=== PATIENT | male | born 1965 | race Hispanic/Latino ===

== ENCOUNTER 2017-09-30 11:13 | Emergency (ER) | payer OTHER ==
--- OUTSIDE RECORDS SUMMARY | 2017-09-30 11:15 | XMS REPORT | Clinical Summary ---
:1965 Author Organization [facility] Address [address] [place] [address] Phone Care Team Providers Name Role Phone Unavailable Primary Care Provider Unavailable Allergies No Known Allergies Current Medications Prescription Sig. Disp. Refills Start End Date Status Date gabapentin Take 300 mg by Active (NEURONTIN) 300 MG mouth 3 (three) capsule times daily. calcium acetate Take 667 mg by Active (PHOSLO) 667 mg mouth 3 (three) capsule times daily with meals. sevelamer Take 800 mg by Active (RENVELA) 800 mg mouth 3 (three) tablet times daily with meals. insulin aspart Inject 34 Units Active protamine-insulin subcutaneously 2 aspart (NOVOLOG (two) times daily MIX 70/30) 100 with breakfast and unit/mL (70-30) dinner . Soln injection omeprazole Take 20 mg by mouth Active (PRILOSEC) 20 MG daily. capsule melatonin 3 mg Tab Take 1 mg by mouth Active tablet nightly. midodrine Take 10 mg by mouth Active (PROAMATINE) 10 MG 3 (three) times tablet daily 5-10 mg 30 minutes before dialysis . amitriptyline Take 10 mg by mouth Active (ELAVIL) 10 MG nightly. tablet loratadine Take 10 mg by mouth Active (CLARITIN) 10 mg daily. tablet aspirin 81 MG EC Take 1 tablet (81 90 tablet 0 //201 12/03/ Active tablet mg total) by mouth 7 18 daily. carvedilol (COREG) Take 1 tablet 180 tablet 0 07/12/201 07/12/20 Active 3.125 MG tablet (3.125 mg total) by 7 18 mouth 2 (two) times daily. ticagrelor Take 1 tablet (90 180 tablet 0 Active (BRILINTA) 90 mg mg total) by mouth 7 Tab tablet 2 (two) times daily. atorvastatin Take 1 tablet (40 90 tablet 0 12/04/19 Active (LIPITOR) 40 MG mg total) by mouth 7 18 tablet daily. meclizine Take 25 mg by mouth 12/03/19 Discontinued (ANTIVERT) 25 mg 3 (three) times 17 tablet daily as needed (Nausea). thiamine (VITAMIN Take 100 mg by 12/03/19 Discontinued B-1) 100 MG tablet mouth daily. 17 ascorbic acid, Take 1,000 mg by 12/03/19 Discontinued vitamin C, mouth daily. 17 (VITAMIN C) 1000 MG tablet vitamin E 1000 Take 1,000 Units by 12/03/19 Discontinued UNIT capsule mouth daily. 17 Active Problems Problem Noted Date Coronary artery disease involving kaw coronary artery of kaw heart 12/03 without angina pectoris Last Assessment & Plan: Controlled at this time. Continue medications as prescribed. Pre-transplant evaluation for ESRD (end stage renal disease) 12/02/2016 Last Assessment & Plan: He will need a vascular evaluation prior to kidney transplant. Pre-transplant evaluation for chronic kidney disease 10/15/2016 ESRD (end stage renal disease) on dialysis ([facility]) 10/15/2016 Type 2 diabetes mellitus with renal complication ([facility]) 10/15/2016 Last Assessment & Plan: Continue follow up with primary care physician regarding blood glucose management. Diabetic retinopathy associated with type 2 diabetes mellitus (HCC) 10/15/2016 Diabetic neuropathy associated with type 2 diabetes mellitus ([facility]) 10/15/2016 Syncope 10/15/2016 Poor dentition 10/15/2016 Secondary hyperparathyroidism of renal origin ([facility]) 10/15/2016 Anemia in chronic kidney disease(285.21) 10/15/2016 GERD (gastroesophageal reflux disease) 10/15/2016 Obesity (BMI 35.0-39.9 without comorbidity) 10/15/2016 Last Assessment & Plan: He was encouraged to monitor his intake and exercise as tolerated. Encounters Date Type Specialty Care Team Description 06/19/2017 Telephone Transplant Alin, Follow-up Christy L 05/06/2017 Telephone Transplant Simbaparoshni, Follow-up Christy L 05/05/2017 Telephone Transplant Alin, Follow-up Christy L 01/15/2017 Office Visit Cardiology Dipak PVD (peripheral vascular Umu disease) ([facility]) (Primary MD Liss Dx) 01/15/2017 Orders Only Lab Tacho Dixon Anemia in chronic kidney A disease (CODE) ;ESRD (end stage renal disease) on dialysis ([facility]) 01/15/2017 Orders Only Transplant Anayelio, ESRD (end stage renal LUCIA Wise disease) on dialysis ([facility]) (Primary Dx);Anemia in chronic kidney disease (CODE) 12/30/2016 Evaluation Transplant Kenyatta Abdul ESRD (end stage renal MD Anjel disease) ([facility]) (Primary Lands, Vicki Dx);Coronary artery KERRY Wise disease involving kaw coronary artery of kaw heart without angina pectoris;Pre-transplant evaluation for ESRD (end stage renal disease);Obesity (BMI 35.0-39.9 without comorbidity) ([facility]) 12/16/2016 Telephone Transplant Alin, Follow-up Christy L 12/02/2016 Hospital Encounter Cardiac Pantera Nash, Anemia in chronic kidney - Intensive Care MD disease;Pre-transplant 12/03/2016 Marianne Abbasi, evaluation for ESRD (end MD stage renal disease);Diabetic polyneuropathy associated with type 2 diabetes mellitus ([facility]);ESRD (end stage renal disease) on dialysis ([facility]);Obesity (BMI 35.0-39.9 without comorbidity) ([facility]);Pre-transplant evaluation for chronic kidney disease;Secondary hyperparathyroidism of renal origin ([facility]) 12/02/2016 Orders Only General Internal Medicine 12/02/2016 Procedure Pass 12/02/2016 Surgery Pantera Nash L CATH & CORONARY ANGIOS 11/17/2016 Abstract Transplant Alecia Squires RN 11/12/2016 Committee Review Transplant Christy Ogden 10/30/2016 Documentation Transplant Alecia Squires RN 10/26/2016 Orders Only Transplant Melissa Adams, ESRD (end stage renal RN disease) ([facility]) (Primary Dx) 10/17/2016 Lab Requisition Lab Kenyatta Abdul MD 10/15/2016 Evaluation Transplant Kenyatta Abdul ESRD (end stage renal MD Anjel disease) ([facility]) (Primary Dx);Pre-transplant evaluation for chronic kidney disease;ESRD (end stage renal disease) on dialysis ([facility]);Type 2 diabetes mellitus with chronic kidney disease on chronic dialysis, with long-term current use of insulin ([facility]);Diabetic retinopathy associated with type 2 diabetes mellitus, macular edema presence unspecified, unspecified laterality, unspecified retinopathy severity ([facility]) 10/15/2016 Evaluation Transplant Madina Abdulh ESRD (end stage renal MD Anjel disease) ([facility]) 10/15/2016 Orders Only Lab Kenyatta Abdul ESRD (end stage renal MD Anjel disease) ([facility]) 10/15/2016 Hospital Encounter Cardiology Kenyatta Abdul ESRD (end stage renal MD Anjel disease) ([facility]) 10/15/2016 Hospital Encounter Radiology Madina Abdulh ESRD (end stage renal MD Anjel disease) ([facility]) 10/15/2016 Telephone Transplant Melissa Adams, Follow-up RN 10/15/2016 Social Work Transplant Sharmaine Smith LCSW 10/14/2016 Telephone Transplant Alin, Follow-up Christy Raphael after 09/29/2016 Family History Medical History Relation Name Comments Diabetes Father Heart disease Father Hypertension Father Relation Name Status Comments Father Social History Tobacco Use Types Packs/Day Years Used Date Never Smoker Smokeless Tobacco: Never Used Alcohol Use Drinks/Week oz/Week Comments No Sex Assigned at Date Recorded Not on file Last Filed Vital Signs Vital Sign Reading Time Taken Blood Pressure 127/63 01/15/2017 8:43 AM CDT Pulse 87 01/15/2017 8:43 AM CDT Temperature 36.8 C (98.2 F) 01/15/2017 8:43 AM CDT Respiratory Rate 14 01/15/2017 8:43 AM CDT Oxygen Saturation 99% 01/15/2017 8:43 AM CDT Inhaled Oxygen Concentration - - Weight 101.6 kg (224 lb) 01/15/2017 8:43 AM CDT Height 165.1 cm (5' 5") 01/15/2017 8:43 AM CDT Body Mass Index 37.28 01/15/2017 8:43 AM CDT Plan of Treatment Health Maintenance Due Date Last Done Comments INFLUENZA VACCINE 02/22/2018 Implants Implanted Type Area Chief Of Party Device Expiration Model / Identifier Date Serial / Lot Promus Premier Stents-C Coronary [place] 12/30/2017 [id number] / Implanted: Qty: 1 on 12/02/2016 by Pantera Nash MD [employer] / [id number] Procedures Procedure Name Priority Date/Time Associated Diagnosis Comments ABD AO & LOWER EXT 12/02/2016 1:42 PM CDT Z01.818 PRE TRP EVAL ANGIOS/ POSS PPI Case Notes POP6 POSS PCI L CATH & CORONARY ANGIOS 12/02/2016 1:42 PM CDT Z01.818 PRE TRP EVAL Case Notes POP6 POSS PCI after 09/29/2016 Results Occult blood, stool (01/15/2017 9:43 AM)Only the most recent of2 resultswithin the time period is included. Component Value Ref Range Occult blood Positive (A) Negative Specimen Performing Laboratory Stool [address] [address] T Spot TB (12/30/2016 8:49 AM)Only the most recent of2 resultswithin the time period is included. Component Value Ref Range T-Spot TB Negative Neg Ctrl Spot Count 1 Panel A Spot 2 Panel B Spot [address] >20 Scan Result Specimen Performing Laboratory Blood [facility] [address] [facility], [address] [place] [address] VASCULAR DIAGRAM -SCAN (12/26/2016 3:00 PM)Only the most recent of4 resultswithin the time period is included.CARDIAC CATH REPORT - SCAN (2016 11:07 AM)RHYTHM STRIP - SCAN (12/04/2016 11:07 AM)POC-Glucose meter (2016 11:29 AM)Only the most recent of6 resultswithin the time period is included. Component Value Ref Range POC-Glucose Meter 161 (H)Comment: TESTED AT [address] 70 - 110 mg/[place] [address] Specimen Performing Laboratory Blood [address] [address] Hemodialysis (12/03/2016 10:38 AM) Junior Sellers V RN 12/03/2016 10:38 AM Hd completed. Lab Results Component Value Date WBC 8.8 12/03/2016 HGB 12.3 (L) 12/03/2016 HCT 37.6 (L) 12/03/2016 MCV 101.0 (H) 12/03/2016 PLT 279 12/03/2016 Lab Results Component Value Date GLUCOSE 85 12/03/2016 CALCIUM 8.9 12/03/2016 NA 138 12/03/2016 K 5.7 (H) 12/03/2016 CO2 19 (L) 12/03/2016 CL 103 12/03/2016 BUN 59 (H) 12/03/2016 CREATININE 10.73 (H) 12/03/2016 Lab Results Component Value Date HEPBSAG Nonreactive 12/03/2016 ] Completed 3.5 hours dialysis and tolerated 2 liters off. V/s stable. Hepatitis B surface antigen (12/03/2016 7:16 AM)Only the most recent of2 resultswithin the time period is included. Component Value Ref Range hepatitis B Surface Ag Nonreactive Nonreactive Specimen Performing Laboratory Blood [address] [address] Narrative For chronic HD patients, draw HBsAg with each admission then every 30 days. CBC (Hemogram only) (12/03/2016 4:33 AM) Component Value Ref Range WBC 8.8 4.0 - 10.0 K/L RBC 3.70 (L) 4.20 - 5.80 M/L Hemoglobin 12.3 (L) 13.0 - 16.8 GM/DL Hematocrit 37.6 (L) 40.0 - 50.0 % MCV 101.0 (H) 82.0 - 98.0 fL MCH 33.2 (H) 27.0 - 33.0 pg MCHC 32.7 32.0 - 36.0 GM/DL RDW 13.3 10.3 - 14.2 % Platelets 279 150 - 430 K/CU MM MPV 6.5 6.5 - 10.5 fL nRBC 0 0 - 0 /100 WBC Specimen Performing Laboratory Blood [address] [address] Narrative 0.00 Magnesium (12/03/2016 4:33 AM) Component Value Ref Range Magnesium 2.6Comment: Specimen moderately hemolyzed 1.6 - 2.6 mg/dL Specimen Performing Laboratory Blood [address] [address] Basic metabolic panel (12/03/2016 4:33 AM)Only the most recent of2 resultswithin the time period is included. Component Value Ref Range Sodium 138 136 - 145 meq/L Potassium 5.7 (H)Comment: Specimen moderately hemolyzed 3.5 - 5.1 meq/L Chloride 103 98 - 107 meq/L CO2 19 (L) 22 - 29 meq/L BUN 59 (H) 7 - 21 mg/dL Creatinine 10.73 (H)Comment: Specimen moderately hemolyzed 0.57 - 1.25 mg/dL Glucose 85 70 - 105 mg/dL Calcium 8.9 8.4 - 10.2 mg/dL EGFR 5Comment: ESTIMATED GFR IS NOT ACCURATE CREATININE mL/min/1.73 sq m CLEARANCE IN PREDICTING GLOMERULAR FILTRATION RATE. ESTIMATED GFR IS NOT APPLICABLE FOR DIALYSIS PATIENTS. Specimen Performing Laboratory Blood [address] [address] POC ACTIVATED CLOTTING TIME (12/02/2016 8:01 PM)Only the most recent of5 resultswithin the time period is included. Component Value Ref Range Activated Clotting Time 131Comment: TESTED AT [address] sec [address] Specimen Performing Laboratory [address] [address] Potassium (12/02/2016 6:27 PM) Component Value Ref Range Potassium 5.0 3.5 - 5.1 meq/L Specimen Performing Laboratory Blood [address] [address] ECG 12 lead (12/02/2016 11:22 AM) Specimen Performing Laboratory GE MUSE Narrative Ventricular Rate 81 BPM Atrial Rate 81 BPM P-R Interval 178 ms QRS Duration 100 ms Q-T Interval 396 ms QTC Calculation(Bazett) 460 ms P [place] 54 degrees R [place] 97 degrees T [place] 55 degrees Normal sinus rhythm Rightward axis Borderline ECG When compared with ECG of 29-JUL-2016 14:48, Nonspecific T wave abnormality now evident in Anterior leads Confirmed by Rohith Alvarez Alireaz ([id number]) on 12/05/2016 7:51:44 PM Procedure Note Interface, External Ris In - 12/05/2016 7:51 PM CDT Ventricular Rate 81 BPM Atrial Rate 81 BPM P-R Interval 178 ms QRS Duration 100 ms Q-T Interval 396 ms QTC Calculation(Bazett) 460 ms P [place] 54 degrees R [place] 97 degrees T [place] 55 degrees Normal sinus rhythm Rightward axis Borderline ECG When compared with ECG of 29-JUL-2016 14:48, Nonspecific T wave abnormality now evident in Anterior leads Confirmed by Rohith Alvarez Alireaz ([id number]) on 12/05/2016 7:51:44 PM PT/aPTT (12/02/2016 10:22 AM)Only the most recent of2 resultswithin the time period is included. Component Value Ref Range Protime 13.0 11.7 - 14.7 seconds INR 1.0 <=5.9 PTT 29.2 22.5 - 36.0 seconds Specimen Performing Laboratory Blood [facility] [address] RECOMMENDED COUMADIN/WARFARIN INR THERAPY RANGES STANDARD DOSE: 2.0 - 3.0 Includes: PROPHYLAXIS for venous thrombosis, systemic embolization; TREATMENT for venous thrombosis and/or pulmonary embolus. HIGH RISK: Target INR is 2.5-3.5 for patients with mechanical heart valves. CBC with platelet count + automated diff (12/02/2016 10:22 AM)Only the most recent of2 resultswithin the time period is included. Component Value Ref Range WBC 6.1 4.0 - 10.0 K/L RBC 3.71 (L) 4.20 - 5.80 M/L Hemoglobin 12.4 (L) 13.0 - 16.8 GM/DL Hematocrit 36.8 (L) 40.0 - 50.0 % MCV 99.2 (H) 82.0 - 98.0 fL MCH 33.4 (H) 27.0 - 33.0 pg MCHC 33.6 32.0 - 36.0 GM/DL RDW 14.0 10.3 - 14.2 % Platelets 297 150 - 430 K/CU MM MPV 6.3 (L) 6.5 - 10.5 fL nRBC 0 0 - 0 /100 WBC % Neutros 62 % % Lymphs 26 % % Monos 9 % % Eos 2 % % Baso 1 % # Neutros 3.83 1.80 - 8.00 K/L # Lymphs 1.59 1.48 - 4.50 K/L # Monos 0.55 0.00 - 1.30 K/L # Eos 0.13 0.00 - 0.50 K/L # Baso 0.05 0.00 - 0.20 K/L Specimen Performing Laboratory Blood [address] [address] Narrative 0.00 CBC with platelet count + automated diff (12/02/2016 10:22 AM)Only the most recent of2 resultswithin the time period is included. Specimen Performing Laboratory Blood Narrative The following orders were created for panel order CBC with platelet count + automated diff. Procedure Abnormality Status --------- ------ CBC with platelet count ...[[id number]]AbnormalFinal result Please view results for these tests on the individual orders. HLA Testing (External Results) (10/15/2016 12:32 PM) Component Value Ref Range HLA TESTING (EXTERNAL) See Separate Report Specimen Performing Laboratory Blood [facility] IMMUNE EVALUATION LAB [facility] [place], [place]:[address] [address] HIV-1 Antigen with HIV-1/2 Antibody (10/15/2016 12:32 PM) Component Value Ref Range HIV-1 Antigen with HIV 1&2 Antibody Nonreactive Nonreactive Specimen Performing Laboratory Blood [address] [address] Hepatitis C Antibody (10/15/2016 12:32 PM) Component Value Ref Range Hepatitis C Ab Nonreactive Nonreactive Specimen Performing Laboratory [address] [address] Cytomegalovirus antibody, IgM (10/15/2016 12:32 PM) Component Value Ref Range CMV IgM Negative Specimen Performing Laboratory Blood [address] [address] Hepatitis B core antibody, IgM (10/15/2016 12:32 PM) Component Value Ref Range Hep B C IgM Nonreactive Nonreactive Specimen Performing Laboratory Blood [address] [address] EBV-VCA antibody, IgM (10/15/2016 12:32 PM) Component Value Ref Range EBV VCA IgM Negative Specimen Performing Laboratory [address] [address] EBV-VCA antibody, IgG (10/15/2016 12:32 PM) Component Value Ref Range EBV VCA IgG Positive Specimen Performing Laboratory Blood [address] [address] Blood typing, automated (10/15/2016 12:32 PM) Component Value Ref Range ABO/RH AUTOMATED (BEAKER) O POSITIVE Specimen Performing Laboratory [address] [address] RPR (10/15/2016 12:32 PM) Component Value Ref Range RPR Nonreactive Nonreactive Specimen Performing Laboratory Blood [address] [address] Hepatitis B surface antibody (10/15/2016 12:32 PM) Component Value Ref Range Hep B S Ab 9.6 (H) <8.0 mIU/mL Specimen Performing Laboratory Blood [address] [address] Cytomegalovirus antibody, IgG (10/15/2016 12:32 PM) Component Value Ref Range CMV IgG Positive Specimen Performing Laboratory Blood [address] [address] Direct AHG (SHIRIN)/Direct Efraín (10/15/2016 12:32 PM) Component Value Ref Range Direct AHG-IGG NEGATIVE Direct AHG-C3B, C3D NEGATVIE Specimen Performing Laboratory [address] [address] Varicella Zoster Antibody, IgG (10/15/2016 12:32 PM) Component Value Ref Range Varicella IgG 1.6 Al Specimen Performing Laboratory [address] [address] Narrative VARICELLA ZOSTER RESULT INTERPRETATIONS: <=0.8 AlNonreactive:Presumed non-immune to VZV 0.9-1.0 AlEquivocal >=1.1 AlReactive:Presumed immune to VZV Uric Acid (10/15/2016 12:32 PM) Component Value Ref Range Uric Acid 3.9 2.6 - 7.2 mg/dL Specimen Performing Laboratory [address] [address] PSA (10/15/2016 12:32 PM) Component Value Ref Range PSA 0.7 0.0 - 4.0 ng/mL Specimen Performing Laboratory Blood [address] [address] Phosphorus (10/15/2016 12:32 PM) Component Value Ref Range Phosphorus 3.3 2.3 - 4.7 mg/dL Specimen Performing Laboratory [address] [address] PTH, Intact (10/15/2016 12:32 PM) Component Value Ref Range PTH 289.5 (H) 8.5 - 72.5 pg/mL Specimen Performing Laboratory [address] [address] Narrative Effective 04/11/2014: Reference Range Change New: 8.5-72.5 Previous: 15.0-90.0 Lactate Dehydrogenase (LDH) (10/15/2016 12:32 PM) Component Value Ref Range LDH 161 125 - 220 U/L Specimen Performing Laboratory [address] [address] Hemoglobin A1c (10/15/2016 12:32 PM) Component Value Ref Range Hemoglobin A1C 5.9 4.3 - 6.1 % Specimen Performing Laboratory [address] [address] Gamma Glutamyl Transferase (GGT) (10/15/2016 12:32 PM) Component Value Ref Range GGT 12 9 - 64 U/L Specimen Performing Laboratory [address] [address] Lipid panel (10/15/2016 12:32 PM) Component Value Ref Range Triglycerides 230 mg/dL Cholesterol 141 mg/dL HDL 29 mg/dL LDL Calculated 66 mg/dL Specimen Performing Laboratory [address] [address] Narrative Triglyceride Reference Range: Low Risk <150 [id number] High Risk 200-499 Very High Risk>=500 Cholesterol Reference Range: Low Risk <200 [id number] High Risk>240 HDL Cholesterol Reference Range: Low Risk >=60 High Risk <40 LDL Cholesterol Reference Range: Optimal<100 Near Qjefrye165-579 [id number] Lerw522-680 Very High >=190 Comprehensive metabolic panel (10/15/2016 12:32 PM) Component Value Ref Range Protein, Total 7.3 6.0 - 8.3 gm/dL Albumin 3.9 3.5 - 5.0 g/dL Alkaline Phosphatase 130 40 - 150 U/L Total Bilirubin 0.3 0.2 - 1.2 mg/dL Sodium 135 (L) 136 - 145 meq/L Potassium 4.9 3.5 - 5.1 meq/L Chloride 99 98 - 107 meq/L CO2 26 22 - 29 meq/L BUN 29 (H) 7 - 21 mg/dL Creatinine 7.30 (H) 0.57 - 1.25 mg/dL Glucose 176 (H) 70 - 105 mg/dL Calcium 9.3 8.4 - 10.2 mg/dL AST 18 5 - 34 U/L ALT 16 6 - 55 U/L EGFR 8Comment: ESTIMATED GFR IS NOT ACCURATE mL/min/1.73 sq m CREATININE CLEARANCE IN PREDICTING GLOMERULAR FILTRATION RATE. ESTIMATED GFR IS NOT APPLICABLE FOR DIALYSIS PATIENTS. Specimen Performing Laboratory Blood [address] [address] Flow PRA Class I and II (10/15/2016 12:00 PM) Component Value Ref Range Date of Serum [id number] Serum# [id number] Flow PRA Class I and II See Scanned Report Specimen Performing Laboratory Blood [facility] IMMUNE EVALUATION LAB [facility] [place], MS:[address] [address] HLA Typing (10/15/2016 12:00 PM) Component Value Ref Range HLA Result See Scanned Report HLA-A AG1 HLA-A AG2 HLA-B AG1 HLA-B AG2 HLA-C AG1 HLA-C AG2 HLA-DR AG1 HLA-DR 2nd Antigen HLA-DQ AG1 HLA-DQ AG2 HLA-DRW Specimen Performing Laboratory Blood [facility] IMMUNE EVALUATION LAB [facility] [place], [place]:[facility] [address] [place] [address] Stress Echo With Tracing (10/15/2016 10:37 AM) Component Value Ref Range Ejection Fraction LV EF 71.7 % (63-77) Index 35 %/m2 Specimen Performing Laboratory DIGISONICS Narrative Echocardiography Laboratory [address] [place] [address] Voice:[phone] Stress Echocardiogram Pat.Name:MATTHEW GAMBINO Pat.ID:[id number] St.Date: 10/15/2016 Refer.MD:Franko Hobbs Exam Time: 10:37:00 AM Study Type:Echo Complete Height:25.59in Weight:479.6lb BSA: 2.05 m2 DOBAge:1965,51Y Sex: MALEBP:149/69 HR:77 bpm Sonogrphr: Abdias Munoz, RDCS,RVT Pat. Stat.:OutpatientRoom:op Reason for Study:Pre-surgical evaluation of organ transplant History / Clinical:ESRD, Hyperlipidemia, Hypertension Procedures:STRESS ECHO, Definity contrast done SUMMARY: Overall Stress Interp: Normal Stress echo. No evidence of ischemia. Resting echocardographic study is normal with normal chamber sizes and wall motion throughout. Dobutamine infusion was carried out to a peak dose of 30 mcg/kg/min. Target HR 145 bpm achieved Max BP 138/74 No chest pain or ischemic EKG changes were found. Echocardiography was performed throughout the study.Wall motion was enhanced in all regions with no segmental abnormalities noted. In conclusion, the study strongly rules against clinically threatening coronary artery disease. These findings are consistent with low risk stress findings. FINDINGS: RESTING FINDINGS LV: Left ventricular chamber size (by vol index) is normal (male -LVED vol - 34-74 ml/m2). Overall wall motion is normal. LVfunction is normal. Estimated EF is >60%. All norman are normal RV: RV function is normal. RV wall motion is normal. STRESS FINDINGS RV: RV function is normal. RV wall motion is normal. LV: LV function is hyperdynamic. Overall stress wall motion is normal.Estimated EF is >70%. All norman are normal STRESS: Baseline Vital Signs: HR:77 BP:149/69 Stress Test Results: Max HR:146 Target HR: 145 % Target:100 % Max BP:138/74 Max RPP: [id number] Symptoms and Complications: Overall Stress Interp: Normal Stress echo. No evidence of ischemia. MEASUREMENTS: 2D LV EF SinglePlane LV Ad 30.2 cm2(9.5-22.3)* LV CO 4.93 l/min LV As 14.1 cm2(4-11.6)* LV CI 2.4 l/min/m2 LVEDV 89.2 ml (65-193) Index43.5 ml/m2 LV SV 64 ml LVESV 25.3 mlHR77 bpm Left Ventricle LV A% 53.3 %(36-64) WALL MOTION: RESTING WALL MOTION: All norman are normal Wall Index=1 STRESS WALL MOTION: All norman are normal Stress Wall Index=1 Signed 10/15/2016 04:15 PM Rosendo Hutchinson M.D. Procedure Note Interface, External Ris In - 10/15/2016 4:16 PM CDT Echocardiography Laboratory [address] [place] [address] Voice: [phone] Stress Echocardiogram Pat.Name: MATTHEW GAMBINO Pat.ID: [id number] St.Date: 10/15/2016 Refer.MD: Franko Hobbs Exam Time: 10:37:00 AM Study Type:Echo Complete Height: 25.59in Weight: 479.6lb BSA: 2.05 m2 Age: 12 1965,51Y Sex: MALE BP: 149/69 HR: 77 bpm Sonogrphr: Abdias Munoz, RDCS,RVT Pat. Stat.:Outpatient Room: op Reason for Study:Pre-surgical evaluation of organ transplant History / Clinical:ESRD, Hyperlipidemia, Hypertension Procedures:STRESS ECHO, Definity contrast done SUMMARY: Overall Stress Interp: Normal Stress echo. No evidence of ischemia. Resting echocardographic study is normal with normal chamber sizes and wall motion throughout. Dobutamine infusion was carried out to a peak dose of 30 mcg/kg/min. Target HR 145 bpm achieved Max BP 138/74 No chest pain or ischemic EKG changes were found. Echocardiography was performed throughout the study. Wall motion was enhanced in all regions with no segmental abnormalities noted. In conclusion, the study strongly rules against clinically threatening coronary artery disease. These findings are consistent with low risk stress findings. FINDINGS: RESTING FINDINGS LV: Left ventricular chamber size (by vol index) is normal (male - LVED vol - 34-74 ml/m2). Overall wall motion is normal. LV function is normal. Estimated EF is >60%. All norman are normal RV: RV function is normal. RV wall motion is normal. STRESS FINDINGS RV: RV function is normal. RV wall motion is normal. LV: LV function is hyperdynamic. Overall stress wall motion is normal. Estimated EF is >70%. All norman are normal STRESS: Baseline Vital Signs: HR: 77 BP: 149/69 Stress Test Results: Max HR: 146 Target HR: 145 % Target: 100 % Max BP: 138/74 Max RPP: 82067 Symptoms and Complications: Overall Stress Interp: Normal Stress echo. No evidence of ischemia. MEASUREMENTS: 2D LV EF SinglePlane LV Ad 30.2 cm2 (9.5-22.3)* LV CO 4.93 l/min LV As 14.1 cm2 (4-11.6)* LV CI 2.4 l/min/m2 LVEDV 89.2 ml (65-193) Index 43.5 ml/m2 LV SV 64 ml LVESV 25.3 ml HR 77 bpm Left Ventricle LV A% 53.3 % (36-64) WALL MOTION: RESTING WALL MOTION: All norman are normal Wall Index=1 STRESS WALL MOTION: All norman are normal Stress Wall Index=1 Signed 10/15/2016 04:15 PM Rosendo Hutchinson M.D. 2D Echo W/Doppler(CW/PW/Color) (10/15/2016 10:10 AM) Specimen Performing Laboratory [facility] Narrative Echocardiography Laboratory [address] [place] [address] Voice:[phone] Transthoracic Echocardiogram Pat.Name:MATTHEW GAMBINO Pat.ID:[id number] .Date: 10/15/2016 Refer.MD:Franko Hobbs Exam Time: 10:10:00 AM Study Type:Echo Complete Height:25.59in Weight:479.6lb BSA: 2.05 m2 DOBAge:1965,51Y Sex: MALEBP:149/69 HR:77 bpm Sonogrphr: Abdias Munoz RDCS,RVT Pat. Stat.:OutpatientRoom:OP Reason for Study:Pre-surgical evaluation of organ transplant History / Clinical:ESRD, Hyperlipidemia, Hypertension Procedures:2D ECHO W/ DOPPLER (CW/PW/COLOR) SUMMARY: Regular sinus rhythm during the exam. Left ventricular chamber size (by vol index) is normal (male - LVED vol - 34-74 ml/m2). Moderate concentric LV hypertrophy. All of the LV segments contract normally. LVEF by quantitative assessment is increased (>70%). Grade 1 diastolic dysfunction (impaired relaxation and low-normal LA pressure). LA size is normal (16-34 ml/m2). The right ventricular chamber size and systolic function are within normal limits. A trace of tricuspid regurgitation. Estimated Peak systolic PA pressure is 30-35 mm Hg. Aortic root size (Sinus of Valsalva diameter) is normal. The estimated RA pressure by IVC dynamics 5-10 mmHg. FINDINGS: Rhythm/BP: Regular sinus rhythm during the exam. LV: All of the LV segments contract normally. Left ventricular chambersize (by vol index) is normal (male - LVED vol - 34-74ml/m2). Moderate concentric LV hypertrophy. LVEF by quantitativeassessment is increased (>70%). Grade 1 diastolicdysfunction (impaired relaxation and low- normal LApressure). LA: LA size is normal (16-34 ml/m2). RV: The right ventricular chamber size and systolic function are withinnormal limits. RA: RA cavity size is normal. AV: Normal AoV structure and function. MV: Normal MV structure and function. TV: Normal TV structure and function. A trace of tricuspid regurgitation.Estimated Peak systolic PA pressure is 30 -35 mmHg. PV: Normal PV structure and function. AO: Aortic root size (Sinus of Valsalva diameter) is normal. Proximalascending aorta size is normal. Pericard: No pericardial effusion is visualized. Systemic Veins: The estimated RA pressure by IVC dynamics 5-10 mmHg. Quality:Technically excellent exam. MEASUREMENTS: 2D LV EF SinglePlane LV Ad 26.8 cm2(9.5-22.3)* LVESV 9.15 ml LV As 8.46 cm2(4-11.6) LV EF 88 %(63-77)* Index42.9 %/m2 LVEDV 76.1 ml (65-193) Index37.1 ml/m2 LV SV 67 ml Left Ventricle LV A% 68.5 % LV CI 2.52 l/min/m2 LV CO 5.16 l/min LA Sng Plane LA Vol57.1 mlIndex 27.9 ml/m2 LA Area 21 cm2(8.8-23.4) Aorta Ao Sin2.85 cm (2.5-3.3) Parasternal Long [place] Ao An 2.07 cm (1.4-2.6) LV%fs 54.6 %(25-46)* Ao Rtd2.98 cmLVPWd 1.51 cm IVSd1.24 cm LA Ds 3.61 cm (2.3-3.9) LVIDd4.6 cm (4.3-5.1) LV Wmn 1.38 cm LVIDs 2.09 cm (2-4) DOPPLER AV LVOT For Flow [id number] cm/s (70-110)* LVOT CO 6.77 l/min LVOT VTI26.1 cmLVOT CI3.3 l/min/m2 LVOTpkPG7.29 mmHgLVOT Area 3.46 cm2 LVOTmnPG3.19 xvXxPL17 bpm LVOT SV 90.5 ml Aortic Valve AV DI0.981 SVi (LVOT)44.2 AV AV For Flow/EDWARD AV pkVel 143 cm/s (100-170) AV AC/ET 0.259 AV mnVel91.3 cm/sAVpkAcRt 8736 cm/s2 AV pkPG 8.21 mmHgAV DeRt 491 cm/s2 AV mnPG4 mmHgArea (VTI) 3.4 cm2(3-5) AV VTI26.7 cmArea (Jewel) 3.26 cm2(3-5) AV ET292 msec AV AC 76 msec (83-118)* Signed 10/16/2016 07:12 AM Shahram Ernandez M.D. Procedure Note Interface, External Ris In - 10/16/2016 7:14 AM CDT Echocardiography Laboratory [address] [place] [address] Voice: [phone] Transthoracic Echocardiogram Pat.Name: MATTHEW GAMBINO Pat.ID: [id number] .Date: 10/15/2016 Refer.MD: Franko Hobbs Exam Time: 10:10:00 AM Study Type:Echo Complete Height: 25.59in Weight: 479.6lb BSA: 2.05 m2 Age: 12 1965,51Y Sex: MALE BP: 149/69 HR: 77 bpm Sonogrphr: Abdias Munoz RDCS,RVT Pat. Stat.:Outpatient Room: OP Reason for Study:Pre-surgical evaluation of organ transplant History / Clinical:ESRD, Hyperlipidemia, Hypertension Procedures:2D ECHO W/ DOPPLER (CW/PW/COLOR) SUMMARY: Regular sinus rhythm during the exam. Left ventricular chamber size (by vol index) is normal (male - LVED vol - 34-74 ml/m2). Moderate concentric LV hypertrophy. All of the LV segments contract normally. LVEF by quantitative assessment is increased (>70%). Grade 1 diastolic dysfunction (impaired relaxation and low-normal LA pressure). LA size is normal (16-34 ml/m2). The right ventricular chamber size and systolic function are within normal limits. A trace of tricuspid regurgitation. Estimated Peak systolic PA pressure is 30-35 mm Hg. Aortic root size (Sinus of Valsalva diameter) is normal. The estimated RA pressure by IVC dynamics 5-10 mmHg. FINDINGS: Rhythm/BP: Regular sinus rhythm during the exam. LV: All of the LV segments contract normally. Left ventricular chamber size (by vol index) is normal (male - LVED vol - 34-74 ml/m2). Moderate concentric LV hypertrophy. LVEF by quantitative assessment is increased (>70%). Grade 1 diastolic dysfunction (impaired relaxation and low-normal LA pressure). LA: LA size is normal (16-34 ml/m2). RV: The right ventricular chamber size and systolic function are within normal limits. RA: RA cavity size is normal. AV: Normal AoV structure and function. MV: Normal MV structure and function. TV: Normal TV structure and function. A trace of tricuspid regurgitation. Estimated Peak systolic PA pressure is 30-35 mm Hg. PV: Normal PV structure and function. AO: Aortic root size (Sinus of Valsalva diameter) is normal. Proximal ascending aorta size is normal. Pericard: No pericardial effusion is visualized. Systemic Veins: The estimated RA pressure by IVC dynamics 5-10 mmHg. Quality: Technically excellent exam. MEASUREMENTS: 2D LV EF SinglePlane LV Ad 26.8 cm2 (9.5-22.3)* LVESV 9.15 ml LV As 8.46 cm2 (4-11.6) LV EF 88 % (63-77)* Index 42.9 %/m2 LVEDV 76.1 ml (65-193) Index 37.1 ml/m2 LV SV 67 ml Left Ventricle LV A% 68.5 % LV CI 2.52 l/min/m2 LV CO 5.16 l/min LA Sng Plane LA Vol 57.1 ml Index 27.9 ml/m2 LA Area 21 cm2 (8.8-23.4) Aorta Ao Sin 2.85 cm (2.5-3.3) Parasternal Long [place] Ao An 2.07 cm (1.4-2.6) LV%fs 54.6 % (25-46)* Ao Rtd 2.98 cm LVPWd 1.51 cm IVSd 1.24 cm LA Ds 3.61 cm (2.3-3.9) LVIDd 4.6 cm (4.3-5.1) LV Wmn 1.38 cm LVIDs 2.09 cm (2-4) DOPPLER AV LVOT For Flow LVOTpkVel 135 cm/s (70-110)* LVOT CO 6.77 l/min LVOT VTI 26.1 cm LVOT CI 3.3 l/min/m2 LVOTpkPG 7.29 mmHg LVOT Area 3.46 cm2 LVOTmnPG 3.19 mmHg HR 75 bpm LVOT SV 90.5 ml Aortic Valve AV DI 0.981 SVi (LVOT) 44.2 AV AV For Flow/EDWARD AV pkVel 143 cm/s (100-170) AV AC/ET 0.259 AV mnVel 91.3 cm/s AVpkAcRt 8736 cm/s2 AV pkPG 8.21 mmHg AV DeRt 491 cm/s2 AV mnPG 4 mmHg Area (VTI) 3.4 cm2 (3-5) AV VTI 26.7 cm Area (Jewel) 3.26 cm2 (3-5) AV ET 292 msec AV AC 76 msec (83-118)* Signed 10/16/2016 07:12 AM Shahram Ernandez M.D. CTA abdomen & pelvis (10/15/2016 9:09 AM) Specimen Performing Laboratory [facility] Narrative Addendum Begins REPORT STATUS:A Addendum I have reviewed the nonvascular findings and concur with Dr. Mancilla's report. Signed: Ignacia Roach MD Report Verified Date/Time:10/15/2016 14:01:10 Reading Location: [place] [address] Angio Body Reading Room Addendum Ends FINAL REPORT CT angiography of the abdominal aorta and pelvic arteries, 15 Oct 2016 COMPARISON: None available INDICATION: This is a 51 year old male with end-stage renal disease presents for pretransplant assessment. This study is performed in an attempt to avoid an invasive procedure. TECHNIQUE: Spiral acquisition during intravenous contrast administration using a Jessica multidetector CT scanner. Images were obtained before and during the dynamic passage of intravenous contrast material.Multi-planar 3-D volume-rendering reconstruction was performed using an independent workstation interactively by the interpreting physician as well as the 3-D specialist for optimal visualisation of the abdominal aorta, pelvic arteries, and its proximal branches. Please refer to the contrast sheet scanned in the RIS system for the amount and route of contrast given. This exam was performed according to our departmental dose-optimisation programme, which includes automated exposure control, adjustment of the mA and/or kV according to patient size and/or use of iterative reconstruction technique. FINDINGS: VASCULAR:- The abdominal aorta is normal in course, calibre and contour. No obvious atherosclerosis is identified. There is no evidence of acute aortic pathology, specifically, there is no dissection, intramural hematoma, or contained rupture. Quantitative dimensions of the abdominal aorta are as follows: 2.0 cm at the mesenteric segment; 1.7 cm at the renal segment,; and 1.4 cm at the aortic bifurcation. The common iliac, external iliac, common femoral, and the visualized superficial femoral arteries, bilaterally, are widely patent, except for eccentric calcification. Secondary Education Professor dimensions of the left and the right external iliac arteries are 7 - 8 and 8 - 9 mm, respectively. Similarly, the associated pelvic veins are patent with no venous thrombosis identified.Secondary Education Professor dimensions of the left and the right external iliac veins are 11 and 11 mm, respectively. There are single left and right renal arteries that are widely patent. The celiac axis, SMA, and LIZBETH are widely patent.There are single left and right renal veins that drain normally into inferior vena cava. NON-VASCULAR:- The lung bases are unremarkable. No pleural effusion is identified. Minimal atelectatic changes are seen. In the abdomen, the liver and spleen appears unremarkable. The liver edge is smooth. No abnormal enhancing structure is identified. Calcified granuloma is identified in the spleen. Patient is post cholecystectomy. The adrenal glands are not enlarged. The spleen appears grossly unremarkable. Patient has end-stage renal disease status. Some renal vascular calcification is seen. The kidneys are atrophic. No hydronephrosis or perirenal fluid collection is present. Bowel is not well assessed by CT angiography as enteric contrast is not given. No obvious bowel dilation is identified. Bilateral fat-containing inguinal hernia is identified. The appendix appears unremarkable. Incidental note, probable duodenal diverticulum is identified. No free air free fluid seen in the abdomen and pelvis. The prostate gland appears unremarkable. The bladder is not distended. No free air free fluid seen in the abdomen and pelvis. No significant retroperitoneal adenopathy is identified. Small lymph nodes are seen in both groins, considered nonspecific in nature. No acute bony pathology is identified. Sclerotic focus is identified in the left pelvic level image 250, also in the right at image 250, likely represent bone islands. Another bone island is identified in the right femoral head image 222. CONCLUSIONS: 1.The abdominal aorta is normal in course, calibre and contour. There is no evidence of acute aortic pathology, specifically, there is no dissection, intramural hematoma, or contained rupture. Quantitative dimension of the abdominal aorta are as noted. The pelvic arteries and veins are widely patent with no arterial stenosis or venous thrombosis identified. Secondary Education Professor dimensions of the left and the right external iliac arteries and veins are as described above. 2.Patent mesenteric and renal arteries. 3.Other findings as described above 4.An addendum will be dictated regarding the non-vascular findings by the [employer] Maker Radiologist. Signed: Ozzie Mancilla MD Report Verified Date/Time:10/15/2016 09:28:11 Reading Location: [place] [address] Cardiology MRI Procedure Note Interface, External Ris In - 10/15/2016 2:03 PM CDT Addendum Begins REPORT STATUS:A Addendum I have reviewed the nonvascular findings and concur with Dr. Mancilla's report. Signed: Ignacia Roach MD Report Verified Date/Time: 10/15/2016 14:01:10 Reading Location: [place] [id number] Angio Body Reading Room Addendum Ends FINAL REPORT CT angiography of the abdominal aorta and pelvic arteries, 15 Oct 2016 COMPARISON: None available INDICATION: This is a 51 year old male with end-stage renal disease presents for pretransplant assessment. This study is performed in an attempt to avoid an invasive procedure. TECHNIQUE: Spiral acquisition during intravenous contrast administration using a Jessica multidetector CT scanner. Images were obtained before and during the dynamic passage of intravenous contrast material. Multi-planar 3-D volume-rendering reconstruction was performed using an independent workstation interactively by the interpreting physician as well as the 3-D specialist for optimal visualisation of the abdominal aorta, pelvic arteries, and its proximal branches. Please refer to the contrast sheet scanned in the RIS system for the amount and route of contrast given. This exam was performed according to our departmental dose-optimisation programme, which includes automated exposure control, adjustment of the mA and/or kV according to patient size and/or use of iterative reconstruction technique. FINDINGS: VASCULAR:- The abdominal aorta is normal in course, calibre and contour. No obvious atherosclerosis is identified. There is no evidence of acute aortic pathology, specifically, there is no dissection, intramural hematoma, or contained rupture. Quantitative dimensions of the abdominal aorta are as follows: 2.0 cm at the mesenteric segment; 1.7 cm at the renal segment,; and 1.4 cm at the aortic bifurcation. The common iliac, external iliac, common femoral, and the visualized superficial femoral arteries, bilaterally, are widely patent, except for eccentric calcification. Secondary Education Professor dimensions of the left and the right external iliac arteries are 7 - 8 and 8 - 9 mm, respectively. Similarly, the associated pelvic veins are patent with no venous thrombosis identified. Secondary Education Professor dimensions of the left and the right external iliac veins are 11 and 11 mm, respectively. There are single left and right renal arteries that are widely patent. The celiac axis, SMA, and LIZBETH are widely patent. There are single left and right renal veins that drain normally into inferior vena cava. NON-VASCULAR:- The lung bases are unremarkable. No pleural effusion is identified. Minimal atelectatic changes are seen. In the abdomen, the liver and spleen appears unremarkable. The liver edge is smooth. No abnormal enhancing structure is identified. Calcified granuloma is identified in the spleen. Patient is post cholecystectomy. The adrenal glands are not enlarged. The spleen appears grossly unremarkable. Patient has end-stage renal disease status. Some renal vascular calcification is seen. The kidneys are atrophic. No hydronephrosis or perirenal fluid collection is present. Bowel is not well assessed by CT angiography as enteric contrast is not given. No obvious bowel dilation is identified. Bilateral fat-containing inguinal hernia is identified. The appendix appears unremarkable. Incidental note, probable duodenal diverticulum is identified. No free air free fluid seen in the abdomen and pelvis. The prostate gland appears unremarkable. The bladder is not distended. No free air free fluid seen in the abdomen and pelvis. No significant retroperitoneal adenopathy is identified. Small lymph nodes are seen in both groins, considered nonspecific in nature. No acute bony pathology is identified. Sclerotic focus is identified in the left pelvic level image 250, also in the right at image 250, likely represent bone islands. Another bone island is identified in the right femoral head image 222. CONCLUSIONS: 1. The abdominal aorta is normal in course, calibre and contour. There is no evidence of acute aortic pathology, specifically, there is no dissection, intramural hematoma, or contained rupture. Quantitative dimension of the abdominal aorta are as noted. The pelvic arteries and veins are widely patent with no arterial stenosis or venous thrombosis identified. Secondary Education Professor dimensions of the left and the right external iliac arteries and veins are as described above. 2. Patent mesenteric and renal arteries. 3. Other findings as described above 4. An addendum will be dictated regarding the non-vascular findings by the Top Col[employer] Maker Radiologist. Signed: Ozzie Mancilla MD Report Verified Date/Time: 10/15/2016 09:28:11 Reading Location: [place] [address] Cardiology MRI after 09/29/2016
--- OUTSIDE RECORDS SUMMARY | 2017-09-30 11:16 | XMS REPORT ---
:1965 Author Organization [facility] Address [address] [place] [address] Care Team Providers Name Role Phone MYNOR GARCIA Unavailable Unavailable VERITO HARDING Unavailable Unavailable Problems This patient has no known problems. Allergies, Adverse Reactions, Alerts This patient has no known allergies or adverse reactions. Medications This patient has no known medications. Results Test Description Test Time Test Comments Text Results Atomic Results Result Comments OCCULT BLOOD, STOOL 2017-01-15 17:11:00 Test Item Value Reference Range Comments FECAL OCCULT BLOOD (BEAKER) (test zlko=716) Positive Negative OCCULT BLOOD, [id number] 17:02:00 Test Item Value Reference Range Comments FECAL OCCULT BLOOD (BEAKER) (test ewmb=898) Negative Negative POCT-GLUCOSE [id number] 11:41:00 Test Item Value Reference Range Comments POC-GLUCOSE METER (BEAKER) 161 mg/dL 70-110 TESTED AT [address] (test dptw=6460) [place] [address] HEPATITIS B SURFACE [id number] 08:02:00 Test Item Value Reference Range Comments HEPATITIS B SURFACE ANTIGEN (2) (BEAKER) (test Nonreactive Nonreactive xbig=8836) For chronic HD patients, draw HBsAg with each admission then every 30 days.POCT- GLUCOSE [id number] 07:52:00 Test Item Value Reference Range Comments POC-GLUCOSE METER (BEAKER) 98 mg/dL 70-110 TESTED AT [place] [id number] [facility] (test urfx=1224) [place] [id number] BASIC METABOLIC [id number] 05:13:00 Test Item Value Reference Range Comments SODIUM (BEAKER) (test 138 meq/L 136-145 kkid=698) POTASSIUM (BEAKER) (test 5.7 meq/L 3.5-5.1 Specimen moderately eimu=978) hemolyzed CHLORIDE (BEAKER) (test 103 meq/L 98-107 fdtx=937) CO2 (BEAKER) (test 19 meq/L 22-29 jnml=037) BLOOD UREA NITROGEN 59 mg/dL 7-21 (BEAKER) (test abep=673) CREATININE (BEAKER) (test 10.73 mg/dL 0.57-1.25 Specimen moderately zuqz=420) hemolyzed GLUCOSE RANDOM (BEAKER) 85 mg/dL 70-105 (test lvul=174) CALCIUM (BEAKER) (test 8.9 mg/dL 8.4-10.2 bemm=961) EGFR (BEAKER) (test 5 mL/min/1.73 sq m ESTIMATED GFR IS NOT qsqp=0344) ACCURATE CREATININE CLEARANCE IN PREDICTING GLOMERULAR FILTRATION RATE. ESTIMATED GFR IS NOT APPLICABLE FOR DIALYSIS PATIENTS. CBC (HEMOGRAM ONLY)2016-12-03 05:09:00 Test Item Value Reference Range Comments WHITE BLOOD CELL COUNT (BEAKER) (test hrpr=194) 8.8 K/ L 4.0-10.0 RED BLOOD CELL COUNT (BEAKER) (test zrsi=553) 3.70 M/ L 4.20-5.80 HEMOGLOBIN (BEAKER) (test benp=838) 12.3 GM/DL 13.0-16.8 HEMATOCRIT (BEAKER) (test myfm=809) 37.6 % 40.0-50.0 MEAN CORPUSCULAR VOLUME (BEAKER) (test ywpe=418) 101.0 fL 82.0-98.0 MEAN CORPUSCULAR HEMOGLOBIN (BEAKER) (test 33.2 pg 27.0-33.0 ickg=075) MEAN CORPUSCULAR HEMOGLOBIN CONC (BEAKER) (test 32.7 GM/DL 32.0-36.0 jlka=997) RED CELL DISTRIBUTION WIDTH (BEAKER) (test 13.3 % 10.3-14.2 qveq=685) PLATELET COUNT (BEAKER) (test husg=481) 279 K/CU MM 150-430 MEAN PLATELET VOLUME (BEAKER) (test ibxt=171) 6.5 fL 6.5-10.5 NUCLEATED RED BLOOD CELLS (BEAKER) (test 0 /100 WBC 0-0 lnyw=890) [id number] 05:03:00 Test Item Value Reference Range Comments MAGNESIUM (BEAKER) (test 2.6 mg/dL 1.6-2.6 Specimen moderately hemolyzed yqji=747) POCT-GLUCOSE [id number] 23:31:00 Test Item Value Reference Range Comments POC-GLUCOSE METER (BEAKER) 109 mg/dL 70-110 TESTED AT [address] (test vgge=5013) [place] [address] [id number] 20:10:00 Test Item Value Reference Range Comments ACTIVATED CLOTTING TIME 131 sec TESTED AT [place] [address] [address] (BEAKER) (test fxnu=814) [place] [address] [id number] 18:55:00 Test Item Value Reference Range Comments POTASSIUM (BEAKER) (test wpre=065) 5.0 meq/L 3.5-5.1 [id number] 18:36:00 Test Item Value Reference Range Comments ACTIVATED CLOTTING TIME 147 sec [address] (BEAKER[address] (test ifhs=716) [place] [address] POCT-GLUCOSE [id number] 16:22:00 Test Item Value Reference Range Comments POC-GLUCOSE METER (BEAKER) 82 mg/dL 70-110 TESTED AT [address] (test zaql=3121) [place] [address] [id number] 15:40:00 Test Item Value Reference Range Comments ACTIVATED CLOTTING TIME 208 sec TESTED AT [place] [address] [address] (BEAKER) (test pgic=307) [place] [address] [id number] 14:31:00 Test Item Value Reference Range Comments ACTIVATED CLOTTING TIME 224 sec TESTED AT [place] [address] [address] (BEAKER) (test vryn=633) [place] [address] [id number] 14:31:00 Test Item Value Reference Range Comments ACTIVATED CLOTTING TIME 411 sec TESTED AT [place] [address] [address] (BEAKER) (test nedw=686) [place] [address] POCT-GLUCOSE [id number] 13:29:00 Test Item Value Reference Range Comments POC-GLUCOSE METER (BEAKER) 130 mg/dL 70-110 TESTED AT [address] (test omiw=8123) [place] [address] POCT-GLUCOSE [id number] 13:01:00 Test Item Value Reference Range Comments POC-GLUCOSE METER (BEAKER) 32 mg/dL 70-110 Notified LUCIA CARRILLO/TESTED AT [facility] (test caim=2283) [address] [facility] [address] CBC W/PLT COUNT & AUTO [id number] 11:07:00 Test Item Value Reference Range Comments WHITE BLOOD CELL COUNT (BEAKER) (test xdde=115) 6.1 K/ L 4.0-10.0 RED BLOOD CELL COUNT (BEAKER) (test hgzv=896) 3.71 M/ L 4.20-5.80 HEMOGLOBIN (BEAKER) (test jwjr=489) 12.4 GM/DL 13.0-16.8 HEMATOCRIT (BEAKER) (test ketf=233) 36.8 % 40.0-50.0 MEAN CORPUSCULAR VOLUME (BEAKER) (test bsup=350) 99.2 fL 82.0-98.0 MEAN CORPUSCULAR HEMOGLOBIN (BEAKER) (test 33.4 pg 27.0-33.0 ybqt=635) MEAN CORPUSCULAR HEMOGLOBIN CONC (BEAKER) (test 33.6 GM/DL 32.0-36.0 inqp=995) RED CELL DISTRIBUTION WIDTH (BEAKER) (test 14.0 % 10.3-14.2 yxgt=227) PLATELET COUNT (BEAKER) (test vtko=446) 297 K/CU MM 150-430 MEAN PLATELET VOLUME (BEAKER) (test iphl=713) 6.3 fL 6.5-10.5 NUCLEATED RED BLOOD CELLS (BEAKER) (test 0 /100 WBC 0-0 oydd=635) NEUTROPHILS RELATIVE PERCENT (BEAKER) (test 62 % rjfj=068) LYMPHOCYTES RELATIVE PERCENT (BEAKER) (test 26 % ttku=683) MONOCYTES RELATIVE PERCENT (BEAKER) (test 9 % askn=261) EOSINOPHILS RELATIVE PERCENT (BEAKER) (test 2 % dvov=340) BASOPHILS RELATIVE PERCENT (BEAKER) (test 1 % lauh=509) NEUTROPHILS ABSOLUTE COUNT (BEAKER) (test 3.83 K/ L 1.80-8.00 wtcx=653) LYMPHOCYTES ABSOLUTE COUNT (BEAKER) (test 1.59 K/ L 1.48-4.50 tedy=179) MONOCYTES ABSOLUTE COUNT (BEAKER) (test 0.55 K/ L 0.00-1.30 djzt=272) EOSINOPHILS ABSOLUTE COUNT (BEAKER) (test 0.13 K/ L 0.00-0.50 krrf=674) BASOPHILS ABSOLUTE COUNT (BEAKER) (test 0.05 K/ L 0.00-0.20 tnvj=359) 0.00BASIC METABOLIC [id number] 10:53:00 Test Item Value Reference Range Comments SODIUM (BEAKER) (test 143 meq/L 136-145 iqgu=083) POTASSIUM (BEAKER) (test 4.5 meq/L 3.5-5.1 gtow=547) CHLORIDE (BEAKER) (test 104 meq/L 98-107 igzc=574) CO2 (BEAKER) (test 24 meq/L 22-29 qdwc=891) BLOOD UREA NITROGEN 49 mg/dL 7-21 (BEAKER) (test eljh=373) CREATININE (BEAKER) (test 9.39 mg/dL 0.57-1.25 sdvm=799) GLUCOSE RANDOM (BEAKER) 78 mg/dL 70-105 (test qiqr=987) CALCIUM (BEAKER) (test 9.1 mg/dL 8.4-10.2 wotc=419) EGFR (BEAKER) (test 6 mL/min/1.73 sq m ESTIMATED GFR IS NOT gume=1538) ACCURATE CREATININE CLEARANCE IN PREDICTING GLOMERULAR FILTRATION RATE. ESTIMATED GFR IS NOT APPLICABLE FOR DIALYSIS PATIENTS. [id number] 10:44:00 Test Item Value Reference Range Comments PROTIME (BEAKER) (test rdtd=645) 13.0 seconds 11.7-14.7 INR (BEAKER) (test avuu=865) 1.0 <=5.9 PARTIAL THROMBOPLASTIN TIME (BEAKER) (test 29.2 seconds 22.5-36.0 unnh=732) RECOMMENDED COUMADIN/WARFARIN INR THERAPY RANGESSTANDARD DOSE: 2.0 - 3.0 Includes: PROPHYLAXIS forvenous thrombosis, systemic embolization; TREATMENT for venous thrombosis and/or pulmonary embolus.HIGH RISK: Target INR is 2.5-3.5 for patients with mechanical heart valves.FLOW PRA CLASS I AND [id number] 11: 51:00 Test Item Value Reference Range Comments DATE OF SERUM (BEAKER) (test fkyg=8020) [id number] SERUM # ([place]) (test fmro=4290) [id number] FLOW PRA CLASS I AND II (test ryes=6490) See Scanned Report HLA [id number] 11:51:00 Test Item Value Reference Range Comments HLA RESULT (BEAKER) (test hsmy=0347) See Scanned Report HLA-A AG1 (BEAKER) (test yprg=8025) HLA-A AG2 (BEAKER) (test evhp=7767) HLA-B AG1 (BEAKER) (test ohku=3747) HLA-B AG2 (BEAKER) (test nlxf=8100) HLA-C AG1 (BEAKER) (test pdce=4231) HLA-C AG2 (BEAKER) (test szyd=6239) HLA-DR AG1 (BEAKER) (test nqpb=6400) HLA-DR AG2 (BEAKER) (test aefu=8628) HLA-DQ AG1 (BEAKER) (test kkey=3892) HLA-DQ AG2 (BEAKER) (test selu=1225) HLA-DRW (BEAKER) (test mfts=7441) EBV-VCA ANTIBODY, [id number] 14:35:00 Test Item Value Reference Range Comments ROLDAN-THOMAS VCA IGM (BEAKER) (test apei=373) Negative VARICELLA ZOSTER ANTIBODY, [id number] 12:16:00 Test Item Value Reference Range Comments VARICELLA ZOSTER IGG (AL) (BEAKER) (test cczx=7245) 1.6 Al VARICELLA ZOSTER RESULT INTERPRETATIONS: <=0.8 Al Nonreactive: Presumed non-immune to VZV 0.9-1.0 Al Equivocal >=1.1 Al Reactive: Presumed immune to VZVCYTOMEGALOVIRUS ANTIBODY, [id number] 12:11:00 Test Item Value Reference Range Comments CYTOMEGALOVIRUS IGG ANTIBODY (BEAKER) (test Positive bfrd=116) CYTOMEGALOVIRUS ANTIBODY, [id number] 12:11:00 Test Item Value Reference Range Comments CYTOMEGALOVIRUS IGM ANTIBODY (BEAKER) (test Negative ouhy=467) EBV-VCA ANTIBODY, [id number] 12:11:00 Test Item Value Reference Range Comments ROLDAN-THOMAS VCA IGG (BEAKER) (test tfjh=158) Positive [id number] 11:41:00 Test Item Value Reference Range Comments RPR SCREEN (BEAKER) (test iuzt=010) Nonreactive Nonreactive HEPATITIS B SURFACE [id number] 14:42:00 Test Item Value Reference Range Comments HEPATITIS B SURFACE ANTIBODY (BEAKER) (test 9.6 mIU/mL <8.0 islk=170) HEPATITIS B SURFACE [id number] 14:12:00 Test Item Value Reference Range Comments HEPATITIS B SURFACE ANTIGEN (2) (BEAKER) (test Nonreactive Nonreactive yane=6221) HEPATITIS B CORE ANTIBODY, [id number] 14:12:00 Test Item Value Reference Range Comments HEPATITIS B CORE IGM ANTIBODY (BEAKER) (test Nonreactive Nonreactive cudk=092) HEPATITIS C [id number] 14:12:00 Test Item Value Reference Range Comments HEPATITIS C ANTIBODY (BEAKER) (test tnir=837) Nonreactive Nonreactive HIV-1 ANTIGEN WITH HIV-1/2 [id number] 14:12:00 Test Item Value Reference Range Comments HIV-1 ANTIGEN WITH HIV 1\T\2 ANTIBODY (2) Nonreactive Nonreactive (BEAKER) (test flzy=2164) [id number] 14:12:00 Test Item Value Reference Range Comments PROSTATE SPECIFIC ANTIGEN (BEAKER) (test yhmr=116) 0.7 ng/mL 0.0-4.0 COMPREHENSIVE METABOLIC [id number] 13:58:00 Test Item Value Reference Range Comments TOTAL PROTEIN (BEAKER) 7.3 gm/dL 6.0-8.3 (test xpgq=189) ALBUMIN (BEAKER) (test 3.9 g/dL 3.5-5.0 luls=5038) ALKALINE PHOSPHATASE 130 U/L 40-150 (BEAKER) (test nscw=512) BILIRUBIN TOTAL (BEAKER) 0.3 mg/dL 0.2-1.2 (test zebx=356) SODIUM (BEAKER) (test 135 meq/L 136-145 rmsn=913) POTASSIUM (BEAKER) (test 4.9 meq/L 3.5-5.1 stqx=924) CHLORIDE (BEAKER) (test 99 meq/L 98-107 meqy=778) CO2 (BEAKER) (test 26 meq/L 22-29 wbrq=297) BLOOD UREA NITROGEN 29 mg/dL 7-21 (BEAKER) (test jlpf=515) CREATININE (BEAKER) (test 7.30 mg/dL 0.57-1.25 pwnv=655) GLUCOSE RANDOM (BEAKER) 176 mg/dL 70-105 (test ghds=723) CALCIUM (BEAKER) (test 9.3 mg/dL 8.4-10.2 otuj=471) AST (SGOT) (BEAKER) (test 18 U/L 5-34 sbnv=637) ALT (SGPT) (BEAKER) (test 16 U/L 6-55 aucw=767) EGFR (BEAKER) (test 8 mL/min/1.73 sq m ESTIMATED GFR IS NOT zzzj=0484) ACCURATE CREATININE CLEARANCE IN PREDICTING GLOMERULAR FILTRATION RATE. ESTIMATED GFR IS NOT APPLICABLE FOR DIALYSIS PATIENTS. PTH, [id number] 13:52:00 Test Item Value Reference Range Comments PARATHYROID HORMONE INTACT (BEAKER) (test 289.5 pg/mL 8.5-72.5 hwbe=575) Effective 04/11/2014: Reference Range ChangeNew: 8.5-72.5 Previous: 15.0- 90.0URIC [id number] 13:52:00 Test Item Value Reference Range Comments URIC ACID (BEAKER) (test rvkx=244) 3.9 mg/dL 2.6-7.2 [id number] 13:52:00 Test Item Value Reference Range Comments PHOSPHORUS (BEAKER) (test evol=011) 3.3 mg/dL 2.3-4.7 LIPID [id number] 13:52:00 Test Item Value Reference Range Comments TRIGLYCERIDES (BEAKER) (test tymx=402) 230 mg/dL CHOLESTEROL (BEAKER) (test wjcc=631) 141 mg/dL HDL CHOLESTEROL (BEAKER) (test qzbe=272) 29 mg/dL LDL CHOLESTEROL CALCULATED (BEAKER) (test 66 mg/dL gmtb=944) Triglyceride Reference Range: Low Risk <150 Borderline 150- 199 High Risk 200-499 Very High Risk >=500Cholesterol Reference Range: Low Risk <200 Borderline 200-239 High Risk > 240HDL Cholesterol Reference Range: Low Risk >=60 High Risk <40LDL Cholesterol Reference Range: Optimal <100 Near Optimal 100-129 Borderline 130-159 High 160-189 Very High >=190GAMMA GLUTAMYL TRANSFERASE (GGT)2016-10-15 13:52:00 Test Item Value Reference Range Comments GAMMA GLUTAMYL TRANSFERASE (BEAKER) (test mnlr=716) 12 U/L 9-64 LACTATE DEHYDROGENASE (LDH)2016-10-15 13:52:00 Test Item Value Reference Range Comments LACTATE DEHYDROGENASE (BEAKER) (test qibm=048) 161 U/L 125-220 HEMOGLOBIN [id number] 13:32:00 Test Item Value Reference Range Comments HEMOGLOBIN A1C (BEAKER) (test eese=107) 5.9 % 4.3-6.1 CBC W/PLT COUNT & AUTO [id number] 13:32:00 Test Item Value Reference Range Comments WHITE BLOOD CELL COUNT (BEAKER) (test yiqq=303) 5.1 K/ L 4.0-10.0 RED BLOOD CELL COUNT (BEAKER) (test khad=883) 3.63 M/ L 4.20-5.80 HEMOGLOBIN (BEAKER) (test akcx=083) 12.3 GM/DL 13.0-16.8 HEMATOCRIT (BEAKER) (test ckqy=609) 37.0 % 40.0-50.0 MEAN CORPUSCULAR VOLUME (BEAKER) (test wmyn=580) 102.0 fL 82.0-98.0 MEAN CORPUSCULAR HEMOGLOBIN (BEAKER) (test 33.8 pg 27.0-33.0 dvcn=113) MEAN CORPUSCULAR HEMOGLOBIN CONC (BEAKER) (test 33.1 GM/DL 32.0-36.0 mosj=849) RED CELL DISTRIBUTION WIDTH (BEAKER) (test 12.7 % 10.3-14.2 kjtm=502) PLATELET COUNT (BEAKER) (test node=184) 303 K/CU MM 150-430 MEAN PLATELET VOLUME (BEAKER) (test cjis=833) 6.1 fL 6.5-10.5 NUCLEATED RED BLOOD CELLS (BEAKER) (test 0 /100 WBC 0-0 icsg=718) NEUTROPHILS RELATIVE PERCENT (BEAKER) (test 61 % dojs=029) LYMPHOCYTES RELATIVE PERCENT (BEAKER) (test 30 % bwli=458) MONOCYTES RELATIVE PERCENT (BEAKER) (test 6 % xdvl=466) EOSINOPHILS RELATIVE PERCENT (BEAKER) (test 3 % fxdz=073) BASOPHILS RELATIVE PERCENT (BEAKER) (test 1 % floj=521) NEUTROPHILS ABSOLUTE COUNT (BEAKER) (test 3.13 K/ L 1.80-8.00 liqf=643) LYMPHOCYTES ABSOLUTE COUNT (BEAKER) (test 1.51 K/ L 1.48-4.50 vjpw=972) MONOCYTES ABSOLUTE COUNT (BEAKER) (test 0.31 K/ L 0.00-1.30 txie=245) EOSINOPHILS ABSOLUTE COUNT (BEAKER) (test 0.13 K/ L 0.00-0.50 vdat=515) BASOPHILS ABSOLUTE COUNT (BEAKER) (test 0.03 K/ L 0.00-0.20 uozu=964) [id number] 13:18:00 Test Item Value Reference Range Comments PROTIME (BEAKER) (test ilih=505) 13.5 seconds 11.7-14.7 INR (BEAKER) (test nbzu=746) 1.0 <=5.9 PARTIAL THROMBOPLASTIN TIME (BEAKER) (test 30.5 seconds 22.5-36.0 jzws=019) RECOMMENDED COUMADIN/WARFARIN INR THERAPY RANGESSTANDARD DOSE: 2.0 - 3.0 Includes: PROPHYLAXIS forvenous thrombosis, systemic embolization; TREATMENT for venous thrombosis and/or pulmonary embolus.HIGH RISK: Target INR is 2.5-3.5 for patients with mechanical heart valves.
--- NOTE | 2017-09-30 14:06 | ER ---
Nurse's Notes [facility] Name: Shekhar Gambino Age: 52 yrs Sex: Male : 1965 Arrival Date: 09/30/2017 Time: 11:16 Bed 12 Private MD: Diagnosis: Fracture of unspecified phalanx of right index finger Presentation: 09/30 11:38 Presenting complaint: Patient states: injury to R fourth finger 2 months ago, today at dialysis it wiggled sideways and I can hear something popping in it. Transition of care: patient was not received from another setting of care. Onset of symptoms was July 2017. Initial Sepsis Screen: Does the patient meet any 2 criteria? No. Patient's initial sepsis screen is negative. Does the patient have a suspected source of infection? No. Patient's initial sepsis screen is negative. Care prior to arrival: None. 11:38 Method Of Arrival: Ambulatory 11:38 Acuity: AZAEL 4 Triage Assessment: 11:52 General: Appears in no apparent distress. uncomfortable, Behavior is calm, cooperative, appropriate for age. Pain: Denies pain. Musculoskeletal: Capillary refill < 3 seconds, in bilateral fingers. toes. 13:18 Injury Description: Deformity sustained to dorsal aspect of middle phalanx of right ed1 ring finger is displaced, was sustained "a few weeks". Historical: - Allergies: 11:41 No Known Allergies; - Home Meds: 11:41 gabapentin Oral once daily [Active]; Novolin 70/30 [place] Sub-Q daily [Active]; Omeprazole Oral once daily [Active]; renvilla binder [Active]; Claritin 10 mg Oral tab 1 tab once daily [Active]; brelinta [Active]; atorvastatin oral oral [Active]; carvedilol oral oral [Active]; aspirin 81 mg Oral chew 1 tab once daily [Active]; Amitriptyline Oral [Active]; - Immunization history:: Adult Immunizations up to date, Flu vaccine is not up to date. - Social history:: Smoking status: Patient/guardian denies using tobacco. Screenin:18 Abuse screen: Denies threats or abuse. Denies injuries from another. Nutritional ed1 screening: No deficits noted. Tuberculosis screening: No symptoms or risk factors identified. Fall Risk None identified. Assessment: 13:18 General: Appears in no apparent distress. Behavior is calm, cooperative. Pain: Denies ed1 pain. Neuro: Level of Consciousness is awake, alert, obeys commands, Oriented to person, place, time, situation. Cardiovascular: Denies chest pain, Heart tones S1 S2 present. Respiratory: Airway is patent Respiratory effort is even, unlabored, Respiratory pattern is regular, symmetrical, Breath sounds are clear bilaterally. GI: No signs and/or symptoms were reported involving the gastrointestinal system. : No signs and/or symptoms were reported regarding the genitourinary system. EENT: No signs and/or symptoms were reported regarding the EENT system. Derm: Skin is pink, warm \\T\\ dry. Musculoskeletal: Circulation, motion, and sensation intact. Capillary refill < 3 seconds, in bilateral fingers. Range of motion: intact in all extremities, Swelling absent Reports popping in right 4th finger. 13:18 Reassessment: I agree with assessment completed by BETSY Ghosh . aa5 13:30 Reassessment: In room x-rays completed. ed1 14:02 Reassessment: Patient appears in no apparent distress at this time. No changes from ed1 previously documented assessment. Patient and/or family updated on plan of care and expected duration. Pain level reassessed. Patient is alert, oriented x 3, equal unlabored respirations, skin warm/dry/pink. Vital Signs: 11:52 BP 102 / 65; Pulse 80; Resp 16; Temp 97.5; Pulse Ox 97% on R/A; Weight 101.15 kg; ch Height 5 ft. 5 in. (165.10 cm); Pain 5/10; 13:18 BP 107 / 68; Pulse 72; Resp 18; Pulse Ox 98% on R/A; Pain 0/10; ed1 11:52 Body Mass Index 37.11 (101.15 kg, 165.10 cm) ED Course: 11:16 Patient arrived in ED. sb2 11:39 Triage completed. 11:52 Arm band placed on left wrist. Patient placed in waiting room. 12:19 Jose Daniel Yadav NP is PHCP. pm1 12:19 Bereket Palma MD is Attending Physician. pm1 12:20 Nati Ty, LUCIA is Primary Nurse. aa5 13:18 Primary Nurse role handed off by Nati Ty, LUCIA ed1 13:18 Davina Schofield LVN is Primary Nurse. ed1 13:18 Patient has correct armband on for positive identification. Bed in low position. Call ed1 light in reach. 13:30 Awaiting radiology results. ed1 13:45 X-ray completed. Portable x-ray completed in exam room. Patient tolerated procedure la2 well. 13:48 Hand Right 3 View XRAY In Process Unspecified. EDMS 14:02 No provider procedures requiring assistance completed. Patient did not have IV access ed1 during this emergency room visit. Aluminum finger splint applied to ring finger. 14:03 Awaiting disposition. ed1 14:05 Salomón Bustamante MD is Referral Physician. pm1 Administered Medications: No medications were administered Outcome: 14:05 Discharge ordered by MD. pm1 14:11 Discharged to home ambulatory. ed1 14:11 Condition: good 14:11 Discharge instructions given to patient, Instructed on discharge instructions, follow up and referral plans. medication usage, splint care Demonstrated understanding of instructions, follow-up care, medications, splint care, Prescriptions given X 1. 14:12 Patient left the ED. ed1 Signatures: Dispatcher [employer] EDMS Kassi Vargas RN RN Nati Ty, LUCIA RN aa5 Davina Schofield LVN LVN ed1 Jose Daniel Yadav NP [employer] LATHE TENDER pm1 Nina Quintero la2 Nancy Shin sb2
--- NOTE | 2017-09-30 14:06 | EDPHYS ---
Physician Documentation [facility] Name: Shekhar Gambino Age: 52 yrs Sex: Male : 1965 Arrival Date: 09/30/2017 Time: 11:16 Bed 12 Private MD: ED Physician Bereket Palma HPI: 09/30 13:55 This 52 yrs old Male presents to ER via Ambulatory with complaints of Finger pm1 Injury. 13:57 The patient or guardian reports pain, swelling. The complaints affect the dorsal aspect pm1 of middle phalanx of right ring finger. Context: The problem was sustained at home, resulted from a crush injury. Onset: The symptoms/episode began/occurred 2 month(s) ago. Modifying factors: The symptoms are alleviated by nothing, the symptoms are aggravated by movement. Associated signs and symptoms: Pertinent negatives: cyanosis distally, decreased sensation distally, numbness distally, tingling distally. Severity of symptoms: in the emergency department the symptoms are actually worse. Improved from two months ago then worse today when he decided to test his finger to see if he could apply weight to it. The finger bent to the side. Historical: - Allergies: 11:41 No Known Allergies; ch - Home Meds: 11:41 gabapentin Oral once daily [Active]; Novolin 70/30 [place] Sub-Q daily [Active]; ch Omeprazole Oral once daily [Active]; renvilla binder [Active]; Claritin 10 mg Oral tab 1 tab once daily [Active]; brelinta [Active]; atorvastatin oral oral [Active]; carvedilol oral oral [Active]; aspirin 81 mg Oral chew 1 tab once daily [Active]; Amitriptyline Oral [Active]; - Immunization history:: Adult Immunizations up to date, Flu vaccine is not up to date. - Social history:: Smoking status: Patient/guardian denies using tobacco. ROS: 13:57 Constitutional: Negative for fever, chills, and weight loss, Cardiovascular: Negative pm1 for chest pain, palpitations, and edema, Respiratory: Negative for shortness of breath, cough, wheezing, and pleuritic chest pain, Abdomen/GI: Negative for abdominal pain, nausea, vomiting, diarrhea, and constipation, Back: Negative for injury and pain. 13:57 Skin: Negative for injury, rash, and discoloration, Neuro: Negative for headache, weakness, numbness, tingling, and seizure. 13:57 MS/extremity: Positive for pain, of the dorsal aspect of middle phalanx of right ring finger. Exam: 13:57 Constitutional: This is a well developed, well nourished patient who is awake, alert, pm1 and in no acute distress. Head/Face: Normocephalic, atraumatic. Chest/axilla: Normal chest wall appearance and motion. Nontender with no deformity. No lesions are appreciated. Cardiovascular: Regular rate and rhythm with a normal S1 and S2. No gallops, murmurs, or rubs. No pulse deficits. Respiratory: Lungs have equal breath sounds bilaterally, clear to auscultation and percussion. No rales, rhonchi or wheezes noted. No increased work of breathing, no retractions or nasal flaring. Abdomen/GI: Soft, non-tender, with normal bowel sounds. No distension or tympany. No guarding or rebound. No evidence of tenderness throughout. Back: No spinal tenderness. No costovertebral tenderness. Full range of motion. Skin: Warm, dry with normal turgor. Normal color with no rashes, no lesions, and no evidence of cellulitis. 13:57 Musculoskeletal/extremity: Extremities: grossly normal except: noted in the dorsal aspect of middle phalanx of right ring finger: pain, swelling. Vital Signs: 11:52 BP 102 / 65; Pulse 80; Resp 16; Temp 97.5; Pulse Ox 97% on R/A; Weight 101.15 kg; ch Height 5 ft. 5 in. (165.10 cm); Pain 5/10; 13:18 BP 107 / 68; Pulse 72; Resp 18; Pulse Ox 98% on R/A; Pain 0/10; ed1 11:52 Body Mass Index 37.11 (101.15 kg, 165.10 cm) MDM: 12:19 Patient medically screened. pm1 14:03 Data reviewed: vital signs. Data interpreted: Pulse oximetry: on room air is 98 %. pm1 Interpretation: normal. Counseling: I had a detailed discussion with the patient and/or guardian regarding: the historical points, exam findings, and any diagnostic results supporting the discharge/admit diagnosis, radiology results, the need for outpatient follow up, for definitive care, a hand specialist, to return to the emergency department if symptoms worsen or persist or if there are any questions or concerns that arise at home. 09/30 11:45 Order name: Hand Right 3 View XRAY kb 09/30 13:12 Order name: Splint - Finger: Post xray; Complete Time: 14:11 pm1 Administered Medications: No medications were administered Disposition: 22:22 Co-signature as Attending Physician, Bereket Palma MD I agree with the assessment and kdr plan of care. Disposition: 09/30/17 14:05 Discharged to Home. Impression: Fracture of unspecified phalanx of right index finger. - Condition is Stable. - Discharge Instructions: Finger Fracture. - Prescriptions for Tylenol- Codeine #3 300-30 mg Oral Tablet - take 2 tablets by ORAL route every 6 hours As needed; 20 tablet. - Medication Reconciliation Form, Thank You Letter, Prescription Opioid Use form. - Follow up: Emergency Department; When: As needed; Reason: Worsening of condition. Follow up: Salomón Bustamante MD; When: 2 - 3 days; Reason: Recheck today's complaints, Continuance of care, Re-evaluation by your physician. - Problem is new. - Symptoms have improved. Signatures: Dispatcher [employer] EDMS Kassi Vargas RN RN Bereket Gracia MD MD [facility] Davina Schofield LVN HEALTH PROGRAM DIRECTOR ed1 Jose Daniel Yadav, KERRY [employer] IN PLAC[employer] OPERATOR pm1 Corrections: (The following items were deleted from the chart) 14:05 14:05 09/30/2017 14:05 Discharged to Home. Impression: Fracture of unspecified phalanx pm1 of right index finger. Condition is Stable. Forms are Medication Reconciliation Form, Thank You Letter, Antibiotic Education, Prescription Opioid Use. pm1 14:12 14:05 09/30/2017 14:05 Discharged to Home. Impression: Fracture of unspecified phalanx ed1 of right index finger. Condition is Stable. Forms are Medication Reconciliation Form, Thank You Letter, Antibiotic Education, Prescription Opioid Use. Follow up: Emergency Department; When: As needed; Reason: Worsening of condition. Follow up: Salomón Bustamante; When: 2 - 3 days; Reason: Recheck today's complaints, Continuance of care, Re-evaluation by your physician. Problem is new. Symptoms have improved. pm1
[2017-09-30 14:16] VITALS: TEMP 97.5
[2017-09-30 14:17] VITALS: BP 107/68; O2SAT 98
--- NOTE | 2017-09-30 14:19 | RAD REPORT ---
EXAM DESCRIPTION: RAD - Hand Right 3 View - 09/30/2017 1:48 pm CLINICAL HISTORY: History of right hand injury 2 months earlier COMPARISON: None. FINDINGS: Comminuted fracture is seen at the head of the middle phalanx fourth digit. No fracture of the base of the distal phalanx. Callus formation is present but the fracture is incompletely healed. Fracture involves the articular surface of the middle phalanx. Pathologic process is not suspected. The poor healing may be secondary to the underlying diabetes. Elsewhere in the hand there is no acute or destructive process seen. Arterial calcifications are pres ent. No foreign body. IMPRESSION: Incompletely healed comminuted fracture fourth middle phalanx.
== END 2017-09-30 14:12 | disposition home or self-care (01) ==
LOC: ER 11:13
DX: S62.600A Fracture of unspecified phalanx of right index finger, initial encounter for closed fracture (principal); X58.XXXA Exposure to other specified factors, initial encounter; Y93.9 Activity, unspecified; Y92.9 Unspecified place or not applicable; Z79.82 Long term (current) use of aspirin; Z79.4 Long term (current) use of insulin
CPT/HCPCS: 99283

== ENCOUNTER 2020-04-02 12:12 | Emergency (ER) | payer OTHER ==
--- OUTSIDE RECORDS SUMMARY | 2020-04-02 12:35 | XMS REPORT | Clinical Summary ---
:1965 Author Organization [facility] Address [address] [place] [address] Care Team Providers Name Role Phone Sarita Lemos MD Primary Care Provider Allergies No Known Allergies Medications Medication Sig Dispensed Refills Start Date End Date Status calcium acetate Take 667 mg by mouth 0 Active (PHOSLO) 667 mg 3 (three) times capsule daily with meals. omeprazole Take 20 mg by mouth 0 Active (PRILOSEC) 20 MG daily. capsule melatonin 3 mg Tab Take 1 mg by mouth 0 Active tablet nightly. midodrine Take 10 mg by mouth 0 Active (PROAMATINE) 10 MG every Thursday, tablet Thursday, Thursday 30 minutes before dialysis IN ADDITION TO REGULAR 5 MG DOSE. amitriptyline Take 50 mg by mouth 0 Active (ELAVIL) 10 MG nightly . tablet ticagrelor Take 1 tablet (90 mg 180 tablet 0 12/03/2016 Active (BRILINTA) 90 mg total) by mouth 2 Tab tablet (two) times daily. atorvastatin Take 40 mg by mouth 0 Active (LIPITOR) 40 MG daily. tablet carvedilol (COREG) Take 3.125 mg by 0 Active 3.125 MG tablet mouth 2 (two) times daily with breakfast and dinner. midodrine Take 5 mg by mouth 3 0 Active (PROAMATINE) 5 MG (three) times daily. tablet aspirin 81 MG EC Take 81 mg by mouth 0 Active tablet daily. gabapentin Take 1 capsule (100 0 11/14/2018 Active (NEURONTIN) 100 MG mg total) by mouth capsule daily. insulin aspart Inject 0.14 mLs (14 0 11/13/2018 Active protamine-insulin Units total) aspart (NOVOLOG MIX subcutaneously 2 70/30) 100 unit/mL (two) times daily (70-30) Soln with breakfast and injection dinner. Additional Information Patient taking differently: 52 Units Subcutaneous 2 times daily with breakfast and dinner, Reason: Other, Reported on 12/16/2018 11:22 AM epoetin mey-epbx (RETACRIT) Inject 1 mL (10,000 Units total) 0 11/15/2018 Active 10,000 unit/mL Soln injection subcutaneously 3 (three) times a week at bedtime. acetaminophen-codeine Take 1 tablet by mouth every 4 0 Active (TYLENOL #4) 300-60 mg per (four) hours as needed for Pain. tablet Active Problems Problem Noted Date Coronary artery disease 11/08/2018 S/P CABG x [address] Quesada on 11/08/18 11/08/2018 Respiratory insufficiency 11/08/2018 Hyperglycemia 11/08/2018 Acute blood loss anemia 11/08/2018 SE (obstructive sleep apnea) 11/04/2018 CVD (cerebrovascular disease) 11/04/2018 CAD (coronary artery disease) 11/03/2018 Anemia in ESRD (end-stage renal disease) 11/03/2018 Abnormal stress test 11/02/2018 Adenomatous polyp of colon 06/02/2018 Coronary artery disease involving [place] coronary tian ry of [place] heart 12/03/2016 without angina pectoris Last Assessment & Plan: Controlled at this time. Continue medica tions as prescribed. Pre-transplant evaluation for ESRD (end stage renal di sease) 12/02/2016 Last Assessment & Plan: He will need a vascular evaluation prior to kidney transplant. Pre-transplant evaluation for chronic kidney disease 0 10/15/2016 ESRD (end stage renal disease) 10/15/2016 Type 2 diabetes mellitus with renal complication 10/15 Last Assessment & Plan: Continue follow up with primary care bharat singh regarding blood glucose management. Diabetic retinopathy associated with type 2 diabetes m ellitus 10/15/2016 Diabetic neuropathy associated with type 2 diabetes me llitus 10/15/2016 Poor dentition 10/15/2016 Secondary hyperparathyroidism of renal origin 10/16/19 17 Anemia in chronic kidney disease(285.21) 10/15/2016 GERD (gastroesophageal reflux disease) 10/15/2016 Obesity (BMI 35.0-39.9 without comorbidity) 10/15/2016 Last Assessment & Plan: He was encouraged to monitor his intake and exercise as tolerated. Encounters Date Type Specialty Care Team Description 11/15/2019 Telephone Transplant Christy Ogden Follow-up 10/07/2019 Telephone Transplant Melissa Adams RN Follow-up 10/06/2019 Telephone Transplant Jayne Ruvalcaba Y 09/12/2019 Telephone Transplant Melissa Adams RN Follow-up 08/31/2019 Documentation Transplant Tasha Borjas after 04/02/2019 Family History Medical History Relation Name Comments Diabetes Father Heart disease Father Hypertension Father Relation Name Status Comments Father Social History Tobacco Use Types Packs/Day Years Used Date Never Smoker Smokeless Tobacco: Never Used Alcohol Use Drinks/Week oz/Week Comments No Sex Assigned at Date Recorded Not on file Last Filed Vital Signs Not on file Plan of Treatment Health Maintenance Due Date Last Done Comments PNEUMOCOCCAL VACCINE 0-64 YRS (1 of 1 1973 - PPSV23) DIABETIC EYE EXAM 1977 DIABETIC FOOT EXAM 1977 URINE MICROALBUMIN 1977 MEDICARE ANNUAL WELLNESS (YEAR 2 or 09/23/2010 FIRST YEAR if no IPPE) HEMOGLOBIN A1C 05/05/2019 11/03/2018, 10/15/2016 COLON CANCER SCREENING ANNUAL FOBT 06/02/2019 06/02/2018, 0 01/15/2017, 01/15/2017 LIPID PANEL 10/16/2019 10/15/2016 INFLUENZA VACCINE (#1) 2020 Implants Implanted Type Area Doper Operator Device Shelf Model / Identifier Expiration Serial / Date Lot Imp Sternal Zipfix W/Ndl Strl .001.05s - [id number] IMPLAN TS N/A: SYNTHES:SYNTHES 02/21/2022001.05S / Implanted: Qty: 1 on 11/08/2018 by Umu Cronin MD at [facility] Chest [facility] / [id number] Description:IMP STERNAL ZIPFIX W/NDL STR L 501.001.05S Promus Premier Stents-Coronary Coronary [place] 8 [id number] / Implanted: Qty: 1 on 12/02/2016 by Pantera Leyva MD at [facility] / [id number] Results Not on fileafter 04/02/2019 Advance Directives For more information, please contact: [phone] Code Status Date Activated Date Inactivated Comments Full Code 11/08/2018 2:38 PM 11/13/2018 7:42 PM This code status was determined by: Patient Full Code 11/07/2018 6:03 PM 11/08/2018 2:37 PM This code status was determined by: Patient Full Code 11/02/2018 8:46 AM 11/07/2018 6:02 PM This code status was determined by: Patient Full Code 12/02/2016 8:56 AM 12/03/2016 4:31 PM This code status was determined by: Patient
--- OUTSIDE RECORDS SUMMARY | 2020-04-02 12:40 | XMS REPORT | Continuity of Care Document ---
:1965 Author Organization [facility] t Address [address] [place] [address] Care Team Providers Name Role Phone Sarita Lemos MD Primary Care Physician Donavon Ogden Attending Clinician Unavailable Angie MYERS Attending Clinician Unavailable Ronald Ruvalcaba Attending Clinician Unavailable Indio Attending Clinician Unavailable Ruel GUARDADO Attending Clinician RADHA Attending Clinician Unavailable ERIC HARDING Attending Clinician Unavailable RADHA Admitting Clinician Unavailable Payers Payer Name Policy Type Policy Effective Date Expiration Date Sour ce Number MEDICAREMEDICARE A [id number] 2009 DINAH Og [id number] 2010-P 00:00:00 - [facility] Problems Condition Condition Condition Status Onset Resolution Last Treating Co mments Source Name Details Category Date Date Treatment Clinician Date Coronary Coronary Disease Active DINAH landa artery artery 11-08 [facility] - disease disease 00:00: Medical 00 Center S/P CABG x S/P CABG x Disease Active [facility] 4 by 4 by 11-08 [facility] - Dipak on Dipak on 00:00: Medi yann 11/08/18 11/08/18 00 Center Respirator Respirator Disease Active [facility] y y 6-17 [facility] - insufficie insufficie 00:00: Me dical ncy ncy 00 Center Hyperglyce Hyperglyce Disease Active [facility] lise lise 6-17 [facility] - 00:[facility]: Medical 00 Center Acute Acute Disease Active [facility] blood loss blood loss 6-17 [facility] - anemia anemia 00:00: Medical 00 Center SE SE Disease Active [facility] (obstructi (obstructi 6-13 [facility] - ve sleep ve sleep 00:00: Medica l apnea) apnea) 00 Center CVD CVD Disease Active [facility] (cerebrova (cerebrova 6-13 [facility] - scular scular 00:00: Medical disease) disease) 00 Center CAD CAD Disease Active [facility] (coronary (coronary 6-12 [facility] - artery artery 00:00: Medical disease) disease) 00 Center 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 artery of artery of Continue [place] medicatio heart heart ns as without without prescribe angina angina d. pectoris pectoris Pre-transp Pre-transp Disease Active Last [facility] lant lant 7-11 [facility] - evaluation evaluation 00:00: t & Plan: Medical for ESRD for ESRD 00 He will Cente r (end stage (end stage need a renal renal vascular disease) disease) evaluatio n prior to kidney transplan t. Pre-transp Pre-transp Disease Active [facility] lant lant 5-24 [facility] - evaluation evaluation 00:00: Me dical for for 00 Center chronic chronic kidney kidney disease disease ESRD (end ESRD (end Disease Active [facility] stage stage 5-24 [facility] - renal renal 00:00: Medical disease) disease) 00 Center Type 2 Type 2 Disease Active [facility] diabetes diabetes 5-24 Assessmen [facility] - mellitus mellitus 00:00: t & Plan: Med ical with renal with renal 00 Continue Center complicati complicati follow up on on with primary care physician regarding blood glucose managemen t. Diabetic Diabetic Disease [facility] retinopath retinopath 5-24 [facility] - y y 00:00: Medical associated associated 00 Ce nter with type with type 2 diabetes 2 diabetes mellitus mellitus Diabetic Diabetic Disease [facility] neuropathy neuropathy 5-24 [facility] - associated associated 00:00: Me dical with type with type 00 Cent er 2 diabetes 2 diabetes mellitus mellitus Poor Poor Disease Active 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 chronic chronic -24 [facility] - kidney kidney 00:00: Medical disease(28 disease(28 00 Ce nter 5.21) 5.21) GERD GERD Disease Active [facility] (gastroeso (gastroeso -24 [facility] kes - phageal phageal 00:00: Medical reflux reflux 00 Center disease) disease) Obesity Obesity Disease Active [facility] (BMI (BMI -24 [facility] 35.0-39.9 35.0-39.9 00:00: t & Plan: M edical without without 00 He was Center comorbidit comorbidit encourage y) y) d to monitor his intake and exercise as tolerated . Allergies, Adverse Reactions, Alerts This patient has no known allergies or adverse reactions. Family History Family Member Diagnosis Comments Start Date Stop Date Source Natural father Diabetes [facility] Natural father Heart disease [facility] Natural father Hypertension [facility] Social History Social Habit Start Date Stop Date Quantity Comments Source Sex Assigned At [facility] Tobacco use and 2019-03-31 2019-03-31 Never used [facility] - exposure 00:00:00 00:00:00 Medical Center Alcohol intake 2019-03-31 2019-03-[address] [facility] [facility] - 00:00:00 00:00:00 non-drinker of Medical Ce nter alcohol (finding) Smoking Status Start Date Stop Date Source Never smoker [facility] Medications Ordered Filled Start Stop Current Ordering Indication Dosage Frequency Signature Comments Components Source Medication Medication Date Date Medication? Clinician (SIG) Name Name acetaminoph Yes 1{tbl} Take [address] en-codeine 7-25 tablet by [facility] - (TYLENOL 11:25: mouth Medical #4) 300-60 39 every 4 Center mg per (four) tablet hours as needed for Pain. calcium Yes 667mg Take 667 [facility] acetate 7-25 mg by [facility] - (PHOSLO) 11:22: mouth 3 Medica l 667 mg 05 (three) Center capsule times daily with meals. omeprazole Yes 20mg QD Take [address] (PRILOSEC) 7-25 by mouth [facility] - 20 MG 11:22: daily. Medical capsule 05 [place] melatonin 3 Yes 1mg QD Take [address] mg Tab 7-25 by mouth [facility] - tablet 11:22: nightly. [address] midodrine Yes 10mg Take [address] (PROAMATINE 7-25 by mouth [facility] - ) 10 MG 11:22: every Medical tablet 05 Thursday, Center Thursday, Thursday 30 minutes before dialysis IN ADDITION TO REGULAR 5 MG DOSE. amitriptyli Yes 50mg QD Take [address] ne (ELAVIL) 7-25 by mouth [facility] - 10 MG 11:22: nightly . Medical tablet [address] [place] [address] atorvastati Yes 40mg QD Take [address] n (LIPITOR) 7-25 by mouth [facility] - 40 MG 11:22: daily. Medical tablet [address] [place] [address] carvedilol Yes 3.125mg Take 3.[address] (COREG) 7-25 mg by [facility] - 3.125 MG 11:22: mouth 2 Medica l tablet 05 (two) Center times daily with breakfast and dinner. midodrine Yes 5mg Q.[id number] Take [address] [address] (PROAMATINE 7-25 [id number] by mouth 3 [facility] - ) 5 MG 11:22: 3D (three) Medical tablet 05 times Center daily. aspirin 81 Yes 81mg QD Take [address] MG EC 7-25 by mouth [facility] - tablet 11:22: daily. [address] epoetin 2018- Yes [id number] Inject [address] mey-epbx 6-24 mL (10,000 [facility] - (RETACRIT) 00:00: Units Medica l 10,000 00 total) Center unit/mL subcutaneo Soln usly 3 injection (three) times a week at bedtime. gabapentin Yes 100mg QD Take [address] (NEURONTIN) 6-23 capsule [facility] - 100 MG 00:00: (100 mg Medical capsule 00 total) by Center mouth daily. insulin Yes 14U Inject [facility] aspart 6-22 0.14 mLs [facility] - protamine-i 00:00: (14 Units M edical nsulin 00 total) [place] aspart subcutaneo (NOVOLOG usly 2 MIX 70/30) (two) 100 unit/mL times (70-30) daily with Soln breakfast injection and dinner. ticagrelor Yes 90mg Q.5D Take 1 [facility] (BRILINTA) 7-12 tablet (90 [facility] - 90 mg Tab 00:00: mg total) Med ical tablet 00 by mouth 2 Center (two) times daily. Procedures This patient has no known procedures. Plan of Care Planned Activity Planned Date Details Comments Source Future Scheduled 2020-01-24 INFLUENZA VACCINE (#1) [facility] - Test 00:00:00 [code = INFLUENZA Medical Ce nter VACCINE (#1)] Future Scheduled 2019-10-[address] [facility] - Test 00:00:00 (procedure) [code = [facility] 71152719] Future Scheduled 2019-06-[address] [facility] - Test 00:00:00 malignant neoplasm of Medica l Center colon (procedure) [code = 341068230] Future Scheduled 2019-05-[address] Kailee kes - Test 00:00:00 [facility] (procedure) [code = 28826595] Future Scheduled 2010-09-[address] [facility] - Test 00:00:00 WELLNESS (YEAR 2 or Medical Center FIRST YEAR if no IPPE) [code = MEDICARE ANNUAL WELLNESS (YEAR 2 or FIRST YEAR if no IPPE)] Future Scheduled [address] DI[address]IC EYE EXAM [facility] - Test 00:00:00 [code = DIABETIC EYE Medical Center EXAM] Future Scheduled [address] [facility] - Test 00:00:00 examination Medical Center (regime/therapy) [code = 384910597] Future Scheduled 1977 Urine [facility] - Test 00:00:00 protein (procedure) Medical Center [code = 652825668] Future Scheduled [address] [facility] [facility] - Test 00:00:00 0-64 YRS (1 of 1 - Medical C enter PPSV23) [code = PNEUMOCOCCAL VACCINE 0-64 YRS (1 of 1 - PPSV23)] Encounters Start End Encounter Admission Attending Care Care Encounter Source Date/Time Date/Time Type Type Clinicians Facility Department ID 2019-07-28 2019-07-28 Office HEBER Lipscomb [id number] 11:24:51 16:32:38 Visit [facility] [id number] Y [id number] 2018-12-14 2018-12-14 HEBER Robert [id number] 11:15:58 13:39:25 Visit [facility] [id number] Y [id number] Results Test Description Test Time Test Comments Results Result Sour e Comments [facility], 2019-03-31 FINAL REPORT PATIENT ID: MONICA HERRON, 16:38:00 [id number] PROCEDURE: SPECT MYOCARDIAL PERFUSION SPECT IMAGING (Rest/Stress)CPT CODE: 91906 INDICATION: Evaluation in advance of renal transplant CARDIOVASCULAR PROFILE:CAD History: Known coronary artery disease, coronary stent 2017, aortocoronary bypass, November 08, 2018Symptoms: NoneRisk Factors: Diabetes, hypertension, obesity, hyperlipidemia, stroke, family history of early onset coronary artery diseaseBMI: 40.2Medications: Aspirin, midodrine, Elavil, Coreg, Brilinta, atorvastatin STRESS PROTOCOL:Pharmacologic stress was achieved with a 10-second intravenous infusion of regadenoson 0.4 mg. The radiopharmaceutical was administered 30 seconds after the start of the regadenoson infusion. IMAGING PROTOCOL:10.9 mCi of Tc-99m sestamibi was injected intravenously at rest, and gated SPECT images were obtained. Then, 29.9 mCi of Tc-99m sestamibi was injected intravenously at peak stress, and gated SPECT images were obtained. Image quality is good. REST FINDINGS:HR: 85/minBP: 131/73 mmHgPrelim. EKG: Normal sinus rhythm, first-degree AV block.Perfusion: Decreased radiotracer uptake in the anterior apical and apical segments is present.LV Volume: Normal.RV Volume: Normal. STRESS FINDINGS:HR: 88/min (52% of MPHR)BP: 83/46 mmHgPrelim. EKG: No ischemic changes.Symptoms: None (treatment not required).Perfusion: Decreased radiotracer uptake in the anterior apical and apical segments is present.Wall Motion: Normal (LVEF 59%).LV Volume: Not significantly changed from rest. IMPRESSION:1. Abnormal study.2. Abnormal myocardial perfusion. There is a small sized size, moderate severity, fixed perfusion abnormality in the anterior apical and apical LV. This is most consistent with imaging artifact due to breast attenuation3. Normal LVEF with stress.4. Normal extracardiac tracer distribution.5. The prior study dated 30 Sep 2018 reported moderate severity perfusion defect of the mid to apical anterior segments. Compared to the prior study the perfusion defect now appears fixed and involves the apex. Signed: Jose Daniel Grajeda MDReport Verified Date/Time: 03/31/2019 16:38:15 Reading Location: [address] Reading Room -GLUCOSE METER 2018-11-13 11:51:00 Test Item Value Reference Range Interpretation Comme nts POC-GLUCOSE METER (BEAKER) (test 136 mg/dL 70-110 H [facility] [address] [facility] 7703 0 POCT-GLUCOSE [id number] 08:41:00 Test Item Value Reference Range Interpretation Comments POC-GLUCOSE METER 157 mg/dL 70-110 H TESTED AT [facility] 67[address] (BEAKER) (test code = BRENDA Pri[place] [facility] [place] 1538) [address] POCT-GLUCOSE [id number] 06:47:00 Test Item Value Reference Range Interpretation Comments POC-GLUCOSE METER 130 mg/dL 70-110 H TESTED AT [facility] 67[address] (BEAKER) (test code = BRENDA Pri[place] 1538) [address] BASIC METABOLIC [id number] 05:20:00 Test Item Value Reference Range Interpretation Comments SODIUM (BEAKER) 138 meq/L 136-145 (test code = 381) POTASSIUM (BEAKER) 3.7 meq/L 3.5-5.1 (test code = 379) CHLORIDE (BEAKER) 99 meq/L 98-107 (test code = 382) CO2 (BEAKER) (test 29 meq/L 22-29 code = 355) BLOOD UREA NITROGEN 25 mg/dL 7-21 H (BEAKER) (test code = 354) CREATININE (BEAKER) 4.57 mg/dL 0.57-1.25 H (test code = 358) GLUCOSE RANDOM 57 mg/dL 70-105 L (BEAKER) (test code = 652) CALCIUM (BEAKER) 8.8 mg/dL 8.4-10.2 (test code = 697) EGFR (BEAKER) (test 14 mL/min/1.73 ESTIMA PERCY GFR IS code = 1092) sq m NOT ACCURATE CREATININE CLEARANCE IN PREDICTING GLOMERULAR FILTRATION RATE . ESTIMATED GFR I S NOT APPLICABLE FOR DIALYSIS PATIEN TS. CBC W/PLT COUNT & AUTO [id number] 04:42:00 Test Item Value Reference Range Interpretation Comments WHITE BLOOD CELL COUNT (BEAKER) 8.2 K/ L 3.5-10.5 (test code = 775) RED BLOOD CELL COUNT (BEAKER) 2.94 M/ L 4.63-6.08 L (test code = 761) HEMOGLOBIN (BEAKER) (test code = 8.8 GM/DL 13.7-17.5 L 410) HEMATOCRIT (BEAKER) (test code = 28.9 % 40.1-51.0 L 411) MEAN CORPUSCULAR VOLUME (BEAKER) 98.3 fL 79.0-92.2 H (test code = 753) MEAN CORPUSCULAR HEMOGLOBIN 29.9 pg 25.7-32.2 (BEAKER) (test code = 751) MEAN CORPUSCULAR HEMOGLOBIN CONC 30.4 GM/DL 32.3-36.5 L (BEAKER) (test code = 752) RED CELL DISTRIBUTION WIDTH 14.6 % 11.6-14.4 H (BEAKER) (test code = 412) PLATELET COUNT (BEAKER) (test 206 K/CU MM 150-450 code = 756) MEAN PLATELET VOLUME (BEAKER) 9.9 fL 9.4-12.4 (test code = 754) NUCLEATED RED BLOOD CELLS 0 /100 WBC 0-0 (BEAKER) (test code = 413) NEUTROPHILS RELATIVE PERCENT 77 % (BEAKER) (test code = 429) LYMPHOCYTES RELATIVE PERCENT 8 % (BEAKER) (test code = 430) MONOCYTES RELATIVE PERCENT 12 % (BEAKER) (test code = 431) EOSINOPHILS RELATIVE PERCENT 2 % (BEAKER) (test code = 432) BASOPHILS RELATIVE PERCENT 0 % (BEAKER) (test code = 437) NEUTROPHILS ABSOLUTE COUNT 6.23 K/ L 1.78-5.38 H (BEAKER) (test code = 670) LYMPHOCYTES ABSOLUTE COUNT 0.68 K/ L 1.32-3.57 L (BEAKER) (test code = 414) MONOCYTES ABSOLUTE COUNT (BEAKER) 0.99 K/ L 0.30-0.82 H (test code = 415) EOSINOPHILS ABSOLUTE COUNT 0.18 K/ L 0.04-0.54 (BEAKER) (test code = 416) BASOPHILS ABSOLUTE COUNT (BEAKER) 0.03 K/ L 0.01-0.08 (test code = 417) IMMATURE GRANULOCYTES-RELATIVE 1 % 0-1 PERCENT (BEAKER) (test code = 2801) POCT-GLUCOSE [id number] 19:39:00 Test Item Value Reference Range Interpretation Comments POC-GLUCOSE METER 88 mg/dL 70-110 TESTED AT [facility] [address] (BEAKER) (test code = [place] [address] 1538) BASIC METABOLIC [id number] 15:34:00 Test Item Value Reference Range Interpretation Comments SODIUM (BEAKER) 133 meq/L 136-145 L (test code = 381) POTASSIUM (BEAKER) 4.0 meq/L 3.5-5.1 (test code = 379) CHLORIDE (BEAKER) 96 meq/L 98-107 L (test code = 382) CO2 (BEAKER) (test 27 meq/L 22-29 code = 355) BLOOD UREA NITROGEN 41 mg/dL 7-21 H (BEAKER) (test code = 354) CREATININE (BEAKER) 6.25 mg/dL 0.57-1.25 H (test code = 358) GLUCOSE RANDOM 144 mg/dL 70-105 H (BEAKER) (test code = 652) CALCIUM (BEAKER) 8.8 mg/dL 8.4-10.2 (test code = 697) EGFR (BEAKER) (test 10 mL/min/1.73 ESTIMA PERCY GFR IS code = 1092) sq m NOT ACCURATE CREATININE CLEARANCE IN PREDICTING GLOMERULAR FILTRATION RATE . ESTIMATED GFR I S NOT APPLICABLE FOR DIALYSIS PATIEN TS. CBC W/PLT COUNT & AUTO [id number] 15:20:00 Test Item Value Reference Range Interpretation Comments WHITE BLOOD CELL COUNT (BEAKER) 6.4 K/ L 3.5-10.5 (test code = 775) RED BLOOD CELL COUNT (BEAKER) 2.80 M/ L 4.63-6.08 L (test code = 761) HEMOGLOBIN (BEAKER) (test code = 8.4 GM/DL 13.7-17.5 L 410) HEMATOCRIT (BEAKER) (test code = 27.0 % 40.1-51.0 L 411) MEAN CORPUSCULAR VOLUME (BEAKER) 96.4 fL 79.0-92.2 H (test code = 753) MEAN CORPUSCULAR HEMOGLOBIN 30.0 pg 25.7-32.2 (BEAKER) (test code = 751) MEAN CORPUSCULAR HEMOGLOBIN CONC 31.1 GM/DL 32.3-36.5 L (BEAKER) (test code = 752) RED CELL DISTRIBUTION WIDTH 14.8 % 11.6-14.4 H (BEAKER) (test code = 412) PLATELET COUNT (BEAKER) (test 158 K/CU MM 150-450 code = 756) MEAN PLATELET VOLUME (BEAKER) 10.2 fL 9.4-12.4 (test code = 754) NUCLEATED RED BLOOD CELLS 0 /100 WBC 0-0 (BEAKER) (test code = 413) NEUTROPHILS RELATIVE PERCENT 77 % (BEAKER) (test code = 429) LYMPHOCYTES RELATIVE PERCENT 14 % (BEAKER) (test code = 430) MONOCYTES RELATIVE PERCENT 6 % (BEAKER) (test code = 431) EOSINOPHILS RELATIVE PERCENT 3 % (BEAKER) (test code = 432) BASOPHILS RELATIVE PERCENT 1 % (BEAKER) (test code = 437) NEUTROPHILS ABSOLUTE COUNT 4.94 K/ L 1.78-5.38 (BEAKER) (test code = 670) LYMPHOCYTES ABSOLUTE COUNT 0.88 K/ L 1.32-3.57 L (BEAKER) (test code = 414) MONOCYTES ABSOLUTE COUNT (BEAKER) 0.36 K/ L 0.30-0.82 (test code = 415) EOSINOPHILS ABSOLUTE COUNT 0.18 K/ L 0.04-0.54 (BEAKER) (test code = 416) BASOPHILS ABSOLUTE COUNT (BEAKER) 0.03 K/ L 0.01-0.08 (test code = 417) IMMATURE GRANULOCYTES-RELATIVE 1 % 0-1 PERCENT (BEAKER) (test code = 2801) POCT-GLUCOSE [id number] 12:47:00 Test Item Value Reference Range Interpretation Comments POC-GLUCOSE METER 140 mg/dL 70-110 H TESTED AT [place] [address] ([facility]) ([facility] = [facility] 1538) [address] POCT-GLUCOSE [id number] 08:21:00 Test Item Value Reference Range Interpretation Comments POC-GLUCOSE METER 107 mg/dL 70-110 TESTED AT [place] [address] ([facility]) (test code = BRENDA Prieto [facility] 1538) [address] POCT-GLUCOSE [id number] 22:25:00 Test Item Value Reference Range Interpretation Comments POC-GLUCOSE METER 97 mg/dL 70-110 TESTED AT [place] [address] ([facility]) (test code = [facility] [place] [facility] [address]38) POCT-GLUCOSE [id number] 18:02:00 Test Item Value Reference Range Interpretation Comments POC-GLUCOSE METER 264 mg/dL 70-110 H TESTED AT [place] [address] ([facility]) (test code = BRENDA Prieto [facility] 1538) [address] EEG AWAKE AND [id number] 12:26:00Reason for exam:->EncephalopathyDATE OF TEST: 11-11-2018 DATE OF REPORT: 11-11-2018 EEG: BT [id number] Start time: 9:31AM Stop time: 9:54AM ICD-10: R41.82 CPT Code: 54689 HISTORY: 53 year old male with CAD and renal disease, who presents with encephalopathy and intermittent myoclonus. MEDICATIONS: no AEDs or sedatives TECHNICAL SUMMARY:This is a digital video EEG recorded with 32 input channels reviewed with bipolar and referential montages using the modified combinatorial system nomenclature. DESCRIPTION OF RECORD: The background issymmetric and reactive. During the maximally awake state, there is no clearly sustained posterior dominant rhythm. The background consists of low amplitude polymorphic theta and occasional admixed delta activity. Drowsiness is characterized by increased frontocentral slow wave activity. Stage 2 sleep structures are not seen. Events: none HV: Hyperventilation was not performed. PHOTIC STIMULATION: Flash stimulation was performed. There was no photic driving. No abnormal responses elicited. IMPRESSION: Abnormal Awake and Drowsy EEG 1. Mild to moderate diffuse slowing CLINICAL CORRELATION: Thepresence of diffuse background slowing indicates a mild to moderate degree of diffuse cerebral dysfunction. There were no epileptiform abnormalities or electrographic seizures recorded. [facility] M.D. Neurophysiology Attending POCT-GLUCOSE [id number] 10:29:00 Test Item Value Reference Range Interpretation Comments POC-GLUCOSE METER 164 mg/dL 70-110 H TESTED AT [facility] 6720 (BEAKER) (test code = BR[place] 1538) [address] BASIC METABOLIC [id number] 05:28:00 Test Item Value Reference Range Interpretation Comments SODIUM (BEAKER) 137 meq/L 136-145 (test code = 381) POTASSIUM (BEAKER) 4.1 meq/L 3.5-5.1 (test code = 379) CHLORIDE (BEAKER) 98 meq/L 98-107 (test code = 382) CO2 (BEAKER) (test 27 meq/L 22-29 code = 355) BLOOD UREA NITROGEN 22 mg/dL 7-21 H (BEAKER) (test code = 354) CREATININE (BEAKER) 4.52 mg/dL 0.57-1.25 H (test code = 358) GLUCOSE RANDOM 166 mg/dL 70-105 H (BEAKER) (test code = 652) CALCIUM (BEAKER) 8.9 mg/dL 8.4-10.2 (test code = 697) EGFR (BEAKER) (test 14 mL/min/1.73 ESTIMA PERCY GFR IS code = 1092) sq m NOT ACCURATE CREATININE CLEARANCE IN PREDICTING GLOMERULAR FILTRATION RATE . ESTIMATED GFR I S NOT APPLICABLE FOR DIALYSIS PATIEN TS. CBC W/PLT COUNT & AUTO [id number] 04:59:00 Test Item Value Reference Range Interpretation Comments WHITE BLOOD CELL COUNT (BEAKER) 9.9 K/ L 3.5-10.5 (test code = 775) RED BLOOD CELL COUNT (BEAKER) 3.21 M/ L 4.63-6.08 L (test code = 761) HEMOGLOBIN (BEAKER) (test code = 9.5 GM/DL 13.7-17.5 L 410) HEMATOCRIT (BEAKER) (test code = 31.5 % 40.1-51.0 L 411) MEAN CORPUSCULAR VOLUME (BEAKER) 98.1 fL 79.0-92.2 H (test code = 753) MEAN CORPUSCULAR HEMOGLOBIN 29.6 pg 25.7-32.2 (BEAKER) (test code = 751) MEAN CORPUSCULAR HEMOGLOBIN CONC 30.2 GM/DL 32.3-36.5 L (BEAKER) (test code = 752) RED CELL DISTRIBUTION WIDTH 15.7 % 11.6-14.4 H (BEAKER) (test code = 412) PLATELET COUNT (BEAKER) (test 121 K/CU MM 150-450 L code = 756) MEAN PLATELET VOLUME (BEAKER) 10.1 fL 9.4-12.4 (test code = 754) NUCLEATED RED BLOOD CELLS 0 /100 WBC 0-0 (BEAKER) (test code = 413) NEUTROPHILS RELATIVE PERCENT 81 % (BEAKER) (test code = 429) LYMPHOCYTES RELATIVE PERCENT 8 % (BEAKER) (test code = 430) MONOCYTES RELATIVE PERCENT 9 % (BEAKER) (test code = 431) EOSINOPHILS RELATIVE PERCENT 1 % (BEAKER) (test code = 432) BASOPHILS RELATIVE PERCENT 1 % (BEAKER) (test code = 437) NEUTROPHILS ABSOLUTE COUNT 8.00 K/ L 1.78-5.38 H (BEAKER) (test code = 670) LYMPHOCYTES ABSOLUTE COUNT 0.78 K/ L 1.32-3.57 L (BEAKER) (test code = 414) MONOCYTES ABSOLUTE COUNT (BEAKER) 0.86 K/ L 0.30-0.82 H (test code = 415) EOSINOPHILS ABSOLUTE COUNT 0.12 K/ L 0.04-0.54 (BEAKER) (test code = 416) BASOPHILS ABSOLUTE COUNT (BEAKER) 0.05 K/ L 0.01-0.08 (test code = 417) IMMATURE GRANULOCYTES-RELATIVE 1 % 0-1 PERCENT (BEAKER) (test code = 2801) POCT-GLUCOSE [id number] 21:43:00 Test Item Value Reference Range Interpretation Comments POC-GLUCOSE METER 158 mg/dL 70-110 H TESTED AT [facility] ([facility]) (test code = [facility] Conner [facility] 1538) [address] POCT-GLUCOSE [id number] 20:10:00 Test Item Value Reference Range Interpretation Comments POC-GLUCOSE METER 132 mg/dL 70-110 H TESTED AT [facility] 67[facility] ([facility]) (test code = [facility] 1538) [address] BASIC METABOLIC [id number] 17:58:00 Test Item Value Reference Range Interpretation Comments SODIUM (BEAKER) 135 meq/L 136-145 L (test code = 381) POTASSIUM (BEAKER) 4.6 meq/L 3.5-5.1 (test code = 379) CHLORIDE (BEAKER) 98 meq/L 98-107 (test code = 382) CO2 (BEAKER) (test 22 meq/L 22-29 code = 355) BLOOD UREA NITROGEN 32 mg/dL 7-21 H (BEAKER) (test code = 354) CREATININE (BEAKER) 5.68 mg/dL 0.57-1.25 H (test code = 358) GLUCOSE RANDOM 164 mg/dL 70-105 H (BEAKER) (test code = 652) CALCIUM (BEAKER) 9.0 mg/dL 8.4-10.2 (test code = 697) EGFR (BEAKER) (test 11 mL/min/1.73 ESTIMA PERCY GFR IS code = 1092) sq m NOT ACCURATE CREATININE CLEARANCE IN PREDICTING GLOMERULAR FILTRATION RATE . ESTIMATED GFR I S NOT APPLICABLE FOR DIALYSIS PATIEN TS. CBC W/PLT COUNT & AUTO [id number] 17:00:00 Test Item Value Reference Range Interpretation Comments WHITE BLOOD CELL COUNT (BEAKER) 11.3 K/ L 3.5-10.5 H (test code = 775) RED BLOOD CELL COUNT (BEAKER) 3.02 M/ L 4.63-6.08 L (test code = 761) HEMOGLOBIN (BEAKER) (test code = 8.9 GM/DL 13.7-17.5 L 410) HEMATOCRIT (BEAKER) (test code = 29.2 % 40.1-51.0 L 411) MEAN CORPUSCULAR VOLUME (BEAKER) 96.7 fL 79.0-92.2 H (test code = 753) MEAN CORPUSCULAR HEMOGLOBIN 29.5 pg 25.7-32.2 (BEAKER) (test code = 751) MEAN CORPUSCULAR HEMOGLOBIN CONC 30.5 GM/DL 32.3-36.5 L (BEAKER) (test code = 752) RED CELL DISTRIBUTION WIDTH 15.9 % 11.6-14.4 H (BEAKER) (test code = 412) PLATELET COUNT (BEAKER) (test 105 K/CU MM 150-450 L code = 756) MEAN PLATELET VOLUME (BEAKER) 9.9 fL 9.4-12.4 (test code = 754) NUCLEATED RED BLOOD CELLS 0 /100 WBC 0-0 (BEAKER) (test code = 413) NEUTROPHILS RELATIVE PERCENT 82 % (BEAKER) (test code = 429) LYMPHOCYTES RELATIVE PERCENT 8 % (BEAKER) (test code = 430) MONOCYTES RELATIVE PERCENT 8 % (BEAKER) (test code = 431) EOSINOPHILS RELATIVE PERCENT 1 % (BEAKER) (test code = 432) BASOPHILS RELATIVE PERCENT 0 % (BEAKER) (test code = 437) NEUTROPHILS ABSOLUTE COUNT 9.31 K/ L 1.78-5.38 H (BEAKER) (test code = 670) LYMPHOCYTES ABSOLUTE COUNT 0.89 K/ L 1.32-3.57 L (BEAKER) (test code = 414) MONOCYTES ABSOLUTE COUNT (BEAKER) 0.88 K/ L 0.30-0.82 H (test code = 415) EOSINOPHILS ABSOLUTE COUNT 0.15 K/ L 0.04-0.54 (BEAKER) (test code = 416) BASOPHILS ABSOLUTE COUNT (BEAKER) 0.03 K/ L 0.01-0.08 (test code = 417) IMMATURE GRANULOCYTES-RELATIVE 0 % 0-1 PERCENT (BEAKER) (test code = 2801) CT, BRAIN, WITHOUT [id number] 14:50:00Reason for exam:->decreased alertnessWhat is the patient's sedation requirement?->No SedationFINAL REPORT CT Head without contrast CLINICAL HISTORY: Decreased alertness TECHNIQUE: Contiguous axial CT images through the head without contrast. This exam was performed according to the departmental dose optimization program which includes automated exposure control, adjustment of the mA and/or kV according to the patient size, and/or use of an iterative reconstruction technique. COMPARISON: None FINDINGS: There are age-indeterminate lacunar infarcts of the bilateral thalamus. There is no intracranial hemorrhage. There is mild periventricular and subcortical white matter hypodensity which is nonspecific but compatible with chronic microvascular ischemic change. There are atherosclerotic calcifications of the intracranial circulation. There is mild generalized parenchymal volume loss without hydrocephalus, midline shift, or apparent mass effect. There are no extra-axialfluid collections. The skull is intact. The visualized paranasal sinuses are well-aerated. IMPRESSION: Age indeterminate lacunar infarcts of the bilateral thalamus. No hemorrhage. If clinically warranted, an MRI of the brain could be performed for further evaluation if there are no contraindications. Signed: Doug Solitario MDReport Verified Date/Time: 11/10/2018 14:50:39 Reading Location: [address] Neuro Reading Room BLOOD GAS, [id number] 13:34:00 Test Item Value Reference Range Interpretation Comments PH VENOUS (BEAKER) (test code = 7.42 7.32-7.42 701) PCO2 VENOUS (BEAKER) (test code = 41 mmHg 41-51 755) PO2 VENOUS (BEAKER) (test code = 157 mmHg 25-40 H 702) O2 SATURATION VENOUS (BEAKER) 99.1 % 40.0-70.0 H (test code = 703) HCO3 VENOUS (BEAKER) (test code = 26 mmol/L 21-29 705) BASE EXCESS VENOUS (BEAKER) (test 1.9 mmol/L -2.0-3.0 code = 704) PATIENT TEMPERATURE (BEAKER) (test 37.0 C code = 1818) POCT-GLUCOSE [id number] 09:04:00 Test Item Value Reference Range Interpretation Comments POC-GLUCOSE METER 108 mg/dL 70-110 TESTED AT [place] [address] ([facility]) (test code = [facility] 1538) [address] POCT-GLUCOSE [id number] 03:53:00 Test Item Value Reference Range Interpretation Comments POC-GLUCOSE METER 114 mg/dL 70-110 H TESTED AT [place] [address] ([facility]) (test code = [facility] 1538) [address] POCT-GLUCOSE [id number] 20:13:00 Test Item Value Reference Range Interpretation Comments POC-GLUCOSE METER 246 mg/dL 70-110 H TESTED AT [place] [address] ([facility]) (test code = [facility] 1538) [address] POCT-GLUCOSE [id number] 20:06:00 Test Item Value Reference Range Interpretation Comments POC-GLUCOSE METER 198 mg/dL 70-110 H TESTED AT [place] [address] ([facility]) (test code = [facility] 1538) [address] [id number] 16:20:00 Test Item Value Reference Range Interpretation Comments POTASSIUM (BEAKER) (test code = 4.1 meq/L 3.5-5.1 379) Call Nephrology for > 5.2BLOOD GAS, [id number] 16:07:00 Test Item Value Reference Range Interpretation Comments PH ARTERIAL (BEAKER) (test code = 7.44 7.35-7.45 383) PCO2 ARTERIAL (BEAKER) (test code 43 mmHg 35-45 = 384) PO2 ARTERIAL (BEAKER) (test code = 85 mmHg 80-90 385) O2 SATURATION ARTERIAL (BEAKER) 96.9 % 96.0-97.0 (test code = 386) HCO3 ARTERIAL (BEAKER) (test code 29 mmol/L 21-29 = 388) BASE EXCESS ARTERIAL (BEAKER) 4.2 mmol/L -2.0-3.0 H (test code = 387) PATIENT TEMPERATURE (BEAKER) (test 36.3 C code = 1818) FIO2 (BEAKER) (test code = 1819) 32.0 % POCT-GLUCOSE [id number] 15:58:00 Test Item Value Reference Range Interpretation Comments POC-GLUCOSE METER 182 mg/dL 70-110 H TESTED AT [place] [address] (BEAKER) (test code = BRENDA Prieto [facility] 1538) [address] POCT-GLUCOSE [id number] 15:58:00 Test Item Value Reference Range Interpretation Comments POC-GLUCOSE METER 124 mg/dL 70-110 H TESTED AT [place] [address] ([facility]) (test code = [facility] Conner [facility] 1538) [address] [id number] 12:51:00 Test Item Value Reference Range Interpretation Comments POTASSIUM (BEAKER) (test code = 3.4 meq/L 3.5-5.1 L 379) Call Nephrology for > 5.2BLOOD GAS, [id number] 12:39:00 Test Item Value Reference Range Interpretation Comments PH ARTERIAL (BEAKER) (test code = 7.43 7.35-7.45 383) PCO2 ARTERIAL (BEAKER) (test code 46 mmHg 35-45 H = 384) PO2 ARTERIAL (BEAKER) (test code = 99 mmHg 80-90 H 385) O2 SATURATION ARTERIAL (BEAKER) 97.7 % 96.0-97.0 H (test code = 386) HCO3 ARTERIAL (BEAKER) (test code 30 mmol/L 21-29 H = 388) BASE EXCESS ARTERIAL (BEAKER) 4.6 mmol/L -2.0-3.0 H (test code = 387) PATIENT TEMPERATURE (BEAKER) (test 36.7 C code = 1818) FIO2 (BEAKER) (test code = 1819) 36.0 % [id number] 10:39:00 Test Item Value Reference Range Interpretation Comments FERRITIN (BEAKER) (test code = 1987 ng/mL 5-275 H 361) POCT-GLUCOSE [id number] 10:38:00 Test Item Value Reference Range Interpretation Comments POC-GLUCOSE METER 116 mg/dL 70-110 H TESTED AT [place] [address] (BEAKER) (test code = [facility] 1538) [address] IRON, TIBC, % SAT. (WITHOUT FERRITIN)[id number] 10:10:00 Test Item Value Reference Range Interpretation Comments IRON (BEAKER) (test code = 547) 33.0 ug/dL 40.0-160.0 L TOTAL IRON BINDING CAPACITY 174 ug/dL 250-450 L (BEAKER) (test code = 769) IRON % SATURATION (2) (BEAKER) 19 % 20-55 L (test code = 2590) [id number] 09:58:00 Test Item Value Reference Range Interpretation Comments POTASSIUM (BEAKER) (test code = 4.9 meq/L 3.5-5.1 379) Call Nephrology for > [id number] 08:15:00 Test Item Value Reference Range Interpretation Comments POTASSIUM (BEAKER) (test code = 5.4 meq/L 3.5-5.1 H 379) Call Nephrology for > 5.2BLOOD GAS, [id number] 07:57:00 Test Item Value Reference Range Interpretation Comments PH ARTERIAL (BEAKER) (test code = 7.37 7.35-7.45 383) PCO2 ARTERIAL (BEAKER) (test code 46 mmHg 35-45 H = 384) PO2 ARTERIAL (BEAKER) (test code = 99 mmHg 80-90 H 385) O2 SATURATION ARTERIAL (BEAKER) 97.5 % 96.0-97.0 H (test code = 386) HCO3 ARTERIAL (BEAKER) (test code 26 mmol/L 21-29 = 388) BASE EXCESS ARTERIAL (BEAKER) 0.4 mmol/L -2.0-3.0 (test code = 387) PATIENT TEMPERATURE (BEAKER) (test 36.2 C code = 1818) FIO2 (BEAKER) (test code = 1819) 40.0 % RAD, CHEST, 1 VIEW, NON [id number] 07:53:00while patient is intubated or has chest tubes.Reason for exam:->Status post CV SurgeryShould thisbe performed at the bedside?->YesFINAL REPORT AP view of the chest dated 11/09/2018 COMPARISON: 11/08/2018 CLINICAL INFORMATION: Status post CV Surgery Comment: Heart is normal in size. Pulmonary vasculature is u nremarkable. Subsegmental atelectasis is seen in both lower lobes. The rest of the lungs are clear. No pulmonary infiltrate or pleural effusion is present. Endotracheal tube has been removed. Left IJ central venous catheter, mediastinal tube, and left chest tube remain place. Signed: Prince Betts MDReport Verified Date/Time: 11/09/2018 07:53:31 Reading Location: [facility] Radiology Reading Room POCT-GLUCOSE [id number] 07:10:00 Test Item Value Reference Range Interpretation Comments POC-GLUCOSE METER 118 mg/dL 70-110 H TESTED AT [place] [address] ([facility]) (test code = BRENDA Prieto [place] 1538) [address] POCT-GLUCOSE [id number] 06:27:00 Test Item Value Reference Range Interpretation Comments POC-GLUCOSE METER 115 mg/dL 70-110 H TESTED AT [place] [address] ([facility]) (test code = BRENDA [place] 1538) [address] [id number] 06:20:00 Test Item Value Reference Range Interpretation Comments ACTIVATED CLOTTING TIME 109 sec TEST ED AT [place] [address] ([facility]) (test code = BRENDA Prieto [place] 441) [address] [id number] 06:20:00 Test Item Value Reference Range Interpretation Comments ACTIVATED CLOTTING TIME 417 sec TEST ED AT [place] [address] ([facility]) (test code = BRENDA Prieto [place] 441) [address] [id number] 06:20:00 Test Item Value Reference Range Interpretation Comments ACTIVATED CLOTTING TIME 461 sec TEST ED AT [place] [address] ([facility]) (test code = BRENDA R [place] 441) [address] [id number] 06:20:00 Test Item Value Reference Range Interpretation Comments ACTIVATED CLOTTING TIME 516 sec TEST ED AT [place] [address] ([facility]) (test code = JAKENE R [place] 441) [address] [id number] 06:19:00 Test Item Value Reference Range Interpretation Comments ACTIVATED CLOTTING TIME 494 sec TEST ED AT [place] [address] ([facility]) (test code = JAKENE R [place] 441) [address] [id number] 06:19:00 Test Item Value Reference Range Interpretation Comments ACTIVATED CLOTTING TIME 378 sec TEST ED AT [place] [address] ([facility]) (test code = BERTNE R [place] 441) [address] LACTIC ACID, [id number] 06:14:00 Test Item Value Reference Range Interpretation Comments LACTATE BLOOD 0.9 mmol/L 0.5-2.2 Specimen sligh tly ARTERIAL (2) (BEAKER) hemoly zed (test code = 2874) [id number] 06:12:00 Test Item Value Reference Range Interpretation Comments POTASSIUM (BEAKER) (test code = 5.5 meq/L 3.5-5.1 H 379) Call Nephrology for > 5.2OXYGEN SATURATION, [id number] 05:54:00 Test Item Value Reference Range Interpretation Comments O2 SATURATION (MEASURED) (BEAKER) 91.7 % (test code = 1455) BLOOD GAS, [id number] 05:54:00 Test Item Value Reference Range Interpretation Comments PH ARTERIAL (BEAKER) (test code = 7.35 7.35-7.45 383) PCO2 ARTERIAL (BEAKER) (test code 47 mmHg 35-45 H = 384) PO2 ARTERIAL (BEAKER) (test code 117 mmHg 80-90 H = 385) O2 SATURATION ARTERIAL (BEAKER) 98.1 % 96.0-97.0 H (test code = 386) HCO3 ARTERIAL (BEAKER) (test code 26 mmol/L 21-29 = 388) BASE EXCESS ARTERIAL (BEAKER) -0.2 mmol/L -2.0-3.0 (test code = 387) PATIENT TEMPERATURE (BEAKER) 36.4 C (test code = 1818) FIO2 (BEAKER) (test code = 1819) 50.0 % POCT-GLUCOSE [id number] 05:18:00 Test Item Value Reference Range Interpretation Comments POC-GLUCOSE METER 127 mg/dL 70-110 H TESTED AT [facility] 6720 (BEAKER) (test code = BRENDA Prieto [facility] 1538) [address] POCT-GLUCOSE [id number] 04:30:00 Test Item Value Reference Range Interpretation Comments POC-GLUCOSE METER 191 mg/dL 70-110 H TESTED AT [facility] 6720 (BEAKER) (test code = [facility] Conner [facility] 1538) [address] POCT-GLUCOSE [id number] 04:30:00 Test Item Value Reference Range Interpretation Comments POC-GLUCOSE METER 320 mg/dL 70-110 H Verify wit h Lab ([facility]) (test code = draw/T ESTED AT [facility] 1538) [address] [place] [address] POCT-GLUCOSE [id number] 04:30:00 Test Item Value Reference Range Interpretation Comments POC-GLUCOSE METER 187 mg/dL 70-110 H TESTED AT [facility] 6720 ([facility]) (test code = [facility] 1538) [address] POCT-GLUCOSE [id number] 04:30:00 Test Item Value Reference Range Interpretation Comments POC-GLUCOSE METER 132 mg/dL 70-110 H TESTED AT [facility] 6720 ([facility]) (test code = [facility] 1538) [address] BASIC METABOLIC [id number] 04:27:00 Test Item Value Reference Range Interpretation Comments SODIUM (BEAKER) 141 meq/L 136-145 (test code = 381) POTASSIUM (BEAKER) 5.2 meq/L 3.5-5.1 H (test code = 379) CHLORIDE (BEAKER) 109 meq/L 98-107 H (test code = 382) CO2 (BEAKER) (test 20 meq/L 22-29 L code = 355) BLOOD UREA NITROGEN 41 mg/dL 7-21 H (BEAKER) (test code = 354) CREATININE (BEAKER) 6.58 mg/dL 0.57-1.25 H (test code = 358) GLUCOSE RANDOM 192 mg/dL 70-105 H (BEAKER) (test code = 652) CALCIUM (BEAKER) 9.2 mg/dL 8.4-10.2 (test code = 697) EGFR (BEAKER) (test 9 mL/min/1.73 ESTIMAT ED GFR IS code = 1092) sq m NOT ACCURATE CREATININE CLEARANCE IN PREDICTING GLOMERULAR FILTRATION RATE . ESTIMATED GFR I S NOT APPLICABLE FOR DIALYSIS PATIEN TS. Call Nephrology for > [id number] 04:08:00 Test Item Value Reference Range Interpretation Comments POTASSIUM (BEAKER) (test code = 5.2 meq/L 3.5-5.1 H 379) Call Nephrology for > [id number] 04:08:00 Test Item Value Reference Range Interpretation Comments MAGNESIUM (BEAKER) (test code = 2.1 mg/dL 1.6-2.6 627) Call Nephrology for > [id number] 04:08:00 Test Item Value Reference Range Interpretation Comments PHOSPHORUS (BEAKER) (test code = 4.0 mg/dL 2.3-4.7 604) Call Nephrology for > 5.2CBC W/PLT COUNT & AUTO [id number] 03:51:00 Test Item Value Reference Range Interpretation Comments WHITE BLOOD CELL COUNT (BEAKER) 10.0 K/ L 3.5-10.5 (test code = 775) RED BLOOD CELL COUNT (BEAKER) 3.24 M/ L 4.63-6.08 L (test code = 761) HEMOGLOBIN (BEAKER) (test code = 9.6 GM/DL 13.7-17.5 L 410) HEMATOCRIT (BEAKER) (test code = 31.1 % 40.1-51.0 L 411) MEAN CORPUSCULAR VOLUME (BEAKER) 96.0 fL 79.0-92.2 H (test code = 753) MEAN CORPUSCULAR HEMOGLOBIN 29.6 pg 25.7-32.2 (BEAKER) (test code = 751) MEAN CORPUSCULAR HEMOGLOBIN CONC 30.9 GM/DL 32.3-36.5 L (BEAKER) (test code = 752) RED CELL DISTRIBUTION WIDTH 16.9 % 11.6-14.4 H (BEAKER) (test code = 412) PLATELET COUNT (BEAKER) (test 112 K/CU MM 150-450 L code = 756) MEAN PLATELET VOLUME (BEAKER) 9.2 fL 9.4-12.4 L (test code = 754) NUCLEATED RED BLOOD CELLS 0 /100 WBC 0-0 (BEAKER) (test code = 413) NEUTROPHILS RELATIVE PERCENT 88 % (BEAKER) (test code = 429) LYMPHOCYTES RELATIVE PERCENT 4 % (BEAKER) (test code = 430) MONOCYTES RELATIVE PERCENT 7 % (BEAKER) (test code = 431) EOSINOPHILS RELATIVE PERCENT 0 % (BEAKER) (test code = 432) BASOPHILS RELATIVE PERCENT 0 % (BEAKER) (test code = 437) NEUTROPHILS ABSOLUTE COUNT 8.78 K/ L 1.78-5.38 H (BEAKER) (test code = 670) LYMPHOCYTES ABSOLUTE COUNT 0.36 K/ L 1.32-3.57 L (BEAKER) (test code = 414) MONOCYTES ABSOLUTE COUNT (BEAKER) 0.73 K/ L 0.30-0.82 (test code = 415) EOSINOPHILS ABSOLUTE COUNT 0.01 K/ L 0.04-0.54 L (BEAKER) (test code = 416) BASOPHILS ABSOLUTE COUNT (BEAKER) 0.04 K/ L 0.01-0.08 (test code = 417) IMMATURE GRANULOCYTES-RELATIVE 1 % 0-1 PERCENT (BEAKER) (test code = 2801) BLOOD GAS, [id number] 03:48:00 Test Item Value Reference Range Interpretation Comments PH ARTERIAL (BEAKER) (test code = 7.33 7.35-7.45 L 383) PCO2 ARTERIAL (BEAKER) (test code 46 mmHg 35-45 H = 384) PO2 ARTERIAL (BEAKER) (test code 95 mmHg 80-90 H = 385) O2 SATURATION ARTERIAL (BEAKER) 96.9 % 96.0-97.0 (test code = 386) HCO3 ARTERIAL (BEAKER) (test code 24 mmol/L 21-29 = 388) BASE EXCESS ARTERIAL (BEAKER) -2.1 mmol/L -2.0-3.0 L (test code = 387) PATIENT TEMPERATURE (BEAKER) 36.5 C (test code = 1818) FIO2 (BEAKER) (test code = 1819) 50.0 % CALCIUM, [id number] 03:48:00 Test Item Value Reference Range Interpretation Comments CALCIUM IONIZED (BEAKER) (test 1.23 mmol/L 1.12-1.27 code = 698) PH, BLOOD (BEAKER) (test code = 7.32 1810) [id number] 02:28:00 Test Item Value Reference Range Interpretation Comments POTASSIUM (BEAKER) (test code = 5.9 meq/L 3.5-5.1 H 379) Call Nephrology for > 5.2BLOOD GAS, [id number] 02:07:00 Test Item Value Reference Range Interpretation Comments PH ARTERIAL (BEAKER) (test code = 7.27 7.35-7.45 L 383) PCO2 ARTERIAL (BEAKER) (test code 50 mmHg 35-45 H = 384) PO2 ARTERIAL (BEAKER) (test code 78 mmHg 80-90 L = 385) O2 SATURATION ARTERIAL (BEAKER) 93.8 % 96.0-97.0 L (test code = 386) HCO3 ARTERIAL (BEAKER) (test code 22 mmol/L 21-29 = 388) BASE EXCESS ARTERIAL (BEAKER) -5.0 mmol/L -2.0-3.0 L (test code = 387) PATIENT TEMPERATURE (BEAKER) 36.8 C (test code = 1818) FIO2 (BEAKER) (test code = 1819) 44.0 % POTASSIUM-STAT [id number] 00:09:00 Test Item Value Reference Range Interpretation Comments POTASSIUM (BEAKER) (test code = 5.8 meq/L 3.6-5.5 H 379) BLOOD GAS, [id number] 00:04:00 Test Item Value Reference Range Interpretation Comments PH ARTERIAL (BEAKER) (test code = 7.24 7.35-7.45 L 383) PCO2 ARTERIAL (BEAKER) (test code 51 mmHg 35-45 H = 384) PO2 ARTERIAL (BEAKER) (test code 96 mmHg 80-90 H = 385) O2 SATURATION ARTERIAL (BEAKER) 96.3 % 96.0-97.0 (test code = 386) HCO3 ARTERIAL (BEAKER) (test code 21 mmol/L 21-29 = 388) BASE EXCESS ARTERIAL (BEAKER) -6.3 mmol/L -2.0-3.0 L (test code = 387) PATIENT TEMPERATURE (BEAKER) 36.3 C (test code = 1818) FIO2 (BEAKER) (test code = 1819) 50.0 % GLUCOSE-STAT [id number] 00:04:00 Test Item Value Reference Range Interpretation Comments GLUCOSE RANDOM (BEAKER) (test code 133 mg/dL 70-110 H = 652) HGB/HCT (H&H) - STAT [id number] 00:04:00 Test Item Value Reference Range Interpretation Comments HEMOGLOBIN (BEAKER) (test code = 11.1 g/dL 13.0-16.8 L 410) HEMATOCRIT (BEAKER) (test code = 33.0 % 40.0-50.0 L 411) SODIUM NA-STAT [id number] 00:02:00 Test Item Value Reference Range Interpretation Comments SODIUM (BEAKER) (test code = 381) 136 meq/L 135-148 POCT-GLUCOSE [id number] 00:01:00 Test Item Value Reference Range Interpretation Comments POC-GLUCOSE METER 131 mg/dL 70-110 H TESTED AT [facility] 6720 (BEAKER) (test code = [facility] 1538) [address] POCT-GLUCOSE [id number] 00:01:00 Test Item Value Reference Range Interpretation Comments POC-GLUCOSE METER 117 mg/dL 70-110 H TESTED AT [place] [address] (BEAKER) (test code = [facility] 1538) [address] POCT-GLUCOSE [id number] 00:01:00 Test Item Value Reference Range Interpretation Comments POC-GLUCOSE METER 119 mg/dL 70-110 H TESTED AT [place] [address] (BEAKER) (test code = [facility] 1538) [address] BASIC METABOLIC [id number] 23:15:00 Test Item Value Reference Range Interpretation Comments SODIUM (BEAKER) 138 meq/L 136-145 (test code = 381) POTASSIUM (BEAKER) 5.4 meq/L 3.5-5.1 H (test code = 379) CHLORIDE (BEAKER) 109 meq/L 98-107 H (test code = 382) CO2 (BEAKER) (test 20 meq/L 22-29 L code = 355) BLOOD UREA NITROGEN 40 mg/dL 7-21 H (BEAKER) (test code = 354) CREATININE (BEAKER) 6.29 mg/dL 0.57-1.25 H (test code = 358) GLUCOSE RANDOM 125 mg/dL 70-105 H (BEAKER) (test code = 652) CALCIUM (BEAKER) 8.3 mg/dL 8.4-10.2 L (test code = 697) EGFR (BEAKER) (test 9 mL/min/1.73 ESTIMAT ED GFR IS code = 1092) sq m NOT ACCURATE CREATININE CLEARANCE IN PREDICTING GLOMERULAR FILTRATION RATE . ESTIMATED GFR I S NOT APPLICABLE FOR DIALYSIS PATIEN TS. [id number] 23:14:00 Test Item Value Reference Range Interpretation Comments MAGNESIUM (BEAKER) (test code = 2.1 mg/dL 1.6-2.6 627) LACTIC ACID, [id number] 23:11:00 Test Item Value Reference Range Interpretation Comments LACTATE BLOOD ARTERIAL (2) 1.0 mmol/L 0.5-2.2 (BEAKER) (test code = 2874) BLOOD GAS, [id number] 22:57:00 Test Item Value Reference Range Interpretation Comments PH ARTERIAL (BEAKER) (test code = 7.24 7.35-7.45 L 383) PCO2 ARTERIAL (BEAKER) (test code 53 mmHg 35-45 H = 384) PO2 ARTERIAL (BEAKER) (test code 120 mmHg 80-90 H = 385) O2 SATURATION ARTERIAL (BEAKER) 97.8 % 96.0-97.0 H (test code = 386) HCO3 ARTERIAL (BEAKER) (test code 22 mmol/L 21-29 = 388) BASE EXCESS ARTERIAL (BEAKER) -5.4 mmol/L -2.0-3.0 L (test code = 387) PATIENT TEMPERATURE (BEAKER) 36.6 C (test code = 1818) FIO2 (BEAKER) (test code = 1819) 50.0 % GLUCOSE-STAT [id number] 22:57:00 Test Item Value Reference Range Interpretation Comments GLUCOSE RANDOM (BEAKER) (test code 126 mg/dL 70-110 H = 652) HGB/HCT (H&H) - STAT [id number] 22:57:00 Test Item Value Reference Range Interpretation Comments HEMOGLOBIN (BEAKER) (test code = 11.2 g/dL 13.0-16.8 L 410) HEMATOCRIT (BEAKER) (test code = 33.0 % 40.0-50.0 L 411) SODIUM NA-STAT [id number] 22:54:00 Test Item Value Reference Range Interpretation Comments SODIUM (BEAKER) (test code = 381) 138 meq/L 135-148 POTASSIUM-STAT [id number] 22:54:00 Test Item Value Reference Range Interpretation Comments POTASSIUM (BEAKER) (test code = 5.4 meq/L 3.6-5.5 379) SODIUM NA-STAT [id number] 21:58:00 Test Item Value Reference Range Interpretation Comments SODIUM (BEAKER) (test code = 381) 138 meq/L 135-148 POTASSIUM-STAT [id number] 21:58:00 Test Item Value Reference Range Interpretation Comments POTASSIUM (BEAKER) (test code = 4.6 meq/L 3.6-5.5 379) BLOOD GAS, [id number] 21:58:00 Test Item Value Reference Range Interpretation Comments PH ARTERIAL (BEAKER) (test code = 7.21 7.35-7.45 L 383) PCO2 ARTERIAL (BEAKER) (test code 58 mmHg 35-45 H = 384) PO2 ARTERIAL (BEAKER) (test code 72 mmHg 80-90 L = 385) O2 SATURATION ARTERIAL (BEAKER) 91.2 % 96.0-97.0 L (test code = 386) HCO3 ARTERIAL (BEAKER) (test code 23 mmol/L 21-29 = 388) BASE EXCESS ARTERIAL (BEAKER) -5.7 mmol/L -2.0-3.0 L (test code = 387) PATIENT TEMPERATURE (BEAKER) 36.6 C (test code = 1818) FIO2 (BEAKER) (test code = 1819) 30.0 % GLUCOSE-STAT [id number] 21:58:00 Test Item Value Reference Range Interpretation Comments GLUCOSE RANDOM (BEAKER) (test code 121 mg/dL 70-110 H = 652) HGB/HCT (H&H) - STAT [id number] 21:58:00 Test Item Value Reference Range Interpretation Comments HEMOGLOBIN (BEAKER) (test code = 11.3 g/dL 13.0-16.8 L 410) HEMATOCRIT (BEAKER) (test code = 33.0 % 40.0-50.0 L 411) POCT-GLUCOSE [id number] 21:02:00 Test Item Value Reference Range Interpretation Comments POC-GLUCOSE METER 133 mg/dL 70-110 H TESTED AT [facility] 6720 (BEAKER) (test code = BRENDA Prieto [place]IRE[place] 1538) [address] SODIUM NA-STAT [id number] 20:38:00 Test Item Value Reference Range Interpretation Comments SODIUM (BEAKER) (test code = 381) 136 meq/L 135-148 POTASSIUM-STAT [id number] 20:38:00 Test Item Value Reference Range Interpretation Comments POTASSIUM (BEAKER) (test code = 4.4 meq/L 3.6-5.5 379) BLOOD GAS, [id number] 20:38:00 Test Item Value Reference Range Interpretation Comments PH ARTERIAL (BEAKER) (test code = 7.31 7.35-7.45 L 383) PCO2 ARTERIAL (BEAKER) (test code 44 mmHg 35-45 = 384) PO2 ARTERIAL (BEAKER) (test code 89 mmHg 80-90 = 385) O2 SATURATION ARTERIAL (BEAKER) 96.2 % 96.0-97.0 (test code = 386) HCO3 ARTERIAL (BEAKER) (test code 22 mmol/L 21-29 = 388) BASE EXCESS ARTERIAL (BEAKER) -4.3 mmol/L -2.0-3.0 L (test code = 387) PATIENT TEMPERATURE (BEAKER) 36.6 C (test code = 1818) FIO2 (BEAKER) (test code = 1819) 40.0 % GLUCOSE-STAT [id number] 20:38:00 Test Item Value Reference Range Interpretation Comments GLUCOSE RANDOM (BEAKER) (test code 124 mg/dL 70-110 H = 652) HGB/HCT (H&H) - STAT [id number] 20:38:00 Test Item Value Reference Range Interpretation Comments HEMOGLOBIN (BEAKER) (test code = 10.9 g/dL 13.0-16.8 L 410) HEMATOCRIT (BEAKER) (test code = 32.0 % 40.0-50.0 L 411) POCT-GLUCOSE [id number] 20:17:00 Test Item Value Reference Range Interpretation Comments POC-GLUCOSE METER 139 mg/dL 70-110 H TESTED AT [place] [address] (BEAKER) (test code = [place] 1538) [id number] POCT-GLUCOSE [id number] 20:17:00 Test Item Value Reference Range Interpretation Comments POC-GLUCOSE METER 154 mg/dL 70-110 H TESTED AT [place] [address] (BEAKER) (test code = [place] 1538) [id number] POCT-GLUCOSE [id number] 20:17:00 Test Item Value Reference Range Interpretation Comments POC-GLUCOSE METER 169 mg/dL 70-110 H TESTED AT [place] [address] (BEAKER) (test code = BRENDA Prieto [place] 1538) [id number] 19:51:00 Test Item Value Reference Range Interpretation Comments POTASSIUM (BEAKER) (test code = 4.4 meq/L 3.5-5.1 379) Check Serum Magnesium level 2 hours after IV magnesium replacement.MAGNESIUM 2018-11-08 19:51:00 Test Item Value Reference Range Interpretation Comments MAGNESIUM (BEAKER) (test code = 2.2 mg/dL 1.6-2.6 627) Check Serum Magnesium level 2 hours after IV magnesium replacement.GLUCOSE 2018-11-08 19:51:00 Test Item Value Reference Range Interpretation Comments GLUCOSE RANDOM (BEAKER) (test code 146 mg/dL 70-105 H = 652) Check Serum Magnesium level 2 hours after IV magnesium replacement.BLOOD GAS, [id number] 19:29:00 Test Item Value Reference Range Interpretation Comments PH ARTERIAL (BEAKER) (test code = 7.34 7.35-7.45 L 383) PCO2 ARTERIAL (BEAKER) (test code 41 mmHg 35-45 = 384) PO2 ARTERIAL (BEAKER) (test code 115 mmHg 80-90 H = 385) O2 SATURATION ARTERIAL (BEAKER) 98.1 % 96.0-97.0 H (test code = 386) HCO3 ARTERIAL (BEAKER) (test code 22 mmol/L 21-29 = 388) BASE EXCESS ARTERIAL (BEAKER) -3.9 mmol/L -2.0-3.0 L (test code = 387) PATIENT TEMPERATURE (BEAKER) 36.6 C (test code = 1818) FIO2 (BEAKER) (test code = 1819) 60.0 % GLUCOSE-STAT [id number] 19:29:00 Test Item Value Reference Range Interpretation Comments GLUCOSE RANDOM (BEAKER) (test code 142 mg/dL 70-110 H = 652) HGB/HCT (H&H) - STAT [id number] 19:29:00 Test Item Value Reference Range Interpretation Comments HEMOGLOBIN (BEAKER) (test code = 11.3 g/dL 13.0-16.8 L 410) HEMATOCRIT (BEAKER) (test code = 33.0 % 40.0-50.0 L 411) SODIUM NA-STAT [id number] 19:28:00 Test Item Value Reference Range Interpretation Comments SODIUM (BEAKER) (test code = 381) 138 meq/L 135-148 POTASSIUM-STAT [id number] 19:28:00 Test Item Value Reference Range Interpretation Comments POTASSIUM (BEAKER) (test code = 4.2 meq/L 3.6-5.5 379) BASIC METABOLIC [id number] 16:25:00 Test Item Value Reference Range Interpretation Comments SODIUM (BEAKER) 138 meq/L 136-145 (test code = 381) POTASSIUM (BEAKER) 4.8 meq/L 3.5-5.1 Specimen slightly (test code = 379) hemolyzed CHLORIDE (BEAKER) 109 meq/L 98-107 H (test code = 382) CO2 (BEAKER) (test 18 meq/L 22-29 L code = 355) BLOOD UREA NITROGEN 34 mg/dL 7-21 H (BEAKER) (test code = 354) CREATININE (BEAKER) 5.72 mg/dL 0.57-1.25 H Specimen slightly (test code = 358) hemolyzed GLUCOSE RANDOM 181 mg/dL 70-105 H (BEAKER) (test code = 652) CALCIUM (BEAKER) 8.2 mg/dL 8.4-10.2 L (test code = 697) EGFR (BEAKER) (test 11 mL/min/1.73 ESTIMA PERCY GFR IS code = 1092) sq m NOT ACCURATE CREATININE CLEARANCE IN PREDICTING GLOMERULAR FILTRATION RATE . ESTIMATED GFR I S NOT APPLICABLE FOR DIALYSIS PATIEN TS. [id number] 16:22:00 Test Item Value Reference Range Interpretation Comments MAGNESIUM (BEAKER) 2.3 mg/dL 1.6-2.6 Specimen slightly (test code = 627) hemolyzed [id number] 16:22:00 Test Item Value Reference Range Interpretation Comments PHOSPHORUS (BEAKER) 3.3 mg/dL 2.3-4.7 Specimen slightly (test code = 604) hemolyzed LACTIC ACID, [id number] 15:52:00 Test Item Value Reference Range Interpretation Comments LACTATE BLOOD 1.0 mmol/L 0.5-2.2 Specimen sligh tly ARTERIAL (2) (BEAKER) hemoly zed (test code = 2874) [id number] 15:48:00 Test Item Value Reference Range Interpretation Comments PROTIME (BEAKER) (test code = 15.0 seconds 11.9-14.2 H 759) INR (BEAKER) (test code = 370) 1.2 <=5.9 PARTIAL THROMBOPLASTIN TIME 40.5 seconds 22.5-36.0 H (BEAKER) (test code = 760) Effective 10/20/2018: PT Reference Range ChangeNew: 11.9-14.2 Previous: 11.7- 14.7RECOMMENDED COUMADIN/WARFARIN INR THERAPY RANGESSTANDARD DOSE: 2.0-3.0 Includes: PROPHYLAXIS for venous thrombosis, systemic embolization; TREATMENT for venous thrombosis and/or pulmonary embolus.HIGH RISK: Target INR is2.5-3.5 for patients wiht mechanical heart valves.CBC W/PLT COUNT & AUTO [id number] 15:31:00 Test Item Value Reference Range Interpretation Comments WHITE BLOOD CELL COUNT (BEAKER) 15.4 K/ L 3.5-10.5 H (test code = 775) RED BLOOD CELL COUNT (BEAKER) 3.87 M/ L 4.63-6.08 L (test code = 761) HEMOGLOBIN (BEAKER) (test code = 11.6 GM/DL 13.7-17.5 L 410) HEMATOCRIT (BEAKER) (test code = 36.2 % 40.1-51.0 L 411) MEAN CORPUSCULAR VOLUME (BEAKER) 93.5 fL 79.0-92.2 H (test code = 753) MEAN CORPUSCULAR HEMOGLOBIN 30.0 pg 25.7-32.2 (BEAKER) (test code = 751) MEAN CORPUSCULAR HEMOGLOBIN CONC 32.0 GM/DL 32.3-36.5 L (BEAKER) (test code = 752) RED CELL DISTRIBUTION WIDTH 16.0 % 11.6-14.4 H (BEAKER) (test code = 412) PLATELET COUNT (BEAKER) (test 128 K/CU MM 150-450 L code = 756) MEAN PLATELET VOLUME (BEAKER) 9.0 fL 9.4-12.4 L (test code = 754) NUCLEATED RED BLOOD CELLS 0 /100 WBC 0-0 (BEAKER) (test code = 413) NEUTROPHILS RELATIVE PERCENT 86 % (BEAKER) (test code = 429) LYMPHOCYTES RELATIVE PERCENT 8 % (BEAKER) (test code = 430) MONOCYTES RELATIVE PERCENT 5 % (BEAKER) (test code = 431) EOSINOPHILS RELATIVE PERCENT 1 % (BEAKER) (test code = 432) BASOPHILS RELATIVE PERCENT 0 % (BEAKER) (test code = 437) NEUTROPHILS ABSOLUTE COUNT 13.17 K/ L 1.78-5.38 H (BEAKER) (test code = 670) LYMPHOCYTES ABSOLUTE COUNT 1.28 K/ L 1.32-3.57 L (BEAKER) (test code = 414) MONOCYTES ABSOLUTE COUNT (BEAKER) 0.69 K/ L 0.30-0.82 (test code = 415) EOSINOPHILS ABSOLUTE COUNT 0.07 K/ L 0.04-0.54 (BEAKER) (test code = 416) BASOPHILS ABSOLUTE COUNT (BEAKER) 0.03 K/ L 0.01-0.08 (test code = 417) IMMATURE GRANULOCYTES-RELATIVE 1 % 0-1 PERCENT (BEAKER) (test code = 2801) OXYGEN SATURATION, [id number] 15:30:00 Test Item Value Reference Range Interpretation Comments O2 SATURATION (MEASURED) (BEAKER) 90.0 % (test code = 1455) BLOOD GAS, [id number] 15:30:00 Test Item Value Reference Range Interpretation Comments PH ARTERIAL (BEAKER) (test code = 7.38 7.35-7.45 383) PCO2 ARTERIAL (BEAKER) (test code 38 mmHg 35-45 = 384) PO2 ARTERIAL (BEAKER) (test code 106 mmHg 80-90 H = 385) O2 SATURATION ARTERIAL (BEAKER) 97.8 % 96.0-97.0 H (test code = 386) HCO3 ARTERIAL (BEAKER) (test code 22 mmol/L 21-29 = 388) BASE EXCESS ARTERIAL (BEAKER) -2.7 mmol/L -2.0-3.0 L (test code = 387) PATIENT TEMPERATURE (BEAKER) 37.0 C (test code = 1818) FIO2 (BEAKER) (test code = 1819) 100.0 % RAD, CHEST, 1 VIEW, NON [id number] 15:29:00Reason for exam:->Status post CV Surgery post op day 0Should this be performed at the bedside?->YesFINAL REPORT EXAM: Frontal chest radiograph HISTORY PROVIDED: Status post cardiovascular surgery postop day 0 COMPARISON: 11/07/2018 IMPRESSION:The tip of a left IJ central venouscatheter likely projects over the expected location of the left brachiocephalic vein, just inferior to the aortic arch, however an arterial placement is not excluded and could be confirmed with a bloodgas. The tip of an endotracheal tube terminates approximately 1 cm above the rissa. The tip of an enteric tube projects over the expected location of the stomach. A left thoracostomy tube and mediastinal drain are in place. Lung volumes are low. There are perihilar and bibasilar opacities, left greater than right, likely representing a combination of pulmonary edema and atelectasis. Small bilateral pleural effusions are noted. No discernible pneumothorax. The cardiomediastinal silhouette is enlarged likely secondary to recent surgery and also technique, however a pericardial effusion is not excluded. Sternotomy wires are noted. No acute osseous abnormality. Signed: Werner Cantu [facility] Verified Date/Time: 11/08/2018 15:29:07 Reading Location: [facility] Reading Room MBOELASTOGRAPH (TEG)2018-11-08 14:44:00 Test Item Value Reference Range Interpretation Comments TEG ACTIVATED CLOTTING TIME 5.0 minutes 4.0-7.0 (BEAKER) (test code = 1407) TEG FIBRINOGEN ACTIVITY (BEAKER) 67.4 degrees 61.0-73.0 (test code = 1408) TEG PLT. AGGREGATION (BEAKER) 57.3 MM 55.0-65.0 (test code = 1409) TGH ACTIVATED CLOTTING TIME 5.0 minutes 4.0-7.0 (BEAKER) (test code = 1411) TGH FIBRINOGEN ACTIVITY (BEAKER) 67.0 degrees 61.0-73.0 (test code = 1412) TGH PLT. AGGREGATION (BEAKER) 54.5 MM 55.0-65.0 L (test code = 1413) PROTHROMBIN [id number] 13:56:00 Test Item Value Reference Range Interpretation Comments PROTIME (BEAKER) (test code = 18.2 seconds 11.9-14.2 H 759) INR (BEAKER) (test code = 370) 1.6 <=5.9 Effective 10/20/2018: PT Reference Range ChangeNew: 11.9-14.2 Previous: 11.7- 14.7RECOMMENDED COUMADIN/WARFARIN INR THERAPY RANGESSTANDARD DOSE: 2.0-3.0 Includes: PROPHYLAXIS for venous thrombosis, systemic embolization; TREATMENT for venous thrombosis and/or pulmonary embolus.HIGH RISK: Target INR is2.5-3.5 for patients wiht mechanical heart valves.[id number] 13:56:00 Test Item Value Reference Range Interpretation Comments FIBRINOGEN LEVEL (BEAKER) (test 449 mg/dl 225-434 H code = 658) [id number] 13:56:00 Test Item Value Reference Range Interpretation Comments PARTIAL THROMBOPLASTIN TIME 30.5 seconds 22.5-36.0 (BEAKER) (test code = 760) PLATELET [id number] 13:49:00 Test Item Value Reference Range Interpretation Comments PLATELET COUNT (BEAKER) (test 106 K/CU MM 150-450 L code = 756) BLOOD GAS, [id number] 13:44:00 Test Item Value Reference Range Interpretation Comments PH ARTERIAL (BEAKER) (test code = 7.38 7.35-7.45 383) PCO2 ARTERIAL (BEAKER) (test code 40 mmHg 35-45 = 384) PO2 ARTERIAL (BEAKER) (test code 109 mmHg 80-90 H = 385) O2 SATURATION ARTERIAL (BEAKER) 98.1 % 96.0-97.0 H (test code = 386) HCO3 ARTERIAL (BEAKER) (test code 24 mmol/L 21-29 = 388) BASE EXCESS ARTERIAL (BEAKER) -1.9 mmol/L -2.0-3.0 (test code = 387) PATIENT TEMPERATURE (BEAKER) 35.9 C (test code = 1818) FIO2 (BEAKER) (test code = 1819) 100.0 % GLUCOSE-STAT [id number] 13:44:00 Test Item Value Reference Range Interpretation Comments GLUCOSE RANDOM (BEAKER) (test code 176 mg/dL 70-110 H = 652) HGB/HCT (H&H) - STAT [id number] 13:44:00 Test Item Value Reference Range Interpretation Comments HEMOGLOBIN (BEAKER) (test code = 9.3 g/dL 13.0-16.8 L 410) HEMATOCRIT (BEAKER) (test code = 27.0 % 40.0-50.0 L 411) CALCIUM, [id number] 13:44:00 Test Item Value Reference Range Interpretation Comments CALCIUM IONIZED (BEAKER) (test 1.28 mmol/L 1.12-1.27 H code = 698) PH, BLOOD (BEAKER) (test code = 7.36 1810) SODIUM NA-STAT [id number] 13:43:00 Test Item Value Reference Range Interpretation Comments SODIUM (BEAKER) (test code = 381) 137 meq/L 135-148 POTASSIUM-STAT [id number] 13:43:00 Test Item Value Reference Range Interpretation Comments POTASSIUM (BEAKER) (test code = 5.0 meq/L 3.6-5.5 379) BLOOD GAS, [id number] 13:28:00 Test Item Value Reference Range Interpretation Comments PH ARTERIAL (BEAKER) (test code = 7.42 7.35-7.45 383) PCO2 ARTERIAL (BEAKER) (test code 42 mmHg 35-45 = 384) PO2 ARTERIAL (BEAKER) (test code = 279 mmHg 80-90 H 385) O2 SATURATION ARTERIAL (BEAKER) 99.7 % 96.0-97.0 H (test code = 386) HCO3 ARTERIAL (BEAKER) (test code 27 mmol/L 21-29 = 388) BASE EXCESS ARTERIAL (BEAKER) 1.3 mmol/L -2.0-3.0 (test code = 387) PATIENT TEMPERATURE (BEAKER) (test 35.1 C code = 1818) FIO2 (BEAKER) (test code = 1819) 80.0 % SODIUM NA-STAT [id number] 13:28:00 Test Item Value Reference Range Interpretation Comments SODIUM (BEAKER) (test code = 381) 139 meq/L 135-148 GLUCOSE-STAT [id number] 13:28:00 Test Item Value Reference Range Interpretation Comments GLUCOSE RANDOM (BEAKER) (test code 194 mg/dL 70-110 H = 652) HGB/HCT (H&H) - STAT [id number] 13:28:00 Test Item Value Reference Range Interpretation Comments HEMOGLOBIN (BEAKER) (test code = 10.1 g/dL 13.0-16.8 L 410) HEMATOCRIT (BEAKER) (test code = 30.0 % 40.0-50.0 L 411) POTASSIUM-STAT [id number] 13:23:00 Test Item Value Reference Range Interpretation Comments POTASSIUM (BEAKER) (test code = 5.5 meq/L 3.6-5.5 379) BLOOD GAS, [id number] 12:53:00 Test Item Value Reference Range Interpretation Comments PH ARTERIAL (BEAKER) (test code = 7.31 7.35-7.45 L 383) PCO2 ARTERIAL (BEAKER) (test code 45 mmHg 35-45 = 384) PO2 ARTERIAL (BEAKER) (test code 283 mmHg 80-90 H = 385) O2 SATURATION ARTERIAL (BEAKER) 99.6 % 96.0-97.0 H (test code = 386) HCO3 ARTERIAL (BEAKER) (test code 22 mmol/L 21-29 = 388) BASE EXCESS ARTERIAL (BEAKER) -4.0 mmol/L -2.0-3.0 L (test code = 387) PATIENT TEMPERATURE (BEAKER) 37.0 C (test code = 1818) FIO2 (BEAKER) (test code = 1819) 100.0 % SODIUM NA-STAT [id number] 12:53:00 Test Item Value Reference Range Interpretation Comments SODIUM (BEAKER) (test code = 381) 130 meq/L 135-148 L GLUCOSE-STAT [id number] 12:53:00 Test Item Value Reference Range Interpretation Comments GLUCOSE RANDOM (BEAKER) (test code 231 mg/dL 70-110 H = 652) HGB/HCT (H&H) - STAT [id number] 12:53:00 Test Item Value Reference Range Interpretation Comments HEMOGLOBIN (BEAKER) (test code = 8.4 g/dL 13.0-16.8 L 410) HEMATOCRIT (BEAKER) (test code = 25.0 % 40.0-50.0 L 411) POTASSIUM-STAT [id number] 12:53:00 Test Item Value Reference Range Interpretation Comments POTASSIUM (BEAKER) (test code = 6.0 meq/L 3.6-5.5 HH 379) BLOOD GAS, [id number] 12:28:00 Test Item Value Reference Range Interpretation Comments PH ARTERIAL (BEAKER) (test code = 7.34 7.35-7.45 L 383) PCO2 ARTERIAL (BEAKER) (test code 45 mmHg 35-45 = 384) PO2 ARTERIAL (BEAKER) (test code 282 mmHg 80-90 H = 385) O2 SATURATION ARTERIAL (BEAKER) 99.6 % 96.0-97.0 H (test code = 386) HCO3 ARTERIAL (BEAKER) (test code 26 mmol/L 21-29 = 388) BASE EXCESS ARTERIAL (BEAKER) -1.6 mmol/L -2.0-3.0 (test code = 387) PATIENT TEMPERATURE (BEAKER) 29.0 C (test code = 1818) FIO2 (BEAKER) (test code = 1819) 65.0 % SODIUM NA-STAT [id number] 12:28:00 Test Item Value Reference Range Interpretation Comments SODIUM (BEAKER) (test code = 381) 131 meq/L 135-148 L POTASSIUM-STAT [id number] 12:28:00 Test Item Value Reference Range Interpretation Comments POTASSIUM (BEAKER) (test code = 6.0 meq/L 3.6-5.5 HH 379) GLUCOSE-STAT [id number] 12:28:00 Test Item Value Reference Range Interpretation Comments GLUCOSE RANDOM (BEAKER) (test code 220 mg/dL 70-110 H = 652) HGB/HCT (H&H) - STAT [id number] 12:28:00 Test Item Value Reference Range Interpretation Comments HEMOGLOBIN (BEAKER) (test code = 8.6 g/dL 13.0-16.8 L 410) HEMATOCRIT (BEAKER) (test code = 25.0 % 40.0-50.0 L 411) BLOOD GAS, [id number] 11:39:00 Test Item Value Reference Range Interpretation Comments PH ARTERIAL (BEAKER) (test code = 7.45 7.35-7.45 383) PCO2 ARTERIAL (BEAKER) (test code 36 mmHg 35-45 = 384) PO2 ARTERIAL (BEAKER) (test code = 323 mmHg 80-90 H 385) O2 SATURATION ARTERIAL (BEAKER) 99.8 % 96.0-97.0 H (test code = 386) HCO3 ARTERIAL (BEAKER) (test code 27 mmol/L 21-29 = 388) BASE EXCESS ARTERIAL (BEAKER) 0.6 mmol/L -2.0-3.0 (test code = 387) PATIENT TEMPERATURE (BEAKER) (test 29.0 C code = 1818) FIO2 (BEAKER) (test code = 1819) 65.0 % SODIUM NA-STAT [id number] 11:39:00 Test Item Value Reference Range Interpretation Comments SODIUM (BEAKER) (test code = 381) 132 meq/L 135-148 L POTASSIUM-STAT [id number] 11:39:00 Test Item Value Reference Range Interpretation Comments POTASSIUM (BEAKER) (test code = 5.7 meq/L 3.6-5.5 H 379) GLUCOSE-STAT [id number] 11:39:00 Test Item Value Reference Range Interpretation Comments GLUCOSE RANDOM (BEAKER) (test code 217 mg/dL 70-110 H = 652) HGB/HCT (H&H) - STAT [id number] 11:39:00 Test Item Value Reference Range Interpretation Comments HEMOGLOBIN (BEAKER) (test code = 7.6 g/dL 13.0-16.8 L 410) HEMATOCRIT (BEAKER) (test code = 22.0 % 40.0-50.0 L 411) PLATELET AGGREGATION: FUNCTION [id number] 11:26:00 Test Item Value Reference Range Interpretation Comments WEAK ADP 46 % 60-91 L RESULT(BEAKER) (test code = 2135) PLATELET FUNCTION 40-49% indicates SCREEN INTERP moderate platelet (BEAKER) (test code = dysfunction 2173) [id number] Brody Gaytan MD ([facility]) (test code = (electronic signature) 2622) PLATELET COUNT AGG 236 K/CU MM 150-450 (BEAKER) (test code = 2656) Platelet Function Screen results may be falsely low with platelet counts<100,000/cu mm.for patients on clopidogrel in past two weeksfor patients on clopidogrel in past two weeksfor patients on clopidogrel in past two weeksPLATELET AGGREGATION: FUNCTION [id number] 11:25:00 Test Item Value Reference Range Interpretation Comments WEAK ADP 97 % 60-91 H RESULT(BEAKER) (test code = 2135) PLATELET FUNCTION 60-100% indicates SCREEN INTERP (BEAKER) normal platelet (test code = 2173) function [id number] Brody Gaytan MD (BEAKER) (test code = (electronic signature) 2622) PLATELET COUNT AGG 206 K/CU MM 150-450 (BEAKER) (test code = 2656) Platelet Function Screen results may be falsely low with platelet counts<100,000/cu mm.SODIUM NA-STAT [id number] 09:03:00 Test Item Value Reference Range Interpretation Comments SODIUM (BEAKER) (test code = 381) 135 meq/L 135-148 POTASSIUM-STAT [id number] 09:03:00 Test Item Value Reference Range Interpretation Comments POTASSIUM (BEAKER) (test code = 4.1 meq/L 3.6-5.5 379) BLOOD GAS, [id number] 09:03:00 Test Item Value Reference Range Interpretation Comments PH ARTERIAL (BEAKER) (test code = 7.44 7.35-7.45 383) PCO2 ARTERIAL (BEAKER) (test code 43 mmHg 35-45 = 384) PO2 ARTERIAL (BEAKER) (test code = 252 mmHg 80-90 H 385) O2 SATURATION ARTERIAL (BEAKER) 99.6 % 96.0-97.0 H (test code = 386) HCO3 ARTERIAL (BEAKER) (test code 29 mmol/L 21-29 = 388) BASE EXCESS ARTERIAL (BEAKER) 3.7 mmol/L -2.0-3.0 H (test code = 387) PATIENT TEMPERATURE (BEAKER) (test 36.0 C code = 1818) FIO2 (BEAKER) (test code = 1819) 100.0 % GLUCOSE-STAT [id number] 09:03:00 Test Item Value Reference Range Interpretation Comments GLUCOSE RANDOM (BEAKER) (test code 146 mg/dL 70-110 H = 652) HGB/HCT (H&H) - STAT [id number] 09:03:00 Test Item Value Reference Range Interpretation Comments HEMOGLOBIN (BEAKER) (test code = 10.2 g/dL 13.0-16.8 L 410) HEMATOCRIT (BEAKER) (test code = 30.0 % 40.0-50.0 L 411) POCT-GLUCOSE [id number] 07:40:00 Test Item Value Reference Range Interpretation Comments POC-GLUCOSE METER 205 mg/dL 70-110 H TESTED AT [facility] 6720 (BEAKER) (test code = BRENDA ELLER 1538) [address] BASIC METABOLIC [id number] 07:21:00 Test Item Value Reference Range Interpretation Comments SODIUM (BEAKER) 137 meq/L 136-145 (test code = 381) POTASSIUM (BEAKER) 4.2 meq/L 3.5-5.1 (test code = 379) CHLORIDE (BEAKER) 99 meq/L 98-107 (test code = 382) CO2 (BEAKER) (test 28 meq/L 22-29 code = 355) BLOOD UREA NITROGEN 36 mg/dL 7-21 H (BEAKER) (test code = 354) CREATININE (BEAKER) 6.89 mg/dL 0.57-1.25 H (test code = 358) GLUCOSE RANDOM 200 mg/dL 70-105 H (BEAKER) (test code = 652) CALCIUM (BEAKER) 9.0 mg/dL 8.4-10.2 (test code = 697) EGFR (BEAKER) (test 8 mL/min/1.73 ESTIMAT ED GFR IS code = 1092) sq m NOT ACCURATE CREATININE CLEARANCE IN PREDICTING GLOMERULAR FILTRATION RATE . ESTIMATED GFR I S NOT APPLICABLE FOR DIALYSIS THAI TS. [id number] 07:11:00 Test Item Value Reference Range Interpretation Comments PHOSPHORUS (BEAKER) (test code = 4.6 mg/dL 2.3-4.7 604) [id number] 07:11:00 Test Item Value Reference Range Interpretation Comments MAGNESIUM (BEAKER) (test code = 1.8 mg/dL 1.6-2.6 627) [id number] 07:01:00 Test Item Value Reference Range Interpretation Comments PROTIME (BEAKER) (test code = 13.6 seconds 11.9-14.2 759) INR (BEAKER) (test code = 370) 1.1 <=5.9 PARTIAL THROMBOPLASTIN TIME 80.7 seconds 22.5-36.0 H (BEAKER) (test code = 760) Effective 10/20/2018: PT Reference Range ChangeNew: 11.9-14.2 Previous: 11.7- 14.7RECOMMENDED COUMADIN/WARFARIN INR THERAPY RANGESSTANDARD DOSE: 2.0-3.0 Includes: PROPHYLAXIS for venous thrombosis, systemic embolization; TREATMENT for venous thrombosis and/or pulmonary embolus.HIGH RISK: Target INR is2.5-3.5 for patients wiht mechanical heart valves.CBC W/PLT COUNT & AUTO [id number] 06:55:00 Test Item Value Reference Range Interpretation Comments WHITE BLOOD CELL COUNT (BEAKER) 6.6 K/ L 3.5-10.5 (test code = 775) RED BLOOD CELL COUNT (BEAKER) 3.26 M/ L 4.63-6.08 L (test code = 761) HEMOGLOBIN (BEAKER) (test code = 9.7 GM/DL 13.7-17.5 L 410) HEMATOCRIT (BEAKER) (test code = 32.6 % 40.1-51.0 L 411) MEAN CORPUSCULAR VOLUME (BEAKER) 100.0 fL 79.0-92.2 H (test code = 753) MEAN CORPUSCULAR HEMOGLOBIN 29.8 pg 25.7-32.2 (BEAKER) (test code = 751) MEAN CORPUSCULAR HEMOGLOBIN CONC 29.8 GM/DL 32.3-36.5 L (BEAKER) (test code = 752) RED CELL DISTRIBUTION WIDTH 13.5 % 11.6-14.4 (BEAKER) (test code = 412) PLATELET COUNT (BEAKER) (test 208 K/CU MM 150-450 code = 756) MEAN PLATELET VOLUME (BEAKER) 9.0 fL 9.4-12.4 L (test code = 754) NUCLEATED RED BLOOD CELLS 0 /100 WBC 0-0 (BEAKER) (test code = 413) NEUTROPHILS RELATIVE PERCENT 68 % (BEAKER) (test code = 429) LYMPHOCYTES RELATIVE PERCENT 20 % (BEAKER) (test code = 430) MONOCYTES RELATIVE PERCENT 9 % (BEAKER) (test code = 431) EOSINOPHILS RELATIVE PERCENT 3 % (BEAKER) (test code = 432) BASOPHILS RELATIVE PERCENT 1 % (BEAKER) (test code = 437) NEUTROPHILS ABSOLUTE COUNT 4.42 K/ L 1.78-5.38 (BEAKER) (test code = 670) LYMPHOCYTES ABSOLUTE COUNT 1.30 K/ L 1.32-3.57 L (BEAKER) (test code = 414) MONOCYTES ABSOLUTE COUNT (BEAKER) 0.60 K/ L 0.30-0.82 (test code = 415) EOSINOPHILS ABSOLUTE COUNT 0.18 K/ L 0.04-0.54 (BEAKER) (test code = 416) BASOPHILS ABSOLUTE COUNT (BEAKER) 0.04 K/ L 0.01-0.08 (test code = 417) IMMATURE GRANULOCYTES-RELATIVE 0 % 0-1 PERCENT (BEAKER) (test code = 2801) RAD, CHEST, 1 VIEW, NON [id number] 01:36:00Reason for exam:->pre opShould this be performed at the bedside?->YesFINAL REPORT EXAMINATION: AP PORTABLE CHEST RADIOGRAPH CLINICAL INDICATION: Shortness of breath IMPRESSION: Compared with 2 view chest 07/29/2016. No definite evidence of new focallung consolidation, pulmonary edema, large pleural effusion or pneumothorax. Heart size is normal for this projection. Mediastinal contours are smooth, sharp and similar to previous allowing for differences in technique and positioning. No evidence of an acute osseous abnormality. Signed: Wanda Pereira Verified Date/Time: 11/08/2018 01:36:48 Reading Location: [address] Reading Room [id number] 22:17:00 Test Item Value Reference Range Interpretation Comments PARTIAL THROMBOPLASTIN TIME 96.5 seconds 22.5-36.0 H ([facility]) (test code = 760) PROTHROMBIN TIME/[id number] 22:15:00 Test Item Value Reference Range Interpretation Comments PROTIME (ALEYDA) (test code = 15.0 seconds 11.9-14.2 H 759) INR ([facility]) (test code = 370) 1.2 <=5.9 Effective 10/20/2018: PT Reference Range ChangeNew: 11.9-14.2 Previous: 11.7- 14.7RECOMMENDED COUMADIN/WARFARIN INR THERAPY RANGESSTANDARD DOSE: 2.0-3.0 Includes: PROPHYLAXIS for venous thrombosis, systemic embolization; TREATMENT for venous thrombosis and/or pulmonary embolus.HIGH RISK: Target INR is2.5-3.5 for patients wiht mechanical heart valves.POCT-GLUCOSE [id number] 21:47:00 Test Item Value Reference Range Interpretation Comments POC-GLUCOSE METER 202 mg/dL 70-110 H TESTED AT [facility] ([place] [facility] (test code = BRENDA RAMIREZ [place] 1538) [address] POCT-GLUCOSE [id number] 17:15:00 Test Item Value Reference Range Interpretation Comments POC-GLUCOSE METER 230 mg/dL 70-110 H TESTED AT [facility] ([facility]) (test code = [facility] Conner [facility] 1538) [id number] 15:36:00 Test Item Value Reference Range Interpretation Comments POTASSIUM (BEAKER) 3.6 meq/L 3.5-5.1 Specimen slightly (test code = 379) hemolyzed POCT-GLUCOSE [id number] 12:00:00 Test Item Value Reference Range Interpretation Comments POC-GLUCOSE METER 145 mg/dL 70-110 H TESTED AT [place] [address] ([facility]) (test code = [facility] 1538) [address] POCT-GLUCOSE [id number] 07:45:00 Test Item Value Reference Range Interpretation Comments POC-GLUCOSE METER 204 mg/dL 70-110 H TESTED AT [place] [address] ([facility]) (test code = [facility] 1538) [address] BASIC METABOLIC [id number] 06:52:00 Test Item Value Reference Range Interpretation Comments SODIUM (BEAKER) 135 meq/L 136-145 L (test code = 381) POTASSIUM (BEAKER) 5.3 meq/L 3.5-5.1 H Specimen slightly (test code = 379) hemolyzed CHLORIDE (BEAKER) 97 meq/L 98-107 L (test code = 382) CO2 (BEAKER) (test 25 meq/L 22-29 code = 355) BLOOD UREA NITROGEN 60 mg/dL 7-21 H (BEAKER) (test code = 354) CREATININE (BEAKER) 9.57 mg/dL 0.57-1.25 H Specimen slightly (test code = 358) hemolyzed GLUCOSE RANDOM 193 mg/dL 70-105 H (BEAKER) (test code = 652) CALCIUM (BEAKER) 8.8 mg/dL 8.4-10.2 (test code = 697) EGFR (BEAKER) (test 6 mL/min/1.73 ESTIMAT ED GFR IS code = 1092) sq m NOT ACCURATE CREATININE CLEARANCE IN PREDICTING GLOMERULAR FILTRATION RATE . ESTIMATED GFR I S NOT APPLICABLE FOR DIALYSIS PATIEN TS. [id number] 06:44:00 Test Item Value Reference Range Interpretation Comments MAGNESIUM (BEAKER) 2.2 mg/dL 1.6-2.6 Specimen slightly (test code = 627) hemolyzed [id number] 06:44:00 Test Item Value Reference Range Interpretation Comments PHOSPHORUS (BEAKER) 6.6 mg/dL 2.3-4.7 H Specimen slightly (test code = 604) hemolyzed [id number] 06:34:00 Test Item Value Reference Range Interpretation Comments PROTIME (BEAKER) (test code = 12.8 seconds 11.9-14.2 759) INR (BEAKER) (test code = 370) 1.0 <=5.9 PARTIAL THROMBOPLASTIN TIME 86.8 seconds 22.5-36.0 H (BEAKER) (test code = 760) Effective 10/20/2018: PT Reference Range ChangeNew: 11.9-14.2 Previous: 11.7- 14.7RECOMMENDED COUMADIN/WARFARIN INR THERAPY RANGESSTANDARD DOSE: 2.0-3.0 Includes: PROPHYLAXIS for venous thrombosis, systemic embolization; TREATMENT for venous thrombosis and/or pulmonary embolus.HIGH RISK: Target INR is2.5-3.5 for patients wiht mechanical heart valves.CBC W/PLT COUNT & AUTO [id number] 06:14:00 Test Item Value Reference Range Interpretation Comments WHITE BLOOD CELL COUNT (BEAKER) 7.4 K/ L 3.5-10.5 (test code = 775) RED BLOOD CELL COUNT (BEAKER) 3.25 M/ L 4.63-6.08 L (test code = 761) HEMOGLOBIN (BEAKER) (test code = 9.7 GM/DL 13.7-17.5 L 410) HEMATOCRIT (BEAKER) (test code = 31.3 % 40.1-51.0 L 411) MEAN CORPUSCULAR VOLUME (BEAKER) 96.3 fL 79.0-92.2 H (test code = 753) MEAN CORPUSCULAR HEMOGLOBIN 29.8 pg 25.7-32.2 (BEAKER) (test code = 751) MEAN CORPUSCULAR HEMOGLOBIN CONC 31.0 GM/DL 32.3-36.5 L (BEAKER) (test code = 752) RED CELL DISTRIBUTION WIDTH 13.3 % 11.6-14.4 (BEAKER) (test code = 412) PLATELET COUNT (BEAKER) (test 214 K/CU MM 150-450 code = 756) MEAN PLATELET VOLUME (BEAKER) 8.9 fL 9.4-12.4 L (test code = 754) NUCLEATED RED BLOOD CELLS 0 /100 WBC 0-0 (BEAKER) (test code = 413) NEUTROPHILS RELATIVE PERCENT 71 % (BEAKER) (test code = 429) LYMPHOCYTES RELATIVE PERCENT 18 % (BEAKER) (test code = 430) MONOCYTES RELATIVE PERCENT 8 % (BEAKER) (test code = 431) EOSINOPHILS RELATIVE PERCENT 3 % (BEAKER) (test code = 432) BASOPHILS RELATIVE PERCENT 1 % (BEAKER) (test code = 437) NEUTROPHILS ABSOLUTE COUNT 5.22 K/ L 1.78-5.38 (BEAKER) (test code = 670) LYMPHOCYTES ABSOLUTE COUNT 1.30 K/ L 1.32-3.57 L (BEAKER) (test code = 414) MONOCYTES ABSOLUTE COUNT (BEAKER) 0.56 K/ L 0.30-0.82 (test code = 415) EOSINOPHILS ABSOLUTE COUNT 0.21 K/ L 0.04-0.54 (BEAKER) (test code = 416) BASOPHILS ABSOLUTE COUNT (BEAKER) 0.04 K/ L 0.01-0.08 (test code = 417) IMMATURE GRANULOCYTES-RELATIVE 1 % 0-1 PERCENT (BEAKER) (test code = 2801) POCT-GLUCOSE [id number] 22:00:00 Test Item Value Reference Range Interpretation Comments POC-GLUCOSE METER 214 mg/dL 70-110 H TESTED AT [place] [address] ([facility]) (test code = BRENDA ELLER 1538) [address] [id number] 18:44:00 Test Item Value Reference Range Interpretation Comments PARTIAL THROMBOPLASTIN TIME 79.0 seconds 22.5-36.0 H ([facility]) (test code = 760) POCT-GLUCOSE [id number] 16:38:00 Test Item Value Reference Range Interpretation Comments POC-GLUCOSE METER 194 mg/dL 70-110 H TESTED AT [place] [address] ([facility]) (test code = BRENDA RAMIREZ [place] 1538) [address] [id number] 12:50:00 Test Item Value Reference Range Interpretation Comments PARTIAL THROMBOPLASTIN TIME 83.0 seconds 22.5-36.0 H (BEAKER) (test code = 760) POCT-GLUCOSE [id number] 12:31:00 Test Item Value Reference Range Interpretation Comments POC-GLUCOSE METER 270 mg/dL 70-110 H TESTED AT [facility] (BEAKER) (test code = BRENDA Prieto [facility] [place] 1538) [address] POCT-GLUCOSE [id number] 07:58:00 Test Item Value Reference Range Interpretation Comments POC-GLUCOSE METER 212 mg/dL 70-110 H TESTED AT [facility] (BEAKER) (test code = BRENDA Prieto [facility] [place] 1538) [address] CBC W/PLT COUNT & AUTO [id number] 05:56:00 Test Item Value Reference Range Interpretation Comments WHITE BLOOD CELL COUNT (BEAKER) 5.9 K/ L 3.5-10.5 (test code = 775) RED BLOOD CELL COUNT (BEAKER) 3.71 M/ L 4.63-6.08 L (test code = 761) HEMOGLOBIN (BEAKER) (test code = 11.1 GM/DL 13.7-17.5 L 410) HEMATOCRIT (BEAKER) (test code = 36.6 % 40.1-51.0 L 411) MEAN CORPUSCULAR VOLUME (BEAKER) 98.7 fL 79.0-92.2 H (test code = 753) MEAN CORPUSCULAR HEMOGLOBIN 29.9 pg 25.7-32.2 (BEAKER) (test code = 751) MEAN CORPUSCULAR HEMOGLOBIN CONC 30.3 GM/DL 32.3-36.5 L (BEAKER) (test code = 752) RED CELL DISTRIBUTION WIDTH 13.9 % 11.6-14.4 (BEAKER) (test code = 412) PLATELET COUNT (BEAKER) (test 258 K/CU MM 150-450 code = 756) MEAN PLATELET VOLUME (BEAKER) 8.9 fL 9.4-12.4 L (test code = 754) NUCLEATED RED BLOOD CELLS 0 /100 WBC 0-0 (BEAKER) (test code = 413) NEUTROPHILS RELATIVE PERCENT 71 % (BEAKER) (test code = 429) LYMPHOCYTES RELATIVE PERCENT 17 % (BEAKER) (test code = 430) MONOCYTES RELATIVE PERCENT 8 % (BEAKER) (test code = 431) EOSINOPHILS RELATIVE PERCENT 2 % (BEAKER) (test code = 432) BASOPHILS RELATIVE PERCENT 1 % (BEAKER) (test code = 437) NEUTROPHILS ABSOLUTE COUNT 4.21 K/ L 1.78-5.38 (BEAKER) (test code = 670) LYMPHOCYTES ABSOLUTE COUNT 1.03 K/ L 1.32-3.57 L (BEAKER) (test code = 414) MONOCYTES ABSOLUTE COUNT (BEAKER) 0.49 K/ L 0.30-0.82 (test code = 415) EOSINOPHILS ABSOLUTE COUNT 0.14 K/ L 0.04-0.54 (BEAKER) (test code = 416) BASOPHILS ABSOLUTE COUNT (BEAKER) 0.03 K/ L 0.01-0.08 (test code = 417) IMMATURE GRANULOCYTES-RELATIVE 1 % 0-1 PERCENT (BEAKER) (test code = 2801) [id number] 05:43:00 Test Item Value Reference Range Interpretation Comments PARTIAL THROMBOPLASTIN TIME 43.1 seconds 22.5-36.0 H (BEAKER) (test code = 760) BASIC METABOLIC [id number] 04:36:00 Test Item Value Reference Range Interpretation Comments SODIUM (BEAKER) 137 meq/L 136-145 (test code = 381) POTASSIUM (BEAKER) 4.7 meq/L 3.5-5.1 (test code = 379) CHLORIDE (BEAKER) 99 meq/L 98-107 (test code = 382) CO2 (BEAKER) (test 25 meq/L 22-29 code = 355) BLOOD UREA NITROGEN 41 mg/dL 7-21 H (BEAKER) (test code = 354) CREATININE (BEAKER) 7.44 mg/dL 0.57-1.25 H (test code = 358) GLUCOSE RANDOM 204 mg/dL 70-105 H (BEAKER) (test code = 652) CALCIUM (BEAKER) 9.1 mg/dL 8.4-10.2 (test code = 697) EGFR (BEAKER) (test 8 mL/min/1.73 ESTIMAT ED GFR IS code = 1092) sq m NOT ACCURATE CREATININE CLEARANCE IN PREDICTING GLOMERULAR FILTRATION RATE . ESTIMATED GFR I S NOT APPLICABLE FOR DIALYSIS PATIEN TS. [id number] 04:22:00 Test Item Value Reference Range Interpretation Comments PHOSPHORUS (BEAKER) (test code = 5.6 mg/dL 2.3-4.7 H 604) [id number] 04:22:00 Test Item Value Reference Range Interpretation Comments MAGNESIUM (BEAKER) (test code = 2.0 mg/dL 1.6-2.6 627) POCT-GLUCOSE [id number] 21:27:00 Test Item Value Reference Range Interpretation Comments POC-GLUCOSE METER 170 mg/dL 70-110 H TESTED AT [place] [address] (BEAKER) (test code = BRENDA Prieto [facility] 1538) [address] POCT-GLUCOSE [id number] 18:29:00 Test Item Value Reference Range Interpretation Comments POC-GLUCOSE METER 315 mg/dL 70-110 H Notified Conner Leiva MD/TESTED (BEAKER) (test code = AT [address] 1538) [facility] [address] POCT-GLUCOSE [id number] 12:33:00 Test Item Value Reference Range Interpretation Comments POC-GLUCOSE METER 78 mg/dL 70-110 TESTED AT [place] [address] ([facility]) (test code = JAKEDE Conner [facility] [address] 1538) POCT-GLUCOSE [id number] 07:53:00 Test Item Value Reference Range Interpretation Comments POC-GLUCOSE METER 177 mg/dL 70-110 H TESTED AT [place] [address] ([facility]) (test code = JAKEDE Conner [facility] 1538) [address] [id number] 05:58:00 Test Item Value Reference Range Interpretation Comments FERRITIN (BEAKER) (test code = 1219 ng/mL 5-275 H 361) IRON, TIBC, % SAT. (WITHOUT FERRITIN)[id number] 05:37:00 Test Item Value Reference Range Interpretation Comments IRON (BEAKER) (test code = 547) 116.0 ug/dL 40.0-160.0 TOTAL IRON BINDING CAPACITY 215 ug/dL 250-450 L (BEAKER) (test code = 769) IRON % SATURATION (2) (BEAKER) 54 % 20-55 (test code = 2590) BASIC METABOLIC [id number] 05:28:00 Test Item Value Reference Range Interpretation Comments SODIUM (BEAKER) 132 meq/L 136-145 L (test code = 381) POTASSIUM (BEAKER) 5.0 meq/L 3.5-5.1 (test code = 379) CHLORIDE (BEAKER) 94 meq/L 98-107 L (test code = 382) CO2 (BEAKER) (test 23 meq/L 22-29 code = 355) BLOOD UREA NITROGEN 76 mg/dL 7-21 H (BEAKER) (test code = 354) CREATININE (BEAKER) 10.98 mg/dL 0.57-1.25 H (test code = 358) GLUCOSE RANDOM 176 mg/dL 70-105 H (BEAKER) (test code = 652) CALCIUM (BEAKER) 8.7 mg/dL 8.4-10.2 (test code = 697) EGFR (BEAKER) (test 5 mL/min/1.73 ESTIMAT ED GFR IS code = 1092) sq m NOT ACCURATE CREATININE CLEARANCE IN PREDICTING GLOMERULAR FILTRATION RATE . ESTIMATED GFR I S NOT APPLICABLE FOR DIALYSIS PATIEN TS. [id number] 05:24:00 Test Item Value Reference Range Interpretation Comments PHOSPHORUS (BEAKER) (test code = 7.5 mg/dL 2.3-4.7 H 604) [id number] 05:24:00 Test Item Value Reference Range Interpretation Comments MAGNESIUM (BEAKER) (test code = 2.0 mg/dL 1.6-2.6 627) [id number] 05:12:00 Test Item Value Reference Range Interpretation Comments PARTIAL THROMBOPLASTIN TIME 66.3 seconds 22.5-36.0 H (BEAKER) (test code = 760) CBC W/PLT COUNT & AUTO [id number] 05:00:00 Test Item Value Reference Range Interpretation Comments WHITE BLOOD CELL COUNT (BEAKER) 7.0 K/ L 3.5-10.5 (test code = 775) RED BLOOD CELL COUNT (BEAKER) 3.47 M/ L 4.63-6.08 L (test code = 761) HEMOGLOBIN (BEAKER) (test code = 10.3 GM/DL 13.7-17.5 L 410) HEMATOCRIT (BEAKER) (test code = 33.2 % 40.1-51.0 L 411) MEAN CORPUSCULAR VOLUME (BEAKER) 95.7 fL 79.0-92.2 H (test code = 753) MEAN CORPUSCULAR HEMOGLOBIN 29.7 pg 25.7-32.2 (BEAKER) (test code = 751) MEAN CORPUSCULAR HEMOGLOBIN CONC 31.0 GM/DL 32.3-36.5 L (BEAKER) (test code = 752) RED CELL DISTRIBUTION WIDTH 14.0 % 11.6-14.4 (BEAKER) (test code = 412) PLATELET COUNT (BEAKER) (test 242 K/CU MM 150-450 code = 756) MEAN PLATELET VOLUME (BEAKER) 8.6 fL 9.4-12.4 L (test code = 754) NUCLEATED RED BLOOD CELLS 0 /100 WBC 0-0 (BEAKER) (test code = 413) NEUTROPHILS RELATIVE PERCENT 66 % (BEAKER) (test code = 429) LYMPHOCYTES RELATIVE PERCENT 21 % (BEAKER) (test code = 430) MONOCYTES RELATIVE PERCENT 10 % (BEAKER) (test code = 431) EOSINOPHILS RELATIVE PERCENT 3 % (BEAKER) (test code = 432) BASOPHILS RELATIVE PERCENT 0 % (BEAKER) (test code = 437) NEUTROPHILS ABSOLUTE COUNT 4.62 K/ L 1.78-5.38 (BEAKER) (test code = 670) LYMPHOCYTES ABSOLUTE COUNT 1.45 K/ L 1.32-3.57 (BEAKER) (test code = 414) MONOCYTES ABSOLUTE COUNT (BEAKER) 0.70 K/ L 0.30-0.82 (test code = 415) EOSINOPHILS ABSOLUTE COUNT 0.18 K/ L 0.04-0.54 (BEAKER) (test code = 416) BASOPHILS ABSOLUTE COUNT (BEAKER) 0.03 K/ L 0.01-0.08 (test code = 417) IMMATURE GRANULOCYTES-RELATIVE 0 % 0-1 PERCENT (BEAKER) (test code = 2802) [id number] 23:22:00 Test Item Value Reference Range Interpretation Comments PARTIAL THROMBOPLASTIN TIME 64.9 seconds 22.5-36.0 H (BEAKER) (test code = 760) POCT-GLUCOSE [id number] 21:01:00 Test Item Value Reference Range Interpretation Comments POC-GLUCOSE METER 113 mg/dL 70-110 H TESTED AT [facility] 6720 (BEAKER) (test code = BRENDA ELLER 1538) [address] POCT-GLUCOSE [id number] 17:00:00 Test Item Value Reference Range Interpretation Comments POC-GLUCOSE METER 79 mg/dL 70-110 TESTED AT [facility] ([facility] [address] 1538) [id number] 15:58:00 Test Item Value Reference Range Interpretation Comments PARTIAL THROMBOPLASTIN TIME 45.3 seconds 22.5-36.0 H (BEAKER) (test code = 760) [id number] 13:49:00 Test Item Value Reference Range Interpretation Comments PARTIAL THROMBOPLASTIN TIME 198.1 seconds 22.5-36.0 HH (BEAKER) (test code = 760) POCT-GLUCOSE [id number] 11:52:00 Test Item Value Reference Range Interpretation Comments POC-GLUCOSE METER 201 mg/dL 70-110 H TESTED AT [place] [address] ([facility]) (test code = [facility] 1538) [address] POCT-GLUCOSE [id number] 07:48:00 Test Item Value Reference Range Interpretation Comments POC-GLUCOSE METER 194 mg/dL 70-110 H TESTED AT [place] [address] ([facility]) (test code = [facility] 1538) [address] BASIC METABOLIC [id number] 07:26:00 Test Item Value Reference Range Interpretation Comments SODIUM (BEAKER) 132 meq/L 136-145 L (test code = 381) POTASSIUM (BEAKER) 4.7 meq/L 3.5-5.1 Specimen slightly (test code = 379) hemolyzed CHLORIDE (BEAKER) 96 meq/L 98-107 L (test code = 382) CO2 (BEAKER) (test 24 meq/L 22-29 code = 355) BLOOD UREA NITROGEN 58 mg/dL 7-21 H (BEAKER) (test code = 354) CREATININE (BEAKER) 8.86 mg/dL 0.57-1.25 H Specimen slightly (test code = 358) hemolyzed GLUCOSE RANDOM 182 mg/dL 70-105 H (BEAKER) (test code = 652) CALCIUM (BEAKER) 8.9 mg/dL 8.4-10.2 (test code = 697) EGFR (BEAKER) (test 6 mL/min/1.73 ESTIMAT ED GFR IS code = 1092) sq m NOT ACCURATE CREATININE CLEARANCE IN PREDICTING GLOMERULAR FILTRATION RATE . ESTIMATED GFR I S NOT APPLICABLE FOR DIALYSIS PATIEN TS. [id number] 07:21:00 Test Item Value Reference Range Interpretation Comments PHOSPHORUS (BEAKER) 6.0 mg/dL 2.3-4.7 H Specimen slightly (test code = 604) hemolyzed HEPATIC FUNCTION [id number] 07:21:00 Test Item Value Reference Range Interpretation Comments TOTAL PROTEIN (BEAKER) 7.3 gm/dL 6.0-8.3 Speci men slightly (test code = 770) hemolyzed ALBUMIN (BEAKER) (test 3.6 g/dL 3.5-5.0 Speci men slightly code = 1145) hemolyzed BILIRUBIN TOTAL 0.4 mg/dL 0.2-1.2 Specimen sli ghtly (BEAKER) (test code = hemoly zed 377) BILIRUBIN DIRECT 0.2 mg/dL 0.1-0.5 Specimen sl ightly (BEAKER) (test code = hemoly zed 706) ALKALINE PHOSPHATASE 162 U/L 40-150 H (BEAKER) (test code = 346) AST (SGOT) (BEAKER) 19 U/L 5-34 Specimen slightly (test code = 353) hemolyzed ALT (SGPT) (BEAKER) 23 U/L 6-55 Specimen slightly (test code = 347) hemolyzed [id number] 07:20:00 Test Item Value Reference Range Interpretation Comments MAGNESIUM (BEAKER) 2.2 mg/dL 1.6-2.6 Specimen slightly (test code = 627) hemolyzed CBC W/PLT COUNT & AUTO [id number] 07:03:00 Test Item Value Reference Range Interpretation Comments WHITE BLOOD CELL COUNT (BEAKER) 6.6 K/ L 3.5-10.5 (test code = 775) RED BLOOD CELL COUNT (BEAKER) 3.67 M/ L 4.63-6.08 L (test code = 761) HEMOGLOBIN (BEAKER) (test code = 10.9 GM/DL 13.7-17.5 L 410) HEMATOCRIT (BEAKER) (test code = 35.3 % 40.1-51.0 L 411) MEAN CORPUSCULAR VOLUME (BEAKER) 96.2 fL 79.0-92.2 H (test code = 753) MEAN CORPUSCULAR HEMOGLOBIN 29.7 pg 25.7-32.2 (BEAKER) (test code = 751) MEAN CORPUSCULAR HEMOGLOBIN CONC 30.9 GM/DL 32.3-36.5 L (BEAKER) (test code = 752) RED CELL DISTRIBUTION WIDTH 14.1 % 11.6-14.4 (BEAKER) (test code = 412) PLATELET COUNT (BEAKER) (test 242 K/CU MM 150-450 code = 756) MEAN PLATELET VOLUME (BEAKER) 9.1 fL 9.4-12.4 L (test code = 754) NUCLEATED RED BLOOD CELLS 0 /100 WBC 0-0 (BEAKER) (test code = 413) NEUTROPHILS RELATIVE PERCENT 70 % (BEAKER) (test code = 429) LYMPHOCYTES RELATIVE PERCENT 17 % (BEAKER) (test code = 430) MONOCYTES RELATIVE PERCENT 10 % (BEAKER) (test code = 431) EOSINOPHILS RELATIVE PERCENT 2 % (BEAKER) (test code = 432) BASOPHILS RELATIVE PERCENT 0 % (BEAKER) (test code = 437) NEUTROPHILS ABSOLUTE COUNT 4.64 K/ L 1.78-5.38 (BEAKER) (test code = 670) LYMPHOCYTES ABSOLUTE COUNT 1.11 K/ L 1.32-3.57 L (BEAKER) (test code = 414) MONOCYTES ABSOLUTE COUNT (BEAKER) 0.64 K/ L 0.30-0.82 (test code = 415) EOSINOPHILS ABSOLUTE COUNT 0.15 K/ L 0.04-0.54 (BEAKER) (test code = 416) BASOPHILS ABSOLUTE COUNT (BEAKER) 0.02 K/ L 0.01-0.08 (test code = 417) IMMATURE GRANULOCYTES-RELATIVE 1 % 0-1 PERCENT (BEAKER) (test code = 2801) [id number] 05:37:00 Test Item Value Reference Range Interpretation Comments PROTIME (BEAKER) (test code = 13.7 seconds 11.9-14.2 759) INR (BEAKER) (test code = 370) 1.1 <=5.9 PARTIAL THROMBOPLASTIN TIME 60.9 seconds 22.5-36.0 H (BEAKER) (test code = 760) Effective 10/20/2018: PT Reference Range ChangeNew: 11.9-14.2 Previous: 11.7- 14.7RECOMMENDED COUMADIN/WARFARIN INR THERAPY RANGESSTANDARD DOSE: 2.0-3.0 Includes: PROPHYLAXIS for venous thrombosis, systemic embolization; TREATMENT for venous thrombosis and/or pulmonary embolus.HIGH RISK: Target INR is2.5-3.5 for patients wiht mechanical heart valves.POCT-GLUCOSE [id number] 21:36:00 Test Item Value Reference Range Interpretation Comments POC-GLUCOSE METER 130 mg/dL 70-110 H TESTED AT [facility] 6720 (BEAKER) (test code = BRENDA RAMIREZ [place] 1538) [address] [id number] 21:31:00 Test Item Value Reference Range Interpretation Comments PROTIME (BEAKER) (test code = 13.0 seconds 11.9-14.2 759) INR (BEAKER) (test code = 370) 1.0 <=5.9 PARTIAL THROMBOPLASTIN TIME 51.3 seconds 22.5-36.0 H (BEAKER) (test code = 760) Effective 10/20/2018: PT Reference Range ChangeNew: 11.9-14.2 Previous: 11.7- 14.7RECOMMENDED COUMADIN/WARFARIN INR THERAPY RANGESSTANDARD DOSE: 2.0-3.0 Includes: PROPHYLAXIS for venous thrombosis, systemic embolization; TREATMENT for venous thrombosis and/or pulmonary embolus.HIGH RISK: Target INR is2.5-3.5 for patients wiht mechanical heart valves.HEPATITIS B SURFACE [id number] 19:20:00 Test Item Value Reference Range Interpretation Comments HEPATITIS B SURFACE ANTIGEN (2) Nonreactive Nonreactive ([place]) (test code = 2585) [id number] 17:47:00 Test Item Value Reference Range Interpretation Comments PROTIME (BEAKER) (test code = 13.2 seconds 11.9-14.2 759) INR (BEAKER) (test code = 370) 1.0 <=5.9 PARTIAL THROMBOPLASTIN TIME 71.3 seconds 22.5-36.0 H (BEAKER) (test code = 760) Effective 10/20/2018: PT Reference Range ChangeNew: 11.9-14.2 Previous: 11.7- 14.7RECOMMENDED COUMADIN/WARFARIN INR THERAPY RANGESSTANDARD DOSE: 2.0-3.0 Includes: PROPHYLAXIS for venous thrombosis, systemic embolization; TREATMENT for venous thrombosis and/or pulmonary embolus.HIGH RISK: Target INR is2.5-3.5 for patients wiht mechanical heart valves.POCT-GLUCOSE [id number] 16:51:00 Test Item Value Reference Range Interpretation Comments POC-GLUCOSE METER 72 mg/dL 70-110 TESTED AT [place] [address] ([facility]) (test code = BRENDA Prieto [facility] [id number] 1538) PLATELET AGGREGATION: FUNCTION [id number] 16:05:00 Test Item Value Reference Range Interpretation Comments WEAK ADP 62 % 60-91 RESULT([facility]) (test code = 2135) PLATELET FUNCTION 60-100% indicates SCREEN INTERP ([facility]) normal platelet (test code = 2173) function [id number] Billie Pollock MD ([facility]) (test code = (electronic signature) 2622) PLATELET COUNT AGG 263 K/CU MM 150-450 ([facility]) (test code = 2656) Platelet Function Screen results may be falsely low with platelet counts<100,000/cu mm.POCT-GLUCOSE [id number] 12:37:00 Test Item Value Reference Range Interpretation Comments POC-GLUCOSE METER 206 mg/dL 70-110 H TESTED AT [place] [address] ([facility]) (test code = [facility] 1538) [id number] HEMOGLOBIN [id number] 11:12:00 Test Item Value Reference Range Interpretation Comments HEMOGLOBIN A1C ([facility]) (test code = 7.4 % 4.3-6.1 H 368) POCT-GLUCOSE [id number] 07:21:00 Test Item Value Reference Range Interpretation Comments POC-GLUCOSE METER 109 mg/dL 70-110 TESTED AT [place] [address] ([facility]) (test code = [facility] 1538) [id number] BASIC METABOLIC [id number] 06:55:00 Test Item Value Reference Range Interpretation Comments SODIUM (BEAKER) 137 meq/L 136-145 (test code = 381) POTASSIUM (BEAKER) 5.1 meq/L 3.5-5.1 Specimen slightly (test code = 379) hemolyzed CHLORIDE (BEAKER) 98 meq/L 98-107 (test code = 382) CO2 (BEAKER) (test 21 meq/L 22-29 L code = 355) BLOOD UREA NITROGEN 87 mg/dL 7-21 H (BEAKER) (test code = 354) CREATININE (BEAKER) 10.84 mg/dL 0.57-1.25 H Specimen slightly (test code = 358) hemolyzed GLUCOSE RANDOM 123 mg/dL 70-105 H (BEAKER) (test code = 652) CALCIUM (BEAKER) 8.7 mg/dL 8.4-10.2 (test code = 697) EGFR (BEAKER) (test 5 mL/min/1.73 ESTIMAT ED GFR IS code = 1092) sq m NOT ACCURATE CREATININE CLEARANCE IN PREDICTING GLOMERULAR FILTRATION RATE . ESTIMATED GFR I S NOT APPLICABLE FOR DIALYSIS PATIEN TS. [id number] 06:53:00 Test Item Value Reference Range Interpretation Comments MAGNESIUM (BEAKER) 2.5 mg/dL 1.6-2.6 Specimen slightly (test code = 627) hemolyzed [id number] 06:38:00 Test Item Value Reference Range Interpretation Comments PROTIME (BEAKER) (test code = 13.9 seconds 11.9-14.2 759) INR (BEAKER) (test code = 370) 1.1 <=5.9 PARTIAL THROMBOPLASTIN TIME 48.5 seconds 22.5-36.0 H (BEAKER) (test code = 760) Effective 10/20/2018: PT Reference Range ChangeNew: 11.9-14.2 Previous: 11.7- 14.7RECOMMENDED COUMADIN/WARFARIN INR THERAPY RANGESSTANDARD DOSE: 2.0-3.0 Includes: PROPHYLAXIS for venous thrombosis, systemic embolization; TREATMENT for venous thrombosis and/or pulmonary embolus.HIGH RISK: Target INR is2.5-3.5 for patients wiht mechanical heart valves.CBC (HEMOGRAM ONLY)2018-11-03 06:34:00 Test Item Value Reference Range Interpretation Comments WHITE BLOOD CELL COUNT (BEAKER) 8.7 K/ L 3.5-10.5 (test code = 775) RED BLOOD CELL COUNT (BEAKER) 3.82 M/ L 4.63-6.08 L (test code = 761) HEMOGLOBIN (BEAKER) (test code = 11.5 GM/DL 13.7-17.5 L 410) HEMATOCRIT (BEAKER) (test code = 36.9 % 40.1-51.0 L 411) MEAN CORPUSCULAR VOLUME (BEAKER) 96.6 fL 79.0-92.2 H (test code = 753) MEAN CORPUSCULAR HEMOGLOBIN 30.1 pg 25.7-32.2 (BEAKER) (test code = 751) MEAN CORPUSCULAR HEMOGLOBIN CONC 31.2 GM/DL 32.3-36.5 L (BEAKER) (test code = 752) RED CELL DISTRIBUTION WIDTH 14.1 % 11.6-14.4 (BEAKER) (test code = 412) PLATELET COUNT (BEAKER) (test 269 K/CU MM 150-450 code = 756) MEAN PLATELET VOLUME (BEAKER) 9.2 fL 9.4-12.4 L (test code = 754) NUCLEATED RED BLOOD CELLS 0 /100 WBC 0-0 (BEAKER) (test code = 413) POCT-GLUCOSE [id number] 00:17:00 Test Item Value Reference Range Interpretation Comments POC-GLUCOSE METER 301 mg/dL 70-110 H Notified R N MD/TESTED (BEAKER) (test code = AT [facility] [address]) [place] [address] [id number] 20:44:00 Test Item Value Reference Range Interpretation Comments PARTIAL THROMBOPLASTIN TIME 34.1 seconds 22.5-36.0 (BEAKER) (test code = 760) Prior to initiating heparinPLATELET [id number] 20:37:00 Test Item Value Reference Range Interpretation Comments PLATELET COUNT (BEAKER) (test 257 K/CU MM 150-450 code = 756) POTASSIUM-STAT [id number] 10:59:00 Test Item Value Reference Range Interpretation Comments POTASSIUM (BEAKER) (test code = 5.3 meq/L 3.6-5.5 379) BASIC METABOLIC [id number] 10:19:00 Test Item Value Reference Range Interpretation Comments SODIUM (BEAKER) 135 meq/L 136-145 L (test code = 381) POTASSIUM (BEAKER) 5.2 meq/L 3.5-5.1 H Specimen slightly (test code = 379) hemolyzed CHLORIDE (BEAKER) 98 meq/L 98-107 (test code = 382) CO2 (BEAKER) (test 21 meq/L 22-29 L code = 355) BLOOD UREA NITROGEN 73 mg/dL 7-21 H (BEAKER) (test code = 354) CREATININE (BEAKER) 9.16 mg/dL 0.57-1.25 H Specimen slightly (test code = 358) hemolyzed GLUCOSE RANDOM 218 mg/dL 70-105 H (BEAKER) (test code = 652) CALCIUM (BEAKER) 8.7 mg/dL 8.4-10.2 (test code = 697) EGFR (BEAKER) (test 6 mL/min/1.73 ESTIMAT ED GFR IS code = 1092) sq m NOT ACCURATE CREATININE CLEARANCE IN PREDICTING GLOMERULAR FILTRATION RATE . ESTIMATED GFR I S NOT APPLICABLE FOR DIALYSIS PATIEN TS. [id number] 10:15:00 Test Item Value Reference Range Interpretation Comments PROTIME (BEAKER) (test code = 13.2 seconds 11.9-14.2 759) INR (BEAKER) (test code = 370) 1.0 <=5.9 PARTIAL THROMBOPLASTIN TIME 36.7 seconds 22.5-36.0 H (BEAKER) (test code = 760) Effective 10/20/2018: PT Reference Range ChangeNew: 11.9-14.2 Previous: 11.7- 14.7RECOMMENDED COUMADIN/WARFARIN INR THERAPY RANGESSTANDARD DOSE: 2.0-3.0 Includes: PROPHYLAXIS for venous thrombosis, systemic embolization; TREATMENT for venous thrombosis and/or pulmonary embolus.HIGH RISK: Target INR is2.5-3.5 for patients wiht mechanical heart valves.CBC W/PLT COUNT & AUTO [id number] 10:02:00 Test Item Value Reference Range Interpretation Comments WHITE BLOOD CELL COUNT (BEAKER) 7.4 K/ L 3.5-10.5 (test code = 775) RED BLOOD CELL COUNT (BEAKER) 3.80 M/ L 4.63-6.08 L (test code = 761) HEMOGLOBIN (BEAKER) (test code = 11.6 GM/DL 13.7-17.5 L 410) HEMATOCRIT (BEAKER) (test code = 37.7 % 40.1-51.0 L 411) MEAN CORPUSCULAR VOLUME (BEAKER) 99.2 fL 79.0-92.2 H (test code = 753) MEAN CORPUSCULAR HEMOGLOBIN 30.5 pg 25.7-32.2 (BEAKER) (test code = 751) MEAN CORPUSCULAR HEMOGLOBIN CONC 30.8 GM/DL 32.3-36.5 L (BEAKER) (test code = 752) RED CELL DISTRIBUTION WIDTH 13.9 % 11.6-14.4 (BEAKER) (test code = 412) PLATELET COUNT (BEAKER) (test 245 K/CU MM 150-450 code = 756) MEAN PLATELET VOLUME (BEAKER) 9.0 fL 9.4-12.4 L (test code = 754) NUCLEATED RED BLOOD CELLS 0 /100 WBC 0-0 (BEAKER) (test code = 413) NEUTROPHILS RELATIVE PERCENT 67 % (BEAKER) (test code = 429) LYMPHOCYTES RELATIVE PERCENT 17 % (BEAKER) (test code = 430) MONOCYTES RELATIVE PERCENT 12 % (BEAKER) (test code = 431) EOSINOPHILS RELATIVE PERCENT 2 % (BEAKER) (test code = 432) BASOPHILS RELATIVE PERCENT 1 % (BEAKER) (test code = 437) NEUTROPHILS ABSOLUTE COUNT 4.97 K/ L 1.78-5.38 (BEAKER) (test code = 670) LYMPHOCYTES ABSOLUTE COUNT 1.25 K/ L 1.32-3.57 L (BEAKER) (test code = 414) MONOCYTES ABSOLUTE COUNT (BEAKER) 0.92 K/ L 0.30-0.82 H (test code = 415) EOSINOPHILS ABSOLUTE COUNT 0.18 K/ L 0.04-0.54 (BEAKER) (test code = 416) BASOPHILS ABSOLUTE COUNT (BEAKER) 0.05 K/ L 0.01-0.08 (test code = 417) IMMATURE GRANULOCYTES-RELATIVE 0 % 0-1 PERCENT (BEAKER) (test code = 2801) MYOCARD IMAGING, MULTI, PHARM, [id number] 16:25:00FINAL REPORT PROCEDURE: MYOCARDIAL PERFUSION SPECT IMAGING (Rest/Stress)CPT CODE: 57823 INDICATION: Renal transplant evaluation CARDIOVASCULAR PROFILE:CAD History: NoneSymptoms: NoneRisk Factors: Diabetes, hypertension, obesity, abnormal lipids, strokeBMI: 36.9 STRESS PROTOCOL:Pharmacologic stress was achieved with a 10-second intravenous infusion of regadenoson 0.4 mg. The radi opharmaceutical was administered 30 seconds after the start of the regadenoson infusion. IMAGING PROTOCOL:10.1 mCi of Tc-99m sestamibi was injected intravenously at rest, and gated SPECT images were obtained. Then, 31.9 mCi of Tc-99m sestamibi was injected intravenously at peak stress, and gated SPECT images were obtained. Image quality is good. REST FINDINGS:HR: 80/minBP: 152/76 mmHgPrelim. EKG: Normal sinus rhythm.Perfusion: There is a moderate severity perfusion defect of the mid to apical anterior segment(s).LV Volume: Normal.RV Volume: Normal. STRESS FINDINGS:HR: 83/min (49% of MPHR)BP: 109/59mmHgPrelim. EKG: No ischemic changes.Symptoms: None (treatment not required).Perfusion: There is a moderate severity perfusion defect of the mid to apical anterior segment(s).Wall Motion: Normal (LVEF 50%) with anterior hypokinesisLV Volume: Not significantly changed from rest. IMPRESSION:1. Abnormal study.2. Abnormal myocardial perfusion. There is a moderate size, moderate severity, partially reversible perfusion abnormality in the mid to apical anterior LV.3. Normal LVEF with anterior hypokinesis4. Normal extracardiac tracer distribution.5. There is no prior study for comparison. Signed: Jose Daniel Grajeda Verified Date/Time: 09/30/2018 16:25:13 Reading Location: [place] [id number] ading Room OCCULT BLOOD, [id number] 17:11:00 Test Item Value Reference Range Interpretation Comments FECAL OCCULT BLOOD (BEAKER) (test Positive Negative A code = 618) OCCULT BLOOD, [id number] 17:02:00 Test Item Value Reference Range Interpretation Comments FECAL OCCULT BLOOD (BEAKER) (test Negative Negative code = 618) POCT-GLUCOSE [id number] 11:41:00 Test Item Value Reference Range Interpretation Comments POC-GLUCOSE METER 161 mg/dL 70-110 H TESTED AT [facility] [address] (BEAKER) (test code = [place] 1538) [address] HEPATITIS B SURFACE [id number] 08:02:00 Test Item Value Reference Range Interpretation Comments HEPATITIS B SURFACE ANTIGEN (2) Nonreactive Nonreactive (BEAKER) (test code = 2585) For chronic HD patients, draw HBsAg with each admission then every 30 days.POCT- GLUCOSE [id number] 07:52:00 Test Item Value Reference Range Interpretation Comments POC-GLUCOSE METER 98 mg/dL 70-110 TESTED AT [facility] [address] (BEAKER) (test code = [place] [address] 1538) BASIC METABOLIC [id number] 05:13:00 Test Item Value Reference Range Interpretation Comments SODIUM (BEAKER) 138 meq/L 136-145 (test code = 381) POTASSIUM (BEAKER) 5.7 meq/L 3.5-5.1 H Specimen moderately (test code = 379) hemolyzed CHLORIDE (BEAKER) 103 meq/L 98-107 (test code = 382) CO2 (BEAKER) (test 19 meq/L 22-29 L code = 355) BLOOD UREA NITROGEN 59 mg/dL 7-21 H (BEAKER) (test code = 354) CREATININE (BEAKER) 10.73 mg/dL 0.57-1.25 H Specimen moderately (test code = 358) hemolyzed GLUCOSE RANDOM 85 mg/dL 70-105 (BEAKER) (test code = 652) CALCIUM (BEAKER) 8.9 mg/dL 8.4-10.2 (test code = 697) EGFR (BEAKER) (test 5 mL/min/1.73 ESTIMAT ED GFR IS code = 1092) sq m NOT ACCURATE CREATININE CLEARANCE IN PREDICTING GLOMERULAR FILTRATION RATE . ESTIMATED GFR I S NOT APPLICABLE FOR DIALYSIS PATIEN TS. CBC (HEMOGRAM ONLY)2016-12-03 05:09:00 Test Item Value Reference Range Interpretation Comments WHITE BLOOD CELL COUNT (BEAKER) 8.8 K/ L 4.0-10.0 (test code = 775) RED BLOOD CELL COUNT (BEAKER) 3.70 M/ L 4.20-5.80 L (test code = 761) HEMOGLOBIN (BEAKER) (test code = 12.3 GM/DL 13.0-16.8 L 410) HEMATOCRIT (BEAKER) (test code = 37.6 % 40.0-50.0 L 411) MEAN CORPUSCULAR VOLUME (BEAKER) 101.0 fL 82.0-98.0 H (test code = 753) MEAN CORPUSCULAR HEMOGLOBIN 33.2 pg 27.0-33.0 H (BEAKER) (test code = 751) MEAN CORPUSCULAR HEMOGLOBIN CONC 32.7 GM/DL 32.0-36.0 (BEAKER) (test code = 752) RED CELL DISTRIBUTION WIDTH 13.3 % 10.3-14.2 (BEAKER) (test code = 412) PLATELET COUNT ([facility]) (test 279 K/CU MM 150-430 code = 756) MEAN PLATELET VOLUME (BEAKER) 6.5 fL 6.5-10.5 (test code = 754) NUCLEATED RED BLOOD CELLS 0 /100 WBC 0-0 (BEAKER) (test code = 413) [id number] 05:03:00 Test Item Value Reference Range Interpretation Comments MAGNESIUM (BEAKER) 2.6 mg/dL 1.6-2.6 Specimen moderately (test code = 627) hemolyzed POCT-GLUCOSE [id number] 23:31:00 Test Item Value Reference Range Interpretation Comments POC-GLUCOSE METER 109 mg/dL 70-110 TESTED AT [place] [address] ([facility]) (test code = JAKELESIA [place] [facility] 1538) [address] [id number] 20:10:00 Test Item Value Reference Range Interpretation Comments ACTIVATED CLOTTING TIME 131 sec TEST ED AT [place] [address] ([facility]) (test code = [place] [facility] [place] [address]) [address] [id number] 18:55:00 Test Item Value Reference Range Interpretation Comments POTASSIUM (BEAKER) (test code = 5.0 meq/L 3.5-5.1 379) [id number] 18:36:00 Test Item Value Reference Range Interpretation Comments ACTIVATED CLOTTING TIME 147 sec TEST ED AT [place] [address] ([facility]) (test code = JAKELESIA [place] [facility] [place] [address]) [address] POCT-GLUCOSE [id number] 16:22:00 Test Item Value Reference Range Interpretation Comments POC-GLUCOSE METER 82 mg/dL 70-110 TESTED AT [place] [address] ([facility]) (test code = [place] [place] [address]38) [id number] 15:40:00 Test Item Value Reference Range Interpretation Comments ACTIVATED CLOTTING TIME 208 sec TEST ED AT [place] [address] ([facility]) (test code = BRENDA Prieto [facility] 441) [address] [id number] 14:31:00 Test Item Value Reference Range Interpretation Comments ACTIVATED CLOTTING TIME 224 sec TEST ED AT [place] [address] ([facility]) (test code = BRENDA Pri[place] [facility] [address]) [address] [id number] 14:31:00 Test Item Value Reference Range Interpretation Comments ACTIVATED CLOTTING TIME 411 sec TEST ED AT [place] [address] ([facility]) (test code = BRENDA Prieto [facility] 441) [address] POCT-GLUCOSE [id number] 13:29:00 Test Item Value Reference Range Interpretation Comments POC-GLUCOSE METER 130 mg/dL 70-110 H TESTED AT [place] [address] ([facility]) (test code = BRENDA Prieot [facility] 1538) [address] POCT-GLUCOSE [id number] 13:01:00 Test Item Value Reference Range Interpretation Comments POC-GLUCOSE METER 32 mg/dL 70-110 LL Notified R Cali CARRILLO/TESTED AT ([facility]) (test code = [address] [address]) [facility] [address] CBC W/PLT COUNT & AUTO [id number] 11:07:00 Test Item Value Reference Range Interpretation Comments WHITE BLOOD CELL COUNT ([facility]) 6.1 K/ L 4.0-10.0 (test code = 775) RED BLOOD CELL COUNT ([facility]) 3.71 M/ L 4.20-5.80 L (test code = 761) HEMOGLOBIN (BEAKER) (test code = 12.4 GM/DL 13.0-16.8 L 410) HEMATOCRIT (AKER) (test code = 36.8 % 40.0-50.0 L 411) MEAN CORPUSCULAR VOLUME (AKER) 99.2 fL 82.0-98.0 H (test code = 753) MEAN CORPUSCULAR HEMOGLOBIN 33.4 pg 27.0-33.0 H (AKER) (test code = 751) MEAN CORPUSCULAR HEMOGLOBIN CONC 33.6 GM/DL 32.0-36.0 (AKER) (test code = 752) RED CELL DISTRIBUTION WIDTH 14.0 % 10.3-14.2 (BEAKER) (test code = 412) PLATELET COUNT (BEAKER) (test 297 K/CU MM 150-430 code = 756) MEAN PLATELET VOLUME (BEAKER) 6.3 fL 6.5-10.5 L (test code = 754) NUCLEATED RED BLOOD CELLS 0 /100 WBC 0-0 (BEAKER) (test code = 413) NEUTROPHILS RELATIVE PERCENT 62 % (BEAKER) (test code = 429) LYMPHOCYTES RELATIVE PERCENT 26 % (BEAKER) (test code = 430) MONOCYTES RELATIVE PERCENT 9 % (BEAKER) (test code = 431) EOSINOPHILS RELATIVE PERCENT 2 % (BEAKER) (test code = 432) BASOPHILS RELATIVE PERCENT 1 % (BEAKER) (test code = 437) NEUTROPHILS ABSOLUTE COUNT 3.83 K/ L 1.80-8.00 (BEAKER) (test code = 670) LYMPHOCYTES ABSOLUTE COUNT 1.59 K/ L 1.48-4.50 (BEAKER) (test code = 414) MONOCYTES ABSOLUTE COUNT (BEAKER) 0.55 K/ L 0.00-1.30 (test code = 415) EOSINOPHILS ABSOLUTE COUNT 0.13 K/ L 0.00-0.50 (BEAKER) (test code = 416) BASOPHILS ABSOLUTE COUNT (BEAKER) 0.05 K/ L 0.00-0.20 (test code = 417) 0.00BASIC METABOLIC [id number] 10:53:00 Test Item Value Reference Range Interpretation Comments SODIUM (BEAKER) 143 meq/L 136-145 (test code = 381) POTASSIUM (BEAKER) 4.5 meq/L 3.5-5.1 (test code = 379) CHLORIDE (BEAKER) 104 meq/L 98-107 (test code = 382) CO2 (BEAKER) (test 24 meq/L 22-29 code = 355) BLOOD UREA NITROGEN 49 mg/dL 7-21 H (BEAKER) (test code = 354) CREATININE (BEAKER) 9.39 mg/dL 0.57-1.25 H (test code = 358) GLUCOSE RANDOM 78 mg/dL 70-105 (BEAKER) (test code = 652) CALCIUM (BEAKER) 9.1 mg/dL 8.4-10.2 (test code = 697) EGFR (BEAKER) (test 6 mL/min/1.73 ESTIMAT ED GFR IS code = 1092) sq m NOT ACCURATE CREATININE CLEARANCE IN PREDICTING GLOMERULAR FILTRATION RATE . ESTIMATED GFR I S NOT APPLICABLE FOR DIALYSIS PATIEN TS. [id number] 10:44:00 Test Item Value Reference Range Interpretation Comments PROTIME (BEAKER) (test code = 13.0 seconds 11.7-14.7 759) INR (BEAKER) (test code = 370) 1.0 <=5.9 PARTIAL THROMBOPLASTIN TIME 29.2 seconds 22.5-36.0 (BEAKER) (test code = 760) RECOMMENDED COUMADIN/WARFARIN INR THERAPY RANGESSTANDARD DOSE: 2.0 - 3.0 Includes: PROPHYLAXIS forvenous thrombosis, systemic embolization; TREATMENT for venous thrombosis and/or pulmonary embolus.HIGH RISK: Target INR is 2.5-3.5 for patients with mechanical heart valves.FLOW PRA CLASS I AND [id number] 11:51:00 Test Item Value Reference Range Interpretation Comments DATE OF SERUM (BEAKER) [id number] (test code = 2289) SERUM # (BEAKER) (test 857084 code = 2290) FLOW PRA CLASS I AND II See Scanned Report (test code = 2421) HLA [id number] 11:51:00 Test Item Value Reference Range Interpretation Comments HLA RESULT (BEAKER) (test See Scanned Report code = 2311) HLA-A AG1 (BEAKER) (test code = 2521) HLA-A AG2 (BEAKER) (test code = 2522) HLA-B AG1 (BEAKER) (test code = 2523) HLA-B AG2 (BEAKER) (test code = 2524) HLA-C AG1 (BEAKER) (test code = 2525) HLA-C AG2 (BEAKER) (test code = 2526) HLA-DR AG1 (BEAKER) (test code = 2518) HLA-DR AG2 (BEAKER) (test code = 2519) HLA-DQ AG1 (BEAKER) (test code = 2514) HLA-DQ AG2 (BEAKER) (test code = 2515) HLA-DRW (BEAKER) (test code = 2583) EBV-VCA ANTIBODY, [id number] 14:35:00 Test Item Value Reference Range Interpretation Comments ROLDAN-THOMAS VCA IGM (BEAKER) (test Negative code = 984) VARICELLA ZOSTER ANTIBODY, [id number] 12:16:00 Test Item Value Reference Range Interpretation Comments VARICELLA ZOSTER IGG (AL) (BEAKER) 1.6 Al (test code = 3197) VARICELLA ZOSTER RESULT INTERPRETATIONS: <=0.8 Al Nonreactive: Presumed non-immune to VZV 0.9-1.0 Al Equivocal >=1.1 Al Reactive: Presumed immune to VZVCYTOMEGALOVIRUS ANTIBODY, [id number] 12:11:00 Test Item Value Reference Range Interpretation Comments CYTOMEGALOVIRUS IGG ANTIBODY Positive (BEAKER) (test code = 790) CYTOMEGALOVIRUS ANTIBODY, [id number] 12:11:00 Test Item Value Reference Range Interpretation Comments CYTOMEGALOVIRUS IGM ANTIBODY Negative (BEAKER) (test code = 816) EBV-VCA ANTIBODY, [id number] 12:11:00 Test Item Value Reference Range Interpretation Comments ROLDAN-THOMAS VCA IGG (BEAKER) (test Positive code = 983) [id number] 11:41:00 Test Item Value Reference Range Interpretation Comments RPR SCREEN (BEAKER) (test code = Nonreactive Nonreactive 420) HEPATITIS B SURFACE [id number] 14:42:00 Test Item Value Reference Range Interpretation Comments HEPATITIS B SURFACE ANTIBODY 9.6 mIU/mL <8.0 H (BEAKER) (test code = 647) HEPATITIS B SURFACE [id number] 14:12:00 Test Item Value Reference Range Interpretation Comments HEPATITIS B SURFACE ANTIGEN (2) Nonreactive Nonreactive (BEAKER) (test code = 2585) HEPATITIS B CORE ANTIBODY, [id number] 14:12:00 Test Item Value Reference Range Interpretation Comments HEPATITIS B CORE IGM ANTIBODY Nonreactive Nonreactive (BEAKER) (test code = 645) HEPATITIS C [id number] 14:12:00 Test Item Value Reference Range Interpretation Comments HEPATITIS C ANTIBODY (BEAKER) Nonreactive Nonreactive (test code = 367) HIV-1 ANTIGEN WITH HIV-1/2 [id number] 14:12:00 Test Item Value Reference Range Interpretation Comments HIV-1 ANTIGEN WITH HIV 1\T\2 Nonreactive Nonreactive ANTIBODY (2) (BEAKER) (test code = 2586) [id number] 14:12:00 Test Item Value Reference Range Interpretation Comments PROSTATE SPECIFIC ANTIGEN (BEAKER) 0.7 ng/mL 0.0-4.0 (test code = 844) COMPREHENSIVE METABOLIC [id number] 13:58:00 Test Item Value Reference Range Interpretation Comments TOTAL PROTEIN 7.3 gm/dL 6.0-8.3 (BEAKER) (test code = 770) ALBUMIN (BEAKER) 3.9 g/dL 3.5-5.0 (test code = 1145) ALKALINE PHOSPHATASE 130 U/L 40-150 (BEAKER) (test code = 346) BILIRUBIN TOTAL 0.3 mg/dL 0.2-1.2 (BEAKER) (test code = 377) SODIUM (BEAKER) (test 135 meq/L 136-145 L code = 381) POTASSIUM (BEAKER) 4.9 meq/L 3.5-5.1 (test code = 379) CHLORIDE (BEAKER) 99 meq/L 98-107 (test code = 382) CO2 (BEAKER) (test 26 meq/L 22-29 code = 355) BLOOD UREA NITROGEN 29 mg/dL 7-21 H (BEAKER) (test code = 354) CREATININE (BEAKER) 7.30 mg/dL 0.57-1.25 H (test code = 358) GLUCOSE RANDOM 176 mg/dL 70-105 H (BEAKER) (test code = 652) CALCIUM (BEAKER) 9.3 mg/dL 8.4-10.2 (test code = 697) AST (SGOT) (BEAKER) 18 U/L 5-34 (test code = 353) ALT (SGPT) (BEAKER) 16 U/L 6-55 (test code = 347) EGFR (BEAKER) (test 8 mL/min/1.73 ESTIMAT ED GFR IS code = 1092) sq m NOT ACCURATE CREATININE CLEARANCE IN PREDICTING GLOMERULAR FILTRATION RATE . ESTIMATED GFR I S NOT APPLICABLE FOR DIALYSIS PATIEN TS. PTH, [id number] 13:52:00 Test Item Value Reference Range Interpretation Comments PARATHYROID HORMONE INTACT 289.5 pg/mL 8.5-72.5 H (BEAKER) (test code = 577) Effective 04/11/2014: Reference Range ChangeNew: 8.5-72.5 Previous: 15.0-90.0 URIC [id number] 13:52:00 Test Item Value Reference Range Interpretation Comments URIC ACID (BEAKER) (test code = 3.9 mg/dL 2.6-7.2 773) [id number] 13:52:00 Test Item Value Reference Range Interpretation Comments PHOSPHORUS (BEAKER) (test code = 3.3 mg/dL 2.3-4.7 604) LIPID [id number] 13:52:00 Test Item Value Reference Range Interpretation Comments TRIGLYCERIDES (BEAKER) (test code = 230 mg/dL 540) CHOLESTEROL (BEAKER) (test code = 141 mg/dL 631) HDL CHOLESTEROL (BEAKER) (test code 29 mg/dL = 976) LDL CHOLESTEROL CALCULATED (BEAKER) 66 mg/dL (test code = 633) Triglyceride Reference Range: Low Risk <150 Borderline 150-199 High Risk 200-499 Very High Risk >=500Cholesterol Reference Range: Low Risk <200 Borderline 200-239 High Risk >240HDL Cholesterol Reference Range: Low Risk >=60 High Risk <40LDL Cholesterol Reference Range: Optimal <100 Near Optimal 100-129 Borderline 130-159 High 160-189 Very High >=190GAMMA GLUTAMYL TRANSFERASE (GGT)[id number] 13:52:00 Test Item Value Reference Range Interpretation Comments GAMMA GLUTAMYL TRANSFERASE (BEAKER) 12 U/L 9-64 (test code = 364) LACTATE DEHYDROGENASE (LDH)2016-10-15 13:52:00 Test Item Value Reference Range Interpretation Comments LACTATE DEHYDROGENASE (BEAKER) (test 161 U/L 125-220 code = 635) HEMOGLOBIN [id number] 13:32:00 Test Item Value Reference Range Interpretation Comments HEMOGLOBIN A1C (BEAKER) (test code = 5.9 % 4.3-6.1 368) CBC W/PLT COUNT & AUTO [id number] 13:32:00 Test Item Value Reference Range Interpretation Comments WHITE BLOOD CELL COUNT (BEAKER) 5.1 K/ L 4.0-10.0 (test code = 775) RED BLOOD CELL COUNT (BEAKER) 3.63 M/ L 4.20-5.80 L (test code = 761) HEMOGLOBIN (BEAKER) (test code = 12.3 GM/DL 13.0-16.8 L 410) HEMATOCRIT (BEAKER) (test code = 37.0 % 40.0-50.0 L 411) MEAN CORPUSCULAR VOLUME (BEAKER) 102.0 fL 82.0-98.0 H (test code = 753) MEAN CORPUSCULAR HEMOGLOBIN 33.8 pg 27.0-33.0 H (BEAKER) (test code = 751) MEAN CORPUSCULAR HEMOGLOBIN CONC 33.1 GM/DL 32.0-36.0 (BEAKER) (test code = 752) RED CELL DISTRIBUTION WIDTH 12.7 % 10.3-14.2 (BEAKER) (test code = 412) PLATELET COUNT (BEAKER) (test 303 K/CU MM 150-430 code = 756) MEAN PLATELET VOLUME (BEAKER) 6.1 fL 6.5-10.5 L (test code = 754) NUCLEATED RED BLOOD CELLS 0 /100 WBC 0-0 (BEAKER) (test code = 413) NEUTROPHILS RELATIVE PERCENT 61 % (BEAKER) (test code = 429) LYMPHOCYTES RELATIVE PERCENT 30 % (BEAKER) (test code = 430) MONOCYTES RELATIVE PERCENT 6 % (BEAKER) (test code = 431) EOSINOPHILS RELATIVE PERCENT 3 % (BEAKER) (test code = 432) BASOPHILS RELATIVE PERCENT 1 % (BEAKER) (test code = 437) NEUTROPHILS ABSOLUTE COUNT 3.13 K/ L 1.80-8.00 (BEAKER) (test code = 670) LYMPHOCYTES ABSOLUTE COUNT 1.51 K/ L 1.48-4.50 (BEAKER) (test code = 414) MONOCYTES ABSOLUTE COUNT (BEAKER) 0.31 K/ L 0.00-1.30 (test code = 415) EOSINOPHILS ABSOLUTE COUNT 0.13 K/ L 0.00-0.50 (BEAKER) (test code = 416) BASOPHILS ABSOLUTE COUNT (BEAKER) 0.03 K/ L 0.00-0.20 (test code = 417) [id number] 13:18:00 Test Item Value Reference Range Interpretation Comments PROTIME (BEAKER) (test code = 13.5 seconds 11.7-14.7 759) INR (BEAKER) (test code = 370) 1.0 <=5.9 PARTIAL THROMBOPLASTIN TIME 30.5 seconds 22.5-36.0 (BEAKER) (test code = 760) RECOMMENDED COUMADIN/WARFARIN INR THERAPY RANGESSTANDARD DOSE: 2.0 - 3.0 Includes: PROPHYLAXIS forvenous thrombosis, systemic embolization; TREATMENT for venous thrombosis and/or pulmonary embolus.HIGH RISK: Target INR is 2.5-3.5 for patients with mechanical heart valves.
[2020-04-02] MEDS ORDERED: GABAPENTIN 300 MG CAP ONE (13:45)
[2020-04-02] MEDS ORDERED: DIAZEPAM 5 MG TABLET ONE (13:45)
[2020-04-02] MEDS ORDERED: MORPHINE 4 MG/ML SYR ONE ×2 (13:46→15:06)
[2020-04-02] MEDS ORDERED: NITROGLYCERIN 1 GM PKT TD ONE (14:30)
[2020-04-02 15:16] LABS: Absolute Lymphocytes (CBC) 0.9 K/uL (0.7-4.9); Basophils % 1.2 % (0-1.3); Hematocrit 37.1 % (39.6-49.0); Lymphocytes % 10.5 % (15.3-44.8); MPV 7.3 fL (7.6-11.3); RBC Red Blood Cell Count 4.19 M/uL (4.33-5.43)
[2020-04-02 15:25] LABS: Protime INR 0.97
[2020-04-02 15:42] LABS: Potassium 4.2 mmol/L (3.5-5.1)
--- NOTE | 2020-04-02 16:01 | EDPHYS ---
Physician Documentation [facility] Name: Shekhar Gambino Age: 55 yrs Sex: Male : 1965 Arrival Date: 04/02/2020 Time: 12:15 Bed 19 Private MD: ED Physician Bereket Palma HPI: 04/02 13:38 This 55 yrs old Male presents to ER via Wheelchair with complaints of Foot snw Pain, Ankle Pain. 13:38 The patient presents with pain, spasm. The complaints affect the right ankle, anterior snw aspect of right ankle and dorsum of right foot. Context: The problem was sustained during dialysis, did not reach dry wt. Onset: The symptoms/episode began/occurred suddenly. Associated signs and symptoms: The patient has no apparent associated signs or symptoms. Treatment prior to arrival includes: no previous treatment. Severity of symptoms: At their worst the symptoms were incapacitating. The patient has not experienced similar symptoms in the past. Historical: - Allergies: 12:30 No Known Allergies; ca1 - PMHx: 16:20 Dialysis; Diabetes - IDDM; Hypertension; High Cholesterol; ll2 - PSHx: 16:20 CABG; ll2 - Immunization history:: Adult Immunizations up to date, Flu vaccine is up to date. - Social history:: Smoking status: Patient denies any tobacco usage or history of. ROS: 13:37 Constitutional: Negative for fever, chills, and weight loss, Eyes: Negative for injury, snw pain, redness, and discharge, ENT: Negative for injury, pain, and discharge, Neck: Negative for injury, pain, and swelling, Cardiovascular: Negative for chest pain, palpitations, and edema, Respiratory: Negative for shortness of breath, cough, wheezing, and pleuritic chest pain, Abdomen/GI: Negative for abdominal pain, nausea, vomiting, diarrhea, and constipation, Back: Negative for injury and pain, : Negative for injury, bleeding, discharge, and swelling, MS/Extremity: Negative for injury and deformity, + severe pain to right ankle Exam: 13:34 Constitutional: This is a well developed, well nourished patient who is awake, alert, snw and in no acute distress. Head/Face: Normocephalic, atraumatic. Eyes: Pupils equal round and reactive to light, extra-ocular motions intact. Lids and lashes normal. Conjunctiva and sclera are non-icteric and not injected. Cornea within normal limits. Periorbital areas with no swelling, redness, or edema. ENT: Nares patent. No nasal discharge, no septal abnormalities noted. Tympanic membranes are normal and external auditory canals are clear. Oropharynx with no redness, swelling, or masses, exudates, or evidence of obstruction, uvula midline. Mucous membranes moist. Neck: Trachea midline, no thyromegaly or masses palpated, and no cervical lymphadenopathy. Supple, full range of motion without nuchal rigidity, or vertebral point tenderness. No Meningismus. Chest/axilla: Normal chest wall appearance and motion. Nontender with no deformity. No lesions are appreciated. Respiratory: Lungs have equal breath sounds bilaterally, clear to auscultation and percussion. No rales, rhonchi or wheezes noted. No increased work of breathing, no retractions or nasal flaring. Abdomen/GI: Soft, non-tender, with normal bowel sounds. No distension or tympany. No guarding or rebound. No evidence of tenderness throughout. Back: No spinal tenderness. No costovertebral tenderness. Full range of motion. Skin: Warm, dry with normal turgor. Normal color with no rashes, no lesions, and no evidence of cellulitis. Neuro: Awake and alert, GCS 15, oriented to person, place, time, and situation. Cranial nerves II-XII grossly intact. Motor strength 5/5 in all extremities. Sensory grossly intact. Cerebellar exam normal. Normal gait. Psych: Awake, alert, with orientation to person, place and time. Behavior, mood, and affect are within normal limits. 13:34 Musculoskeletal/extremity: Extremities: grossly normal except: noted in the right lower extremity: lightening strike like pains to right lower leg/ankle, ROM: no acute changes, Circulation is intact in all extremities. Sensation intact. Compartment Syndrome exam of affected extremity: is normal. Vital Signs: 12:26 BP 154 / 84; Pulse 85; Resp 16 S; Temp 97.2(TE); Pulse Ox 99% on R/A; Weight 99.7 kg ca1 (R); Height 5 ft. 6 in. (167.64 cm) (R); Pain 10/10; 13:00 BP 136 / 67; Pulse 86; Resp 18; Temp 98; Pulse Ox 100% on R/A; ll2 14:14 BP 180 / 80; Pulse 82; Resp 18; Pulse Ox 100% on R/A; ll2 14:30 BP 147 / 77; Pulse 79; Resp 17; Pulse Ox 99% ; ll2 15:00 BP 170 / 83; Pulse 76; Resp 19; Pulse Ox 98% ; ll2 15:30 BP 174 / 85; Pulse 76; Resp 18; Pulse Ox 99% ; ll2 16:00 BP 159 / 86; Pulse 78; Resp 15; Pulse Ox 99% ; ll2 12:26 Body Mass Index 35.48 (99.70 kg, 167.64 cm) ca1 MDM: 13:23 Patient medically screened. snw 16:04 Data reviewed: vital signs, nurses notes. Data interpreted: Pulse oximetry: on room air snw is 100 %. Interpretation: normal. Counseling: I had a detailed discussion with the patient and/or guardian regarding: the historical points, exam findings, and any diagnostic results supporting the discharge/admit diagnosis, lab results, radiology results, the need for outpatient follow up, to return to the emergency department if symptoms worsen or persist or if there are any questions or concerns that arise at home. Special discussion: I have referred the patient to see his PCP for further evaluation of high blood pressure. Based on the history and exam findings, there is no indication for further emergent testing or inpatient evaluation. I discussed with the patient/guardian the need to see the primary care provider for further evaluation of the symptoms. 04/02 14:51 Order name: CBC with Diff; Complete Time: 15:38 snw 04/02 14:51 Order name: Chem 7; Complete Time: 15:49 snw 04/02 14:05 Order name: US LE Artery Uni Ltd snw 04/02 14:51 Order name: Ptt, Activated; Complete Time: 15:38 snw 04/02 14:51 Order name: PT-INR; Complete Time: 15:38 snw 04/02 14:51 Order name: Sed Rate; Complete Time: 15:38 snw Administered Medications: 13:30 Drug: morphine 4 mg Route: IM; Site: right deltoid; jl7 14:00 Follow up: Response: No adverse reaction; Pain is unchanged, physician notified ll2 14:25 Follow up: Response: No adverse reaction ll2 14:25 Follow up: Response: RASS: Alert and Calm (0) ll2 13:30 Drug: Gabapentin 300 mg Route: PO; ll2 14:25 Follow up: Response: No adverse reaction ll2 13:30 Drug: Valium 5 mg Route: PO; ll2 14:25 Follow up: Response: No adverse reaction ll2 14:25 Drug: Nitro-Bid Ointment 2 % 1 inches Route: Transdermal; Site: affected area; ll2 15:00 Follow up: Response: No adverse reaction; No change in condition ll2 15:00 Drug: morphine 4 mg Route: IVP; Site: right hand; ll2 15:17 Follow up: Response: No adverse reaction; Pain is decreased; RASS: Alert and Calm (0) ll2 16:19 Drug: Decadron - Dexamethasone 10 mg Route: IVP; Site: right hand; ll2 16:19 Follow up: Response: No adverse reaction ll2 16:30 Follow up: Response: No adverse reaction ll2 Disposition: 04/03 06:52 Co-signature as Attending Physician, Bereket Palma MD I agree with the assessment and kdr plan of care. Disposition: 04/02/20 16:01 Discharged to Home. Impression: Pain in right lower leg. - Condition is Stable. - Discharge Instructions: Musculoskeletal Pain, Heat Therapy. - Prescriptions for Tylenol- Codeine #3 300-30 mg Oral Tablet - take 2 tablets by ORAL route every 6 hours As needed; 14 tablet. - Medication Reconciliation Form, Thank You Letter, Antibiotic Education, Prescription Opioid Use form. - Follow up: Emergency Department; When: As needed; Reason: Worsening of condition. Follow up: Izabela Lemos MD; When: Tomorrow; Reason: Continuance of care. Signatures: Dispatcher [employer] EDBereket Ramirez MD MD kdr Waters, Shelly, KOBY-C SCREEN PRINTING PRESS OPERATOR-Zoe Muñoz RN RN jl7 Barb Barba RN RN ca1 Nneka King RN RN ll2 Corrections: (The following items were deleted from the chart) 04/02 16:22 12:30 PMHx: Dialysis; ca1 ll2 16:22 12:30 PMHx: Diabetes - IDDM; ca1 ll2 16:22 12:30 PMHx: Hypertension; ca1 ll2 16:22 12:30 PMHx: High Cholesterol; ca1 ll2 16:22 12:30 PSHx: Cholecystectomy; ca1 ll2 16:22 12:30 PSHx: CABG; ca1 ll2 16:23 16:20 Home Meds: gabapentin Oral once daily [Inactive]; ll2 ll2 16:23 16:20 Home Meds: Omeprazole Oral once daily [Inactive]; ll2 ll2 16:23 16:20 Home Meds: midodrine 5 mg Oral tab 2 tabs 3 times per day [Inactive]; ll2 ll2 16:23 16:20 Home Meds: Novolin 70/30 [place] Sub-Q daily [Inactive]; ll2 ll2 16:23 16:20 Home Meds: renvilla binder [Inactive]; ll2 ll2 16:23 16:20 Home Meds: Claritin 10 mg Oral tab 1 tab once daily [Inactive]; ll2 ll2 16:23 16:20 Home Meds: brelinta [Inactive]; ll2 ll2 16:23 16:20 Home Meds: carvedilol oral Oral [Inactive]; ll2 ll2 16:23 16:20 Home Meds: aspirin 81 mg Oral chew 1 tab once daily [Inactive]; ll2 ll2 16:23 16:20 Home Meds: Amitriptyline Oral [Inactive]; ll2 ll2 16:36 16:01 04/02/2020 16:01 Discharged to Home. Impression: Pain in right lower leg. ll2 Condition is Stable. Forms are Medication Reconciliation Form, Thank You Letter, Antibiotic Education, Prescription Opioid Use. Follow up: Emergency Department; When: As needed; Reason: Worsening of condition. Follow up: A Lemos; When: Tomorrow; Reason: Continuance of care. snw
--- NOTE | 2020-04-02 16:01 | ER ---
Nurse's Notes [facility] Name: Shekhar Gambino Age: 55 yrs Sex: Male : 1965 Arrival Date: 04/02/2020 Time: 12:15 Bed 19 Private MD: Diagnosis: Pain in right lower leg Presentation: 04/02 12:26 Chief complaint: Patient states: Pt was dialysis today around 0900 when pt started ca1 having shooting pain on R ankle. Intermittent pain, non-radiating. Denies injury. Coronavirus screen: Client denies travel out of the [place] in the last 14 days. At this time, the client does not indicate any symptoms associated with coronavirus-19. Ebola Screen: Patient negative for fever greater than or equal to 101.5 degrees Fahrenheit, and additional compatible Ebola Virus Disease symptoms Patient denies exposure to infectious person. Patient denies travel to an Ebola-affected area in the 21 days before illness onset. No symptoms or risks identified at this time. Initial Sepsis Screen: Does the patient meet any 2 criteria? No. Patient's initial sepsis screen is negative. Does the patient have a suspected source of infection? No. Patient's initial sepsis screen is negative. Risk Assessment: Do you want to hurt yourself or someone else? Patient reports no desire to harm self or others. Onset of symptoms was April 02, 2020. 12:26 Method Of Arrival: Wheelchair ca1 12:26 Acuity: AZAEL 4 ca1 15:00 Acuity: AZAEL 3 iw Historical: - Allergies: 12:30 No Known Allergies; ca1 - PMHx: 16:20 Dialysis; Diabetes - IDDM; Hypertension; High Cholesterol; ll2 - PSHx: 16:20 CABG; ll2 - Immunization history:: Adult Immunizations up to date, Flu vaccine is up to date. - Social history:: Smoking status: Patient denies any tobacco usage or history of. Screenin:08 Abuse screen: Denies threats or abuse. Nutritional screening: No deficits noted. ll2 Tuberculosis screening: No symptoms or risk factors identified. Fall Risk None identified. Assessment: 13:06 General: Appears in no apparent distress. Behavior is calm, cooperative, appropriate ll2 for age. Pain: Complains of pain in right ankle Pain currently is 10 out of 10 on a pain scale. Neuro: Level of Consciousness is awake, alert, obeys commands, Oriented to person, place, time, situation. Cardiovascular: Capillary refill < 3 seconds Patient's skin is warm and dry. Respiratory: Airway is patent Respiratory effort is even, unlabored, Respiratory pattern is regular, symmetrical. GI: No signs and/or symptoms were reported involving the gastrointestinal system. : No signs and/or symptoms were reported regarding the genitourinary system. EENT: No signs and/or symptoms were reported regarding the EENT system. Derm: Skin is intact, Skin is dry, Skin is normal, Skin temperature is warm. Musculoskeletal: Circulation, motion, and sensation intact. Range of motion: limited in right ankle. 14:15 Reassessment: Patient and/or family updated on plan of care and expected duration. Pain ll2 level reassessed. Patient is alert, oriented x 3, equal unlabored respirations, skin warm/dry/pink. ERP notified of pain unchanged at this time, sister states PCP Dr. Lemos would like to be notified. 15:10 Reassessment: US at bedside. ll2 16:00 Reassessment: Patient and/or family updated on plan of care and expected duration. Pain ll2 level reassessed. Patient is alert, oriented x 3, equal unlabored respirations, skin warm/dry/pink. Vital Signs: 12:26 BP 154 / 84; Pulse 85; Resp 16 S; Temp 97.2(TE); Pulse Ox 99% on R/A; Weight 99.7 kg ca1 (R); Height 5 ft. 6 in. (167.64 cm) (R); Pain 10/10; 13:00 BP 136 / 67; Pulse 86; Resp 18; Temp 98; Pulse Ox 100% on R/A; ll2 14:14 BP 180 / 80; Pulse 82; Resp 18; Pulse Ox 100% on R/A; ll2 14:30 BP 147 / 77; Pulse 79; Resp 17; Pulse Ox 99% ; ll2 15:00 BP 170 / 83; Pulse 76; Resp 19; Pulse Ox 98% ; ll2 15:30 BP 174 / 85; Pulse 76; Resp 18; Pulse Ox 99% ; ll2 16:00 BP 159 / 86; Pulse 78; Resp 15; Pulse Ox 99% ; ll2 12:26 Body Mass Index 35.48 (99.70 kg, 167.64 cm) ca1 ED Course: 12:15 Patient arrived in ED. ag5 12:20 Estefania Seals FNP-C is [facility]. snw 12:20 Bereket Palma MD is Attending Physician. snw 12:29 Triage completed. ca1 12:30 Arm band placed on right wrist. ca1 13:06 Nneka King, RN is Primary Nurse. ll2 13:08 Patient has correct armband on for positive identification. Bed in low position. Call ll2 light in reach. Side rails up X 1. Pulse ox on. NIBP on. 15:01 Initial lab(s) drawn, by me, sent to lab. Inserted saline lock: 20 gauge in right hand, ll2 using aseptic technique. Blood collected. 15:17 [email or web address] In Process Unspecified. EDMS 16:00 Izabela Lemos MD is Referral Physician. snw 16:23 No provider procedures requiring assistance completed. IV discontinued, intact, ll2 bleeding controlled, No redness/swelling at site. Pressure dressing applied. Administered Medications: 13:30 Drug: morphine 4 mg Route: IM; Site: right deltoid; jl7 14:00 Follow up: Response: No adverse reaction; Pain is unchanged, physician notified ll2 14:25 Follow up: Response: No adverse reaction ll2 14:25 Follow up: Response: RASS: Alert and Calm (0) ll2 13:30 Drug: Gabapentin 300 mg Route: PO; ll2 14:25 Follow up: Response: No adverse reaction ll2 13:30 Drug: Valium 5 mg Route: PO; ll2 14:25 Follow up: Response: No adverse reaction ll2 14:25 Drug: Nitro-Bid Ointment 2 % 1 inches Route: Transdermal; Site: affected area; ll2 15:00 Follow up: Response: No adverse reaction; No change in condition ll2 15:00 Drug: morphine 4 mg Route: IVP; Site: right hand; ll2 15:17 Follow up: Response: No adverse reaction; Pain is decreased; RASS: Alert and Calm (0) ll2 16:19 Drug: Decadron - Dexamethasone 10 mg Route: IVP; Site: right hand; ll2 16:19 Follow up: Response: No adverse reaction ll2 16:30 Follow up: Response: No adverse reaction ll2 Outcome: 16:01 Discharge ordered by MD. casillas 16:23 Discharged to home via wheelchair, with family. ll2 16:23 Condition: stable 16:23 Discharge instructions given to patient, family, Instructed on discharge instructions, follow up and referral plans. medication usage, Demonstrated understanding of instructions, follow-up care, medications, Prescriptions given X 1. 16:36 Patient left the ED. ll2 Signatures: Dispatcher [employer] EDMS Estefania Seals, INSTANT PRINTER OPERATOR-C INSTANT PRINTER OPERATOR-Csnw Marilynn Bird RN RN iw Zoe Moreno RN RN jl7 Barb Barba RN RN ca1 Shazia, [place] ag5 Nneka King RN RN ll2 Corrections: (The following items were deleted from the chart) 14:00 13:54 Valium 5 mg PO jl7 ll2 14:01 13:54 Gabapentin 300 mg PO jl7 ll2 16:22 12:30 PMHx: Dialysis; ca1 ll2 16:22 12:30 PMHx: Diabetes - IDDM; ca1 ll2 16:22 12:30 PMHx: Hypertension; ca1 ll2 16:22 12:30 PMHx: High Cholesterol; ca1 ll2 16:22 12:30 PSHx: Cholecystectomy; ca1 ll2 16:22 12:30 PSHx: CABG; ca1 ll2 16:23 16:20 Home Meds: gabapentin Oral once daily [Inactive]; ll2 ll2 16:23 16:20 Home Meds: Omeprazole Oral once daily [Inactive]; ll2 ll2 16:23 16:20 Home Meds: midodrine 5 mg Oral tab 2 tabs 3 times per day [Inactive]; ll2 ll2 16:23 16:20 Home Meds: Novolin 70/30 [place] Sub-Q daily [Inactive]; ll2 ll2 16:23 16:20 Home Meds: renvilla binder [Inactive]; ll2 ll2 16:23 16:20 Home Meds: Claritin 10 mg Oral tab 1 tab once daily [Inactive]; ll2 ll2 16:23 16:20 Home Meds: brelinta [Inactive]; ll2 ll2 16:23 16:20 Home Meds: carvedilol oral Oral [Inactive]; ll2 ll2 16:23 16:20 Home Meds: aspirin 81 mg Oral chew 1 tab once daily [Inactive]; ll2 ll2 16:23 16:20 Home Meds: Amitriptyline Oral [Inactive]; ll2 ll2 19: 16:19 Response: No adverse reaction ll2 ll2 : 19:28 Response: No adverse reaction ll2 ll2 19:30 14:25 Response: No adverse reaction ll2 ll2 19:33 19:32 Reassessment: Patient and/or family updated on plan of care and expected ll2 duration. Pain level reassessed. Patient is alert, oriented x 3, equal unlabored respirations, skin warm/dry/pink. ll2
[2020-04-02] MEDS ORDERED: dexAMETHasone 4 MG/ML VIAL ONE (16:22)
--- NOTE | 2020-04-02 16:40 | RAD REPORT ---
EXAM DESCRIPTION: US - Lower Extremity Artery Uni Ltd - 04/02/2020 3:17 pm CLINICAL HISTORY: PAIN COMPARISON: No comparisons TECHNIQUE: Doppler evaluation of the right lower extremity arterial tree performed. Waveforms and ve locity values were obtained along with visual inspection. FINDINGS: Triphasic or biphasic waveform pattern is seen in the common femoral, superficial femoral and popliteal arteries. No occlusion or focal flow restricting lesion identifiable. No suspicious david ocity or waveform pattern. The posterior tibial and dorsalis pedis arteries show a monophasic wavefor m pattern. No occlusion or focal flow restricting lesion in these vessels. Atherosclerotic changes ar e evident in the norman of the arterial tree.No mass or abnormal fluid collection in the soft tissues. IMPRESSION: Right lower extremity peripheral arterial disease is evident. However, there is no occlu joaquin or focal flow restricting lesion identifiable.
[2020-04-02 20:16] VITALS: TEMP 98
[2020-04-02 20:37] VITALS: O2SAT 99
[2020-04-02 20:38] VITALS: BP 159/86
== END 2020-04-02 16:36 | disposition home or self-care (01) ==
LOC: ER 12:12
DX: M25.571 Pain in right ankle and joints of right foot (principal); M79.661 Pain in right lower leg; I10 Essential (primary) hypertension; Z99.2 Dependence on renal dialysis; Z95.1 Presence of aortocoronary bypass graft
CPT/HCPCS: 85025; 80048; 36415; 85610; 85730; 85652; 93926; 96375; 96372; 96374; 99284; J1100

== ENCOUNTER 2020-08-06 06:12 | Emergency (ER) | payer OTHER ==
--- OUTSIDE RECORDS SUMMARY | 2020-08-06 06:17 | XMS REPORT | Continuity of Care Document ---
:1965 Author Organization [facility] t Address [address] [place] [address] Care Team Providers Name Role Phone Sarita Lemos MD Primary Care Physician Donavon Ogden Attending Clinician Unavailable Angie MYERS Attending Clinician Unavailable Ronald Ruvalcaba Attending Clinician Unavailable Indio Attending Clinician Unavailable Ruel MEDINAP Attending Clinician RADHA Attending Clinician Unavailable ERIC HARDING Attending Clinician Unavailable RADHA Admitting Clinician Unavailable Payers Payer Name Policy Type Policy Effective Date Expiration Date Sour ce Number MEDICAREMEDICARE A [id number] 2009 DINAH Og [id number] 2010 00:00:00 - Medical resentMedicare Center Problems Condition Condition Condition Status Onset Resolution Last Treating Co mments Source Name Details Category Date Date Treatment Clinician Date Coronary Coronary Disease Active DINAH landa artery artery 11-08 Earle - disease disease 00:00: Medical 00 Center S/P CABG x S/P CABG x Disease Active [facility] 4 by 4 by 11-08 Earle Quesada on Dipak on 00:00: Medi yann 11/08/18 [...] in Disease Active [facility] - (end-stage (end-stage 00:00: Me dical renal renal 00 Center disease) disease) Abnormal Abnormal Disease [facility] stress stress 6[facility]11 [facility] - test test 00:00: Medical 00 Center Adenomatou Adenomatou Disease Active [facility] s polyp of s polyp of 1-09 Kailee kes - colon colon 00:00: Medical 00 Center Coronary Coronary Disease Active [facility] artery artery 7-12 [facility] - disease disease 00:00: t & Plan: Medic al involving involving 00 [place]le [facility] [place] at this coronary coronary time. 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 St chronic chronic 5-24 [facility] - kidney kidney 00:00: Medical disease(28 disease(28 00 Ce nter 5.21) 5.21) GERD GERD Disease Active [facility] (gastroeso (gastroeso 5-24 Kailee kes - phageal phageal 00:00: Medical reflux reflux 00 Center disease) disease) Obesity Obesity Disease Active [facility] (BMI (BMI 5-24 Assessmen [facility] - 35.0-39.9 35.0-39.9 00:00: t & Plan: M edical without without 00 He was Center comorbidit comorbidit encourage y) y) d to monitor his intake and exercise as tolerated . Allergies, Adverse Reactions, Alerts Allergy Allergy Status Severity Reaction(s) Onset Inactive Treating Comm ents Source Name Type Date Date Clinician No Known DA Active [facility] Allergie 07-31 [facility] s 00:[facility]: d 00 Medical Center apixaban DA Active [facility] 3-09 [facility] 00:[facility]: d 00 [facility] Center Family History Family Member Diagnosis Comments Start Date Stop Date Source Natural father Hypertension [facility] Natural father Diabetes [facility] Natural father Heart disease [facility] Social History Social Habit Start Date Stop Date Quantity Comments Source Sex Assigned At [facility] Tobacco use and 2019-03-31 2019-03-31 Never used [facility] - exposure 00:00:00 00:00:00 [facility] Alcohol intake 2019-03-31 2019-03-31 Current [facility] - 00:00:00 00:00:00 non-drinker of Medical Ce nter alcohol (finding) Smoking Status Start Date Stop Date Source Never smoker [facility] Medications Ordered Filled Start Stop Current Ordering [...] 20 MG 11:22: daily. Medical capsule 05 [place] melatonin 3 Yes 1mg QD Take [address] mg Tab 7-25 by mouth [facility] - tablet 11:22: nightly. Medical [address] [place] [address] midodrine Yes 10mg Take [address] (PROAMATINE 7-25 by mouth Luke s - ) 10 MG 11:22: every Medical tablet 05 Thursday, Center Thursday, Thursday 30 minutes before dialysis IN ADDITION TO REGULAR 5 MG DOSE. amitriptyli Yes 50mg QD Take [address] ne (ELAVIL) 7-25 by mouth Luke s - 10 MG 11:22: nightly . Medical tablet [address] [place] [address] atorvastati Yes 40mg QD Take [address] n (LIPITOR) 7-25 by mouth Luke s - 40 MG 11:22: daily. Medical tablet 05 Center carvedilol 2019- Yes 3.125mg Take 3.[address] (COREG) 7-25 mg by [facility]ukes - 3.125 MG 11:22: mouth 2 Medica l tablet 05 (two) Center times daily with breakfast and dinner. midodrine 2019 Yes 5mg Q.[id number] Take [address] (PROAMATINE 7-25 [id number] by mouth 3 [facility] - ) 5 MG 11:22: 3D (three) Medical tablet 05 times Center daily. aspirin 81 2019 Yes 81mg QD Take [address] MG EC 7-25 by mouth [facility] - tablet 11:22: daily. [address] epoetin Yes [id number] Inject [address] mey-epbx 6-24 mL (10,000 Luke s - (RETACRIT) 00:00: Units Medica l 10,000 00 total) [place] unit/mL subcutaneo Soln usly 3 injection (three) times a week at bedtime. gabapentin Yes 100mg QD Take [address] (NEURONTIN) 6-23 capsule [facility] - 100 MG 00:00: (100 mg Medical capsule 00 total) by Center mouth daily. insulin Yes 14U Inject [facility] aspart 6-22 0.14 mLs [facility]ukes - protamine-i 00:00: (14 Units M edical nsulin 00 total) [place] aspart subcutaneo (NOVOLOG usly 2 MIX 70/30) [...] s - Test 00:00:00 (procedure) [code = [facility] 95831318] Future Scheduled 2019-06-[address] Divine es - Test 00:00:00 malignant neoplasm of [facility]ica [facility] colon (procedure) [code = 582495644] Future Scheduled 2019-05-[address] Kailee kes - Test 00:00:00 measurement Medical Center (procedure) [code = 93185291] Future Scheduled 2010-09-[address] [...] 00:00:00 examination Medical Center (regime/therapy) [code = 534194888] Future Scheduled 1977 Urine screening for [facility] - Test 00:00:00 protein (procedure) Medical Center [code = 254080459] Future Scheduled [address] [facility] - Test 00:00:00 0-64 YRS (1 of 1 - Medical C enter PPSV23) [code = PNEUMOCOCCAL VACCINE 0-64 YRS (1 of 1 - PPSV23)] Encounters Start End Encounter Admission Attending Care Care Encounter Source Date/Time Date/Time Type Type Clinicians Facility Department ID 2019-07-28 2019-07-28 Office HEBER Lipscomb [id number] 11:24:51 16:32:38 Visit [facility] 350.1.13.21 Y 0.2.7.2.686 [id number] 2018-12-14 2018-12-14 Office HEBER Lipscomb [id number] 11:15:58 13:39:25 Visit [facility] AMBULATOR 350.1.13.21 Y 0.2.7.2.686 [id number] Results Test Description Test Time Test Comments Results Result Comments Source SURG 2020-08-02 14:55:00 Test Item Value Reference Range Interpretation Comme nts SURG RUN (test DATE: 08/02/20 [facility] - LAB PAGE 1 RUN code = TIME: 145 Specimen Inquiry RUN USER: INTERFACE SURG) DION ENT: MATTHEW BLACKMAN LOC: [place] U #: [id number] AGE/SX: 55/M ROOM: RE08/01/20REG DR: Vitaly Cheek MD : 69 BED : DIS: STATUS: [facility] TLOC: SPEC #: [id number] R CARPENTER MINE: 08/01/20 STATUS: KRYSTLE REQ #: [id number] DONALDO: ANABEL DR: Vitaly Cheek MD ENTERED: 08/01/20 SP TYPE: JOHN MARTIR PENG DR: Jorge Lemos MD ORDERED: SURG PATH LVL 4 COPIES TO: Jorge Lemos MD [address] [facility] [address] [address] Vitayl Cheek MD [address] [place] [address] HISTOLOGY: TISSUE ID BLK PCS TING LEV PROCEDU RE DISPOSITION ____ ___ ___ ___ ASCENDING COLON A 1 2 PROCEDURES: SURG PATH LVL 4 (08/01/20-1102) TISSUES: A. ASCENDING COLON - ASCENDING COLON POLYP CLINICAL HISTORY SCREENING FOR MALIGNANT NEOPLASM - Z12.11; Z01.818 CPT CODES CPT CODE(S ): 73442 , , , , , , FINAL DIAGN OSIS Colon, ascending, polypectomy: TUBULAR ADENOMAS GROSS DESCRIPTION Ascendi ng colon polyp. Received in formalin is a villalba polypoid tissue fragment, 0.6 x 0.4 x 0.3 cm. Additionally received are multiple small villalba- brown biopsy fragments, 0.1 - 0.4 cm. Th e polypoid fragment is bisected and entirely submitted as A1, multiple small fragments in A2 and A3. ba/nr Grossing performed at [facility] Pathology, [facility], [address], CONTINUED ON NEXT PAGE RUN DATE: 08/02/20 [facility] PAGE 2 RUN TIME: 1455 Specimen Inquiry RUN USER: INTERFACE SPEC #: [facility]:[id number] PATIENT: MATTHEW BLACKMAN #[id number] (Continued) ------- [facility] (Continued) [place], [place] [address]. Stereotyper: Miguel Brown MICROSCOPIC DESCRIPTION Ascending colon polyp. Sections demonstrate colonic mucosa w ith glands demonstrating crowded, hyperchromatic, pseudostratified nuclei. No evidence of high-grade dysplasia or patricia gnancy is seen. - Signed SIGNATURE ON FILE Juan Vargas Tam 08/02/20 1455 END OF REPORT GLUCOSE BEDSIDE [id number] 09:26:00 Test Item Value Reference Range Interpretation Comments GLUCOSE BEDSIDE TESTING (test code 198 mg/dL 70-110 H = GLUBED) [id number] 07:58:00 Test Item Value Reference Range Interpretation Comments POTASSIUM (test code = K) 4.9 mmol/L 3.4-5.0 N BASIC METABOLIC [id number] 11:52:00 Test Item Value Reference Range Interpretation Comments SODIUM (test code = NA) 131 mmol/L 134-147 L POTASSIUM (test code = K) 5.2 mmol/L 3.4-5.0 H CHLORIDE (test code = CL) 96 mmol/L 100-108 L CARBON DIOXIDE (test code = 24 mmol/L 21-32 N CO2) ANION GAP (test code = GAP) 11.0 GAP calc 4.0-15.0 N GLUCOSE (test code = GLU) 272 MG/DL 70-110 H BLOOD UREA NITROGEN (test code 38 MG/DL 7-18 H = BUN) GLOMERULAR FILTRATION RATE 9 estGFR >60 L (test code = GFR) CREATININE (test code = CREAT) 6.7 MG/DL 0.8-1.3 H CALCIUM (test code = CA) 9.3 MG/DL 8.5-10.1 N COVID 19 INHOUSE [id number] 11:43:00 Test Item Value Reference Range Interpretation Comments COVID 19 INHOUSE AG NEGATIVE Negative Per manu facturer, (test code = negative result s should [id number]) be treated aspr esumptive and, if inconsi stent with clinical signs andsymptoms or necessary for patient man agement, should betested with an alternative mol ecular assay. Negative resultsdo not preclude SA RS-CoV-2 infection and s hould not be usedas the s ole basis for patient man agement decisions. Neg ative results should be considered in t he context of apatient's r ecent exposures, hist ory, presence of cli nicalsigns and symptoms co nsistent with COVID-19. Spec Comments: PRE OPComments to Phleb: PATPROTHROMBIN [id number] 11:29:00 Test Item Value Reference Range Interpretation Comments PT PATIENT (test code = PTP) 10.9 SECONDS 9.3-12.9 N INTERNATIONAL NORMAL RATIO 0.97 INR Unit 0.8-1.2 N (test code = INR) THROMBOPLASTIN TIME [id number] 11:29:00 Test Item Value Reference Range Interpretation Comments THROMBOPLASTIN TIME PARTIAL 32.7 SECONDS 26-35 N (test code = PTT) CBC W/AUTO [id number] 11:17:00 Test Item Value Reference Range Interpretation Comments WHITE BLOOD CELL (test code = 6.3 K/mm3 3.5-11.0 N WBC) RED BLOOD CELL (test code = 4.18 M/mm3 4.70-6.10 L RBC) HEMOGLOBIN (test code = HGB) 11.4 G/DL 12.3-15.9 L HEMATOCRIT (test code = HCT) 39.1 % 35.8-46.7 N MEAN CELL VOLUME (test code = 93.5 Fl 86.3-98.9 N MCV) MEAN CELL HGB (test code = MCH) 27.3 pg 28.9-34.4 L MEAN CELL HGB CONCETRATION 29.2 G/DL 32.1-34.5 L (test code = MCHC) RED CELL DISTRIBUTION WIDTH 16.3 SD 11.5-14.5 H (test code = RDW) PLATELET COUNT (test code = 297 K/mm3 150-450 N PLT) MEAN PLATELET VOLUME (test code 8.50 fL 7.0-9.6 N = MPV) NEUTROPHIL % (test code = NT%) 71.5 % 40-76 N IMMATURE GRANULOCYTE % (test 0.6 % 0.0-5.0 N code = IG%) LYMPHOCYTE % (test code = LY%) 17.2 % 20.5-51.1 L MONOCYTE % (test code = MO%) 7.8 % 1.7-9.3 N EOSINOPHIL % (test code = EO%) 1.9 % 0.0-6.0 N BASOPHIL % (test code = BA%) 1.0 % 0.0-2.0 N NUCLEATED RBC % (test code = 0.0 /100WBC% 0.0-1.0 N NRBC%) NEUTROPHIL # (test code = NT#) 4.5 K/mm3 1.8-7.6 N IMMATURE GRANULOCYTE # (test 0.04 x10 3/uL 0.00-0.03 H code = IG#) LYMPHOCYTE # (test code = LY#) 1.1 K/mm3 0.6-3.0 N MONOCYTE # (test code = MO#) 0.5 K/mm3 0.2-1.5 N EOSINOPHIL # (test code = EO#) 0.1 K/mm3 0.0-0.4 N BASOPHIL # (test code = BA#) 0.1 K/mm3 0.0-0.2 N NUCLEATED RBC # (test code = 0.0 K/mm3 0.00-0.01 N NRBC#) MANUAL DIFF REQUIRED (test code NO DIFF/SCN CRITERIA = MDIFF) MYOCARD IMAGING, MULTI, PHARM, [id number] 16:38:00FINAL REPORT PROCEDURE: MYOCARDIAL PERFUSION SPECT IMAGING (Rest/Stress)CPT CODE: 92988 INDICATION: Evaluation in advance of renal transplant CARDIOVASCULAR PROFILE:CAD History: Known coronary artery disease, coronary stent 2017, aortocoronary bypass, November 08, 2018Symptoms: NoneRisk Factors: Diabetes, hypertension, obesity, hyperlipidemia, stroke, family history of early onset c oronary artery diseaseBMI: 40.2Medications: Aspirin, midodrine, Elavil, Coreg, [...] rhythm, first-degree AV block.Perfusion: Decreased radiotracer uptake inthe anterior apical and apical segments is present.LV Volume: Normal.RV Volume: Normal. STRESS FINDINGS:HR: 88/min (52% of MPHR)BP: 83/46 mmHgPrelim. EKG: No ischemic changes.Symptoms: None (treatment not required).Perfusion: Decreased radiotracer uptake in the anterior apical and apical segments is pr esent.Wall Motion: Normal (LVEF 59%).LV Volume: Not significantly changed from rest. IMPRESSION:1. Abnormal study.2. Abnormal myocardial perfusion. There is a small sized size, moderate severity, fixedperfusion abnormality in the anterior apical and apical [...] and involves the apex. Signed: Jose Daniel Grajedaort Verified Date/Time: 03/31/2019 16:38:15 Reading Location: [place] [id number] [facility] Reading Room POCT-GLUCOSE [id number] 11:51:00 Test Item Value Reference Range Interpretation Comments POC-GLUCOSE METER 136 mg/dL 70-110 H TESTED AT [place] [address] (BEAKER) (test code = [facility] 1538) [address] POCT-GLUCOSE [id number] 08:41:00 Test Item Value Reference Range Interpretation Comments POC-GLUCOSE METER 157 mg/dL 70-110 H TESTED AT [place] [address] (BEAKER) (test code = [facility] 1538) [address] POCT-GLUCOSE [id number] 06:47:00 Test Item Value Reference Range Interpretation Comments POC-GLUCOSE METER 130 mg/dL 70-110 H TESTED AT [place] [address] (BEAKER) (test code = [facility] 1538) [address] BASIC METABOLIC [id number] 05:20:00 Test Item Value Reference Range Interpretation [...] PATIEN TS. CBC W/PLT COUNT & AUTO [id number] 04:42:00 Test Item Value Reference Range Interpretation [...] % 0-1 PERCENT (BEAKER) (test code = 0161) POCT-GLUCOSE [id number] 19:39:00 Test Item Value Reference Range Interpretation Comments POC-GLUCOSE METER 88 mg/dL 70-[address] [facility] 6720 (BEAKER) (test code = [place] [address] 1538) BASIC METABOLIC [id number] 15:34:00 Test Item Value Reference Range Interpretation [...] PATIEN TS. CBC W/PLT COUNT & AUTO [id number] 15:20:00 Test Item Value Reference Range Interpretation [...] PERCENT (BEAKER) (test code = 2801) POCT-GLUCOSE [id number] 12:47:00 Test Item Value Reference Range Interpretation Comments POC-GLUCOSE METER 140 mg/dL 70-110 H TESTED AT [place] [address] ([facility]) (test code = [place] 1538) [address] POCT-GLUCOSE [id number] 08:21:00 Test Item Value Reference Range Interpretation Comments POC-GLUCOSE METER 107 mg/dL 70-110 TESTED AT [place] [address] ([facility]) (test code = [place] 1538) [address] POCT-GLUCOSE [id number] 22:25:00 Test Item Value Reference Range Interpretation Comments POC-GLUCOSE METER 97 mg/dL 70-110 TESTED AT [place] [address] ([facility]) (test code = BRENDA Prieto [facility] [address] 1538) POCT-GLUCOSE [id number] 18:02:00 Test Item Value Reference Range Interpretation Comments POC-GLUCOSE METER 264 mg/dL 70-[address] [facility] 6720 ([facility]) (test code = BRENDA Prieto [facility] 1538) [address] EEG AWAKE AND [id number] 12:26:00Reason for exam:->EncephalopathyDATE OF TEST: 11-11-2018 DATE OF REPORT: 11-11-2018 EEG: BT 19-1114 Start time: 9:31AM Stop time: 9:54AM ICD-10: R41.82 CPT Code: 32665 HISTORY: 53 year old male with CAD [...] epileptiform abnormalities or electrographic seizures recorded. [facility] M.D. Neurophysiology Attending POCT-GLUCOSE [id number] 10:29:00 Test Item Value Reference Range Interpretation Comments POC-GLUCOSE METER 164 mg/dL 70-[address] [facility] 6720 ([facility]) (test code = BRENDA Prieto [facility] 1538) [address] BASIC METABOLIC [id number] 05:28:00 Test Item Value Reference Range Interpretation Comments SODIUM ([facility]) 137 meq/L 136-145 (test code = 381) [...] PATIEN TS. CBC W/PLT COUNT & AUTO [id number] 04:59:00 Test Item Value Reference Range Interpretation [...] PERCENT (BEAKER) (test code = 2801) POCT-GLUCOSE [id number] 21:43:00 Test Item Value Reference Range Interpretation Comments POC-GLUCOSE METER 158 mg/dL 70-110 H TESTED AT [place] [address] ([facility]) (test code = [facility] 1538) [address] POCT-GLUCOSE [id number] 20:10:00 Test Item Value Reference Range Interpretation Comments POC-GLUCOSE METER 132 mg/dL 70-110 H TESTED AT [place] [address] ([facility]) (test code = [facility] 1538) [address] BASIC METABOLIC [id number] 17:58:00 Test Item Value Reference Range Interpretation [...] PATIEN TS. CBC W/PLT COUNT & AUTO [id number] 17:00:00 Test Item Value Reference Range Interpretation [...] (test code = 2801) CT, BRAIN, WITHOUT [id number] 14:50:00Reason for exam:->decreased alertnessWhat is the patient's [...] MDReport Verified Date/Time: 11/10/2018 14:50:39 Reading Location: [facility] C013V Neuro Reading Room BLOOD GAS, [id number] 13:34:00 Test Item Value Reference Range Interpretation [...] mmol/L -2.0-3.0 code = 704) PATIENT TEMPERATURE ([facility]) (test 37.0 C code = 1818) POCT-GLUCOSE [id number] 09:04:00 Test Item Value Reference Range Interpretation Comments POC-GLUCOSE METER 108 mg/dL 70-110 TESTED AT [place] [address] ([facility]) (test code = BRENDA Prieto [facility] 1538) [address] POCT-GLUCOSE [id number] 03:53:00 Test Item Value Reference Range Interpretation Comments POC-GLUCOSE METER 114 mg/dL 70-110 H TESTED AT [place] [address] ([facility]) (test code = BRENDA Prieto [facility] 1538) [address] POCT-GLUCOSE [id number] 20:13:00 Test Item Value Reference Range Interpretation Comments POC-GLUCOSE METER 246 mg/dL 70-110 H TESTED AT [place] [address] ([facility]) (test code = BRENDA Prieto [facility] 1538) [address] POCT-GLUCOSE [id number] 20:06:00 Test Item Value Reference Range Interpretation Comments POC-GLUCOSE METER 198 mg/dL 70-110 H TESTED AT [place] [address] ([facility]) (test code = [facility] Conner [facility] 1538) [address] [id number] 16:20:00 Test Item Value Reference Range Interpretation Comments POTASSIUM ([facility]) (test code = 4.1 meq/L 3.5-5.1 379) Call Nephrology for > 5.2BLOOD GAS, [id number] 16:07:00 Test Item Value Reference Range Interpretation [...] (test code = 1819) 32.0 % POCT-GLUCOSE [id number] 15:58:00 Test Item Value Reference Range Interpretation Comments POC-GLUCOSE METER 182 mg/dL 70-110 H TESTED AT [place] [address] ([facility]) (test code = BRENDA Prieto [facility] 1538) [address] POCT-GLUCOSE [id number] 15:58:00 Test Item Value Reference Range Interpretation Comments POC-GLUCOSE METER 124 mg/dL 70-110 H TESTED AT [place] [address] ([facility]) (test code = BRENDA Prieto [facility] 1538) [address] [id number] 12:51:00 Test Item Value Reference Range Interpretation Comments POTASSIUM (BEAKER) (test code = 3.4 meq/L 3.5-5.1 L 379) Call Nephrology for > 5.2BLOOD GAS, [id number] 12:39:00 Test Item Value Reference Range Interpretation [...] (BEAKER) (test code = 1819) 36.0 % [id number] 10:39:00 Test Item Value Reference Range Interpretation Comments FERRITIN (BEAKER) (test code = 1987 ng/mL 5-275 H 361) POCT-GLUCOSE [id number] 10:38:00 Test Item Value Reference Range Interpretation Comments POC-GLUCOSE METER 116 mg/dL 70-[address] [facility] 6720 (BEAKER) (test code = [place] 1538) [address] IRON, TIBC, % SAT. (WITHOUT FERRITIN)2018-11-09 10:10:00 Test Item Value Reference Range Interpretation Comments IRON (BEAKER) (test code = 547) 33.0 ug/dL 40.0-160.0 L TOTAL IRON BINDING CAPACITY 174 ug/dL 250-450 L (BEAKER) (test code = 769) IRON % SATURATION (2) (BEAKER) 19 % 20-55 L (test code = 2590) [id number] 09:58:00 Test Item Value Reference Range Interpretation Comments POTASSIUM (BEAKER) (test code = 4.9 meq/L 3.5-5.1 379) Call Nephrology for > [id number] 08:15:00 Test Item Value Reference Range Interpretation Comments POTASSIUM (BEAKER) (test code = 5.4 meq/L 3.5-5.1 H 379) Call Nephrology for > 5.2BLOOD GAS, [id number] 07:57:00 Test Item Value Reference Range Interpretation [...] 40.0 % RAD, CHEST, 1 VIEW, NON [id number] 07:53:00while patient is intubated or has chest [...] MDReport Verified Date/Time: 11/09/2018 07:53:31 Reading Location: [facility] Radiology Reading Room POCT-GLUCOSE [id number] 07:10:00 Test Item Value Reference Range Interpretation Comments POC-GLUCOSE METER 118 mg/dL 70-110 H TESTED AT [address] (test code = BRENDA Prieto [facility] 1538) [address] POCT-GLUCOSE [id number] 06:27:00 Test Item Value Reference Range Interpretation Comments POC-GLUCOSE METER 115 mg/dL 70-110 H TESTED AT [address]) (test code = BRENDA Prieto [facility] 1538) [address] [id number] 06:20:00 Test Item Value Reference Range Interpretation Comments ACTIVATED CLOTTING TIME 109 sec TEST ED AT [address]) (test code = BRENDA Prieto [facility] 441) [address] [id number] 06:20:00 Test Item Value Reference Range Interpretation Comments ACTIVATED CLOTTING TIME 417 sec TEST ED AT [place] [address] ([facility]) (test code = BRENDA Prieto [facility] 441) [address] [id number] 06:20:00 Test Item Value Reference Range Interpretation Comments ACTIVATED CLOTTING TIME 461 sec TEST ED AT [place] [address] ([facility]) (test code = BRENDA Prieto [facility] 441) [address] [id number] 06:20:00 Test Item Value Reference Range Interpretation Comments ACTIVATED CLOTTING TIME 516 sec TEST ED AT [place] [address] ([facility]) (test code = [place] 441) [address] [id number] 06:19:00 Test Item Value Reference Range Interpretation Comments ACTIVATED CLOTTING TIME 494 sec TEST ED AT [place] [address] ([facility]) (test code = BRENDA Prieto [place] 441) [address] [id number] 06:19:00 Test Item Value Reference Range Interpretation Comments ACTIVATED CLOTTING TIME 378 sec TEST ED AT [place] [address] ([facility]) (test code = BRENDA Prieto [place] 441) [address] LACTIC ACID, [id number] 06:14:00 Test Item Value Reference Range Interpretation Comments LACTATE BLOOD 0.9 mmol/L 0.5-2.2 Specimen sligh tly ARTERIAL (2) (BEAKER) hemoly zed (test code = 2874) [id number] 06:12:00 Test Item Value Reference Range Interpretation Comments POTASSIUM (BEAKER) (test code = 5.5 meq/L 3.5-5.1 H 379) Call Nephrology for > 5.2OXYGEN SATURATION, [id number] 05:54:00 Test Item Value Reference Range Interpretation Comments O2 SATURATION (MEASURED) (BEAKER) 91.7 % (test code = 1455) BLOOD GAS, [id number] 05:54:00 Test Item Value Reference Range Interpretation [...] (test code = 1819) 50.0 % POCT-GLUCOSE [id number] 05:18:00 Test Item Value Reference Range Interpretation Comments POC-GLUCOSE METER 127 mg/dL 70-[address] [facility] 6720 ([facility]) (test code = BRENDA [place] 1538) [address] POCT-GLUCOSE [id number] 04:30:00 Test Item Value Reference Range Interpretation Comments POC-GLUCOSE METER 191 mg/dL 70-[address] [facility] 6720 ([facility]) (test code = BRENDA Prieto [place] 1538) [address] POCT-GLUCOSE [id number] 04:30:00 Test Item Value Reference Range Interpretation Comments POC-GLUCOSE METER 320 mg/dL 70-110 H Verify [facility] ([facility]) (test code = draw/T ESTED AT [place] 155668) [address] [facility] [address] POCT-GLUCOSE [id number] 04:30:00 Test Item Value Reference Range Interpretation Comments POC-GLUCOSE METER 187 mg/dL 70-110 H TESTED AT [place] [address] ([facility]) (test code = BRENDA Prieto [facility] 1538) [address] POCT-GLUCOSE [id number] 04:30:00 Test Item Value Reference Range Interpretation Comments POC-GLUCOSE METER 132 mg/dL 70-110 H TESTED AT [place] [address] ([facility]) (test code = [facility] Conner [facility] 1538) [address] BASIC METABOLIC [id number] 04:27:00 Test Item Value Reference Range Interpretation [...] DIALYSIS PATIEN TS. Call Nephrology for > [id number] 04:08:00 Test Item Value Reference Range Interpretation Comments POTASSIUM (BEAKER) (test code = 5.2 meq/L 3.5-5.1 H 379) Call Nephrology for > [id number] 04:08:00 Test Item Value Reference Range Interpretation Comments MAGNESIUM (BEAKER) (test code = 2.1 mg/dL 1.6-2.6 627) Call Nephrology for > [id number] 04:08:00 Test Item Value Reference Range Interpretation Comments PHOSPHORUS (BEAKER) (test code = 4.0 mg/dL 2.3-4.7 604) Call Nephrology for > 5.2CBC W/PLT COUNT & AUTO [id number] 03:51:00 Test Item Value Reference Range Interpretation [...] (BEAKER) (test code = 2801) BLOOD GAS, [id number] 03:48:00 Test Item Value Reference Range Interpretation [...] (test code = 1819) 50.0 % CALCIUM, [id number] 03:48:00 Test Item Value Reference Range Interpretation Comments CALCIUM IONIZED (BEAKER) (test 1.23 mmol/L 1.12-1.27 code = 698) PH, BLOOD (BEAKER) (test code = 7.32 1810) [id number] 02:28:00 Test Item Value Reference Range Interpretation Comments POTASSIUM (BEAKER) (test code = 5.9 meq/L 3.5-5.1 H 379) Call Nephrology for > 5.2BLOOD GAS, [id number] 02:07:00 Test Item Value Reference Range Interpretation [...] (test code = 1819) 44.0 % POTASSIUM-STAT [id number] 00:09:00 Test Item Value Reference Range Interpretation Comments POTASSIUM (BEAKER) (test code = 5.8 meq/L 3.6-5.5 H 379) BLOOD GAS, [id number] 00:04:00 Test Item Value Reference Range Interpretation [...] (test code = 1819) 50.0 % GLUCOSE-STAT [id number] 00:04:00 Test Item Value Reference Range Interpretation Comments GLUCOSE RANDOM (BEAKER) (test code 133 mg/dL 70-110 H = 652) HGB/HCT (H&H) - STAT [id number] 00:04:00 Test Item Value Reference Range Interpretation Comments HEMOGLOBIN (BEAKER) (test code = 11.1 g/dL 13.0-16.8 L 410) HEMATOCRIT (BEAKER) (test code = 33.0 % 40.0-50.0 L 411) SODIUM NA-STAT [id number] 00:02:00 Test Item Value Reference Range Interpretation Comments SODIUM (BEAKER) (test code = 381) 136 meq/L 135-148 POCT-GLUCOSE [id number] 00:01:00 Test Item Value Reference Range Interpretation Comments POC-GLUCOSE METER 131 mg/dL 70-110 H TESTED AT [place] [address] (BEAKER) (test code = BRENDA Prieto [facility] 1538) [address] POCT-GLUCOSE [id number] 00:01:00 Test Item Value Reference Range Interpretation Comments POC-GLUCOSE METER 117 mg/dL 70-110 H TESTED AT [place] [address] (BEAKER) (test code = BRENDA Conner [facility] 1538) [address] POCT-GLUCOSE [id number] 00:01:00 Test Item Value Reference Range Interpretation Comments POC-GLUCOSE METER 119 mg/dL 70-110 H TESTED AT [place] [address] ([facility] (test code = BRENDA Prieto [facility] 1538) [address] BASIC METABOLIC [id number] 23:15:00 Test Item Value Reference Range Interpretation [...] S NOT APPLICABLE FOR DIALYSIS PATIEN TS. [id number] 23:14:00 Test Item Value Reference Range Interpretation Comments MAGNESIUM (BEAKER) (test code = 2.1 mg/dL 1.6-2.6 627) LACTIC ACID, [id number] 23:11:00 Test Item Value Reference Range Interpretation Comments LACTATE BLOOD ARTERIAL (2) 1.0 mmol/L 0.5-2.2 (BEAKER) (test code = 2874) BLOOD GAS, [id number] 22:57:00 Test Item Value Reference Range Interpretation [...] (test code = 1819) 50.0 % GLUCOSE-STAT [id number] 22:57:00 Test Item Value Reference Range Interpretation Comments GLUCOSE RANDOM (BEAKER) (test code 126 mg/dL 70-110 H = 652) HGB/HCT (H&H) - STAT [id number] 22:57:00 Test Item Value Reference Range Interpretation Comments HEMOGLOBIN (BEAKER) (test code = 11.2 g/dL 13.0-16.8 L 410) HEMATOCRIT (BEAKER) (test code = 33.0 % 40.0-50.0 L 411) SODIUM NA-STAT [id number] 22:54:00 Test Item Value Reference Range Interpretation Comments SODIUM (BEAKER) (test code = 381) 138 meq/L 135-148 POTASSIUM-STAT [id number] 22:54:00 Test Item Value Reference Range Interpretation Comments POTASSIUM (BEAKER) (test code = 5.4 meq/L 3.6-5.5 379) SODIUM NA-STAT [id number] 21:58:00 Test Item Value Reference Range Interpretation Comments SODIUM (BEAKER) (test code = 381) 138 meq/L 135-148 POTASSIUM-STAT [id number] 21:58:00 Test Item Value Reference Range Interpretation Comments POTASSIUM (BEAKER) (test code = 4.6 meq/L 3.6-5.5 379) BLOOD GAS, [id number] 21:58:00 Test Item Value Reference Range Interpretation [...] (test code = 1819) 30.0 % GLUCOSE-STAT [id number] 21:58:00 Test Item Value Reference Range Interpretation Comments GLUCOSE RANDOM (BEAKER) (test code 121 mg/dL 70-110 H = 652) HGB/HCT (H&H) - STAT [id number] 21:58:00 Test Item Value Reference Range Interpretation Comments HEMOGLOBIN (BEAKER) (test code = 11.3 g/dL 13.0-16.8 L 410) HEMATOCRIT (BEAKER) (test code = 33.0 % 40.0-50.0 L 411) POCT-GLUCOSE [id number] 21:02:00 Test Item Value Reference Range Interpretation Comments POC-GLUCOSE METER 133 mg/dL 70-110 H TESTED AT [place] [address] (BEAKER) (test code = BRENDA Pri[place] 1538) [address] SODIUM NA-STAT [id number] 20:38:00 Test Item Value Reference Range Interpretation Comments SODIUM (BEAKER) (test code = 381) 136 meq/L 135-148 POTASSIUM-STAT [id number] 20:38:00 Test Item Value Reference Range Interpretation Comments POTASSIUM (BEAKER) (test code = 4.4 meq/L 3.6-5.5 379) BLOOD GAS, [id number] 20:38:00 Test Item Value Reference Range Interpretation [...] (test code = 1819) 40.0 % GLUCOSE-STAT [id number] 20:38:00 Test Item Value Reference Range Interpretation Comments GLUCOSE RANDOM (BEAKER) (test code 124 mg/dL 70-110 H = 652) HGB/HCT (H&H) - STAT [id number] 20:38:00 Test Item Value Reference Range Interpretation Comments HEMOGLOBIN (BEAKER) (test code = 10.9 g/dL 13.0-16.8 L 410) HEMATOCRIT (BEAKER) (test code = 32.0 % 40.0-50.0 L 411) POCT-GLUCOSE [id number] 20:17:00 Test Item Value Reference Range Interpretation Comments POC-GLUCOSE METER 139 mg/dL 70-110 H TESTED AT [place] [address] (BEAKER) (test code = BRENDA Pri[place] 1538) [address] POCT-GLUCOSE [id number] 20:17:00 Test Item Value Reference Range Interpretation Comments POC-GLUCOSE METER 154 mg/dL 70-[address] [facility] 6720 (BEAKER) (test code = BR[place] 1538) [address] POCT-GLUCOSE [id number] 20:17:00 Test Item Value Reference Range Interpretation Comments POC-GLUCOSE METER 169 mg/dL 70-[address] [facility] 6720 (BEAKER) (test code = [place] 1538) [address] [id number] 19:51:00 Test Item Value Reference Range Interpretation [...] 2 hours after IV magnesium replacement.BLOOD GAS, [id number] 19:29:00 Test Item Value Reference Range Interpretation [...] (test code = 1819) 60.0 % GLUCOSE-STAT [id number] 19:29:00 Test Item Value Reference Range Interpretation Comments GLUCOSE RANDOM (BEAKER) (test code 142 mg/dL 70-110 H = 652) HGB/HCT (H&H) - STAT [id number] 19:29:00 Test Item Value Reference Range Interpretation Comments HEMOGLOBIN (BEAKER) (test code = 11.3 g/dL 13.0-16.8 L 410) HEMATOCRIT (BEAKER) (test code = 33.0 % 40.0-50.0 L 411) SODIUM NA-STAT [id number] 19:28:00 Test Item Value Reference Range Interpretation Comments SODIUM (BEAKER) (test code = 381) 138 meq/L 135-148 POTASSIUM-STAT [id number] 19:28:00 Test Item Value Reference Range Interpretation Comments POTASSIUM (BEAKER) (test code = 4.2 meq/L 3.6-5.5 379) BASIC METABOLIC [id number] 16:25:00 Test Item Value Reference Range Interpretation [...] S NOT APPLICABLE FOR DIALYSIS PATIEN TS. [id number] 16:22:00 Test Item Value Reference Range Interpretation Comments MAGNESIUM (BEAKER) 2.3 mg/dL 1.6-2.6 Specimen slightly (test code = 627) hemolyzed [id number] 16:22:00 Test Item Value Reference Range Interpretation Comments PHOSPHORUS (BEAKER) 3.3 mg/dL 2.3-4.7 Specimen slightly (test code = 604) hemolyzed LACTIC ACID, [id number] 15:52:00 Test Item Value Reference Range Interpretation Comments LACTATE BLOOD 1.0 mmol/L 0.5-2.2 Specimen sligh tly ARTERIAL (2) (BEAKER) hemoly zed (test code = 2874) [id number] 15:48:00 Test Item Value Reference Range Interpretation [...] mechanical heart valves.CBC W/PLT COUNT & AUTO [id number] 15:31:00 Test Item Value Reference Range Interpretation [...] (BEAKER) (test code = 2801) OXYGEN SATURATION, [id number] 15:30:00 Test Item Value Reference Range Interpretation Comments O2 SATURATION (MEASURED) (BEAKER) 90.0 % (test code = 1455) BLOOD GAS, [id number] 15:30:00 Test Item Value Reference Range Interpretation [...] 100.0 % RAD, CHEST, 1 VIEW, NON [id number] 15:29:00Reason for exam:->Status post CV Surgery post [...] No acute osseous abnormality. Signed: Werner Cantu MDReport Verified Date/Time: 11/08/2018 15:29:07 Reading Location: [facility] Reading Room MBOELASTOGRAPH (TEG)2018-11-08 14:44:00 Test Item [...] 55.0-65.0 L (test code = 1413) PROTHROMBIN [id number] 13:56:00 Test Item Value Reference Range Interpretation [...] INR is2.5-3.5 for patients wiht mechanical heart valves.[id number] 13:56:00 Test Item Value Reference Range Interpretation Comments FIBRINOGEN LEVEL (BEAKER) (test 449 mg/dl 225-434 H code = 658) [id number] 13:56:00 Test Item Value Reference Range Interpretation Comments PARTIAL THROMBOPLASTIN TIME 30.5 seconds 22.5-36.0 (BEAKER) (test code = 760) PLATELET [id number] 13:49:00 Test Item Value Reference Range Interpretation Comments PLATELET COUNT (BEAKER) (test 106 K/CU MM 150-450 L code = 756) BLOOD GAS, [id number] 13:44:00 Test Item Value Reference Range Interpretation [...] (test code = 1819) 100.0 % GLUCOSE-STAT [id number] 13:44:00 Test Item Value Reference Range Interpretation Comments GLUCOSE RANDOM (BEAKER) (test code 176 mg/dL 70-110 H = 652) HGB/HCT (H&H) - STAT [id number] 13:44:00 Test Item Value Reference Range Interpretation Comments HEMOGLOBIN (BEAKER) (test code = 9.3 g/dL 13.0-16.8 L 410) HEMATOCRIT (BEAKER) (test code = 27.0 % 40.0-50.0 L 411) CALCIUM, [id number] 13:44:00 Test Item Value Reference Range Interpretation Comments CALCIUM IONIZED (BEAKER) (test 1.28 mmol/L 1.12-1.27 H code = 698) PH, BLOOD (BEAKER) (test code = 7.36 1810) SODIUM NA-STAT [id number] 13:43:00 Test Item Value Reference Range Interpretation Comments SODIUM (BEAKER) (test code = 381) 137 meq/L 135-148 POTASSIUM-STAT [id number] 13:43:00 Test Item Value Reference Range Interpretation Comments POTASSIUM (BEAKER) (test code = 5.0 meq/L 3.6-5.5 379) BLOOD GAS, [id number] 13:28:00 Test Item Value Reference Range Interpretation [...] code = 1819) 80.0 % SODIUM NA-STAT [id number] 13:28:00 Test Item Value Reference Range Interpretation Comments SODIUM (BEAKER) (test code = 381) 139 meq/L 135-148 GLUCOSE-STAT [id number] 13:28:00 Test Item Value Reference Range Interpretation Comments GLUCOSE RANDOM (BEAKER) (test code 194 mg/dL 70-110 H = 652) HGB/HCT (H&H) - STAT [id number] 13:28:00 Test Item Value Reference Range Interpretation Comments HEMOGLOBIN (BEAKER) (test code = 10.1 g/dL 13.0-16.8 L 410) HEMATOCRIT (BEAKER) (test code = 30.0 % 40.0-50.0 L 411) POTASSIUM-STAT [id number] 13:23:00 Test Item Value Reference Range Interpretation Comments POTASSIUM (BEAKER) (test code = 5.5 meq/L 3.6-5.5 379) BLOOD GAS, [id number] 12:53:00 Test Item Value Reference Range Interpretation [...] code = 1819) 100.0 % SODIUM NA-STAT [id number] 12:53:00 Test Item Value Reference Range Interpretation Comments SODIUM (BEAKER) (test code = 381) 130 meq/L 135-148 L GLUCOSE-STAT [id number] 12:53:00 Test Item Value Reference Range Interpretation Comments GLUCOSE RANDOM (BEAKER) (test code 231 mg/dL 70-110 H = 652) HGB/HCT (H&H) - STAT [id number] 12:53:00 Test Item Value Reference Range Interpretation Comments HEMOGLOBIN (BEAKER) (test code = 8.4 g/dL 13.0-16.8 L 410) HEMATOCRIT (BEAKER) (test code = 25.0 % 40.0-50.0 L 411) POTASSIUM-STAT [id number] 12:53:00 Test Item Value Reference Range Interpretation Comments POTASSIUM (BEAKER) (test code = 6.0 meq/L 3.6-5.5 HH 379) BLOOD GAS, [id number] 12:28:00 Test Item Value Reference Range Interpretation [...] code = 1819) 65.0 % SODIUM NA-STAT [id number] 12:28:00 Test Item Value Reference Range Interpretation Comments SODIUM (BEAKER) (test code = 381) 131 meq/L 135-148 L POTASSIUM-STAT [id number] 12:28:00 Test Item Value Reference Range Interpretation Comments POTASSIUM (BEAKER) (test code = 6.0 meq/L 3.6-5.5 HH 379) GLUCOSE-STAT [id number] 12:28:00 Test Item Value Reference Range Interpretation Comments GLUCOSE RANDOM (BEAKER) (test code 220 mg/dL 70-110 H = 652) HGB/HCT (H&H) - STAT [id number] 12:28:00 Test Item Value Reference Range Interpretation Comments HEMOGLOBIN (BEAKER) (test code = 8.6 g/dL 13.0-16.8 L 410) HEMATOCRIT (BEAKER) (test code = 25.0 % 40.0-50.0 L 411) BLOOD GAS, [id number] 11:39:00 Test Item Value Reference Range Interpretation [...] code = 1819) 65.0 % SODIUM NA-STAT [id number] 11:39:00 Test Item Value Reference Range Interpretation Comments SODIUM (BEAKER) (test code = 381) 132 meq/L 135-148 L POTASSIUM-STAT [id number] 11:39:00 Test Item Value Reference Range Interpretation Comments POTASSIUM (BEAKER) (test code = 5.7 meq/L 3.6-5.5 H 379) GLUCOSE-STAT [id number] 11:39:00 Test Item Value Reference Range Interpretation Comments GLUCOSE RANDOM (BEAKER) (test code 217 mg/dL 70-110 H = 652) HGB/HCT (H&H) - STAT [id number] 11:39:00 Test Item Value Reference Range Interpretation Comments HEMOGLOBIN (BEAKER) (test code = 7.6 g/dL 13.0-16.8 L 410) HEMATOCRIT (BEAKER) (test code = 22.0 % 40.0-50.0 L 411) PLATELET AGGREGATION: FUNCTION [id number] 11:26:00 Test Item Value Reference Range Interpretation Comments WEAK ADP 46 % 60-91 L RESULT(BEAKER) (test code = 2135) PLATELET FUNCTION 40-49% indicates SCREEN INTERP moderate platelet (BEAKER) (test code = dysfunction 2173) [id number] Brody Gaytan MD (BEAKER) (test code = (electronic signature) 2299) PLATELET COUNT AGG 236 K/CU MM 150-450 (BEAKER) (test code = 1943) Platelet Function Screen results may be falsely low with platelet counts<100,000/cu mm.for patients on clopidogrel in past two weeksfor patients on clopidogrel in past two weeksfor patients on clopidogrel in past two weeksPLATELET AGGREGATION: FUNCTION [id number] 11:25:00 Test Item Value Reference Range Interpretation Comments WEAK ADP 97 % 60-91 H RESULT(BEAKER) (test code = 2135) PLATELET FUNCTION 60-100% indicates SCREEN INTERP (BEAKER) normal platelet (test code = 2173) function [id number] Brody Gaytan MD (BEAKER) (test code = (electronic signature) 4912) PLATELET COUNT AGG 206 K/CU MM 150-450 (BEAKER) (test code = 2656) Platelet Function Screen results may be falsely low with platelet counts<100,000/cu mm.SODIUM NA-STAT [id number] 09:03:00 Test Item Value Reference Range Interpretation Comments SODIUM (BEAKER) (test code = 381) 135 meq/L 135-148 POTASSIUM-STAT [id number] 09:03:00 Test Item Value Reference Range Interpretation Comments POTASSIUM (BEAKER) (test code = 4.1 meq/L 3.6-5.5 379) BLOOD GAS, [id number] 09:03:00 Test Item Value Reference Range Interpretation [...] (test code = 1819) 100.0 % GLUCOSE-STAT [id number] 09:03:00 Test Item Value Reference Range Interpretation Comments GLUCOSE RANDOM (BEAKER) (test code 146 mg/dL 70-110 H = 652) HGB/HCT (H&H) - STAT [id number] 09:03:00 Test Item Value Reference Range Interpretation Comments HEMOGLOBIN (BEAKER) (test code = 10.2 g/dL 13.0-16.8 L 410) HEMATOCRIT (BEAKER) (test code = 30.0 % 40.0-50.0 L 411) POCT-GLUCOSE [id number] 07:40:00 Test Item Value Reference Range Interpretation Comments POC-GLUCOSE METER 205 mg/dL 70-[address] [facility] 6720 (BEAKER) (test code = [place] 1538) [address] BASIC METABOLIC [id number] 07:21:00 Test Item Value Reference Range Interpretation [...] S NOT APPLICABLE FOR DIALYSIS PATIEN TS. [id number] 07:11:00 Test Item Value Reference Range Interpretation Comments PHOSPHORUS (BEAKER) (test code = 4.6 mg/dL 2.3-4.7 604) [id number] 07:11:00 Test Item Value Reference Range Interpretation Comments MAGNESIUM (BEAKER) (test code = 1.8 mg/dL 1.6-2.6 627) [id number] 07:01:00 Test Item Value Reference Range Interpretation [...] mechanical heart valves.CBC W/PLT COUNT & AUTO [id number] 06:55:00 Test Item Value Reference Range Interpretation [...] = 2801) RAD, CHEST, 1 VIEW, NON [id number] 01:36:00Reason for exam:->pre opShould this be performed [...] an acute osseous abnormality. Signed: Wanda Pereira MDReport Verified Date/Time: 11/08/2018 01:36:48 Reading Location: [address] Reading Room [id number] 22:17:00 Test Item Value Reference Range Interpretation Comments PARTIAL THROMBOPLASTIN TIME 96.5 seconds 22.5-36.0 H (BEAKER) (test code = 760) PROTHROMBIN [id number] 22:15:00 Test Item Value Reference Range Interpretation Comments PROTIME (BEAKER) (test code = 15.0 seconds 11.9-14.2 H 759) INR (BEAKER) (test code = 370) 1.2 <=5.9 Effective 10/20/2018: PT Reference Range ChangeNew: 11.9-14.2 Previous: 11.7- 14.7RECOMMENDED COUMADIN/WARFARIN INR THERAPY RANGESSTANDARD DOSE: 2.0-3.0 Includes: PROPHYLAXIS for venous thrombosis, systemic embolization; TREATMENT for venous thrombosis and/or pulmonary embolus.HIGH RISK: Target INR is2.5-3.5 for patients wiht mechanical heart valves.POCT-GLUCOSE [id number] 21:47:00 Test Item Value Reference Range Interpretation Comments POC-GLUCOSE METER 202 mg/dL 70-110 H TESTED AT [place] [address] ([facility]) (test code = [facility] 1538) [address] POCT-GLUCOSE [id number] 17:15:00 Test Item Value Reference Range Interpretation Comments POC-GLUCOSE METER 230 mg/dL 70-110 H TESTED AT [place] [address] ([facility]) (test code = [facility] 1538) [address] [id number] 15:36:00 Test Item Value Reference Range Interpretation Comments POTASSIUM (BEAKER) 3.6 meq/L 3.5-5.1 Specimen slightly (test code = 379) hemolyzed POCT-GLUCOSE [id number] 12:00:00 Test Item Value Reference Range Interpretation Comments POC-GLUCOSE METER 145 mg/dL 70-110 H TESTED AT [place] [address] ([facility]) (test code = [facility] 1538) [address] POCT-GLUCOSE [id number] 07:45:00 Test Item Value Reference Range Interpretation Comments POC-GLUCOSE METER 204 mg/dL 70-110 H TESTED AT [place] [address] ([facility]) (test code = [facility] 1538) [address] BASIC METABOLIC [id number] 06:52:00 Test Item Value Reference Range Interpretation [...] S NOT APPLICABLE FOR DIALYSIS PATIEN TS. [id number] 06:44:00 Test Item Value Reference Range Interpretation Comments MAGNESIUM (BEAKER) 2.2 mg/dL 1.6-2.6 Specimen slightly (test code = 627) hemolyzed [id number] 06:44:00 Test Item Value Reference Range Interpretation Comments PHOSPHORUS (BEAKER) 6.6 mg/dL 2.3-4.7 H Specimen slightly (test code = 604) hemolyzed [id number] 06:34:00 Test Item Value Reference Range Interpretation [...] mechanical heart valves.CBC W/PLT COUNT & AUTO [id number] 06:14:00 Test Item Value Reference Range Interpretation [...] PERCENT (BEAKER) (test code = 2801) POCT-GLUCOSE [id number] 22:00:00 Test Item Value Reference Range Interpretation Comments POC-GLUCOSE METER 214 mg/dL 70-[address] [facility] 6720 (BEAKER) (test code = BRENDA [place] 1538) [address] [id number] 18:44:00 Test Item Value Reference Range Interpretation Comments PARTIAL THROMBOPLASTIN TIME 79.0 seconds 22.5-36.0 H (BEAKER) (test code = 760) POCT-GLUCOSE [id number] 16:38:00 Test Item Value Reference Range Interpretation Comments POC-GLUCOSE METER 194 mg/dL 70-110 H TESTED AT [place] [address] ([facility]) [facility] 1538) [address] [id number] 12:50:00 Test Item Value Reference Range Interpretation Comments PARTIAL THROMBOPLASTIN TIME 83.0 seconds 22.5-36.0 H (BEAKER) (test code = 760) POCT-GLUCOSE [id number] 12:31:00 Test Item Value Reference Range Interpretation Comments POC-GLUCOSE METER 270 mg/dL 70-110 H TESTED AT [place] [address] ([facility]) (test code = [facility] 1538) [address] POCT-GLUCOSE [id number] 07:58:00 Test Item Value Reference Range Interpretation Comments POC-GLUCOSE METER 212 mg/dL 70-110 H TESTED AT [place] [address] ([facility]) (test code = [facility] 1538) [id number] CBC W/PLT COUNT & AUTO [id number] 05:56:00 Test Item Value Reference Range Interpretation [...] 0-1 PERCENT (BEAKER) (test code = 2801) [id number] 05:43:00 Test Item Value Reference Range Interpretation Comments PARTIAL THROMBOPLASTIN TIME 43.1 seconds 22.5-36.0 H (BEAKER) (test code = 760) BASIC METABOLIC [id number] 04:36:00 Test Item Value Reference Range Interpretation [...] 358) GLUCOSE RANDOM 204 mg/dL 70-105 H ([facility]) (test code = 652) CALCIUM (BEAKER) 9.1 mg/dL 8.4-10.2 (test code = 697) EGFR ([facility]) (test 8 mL/min/1.73 ESTIMAT ED GFR IS code = 1092) sq m NOT ACCURATE CREATININE CLEARANCE IN PREDICTING GLOMERULAR FILTRATION RATE . ESTIMATED GFR I S NOT APPLICABLE FOR DIALYSIS PATIEN TS. [id number] 04:22:00 Test Item Value Reference Range Interpretation Comments PHOSPHORUS ([facility]) (test code = 5.6 mg/dL 2.3-4.7 H 604) [id number] 04:22:00 Test Item Value Reference Range Interpretation Comments MAGNESIUM ([facility]) (test code = 2.0 mg/dL 1.6-2.6 627) POCT-GLUCOSE [id number] 21:27:00 Test Item Value Reference Range Interpretation Comments POC-GLUCOSE METER 170 mg/dL 70-110 H TESTED AT [place] [address] ([facility]) (test code = BRENDA Prieto [place] [address]238) [id number] POCT-GLUCOSE [id number] 18:29:00 Test Item Value Reference Range Interpretation Comments POC-GLUCOSE METER 315 mg/dL 70-110 H Notified Conner Leiva MD/TESTED ([facility]) (test code = AT [facility] [address] [place], [place] [address] 1538) [facility] 7703 0 POCT-GLUCOSE [id number] 12:33:00 Test Item Value Reference Range Interpretation Comments POC-GLUCOSE METER 78 mg/dL 70-110 TESTED AT [place] [address] ([facility]) (test code = BRENDA Prieto [facility] [address] 1538) POCT-GLUCOSE [id number] 07:53:00 Test Item Value Reference Range Interpretation Comments POC-GLUCOSE METER 177 mg/dL 70-110 H TESTED AT [place] [address] ([facility]) (test code = BRENDA Prieto [facility] 1538) [address] [id number] 05:58:00 Test Item Value Reference Range Interpretation Comments FERRITIN (ALEYDA) (test code = 1219 ng/mL 5-275 H 361) IRON, TIBC, % SAT. (WITHOUT FERRITIN)2018-11-05 05:37:00 Test Item Value Reference Range Interpretation Comments IRON (BEAKER) (test code = 547) 116.0 ug/dL 40.0-160.0 TOTAL IRON BINDING CAPACITY 215 ug/dL 250-450 L (BEAKER) (test code = 769) IRON % SATURATION (2) (BEAKER) 54 % 20-55 (test code = 2590) BASIC METABOLIC [id number] 05:28:00 Test Item Value Reference Range Interpretation [...] S NOT APPLICABLE FOR DIALYSIS PATIEN TS. [id number] 05:24:00 Test Item Value Reference Range Interpretation Comments PHOSPHORUS (BEAKER) (test code = 7.5 mg/dL 2.3-4.7 H 604) [id number] 05:24:00 Test Item Value Reference Range Interpretation Comments MAGNESIUM (BEAKER) (test code = 2.0 mg/dL 1.6-2.6 627) [id number] 05:12:00 Test Item Value Reference Range Interpretation Comments PARTIAL THROMBOPLASTIN TIME 66.3 seconds 22.5-36.0 H (BEAKER) (test code = 760) CBC W/PLT COUNT & AUTO [id number] 05:00:00 Test Item Value Reference Range Interpretation [...] 0-1 PERCENT (BEAKER) (test code = 2801) [id number] 23:22:00 Test Item Value Reference Range Interpretation Comments PARTIAL THROMBOPLASTIN TIME 64.9 seconds 22.5-36.0 H (BEAKER) (test code = 760) POCT-GLUCOSE [id number] 21:01:00 Test Item Value Reference Range Interpretation Comments POC-GLUCOSE METER 113 mg/dL 70-110 H TESTED AT [place] [address] ([facility]) (test code = [facility] 1538) [address] POCT-GLUCOSE [id number] 17:00:00 Test Item Value Reference Range Interpretation Comments POC-GLUCOSE METER 79 mg/dL 70-110 TESTED AT [place] [address] ([facility]) (test code = [facility] [address] 1538) [id number] 15:58:00 Test Item Value Reference Range Interpretation Comments PARTIAL THROMBOPLASTIN TIME 45.3 seconds 22.5-36.0 H (BEAKER) (test code = 760) [id number] 13:49:00 Test Item Value Reference Range Interpretation Comments PARTIAL THROMBOPLASTIN TIME 198.1 seconds 22.5-36.0 HH (BEAKER) (test code = 760) POCT-GLUCOSE [id number] 11:52:00 Test Item Value Reference Range Interpretation Comments POC-GLUCOSE METER 201 mg/dL 70-110 H TESTED AT [place] [address] ([facility]) (test code = [facility] 1538) [address] POCT-GLUCOSE [id number] 07:48:00 Test Item Value Reference Range Interpretation Comments POC-GLUCOSE METER 194 mg/dL 70-110 H TESTED AT [place] [address] ([facility]) (test code = [facility] 1538) [address] BASIC METABOLIC [id number] 07:26:00 Test Item Value Reference Range Interpretation [...] S NOT APPLICABLE FOR DIALYSIS PATIEN TS. [id number] 07:21:00 Test Item Value Reference Range Interpretation Comments PHOSPHORUS (BEAKER) 6.0 mg/dL 2.3-4.7 H Specimen slightly (test code = 604) hemolyzed HEPATIC FUNCTION [id number] 07:21:00 Test Item Value Reference Range Interpretation [...] Specimen slightly (test code = 347) hemolyzed [id number] 07:20:00 Test Item Value Reference Range Interpretation Comments MAGNESIUM (BEAKER) 2.2 mg/dL 1.6-2.6 Specimen slightly (test code = 627) hemolyzed CBC W/PLT COUNT & AUTO [id number] 07:03:00 Test Item Value Reference Range Interpretation [...] 0-1 PERCENT (BEAKER) (test code = 2801) [id number] 05:37:00 Test Item Value Reference Range Interpretation Comments PROTIME (ALEYDA) (test code = 13.7 seconds 11.9-14.2 759) INR (ALEYDA) (test code = 370) 1.1 <=5.9 PARTIAL THROMBOPLASTIN TIME 60.9 seconds 22.5-36.0 H (ALEYDA) (test code = 760) Effective 10/20/2018: PT Reference Range ChangeNew: 11.9-14.2 Previous: 11.7- 14.7RECOMMENDED COUMADIN/WARFARIN INR THERAPY RANGESSTANDARD DOSE: 2.0-3.0 Includes: PROPHYLAXIS for venous thrombosis, systemic embolization; TREATMENT for venous thrombosis and/or pulmonary embolus.HIGH RISK: Target INR is2.5-3.5 for patients wiht mechanical heart valves.POCT-GLUCOSE [id number] 21:36:00 Test Item Value Reference Range Interpretation Comments POC-GLUCOSE METER 130 mg/dL 70-[address] [facility] 6720 (ALEYDA) (test code = BRENDA [place] 1538) [address] [id number] 21:31:00 Test Item Value Reference Range Interpretation Comments PROTIME (ALEYDA) (test code = 13.0 seconds 11.9-14.2 759) INR (ALEYDA) (test code = 370) 1.0 <=5.9 PARTIAL THROMBOPLASTIN TIME 51.3 seconds 22.5-36.0 H (ALEYDA) (test code = 760) Effective 10/20/2018: PT Reference Range ChangeNew: 11.9-14.2 Previous: 11.7- 14.7RECOMMENDED COUMADIN/WARFARIN INR THERAPY RANGESSTANDARD DOSE: 2.0-3.0 Includes: PROPHYLAXIS for venous thrombosis, systemic embolization; TREATMENT for venous thrombosis and/or pulmonary embolus.HIGH RISK: Target INR is2.5-3.5 for patients wiht mechanical heart valves.HEPATITIS B SURFACE [id number] 19:20:00 Test Item Value Reference Range Interpretation Comments HEPATITIS B SURFACE ANTIGEN (2) Nonreactive Nonreactive (ALEYDA) (test code = 2585) [id number] 17:47:00 Test Item Value Reference Range Interpretation Comments PROTIME ([facility]) (test code = 13.2 seconds 11.9-14.2 759) INR ([facility]) (test code = 370) 1.0 <=5.9 PARTIAL THROMBOPLASTIN TIME 71.3 seconds 22.5-36.0 H (AKER) (test code = 760) Effective 10/20/2018: PT Reference Range ChangeNew: 11.9-14.2 Previous: 11.7- 14.7RECOMMENDED COUMADIN/WARFARIN INR THERAPY RANGESSTANDARD DOSE: 2.0-3.0 Includes: PROPHYLAXIS for venous thrombosis, systemic embolization; TREATMENT for venous thrombosis and/or pulmonary embolus.HIGH RISK: Target INR is2.5-3.5 for patients wiht mechanical heart valves.POCT-GLUCOSE [id number] 16:51:00 Test Item Value Reference Range Interpretation Comments POC-GLUCOSE METER 72 mg/dL 70-110 TESTED AT [place] [address] ([facility]) (test code = [place] [address] 1538) PLATELET AGGREGATION: FUNCTION [id number] 16:05:00 Test Item Value Reference Range Interpretation Comments WEAK ADP 62 % 60-91 RESULT([facility]) (test code = 2135) PLATELET FUNCTION 60-100% indicates SCREEN INTERP ([facility]) normal platelet (test code = 2173) function [id number] Billie Pollock MD ([facility]) (test code = (electronic signature) 2622) PLATELET COUNT AGG 263 K/CU MM 150-450 ([facility]) (test code = 2656) Platelet Function Screen results may be falsely low with platelet counts<100,000/cu mm.POCT-GLUCOSE [id number] 12:37:00 Test Item Value Reference Range Interpretation Comments POC-GLUCOSE METER 206 mg/dL 70-[address] [facility] 67 ([facility]) (test code = BRENDA Prieto [facility] 1538) [address] HEMOGLOBIN [id number] 11:12:00 Test Item Value Reference Range Interpretation Comments HEMOGLOBIN A1C ([facility]) (test code = 7.4 % 4.3-6.1 H 368) POCT-GLUCOSE [id number] 07:21:00 Test Item Value Reference Range Interpretation Comments POC-GLUCOSE METER 109 mg/dL 70-[address] [facility] 6720 (BEAKER) (test code = BREN[place] 1538) [address] BASIC METABOLIC [id number] 06:55:00 Test Item Value Reference Range Interpretation [...] S NOT APPLICABLE FOR DIALYSIS PATIEN TS. [id number] 06:53:00 Test Item Value Reference Range Interpretation Comments MAGNESIUM (BEAKER) 2.5 mg/dL 1.6-2.6 Specimen slightly (test code = 627) hemolyzed [id number] 06:38:00 Test Item Value Reference Range Interpretation [...] 0-0 (BEAKER) (test code = 413) POCT-GLUCOSE [id number] 00:17:00 Test Item Value Reference Range Interpretation Comments POC-GLUCOSE METER 301 mg/dL 70-110 H Notified R Cali CARRILLO/TESTED (BEAKER) (test code = AT [facility] 67[address] [place] 2452) [place] 7[address] 0 [id number] 20:44:00 Test Item Value Reference Range Interpretation Comments PARTIAL THROMBOPLASTIN TIME 34.1 seconds 22.5-36.0 (BEAKER) (test code = 760) Prior to initiating heparinPLATELET [id number] 20:37:00 Test Item Value Reference Range Interpretation Comments PLATELET COUNT (BEAKER) (test 257 K/CU MM 150-450 code = 756) POTASSIUM-STAT [id number] 10:59:00 Test Item Value Reference Range Interpretation Comments POTASSIUM (BEAKER) (test code = 5.3 meq/L 3.6-5.5 379) BASIC METABOLIC [id number] 10:19:00 Test Item Value Reference Range Interpretation [...] S NOT APPLICABLE FOR DIALYSIS PATIEN TS. [id number] 10:15:00 Test Item Value Reference Range Interpretation [...] mechanical heart valves.CBC W/PLT COUNT & AUTO [id number] 10:02:00 Test Item Value Reference Range Interpretation [...] code = 2801) MYOCARD IMAGING, MULTI, PHARM, [id number] 16:25:00FINAL REPORT PROCEDURE: MYOCARDIAL PERFUSION SPECT IMAGING (Rest/Stress)CPT CODE: 83346 INDICATION: Renal transplant evaluation CARDIOVASCULAR PROFILE:CAD History: [...] Grajeda Verified Date/Time: 09/30/2018 16:25:13 Reading Location: [address] ading Room OCCULT BLOOD, [id number] 17:11:00 Test Item Value Reference Range Interpretation Comments FECAL OCCULT BLOOD (BEAKER) (test Positive Negative A code = 618) OCCULT BLOOD, [id number] 17:02:00 Test Item Value Reference Range Interpretation Comments FECAL OCCULT BLOOD (BEAKER) (test Negative Negative code = 618) POCT-GLUCOSE [id number] 11:41:00 Test Item Value Reference Range Interpretation Comments POC-GLUCOSE METER 161 mg/dL 70-[address] [facility] 6720 ([facility]) (test code = BRENDA Prieto [facility] 1538) [address] HEPATITIS B SURFACE [id number] 08:02:00 Test Item Value Reference Range Interpretation Comments HEPATITIS B SURFACE ANTIGEN (2) Nonreactive Nonreactive (BEAKER) (test code = 2585) For chronic HD patients, draw HBsAg with each admission then every 30 days.POCT- GLUCOSE [id number] 07:52:00 Test Item Value Reference Range Interpretation Comments POC-GLUCOSE METER 98 mg/dL 70-[address] [facility] 6720 ([facility]) (test code = BRENDA Prieto [facility] [address] 1538) BASIC METABOLIC [id number] 05:13:00 Test Item Value Reference Range Interpretation [...] code = 412) PLATELET COUNT (BEAKER) (test 279 K/CU MM 150-430 code = 756) MEAN PLATELET VOLUME (BEAKER) 6.5 fL 6.5-10.5 (test code = 754) NUCLEATED RED BLOOD CELLS 0 /100 WBC 0-0 (BEAKER) (test code = 413) [id number] 05:03:00 Test Item Value Reference Range Interpretation Comments MAGNESIUM (BEAKER) 2.6 mg/dL 1.6-2.6 Specimen moderately (test code = 627) hemolyzed POCT-GLUCOSE [id number] 23:31:00 Test Item Value Reference Range Interpretation Comments POC-GLUCOSE METER 109 mg/dL 70-110 TESTED AT [place] [address] ([facility]) (test code = BRENDA [place]eto [place] 1538) [address] [id number] 20:10:00 Test Item Value Reference Range Interpretation Comments ACTIVATED CLOTTING TIME 131 sec TEST ED AT [place] [address] ([facility] (test code = BRENDA Prieto [place] 441) [address] [id number] 18:55:00 Test Item Value Reference Range Interpretation Comments POTASSIUM (BEAKER) (test code = 5.0 meq/L 3.5-5.1 379) [id number] 18:36:00 Test Item Value Reference Range Interpretation Comments ACTIVATED CLOTTING TIME 147 sec TEST ED AT [place] [address] ([facility]) (test code = BRENDA Prieto [facility] 441) [address] POCT-GLUCOSE [id number] 16:22:00 Test Item Value Reference Range Interpretation Comments POC-GLUCOSE METER 82 mg/dL 70-110 TESTED AT [place] [address] ([facility]) (test code = BRENDA Prieto [facility] [address] 1538) [id number] 15:40:00 Test Item Value Reference Range Interpretation Comments ACTIVATED CLOTTING TIME 208 sec TEST ED AT [place] [address] ([facility]) (test code = BRENDA Prieto [facility] 441) [address] [id number] 14:31:00 Test Item Value Reference Range Interpretation Comments ACTIVATED CLOTTING TIME 224 sec TEST ED AT [place] [address] ([facility]) (test code = BRENDA Prieto [facility] 441) [address] [id number] 14:31:00 Test Item Value Reference Range Interpretation Comments ACTIVATED CLOTTING TIME 411 sec TEST ED AT [place] [address] ([facility]) (test code = BRENDA Prieto [facility] 441) [address] POCT-GLUCOSE [id number] 13:29:00 Test Item Value Reference Range Interpretation Comments POC-GLUCOSE METER 130 mg/dL 70-110 H TESTED AT [place] [address] ([facility]) (test code = BRENDA Prieto [facility] 1538) [address] POCT-GLUCOSE [id number] 13:01:00 Test Item Value Reference Range Interpretation Comments POC-GLUCOSE METER 32 mg/dL 70-110 LL Notified R Cali CARRILLO/TESTED AT ([facility]) (test code = [address] 1538) [facility] 7703 0 CBC W/PLT COUNT & AUTO [id number] 11:07:00 Test Item Value Reference Range Interpretation Comments WHITE BLOOD CELL COUNT ([facility]) 6.1 K/ L 4.0-10.0 (test code = 775) RED BLOOD CELL COUNT ([facility]) 3.71 M/ L 4.20-5.80 L (test code = 761) HEMOGLOBIN ([facility]) (test code = 12.4 GM/DL 13.0-16.8 L 410) HEMATOCRIT (BEAKER) (test code = 36.8 % 40.0-50.0 L 411) MEAN CORPUSCULAR VOLUME (BEAKER) 99.2 fL 82.0-98.0 H (test code = 753) MEAN CORPUSCULAR HEMOGLOBIN 33.4 pg 27.0-33.0 H (BEAKER) (test code = 751) MEAN CORPUSCULAR HEMOGLOBIN CONC 33.6 GM/DL 32.0-36.0 (BEAKER) (test code = 752) [...] K/ L 0.00-0.20 (test code = 417) 0.00BASI METABOLIC [id number] 10:53:00 Test Item Value Reference Range Interpretation [...] S NOT APPLICABLE FOR DIALYSIS PATIEN TS. [id number] 10:44:00 Test Item Value Reference Range Interpretation [...] mechanical heart valves.FLOW PRA CLASS I AND [id number] 11:51:00 Test Item Value Reference Range Interpretation Comments DATE OF SERUM (BEAKER) 5230531 (test code = 2289) SERUM # (BEAKER) (test 609811 code = 2290) FLOW PRA CLASS I AND II See Scanned Report (test code = 2421) HLA [id number] 11:51:00 Test Item Value Reference Range Interpretation [...] (BEAKER) (test code = 2583) EBV-VCA ANTIBODY, [id number] 14:35:00 Test Item Value Reference Range Interpretation Comments ROLDAN-THOMAS VCA IGM (BEAKER) (test Negative code = 984) VARICELLA ZOSTER ANTIBODY, [id number] 12:16:00 Test Item Value Reference Range Interpretation Comments VARICELLA ZOSTER IGG (AL) (BEAKER) 1.6 Al (test code = 3197) VARICELLA ZOSTER RESULT INTERPRETATIONS: <=0.8 Al Nonreactive: Presumed non-immune to VZV 0.9-1.0 Al Equivocal >=1.1 Al Reactive: Presumed immune to VZVCYTOMEGALOVIRUS ANTIBODY, [id number] 12:11:00 Test Item Value Reference Range Interpretation Comments CYTOMEGALOVIRUS IGG ANTIBODY Positive (BEAKER) (test code = 790) CYTOMEGALOVIRUS ANTIBODY, [id number] 12:11:00 Test Item Value Reference Range Interpretation Comments CYTOMEGALOVIRUS IGM ANTIBODY Negative (BEAKER) (test code = 816) EBV-VCA ANTIBODY, [id number] 12:11:00 Test Item Value Reference Range Interpretation Comments ROLDAN-THOMAS VCA IGG (BEAKER) (test Positive code = 983) [id number] 11:41:00 Test Item Value Reference Range Interpretation Comments RPR SCREEN (BEAKER) (test code = Nonreactive Nonreactive 420) HEPATITIS B SURFACE [id number] 14:42:00 Test Item Value Reference Range Interpretation Comments HEPATITIS B SURFACE ANTIBODY 9.6 mIU/mL <8.0 H (BEAKER) (test code = 647) HEPATITIS B SURFACE [id number] 14:12:00 Test Item Value Reference Range Interpretation Comments HEPATITIS B SURFACE ANTIGEN (2) Nonreactive Nonreactive (BEAKER) (test code = 2585) HEPATITIS B CORE ANTIBODY, [id number] 14:12:00 Test Item Value Reference Range Interpretation Comments HEPATITIS B CORE IGM ANTIBODY Nonreactive Nonreactive (BEAKER) (test code = 645) HEPATITIS C [id number] 14:12:00 Test Item Value Reference Range Interpretation Comments HEPATITIS C ANTIBODY (BEAKER) Nonreactive Nonreactive (test code = 367) HIV-1 ANTIGEN WITH HIV-1/2 [id number] 14:12:00 Test Item Value Reference Range Interpretation Comments HIV-1 ANTIGEN WITH HIV 1\T\2 Nonreactive Nonreactive ANTIBODY (2) (BEAKER) (test code = 2586) [id number] 14:12:00 Test Item Value Reference Range Interpretation Comments PROSTATE SPECIFIC ANTIGEN (BEAKER) 0.7 ng/mL 0.0-4.0 (test code = 844) COMPREHENSIVE METABOLIC [id number] 13:58:00 Test Item Value Reference Range Interpretation [...] NOT APPLICABLE FOR DIALYSIS PATIEN TS. PTH, [id number] 13:52:00 Test Item Value Reference Range Interpretation Comments PARATHYROID HORMONE INTACT 289.5 pg/mL 8.5-72.5 H (BEAKER) (test code = 577) Effective 04/11/2014: Reference Range ChangeNew: 8.5-72.5 Previous: 15.0-90.0 URIC [id number] 13:52:00 Test Item Value Reference Range Interpretation Comments URIC ACID (BEAKER) (test code = 3.9 mg/dL 2.6-7.2 773) [id number] 13:52:00 Test Item Value Reference Range Interpretation Comments PHOSPHORUS (BEAKER) (test code = 3.3 mg/dL 2.3-4.7 604) LIPID [id number] 13:52:00 Test Item Value Reference Range Interpretation [...] 161 U/L 125-220 code = 635) HEMOGLOBIN [id number] 13:32:00 Test Item Value Reference Range Interpretation Comments HEMOGLOBIN A1C (BEAKER) (test code = 5.9 % 4.3-6.1 368) CBC W/PLT COUNT & AUTO [id number] 13:32:00 Test Item Value Reference Range Interpretation [...] K/ L 0.00-0.20 (test code = 417) [id number] 13:18:00 Test Item Value Reference Range Interpretation [...]
[2020-08-06] MEDS ORDERED: TRAMADOL HCL 50 MG TAB ONE (06:56)
--- NOTE | 2020-08-06 07:53 | RAD REPORT ---
EXAM DESCRIPTION: CT - Thorax Wo Con - 08/06/2020 7:22 am CLINICAL HISTORY: PAIN, fall with left-sided chest pain/rib pain COMPARISON: Chest Single View dated 04/28/2016 TECHNIQUE: Axial 5 mm thick images of the chest were obtained without IV contrast. All CT scans are performed using dose optimization technique as appropriate and may include automated exposure control or mA/KV adjustment according to patient size. FINDINGS: Trace amount of pleural fluid and slight pleural thickening seen in the left base. There i s parenchymal opacification in the left base. No comparison CT chest imaging available. The 2016 sing le-view chest did not show evidence for left base pleural or parenchymal opacification. Patient has u ndergone a sternotomy since the prior examination. There is some patchy ground-glass airspace opacifi cation in the left upper lobe. Additional parenchymal stranding seen in the mid left lung field. No p neumothorax. No abnormal mediastinal or hilar masses or lymphadenopathy seen. No gross aortic or pulmonary artery finding suspected. Sternotomy wires are in place new from the comparison chest film. No pericardial effusion. Nondisplaced fractures of the left fourth and fifth ribs are noted. No scapula fracture. Shoulder adrián nt is not adequately visualized. IMPRESSION: Nondisplaced lateral left fourth and fifth rib fractures. Left upper lung field patchy airspace opacification is probably pulmonary contusion. Lower left lung field parenchymal opacification with trace pleural fluid and pleural thickening favor ed to be chronic. These areas are distant from the rib fractures and not classically pulmonary contus ion in appearance. Left base findings are potentially but unlikely infiltrate and/or atelectasis related. No indication that the patient had any acute respiratory symptoms at the time of the fall.
--- NOTE | 2020-08-06 08:41 | EDPHYS ---
Physician Documentation [facility] Name: Shekhar Gambino Age: 55 yrs Sex: Male : 1965 Arrival Date: 08/06/2020 Time: 06:16 Bed 8 Private MD: ED Physician Johann Gary HPI: 08/06 06:38 This 55 yrs old Male presents to ER via Wheelchair with complaints of Fall tw4 Injury. 06:38 Details of fall: The patient fell from an upright position, while walking. Onset: The tw4 symptoms/episode began/occurred 2 day(s) ago. Associated injuries: The patient sustained anterior aspect of left shoulder, anterior aspect of left upper chest, left lateral anterior chest and left breast, contusion, decreased range of motion. Severity of symptoms: At their worst the symptoms were moderate, in the emergency department the symptoms are unchanged. The patient has not experienced similar symptoms in the past. Historical: - Allergies: 06:30 Eliquis; ea - PMHx: 06:30 Hypertension; High Cholesterol; Dialysis; Diabetes - IDDM; ea - PSHx: 06:30 CABG; ea - Immunization history:: Adult Immunizations up to date. - Social history:: Smoking status: Patient denies any tobacco usage or history of. ROS: 06:38 Constitutional: Negative for fever, chills, and weight loss, Eyes: Negative for injury, tw4 pain, redness, and discharge, Respiratory: Negative for shortness of breath, cough, wheezing, and pleuritic chest pain, Abdomen/GI: Negative for abdominal pain, nausea, vomiting, diarrhea, and constipation, Back: Negative for injury and pain. 06:38 Skin: Negative for injury, rash, and discoloration, Neuro: Negative for headache, weakness, numbness, tingling, and seizure, Psych: Negative for depression, anxiety, suicide ideation, homicidal ideation, and hallucinations. 06:38 Cardiovascular: Positive for chest pain, Negative for edema, orthopnea, palpitations. 06:38 MS/extremity: Positive for injury or acute deformity, decreased range of motion, pain, tenderness. Exam: 06:38 Constitutional: This is a well developed, well nourished patient who is awake, alert, tw4 and in no acute distress. Head/Face: Normocephalic, atraumatic. Cardiovascular: Regular rate and rhythm with a normal S1 and S2. No gallops, murmurs, or rubs. Normal PMI, no JVD. No pulse deficits. Respiratory: Lungs have equal breath sounds bilaterally, clear to auscultation and percussion. No rales, rhonchi or wheezes noted. No increased work of breathing, no retractions or nasal flaring. Abdomen/GI: Soft, non-tender, with normal bowel sounds. No distension or tympany. No guarding or rebound. No evidence of tenderness throughout. 06:38 Chest/axilla: Inspection: normal, Palpation: tenderness, that is moderate, of the anterior aspect of left upper chest, left lateral anterior chest and left breast, that totally reproduces the patient's complaints. 06:38 Musculoskeletal/extremity: Extremities: noted in the anterior aspect of left shoulder: decreased ROM, pain, ROM: Vital Signs: 06:26 BP 138 / 85; Pulse 95; Resp 19; Temp 98; Pulse Ox 98% ; Weight 99.34 kg; Height 5 ft. 5 ea in. (165.10 cm); Pain 8/10; 09:10 BP 142 / 89; Pulse 91; Resp 18; Temp 97.9; Pulse Ox 97% on R/A; ph 06:26 Body Mass Index 36.44 (99.34 kg, 165.10 cm) ea MDM: 06:25 Patient medically screened. tw4 08:37 Differential diagnosis: contusion, fracture, multiple trauma, sprain, . Data reviewed: [facility] vital signs, nurses notes, radiologic studies, CT scan, plain films. 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 Test interpretation: by ED physician or midlevel provider: plain radiologic studies. Counseling: I had a detailed discussion with the patient and/or guardian regarding: the historical points, exam findings, and any diagnostic results supporting the discharge/admit diagnosis, radiology results, the need for outpatient follow up, for definitive care, a general surgeon. 08/06 06:29 Order name: CT Chest Wo Con; Complete Time: 08:29 [facility] 08/06 06:29 Order name: Shoulder Left (2 View) XRAY [facility] 08/06 08:27 Order name: INCENTIVE SPIROMETRY [facility] 08/06 07:52 Order name: Sling; Complete Time: 09:08 [facility] 08/06 07:52 Order name: Ice pack; Complete Time: 09:08 [facility] Administered Medications: 06:41 Drug: traMADol 50 mg Route: PO; jb4 07:30 Follow up: Response: No adverse reaction; Pain is unchanged, physician notified ph 09:00 Drug: Ely 10 mg-325 mg 1 tabs Route: PO; ph 09:08 Follow up: Response: No adverse reaction; Medication administered at discharge. ph 09:06 Not Given (Duplicate Order): Zofran (Ondansetron) 4 mg IVP once; over 2 minutes ph 09:07 Drug: Zofran (Ondansetron) 4 mg Route: PO; ph 09:08 Follow up: Response: No adverse reaction; Medication administered at discharge. ph Disposition: 08/06/20 08:41 Discharged to Home. Impression: Multiple fractures of ribs, left side, Contusion of lung - left upper, Fall (on)(from) sidewalk curb, End stage renal disease - on HD, M,W,F. - Condition is Stable. - Discharge Instructions: Rib Fracture, Incentive Spirometer, Dialysis, Rib Fracture, Avmw-ru-Jala, Dialysis Diet. - Prescriptions for Tylenol- Codeine #3 300-30 mg Oral Tablet - take 2 tablets by ORAL route every 4-6 hours As needed; 24 tablet. - Medication Reconciliation Form, Thank You Letter, Antibiotic Education, Prescription Opioid Use form. - Follow up: Private Physician; When: Upon discharge from the Emergency Department; Reason: Continuance of care, Re-evaluation by your physician. Follow up: Genaro Guerra MD; When: 1 - 2 days; Reason: Recheck today's complaints, Re-evaluation by your physician. Follow up: Jerome Kulkarni MD; When: Upon discharge from the Emergency Department; Reason: Recheck today's complaints, Continuance of care, Re-evaluation by your physician. - Problem is new. - Symptoms have improved. Signatures: Dispatcher [employer] Johann Clarke MD MD cha Hall, Patricia, RN RN Leroy Ratliff RN RN jb4 Jessica Rowley RN RN ea Wadley, Terrence, MD MD tw4 Corrections: (The following items were deleted from the chart) 09:12 08:41 08/06/2020 08:41 Discharged to Home. Impression: Multiple fractures of ribs, left ph side; Contusion of lung - left upper; Fall (on)(from) sidewalk curb; End stage renal disease - on HD, M,W,F. Condition is Stable. Forms are Medication Reconciliation Form, Thank You Letter, Antibiotic Education, Prescription Opioid Use. Follow up: Private Physician; When: Upon discharge from the Emergency Department; Reason: Continuance of care, Re-evaluation by your physician. Follow up: Genaro Guerra; When: 1 - 2 days; Reason: Recheck today's complaints, Re-evaluation by your physician. Follow up: Jerome Kulkarni; When: Upon discharge from the Emergency Department; Reason: Recheck today's complaints, Continuance of care, Re-evaluation by your physician. Problem is new. Symptoms have improved. vivienne
--- NOTE | 2020-08-06 08:41 | ER ---
Nurse's Notes [facility] Name: Shekhar Gambino Age: 55 yrs Sex: Male : 1965 Arrival Date: 08/06/2020 Time: 06:16 Bed 8 Private MD: Diagnosis: Multiple fractures of ribs, left side;Contusion of lung-left upper;Fall (on)(from) sidewalk curb;End stage renal disease-on HD, M,W,F Presentation: 08/06 06:26 Chief complaint: Patient states: Reports he fell at [facility] on Thursday, reports refused ea to be seen that day, states his left side of his ribs, shoulder and hip hurt from the fall. Coronavirus screen: At this time, the client does not indicate any symptoms associated with coronavirus-19. Ebola Screen: No symptoms or risks identified at this time. Initial Sepsis Screen: Does the patient meet any 2 criteria? No. Patient's initial sepsis screen is negative. Does the patient have a suspected source of infection? No. Patient's initial sepsis screen is negative. Risk Assessment: Do you want to hurt yourself or someone else? Patient reports no desire to harm self or others. Onset of symptoms was August 06, 2020. 06:26 Method Of Arrival: Wheelchair ea 06:26 Acuity: AZAEL 3 ea Historical: - Allergies: 06:30 Eliquis; ea - PMHx: 06:30 Hypertension; High Cholesterol; Dialysis; Diabetes - IDDM; ea - PSHx: 06:30 CABG; ea - Immunization history:: Adult Immunizations up to date. - Social history:: Smoking status: Patient denies any tobacco usage or history of. Screenin:29 Abuse screen: Denies threats or abuse. Nutritional screening: No deficits noted. ea Tuberculosis screening: No symptoms or risk factors identified. Fall Risk IV access (20 points). Assessment: 06:32 General: Appears in no apparent distress. uncomfortable, Behavior is calm, cooperative, jb4 appropriate for age. Pain: Complains of pain in Left ribs Pain does not radiate. Pain currently is 10 out of 10 on a pain scale. Neuro: Level of Consciousness is awake, alert, obeys commands, Oriented to person, place, time, situation. Cardiovascular: Patient's skin is warm and dry. Respiratory: Airway is patent Respiratory effort is even, unlabored, Respiratory pattern is regular, symmetrical. GI: No signs and/or symptoms were reported involving the gastrointestinal system. : No signs and/or symptoms were reported regarding the genitourinary system. EENT: No signs and/or symptoms were reported regarding the EENT system. Derm: Skin is intact, Skin is pink, warm \T\ dry. Musculoskeletal: Circulation, motion, and sensation intact. Range of motion: intact in all extremities. 07:45 Reassessment: Patient appears in no apparent distress at this time. Patient and/or ph family updated on plan of care and expected duration. Pain level reassessed. Patient is alert, oriented x 3, equal unlabored respirations, skin warm/dry/pink. Pt resting in bed, appears uncomfortable, reports pain in L ribs, states, previous medication did not help. 09:09 Reassessment: Patient appears in no apparent distress at this time. Patient and/or ph family updated on plan of care and expected duration. Pain level reassessed. Patient is alert, oriented x 3, equal unlabored respirations, skin warm/dry/pink. Pt d/c home, instructed to go for dialysis this afternoon since he missed his session this morning. Vital Signs: 06:26 BP 138 / 85; Pulse 95; Resp 19; Temp 98; Pulse Ox 98% ; Weight 99.34 kg; Height 5 ft. 5 ea in. (165.10 cm); Pain 8/10; 09:10 BP 142 / 89; Pulse 91; Resp 18; Temp 97.9; Pulse Ox 97% on R/A; ph 06:26 Body Mass Index 36.44 (99.34 kg, 165.10 cm) ED Course: 06:16 Patient arrived in ED. am4 06:25 Mark Abbasi MD is Attending Physician. tw4 06:29 Triage completed. ea 06:30 Leroy Morris, RN is Primary Nurse. jb4 06:30 Patient has correct armband on for positive identification. Bed in low position. Call ea light in reach. Side rails up X2. Pulse ox on. NIBP on. 06:30 Patient placed in an exam room, on a stretcher, on pulse oximetry. ea 07:01 Shoulder Left (2 View) XRAY In Process Unspecified. EDMS 07:22 CT Chest Wo Con In Process Unspecified. EDMS 07:51 Attending Physician role handed off by Mark Abbasi MD [facility] 07:51 Johann Gary MD is Attending Physician. vivienne 07:57 Primary Nurse role handed off by Leroy Morris RN bd 08:39 Genaro Guerra MD is Referral Physician. vivienne 08:39 Jerome Kulkarni MD is Referral Physician. vivienne 08:41 Miladis Lopez RN is Primary Nurse. ph 09:09 No provider procedures requiring assistance completed. Patient did not have IV access ph during this emergency room visit. Sling applied to left arm. Administered Medications: 06:41 Drug: traMADol 50 mg Route: PO; jb4 07:30 Follow up: Response: No adverse reaction; Pain is unchanged, physician notified ph 09:00 Drug: Vaughn 10 mg-325 mg 1 tabs Route: PO; ph 09:08 Follow up: Response: No adverse reaction; Medication administered at discharge. ph 09:06 Not Given (Duplicate Order): Zofran (Ondansetron) 4 mg IVP once; over 2 minutes ph 09:07 Drug: Zofran (Ondansetron) 4 mg Route: PO; ph 09:08 Follow up: Response: No adverse reaction; Medication administered at discharge. ph Outcome: 08:41 Discharge ordered by . vivienne 09:11 Discharged to home via wheelchair, with family. ph 09:11 Condition: good 09:11 Discharge instructions given to patient, Instructed on discharge instructions, follow up and referral plans. medication usage, Incentive spirometer 09:12 Patient left the ED. ph Signatures: Dispatcher [employer] EDMS Genesis Larson Corey, MD MD cha Hall, Patricia, RN RN Leroy Ratliff, RN RN jb4 Jessica Rowley RN RN ea Wadley, Terrence, MD MD 4 Cindy Ornelas
[2020-08-06] MEDS ORDERED: ONDANSETRON 4 MG (ODT) TAB ONE (09:01)
[2020-08-06] MEDS ORDERED: HYDROCODONE/APAP 10/325 TAB ONE (09:01)
--- NOTE | 2020-08-06 09:16 | RAD REPORT ---
EXAM DESCRIPTION: RAD - Shoulder Left 2 View - 08/06/2020 7:00 am CLINICAL HISTORY: trauma;Pain COMPARISON: Shoulder Left 2 View dated 07/15/2012 TECHNIQUE: Internal and external rotation views of the left shoulder were obtained. FINDINGS: There is no fracture or dislocation. AC joint is normal in appearance. Nondisplaced fractu re of the left fifth rib is identified but not optimally seen. IMPRESSION: No acute left shoulder finding. Left fifth rib nondisplaced fracture.
[2020-08-06 20:28] VITALS: BP 142/89; TEMP 97.9; O2SAT 97
== END 2020-08-06 09:12 | disposition home or self-care (01) ==
LOC: ER 06:12
DX: S22.42XA Multiple fractures of ribs, left side, initial encounter for closed fracture (principal); S27.321A Contusion of lung, unilateral, initial encounter; W10.1XXA Fall (on)(from) sidewalk curb, initial encounter; I12.0 Hypertensive chronic kidney disease with stage 5 chronic kidney disease or end stage renal disease; N18.6 End stage renal disease; Z99.2 Dependence on renal dialysis; E11.22 Type 2 diabetes mellitus with diabetic chronic kidney disease; Z79.4 Long term (current) use of insulin; E78.00 Pure hypercholesterolemia, unspecified; Z95.1 Presence of aortocoronary bypass graft
CPT/HCPCS: 71250; 99284

== ENCOUNTER 2020-08-07 14:44 | Inpatient (IN) | payer OTHER ==
--- OUTSIDE RECORDS SUMMARY | 2020-08-07 14:49 | XMS REPORT | Continuity of Care Document ---
:1965 Author Organization [facility] t Address [address] [place] [place] [address] Care Team Providers Name Role Phone Sarita Lemos MD Primary Care Physician Donavon Ogden Attending Clinician Unavailable Angie MYERS Attending Clinician Unavailable Ronald Ruvalcaba Attending Clinician Unavailable Indio Attending Clinician Unavailable Ruel MEDINAP Attending Clinician RADHA Attending Clinician Unavailable ERIC HARDING Attending Clinician Unavailable RADHA Admitting Clinician Unavailable Payers Payer Name Policy Type Policy Effective Date Expiration Date Sour ce Number MEDICAREMEDICARE A [id number] 2009 DINAH Og [id number] 2010 00:00:00 - Medical resentMedicare Center Problems [...] al involving involving 00 [place] C [place] at this coronary coronary time. 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 00:00: Medi yann of renal of renal 00 Center origin origin 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 5-24 [facility] - kidney kidney 00:00: Medical disease(28 disease(28 00 Ce nter 5.21) 5.21) GERD GERD Disease Active [facility] (gastroeso (gastroeso 5-24 Kailee kes - phageal phageal 00:00: Medical reflux reflux 00 Center disease) disease) Obesity Obesity Disease Active [facility] (BMI (BMI 5-24 [facility] - 35.0-39.9 [...] [facility] Natural father Diabetes [facility] Natural father Heart disease [facility] Social History Social Habit Start Date Stop Date Quantity Comments Source Sex Assigned At [facility] Tobacco use and 2019-03-31 2019-03-31 Never used [facility] - exposure 00:00:00 00:00:00 [facility] Alcohol intake 2019-03-31 2019-03-31 Current [facility] - 00:00:00 00:00:00 non-drinker of Medical Ce nter alcohol (finding) Smoking Status Start Date Stop Date Source Never smoker [facility] Medications Ordered Filled Start Stop [...] 20 MG 11:22: daily. Medical capsule 05 [place] melatonin 3 Yes 1mg QD Take [address] mg Tab 7-25 by mouth [facility] - tablet 11:22: nightly. Medical [address] [place] [address] midodrine Yes 10mg Take [address] (PROAMATINE 7-25 by mouth Luke s - ) 10 MG 11:22: every Medical tablet 05 Thursday, Center Thursday, Thursday 30 minutes before dialysis IN ADDITION TO REGULAR 5 MG DOSE. amitriptyli Yes 50mg QD Take [address] [facility] (ELAVIL) 7-25 by mouth Luke s - 10 MG 11:22: nightly . Medical tablet [address] [place] [address] atorvastati Yes 40mg QD Take [address] n (LIPITOR) 7-25 by mouth Luke s - 40 MG 11:22: daily. Medical tablet 05 Center carvedilol Yes 3.125mg Take 3.[address] (COREG) 7-25 mg by [facility] - 3.125 MG 11:22: mouth 2 Medica l tablet 05 (two) Center times daily with breakfast and dinner. midodrine Yes 5mg Q.[id number] Take [address] (PROAMATINE 7-25 [id number] by mouth 3 [facility] - ) 5 MG 11:22: 3D (three) Medical tablet 05 times Center daily. aspirin 81 2019 Yes 81mg QD Take [address] MG EC 7-25 by mouth [facility] - tablet 11:22: daily. [address] epoetin Yes [id number] Inject [address] mey-epbx 6-24 mL [...] (14 Units M edical nsulin 00 total) [place] aspart subcutaneo (NOVOLOG usly 2 MIX 70/30) [...] Planned Date Details Comments Source Future Scheduled 2020-05-[address] [facility] - Test 00:00:00 (12+) [code = [facility] DEPRESSION SCREENING (12+)] Future Scheduled 2020-01-24 INFLUENZA VACCINE (#1) [facility] - Test 00:00:00 [code = INFLUENZA Medical nter VACCINE (#1)] Future Scheduled 2019-10-[address] [facility] - Test 00:00:00 (procedure) [code = Medical Center 37779450] Future Scheduled 2019-06-[address] [facility] - Test 00:00:[address] [facility] colon (procedure) [code = 424650022] Future Scheduled 2019-05-[address] Kailee kes - Test 00:00:00 measurement [facility] (procedure) [code = 41347977] Future Scheduled 2017 SHINGLES VACCINES ([address] [facility] - Test 00:00:00 of 2) [code = SHINGLES Medic al Center VACCINES (1 of 2)] Future Scheduled 2010-09-[address] [facility] - Test 00:00:00 WELLNESS (YEAR 2 or Medical Center FIRST YEAR if no IPPE) [code = MEDICARE ANNUAL WELLNESS (YEAR 2 or FIRST YEAR if no IPPE)] Future Scheduled 1986 DTAP/TDAP/TD VACCINES [facility] - Test 00:00:00 (1 - Tdap) [code = Medical C enter DTAP/TDAP/TD VACCINES (1 - Tdap)] Future Scheduled [address] DIABETIC EYE EXAM [facility] - Test 00:00:00 [code = DIABETIC EYE Medical Center EXAM] Future Scheduled [address] [facility] - Test 00:00:00 examination [facility] (regime/therapy) [code = 876851042] Future Scheduled 1977 Urine screening for [facility] - Test 00:00:00 protein (procedure) [facility] [code = 673928878] Future Scheduled [address] [facility] - Test 00:00:00 0-64 YRS (1 of 1 - Medical C enter PPSV23) [code = PNEUMOCOCCAL VACCINE 0-64 YRS (1 of 1 - PPSV23)] Encounters Start End Encounter Admission Attending Care Care Encounter Source Date/Time Date/Time Type Type Clinicians Facility Department ID 2019-07-28 2019-07-28 Office HEBER Lipscomb [id number] 11:24:51 16:32:38 Visit [facility] AMBULATOR 350.1.13.21 Y 0.2.7.2.686 [id number] 2018-12-14 2018-12-14 Office HEBER Lipscomb [id number] 11:15:58 13:39:25 Visit [facility] PLASCENCIA 350.1.13.21 Y 0.2.7.2.686 [id number] Results Test Description Test Time Test Comments Results Result Comments Source SURG 2020-08-02 14:55:00 Test Item Value Reference Range Interpretation Comme nts SURG RUN (test DATE: 08/02/20 [facility] PAGE 1 RUN code = TIME: 1455 Specimen Inquiry RUN USER: INTERFACE SURG) DION ENT: MATTHEW BLACKMAN LOC: [place] #: [id number] AGE/SX: 55/M ROOM: RE08/01/20REG DR: Vitaly Cheek MD : 69 BED : DIS: STATUS: DEP [facility] TLOC: SPEC #: [id number] 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 ASCENDING COLON - ASCENDING COLON POLYP CLINICAL HISTORY SCREENING FOR MALIGNANT NEOPLASM - Z12.11; Z01.818 CPT CODES CPT CODE(S ): 30470 , , , , , , FINAL [...] A2 and A3. ba/nr Grossing performed at D Pathology, [address] [facility], [address], CONTINUED ON NEXT PAGE RUN DATE: 08/02/20 [facility] PAGE 2 RUN TIME: 1455 Specimen Inquiry RUN USER: INTERFACE SPEC #: [facility]:[id number] PATIENT: MATTHEW BLACKMAN #[id number] (Continued) ------- [facility] (Continued) [place], [place] [address]. Stripping Machine Operator: Miguel Brown MICROSCOPIC DESCRIPTION Ascending colon polyp. Sections demonstrate colonic mucosa w ith glands demonstrating crowded, hyperchromatic, pseudostratified nuclei. No evidence of high-grade dysplasia or patricia gnancy is seen. - Signed SIGNATURE ON FILE MereditheverettJuan M 08/02/20 1455 END OF REPORT GLUCOSE BEDSIDE [id number] 09:26:00 Test Item Value Reference Range Interpretation Comments GLUCOSE BEDSIDE TESTING (test code 198 mg/dL 70-110 H = GLUBED) [id number] 07:58:00 Test Item Value Reference Range Interpretation Comments POTASSIUM (test code = K) 4.9 mmol/L 3.4-5.0 N BASIC METABOLIC [id number] 11:52:00 Test Item Value Reference Range Interpretation [...] 9.3 MG/DL 8.5-10.1 N COVID 19 INHOUSE [id number] 11:43:00 Test Item Value Reference Range Interpretation Comments COVID 19 INHOUSE AG NEGATIVE Negative Per morgan facturer, (test code = negative result s should [id number]) be treated aspr esumptive and, if inconsi [...] Spec Comments: PRE OPComments to Phleb: PATPROTHROMBIN [id number] 11:29:00 Test Item Value Reference Range Interpretation Comments PT PATIENT (test code = PTP) 10.9 SECONDS 9.3-12.9 N INTERNATIONAL NORMAL RATIO 0.97 INR Unit 0.8-1.2 N (test code = INR) THROMBOPLASTIN TIME [id number] 11:29:00 Test Item Value Reference Range Interpretation Comments THROMBOPLASTIN TIME PARTIAL 32.7 SECONDS 26-35 N (test code = PTT) CBC W/AUTO [id number] 11:17:00 Test Item Value Reference Range Interpretation [...] CRITERIA = MDIFF) MYOCARD IMAGING, MULTI, PHARM, [id number] 16:38:00FINAL REPORT PROCEDURE: MYOCARDIAL PERFUSION SPECT IMAGING (Rest/Stress)CPT CODE: 62513 INDICATION: Evaluation in advance of renal transplant CARDIOVASCULAR PROFILE:CAD History: Known coronary artery disease, coronary stent 2016, aortocoronary bypass, November 08, 2018Symptoms: NoneRisk Factors: [...] MDReport Verified Date/Time: 03/31/2019 16:38:15 Reading Location: [address] Reading Room POCT-GLUCOSE [id number] 11:51:00 Test Item Value Reference Range Interpretation Comments POC-GLUCOSE METER 136 mg/dL 70-110 H TESTED AT [place] [address] [facility] (test code = [facility] Conner [facility] 1538) [address] POCT-GLUCOSE [id number] 08:41:00 Test Item Value Reference Range Interpretation Comments POC-GLUCOSE METER 157 mg/dL 70-110 H TESTED AT [place] [address] ([facility] (test code = [facility] 1538) [address] POCT-GLUCOSE [id number] 06:47:00 Test Item Value Reference Range Interpretation Comments POC-GLUCOSE METER 130 mg/dL 70-110 H TESTED AT [place] [address] ([facility] (test code = [facility] 1538) [address] BASIC METABOLIC [id number] 05:20:00 Test Item Value Reference Range Interpretation [...] PATIEN TS. CBC W/PLT COUNT & AUTO [id number] 04:42:00 Test Item Value Reference Range Interpretation [...] PERCENT (BEAKER) (test code = 2801) POCT-GLUCOSE [id number] 19:39:00 Test Item Value Reference Range Interpretation Comments POC-GLUCOSE METER 88 mg/dL 70-[address] [facility] 6720 (BEAKER) (test code = [place] [address] 1538) BASIC METABOLIC [id number] 15:34:00 Test Item Value Reference Range Interpretation [...] PATIEN TS. CBC W/PLT COUNT & AUTO [id number] 15:20:00 Test Item Value Reference Range Interpretation [...] PERCENT (BEAKER) (test code = 2801) POCT-GLUCOSE [id number] 12:47:00 Test Item Value Reference Range Interpretation Comments POC-GLUCOSE METER 140 mg/dL 70-[address] [facility] 6720 ([facility]) (test code = BRENDA Pri[place] 1538) [address] POCT-GLUCOSE [id number] 08:21:00 Test Item Value Reference Range Interpretation Comments POC-GLUCOSE METER 107 mg/dL 70-[address] [facility] 6720 ([facility]) (test code = BRENDA Prieto [facility] 1538) [address] POCT-GLUCOSE [id number] 22:25:00 Test Item Value Reference Range Interpretation Comments POC-GLUCOSE METER 97 mg/dL 70-110 TESTED AT [place] [address] ([facility]) (test code = BRENDA Prieto [facility] [address] 1538) POCT-GLUCOSE [id number] 18:02:00 Test Item Value Reference Range Interpretation Comments POC-GLUCOSE METER 264 mg/dL 70-110 H TESTED AT [place] [address] ([facility]) (test code = BRENDA Prieto [facility] 1538) [address] EEG AWAKE AND [id number] 12:26:00Reason for exam:->EncephalopathyDATE OF TEST: 11-11-2018 DATE OF REPORT: 11-11-2018 EEG: BT 19-1114 Start time: 9:31AM Stop time: 9:54AM ICD-10: R41.82 CPT Code: 99025 HISTORY: 53 year old male with CAD [...] recorded. [facility] M.D. Neurophysiology Attending POCT-GLUCOSE [id number] 10:29:00 Test Item Value Reference Range Interpretation Comments POC-GLUCOSE METER 164 mg/dL 70-[address] [facility] 6720 (BEAKER) (test code = [place] 1538) [address] BASIC METABOLIC [id number] 05:28:00 Test Item Value Reference Range Interpretation [...] PATIEN TS. CBC W/PLT COUNT & AUTO [id number] 04:59:00 Test Item Value Reference Range Interpretation [...] PERCENT (BEAKER) (test code = 2801) POCT-GLUCOSE [id number] 21:43:00 Test Item Value Reference Range Interpretation Comments POC-GLUCOSE METER 158 mg/dL 70-[address] [facility] 6720 ([facility]) (test code = BRENDA Prieto [facility] 1538) [address] POCT-GLUCOSE [id number] 20:10:00 Test Item Value Reference Range Interpretation Comments POC-GLUCOSE METER 132 mg/dL 70-[address] [facility] 6720 ([facility] (test code = BRENDA Prieto [facility] 1538) [address] BASIC METABOLIC [id number] 17:58:00 Test Item Value Reference Range Interpretation [...] PATIEN TS. CBC W/PLT COUNT & AUTO [id number] 17:00:00 Test Item Value Reference Range Interpretation [...] (test code = 2801) CT, BRAIN, WITHOUT [id number] 14:50:00Reason for exam:->decreased alertnessWhat is the patient's [...] if there are no contraindications. Signed: Doug Solitarioort Verified Date/Time: 11/10/2018 14:50:39 Reading Location: [address] Neuro Reading Room BLOOD GAS, [id number] 13:34:00 Test Item Value Reference Range Interpretation [...] (test 37.0 C code = 1818) POCT-GLUCOSE [id number] 09:04:00 Test Item Value Reference Range Interpretation Comments POC-GLUCOSE METER 108 mg/dL 70-[address] [facility] 6720 [facility] 1538) [address] POCT-GLUCOSE [id number] 03:53:00 Test Item Value Reference Range Interpretation Comments POC-GLUCOSE METER 114 mg/dL 70-[address] [facility] 6720 ([facility] (test code = [facility] Conner [facility] 1538) [address] POCT-GLUCOSE [id number] 20:13:00 Test Item Value Reference Range Interpretation Comments POC-GLUCOSE METER 246 mg/dL 70-[address] [facility] 6720 ([facility] (test code = [facility] Conner [facility] 1538) [address] POCT-GLUCOSE [id number] 20:06:00 Test Item Value Reference Range Interpretation Comments POC-GLUCOSE METER 198 mg/dL 70-110 H TESTED AT [place] [address] (BEAKER) ([facility] = [facility] 1538) [address] [id number] 16:20:00 Test Item Value Reference Range Interpretation Comments POTASSIUM (BEAKER) (test code = 4.1 meq/L 3.5-5.1 379) Call Nephrology for > 5.2BLOOD GAS, [id number] 16:07:00 Test Item Value Reference Range Interpretation [...] (test code = 1819) 32.0 % POCT-GLUCOSE [id number] 15:58:00 Test Item Value Reference Range Interpretation Comments POC-GLUCOSE METER 182 mg/dL 70-110 H TESTED AT [place] [address] (BEAKER) (test code = [facility] 1538) [address] POCT-GLUCOSE [id number] 15:58:00 Test Item Value Reference Range Interpretation Comments POC-GLUCOSE METER 124 mg/dL 70-110 H TESTED AT [place] [address] (BEAKER) (test code = [facility] 1538) [address] [id number] 12:51:00 Test Item Value Reference Range Interpretation Comments POTASSIUM (BEAKER) (test code = 3.4 meq/L 3.5-5.1 L 379) Call Nephrology for > 5.2BLOOD GAS, [id number] 12:39:00 Test Item Value Reference Range Interpretation [...] (BEAKER) (test code = 1819) 36.0 % [id number] 10:39:00 Test Item Value Reference Range Interpretation Comments FERRITIN (BEAKER) (test code = 1987 ng/mL 5-275 H 361) POCT-GLUCOSE [id number] 10:38:00 Test Item Value Reference Range Interpretation Comments POC-GLUCOSE METER 116 mg/dL 70-[address] [facility] 6720 (BEAKER) (test code = BRENDA Prieto [facility] 1538) [address] IRON, TIBC, % SAT. (WITHOUT FERRITIN)2018-11-09 10:10:00 Test Item Value Reference Range Interpretation Comments IRON (BEAKER) (test code = 547) 33.0 ug/dL 40.0-160.0 L TOTAL IRON BINDING CAPACITY 174 ug/dL 250-450 L (BEAKER) (test code = 769) IRON % SATURATION (2) (BEAKER) 19 % 20-55 L (test code = 2590) [id number] 09:58:00 Test Item Value Reference Range Interpretation Comments POTASSIUM (BEAKER) (test code = 4.9 meq/L 3.5-5.1 379) Call Nephrology for > [id number] 08:15:00 Test Item Value Reference Range Interpretation Comments POTASSIUM (BEAKER) (test code = 5.4 meq/L 3.5-5.1 H 379) Call Nephrology for > 5.2BLOOD GAS, [id number] 07:57:00 Test Item Value Reference Range Interpretation [...] 40.0 % RAD, CHEST, 1 VIEW, NON [id number] 07:53:00while patient is intubated or has chest [...] chest tube remain place. Signed: Prince Betts Verified Date/Time: 11/09/2018 07:53:31 Reading Location: [facility] Radiology Reading Room POCT-GLUCOSE [id number] 07:10:00 Test Item Value Reference Range Interpretation Comments POC-GLUCOSE METER 118 mg/dL 70-110 H TESTED AT [place] [address] ([facility]) (test code = BRENDA Prieto [facility] 1538) [address] POCT-GLUCOSE [id number] 06:27:00 Test Item Value Reference Range Interpretation Comments POC-GLUCOSE METER 115 mg/dL 70-110 H TESTED AT [place] [address] ([facility]) (test code = BRENDA Prieto [facility] 1538) [address] [id number] 06:20:00 Test Item Value Reference Range Interpretation Comments ACTIVATED CLOTTING TIME 109 sec TEST ED AT [place] [address] ([facility]) (test code = [place] 441) [address] [id number] 06:20:00 Test Item Value Reference Range Interpretation Comments ACTIVATED CLOTTING TIME 417 sec TEST ED AT [place] [address] ([facility]) (test code = [place] 441) [address] [id number] 06:20:00 Test Item Value Reference Range Interpretation Comments ACTIVATED CLOTTING TIME 461 sec TEST ED AT [place] [address] ([facility]) (test code = [place] 441) [address] [id number] 06:20:00 Test Item Value Reference Range Interpretation Comments ACTIVATED CLOTTING TIME 516 sec TEST ED AT [place] [address] ([facility]) (test code = [place] 441) [address] [id number] 06:19:00 Test Item Value Reference Range Interpretation Comments ACTIVATED CLOTTING TIME 494 sec TEST ED AT [place] [address] ([facility]) (test code = BR[place] 441) [address] [id number] 06:19:00 Test Item Value Reference Range Interpretation Comments ACTIVATED CLOTTING TIME 378 sec TEST ED AT [place] [address] ([facility]) (test code = BRENDA [place] 441) [address] LACTIC ACID, [id number] 06:14:00 Test Item Value Reference Range Interpretation Comments LACTATE BLOOD 0.9 mmol/L 0.5-2.2 Specimen sligh tly ARTERIAL (2) (BEAKER) hemoly zed (test code = 2874) [id number] 06:12:00 Test Item Value Reference Range Interpretation Comments POTASSIUM (BEAKER) (test code = 5.5 meq/L 3.5-5.1 H 379) Call Nephrology for > 5.2OXYGEN SATURATION, [id number] 05:54:00 Test Item Value Reference Range Interpretation Comments O2 SATURATION (MEASURED) (BEAKER) 91.7 % (test code = 1455) BLOOD GAS, [id number] 05:54:00 Test Item Value Reference Range Interpretation Comments PH ARTERIAL (BEAKER) (test code = 7.35 7.35-7.45 383) PCO2 ARTERIAL (BEAKER) (test code 47 mmHg 35-45 H = 384) PO2 ARTERIAL (BEAKER) (test code 117 mmHg 80-90 H = 385) O2 SATURATION ARTERIAL ([facility]) 98.1 % 96.0-97.0 H (test code = 386) HCO3 ARTERIAL ([facility]) (test code 26 mmol/L 21-29 = 388) BASE EXCESS ARTERIAL ([facility]) -0.2 mmol/L -2.0-3.0 (test code = 387) PATIENT TEMPERATURE ([facility]) 36.4 C (test code = 1818) FIO2 ([facility]) (test code = 1819) 50.0 % POCT-GLUCOSE [id number] 05:18:00 Test Item Value Reference Range Interpretation Comments POC-GLUCOSE METER 127 mg/dL 70-110 H TESTED AT [place] [address] ([facility]) (test code = [facility] 1538) [address] POCT-GLUCOSE [id number] 04:30:00 Test Item Value Reference Range Interpretation Comments POC-GLUCOSE METER 191 mg/dL 70-110 H TESTED AT [place] [address] ([facility]) (test code = [facility] 1538) [address] POCT-GLUCOSE [id number] 04:30:00 Test Item Value Reference Range Interpretation Comments POC-GLUCOSE METER 320 mg/dL 70-110 H Verify [facility] ([facility]) (test code = draw/T ESTED AT [place] [address]) [address] [facility] [address] POCT-GLUCOSE [id number] 04:30:00 Test Item Value Reference Range Interpretation Comments POC-GLUCOSE METER 187 mg/dL 70-110 H TESTED AT [place] [address] ([facility]) (test code = [facility] 1538) [address] POCT-GLUCOSE [id number] 04:30:00 Test Item Value Reference Range Interpretation Comments POC-GLUCOSE METER 132 mg/dL 70-110 H TESTED AT [place] [address] ([facility]) (test code = [facility] 1538) [address] BASIC METABOLIC [id number] 04:27:00 Test Item Value Reference Range Interpretation [...] DIALYSIS PATIEN TS. Call Nephrology for > [id number] 04:08:00 Test Item Value Reference Range Interpretation Comments POTASSIUM (BEAKER) (test code = 5.2 meq/L 3.5-5.1 H 379) Call Nephrology for > [id number] 04:08:00 Test Item Value Reference Range Interpretation Comments MAGNESIUM (BEAKER) (test code = 2.1 mg/dL 1.6-2.6 627) Call Nephrology for > [id number] 04:08:00 Test Item Value Reference Range Interpretation Comments PHOSPHORUS (BEAKER) (test code = 4.0 mg/dL 2.3-4.7 604) Call Nephrology for > 5.2CBC W/PLT COUNT & AUTO [id number] 03:51:00 Test Item Value Reference Range Interpretation [...] (BEAKER) (test code = 2801) BLOOD GAS, [id number] 03:48:00 Test Item Value Reference Range Interpretation [...] (test code = 1819) 50.0 % CALCIUM, [id number] 03:48:00 Test Item Value Reference Range Interpretation Comments CALCIUM IONIZED (BEAKER) (test 1.23 mmol/L 1.12-1.27 code = 698) PH, BLOOD (BEAKER) (test code = 7.32 1810) [id number] 02:28:00 Test Item Value Reference Range Interpretation Comments POTASSIUM (BEAKER) (test code = 5.9 meq/L 3.5-5.1 H 379) Call Nephrology for > 5.2BLOOD GAS, [id number] 02:07:00 Test Item Value Reference Range Interpretation [...] (test code = 1819) 44.0 % POTASSIUM-STAT [id number] 00:09:00 Test Item Value Reference Range Interpretation Comments POTASSIUM (BEAKER) (test code = 5.8 meq/L 3.6-5.5 H 379) BLOOD GAS, [id number] 00:04:00 Test Item Value Reference Range Interpretation [...] (test code = 1819) 50.0 % GLUCOSE-STAT [id number] 00:04:00 Test Item Value Reference Range Interpretation Comments GLUCOSE RANDOM (BEAKER) (test code 133 mg/dL 70-110 H = 652) HGB/HCT (H&H) - STAT [id number] 00:04:00 Test Item Value Reference Range Interpretation Comments HEMOGLOBIN (BEAKER) (test code = 11.1 g/dL 13.0-16.8 L 410) HEMATOCRIT (BEAKER) (test code = 33.0 % 40.0-50.0 L 411) SODIUM NA-STAT [id number] 00:02:00 Test Item Value Reference Range Interpretation Comments SODIUM (BEAKER) (test code = 381) 136 meq/L 135-148 POCT-GLUCOSE [id number] 00:01:00 Test Item Value Reference Range Interpretation Comments POC-GLUCOSE METER 131 mg/dL 70-[address] [facility] 6720 (BEAKER) (test [facility] = [facility] 1538) [address] POCT-GLUCOSE [id number] 00:01:00 Test Item Value Reference Range Interpretation Comments POC-GLUCOSE METER 117 mg/dL 70-[address] [facility] 6720 (BEAKER) (test [facility] = [facility] 1538) [address] POCT-GLUCOSE [id number] 00:01:00 Test Item Value Reference Range Interpretation Comments POC-GLUCOSE METER 119 mg/dL 70-[address] [facility] 6720 (BEAKER) (test [facility] = [facility] 1538) [address] BASIC METABOLIC [id number] 23:15:00 Test Item Value Reference Range Interpretation [...] S NOT APPLICABLE FOR DIALYSIS PATIEN TS. [id number] 23:14:00 Test Item Value Reference Range Interpretation Comments MAGNESIUM (BEAKER) (test code = 2.1 mg/dL 1.6-2.6 627) LACTIC ACID, [id number] 23:11:00 Test Item Value Reference Range Interpretation Comments LACTATE BLOOD ARTERIAL (2) 1.0 mmol/L 0.5-2.2 (BEAKER) (test code = 2874) BLOOD GAS, [id number] 22:57:00 Test Item Value Reference Range Interpretation [...] (test code = 1819) 50.0 % GLUCOSE-STAT [id number] 22:57:00 Test Item Value Reference Range Interpretation Comments GLUCOSE RANDOM (BEAKER) (test code 126 mg/dL 70-110 H = 652) HGB/HCT (H&H) - STAT [id number] 22:57:00 Test Item Value Reference Range Interpretation Comments HEMOGLOBIN (BEAKER) (test code = 11.2 g/dL 13.0-16.8 L 410) HEMATOCRIT (BEAKER) (test code = 33.0 % 40.0-50.0 L 411) SODIUM NA-STAT [id number] 22:54:00 Test Item Value Reference Range Interpretation Comments SODIUM (BEAKER) (test code = 381) 138 meq/L 135-148 POTASSIUM-STAT [id number] 22:54:00 Test Item Value Reference Range Interpretation Comments POTASSIUM (BEAKER) (test code = 5.4 meq/L 3.6-5.5 379) SODIUM NA-STAT [id number] 21:58:00 Test Item Value Reference Range Interpretation Comments SODIUM (BEAKER) (test code = 381) 138 meq/L 135-148 POTASSIUM-STAT [id number] 21:58:00 Test Item Value Reference Range Interpretation Comments POTASSIUM (BEAKER) (test code = 4.6 meq/L 3.6-5.5 379) BLOOD GAS, [id number] 21:58:00 Test Item Value Reference Range Interpretation [...] (test code = 1819) 30.0 % GLUCOSE-STAT [id number] 21:58:00 Test Item Value Reference Range Interpretation Comments GLUCOSE RANDOM (BEAKER) (test code 121 mg/dL 70-110 H = 652) HGB/HCT (H&H) - STAT [id number] 21:58:00 Test Item Value Reference Range Interpretation Comments HEMOGLOBIN (BEAKER) (test code = 11.3 g/dL 13.0-16.8 L 410) HEMATOCRIT (BEAKER) (test code = 33.0 % 40.0-50.0 L 411) POCT-GLUCOSE [id number] 21:02:00 Test Item Value Reference Range Interpretation Comments POC-GLUCOSE METER 133 mg/dL 70-[address] [facility] 6720 (BEAKER) (test code = BR[place] 1538) [address] SODIUM NA-STAT [id number] 20:38:00 Test Item Value Reference Range Interpretation Comments SODIUM (BEAKER) (test code = 381) 136 meq/L 135-148 POTASSIUM-STAT [id number] 20:38:00 Test Item Value Reference Range Interpretation Comments POTASSIUM (BEAKER) (test code = 4.4 meq/L 3.6-5.5 379) BLOOD GAS, [id number] 20:38:00 Test Item Value Reference Range Interpretation [...] (test code = 1819) 40.0 % GLUCOSE-STAT [id number] 20:38:00 Test Item Value Reference Range Interpretation Comments GLUCOSE RANDOM (BEAKER) (test code 124 mg/dL 70-110 H = 652) HGB/HCT (H&H) - STAT [id number] 20:38:00 Test Item Value Reference Range Interpretation Comments HEMOGLOBIN (BEAKER) (test code = 10.9 g/dL 13.0-16.8 L 410) HEMATOCRIT (BEAKER) (test code = 32.0 % 40.0-50.0 L 411) POCT-GLUCOSE [id number] 20:17:00 Test Item Value Reference Range Interpretation Comments POC-GLUCOSE METER 139 mg/dL 70-110 H TESTED AT [place] [address] (BEAKER) (test code = BRENDA Prieto [place] 1538) [address] POCT-GLUCOSE [id number] 20:17:00 Test Item Value Reference Range Interpretation Comments POC-GLUCOSE METER 154 mg/dL 70-110 H [facility] [place] [address] [facility] (test code = BRENDA Prieto [place] 1538) [address] POCT-GLUCOSE [id number] 20:17:00 Test Item Value Reference Range Interpretation Comments POC-GLUCOSE METER 169 mg/dL 70-110 H [facility] [place] [address] [facility] (test code = BRENDA Prieto [place] 1538) [address] [id number] 19:51:00 Test Item Value Reference Range Interpretation [...] 2 hours after IV magnesium replacement.BLOOD GAS, [id number] 19:29:00 Test Item Value Reference Range Interpretation [...] (test code = 1819) 60.0 % GLUCOSE-STAT [id number] 19:29:00 Test Item Value Reference Range Interpretation Comments GLUCOSE RANDOM (BEAKER) (test code 142 mg/dL 70-110 H = 652) HGB/HCT (H&H) - STAT [id number] 19:29:00 Test Item Value Reference Range Interpretation Comments HEMOGLOBIN (BEAKER) (test code = 11.3 g/dL 13.0-16.8 L 410) HEMATOCRIT (BEAKER) (test code = 33.0 % 40.0-50.0 L 411) SODIUM NA-STAT [id number] 19:28:00 Test Item Value Reference Range Interpretation Comments SODIUM (BEAKER) (test code = 381) 138 meq/L 135-148 POTASSIUM-STAT [id number] 19:28:00 Test Item Value Reference Range Interpretation Comments POTASSIUM (BEAKER) (test code = 4.2 meq/L 3.6-5.5 379) BASIC METABOLIC [id number] 16:25:00 Test Item Value Reference Range Interpretation [...] S NOT APPLICABLE FOR DIALYSIS PATIEN TS. [id number] 16:22:00 Test Item Value Reference Range Interpretation Comments MAGNESIUM (BEAKER) 2.3 mg/dL 1.6-2.6 Specimen slightly (test code = 627) hemolyzed [id number] 16:22:00 Test Item Value Reference Range Interpretation Comments PHOSPHORUS (BEAKER) 3.3 mg/dL 2.3-4.7 Specimen slightly (test code = 604) hemolyzed LACTIC ACID, [id number] 15:52:00 Test Item Value Reference Range Interpretation Comments LACTATE BLOOD 1.0 mmol/L 0.5-2.2 Specimen sligh tly ARTERIAL (2) (BEAKER) hemoly zed (test code = 2874) [id number] 15:48:00 Test Item Value Reference Range Interpretation [...] mechanical heart valves.CBC W/PLT COUNT & AUTO [id number] 15:31:00 Test Item Value Reference Range Interpretation [...] (BEAKER) (test code = 2801) OXYGEN SATURATION, [id number] 15:30:00 Test Item Value Reference Range Interpretation Comments O2 SATURATION (MEASURED) (BEAKER) 90.0 % (test code = 1455) BLOOD GAS, [id number] 15:30:00 Test Item Value Reference Range Interpretation [...] 100.0 % RAD, CHEST, 1 VIEW, NON [id number] 15:29:00Reason for exam:->Status post CV Surgery post [...] noted. No acute osseous abnormality. Signed: Werner Cantuort Verified Date/Time: 11/08/2018 15:29:07 Reading Location: [facility] Reading Room MBOELASTOGRAPH (TEG)2018-11-08 14:44:00 Test Item [...] 55.0-65.0 L (test code = 1413) PROTHROMBIN [id number] 13:56:00 Test Item Value Reference Range Interpretation [...] INR is2.5-3.5 for patients wiht mechanical heart valves.[id number] 13:56:00 Test Item Value Reference Range Interpretation Comments FIBRINOGEN LEVEL (BEAKER) (test 449 mg/dl 225-434 H code = 658) [id number] 13:56:00 Test Item Value Reference Range Interpretation Comments PARTIAL THROMBOPLASTIN TIME 30.5 seconds 22.5-36.0 (BEAKER) (test code = 760) PLATELET [id number] 13:49:00 Test Item Value Reference Range Interpretation Comments PLATELET COUNT (BEAKER) (test 106 K/CU MM 150-450 L code = 756) BLOOD GAS, [id number] 13:44:00 Test Item Value Reference Range Interpretation [...] (test code = 1819) 100.0 % GLUCOSE-STAT [id number] 13:44:00 Test Item Value Reference Range Interpretation Comments GLUCOSE RANDOM (BEAKER) (test code 176 mg/dL 70-110 H = 652) HGB/HCT (H&H) - STAT [id number] 13:44:00 Test Item Value Reference Range Interpretation Comments HEMOGLOBIN (BEAKER) (test code = 9.3 g/dL 13.0-16.8 L 410) HEMATOCRIT (BEAKER) (test code = 27.0 % 40.0-50.0 L 411) CALCIUM, [id number] 13:44:00 Test Item Value Reference Range Interpretation Comments CALCIUM IONIZED (BEAKER) (test 1.28 mmol/L 1.12-1.27 H code = 698) PH, BLOOD (BEAKER) (test code = 7.36 1810) SODIUM NA-STAT [id number] 13:43:00 Test Item Value Reference Range Interpretation Comments SODIUM (BEAKER) (test code = 381) 137 meq/L 135-148 POTASSIUM-STAT [id number] 13:43:00 Test Item Value Reference Range Interpretation Comments POTASSIUM (BEAKER) (test code = 5.0 meq/L 3.6-5.5 379) BLOOD GAS, [id number] 13:28:00 Test Item Value Reference Range Interpretation [...] code = 1819) 80.0 % SODIUM NA-STAT [id number] 13:28:00 Test Item Value Reference Range Interpretation Comments SODIUM (BEAKER) (test code = 381) 139 meq/L 135-148 GLUCOSE-STAT [id number] 13:28:00 Test Item Value Reference Range Interpretation Comments GLUCOSE RANDOM (BEAKER) (test code 194 mg/dL 70-110 H = 652) HGB/HCT (H&H) - STAT [id number] 13:28:00 Test Item Value Reference Range Interpretation Comments HEMOGLOBIN (BEAKER) (test code = 10.1 g/dL 13.0-16.8 L 410) HEMATOCRIT (BEAKER) (test code = 30.0 % 40.0-50.0 L 411) POTASSIUM-STAT [id number] 13:23:00 Test Item Value Reference Range Interpretation Comments POTASSIUM (BEAKER) (test code = 5.5 meq/L 3.6-5.5 379) BLOOD GAS, [id number] 12:53:00 Test Item Value Reference Range Interpretation [...] code = 1819) 100.0 % SODIUM NA-STAT [id number] 12:53:00 Test Item Value Reference Range Interpretation Comments SODIUM (BEAKER) (test code = 381) 130 meq/L 135-148 L GLUCOSE-STAT [id number] 12:53:00 Test Item Value Reference Range Interpretation Comments GLUCOSE RANDOM (BEAKER) (test code 231 mg/dL 70-110 H = 652) HGB/HCT (H&H) - STAT [id number] 12:53:00 Test Item Value Reference Range Interpretation Comments HEMOGLOBIN (BEAKER) (test code = 8.4 g/dL 13.0-16.8 L 410) HEMATOCRIT (BEAKER) (test code = 25.0 % 40.0-50.0 L 411) POTASSIUM-STAT [id number] 12:53:00 Test Item Value Reference Range Interpretation Comments POTASSIUM (BEAKER) (test code = 6.0 meq/L 3.6-5.5 HH 379) BLOOD GAS, [id number] 12:28:00 Test Item Value Reference Range Interpretation [...] code = 1819) 65.0 % SODIUM NA-STAT [id number] 12:28:00 Test Item Value Reference Range Interpretation Comments SODIUM (BEAKER) (test code = 381) 131 meq/L 135-148 L POTASSIUM-STAT [id number] 12:28:00 Test Item Value Reference Range Interpretation Comments POTASSIUM (BEAKER) (test code = 6.0 meq/L 3.6-5.5 HH 379) GLUCOSE-STAT [id number] 12:28:00 Test Item Value Reference Range Interpretation Comments GLUCOSE RANDOM (BEAKER) (test code 220 mg/dL 70-110 H = 652) HGB/HCT (H&H) - STAT [id number] 12:28:00 Test Item Value Reference Range Interpretation Comments HEMOGLOBIN (BEAKER) (test code = 8.6 g/dL 13.0-16.8 L 410) HEMATOCRIT (BEAKER) (test code = 25.0 % 40.0-50.0 L 411) BLOOD GAS, [id number] 11:39:00 Test Item Value Reference Range Interpretation [...] code = 1819) 65.0 % SODIUM NA-STAT [id number] 11:39:00 Test Item Value Reference Range Interpretation Comments SODIUM (BEAKER) (test code = 381) 132 meq/L 135-148 L POTASSIUM-STAT [id number] 11:39:00 Test Item Value Reference Range Interpretation Comments POTASSIUM (BEAKER) (test code = 5.7 meq/L 3.6-5.5 H 379) GLUCOSE-STAT [id number] 11:39:00 Test Item Value Reference Range Interpretation Comments GLUCOSE RANDOM (BEAKER) (test code 217 mg/dL 70-110 H = 652) HGB/HCT (H&H) - STAT [id number] 11:39:00 Test Item Value Reference Range Interpretation Comments HEMOGLOBIN (BEAKER) (test code = 7.6 g/dL 13.0-16.8 L 410) HEMATOCRIT (BEAKER) (test code = 22.0 % 40.0-50.0 L 411) PLATELET AGGREGATION: FUNCTION [id number] 11:26:00 Test Item Value Reference Range Interpretation Comments WEAK ADP 46 % 60-91 L RESULT(BEAKER) (test code = 2135) PLATELET FUNCTION 40-49% indicates SCREEN INTERP moderate platelet (BEAKER) (test code = dysfunction 2173) [id number] Brody Gaytan MD (BEAKER) (test code = (electronic signature) 2622) PLATELET COUNT AGG 236 K/CU MM 150-450 (BEAKER) (test code = 2656) Platelet Function Screen results may be falsely low with platelet counts<100,000/cu mm.for patients on clopidogrel in past two weeksfor patients on clopidogrel in past two weeksfor patients on clopidogrel in past two weeksPLATELET AGGREGATION: FUNCTION [id number] 11:25:00 Test Item Value Reference Range Interpretation Comments WEAK ADP 97 % 60-91 H RESULT(BEAKER) (test code = 2135) PLATELET FUNCTION 60-100% indicates SCREEN INTERP (BEAKER) normal platelet (test code = 2173) function [id number] Brody Gaytan MD (BEAKER) (test code = (electronic signature) 2622) PLATELET COUNT AGG 206 K/CU MM 150-450 (BEAKER) (test code = 2656) Platelet Function Screen results may be falsely low with platelet counts<100,000/cu mm.SODIUM NA-STAT [id number] 09:03:00 Test Item Value Reference Range Interpretation Comments SODIUM (BEAKER) (test code = 381) 135 meq/L 135-148 POTASSIUM-STAT [id number] 09:03:00 Test Item Value Reference Range Interpretation Comments POTASSIUM (BEAKER) (test code = 4.1 meq/L 3.6-5.5 379) BLOOD GAS, [id number] 09:03:00 Test Item Value Reference Range Interpretation [...] (test code = 1819) 100.0 % GLUCOSE-STAT [id number] 09:03:00 Test Item Value Reference Range Interpretation Comments GLUCOSE RANDOM (BEAKER) (test code 146 mg/dL 70-110 H = 652) HGB/HCT (H&H) - STAT [id number] 09:03:00 Test Item Value Reference Range Interpretation Comments HEMOGLOBIN (BEAKER) (test code = 10.2 g/dL 13.0-16.8 L 410) HEMATOCRIT (BEAKER) (test code = 30.0 % 40.0-50.0 L 411) POCT-GLUCOSE [id number] 07:40:00 Test Item Value Reference Range Interpretation Comments POC-GLUCOSE METER 205 mg/dL 70-[address] [facility] 6720 (BEAKER) (test code = [place] 1538) [address] BASIC METABOLIC [id number] 07:21:00 Test Item Value Reference Range Interpretation [...] S NOT APPLICABLE FOR DIALYSIS PATIEN TS. [id number] 07:11:00 Test Item Value Reference Range Interpretation Comments PHOSPHORUS (BEAKER) (test code = 4.6 mg/dL 2.3-4.7 604) [id number] 07:11:00 Test Item Value Reference Range Interpretation Comments MAGNESIUM (BEAKER) (test code = 1.8 mg/dL 1.6-2.6 627) [id number] 07:01:00 Test Item Value Reference Range Interpretation [...] mechanical heart valves.CBC W/PLT COUNT & AUTO [id number] 06:55:00 Test Item Value Reference Range Interpretation [...] = 2801) RAD, CHEST, 1 VIEW, NON [id number] 01:36:00Reason for exam:->pre opShould this be performed [...] MDReport Verified Date/Time: 11/08/2018 01:36:48 Reading Location: [address] Reading Room [id number] 22:17:00 Test Item Value Reference Range Interpretation Comments PARTIAL THROMBOPLASTIN TIME 96.5 seconds 22.5-36.0 H ([facility]) (test code = 760) PROTHROMBIN [id number] 22:15:00 Test Item Value Reference Range Interpretation Comments PROTIME ([facility]) (test code = 15.0 seconds 11.9-14.2 H 759) INR ([facility]) (test code = 370) 1.2 <=5.9 Effective 10/20/2018: PT Reference Range ChangeNew: 11.9-14.2 Previous: 11.7- 14.7RECOMMENDED COUMADIN/WARFARIN INR THERAPY RANGESSTANDARD DOSE: 2.0-3.0 Includes: PROPHYLAXIS for venous thrombosis, systemic embolization; TREATMENT for venous thrombosis and/or pulmonary embolus.HIGH RISK: Target INR is2.5-3.5 for patients wiht mechanical heart valves.POCT-GLUCOSE [id number] 21:47:00 Test Item Value Reference Range Interpretation Comments POC-GLUCOSE METER 202 mg/dL 70-110 H TESTED AT [place] [address] ([facility]) (test code = JAKELESIA Prieto [facility] 1538) [address] POCT-GLUCOSE [id number] 17:15:00 Test Item Value Reference Range Interpretation Comments POC-GLUCOSE METER 230 mg/dL 70-110 H TESTED AT [place] [address] ([facility]) (test code = JAKELESIA Prieto [place] 1538) [address] [id number] 15:36:00 Test Item Value Reference Range Interpretation Comments POTASSIUM ([facility]) 3.6 meq/L 3.5-5.1 Specimen slightly (test code = 379) hemolyzed POCT-GLUCOSE [id number] 12:00:00 Test Item Value Reference Range Interpretation Comments POC-GLUCOSE METER 145 mg/dL 70-110 H TESTED AT [place] [address] ([facility]) (test code = BRENDA Prieto [place] 1538) [address] POCT-GLUCOSE [id number] 07:45:00 Test Item Value Reference Range Interpretation Comments POC-GLUCOSE METER 204 mg/dL 70-110 H TESTED AT [place] [address] ([facility]) (test code = BRENDA Prieto [place] 1538) [address] BASIC METABOLIC [id number] 06:52:00 Test Item Value Reference Range Interpretation [...] S NOT APPLICABLE FOR DIALYSIS PATIEN TS. [id number] 06:44:00 Test Item Value Reference Range Interpretation Comments MAGNESIUM (BEAKER) 2.2 mg/dL 1.6-2.6 Specimen slightly (test code = 627) hemolyzed [id number] 06:44:00 Test Item Value Reference Range Interpretation Comments PHOSPHORUS (BEAKER) 6.6 mg/dL 2.3-4.7 H Specimen slightly (test code = 604) hemolyzed [id number] 06:34:00 Test Item Value Reference Range Interpretation [...] mechanical heart valves.CBC W/PLT COUNT & AUTO [id number] 06:14:00 Test Item Value Reference Range Interpretation [...] EOSINOPHILS ABSOLUTE COUNT 0.21 K/ L 0.04-0.54 ([facility]) (test code = 416) BASOPHILS ABSOLUTE COUNT ([facility]) 0.04 K/ L 0.01-0.08 (test code = 417) IMMATURE GRANULOCYTES-RELATIVE 1 % 0-1 PERCENT ([facility]) (test code = 2801) POCT-GLUCOSE [id number] 22:00:00 Test Item Value Reference Range Interpretation Comments POC-GLUCOSE METER 214 mg/dL 70-110 H TESTED AT [place] [address] ([facility]) (test code = BRENDA Prieto [facility] 1538) [address] [id number] 18:44:00 Test Item Value Reference Range Interpretation Comments PARTIAL THROMBOPLASTIN TIME 79.0 seconds 22.5-36.0 H ([facility]) (test code = 760) POCT-GLUCOSE [id number] 16:38:00 Test Item Value Reference Range Interpretation Comments POC-GLUCOSE METER 194 mg/dL 70-110 H TESTED AT [place] [address] ([facility]) (test code = [facility] Conner [facility] 1538) [address] [id number] 12:50:00 Test Item Value Reference Range Interpretation Comments PARTIAL THROMBOPLASTIN TIME 83.0 seconds 22.5-36.0 H ([facility]) (test code = 760) POCT-GLUCOSE [id number] 12:31:00 Test Item Value Reference Range Interpretation Comments POC-GLUCOSE METER 270 mg/dL 70-110 H TESTED AT [place] [address] ([facility]) (test code = [facility] Conner [facility] 1538) [address] POCT-GLUCOSE [id number] 07:58:00 Test Item Value Reference Range Interpretation Comments POC-GLUCOSE METER 212 mg/dL 70-110 H TESTED AT [place] [address] ([facility]) (test code = [facility] Conner [facility] 1538) [address] CBC W/PLT COUNT & AUTO [id number] 05:56:00 Test Item Value Reference Range Interpretation Comments WHITE BLOOD CELL COUNT ([facility]) 5.9 K/ L 3.5-10.5 (test code = 775) RED BLOOD CELL COUNT ([facility]) 3.71 M/ L 4.63-6.08 L (test code [...] 0-1 PERCENT (BEAKER) (test code = 2801) [id number] 05:43:00 Test Item Value Reference Range Interpretation Comments PARTIAL THROMBOPLASTIN TIME 43.1 seconds 22.5-36.0 H (BEAKER) (test code = 760) BASIC METABOLIC [id number] 04:36:00 Test Item Value Reference Range Interpretation [...] S NOT APPLICABLE FOR DIALYSIS PATIEN TS. [id number] 04:22:00 Test Item Value Reference Range Interpretation Comments PHOSPHORUS (BEAKER) (test code = 5.6 mg/dL 2.3-4.7 H 604) [id number] 04:22:00 Test Item Value Reference Range Interpretation Comments MAGNESIUM (BEAKER) (test code = 2.0 mg/dL 1.6-2.6 627) POCT-GLUCOSE [id number] 21:27:00 Test Item Value Reference Range Interpretation Comments POC-GLUCOSE METER 170 mg/dL 70-110 H TESTED AT [place] [id number] (BEAKER) (test code = BRENDA Prieto [place] 1538) [address] POCT-GLUCOSE [id number] 18:29:00 Test Item Value Reference Range Interpretation Comments POC-GLUCOSE METER 315 mg/dL 70-110 H Notified R Cali CARRILLO/TESTED (BEAKER) (test code = AT [facility] [address] [place] 1538) [place] [address] POCT-GLUCOSE [id number] 12:33:00 Test Item Value Reference Range Interpretation Comments POC-GLUCOSE METER 78 mg/dL 70-110 TESTED AT [facility] 6720 (BEAKER) (test code = BRENDA Prieto [facility] [address] 1538) POCT-GLUCOSE [id number] 07:53:00 Test Item Value Reference Range Interpretation Comments POC-GLUCOSE METER 177 mg/dL 70-[address] [facility] 6720 (BEAKER) (test code = BRENDA Prieto [facility] 1538) [address] [id number] 05:58:00 Test Item Value Reference Range Interpretation [...] 20-55 (test code = 2590) BASIC METABOLIC [id number] 05:28:00 Test Item Value Reference Range Interpretation [...] S NOT APPLICABLE FOR DIALYSIS PATIEN TS. [id number] 05:24:00 Test Item Value Reference Range Interpretation Comments PHOSPHORUS (BEAKER) (test code = 7.5 mg/dL 2.3-4.7 H 604) [id number] 05:24:00 Test Item Value Reference Range Interpretation Comments MAGNESIUM (BEAKER) (test code = 2.0 mg/dL 1.6-2.6 627) [id number] 05:12:00 Test Item Value Reference Range Interpretation Comments PARTIAL THROMBOPLASTIN TIME 66.3 seconds 22.5-36.0 H (BEAKER) (test code = 760) CBC W/PLT COUNT & AUTO [id number] 05:00:00 Test Item Value Reference Range Interpretation [...] 0-1 PERCENT (BEAKER) (test code = 2801) [id number] 23:22:00 Test Item Value Reference Range Interpretation Comments PARTIAL THROMBOPLASTIN TIME 64.9 seconds 22.5-36.0 H (BEAKER) (test code = 760) POCT-GLUCOSE [id number] 21:01:00 Test Item Value Reference Range Interpretation Comments POC-GLUCOSE METER 113 mg/dL 70-110 H TESTED AT [place] [address] ([facility]) (test code = [facility] 1538) [address] POCT-GLUCOSE [id number] 17:00:00 Test Item Value Reference Range Interpretation Comments POC-GLUCOSE METER 79 mg/dL 70-110 TESTED AT [place] [address] ([facility]) (test code = [facility] [address] 1538) [id number] 15:58:00 Test Item Value Reference Range Interpretation Comments PARTIAL THROMBOPLASTIN TIME 45.3 seconds 22.5-36.0 H ([facility]) (test code = 760) [id number] 13:49:00 Test Item Value Reference Range Interpretation Comments PARTIAL THROMBOPLASTIN TIME 198.1 seconds 22.5-36.0 HH ([facility]) (test code = 760) POCT-GLUCOSE [id number] 11:52:00 Test Item Value Reference Range Interpretation Comments POC-GLUCOSE METER 201 mg/dL 70-110 H TESTED AT [place] [address] ([facility]) (test code = [facility] 1538) [address] POCT-GLUCOSE [id number] 07:48:00 Test Item Value Reference Range Interpretation Comments POC-GLUCOSE METER 194 mg/dL 70-110 H TESTED AT [facility] 6720 (BEAKER) (test code = [place] 1538) [address] BASIC METABOLIC [id number] 07:26:00 Test Item Value Reference Range Interpretation [...] S NOT APPLICABLE FOR DIALYSIS PATIEN TS. [id number] 07:21:00 Test Item Value Reference Range Interpretation Comments PHOSPHORUS (BEAKER) 6.0 mg/dL 2.3-4.7 H Specimen slightly (test code = 604) hemolyzed HEPATIC FUNCTION [id number] 07:21:00 Test Item Value Reference Range Interpretation [...] Specimen slightly (test code = 347) hemolyzed [id number] 07:20:00 Test Item Value Reference Range Interpretation Comments MAGNESIUM (BEAKER) 2.2 mg/dL 1.6-2.6 Specimen slightly (test code = 627) hemolyzed CBC W/PLT COUNT & AUTO [id number] 07:03:00 Test Item Value Reference Range Interpretation [...] 0-1 PERCENT (BEAKER) (test code = 2801) [id number] 05:37:00 Test Item Value Reference Range Interpretation Comments PROTIME (BEAKER) (test code = 13.7 seconds 11.9-14.2 759) INR (BEAKER) (test code = 370) 1.1 <=5.9 PARTIAL THROMBOPLASTIN TIME 60.9 seconds 22.5-36.0 H ([facility]) (test code = 760) Effective 10/20/2018: PT Reference Range ChangeNew: 11.9-14.2 Previous: 11.7- 14.7RECOMMENDED COUMADIN/WARFARIN INR THERAPY RANGESSTANDARD DOSE: 2.0-3.0 Includes: PROPHYLAXIS for venous thrombosis, systemic embolization; TREATMENT for venous thrombosis and/or pulmonary embolus.HIGH RISK: Target INR is2.5-3.5 for patients wiht mechanical heart valves.POCT-GLUCOSE [id number] 21:36:00 Test Item Value Reference Range Interpretation Comments POC-GLUCOSE METER 130 mg/dL 70-[address] [facility] 6720 ([facility]) (test code = BRENDA [place]ner [place] 1538) [address] [id number] 21:31:00 Test Item Value Reference Range Interpretation Comments PROTIME ([place]) (test code = 13.0 seconds 11.9-14.2 759) INR ([facility]) (test code = 370) 1.0 <=5.9 PARTIAL THROMBOPLASTIN TIME 51.3 seconds 22.5-36.0 H ([facility]) (test code = 760) Effective 10/20/2018: PT Reference Range ChangeNew: 11.9-14.2 Previous: 11.7- 14.7RECOMMENDED COUMADIN/WARFARIN INR THERAPY RANGESSTANDARD DOSE: 2.0-3.0 Includes: PROPHYLAXIS for venous thrombosis, systemic embolization; TREATMENT for venous thrombosis and/or pulmonary embolus.HIGH RISK: Target INR is2.5-3.5 for patients wiht mechanical heart valves.HEPATITIS B SURFACE [id number] 19:20:00 Test Item Value Reference Range Interpretation Comments HEPATITIS B SURFACE ANTIGEN (2) Nonreactive Nonreactive ([facility]) (test code = 2585) [id number] 17:47:00 Test Item Value Reference Range Interpretation Comments PROTIME ([facility]) (test code = 13.2 seconds 11.9-14.2 759) INR ([facility]) (test code = 370) 1.0 <=5.9 PARTIAL THROMBOPLASTIN TIME 71.3 seconds 22.5-36.0 H ([facility]) (test code = 760) Effective 10/20/2018: PT Reference Range ChangeNew: 11.9-14.2 Previous: 11.7- 14.7RECOMMENDED COUMADIN/WARFARIN INR THERAPY RANGESSTANDARD DOSE: 2.0-3.0 Includes: PROPHYLAXIS for venous thrombosis, systemic embolization; TREATMENT for venous thrombosis and/or pulmonary embolus.HIGH RISK: Target INR is2.5-3.5 for patients wiht mechanical heart valves.POCT-GLUCOSE [id number] 16:51:00 Test Item Value Reference Range Interpretation Comments POC-GLUCOSE METER 72 mg/dL 70-[address] [facility] 67 ([facility]) (test code = [facility] [address] 1538) PLATELET AGGREGATION: FUNCTION [id number] 16:05:00 Test Item Value Reference Range Interpretation Comments WEAK ADP 62 % 60-91 RESULT([facility]) (test code = 2135) PLATELET FUNCTION 60-100% indicates SCREEN INTERP ([facility]) normal platelet (test code = 2173) function [id number] Billie Pollock MD ([facility]) (test code = (electronic signature) 4322) PLATELET COUNT AGG 263 K/CU MM 150-450 ([facility]) (test code = 2656) Platelet Function Screen results may be falsely low with platelet counts<100,000/cu mm.POCT-GLUCOSE [id number] 12:37:00 Test Item Value Reference Range Interpretation Comments POC-GLUCOSE METER 206 mg/dL 70-[address] [facility] 6720 (BEAKER) (test code = BR[place] 1538) [address] HEMOGLOBIN [id number] 11:12:00 Test Item Value Reference Range Interpretation Comments HEMOGLOBIN A1C (BEAKER) (test code = 7.4 % 4.3-6.1 H 368) POCT-GLUCOSE [id number] 07:21:00 Test Item Value Reference Range Interpretation Comments POC-GLUCOSE METER 109 mg/dL 70-[address] [facility] 6720 [facility] (test code = BRENDA Pri[place] 1538) [address] BASIC METABOLIC [id number] 06:55:00 Test Item Value Reference Range Interpretation [...] S NOT APPLICABLE FOR DIALYSIS PATIEN TS. [id number] 06:53:00 Test Item Value Reference Range Interpretation Comments MAGNESIUM (BEAKER) 2.5 mg/dL 1.6-2.6 Specimen slightly (test code = 627) hemolyzed [id number] 06:38:00 Test Item Value Reference Range Interpretation [...] 0-0 (BEAKER) (test code = 413) POCT-GLUCOSE [id number] 00:17:00 Test Item Value Reference Range Interpretation Comments POC-GLUCOSE METER 301 mg/dL 70-110 H Notified R Cali CARRILLO/TESTED (BEAKER) (test code = AT [facility] 67[address] [facility] 0463) [place] [address] [id number] 20:44:00 Test Item Value Reference Range Interpretation Comments PARTIAL THROMBOPLASTIN TIME 34.1 seconds 22.5-36.0 (BEAKER) (test code = 760) Prior to initiating heparinPLATELET [id number] 20:37:00 Test Item Value Reference Range Interpretation Comments PLATELET COUNT (BEAKER) (test 257 K/CU MM 150-450 code = 756) POTASSIUM-STAT [id number] 10:59:00 Test Item Value Reference Range Interpretation Comments POTASSIUM (BEAKER) (test code = 5.3 meq/L 3.6-5.5 379) BASIC METABOLIC [id number] 10:19:00 Test Item Value Reference Range Interpretation [...] S NOT APPLICABLE FOR DIALYSIS PATIEN TS. [id number] 10:15:00 Test Item Value Reference Range Interpretation [...] mechanical heart valves.CBC W/PLT COUNT & AUTO [id number] 10:02:00 Test Item Value Reference Range Interpretation [...] code = 2801) MYOCARD IMAGING, MULTI, PHARM, [id number] 16:25:00FINAL REPORT PROCEDURE: MYOCARDIAL PERFUSION SPECT IMAGING (Rest/Stress)CPT CODE: 39164 INDICATION: Renal transplant evaluation CARDIOVASCULAR PROFILE:CAD History: [...] prior study for comparison. Signed: Jose Daniel Grajedaort Verified Date/Time: 09/30/2018 16:25:13 Reading Location: [address] [facility] Room OCCULT BLOOD, [id number] 17:11:00 Test Item Value Reference Range Interpretation Comments FECAL OCCULT BLOOD (BEAKER) (test Positive Negative A code = 618) OCCULT BLOOD, [id number] 17:02:00 Test Item Value Reference Range Interpretation Comments FECAL OCCULT BLOOD (BEAKER) (test Negative Negative code = 618) POCT-GLUCOSE [id number] 11:41:00 Test Item Value Reference Range Interpretation Comments POC-GLUCOSE METER 161 mg/dL 70-110 H TESTED AT [place] [address] ([facility]) (test code = [facility] 1538) [address] HEPATITIS B SURFACE [id number] 08:02:00 Test Item Value Reference Range Interpretation Comments HEPATITIS B SURFACE ANTIGEN (2) Nonreactive Nonreactive [facility] (test code = 2585) For chronic HD patients, draw HBsAg with each admission then every 30 days.POCT- GLUCOSE [id number] 07:52:00 Test Item Value Reference Range Interpretation Comments POC-GLUCOSE METER 98 mg/dL 70-110 TESTED AT [place] [address] [facility] (test code = [facility] [address] 1538) BASIC METABOLIC [id number] 05:13:00 Test Item Value Reference Range Interpretation [...] WBC 0-0 (BEAKER) (test code = 413) [id number] 05:03:00 Test Item Value Reference Range Interpretation Comments MAGNESIUM (BEAKER) 2.6 mg/dL 1.6-2.6 Specimen moderately (test code = 627) hemolyzed POCT-GLUCOSE [id number] 23:31:00 Test Item Value Reference Range Interpretation Comments POC-GLUCOSE METER 109 mg/dL 70-110 TESTED AT [place] [address] ([facility]) (test code = BR[place] 1538) [address] [id number] 20:10:00 Test Item Value Reference Range Interpretation Comments ACTIVATED CLOTTING TIME 131 sec TEST ED AT [place] [address] ([facility]) (test code = BR[place] 441) [address] [id number] 18:55:00 Test Item Value Reference Range Interpretation Comments POTASSIUM ([facility]) (test code = 5.0 meq/L 3.5-5.1 379) [id number] 18:36:00 Test Item Value Reference Range Interpretation Comments ACTIVATED CLOTTING TIME 147 sec TEST ED AT [place] [address] ([facility]) (test code = BR[place] [address]) [address] POCT-GLUCOSE [id number] 16:22:00 Test Item Value Reference Range Interpretation Comments POC-GLUCOSE METER 82 mg/dL 70-110 TESTED AT [place] [address] ([facility]) (test code = [place] [address] 1538) [id number] 15:40:00 Test Item Value Reference Range Interpretation Comments ACTIVATED CLOTTING TIME 208 sec TEST ED AT [place] [address] ([facility]) (test code = BR[place] 441) [address] [id number] 14:31:00 Test Item Value Reference Range Interpretation Comments ACTIVATED CLOTTING TIME 224 sec TEST ED AT [place] [address] ([facility]) (test code = BREN[place] 441) [address] [id number] 14:31:00 Test Item Value Reference Range Interpretation Comments ACTIVATED CLOTTING TIME 411 sec TEST ED AT [place] [address] ([facility]) (test code = BR[place] 441) [address] POCT-GLUCOSE [id number] 13:29:00 Test Item Value Reference Range Interpretation Comments POC-GLUCOSE METER 130 mg/dL 70-110 H TESTED AT [place] [address] ([facility]) (test code = BRENDA [place] 1538) [address] POCT-GLUCOSE [id number] 13:01:00 Test Item Value Reference Range Interpretation Comments POC-GLUCOSE METER 32 mg/dL 70-110 LL Notified R Cali CARRILLO/TESTED AT (BEAKER) (test code = [facility] [address] [place] 1538) [place] [address] CBC W/PLT COUNT & AUTO [id number] 11:07:00 Test Item Value Reference Range Interpretation Comments WHITE BLOOD CELL COUNT (BEAKER) 6.1 K/ L 4.0-10.0 (test code = 775) RED BLOOD CELL COUNT (BEAKER) 3.71 M/ L 4.20-5.80 L (test code [...] 0.00-0.20 (test code = 417) 0.00BASIC METABOLIC [id number] 10:53:00 Test Item Value Reference Range Interpretation [...] S NOT APPLICABLE FOR DIALYSIS PATIEN TS. [id number] 10:44:00 Test Item Value Reference Range Interpretation [...] mechanical heart valves.FLOW PRA CLASS I AND [id number] 11:51:00 Test Item Value Reference Range Interpretation Comments DATE OF SERUM (BEAKER) [id number] (test code = 2289) SERUM # (BEAKER) (test 392315 code = 2290) FLOW PRA CLASS I AND II See Scanned Report (test code = 2421) HLA [id number] 11:51:00 Test Item Value Reference Range Interpretation [...] (BEAKER) (test code = 2583) EBV-VCA ANTIBODY, [id number] 14:35:00 Test Item Value Reference Range Interpretation Comments ROLDAN-THOMAS VCA IGM (BEAKER) (test Negative code = 984) VARICELLA ZOSTER ANTIBODY, [id number] 12:16:00 Test Item Value Reference Range Interpretation Comments VARICELLA ZOSTER IGG (AL) (BEAKER) 1.6 Al (test code = 3197) VARICELLA ZOSTER RESULT INTERPRETATIONS: <=0.8 Al Nonreactive: Presumed non-immune to VZV 0.9-1.0 Al Equivocal >=1.1 Al Reactive: Presumed immune to VZVCYTOMEGALOVIRUS ANTIBODY, [id number] 12:11:00 Test Item Value Reference Range Interpretation Comments CYTOMEGALOVIRUS IGG ANTIBODY Positive (BEAKER) (test code = 790) CYTOMEGALOVIRUS ANTIBODY, [id number] 12:11:00 Test Item Value Reference Range Interpretation Comments CYTOMEGALOVIRUS IGM ANTIBODY Negative (BEAKER) (test code = 816) EBV-VCA ANTIBODY, [id number] 12:11:00 Test Item Value Reference Range Interpretation Comments ROLDAN-THOMAS VCA IGG (BEAKER) (test Positive code = 983) [id number] 11:41:00 Test Item Value Reference Range Interpretation Comments RPR SCREEN (BEAKER) (test code = Nonreactive Nonreactive 420) HEPATITIS B SURFACE [id number] 14:42:00 Test Item Value Reference Range Interpretation Comments HEPATITIS B SURFACE ANTIBODY 9.6 mIU/mL <8.0 H (BEAKER) (test code = 647) HEPATITIS B SURFACE [id number] 14:12:00 Test Item Value Reference Range Interpretation Comments HEPATITIS B SURFACE ANTIGEN (2) Nonreactive Nonreactive (BEAKER) (test code = 2585) HEPATITIS B CORE ANTIBODY, [id number] 14:12:00 Test Item Value Reference Range Interpretation Comments HEPATITIS B CORE IGM ANTIBODY Nonreactive Nonreactive (BEAKER) (test code = 645) HEPATITIS C [id number] 14:12:00 Test Item Value Reference Range Interpretation Comments HEPATITIS C ANTIBODY (BEAKER) Nonreactive Nonreactive (test code = 367) HIV-1 ANTIGEN WITH HIV-1/2 [id number] 14:12:00 Test Item Value Reference Range Interpretation Comments HIV-1 ANTIGEN WITH HIV 1\T\2 Nonreactive Nonreactive ANTIBODY (2) (BEAKER) (test code = 2586) [id number] 14:12:00 Test Item Value Reference Range Interpretation Comments PROSTATE SPECIFIC ANTIGEN (BEAKER) 0.7 ng/mL 0.0-4.0 (test code = 844) COMPREHENSIVE METABOLIC [id number] 13:58:00 Test Item Value Reference Range Interpretation [...] NOT APPLICABLE FOR DIALYSIS PATIEN TS. PTH, [id number] 13:52:00 Test Item Value Reference Range Interpretation Comments PARATHYROID HORMONE INTACT 289.5 pg/mL 8.5-72.5 H (BEAKER) (test code = 577) Effective 04/11/2014: Reference Range ChangeNew: 8.5-72.5 Previous: 15.0-90.0 URIC [id number] 13:52:00 Test Item Value Reference Range Interpretation Comments URIC ACID (BEAKER) (test code = 3.9 mg/dL 2.6-7.2 773) [id number] 13:52:00 Test Item Value Reference Range Interpretation Comments PHOSPHORUS (BEAKER) (test code = 3.3 mg/dL 2.3-4.7 604) LIPID [id number] 13:52:00 Test Item Value Reference Range Interpretation [...] 161 U/L 125-220 code = 635) HEMOGLOBIN [id number] 13:32:00 Test Item Value Reference Range Interpretation Comments HEMOGLOBIN A1C (BEAKER) (test code = 5.9 % 4.3-6.1 368) CBC W/PLT COUNT & AUTO [id number] 13:32:00 Test Item Value Reference Range Interpretation [...] K/ L 0.00-0.20 (test code = 417) [id number] 13:18:00 Test Item Value Reference Range Interpretation [...]
--- NOTE | 2020-08-07 18:11 | RAD REPORT ---
EXAM DESCRIPTION: RAD - Chest Pa And Lat (2 Views) - 08/07/2020 4:49 pm CLINICAL HISTORY: PAIN Chest pain. COMPARISON: Chest Single View dated 04/28/2016; Chest Pa And Lat (2 Views) dated 03/13/2016; CHEST SI NGLE VIEW dated 09/28/2012; ABDOMEN 1 VIEW KUB dated 01/31/2012; Thorax Wo Con dated 08/06/2020 FINDINGS: Moderate pulmonary edema. The heart is moderately enlarged in size. Sternotomy wires are p resent. Mildly displaced left lateral fourth and fifth rib fractures noted, which were present on yes terday's CT study. IMPRESSION: Moderate CHF.
--- NOTE | 2020-08-07 18:13 | RAD REPORT ---
EXAM DESCRIPTION: RAD - Humerus Left - 08/07/2020 4:49 pm CLINICAL HISTORY: PAIN Fall, trauma, pain COMPARISON: No comparisons FINDINGS: No acute fracture or dislocation seen.
[2020-08-07 21:16] LABS: Absolute Lymphocytes (CBC) 0.5 K/uL (0.7-4.9); Hematocrit 32.8 % (39.6-49.0); Lymphocytes % 8.8 % (15.3-44.8); MPV 7.3 fL (7.6-11.3); RBC Red Blood Cell Count 3.72 M/uL (4.33-5.43)
[2020-08-07] MEDS ORDERED: FENTANYL CITR 100 MCG/2 ML ONE (21:31)
[2020-08-07] MEDS ORDERED: ONDANSETRON 4 MG/2 ML VIAL ONE (21:31)
--- NOTE | 2020-08-07 21:33 | ER ---
Nurse's Notes [facility] Name: Shekhar Gambino Age: 55 yrs Sex: Male : 1965 Arrival Date: 08/07/2020 Time: 14:52 Bed 4 Private MD: Izabela Lemos C Diagnosis: Fall due to bumping against object;Altered mental status, unspecified;Multiple fractures of ribs, left side;Type 1 diabetes mellitus;Obesity, unspecified;End stage renal disease-on HD M,W,F;Hyperkalemia Presentation: 08/07 15:05 Chief complaint: Patient states: Fell 10 days ago at the store. Landed on curb. L back, ll1 L shoulder, L arm, L trunk, L chest pain since. States he has been felling unsteady on his feet since last night. States he cannot walk well since yesterday. Coronavirus screen: Client denies travel out of the [place] in the last 14 days. At this time, the client does not indicate any symptoms associated with coronavirus-19. Ebola Screen: Patient denies travel to an Ebola-affected area in the 21 days before illness onset. Initial Sepsis Screen: Does the patient meet any 2 criteria? HR > 90 bpm. No. Patient's initial sepsis screen is negative. Does the patient have a suspected source of infection? Yes: Bone or joint infection. Risk Assessment: Do you want to hurt yourself or someone else? Patient reports no desire to harm self or others. Onset of symptoms was July 28, 2020. 15:05 Method Of Arrival: Wheelchair ll1 15:05 Acuity: AZAEL 3 ll1 21:15 Care prior to arrival: None. Mechanism of Injury: Fall. Trauma event details: Injury ea occurred in the [facility], Injury occurred: at home. Triage Assessment: 15:09 General: Appears uncomfortable, Behavior is calm, cooperative, appropriate for age. ll1 Pain: Complains of pain in Lback/Larm/Ltrunk Pain Quality of pain is described as aching. Neuro: No deficits noted. Cardiovascular: No deficits noted. Musculoskeletal: Circulation, motion, and sensation intact. Capillary refill < 3 seconds, Reports pain in Lback/Ltrunk/Larm. Injury Description: Bruise. Historical: - Allergies: 15:08 Eliquis; ll1 - PMHx: 15:08 Diabetes - IDDM; Dialysis; High Cholesterol; Hypertension; ll1 - PSHx: 15:08 CABG; ll1 - Immunization history:: Client reports receiving the 1st dose of the Covid vaccine, Flu vaccine is not up to date. - Social history:: Smoking status: Patient denies any tobacco usage or history of. - Immunization history: Last tetanus immunization: unknown. Screenin:46 Abuse screen: Denies threats or abuse. Nutritional screening: No deficits noted. ea Tuberculosis screening: No symptoms or risk factors identified. Fall Risk None identified. Primary Survey: 19:46 NO uncontrolled hemorrhage observed. A: The patient is alert. Airway: patent. ea Breathing/Chest: Respiratory pattern: regular, Respiratory effort: spontaneous, unlabored. Circulation: Skin color: pink, Skin temperature: warm. Disability Alert. Exposure/Environment: All clothing and personal items were removed. Forensic evidence collection is not deemed to be indicated at this time. Items placed in patient belonging bag. Obvious injury(ies) are noted at this time: complaining of pain to left chest. 22:15 Reassessment Airway Airway Patent Breathing/Chest Respiratory pattern Regular ea Respiratory effort Spontaneous Unlabored Chest inspection Symmetrical Circulation Color [place] Temperature Warm Disability Alert. Assessment: 15:47 Reassessment: Received VO from Krysten PAYNE for xray. sv 20:00 General: Appears in no apparent distress. Behavior is calm, cooperative. Pain: ea Complains of pain in left lateral anterior chest and left lateral posterior chest. Neuro: Level of Consciousness is awake, confused, Oriented to person, place. Cardiovascular: Patient's skin is warm and dry. Respiratory: Airway is patent Respiratory effort is even, unlabored, Respiratory pattern is regular, symmetrical. Derm: Skin is pink, warm \T\ dry. 22:00 Reassessment: Patient and/or family updated on plan of care and expected duration. Pain ea level reassessed. Pt alert oriented to self and place. Respirations even and unlabored, chest expansions even and symmetrical. 23:00 Reassessment: Patient and/or family updated on plan of care and expected duration. Pain ea level reassessed. Pt alert oriented to self and place. Respirations even and unlabored, chest expansions even and symmetrical. 08/08 00:30 Reassessment: Patient and/or family updated on plan of care and expected duration. Pain ea level reassessed. Pt alert oriented to self and place. Respirations even and unlabored, chest expansions even and symmetrical. 01:40 Reassessment: Patient and/or family updated on plan of care and expected duration. Pain ea level reassessed. Pt resting with eyes closed, respirations even and unlabored. Chest expansions even and symmetrical. No s/s of pain or discomfort noted at this time. Vital Signs: 08/07 15:05 BP 148 / 71; Pulse 93; Resp 18; Temp 98.4; Pulse Ox 98% ; Weight 99.34 kg; Height 5 ft. ll1 6 in. (167.64 cm); Pain 10/10; 22:00 BP 170 / 70; Pulse 79; Resp 18; Pulse Ox 95% ; ea 23:00 BP 150 / 68; Pulse 90; Resp 18; Pulse Ox 97% ; ea 08/08 00:00 BP 148 / 70; Pulse 90; Resp 18; Pulse Ox 98% ; ea 01:00 BP 142 / 72; Pulse 90; Resp 18; Temp 97.8; Pulse Ox 98% ; ea 08/07 15:05 Body Mass Index 35.35 (99.34 kg, 167.64 cm) ll1 [place] Coma Score: 08/07 21:14 Eye Response: spontaneous(4). Verbal Response: oriented(5). Motor Response: obeys ea commands(6). Total: 15. 22:00 Eye Response: spontaneous(4). Verbal Response: oriented(5). Motor Response: obeys ea commands(6). Total: 15. 23:00 Eye Response: spontaneous(4). Verbal Response: oriented(5). Motor Response: obeys ea commands(6). Total: 15. 08/08 00:00 Eye Response: spontaneous(4). Verbal Response: oriented(5). Motor Response: obeys ea commands(6). Total: 15. Trauma Score (Adult): 08/07 21:14 Eye Response: spontaneous(1); Verbal Response: oriented(1); Motor Response: obeys ea commands(2); Systolic BP: > 89 mm Hg(4); Respiratory Rate: 10 to 29 per min(4); [place] Score: 15; Trauma Score: 12 ED Course: 14:52 Patient arrived in ED. mr 14:52 Izabela Lemos MD is Private Physician. mr 15:07 Triage completed. ll1 15:08 Arm band placed on. ll1 16:48 Chest Pa And Lat (2 Views) XRAY In Process Unspecified. EDMS 16:48 Humerus Left XRAY In Process Unspecified. EDMS 19:32 Jessica Rowley, LUCIA is Primary Nurse. ea 19:47 Patient has correct armband on for positive identification. Bed in low position. Call ea light in reach. supervisor wood room on. Pulse ox on. NIBP on. 19:57 Johann Gary MD is Attending Physician. vivienne 21:05 Initial lab(s) drawn, by me, sent to lab. Inserted saline lock: 22 gauge in right hand, em using aseptic technique. Blood collected. 21:15 Patient maintains SpO2 saturation greater than 95% on room air. Thermoregulation: warm ea blanket given to patient. 21:31 Izabela Lemos MD is Hospitalizing Provider. [facility] 08/08 01:34 No provider procedures requiring assistance completed. Patient admitted, IV remains in ea place. Administered Medications: 08/07 21:14 Drug: Zofran (Ondansetron) 4 mg Route: IVP; Site: right hand; ea 22:00 Follow up: Response: No adverse reaction ea 21:16 Drug: fentaNYL (PF) 25 mcg Route: IVP; Site: right hand; ea 22:00 Follow up: Response: No adverse reaction ea 23:00 Drug: Insulin Regular Human 10 units {Co-Signature: em (Jomar Roper RN).} Route: IVP; ea Site: right hand; 08/08 00:17 Follow up: Response: No adverse reaction ea 08/07 23:00 Drug: Kayexalate 45 grams Route: PO; ea 08/09 99:17 Follow up: Response: No adverse reaction ea 08/07 23:00 Drug: Albuterol - atroVENT (ipratropium) (3:1) (2.5 mg - 0.5 mg) 3 ml Route: Nebulizer; ea 08/08 00:17 Follow up: Response: No adverse reaction ea 08/07 23:00 Drug: Lasix 100 mg Route: IVP; Site: right hand; ea 08/08 00:17 Follow up: Response: No adverse reaction ea Intake: 01:35 PO: 0ml; Total: 0ml. ea Outcome: 08/07 21:33 Decision to Hospitalize by Provider. [facility] 08/08 01:34 Admitted to Med/surg accompanied by tech, room 421, with chart, Report called to ea Report given to receiving nurse. Condition: stable Instructed on the need for admit. 01:35 Patient's length of stay was not longer than 2 hours. ea 01:41 Patient left the ED. ea Signatures: Dispatcher [employer] Yessenia Mccoy, Johann Aggarwal RN, MD MD cha Rivera Greta mr Roper, Jomar, RN RN Jessica Gibson RN RN ea Lewis, Lynsay, RN RN 1 Jomar Roper RN
--- NOTE | 2020-08-07 21:33 | EDPHYS ---
Physician Documentation [facility] Name: Shekhar Gambino Age: 55 yrs Sex: Male : 1965 Arrival Date: 08/07/2020 Time: 14:52 Bed 4 Private MD: Izabela Lemos C ED Physician Johann Gary HPI: 08/07 20:29 This 55 yrs old Male presents to ER via Wheelchair with complaints of Fall vivienne Injury. 20:29 Details of fall: The patient fell from an upright position, while standing, while vivienne walking. Onset: The symptoms/episode began/occurred just prior to arrival, this morning. Associated injuries: The patient sustained injury to the chest, left arm, decreased range of motion. Severity of symptoms: At their worst the symptoms were mild. Historical: - Allergies: 15:08 Eliquis; ll1 - PMHx: 15:08 Diabetes - IDDM; Dialysis; High Cholesterol; Hypertension; ll1 - PSHx: 15:08 CABG; ll1 - Immunization history:: Client reports receiving the 1st dose of the Covid vaccine, Flu vaccine is not up to date. - Social history:: Smoking status: Patient denies any tobacco usage or history of. - Immunization history: Last tetanus immunization: unknown. ROS: 20:30 Constitutional: Negative for fever, chills, and weight loss, Eyes: Negative for injury, vivienne pain, redness, and discharge, ENT: Negative for injury, pain, and discharge, Neck: Negative for injury, pain, and swelling, Cardiovascular: Negative for chest pain, palpitations, and edema, Respiratory: Negative for shortness of breath, cough, wheezing, and pleuritic chest pain, Abdomen/GI: Negative for abdominal pain, nausea, vomiting, diarrhea, and constipation, Back: Negative for injury and pain, : Negative for injury, bleeding, discharge, and swelling, Skin: Negative for injury, rash, and discoloration, Psych: Negative for depression, anxiety, suicide ideation, homicidal ideation, and hallucinations, Allergy/Immunology: Negative for hives, rash, and allergies, Endocrine: Negative for neck swelling, polydipsia, polyuria, polyphagia, and marked weight changes. 20:30 MS/extremity: Positive for decreased range of motion, pain, of the left arm. 20:30 Neuro: Positive for altered mental status, weakness. Exam: 20:30 Constitutional: This is a well developed, well nourished patient who is awake, alert, vivienne and in no acute distress. Head/Face: Normocephalic, atraumatic. Eyes: Pupils equal round and reactive to light, extra-ocular motions intact. Lids and lashes normal. Conjunctiva and sclera are non-icteric and not injected. Cornea within normal limits. Periorbital areas with no swelling, redness, or edema. ENT: Nares patent. No nasal discharge, no septal abnormalities noted. Tympanic membranes are normal and external auditory canals are clear. Oropharynx with no redness, swelling, or masses, exudates, or evidence of obstruction, uvula midline. Mucous membranes moist. Neck: Trachea midline, no thyromegaly or masses palpated, and no cervical lymphadenopathy. Supple, full range of motion without nuchal rigidity, or vertebral point tenderness. No Meningismus. Chest/axilla: Normal chest wall appearance and motion. Nontender with no deformity. No lesions are appreciated. Cardiovascular: Regular rate and rhythm with a normal S1 and S2. No gallops, murmurs, or rubs. Normal PMI, no JVD. No pulse deficits. Respiratory: Lungs have equal breath sounds bilaterally, clear to auscultation and percussion. No rales, rhonchi or wheezes noted. No increased work of breathing, no retractions or nasal flaring. Abdomen/GI: Soft, non-tender, with normal bowel sounds. No distension or tympany. No guarding or rebound. No evidence of tenderness throughout. Back: No spinal tenderness. No costovertebral tenderness. Full range of motion. Skin: Warm, dry with normal turgor. Normal color with no rashes, no lesions, and no evidence of cellulitis. Psych: Awake, alert, with orientation to person, place and time. Behavior, mood, and affect are within normal limits. 20:30 Musculoskeletal/extremity: ROM: limited active range of motion, limited passive range of motion, in the left arm. 20:30 Neuro: Orientation: appropriate for stated age, Mentation: slow to respond, Cerebellar function: is grossly normal based on the patient's age, no acute changes, Motor: moves all fours, Gait: not tested. Deep tendon reflexes are 2+ (normal) in the bilateral brachioradialis, bicep, tricep and patellar and Achilles tendons, seizure activity, is not displayed by the patient. 22:27 ECG was reviewed by the Attending Physician. vivienne Vital Signs: 15:05 BP 148 / 71; Pulse 93; Resp 18; Temp 98.4; Pulse Ox 98% ; Weight 99.34 kg; Height 5 ft. ll1 6 in. (167.64 cm); Pain 10/10; 22:00 BP 170 / 70; Pulse 79; Resp 18; Pulse Ox 95% ; ea 23:00 BP 150 / 68; Pulse 90; Resp 18; Pulse Ox 97% ; ea 08/08 00:00 BP 148 / 70; Pulse 90; Resp 18; Pulse Ox 98% ; ea 01:00 BP 142 / 72; Pulse 90; Resp 18; Temp 97.8; Pulse Ox 98% ; ea 08/07 15:05 Body Mass Index 35.35 (99.34 kg, 167.64 cm) ll1 Mildred Coma Score: 08/07 21:14 Eye Response: spontaneous(4). Verbal Response: oriented(5). Motor Response: obeys ea commands(6). Total: 15. 22:00 Eye Response: spontaneous(4). Verbal Response: oriented(5). Motor Response: obeys ea commands(6). Total: 15. 23:00 Eye Response: spontaneous(4). Verbal Response: oriented(5). Motor Response: obeys ea commands(6). Total: 15. 08/08 00:00 Eye Response: spontaneous(4). Verbal Response: oriented(5). Motor Response: obeys ea commands(6). Total: 15. Trauma Score (Adult): 08/07 21:14 Eye Response: spontaneous(1); Verbal Response: oriented(1); Motor Response: obeys ea commands(2); Systolic BP: > 89 mm Hg(4); Respiratory Rate: 10 to 29 per min(4); Mildred Score: 15; Trauma Score: 12 MDM: 19:57 Patient medically screened. vivienne 20:33 Differential diagnosis: abrasion, closed head injury, contusion, sprain, strain, CVA, vivienne electrolyte abnormality, hypoglycemia, intracranial bleed, pneumonia, sepsis, TIA, UTI. Data reviewed: vital signs, nurses notes, old medical records, lab test result(s), EKG, radiologic studies, plain films. Data interpreted: telemetry monitor: rate is 93 beats/min, rhythm is regular, Pulse oximetry: on room air is 98 %. Test interpretation: by ED physician or midlevel provider: ECG, plain radiologic studies. Counseling: I had a detailed discussion with the patient and/or guardian regarding: the historical points, exam findings, and any diagnostic results supporting the discharge/admit diagnosis, lab results, radiology results, the need for further work-up and treatment in the hospital. 08/07 17:52 Order name: Glucose, Ancillary Testing; Complete Time: 19:46 EDOR 08/07 20:29 Order name: Basic Metabolic Panel; Complete Time: 22:10 [facility] 08/07 20:29 Order name: CBC with Diff; Complete Time: 21:28 [facility] 08/07 20:29 Order name: LFT's; Complete Time: 22:10 [facility] 08/07 20:29 Order name: Magnesium; Complete Time: 22:10 [facility] 08/07 20:29 Order name: NT PRO-BNP; Complete Time: 22:10 [facility] 08/07 20:29 Order name: PT-INR; Complete Time: 21:28 [facility] 08/07 20:29 Order name: Troponin (emerg Dept Use Only); Complete Time: 22:10 [facility] 08/07 20:29 Order name: Lipase; Complete Time: 22:10 [facility] 08/07 21:28 Order name: Creatine Phosphokinase; Complete Time: 22:10 [facility] 08/07 21:28 Order name: CKMB Creatine Kinase MB; Complete Time: 22:10 [facility] 08/07 22:11 Order name: COVID-19 : Document "Date of Symptom Onset" if Symptomatic. tt3 08/07 15:47 Order name: Chest Pa And Lat (2 Views) XRAY; Complete Time: 19:46 sv 08/07 15:47 Order name: Humerus Left XRAY; Complete Time: 19:46 sv 08/07 20:29 Order name: EKG; Complete Time: 20:29 [facility] 08/07 20:29 Order name: CT Traumagram (Head C Spine CAP wo con) [facility] 08/07 21:42 Order name: CONS Physician Consult [facility] 08/07 21:50 Order name: INCENTIVE SPIROMETRY [facility] 08/07 22:36 Order name: CORONAVIRUS [facility] 08/07 23:18 Order name: Glucose, Ancillary Testing [facility] 08/07 23:29 Order name: SARS-COV-2 RT PCR [facility] 08/07 20:29 Order name: Cardiac monitoring; Complete Time: 21:19 [facility] 08/07 20:29 Order name: EKG - Nurse/Tech; Complete Time: 01:42 [facility] 08/07 20:29 Order name: IV Saline Lock; Complete Time: 21:19 [facility] 08/07 20:29 Order name: Labs collected and sent; Complete Time: 21: [facility] 08/07 20:29 Order name: O2 Per Protocol; Complete Time: 21: [facility] 08/07 20:29 Order name: O2 Sat Monitoring; Complete Time: 21:19 [facility] 08/07 21:42 Order name: CONS Physician Consult EDOR EC: Rate is 100 beats/min. Rhythm is regular. QRS [place] is Normal. NM interval is normal. vivienne QRS interval is normal. QT interval is normal. No Q waves. T waves are Normal. No ST changes noted. Clinical impression: NSR w/ Non-specific ST/T Changes and No evidence of ischemia. Interpreted by me. Reviewed by me. Administered Medications: 21:14 Drug: Zofran (Ondansetron) 4 mg Route: IVP; Site: right hand; ea 22:00 Follow up: Response: No adverse reaction :16 Drug: fentaNYL (PF) 25 mcg Route: IVP; Site: right hand; ea 22:00 Follow up: Response: No adverse reaction ea 23:00 Drug: Insulin Regular Human 10 units {Co-Signature: em (Jomar Roper RN).} Route: IVP; ea Site: right hand; 08/08 00:17 Follow up: Response: No adverse reaction ea 08/07 23:00 Drug: Kayexalate 45 grams Route: PO; ea 08/08 00:17 Follow up: Response: No adverse reaction ea 08/07 23:00 Drug: Albuterol - atroVENT (ipratropium) (3:1) (2.5 mg - 0.5 mg) 3 ml Route: Nebulizer; ea 08/08 00:17 Follow up: Response: No adverse reaction ea 08/07 23:00 Drug: Lasix 100 mg Route: IVP; Site: right hand; ea 08/08 00:17 Follow up: Response: No adverse reaction ea Disposition: 08/07/20 21:33 Hospitalization ordered by Izabela Lemos for Inpatient Admission. Preliminary diagnosis are Fall due to bumping against object, Altered mental status, unspecified, Multiple fractures of ribs, left side, Type 1 diabetes mellitus, Obesity, unspecified, End stage renal disease - on HD M,W,F, Hyperkalemia. - Bed requested for Telemetry/MedSurg (Inpatient). - Status is Inpatient Admission. ea - Condition is Fair. - Problem is new. - Symptoms have improved. Signatures: Dispatcher [employer] EDOR Krysten Reyes, SPECIALIST ICU-C SPECIALIST ICU-Ckb Kindra Russell RN RN dw Anderson, Corey, MD MD cha Antunez, Elena RN Lucius Holman ea, RN RN ll1 Jomar Roper RN em Corrections: (The following items were deleted from the chart) 08/07 20:34 20:29 Chest Single View+RAD.RAD.BRZ ordered. [facility] EDOR 21:27 20:38 CREATINE PHOSPHOKINASE+C.LAB.BRZ ordered. [facility] EDOR 21:28 20:38 CKMB+C.LAB.BRZ ordered. [facility] EDOR 21:50 21:33 Hospitalization Ordered by A Aminta CARRILLO for Inpatient Admission. Preliminary vivienne diagnosis is Fall due to bumping against object; Altered mental status, unspecified; Multiple fractures of ribs, left side; Type 1 diabetes mellitus; Obesity, unspecified. Bed requested for Telemetry/MedSurg (Inpatient). Status is Inpatient Admission. Condition is Fair. Problem is new. Symptoms have improved. vivienne 22:14 21:50 08/07/2020 21:33 Hospitalization Ordered by A Aminta CARRILLO for Inpatient Admission. vivienne Preliminary diagnosis is Fall due to bumping against object; Altered mental status, unspecified; Multiple fractures of ribs, left side; Type 1 diabetes mellitus; Obesity, unspecified; End stage renal disease - on HD M,W,F. Bed requested for Telemetry/MedSurg (Inpatient). Status is Inpatient Admission. Condition is Fair. Problem is new. Symptoms have improved. vivienne 23:46 22:14 08/07/2020 21:33 Hospitalization Ordered by A Aminta CARRILLO for Inpatient Admission. dw Preliminary diagnosis is Fall due to bumping against object; Altered mental status, unspecified; Multiple fractures of ribs, left side; Type 1 diabetes mellitus; Obesity, unspecified; End stage renal disease - on HD M,W,F; Hyperkalemia. Bed requested for Telemetry/MedSurg (Inpatient). Status is Inpatient Admission. Condition is Fair. Problem is new. Symptoms have improved. vivienne 08/08 01:41 08/07 23:46 08/07/2020 21:33 Hospitalization Ordered by A Aminta CARRILLO for Inpatient ea Admission. Preliminary diagnosis is Fall due to bumping against object; Altered mental status, unspecified; Multiple fractures of ribs, left side; Type 1 diabetes mellitus; Obesity, unspecified; End stage renal disease - on HD M,W,F; Hyperkalemia. Bed requested for Telemetry/MedSurg (Inpatient). Status is Inpatient Admission. Condition is Fair. Problem is new. Symptoms have improved. dw
[2020-08-07 22:06] LABS: ALT/SGPT 13 U/L (12-78); AST/SGOT 10 U/L (15-37); Albumin 2.9 g/dL (3.4-5.0); Alkaline Phosphatase 197 U/L (45-117); BUN Blood Urea Nitrogen 73 mg/dL (7-18); Bicarbonate 21 mmol/L (21-32); Bilirubin Direct 0.1 mg/dL (0-0.2); Bilirubin Total 0.5 mg/dL (0.2-1.0); CKMB Creatine Kinase MB 2.8 ng/mL (0.3-3.6); Creatine Phosphokinase 109 U/L (39-308); Glucose Level 325 mg/dL (74-106); Lipase 90 U/L (73-393); Magnesium 2.9 mg/dL (1.8-2.4); NT PRO-BNP 26703 pg/mL (<125); Protein, Total 7.5 g/dL (6.4-8.2); Sodium Level 126 mmol/L (136-145); Troponin (Emerg Dept Use Only) < 0.02 ng/mL (0.0-0.045)
[2020-08-07] MEDS ORDERED: INSULIN -REGULAR HUMAN 50 UNIT/0.5 ML ML ONE (22:49)
[2020-08-07] MEDS ORDERED: IPRATROPIUM BROM 0.5MG/2.5ML ONE (22:51)
[2020-08-07] MEDS ORDERED: SOD POLYSTYREN SUL 15 GM/60 ML UCUP ONE (22:51)
[2020-08-07] MEDS ORDERED: FUROSEMIDE 100 MG/10 ML VIAL IV ONE (22:51)
[2020-08-07] MEDS ORDERED: ALBUTEROL 2.5 MG/3 ML NEB SOL ONE (22:51)
[2020-08-08] MEDS ORDERED: ALBUTEROL 2.5 MG/3 ML NEB SOL NEB PRN (02:17)
[2020-08-08] MEDS ORDERED: D50W 25 GM/50 ML SYRINGE IV PRN (02:17)
[2020-08-08] MEDS ORDERED: GLUCAGON 1 MG/VIAL IM PRN (02:17)
[2020-08-08] MEDS ORDERED: ACETAMINOPHEN 500 MG TAB PO PRN (02:17)
[2020-08-08] MEDS ORDERED: ONDANSETRON 4 MG/2 ML VIAL IV PRN (02:17)
[2020-08-08] MEDS ORDERED: IPRATROPIUM BROM 0.5MG/2.5ML NEB PRN (02:17)
[2020-08-08] MEDS ORDERED: FENTANYL CITR 100 MCG/2 ML IV PRN (02:17)
[2020-08-08 03:23] VITALS: BMI 35.2
[2020-08-08 03:32] LABS: Absolute Lymphocytes (CBC) 0.5 K/uL (0.7-4.9); Basophils % 0.8 % (0-1.3); Hematocrit 30.3 % (39.6-49.0); Lymphocytes % 8.2 % (15.3-44.8); MPV 7.6 fL (7.6-11.3); RBC Red Blood Cell Count 3.43 M/uL (4.33-5.43)
[2020-08-08 03:58] LABS: Potassium 5.6 mmol/L (3.5-5.1)
--- NOTE | 2020-08-08 07:22 | RAD REPORT ---
EXAM DESCRIPTION: Jarred Single View08/08/2020 6:09 am CLINICAL HISTORY: Chest pain COMPARISON: August 07, 2020 FINDINGS: No significant change in the mild left pulmonary opacities and small left pleural effusio n. The right lung appears clear of acute infiltrate. Heart is enlarged. Postsurgical changes involve the chest
[2020-08-08] MEDS: INSULIN -REGULAR HUMAN 50 UNIT/0.5 ML ML SQ SCH ×4 (08:46→22:38)
[2020-08-08] MEDS: SEVELAMER CARBONATE 800 MG TABLET PO SCH ×3 (08:46→16:46)
[2020-08-08] MEDS: ASPIRIN EC 81 MG TAB PO SCH (08:46)
[2020-08-08] MEDS: GABAPENTIN 300 MG CAP PO SCH ×3 (08:46→22:37)
[2020-08-08] MEDS: CALCIUM ACETATE 667 MG TAB PO SCH ×3 (08:47→16:46)
[2020-08-08] MEDS: HEPARIN 5000 UNIT/ML 1 ML VIAL SQ SCH ×2 (08:47→22:37)
[2020-08-08] MEDS: PANTOPRAZOLE 40MG TABLET PO SCH (08:48)
[2020-08-08] MEDS ORDERED: FUROSEMIDE 100 MG/10 ML VIAL IV SCH (09:00)
[2020-08-08] MEDS: CLOPIDOGREL 75 MG TABLET PO SCH (09:41)
--- NOTE | 2020-08-08 09:41 | RAD REPORT ---
EXAM DESCRIPTION: CT - Head C Spine Cap Ollie Reich - 08/08/2020 7:01 am CLINICAL HISTORY: Pain;Weakness COMPARISON: None. TECHNIQUE: CT HEAD CERVICAL SPINE CHEST ABDOMEN PELVIS WITHOUT IV CONTRAST on 08/07/2020 8:29 PM CDT This exam was performed according to our departmental dose-optimization program, which includes autom ated exposure control, adjustment of the mA and/or kV according to patient size and/or use of iterati ve reconstruction technique. FINDINGS: Brain: There is no acute hemorrhage, mass effect or midline shift. Guajardo-white differentiat ion is preserved. There is no hydrocephalus. There is no significant volume loss for age. The calvarium is intact. Orbits and globes are unremarkable. The paranasal sinuses are clear. Mastoid air cells are clear. Cervical Spine: There is no acute fracture. Alignment is anatomic. Disc spaces are maintained. Vertebral body heights are preserved. Soft tissues are unremarkable. Chest: The heart is enlarged. There is no pericardial effusion. Intrathoracic lymph nodes are not enl arged. There is a trace left pleural effusion. Central airways are patent. There is mostly left basilar airs pace disease. Abdomen: The liver is normal in appearance. There is no biliary dilatation. Cholecystectomy was perfo rmed. The pancreas and spleen are normal in appearance. Adrenal glands are normal. Kidneys are modera tely atrophic. Abdominal aorta is normal in course and caliber without aneurysm. There is no free air. There is no r etroperitoneal adenopathy. Pelvis: There is no bowel obstruction. Urinary bladder is unremarkable. There is no free fluid. There are small fat-containing bilateral inguinal hernias. Appendix is normal. Skeleton: There are nondisplaced fractures of the left lateral fourth and fifth ribs. IMPRESSION: Left rib fractures with left basilar mild airspace disease. This could represent pulmona ry contusion versus aspiration/pneumonia. No definite acute posttraumatic findings within the brain or cervical spine. Electronically signed by: Chavez Lei MD 08/07/2020 10:23 PM CDT Due to temporary technical issues with the PACS/Fluency reporting system, reports are being signed by the in house radiologists without review as a courtesy to insure prompt reporting. The interpreting radiologist is fully responsible for the content of the report.
--- NOTE | 2020-08-08 10:05 | HP ---
Date of Admission: 08/08/2020 Chief Complaint: Recurrent fall and altered mental status. History Of Present Illness: This is a 55-year-old male patient admitted to the hospital after he came into the emergency room yesterday with altered mental status and recurrent fall. The patient came into emergency room on 08/06/2020 with fall and after he was evaluated in the ER, he was released to go home. During that ER visit, he had a shoulder x-ray which was negative for any fracture. CAT scan of the chest showed evidence of fracture of the left side fourth and fifth rib with some underlying pulmonary contusion type of changes. The patient was released to go home from emergency room on 08/06/2020 and yesterday he fell down again at home, so family members called my office and they were advised to bring patient to the emergency room. After he was evaluated, he was admitted to the hospital. When I saw him in the hospital this morning when I entered his room, he was snoring extremely loudly and somewhat difficult to arouse. When he woke up, he was still very sleepy and groggy and he is answering very few questions because he is extremely sleepy and groggy. There was no family member with him at bedside. He could not tell me exactly how he fell on its own. Allergies: NO KNOWN ALLERGIES. Medications: According to last office visit on June 21, 2020 his medication list includes amitriptyline 50 mg at bedtime, aspirin 81 mg daily, atorvastatin 40 mg daily at bedtime, carvedilol 3.125 mg 2 times a day, clopidogrel 75 mg daily, gabapentin 300 mg 3 times a day, omeprazole 20 mg daily, and NovoLog mix 70/30 52 units subcutaneous injection 2 times a day, he takes Renvela and calcium acetate per nature photographer. Review of Systems: VACCINE MANAGER: As mentioned above. Constitutional: As mentioned above. All other systems unable to review because of patient's extreme sleepiness and somewhat confusion. He is also complaining of some left rib cage pain from time to time, but not in pain or distress when I saw him. All other systems unable to review details because of the patient's current condition. Past Medical History: Prior history of stroke, peripheral neuropathy due to diabetes, and patient has history of type 2 diabetes for which he is insulin dependent now. Hypertension, hyperlipidemia, coronary artery disease, gastroesophageal reflux disease, end-stage renal disease, anemia due to chronic kidney disease, anxiety, depression, insomnia, peripheral vascular disease, and osteoarthritis at multiple sites. Past Surgical History: Significant for cataract surgery, coronary artery stent placement, coronary artery bypass surgery, and cholecystectomy. Family History: Father with myocardial infarction, congestive heart failure, diabetes, hypertension. Mother had Alzheimer disease. Sister with colitis. Social History: Negative for smoking. Negative for alcohol use. Physical Examination: Vital Signs: Height 5 feet 6 inches, weight 218 pounds, temperature 98.2, pulse 95, respiratory rate 20, blood pressure 114/47, oxygen saturation 96%. General: Awake, alert, oriented, not in distress. HEENT: Head atraumatic, normocephalic. Conjunctivae nonerythematous. Sclerae white. Mouth, no thrush or edema noted. Ears/Nose, no mass, lesion, discharge noted. Neck: Supple. No JVD, lymph nodes, bruit, thyromegaly noted. Lungs: Bilateral good equal air entry. Clear to auscultation. No rhonchi. No rales. Heart: Normal heart sounds, no murmur or gallop. Abdomen: Soft, bowel sounds normal. No guarding, rigidity, tenderness, mass, hepatosplenomegaly, distention, or bruit noted. Extremities: Left upper extremity has presence of dialysis access in the left arm. Skin: No rash, ulcer, cellulitis. Lymphatics: No lymph node enlargement in neck, supraclavicular, infraclavicular region. Neuro: The patient is difficult to arouse. He does wake up to some extent, answers few questions, but not completely awake, alert, oriented, not in any respiratory distress. Detailed neuro exam not possible because of the patient's current condition. Chest: Unremarkable. External Genitalia: Deferred. Rectal: Deferred. Laboratory Data: Yesterday; white count 6, hemoglobin 10.4, platelets 230. This morning; white count 6.3, hemoglobin 9.8, platelets 216. INR 1. Yesterday; sodium 126, potassium 6, chloride 93, bicarb 21, BUN 73, creatinine 10.2, glucose 325. Liver function tests; AST 10, ALT 13, alkaline phosphatase 197. Troponin less than 0.02. ProBNP 26,703. Lipase 90. This morning; sodium 129, potassium 5.6, chloride 94, bicarb 21, BUN 76, creatinine 10.2, glucose 200. Troponin less than 0.02. ProBNP 32,131. COVID-19 test negative. Chest x-ray; moderate CHF pattern. Humerus x-ray negative for any fracture of the left humerus. Impression: 1. Altered mental status. 2. Left rib fracture, fourth and fifth rib. 3. Pulmonary contusion. 4. Hyponatremia. 5. Hyperkalemia. 6. Anemia due to chronic kidney disease. 7. End-stage renal disease, on hemodialysis. 8. Coronary artery disease. 9. Peripheral vascular disease. 10. Hypertension. 11. Hyperlipidemia. 12. Type 2 diabetes mellitus with chronic kidney disease. 13. Diabetic neuropathy. 14. Gastroesophageal reflux disease. 15. Anxiety. 16. Depression. 17. Insomnia. Plan: We will go ahead and admit patient to hospital for further evaluation and management of this problem. The patient is appropriate for inpatient and is expected to spend 2 midnights in hospital. He had a CAT scan of the head, C- spine, abdomen, pelvis and chest done in emergency room and it has shown left- sided rib fracture with left mild airspace disease could indicate pulmonary contusion versus aspiration pneumonia as per Radiology report. No definite acute posttraumatic finding within brain or cervical spine and no acute intraabdominal findings. We will go ahead and get an ammonia level on him and blood gas. I am concerned about that he may have significant obstructive sleep apnea, which might cause or contribute to this current altered mental status problem and we will consult Dr. Yung from Pulmonary Service to help us evaluate that. We will consult neurologist. Consult Physical therapist and nature photographer for dialysis support. Diabetes will be managed with sliding scale insulin. GEORGINA/MODL Voice ID: [id number] [facility]
[2020-08-08 11:42] LABS: Arterial Blood Carboxyhemoglob 1.7 % (0-1.5); Blood Gas Oxyhemoglobin 90.1 % (94-97)
--- NOTE | 2020-08-08 12:26 | P.CNS ---
Date of Consult: 08/08/20 Reason for Consult: Sleep apnea Chief Complaint: Altered mental status History of Present Illness: Patient is 55 years of age was admitted from the emergency room with altered mental status and a fall he did have some evidence of fracture on the left side possible underlying pulmonary contusion came to the emergency rule this moaning is barely arousable at [place] he has sleep apnea and was does have a CPAP machine at home End-stage renal disease on dialysis patient has bypass surgery cardiomegaly Allergies apixaban [From Eliquis] Allergy (Verified 08/08/20 03:16) Itching/Hives/Rash Home Medications: Calcium Acetate [Phoslo*] 5 cap PO TIDWM 09/29/12 Insulin 70/30 NPH/Reg Human [Novolin 70/30*] 60 unit SQ BID 09/29/12 Melatonin [Melatonin*] 10 mg PO BEDTIME 09/29/12 Omeprazole [Prilosec] 20 mg PO DAILY 09/29/12 Gabapentin [Neurontin] 300 mg PO TID 08/31/14 Sevelamer Carbonate [Renvela] 5 cap PO TIDWM 08/31/14 Amitriptyline [Elavil] 50 mg PO BEDTIME 08/08/20 Aspirin [Aspirin EC 81 MG] 81 mg PO DAILY 08/08/20 Atorvastatin Calcium [Lipitor] 80 mg PO BEDTIME 08/08/20 - Past Medical/Surgical History Diabetic: Yes -: DM IDDM -: ESRD w/ dialysis -: HLD -: HTN -: GERD -: Insomnia -: Diabetic Neuropathy -: CABG - Family History Father Medical History: Diabetes Brother Medical History: Diabetes Sister Medical History: Diabetes - Social History Smoking Status: Never smoker Alcohol use: No CD- Drugs: No Caffeine use: Yes Place of Residence: Home Review of Systems is unable to be obtained Physical Examination Temp Pulse Resp BP Pulse Ox 97.3 F 90 18 120/61 100 08/08/20 08:00 08/08/20 08:00 08/08/20 08:00 08/08/20 08:00 08/08/20 08:00 General: Other (Barely arousable) Neck: Supple Respiratory: Clear to auscultation bilaterally, Diminished Cardiovascular: No edema, Normal S1 S2 Laboratory Data (last 24 hrs) 08/07/20 21:05: PT 11.5, INR 1.00 08/07/20 21:05: WBC 6.00, Hgb 10.4 L, Hct 32.8 L, Plt Count 238 08/07/20 21:05: Sodium 126 L, Potassium 6.0 H*, BUN 73 H, Creatinine 10.20 H*, Glucose 325 H, Magnesium 2.9 H, Total Bilirubin 0.5, AST 10 L, ALT 13, Alkaline Phosphatase 197 H, Lipase 90 - Problems (1) Altered mental status Current Visit: Yes Status: Acute Plan: Patient is 55 years of age admitted with altered mental status on dialysis chronic renal failure creatinine is elevated chest x-ray shows some cardiomegaly up some volume mildly anemic white count is normal vital signs satisfactory room-air saturation is 95% blood gases show mild hypoxemia presume patient's BiPAP CT scan shows presumed chronic pleural thickening on the left side suspect is from the bypass operation empiric treatment with antibiotics as high risk for sepsis due to underlying chronic renal failure serum procalcitonin level Qualifiers: Altered mental status type: unspecified Qualified Code(s): R41.82 - Altered mental status, unspecified
[2020-08-08] MEDS ORDERED: Pharmacy Consult 1 EA XX PRN (12:27)
[2020-08-08] MEDS ORDERED: VANCOMYCIN/NS 1 gm 1 GM/250 ML BAG IV SCH (13:00)
[2020-08-08] MEDS: CEFTRIAXONE/SWI 1gm 1 GM/10 ML SYR IV SCH (13:31)
[2020-08-08] MEDS: CODEINE 30MG/APAP 300MG TAB PO PRN ×2 (13:54→22:38)
--- NOTE | 2020-08-08 16:49 | EKG ---
Test Date: 2020-08-07 Test Time: 21:18:47 Cutter Grinder Operator: JUAN MEASUREMENT RESULTS: Intervals: Rate: 100 NV: 200 QRSD: 98 QT: 334 QTc: 430 [place]: P: 60 NV: 200 QRS: 138 T: 69 INTERPRETIVE STATEMENTS: Normal sinus rhythm Possible Left atrial enlargement Right axis deviation Abnormal ECG Compared to ECG 04/28/2016 17:07:10 No significant changes Electronically Signed On 08-08-20 16:47:42 CDT by Guy Catalan
[2020-08-08] MEDS ORDERED: MELATONIN 3 MG TABLET PO SCH (21:00)
[2020-08-08] MEDS ORDERED: AMITRIPTYLINE 50 MG TAB PO SCH (21:00)
[2020-08-08] MEDS: ATORVASTATIN 80 MG TAB PO SCH (22:38)
--- NOTE | 2020-08-08 23:52 | CON ---
Date of Consultation: 08/08/2020 Reason For Consultation: Hyperkalemia, end-stage renal disease. History Of Present Illness: This is a 55-year-old gentleman, well known to me from dialysis with significant past medical history of end-stage renal disease on hemodialysis, diabetes complicated with neuropathy and nephropathy, hyperlipidemia, coronary artery disease, peripheral vascular disease, osteoarthritis. The patient was in his regular state of health. The patient had a fall a couple of days ago, reported to the emergency room, found to have multiple rib fractures with lung contusion. The patient was taken from the ER to the dialysis unit, was dialyzed for 1 day, tolerated the dialysis very well. Apparently, the patient another fall. For that reason, directed to the hospital, on primary workup found to have altered mental status, sleepy, and elevation in BUN, creatinine, hyperkalemia. For that reason, we have been consulted. We arranged for the patient to have dialysis today. Past Medical History: Includes, 1. Hypertension. 2. Hyperlipidemia. 3. End-stage renal disease. 4. Diabetes complicated with neuropathy and nephropathy. 5. CAD 6. Depression. 7. Insomnia. Home Medications: Include amitriptyline, atorvastatin, gabapentin, omeprazole, insulin. Review of Systems: Not obtainable. Patient is sleepy. Past Surgical History: Includes cataract, CABG, PTCA, and cholecystectomy. Family History: Positive for coronary artery disease, diabetes and hypertension. Social History: Denies smoking. Denies drinking. Denies drugs abuse. Physical Examination: Vital Signs: When I saw the patient, blood pressure of 150/72, pulse of 87, afebrile. Chest: Crackles bilateral. Heart: S1, S2. Systolic murmur. Abdomen: Soft, nontender. Extremities: Trace edema. Neuro: Alert, sleepy, no focality. Laboratory Data: WBC 6.3, H and H 9.8/30.3. Sodium 129, potassium 5.6, bicarb 21, BUN 76, creatinine 10, calcium 8.8. BNP 32,000. Chest x-ray showing cardiomegaly with congestion. Current Medications: The patient on include Plavix, heparin, atorvastatin, amitriptyline, gabapentin, PhosLo, Renvela, Zofran, Zoloft. Assessment And Plan: 1. End-stage renal disease with hyperkalemia, over volume. I am going to arrange for dialysis today. The patient is going to be dialyzed on low potassium bath and we will follow up. The patient is going to be challenged also. 2. Hypertension. We will utilize the blood pressure for ultrafiltration. 3. Hyperkalemia. The patient is going to be dialyzed on low-potassium bath. 4. Hyponatremia, going to be corrected with dialysis. 5. Diabetes, as by primary. 6. Fall. We will follow up with the primary. 7. Lung contusion. Follow up with Pulmonary. 8. Congestive heart failure exacerbation, elevation of BNP. The patient is going to be challenged on the dialysis. Thank you Dr. Lemos for allowing us to participate in the care of your patient. time spent examined the patient face to face s discussed with the patient placed order discussing the case with other seal delivery vehicle team technician including nurses , discussing with other specialist include a hospitalist 75 min KISHORE Voice ID: [id number] Report ID: [id number] FAIZA
[2020-08-09] MEDS: PANTOPRAZOLE 40MG TABLET PO SCH (06:40)
[2020-08-09] MEDS: INSULIN -REGULAR HUMAN 50 UNIT/0.5 ML ML SQ SCH ×4 (07:30→20:45)
[2020-08-09 07:32] LABS: Magnesium 2.6 mg/dL (1.8-2.4)
[2020-08-09 07:38] LABS: Potassium 5.7 mmol/L (3.5-5.1)
[2020-08-09] MEDS: ASPIRIN EC 81 MG TAB PO SCH (08:12)
[2020-08-09] MEDS: CALCIUM ACETATE 667 MG TAB PO SCH ×3 (08:13→16:58)
[2020-08-09] MEDS: GABAPENTIN 300 MG CAP PO SCH (08:13)
[2020-08-09] MEDS: CLOPIDOGREL 75 MG TABLET PO SCH (08:13)
[2020-08-09] MEDS: SEVELAMER CARBONATE 800 MG TABLET PO SCH ×3 (08:13→16:58)
[2020-08-09] MEDS: HEPARIN 5000 UNIT/ML 1 ML VIAL SQ SCH ×2 (08:13→20:46)
[2020-08-09] MEDS: CEFTRIAXONE/SWI 1gm 1 GM/10 ML SYR IV SCH (08:14)
--- NOTE | 2020-08-09 08:55 | P.PN ---
Subjective Date of Service: 08/09/20 Chief Complaint: Altered mental status No change in patient's condition he is responsive alert on BiPAP according to the nurses patient is very and steady Review of Systems General: Weakness Respiratory: Shortness of Breath Physical Examination - Vital Signs Temperature: 97.1 F Blood Pressure: 137/63 Pulse: 88 Respirations: 20 Pulse Ox (%): 100 - Physical Exam General: Alert, Cooperative Respiratory: Clear to auscultation bilaterally, Diminished Cardiovascular: Edema Assessment & Plan - Problems (Diagnosis) (1) Altered mental status Current Visit: Yes Status: Acute Plan: Patient admitted with altered mental status he has caught chronic renal failure the apparently he is very unsteady on his feet eye doctor this is from his obstructive sleep apnea he is not very hypercapnic patient may have and has had a stroke will change him over to nasal cannula oxygen have physical therapy evaluate MRI with contrast also need an MRA to assess the posterior circulation in in addition to carotid Doppler once the cultures are back will Dc antibiotics will discontinue his gabapentin amitriptyline and melatonin for now Ah count 4 is altered mental status Qualifiers: Altered mental status type: unspecified Qualified Code(s): R41.82 - Altered mental status, unspecified
[2020-08-09] MEDS ORDERED: THIAMINE 200 MG/2 ML INJ IVP SCH (09:00)
--- NOTE | 2020-08-09 09:42 | P.PN ---
Subjective Date of Service: 08/09/20 Primary Care Provider: Dr. Lemos(I am covering for him) Chief Complaint: Altered mental status Subjective: Other (improving. Has left hand pain. Alert and cooperative. Still feels sluggish) Physical Examination - Vital Signs Temperature: 97.1 F Blood Pressure: 137/63 Pulse: 88 Respirations: 20 Pulse Ox (%): 100 Assessment & Plan Discharge Plan: Home Plan to discharge in: 24 Hours Physician Review Additional Text: Physical Exam: Patient alert, cooperative. Heart: Regular rate rhythm Lungs: Clear to auscultation. Poor inspiration. Pain to the left ribcage GI: Soft nontender nondistended Extremities: Pain to the left ribcage. Pain to the left index finger. History of deformity to the left middle finger. Reports some balance problems. Impression: Recurrent falls with left 4th Ed 5th rib fracture with pulmonary contusion Left hand pain suspect fracture Increased somnolence suspect underlying obstructive sleep apnea Acute on Chronic diastolic CHF Altered mental status suspect metabolic encephalopathy related to multiple issues Diabetes mellitus type 2 insulin-dependent Hyperlipidemia End-stage renal disease on hemodialysis with hyperkalemia Diabetic neuropathy Plan: Recurrent falls with left 4th Ed 5th rib fracture with pulmonary contusion: Physical therapy and occupational therapy to evaluate. Need to rule out acute stroke. MRI ordered. Await Neurology recommendations along with physical therapy. Patient has pain to the left hand. Will obtain x-ray to evaluate for fracture. Anticipate improvement over the next 24 hr. Likely requires home health and physical therapy at discharge. Left hand pain suspect fracture: Will obtain x-ray. Physical therapy to evaluate and assess. Increased somnolence suspect underlying obstructive sleep apnea: Case discussed with pulmonology. Continue CPAP at night. Patient would benefit with CPAP at night as an outpatient. Altered mental status suspect metabolic encephalopathy related to multiple issues: Continue with dialysis. Patient to be evaluated for stroke. MRI pending. Physical therapy to evaluate and assess. Diabetes mellitus type 2 insulin-dependent: A1c 9.0. Sliding scale in place. Will monitor closely. Acute on chronic diastolic CHF: Continue dialysis. Patient appears to be mildly overloaded. Hyperlipidemia: Continue medication End-stage renal disease on hemodialysis with hyperkalemia: Patient to continue with dialysis. Nephrology consulted. Diabetic neuropathy: Neurontin was held due to possible increased somnolence. Time Spent Managing Pts Care (In Minutes): 55
--- NOTE | 2020-08-09 11:13 | RAD REPORT ---
EXAM DESCRIPTION: - CP - 08/09/2020 10:49 am CLINICAL HISTORY: Possible stroke Headache, drowsiness, CVA symptomology COMPARISON: Head C Spine Mpr Wo Con dated 04/28/2016 TECHNIQUE: Real-time sonographic evaluation of both carotid systems was performed. Doppler interroga tion was performed with waveform tracing bilaterally. FINDINGS: Normal high resistance waveforms are noted in both external carotid arteries. The common c arotid arteries and internal carotid arteries show normal low resistance waveforms. Mild hard plaque is seen right carotid bulb. Mild to moderate hard plaque is seen left carotid bulb. Peak systolic and end diastolic velocity values and the ICA/CCA ratios are in the non-hemodynamically significant range. Antegrade flow seen in both vertebral arteries. IMPRESSION: Bilateral hard plaquing is noted involving both carotid bulbs, greater on the right. No evidence of a hemodynamically significant stenosis.
--- NOTE | 2020-08-09 11:28 | RAD REPORT ---
EXAM DESCRIPTION: RAD - Hand Left 3 View - 08/09/2020 10:54 am CLINICAL HISTORY: recent falls, index finger with pain COMPARISON: Hand Left 3 View dated 03/08/2020; Hand Left 3 View dated 10/28/2019 FINDINGS: There is a significant degree of soft tissue swelling along the dorsum of the hand as well as involving the fingers, particularly the second and third digit. Erosive changes with subluxation and angulation again noted involving the PIP joint of the third finger. Underlying erosive arthropath y is suspected. No acute fracture or dislocation.
[2020-08-09] MEDS: CODEINE 30MG/APAP 300MG TAB PO PRN ×2 (11:34→18:04)
[2020-08-09] MEDS: ATORVASTATIN 80 MG TAB PO SCH (20:45)
--- NOTE | 2020-08-09 23:04 | P.PN ---
Subjective Date of Service: 08/10/20 Primary Care Provider: Dr. Lemos(I am covering for him) Chief Complaint: Altered mental status Subjective: No new changes Physical Examination - Vital Signs Temperature: 98.0 F Blood Pressure: 109/46 Pulse: 95 Respirations: 19 Pulse Ox (%): 93 - Physical Exam General: In no apparent distress HEENT: Atraumatic, Normocephalic Neck: Supple, Without JVD or thyroid abnormality Respiratory: Clear to auscultation bilaterally Cardiovascular: No murmurs Neurological: Other (Non-focal) Assessment And Plan - Plan # ESRD on HD Cont HD TTS Monitor renal panel # Recurrent falls w/ blunt injuries Mngt per other services # Acute decompensated HF UF via HD as tolerated # Anemia Monitor H/H # DM2 Mngt per other services Physician Review Additional Text: Physical Exam: Patient alert, cooperative. Heart: Regular rate rhythm Lungs: Clear to auscultation. Poor inspiration. Pain to the left ribcage GI: Soft nontender nondistended Extremities: Pain to the left ribcage. Pain to the left index finger. History of deformity to the left middle finger. Reports some balance problems. Impression: Recurrent falls with left 4th Ed 5th rib fracture with pulmonary contusion Left hand pain suspect fracture Increased somnolence suspect underlying obstructive sleep apnea Acute on Chronic diastolic CHF Altered mental status suspect metabolic encephalopathy related to multiple issues Diabetes mellitus type 2 insulin-dependent Hyperlipidemia End-stage renal disease on hemodialysis with hyperkalemia Diabetic neuropathy Plan: Recurrent falls with left 4th Ed 5th rib fracture with pulmonary contusion: Physical therapy and occupational therapy to evaluate. Need to rule out acute stroke. MRI ordered. Await Neurology recommendations along with physical therapy. Patient has pain to the left hand. Will obtain x-ray to evaluate for fracture. Anticipate improvement over the next 24 hr. Likely requires home health and physical therapy at discharge. Left hand pain suspect fracture: Will obtain x-ray. Physical therapy to evaluate and assess. Increased somnolence suspect underlying obstructive sleep apnea: Case discussed with pulmonology. Continue CPAP at night. Patient would benefit with CPAP at night as an outpatient. Altered mental status suspect metabolic encephalopathy related to multiple issues: Continue with dialysis. Patient to be evaluated for stroke. MRI pending. Physical therapy to evaluate and assess. Diabetes mellitus type 2 insulin-dependent: A1c 9.0. Sliding scale in place. Will monitor closely. Acute on chronic diastolic CHF: Continue dialysis. Patient appears to be mildly overloaded. Hyperlipidemia: Continue medication End-stage renal disease on hemodialysis with hyperkalemia: Patient to continue with dialysis. Nephrology consulted. Diabetic neuropathy: Neurontin was held due to possible increased somnolence.
[2020-08-10] MEDS: PANTOPRAZOLE 40MG TABLET PO SCH (05:51)
[2020-08-10 06:15] LABS: Absolute Lymphocytes (CBC) 0.6 K/uL (0.7-4.9); Basophils % 0.7 % (0-1.3); Hematocrit 30.1 % (39.6-49.0); Lymphocytes % 12.1 % (15.3-44.8); MPV 7.6 fL (7.6-11.3); RBC Red Blood Cell Count 3.43 M/uL (4.33-5.43)
[2020-08-10 06:33] LABS: Magnesium 2.4 mg/dL (1.8-2.4); Potassium 4.8 mmol/L (3.5-5.1)
[2020-08-10] MEDS: SEVELAMER CARBONATE 800 MG TABLET PO SCH ×2 (08:01→11:25)
[2020-08-10] MEDS: CALCIUM ACETATE 667 MG TAB PO SCH ×2 (08:01→11:24)
[2020-08-10] MEDS: ASPIRIN EC 81 MG TAB PO SCH (08:01)
[2020-08-10] MEDS: CEFTRIAXONE/SWI 1gm 1 GM/10 ML SYR IV SCH (08:02)
[2020-08-10] MEDS: HEPARIN 5000 UNIT/ML 1 ML VIAL SQ SCH ×2 (08:02→08:16)
[2020-08-10] MEDS: CLOPIDOGREL 75 MG TABLET PO SCH (08:02)
[2020-08-10] MEDS: INSULIN -REGULAR HUMAN 50 UNIT/0.5 ML ML SQ SCH ×2 (08:03→11:38)
[2020-08-10] MEDS ORDERED: THIAMINE HCL 100 MG TABLET PO SCH (09:00)
[2020-08-10] MEDS ORDERED: FOLIC ACID 1 MG TABLET PO SCH (09:00)
[2020-08-10 09:07] VITALS: BP 136/63; TEMP 97
--- NOTE | 2020-08-10 10:51 | P.DS ---
Admission Date: 08/07/20 Discharge Date: 08/10/20 Primary Care Provider: Dr. Lemos(I am covering for him) Disposition: ROUTINE DISCHARGE Discharge Condition: GOOD Reason for Admission: Altered mental status Consultations: Pulmonary-Dr. Yung Nephrology-Dr. Kulkarni Procedures: COVID: Negative CT scan: FINDINGS: Brain: There is no acute hemorrhage, mass effect or midline shift. Guajardo-white differentiation is preserved. There is no hydrocephalus. There is no significant volume loss for age. The calvarium is intact. Orbits and globes are unremarkable. The paranasal sinuses are clear. Mastoid air cells are clear. Cervical Spine: There is no acute fracture. Alignment is anatomic. Disc spaces are maintained. Vertebral body heights are preserved. Soft tissues are unremarkable. Chest: The heart is enlarged. There is no pericardial effusion. Intrathoracic lymph nodes are not enlarged. There is a trace left pleural effusion. Central airways are patent. There is mostly left basilar airspace disease. Abdomen: The liver is normal in appearance. There is no biliary dilatation. Cholecystectomy was performed. The pancreas and spleen are normal in appearance. Adrenal glands are normal. Kidneys are moderately atrophic. Abdominal aorta is normal in course and caliber without aneurysm. There is no free air. There is no retroperitoneal adenopathy. Pelvis: There is no bowel obstruction. Urinary bladder is unremarkable. There is no free fluid. There are small fat-containing bilateral inguinal hernias. Appendix is normal. Skeleton: There are nondisplaced fractures of the left lateral fourth and fifth ribs. IMPRESSION: Left rib fractures with left basilar mild airspace disease. This could represent pulmonary contusion versus aspiration/pneumonia. No definite acute posttraumatic findings within the brain or cervical spine. Left Hand Xray: COMPARISON: Hand Left 3 View dated 03/08/2020; Hand Left 3 View dated 10/28/2019 FINDINGS: There is a significant degree of soft tissue swelling along the dorsum of the hand as well as involving the fingers, particularly the second and third digit. Erosive changes with subluxation and angulation again noted involving the PIP joint of the third finger. Underlying erosive arthropathy is suspected. No acute fracture or dislocation. Left Humerus ray: COMPARISON: No comparisons FINDINGS: No acute fracture or dislocation seen. Carotid doppler: FINDINGS: Normal high resistance waveforms are noted in both external carotid arteries. The common carotid arteries and internal carotid arteries show normal low resistance waveforms. Mild hard plaque is seen right carotid bulb. Mild to moderate hard plaque is seen left carotid bulb. Peak systolic and end diastolic velocity values and the ICA/CCA ratios are in the non-hemodynamically significant range. Antegrade flow seen in both vertebral arteries. IMPRESSION: Bilateral hard plaquing is noted involving both carotid bulbs, greater on the right. No evidence of a hemodynamically significant stenosis. MRI brain: Could not be done due to recent stent. Follow up CXR: COMPARISON: August 07, 2020 FINDINGS: No significant change in the mild left pulmonary opacities and small left pleural effusion. The right lung appears clear of acute infiltrate. Heart is enlarged. Postsurgical changes involve the chest Medical Problem List: Recurrent falls with left 4th Ed 5th rib fracture with pulmonary contusion Left hand pain suspect fracture Increased somnolence suspect underlying obstructive sleep apnea Acute on Chronic diastolic CHF Altered mental status suspect metabolic encephalopathy related to multiple issues Diabetes mellitus type 2 insulin-dependent Hyperlipidemia End-stage renal disease on hemodialysis with hyperkalemia Diabetic neuropathy Brief History of Present Illness: 55 year old male was admitted from the emergency room with altered mental status and a falls. He did have some evidence of fracture on the left side possible underlying pulmonary contusion, patient was admitted for further evaluation and treatment. Hospital Course: Patient presented with Recurrent falls with left 4th,5th rib fracture with pulmonary contusion. No further complications noted. Patient was seen by pulmonology. No intervention was required. No evidence of stroke noted. Patient work with physical therapy and occupational therapy. Continue with recommendations by physical therapy. Will set up home health and physical therapy prior to discharge. Left hand showed some erosive changes. No fracture noted. Patient will be provided a limited supply of Tylenol #3 1 pill 3 times a day as needed for pain. Fall precautions in place. Continue home health and physical therapy at discharge. Patient had increased somnolence. This was likely related to obstructive sleep apnea. This was complicated with medications Elavil and Neurontin. Both have been discontinued. Patient will continue with CPAP at night. No further recommendations by pulmonology at this time. Altered mental status likely related to increased somnolence from medication. Continue with above recommendation. Patient with end-stage renal disease on hemodialysis. Continue with dialysis as directed. Nephrology was consulted. Patient received dialysis during his stay. Continue with current medications. Patient with diabetes mellitus type 2 insulin dependent. A1c 9.0. At discharge he will continue with his current medications of NovoLog 70/30 60 units subcu twice daily. Recommend to maintain blood sugar less than 40 fasting and less than 200 after meals. Patient with hyperlipidemia. At discharge patient will continue with medication Lipitor 80 mg daily. Patient with acute on chronic diastolic CHF. At discharge patient will continue with dialysis directed. At discharge she will continue with a 1500 cc per day fluid restriction and low-salt diet. No need for diuretic therapy at this time. Patient with GERD. At discharge patient will continue with Prilosec 20 mg daily. Patient with diabetic neuropathy. Elavil and Neurontin were discontinued due to increased somnolence. PCP to further monitor and address as an outpatient. Vital Signs/Physical Exam: Temp Pulse Resp BP Pulse Ox 97 F 88 16 136/63 96 08/10/20 08:00 08/10/20 08:00 08/10/20 08:00 08/10/20 08:00 08/10/20 08:00 General: Alert, In no apparent distress, Oriented x3, Cooperative HEENT: Atraumatic Neck: Supple Respiratory: Clear to auscultation bilaterally, Normal air movement Cardiovascular: Normal pulses, Regular rate/rhythm Gastrointestinal: Normal bowel sounds, Soft and benign, Non-distended, No tenderness, No masses, No rebound, No guarding Integumentary: Other (Mild swelling to the left index and middle finger. Pain controlled.) Neurological: Normal speech, Normal strength at 5/5 x4 extr, Normal tone, Normal affect Laboratory Data at Discharge: WBC 5.30 K/uL (4.3-10.9) D 08/10/20 05:17 Hgb 9.7 g/dL (13.6-17.9) L 08/10/20 05:17 Hct 30.1 % (39.6-49.0) L 08/10/20 05:17 Plt Count 214 K/uL (152-406) 08/10/20 05:17 PT 11.5 SECONDS (9.5-12.5) 08/07/20 21:05 INR 1.00 08/07/20 21:05 Sodium 135 mmol/L (136-145) L 08/10/20 05:17 Potassium 4.8 mmol/L (3.5-5.1) 08/10/20 05:17 BUN 38 mg/dL (7-18) H 08/10/20 05:17 Creatinine 6.32 mg/dL (0.55-1.3) H* D 08/10/20 05:17 Glucose 188 mg/dL (74-106) H 08/10/20 05:17 Magnesium 2.4 mg/dL (1.8-2.4) 08/10/20 05:17 Total Bilirubin 0.5 mg/dL (0.2-1.0) 08/07/20 21:05 AST 10 U/L (15-37) L 08/07/20 21:05 ALT 13 U/L (12-78) 08/07/20 21:05 Alkaline Phosphatase 197 U/L (45-117) H 08/07/20 21:05 Troponin I < 0.02 ng/mL (0.0-0.045) 08/08/20 06:51 Lipase 90 U/L (73-393) 08/07/20 21:05 Home Medications: Calcium Acetate [Phoslo*] 5 cap PO TIDWM 09/29/12 Insulin 70/30 NPH/Reg Human [Novolin 70/30*] 60 unit SQ BID 09/29/12 Melatonin [Melatonin*] 10 mg PO BEDTIME 09/29/12 Omeprazole [Prilosec] 20 mg PO DAILY 09/29/12 Sevelamer Carbonate [Renvela*] 5 cap PO TIDWM 08/31/14 Aspirin [Aspirin EC 81 MG] 81 mg PO DAILY 08/08/20 Atorvastatin Calcium [Lipitor] 80 mg PO BEDTIME 08/08/20 Codeine/APAP [Tylenol #3*] 1 tab PO Q6H PRN #10 tab 08/10/20 Folic Acid 1 mg PO DAILY #90 tablet 08/10/20 New Medications: Folic Acid 1 mg PO DAILY #90 tablet Codeine/APAP [Tylenol #3*] 1 tab PO Q6H PRN #10 tab PRN Reason: Pain Scale 5-7 (Moderate) Physician Discharge Instructions: Patient presented with Recurrent falls with left 4th,5th rib fracture with pulmonary contusion. No further complications noted. Patient was seen by pulmonology. No intervention was required. No evidence of stroke noted. Patient work with physical therapy and occupational therapy. Continue with recommendations by physical therapy. Will set up home health and physical therapy prior to discharge. Left hand showed some erosive changes. No fracture noted. Patient will be provided a limited supply of Tylenol #3 1 pill 3 times a day as needed for pain. Fall precautions in place. Continue home health and physical therapy at discharge. Patient had increased somnolence. This was likely related to obstructive sleep apnea. This was complicated with medications Elavil and Neurontin. Both have been discontinued. Patient will continue with CPAP at night. No further recommendations by pulmonology at this time. Altered mental status likely related to increased somnolence from medication. Continue with above recommendation. Patient with end-stage renal disease on hemodialysis. Continue with dialysis as directed. Nephrology was consulted. Patient received dialysis during his stay. Continue with current medications. Patient with diabetes mellitus type 2 insulin dependent. A1c 9.0. At discharge he will continue with his current medications of NovoLog 70/30 60 units subcu twice daily. Recommend to maintain blood sugar less than 40 fasting and less than 200 after meals. Patient with hyperlipidemia. At discharge patient will continue with medication Lipitor 80 mg daily. Patient with acute on chronic diastolic CHF. At discharge patient will continue with dialysis directed. At discharge she will continue with a 1500 cc per day fluid restriction and low-salt diet. No need for diuretic therapy at this time. Patient with GERD. At discharge patient will continue with Prilosec 20 mg daily. Patient with diabetic neuropathy. Elavil and Neurontin were discontinued due to increased somnolence. PCP to further monitor and address as an outpatient. Diet: ADA Activity: Fall precautions Followup: Jorge Lemos MD [Primary Care Provider] - Time spent managing pt's care (in minutes): 55
[2020-08-10 11:20] VITALS: O2SAT 93
--- NOTE | 2020-08-10 13:00 | P.PN ---
Subjective Date of Service: 08/11/20 Primary Care Provider: Dr. Lemos(I am covering for him) Chief Complaint: Altered mental status Subjective: No new changes Physical Examination - Vital Signs Temperature: 97 F Blood Pressure: 136/63 Pulse: 88 Respirations: 16 Pulse Ox (%): 96 - Physical Exam General: In no apparent distress HEENT: Atraumatic, Normocephalic Neck: Supple, Without JVD or thyroid abnormality Respiratory: Clear to auscultation bilaterally Cardiovascular: No murmurs Gastrointestinal: Soft and benign, Non-distended Musculoskeletal: No clubbing Neurological: Normal tone Assessment And Plan - Plan # ESRD on HD Cont HD TTS Monitor renal panel # Recurrent falls w/ blunt injuries Mngt per other services # Acute decompensated HF UF via HD as tolerated # Anemia Monitor H/H # DM2 Mngt per other services # Dispo Ok to dc today Physician Review Additional Text: Physical Exam: Patient alert, cooperative. Heart: Regular rate rhythm Lungs: Clear to auscultation. Poor inspiration. Pain to the left ribcage GI: Soft nontender nondistended Extremities: Pain to the left ribcage. Pain to the left index finger. History of deformity to the left middle finger. Reports some balance problems. Impression: Recurrent falls with left 4th Ed 5th rib fracture with pulmonary contusion Left hand pain suspect fracture Increased somnolence suspect underlying obstructive sleep apnea Acute on Chronic diastolic CHF Altered mental status suspect metabolic encephalopathy related to multiple issues Diabetes mellitus type 2 insulin-dependent Hyperlipidemia End-stage renal disease on hemodialysis with hyperkalemia Diabetic neuropathy Plan: Recurrent falls with left 4th Ed 5th rib fracture with pulmonary contusion: Physical therapy and occupational therapy to evaluate. Need to rule out acute stroke. MRI ordered. Await Neurology recommendations along with physical therapy. Patient has pain to the left hand. Will obtain x-ray to evaluate for fracture. Anticipate improvement over the next 24 hr. Likely requires home health and physical therapy at discharge. Left hand pain suspect fracture: Will obtain x-ray. Physical therapy to evaluate and assess. Increased somnolence suspect underlying obstructive sleep apnea: Case discussed with pulmonology. Continue CPAP at night. Patient would benefit with CPAP at night as an outpatient. Altered mental status suspect metabolic encephalopathy related to multiple issues: Continue with dialysis. Patient to be evaluated for stroke. MRI pending. Physical therapy to evaluate and assess. Diabetes mellitus type 2 insulin-dependent: A1c 9.0. Sliding scale in place. Will monitor closely. Acute on chronic diastolic CHF: Continue dialysis. Patient appears to be mildly overloaded. Hyperlipidemia: Continue medication End-stage renal disease on hemodialysis with hyperkalemia: Patient to continue with dialysis. Nephrology consulted. Diabetic neuropathy: Neurontin was held due to possible increased somnolence.
[2020-08-13 03:38] LABS: HBsAG Nonreactive (Nonreactive)
== END 2020-08-10 16:33 | disposition home health service (06) | DRG 205 ==
LOC: ER 14:44 → ERHOLD 21:36 → 4TH 08-08 00:02
PROVIDERS: ADMIT Internal Medicine; ATTEND Family Medicine
PROC: 5A09457 Assistance with Respiratory Ventilation, 24-96 Consecutive Hours, Continuous Positive Airway Pressure (ICD-10-PCS; principal; 2020-08-07)
PROC: 5A1D70Z Performance of Urinary Filtration, Intermittent, Less than 6 Hours Per Day (ICD-10-PCS; 2020-08-09)
DX: S27.329A Contusion of lung, unspecified, initial encounter (principal); N18.6 End stage renal disease; I50.33 Acute on chronic diastolic (congestive) heart failure; G93.41 Metabolic encephalopathy; S22.42XA Multiple fractures of ribs, left side, initial encounter for closed fracture; E87.1 Hypo-osmolality and hyponatremia; I13.2 Hypertensive heart and chronic kidney disease with heart failure and with stage 5 chronic kidney disease, or end stage renal disease; E11.22 Type 2 diabetes mellitus with diabetic chronic kidney disease; E11.51 Type 2 diabetes mellitus with diabetic peripheral angiopathy without gangrene; E11.42 Type 2 diabetes mellitus with diabetic polyneuropathy; K21.9 Gastro-esophageal reflux disease without esophagitis; I25.10 Atherosclerotic heart disease of native coronary artery without angina pectoris; E87.5 Hyperkalemia; M19.90 Unspecified osteoarthritis, unspecified site; E78.5 Hyperlipidemia, unspecified; G47.00 Insomnia, unspecified; F41.9 Anxiety disorder, unspecified; G47.33 Obstructive sleep apnea (adult) (pediatric); F32.9 Major depressive disorder, single episode, unspecified; D63.1 Anemia in chronic kidney disease; S62.92XA Unspecified fracture of left hand, initial encounter for closed fracture; W18.00XA Striking against unspecified object with subsequent fall, initial encounter; R09.02 Hypoxemia; Z99.2 Dependence on renal dialysis; Z88.8 Allergy status to other drugs, medicaments and biological substances; Z91.81 History of falling; Z95.1 Presence of aortocoronary bypass graft; Z79.82 Long term (current) use of aspirin; Z79.02 Long term (current) use of antithrombotics/antiplatelets; Z95.5 Presence of coronary angioplasty implant and graft; Z79.899 Other long term (current) drug therapy; Z79.4 Long term (current) use of insulin; Z86.73 Personal history of transient ischemic attack (TIA), and cerebral infarction without residual deficits; Z90.49 Acquired absence of other specified parts of digestive tract; Z20.822 Contact with and (suspected) exposure to COVID-19
CPT/HCPCS: 36415; 70450; 71045; 71046; 71250; 72125; 80048; 80076; 80202; 82140; 82550; 82553; 82805; 82947; 83036; 83690; 83735; 83880; 84145; 84443; 84484; 85025; 85610; 86317; 86705; 87040; 87205; 87340; 90935; 93005; 93880; 94010; 94660; 94760; 96374; 96375; 97112; 97116; 97161; 97165; 97530; 99284; 99285; G0257; J0696; J1644; J2405; J3010; J3370; J3411; U0003

== ENCOUNTER 2020-11-21 09:14 | Emergency (ER) | payer OTHER ==
--- OUTSIDE RECORDS SUMMARY | 2020-11-21 09:21 | XMS REPORT | Continuity of Care Document ---
:1965 Author Organization [facility] t Address [address] [place] [address] [place] [address] Care Team Providers Name Role Phone Sarita Lemos MD Primary Care Physician GRACIELA Attending Clinician Unavailable Donald Attending Clinician Unavailable Karlo LYON Attending Clinician Unavailable Indio Attending Clinician Unavailable Ruel MEDINAP Attending Clinician RADHA Attending Clinician Unavailable ERIC HARDING Attending Clinician Unavailable RADHA Admitting Clinician Unavailable Payers Payer Name Policy Type Policy Effective Date Expiration Date Sour ce Number HUMANA MEDICARE [id number] 2020 ADVANTAGE 00:00:00 MEDICAREMEDICARE A [id number] 2009 DINAH Og [id number] 00:00:00 - Medical resentMedicare Center HUMANA - MGD [id number] 2020 DINAH Jung [facility] PPO SELECT 00:00:00 - Tam case [id number] 2020- Ce nter resentPPO Problems Condition Condition Condition Status Onset Resolution Last Treating Co mments Source Name Details Category Date Date Treatment Clinician Date Coronary Coronary Disease [facility] - disease disease 00:[facility]: Medical 00 Center S/P CABG x S/P CABG x Disease Active [facility] 4 by 4 by 11-08 [place]es - Dipak on Dipak on 00:00: Medi yann 11/08/18 11/08/18 00 Center Respirator Respirator Disease Active [facility] y y 11-08 [facility] - insufficie insufficie 00:00: Me dical ncy ncy 00 Center Hyperglyce Hyperglyce Disease Active [facility] lise lise 11-08 [facility] - 00:00: Medical 00 Center Acute Acute Disease Active [facility] blood loss blood loss 11-08 Kailee kes - anemia anemia 00:00: Medical 00 Center SE SE Disease Active [facility] (obstructi (obstructi 11-04 Kailee kes - ve sleep ve sleep 00:00: Medica l apnea) apnea) 00 Center CVD CVD Disease Active [facility] (cerebrova (cerebrova - Kailee kes - scular scular 00:00: Medical disease) disease) 00 Center CAD CAD Disease Active [facility] (coronary (coronary 11-03 Luke [facility] - artery artery 00:00: Medical disease) disease) 00 Center 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 Active [facility] St chronic chronic 5-24 [facility] - kidney kidney 00:00: Medical disease(28 disease(28 00 Ce nter 5.21) 5.21) GERD GERD Disease Active [facility] (gastroeso (gastroeso 5-24 Kailee kes - phageal phageal 00:00: Medical reflux reflux 00 Center disease) disease) Obesity Obesity Disease Active [facility] St (BMI (BMI 5-24 Assessmen [facility] - 35.0-39.9 35.0-39.9 00:00: t & Plan: M edical without without 00 He was Center comorbidit comorbidit encourage y) y) d to monitor his intake and exercise as tolerated . 585.6 ESRD Diagnosis Active 2011-09-12 Grupo /16932 4-16 05:50:00 l 585.6 00:00: [place] ESRD /21699 Active 09/08/2011 [facility] NONE. Diagnosis Active 2011-07-09 Mem oria 1-12 20:56:00 l NONE. 00:00: [place] 00 Active 06/05/2011 [facility] ESRD Diagnosis Active 2010-052011-06-03 Mem oria 2- 11:03:00 l ESRD 00:00: [place] 00 Active 05/22/2011 [facility] WK UP Diagnosis Active 2010-052011-04-22 Mem oria 1- 13:10:00 l WK UP 00:00: [place] 00 Active 03/27/2011 [facility] CLINIC Diagnosis Active 2010-052011-03-25 Mem oria 05-25 12:32:00 l CLINIC 00:00: [place] 00 Active 03/25/2011 [facility] SEE LAB Diagnosis Active 2011-02-20 Me moria SHEET IN 02-12 08:04:00 l YELLOW SEE LAB 00:00: [place] FILE SHEET IN 00 FOLDER YELLOW FILE FOLDER Active 02/12/2011 [facility] ESRD . Diagnosis Active 2011-04-22 Mem oria 8- 06:23:00 l ESRD 00:00: [place] 00 . Active 1 [facility] PRE RENAL Diagnosis Active 2011-07-13 Memoria TRANSPLANT 12-11 15:19:00 l PRE 07:00: [place] RENAL 00 TRANSPLANT Active 12/11/2010 [facility] END STAGE Diagnosis Active 2011-09-12 Memoria RENAL 05:50:00 l DISEASE END [place] STAGE RENAL DISEASE Active [facility] Allergies, Adverse Reactions, Alerts Allergy Allergy Status Severity Reaction(s) Onset Inactive Treating Comm ents Source Name Type Date Date Clinician No Known DA Active [facility] Allergie 07-31 [place] s 00:00: d 00 [facility] apixaban DA Active [facility] 07-31 [place] 00:00: d 00 [facility] No Known No Known Active Memori a Medicati Medicati l on on [place] Allergie Allergie s s Family History Family Member Diagnosis Comments Start Date Stop Date Source Natural father Diabetes [facility] Natural father Heart disease [facility] Natural father Hypertension [facility] Social History Social Habit Start Date Stop Date Quantity Comments Source Sex Assigned At [facility] Tobacco use and 2020-08-08 2020-08-08 Never used [facility] - exposure 00:00:00 00:00:00 [facility] Alcohol intake 2020-08-08 2020-08-08 Current [facility] es - 00:00:00 00:00:00 non-drinker of Medical Ce nter alcohol (finding) Smoking Status Start Date Stop Date Source Never smoker [facility] Medications Ordered Filled Start Stop Current Ordering Indication Dosage Frequency Signature Comments Components Source Medication Medication Date Date Medication? Clinician (SIG) Name Name calcium Yes See Memoria acetate 667 7-23 Instructio l MG Oral 22:48: ns, TAKE 4 Herm kp Capsule 00 TABLETS WITH MEAL 3 TIMES A DAY, # 360 unknown unit, 11 Refill(s), Pharmacy: [facility] STORE [id number] acetaminoph Yes 1{tbl} Take 1 CH I [...] 20 MG 11:22: daily. Medical capsule 05 Center melatonin 3 Yes 1mg QD Take [address] mg Tab 7-25 by mouth [facility] - tablet 11:22: nightly. Medical 05 Center midodrine Yes 10mg Take [address] (PROAMATINE 7-25 by mouth Luke s - ) 10 MG 11:22: every Medical tablet 05 Thursday, Center Thursday, Thursday 30 minutes before dialysis IN ADDITION TO REGULAR 5 MG DOSE. amitriptyli Yes 50mg QD Take [address] ne (ELAVIL) 7-25 by mouth Luke s - 10 MG 11:22: nightly . Medical tablet 05 [place] atorvastati Yes 40mg QD Take [address] n (LIPITOR) 7-25 by mouth Luke s - 40 MG 11:22: daily. Medical tablet 05 [place] carvedilol Yes 3.125mg Take 3.[address] (COREG) 7-25 mg by [facility]ukes - 3.125 MG 11:22: mouth 2 Medica l tablet 05 (two) Center times daily with breakfast and dinner. midodrine Yes 5mg Q.[id number] Take [address] (PROAMATINE 7-25 [id number] by mouth 3 [facility] - ) 5 MG 11:22: 3D (three) Medical tablet 05 times Center daily. aspirin 81 Yes 81mg QD Take [address] MG EC 7-25 by mouth [facility] - tablet 11:22: daily. [address] epoetin Yes [id number] Inject [address] mey-epbx 6-24 mL (10,000 Luke s - (RETACRIT) 00:00: Units Medica l 10,000 00 total) [place] unit/mL subcutaneo Soln usly 3 injection (three) times a week at bedtime. gabapentin Yes 100mg QD Take [address] (NEURONTIN) 6-23 capsule [facility] - 100 MG 00:00: (100 mg Medical capsule 00 total) by Center mouth daily. insulin Yes 14U Inject [facility] aspart 6-22 0.14 mLs [facility] - protamine-i 00:00: (14 Units M edical nsulin 00 total) [place] aspart subcutaneo (NOVOLOG usly 2 MIX 70/30) (two) 100 unit/mL times (70-30) daily with Soln breakfast injection and dinner. ticagrelor Yes 90mg Q.5D Take 1 [facility] t (BRILINTA) 7-12 tablet (90 Divine es - 90 mg Tab 00:00: mg total) Med ical tablet 00 by mouth 2 Center (two) times daily. fentanyl No Timmy 25 Memori a 4-17 Maxi microgram, l 21:01: Cuco Route: Nathaniel n 00 IVP, ONCE, Start date: 09/09/11 16:01:00, Stop date: 09/09/11 16:01:00 ondansetron No Timmy 4 mg, Me moria -17 Maxi Route: IV, l 21:00: Cuco PURA, [place] Start date: 09/09/11 16:00:00, Stop date: 09/09/11 16:00:00 Valium 2010-05 No H John 5 mg, Memori a 06-22 Abdirahman Route: PO, l 22:00: PRE OP, [place] Start date: 04/22/11 16:00:00 diphenhydrA 2010-05 No H John 50 mg, Memoria MINE 06-22 Abdirahman Route: PO, l 22:00: PRE OP, [place] Start date: 04/22/11 16:00:00, Duration: 30 day, Stop date: 05/22/11 15:59:00 Lexapro 2010-05 Yes Substituti Arvind jessica 06-22 on Allowed l 20:40: [place] 38 temazepam 2010-05 Yes Substituti Me moria 06-22 on Allowed l 20:40: [place] 27 LORAzepam 2010-05 Yes Substituti Me moria 06-22 on Allowed l 20:40: [place] 14 calcitriol 2010-05 Yes 1 cap, PO, M emoria 0.5 mcg 06-22 Daily, 90 l oral 20:39: [place] arechiga capsule 57 Substituti on Allowed, CAP metoclopram 2010-05 Yes Substituti Memoria mar 06-22 on Allowed l 20:39: [place] 44 amLODipine 2010-05 Yes 1 tab, PO, M emoria 5 mg oral 06-22 Daily, 90 l tablet 20:39: [place] pablo 30 Substituti on Allowed, TAB metoprolol 2010-05 Yes 1 tab, PO, M emoria 50 mg oral 06-22 BID, 180 l tablet 20:39: [place] pablo 01 Substituti on Allowed, TAB ondansetron 2010-05 No Husnu 4 mg, 2 Me moria 06-22 Evren mL, Route: l 15:33: Ever IVP, Drug Nathaniel n 00 form: INJ, Q8H, PRN Nausea & Vomiting, Start date: 04/22/11 9:33:00, Duration: 30 day, Stop date: 05/22/11 9:32:00 morphine 2010- No Husnu 2 mg, 1 Memor ia Sulfate 06-22 Evren mL, Route: l 15:33: [place] IVP, Drug Nathaniel n 00 form: INJ, ONCE, Start date: 04/22/11 9:33:00, Stop date: 04/22/11 9:33:00 acetaminoph 2010- No Husnu 2 tab, Mem oria en-codeine 06-22 Evren Route: PO, l #3 15:33: Ever Drug Form: Sangeetha nn 00 TAB, Q4H, PRN Pain Score 6-10, Start date: 04/22/11 9:33:00, Duration: 30 day, Stop date: 05/22/11 9:32:00 pneumococca 2008-0 No Prince C 0.5 ml, Memoria l 23-valent 4-12 Grotta Route: IM, l vaccine 14:00: Drug Form: Herm kp 00 INJ, ONCE, Start date: 09/03/08 9:00:00, Stop date: 09/03/08 9:00:00 Vital Signs Vital Name Observation Time Observation Value Comments Source Body height 2020-08-08 09:26:00 165.1 cm [facility] Body weight 2020-08-08 09:26:00 99.338 kg [facility] BMI 2020-08-08 09:26:00 36.44 kg/m2 [facility] Diastolic (mm Hg) 2011-09-09 21:15:00 Mem orial [place] Systolic (mm Hg) 2011-09-09 21:15:00 Arvind rial [place] Respitory Rate 2011-09-09 21:15:00 Memori al [place] Diastolic (mm Hg) 2011-09-09 21:00:00 Mem orial [place] Systolic (mm Hg) 2011-09-09 21:00:00 Arvind rial [place] Respitory Rate 2011-09-09 21:00:00 Memori al [place] Diastolic (mm Hg) 2011-09-09 20:45:00 Mem orial [place] Systolic (mm Hg) 2011-09-09 20:45:00 Arvind rial [place] Respitory Rate 2011-09-09 20:45:00 Memori al [place] Temperature Oral (F) 2011-09-09 13:45:00 99.1 F Memorial [place] Height 2011-09-08 20:37:00 167.64 cm Memorial [place] Weight 2011-09-08 20:37:00 Memorial [place] Weight 2011-06-17 13:53:00 Memorial [place] Height 2011-06-17 13:53:00 167.64 cm [facility] [place] Diastolic (mm Hg) 2011-06-03 17:15:00 Mem orial [place] Systolic (mm Hg) 2011-06-03 17:15:00 Arvind rial [place] Respitory Rate 2011-06-03 17:15:00 Memori al [place] Systolic (mm Hg) 2011-06-03 16:45:00 Arvind rial [place] Diastolic (mm Hg) 2011-06-03 16:45:00 Mem orial [place] Respitory Rate 2011-06-03 16:45:00 Memori al [place] Respitory Rate 2011-06-03 16:15:00 Memori al [place] Diastolic (mm Hg) 2011-06-03 16:15:00 Mem orial [place] Systolic (mm Hg) 2011-06-03 16:15:00 Arvind rial [place] Temperature Oral (F) 2011-06-03 15:16:00 99.1 F Memorial [place] Height 2011-06-03 13:01:00 167.64 cm [facility] [place] Weight 2011-06-03 13:01:00 [facility] [place] Temperature Oral (F) 2011-06-03 13:00:00 98.1 F [facility] [place] Weight 2011-04-23 00:52:00 [facility] [place] Height 2011-04-23 00:52:00 170.18 cm [facility] [place] Diastolic (mm Hg) 2011-04-22 19:45:00 Mem orial [place] Systolic (mm Hg) 2011-04-22 19:45:00 Arvind rial [place] Diastolic (mm Hg) 2011-04-22 19:30:00 Mem orial [place] Systolic (mm Hg) 2011-04-22 19:30:00 Arvind rial [place] Diastolic (mm Hg) 2011-04-22 19:15:00 Mem orial [place] Systolic (mm Hg) 2011-04-22 19:15:00 Arvind clifton Argueta Procedures This patient has no known procedures. Plan of Care Planned Activity Planned Date Details Comments Source Future Scheduled 2021-01-[address] [facility] - Test 00:00:00 (Season Ended) [code = Medic al Center INFLUENZA VACCINE (Season Ended)] Future Scheduled 2020-05-[address] [facility] - Test 00:00:00 (12+) [code = Medical Center DEPRESSION SCREENING (12+)] Future Scheduled 2019-10-[address] [facility] - Test 00:00:00 (procedure) [code = Medical Center 08805691] Future Scheduled 2019-06-[address] [facility] - Test 00:00:00 malignant neoplasm [facility] colon (procedure) [code = 502887388] Future Scheduled 2019-05-[address] Kailee kes - Test 00:00:00 measurement [facility] Center (procedure) [code = 94880926] Future Scheduled 2017 SHINGLES VACCINES (1 CHI [...] 00:00:00 examination Medical Center (regime/therapy) [code = 026358873] Future Scheduled 1977 Urine screening for [facility] - Test 00:00:00 protein (procedure) Medical Center [code = 124260633] Future Scheduled [address] [facility] - Test 00:00:00 0-64 YRS (1 of 1 - Medical C enter PPSV23) [code = PNEUMOCOCCAL VACCINE 0-64 YRS (1 of 1 - PPSV23)] Encounters Start End Encounter Admission Attending Care Care Encounter Source Date/Time Date/Time Type Type Clinicians Facility Department ID 2020-11-01 Outpatient [facility] [id number] [place] 10:36:56 Health 2020-10-05 Outpatient GRACIELA, [facility] [id number] [place] 10:50:50 [facility] 2020-11-07 2020-11-07 Refill BERNABE Dietrich [facility] [id number] 00:00:00 00:00:00 Miladis [facility] [id number] IRONMAN [id number] [facility] [id number] 1 2020-11-01 2020-11-01 Office BERNABE Ball [facility] [id number] 09:40:07 12:10:45 Visit [facility] [id number] MEGHA [id number] [facility] [id number] 2019-12-15 2019-12-16 Outpatient [facility] MG [id number] 17:48:04 17:48:04 15 2019-07-28 2019-07-28 Office HEBER Lipscomb [id number] 11:24:51 16:32:38 Visit [facility] [id number] Y 0.2.7.2.686 [id number] 2018-12-14 2018-12-14 Office HEBER Lipscomb [id number] 11:15:58 13:39:25 Visit [facility] [id number] Y 0.2.7.2.686 [id number] Results Test Description Test Time Test Comments Results Result Comments Source SURG 2020-08-02 14:55:00 Test Item Value Reference Range Interpretation Comme nts SURG RUN (test DATE: 08/02/20 [facility] LAB PAGE 1 RUN code = TIME: 1455 Specimen Inquiry RUN USER: INTERFACE SURG) DION ENT: MATTHEW BLACKMAN LOC: [place] U #: [id number] AGE/SX: 55/M ROOM: RE08/01/20[facility] DR: Vitaly Cheek MD : 69 BED : DIS: STATUS: DEP [facility] TLOC: SPEC #: 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 ASCENDING COLON - ASCENDING COLON POLYP CLINICAL HISTORY SCREENING FOR MALIGNANT NEOPLASM - Z12.11; Z01.818 CPT CODES CPT CODE(S ): 87979 , , , , , , FINAL [...] A2 and A3. ba/nr Grossing performed at [facility] Pathology, [facility], [address], CONTINUED ON NEXT PAGE RUN DATE: 08/02/20 [facility] PAGE 2 RUN TIME: 1455 Specimen Inquiry RUN USER: INTERFACE SPEC #: [facility]:[id number] PATIENT: MATTHEW BLACKMAN #[id number] (Continued) ------- [facility] (Continued) [place], [place] [address]. Vocational Counselor: Miguel Brown MICROSCOPIC DESCRIPTION Ascending colon polyp. Sections demonstrate colonic mucosa w ith glands demonstrating crowded, hyperchromatic, pseudostratified nuclei. No evidence of high-grade dysplasia or patricia gnancy is seen. - Signed SIGNATURE ON FILE SamJuan M 08/02/20 1455 END OF REPORT GLUCOSE BEDSIDE [id number] 09:26:00 Test Item Value Reference Range Interpretation Comments GLUCOSE BEDSIDE TESTING (test code 198 mg/dL 70-110 H = GLUBED) [id number] 07:58:00 Test Item Value Reference Range Interpretation Comments POTASSIUM (test code = K) 4.9 mmol/L 3.4-5.0 N BASIC METABOLIC [id number] 11:52:00 Test Item Value Reference Range Interpretation [...] 9.3 MG/DL 8.5-10.1 N COVID 19 INHOUSE [id number] 11:43:00 Test Item Value Reference Range Interpretation Comments COVID 19 INHOUSE AG NEGATIVE Negative Per manu facturer, (test code = negative result s should [id number]) be treated aspr esumptive and, if inconsi [...] Spec Comments: PRE OPComments to Phleb: PATPROTHROMBIN [id number] 11:29:00 Test Item Value Reference Range Interpretation Comments PT PATIENT (test code = PTP) 10.9 SECONDS 9.3-12.9 N INTERNATIONAL NORMAL RATIO 0.97 INR Unit 0.8-1.2 N (test code = INR) THROMBOPLASTIN TIME [id number] 11:29:00 Test Item Value Reference Range Interpretation Comments THROMBOPLASTIN TIME PARTIAL 32.7 SECONDS 26-35 N (test code = PTT) CBC W/AUTO [id number] 11:17:00 Test Item Value Reference Range Interpretation [...] CRITERIA = MDIFF) MYOCARD IMAGING, MULTI, PHARM, [id number] 16:38:00FINAL REPORT PROCEDURE: MYOCARDIAL PERFUSION SPECT IMAGING (Rest/Stress)CPT CODE: 08415 INDICATION: Evaluation in advance of renal transplant [...] appears fixed and involves the apex. Signed: Rakesh Grajeda MDReport Verified Date/Time: 03/31/2019 16:38:15 Reading Location: [address] Reading Room POCT-GLUCOSE [id number] 11:51:00 Test Item Value Reference Range Interpretation Comments POC-GLUCOSE METER 136 mg/dL 70-[address] [facility] 67 ([facility]) (test code = BRENDA Prieto [facility] 1538) [address] POCT-GLUCOSE [id number] 08:41:00 Test Item Value Reference Range Interpretation Comments POC-GLUCOSE METER 157 mg/dL 70-110 H TESTED AT [place] [address] ([facility]) (test code = BRENDA Prieto [facility] 1538) [address] POCT-GLUCOSE [id number] 06:47:00 Test Item Value Reference Range Interpretation Comments POC-GLUCOSE METER 130 mg/dL 70-110 H TESTED AT [place] [address] ([facility]) (test code = [facility] Conner [facility] 1538) [address] BASIC METABOLIC [id number] 05:20:00 Test Item Value Reference Range Interpretation [...] PATIEN TS. CBC W/PLT COUNT & AUTO [id number] 04:42:00 Test Item Value Reference Range Interpretation [...] PERCENT (BEAKER) (test code = 2801) POCT-GLUCOSE [id number] 19:39:00 Test Item Value Reference Range Interpretation Comments POC-GLUCOSE METER 88 mg/dL 70-[address] [facility] 6720 (BEAKER) (test code = [place] [address] 1538) BASIC METABOLIC [id number] 15:34:00 Test Item Value Reference Range Interpretation [...] PATIEN TS. CBC W/PLT COUNT & AUTO [id number] 15:20:00 Test Item Value Reference Range Interpretation [...] PERCENT (BEAKER) (test code = 2801) POCT-GLUCOSE [id number] 12:47:00 Test Item Value Reference Range Interpretation Comments POC-GLUCOSE METER 140 mg/dL 70-110 H TESTED AT [place] [address] ([facility]) (test code = BRENDA Prieto [facility] 1538) [address] POCT-GLUCOSE [id number] 08:21:00 Test Item Value Reference Range Interpretation Comments POC-GLUCOSE METER 107 mg/dL 70-110 TESTED AT [place] [address] ([facility]) (test code = BRENDA Prieto [facility] 1538) [address] POCT-GLUCOSE [id number] 22:25:00 Test Item Value Reference Range Interpretation Comments POC-GLUCOSE METER 97 mg/dL 70-110 TESTED AT [place] [address] ([facility]) (test code = BRENDA Prieto [facility] [address] 1538) POCT-GLUCOSE [id number] 18:02:00 Test Item Value Reference Range Interpretation Comments POC-GLUCOSE METER 264 mg/dL 70-[address] [facility] 6720 ([place]) (test code = BRENDA [address] 1538) [address] EEG AWAKE AND [id number] 12:26:00Reason for exam:->EncephalopathyDATE OF TEST: 11-11-2018 DATE OF REPORT: 11-11-2018 EEG: [id number] 19-1114 Start time: 9:31AM Stop time: 9:54AM ICD-10: R41.82 CPT Code: 01012 HISTORY: 53 year old male with CAD [...] recorded. Umu Logan M.D. Neurophysiology Attending POCT-GLUCOSE [id number] 10:29:00 Test Item Value Reference Range Interpretation Comments POC-GLUCOSE METER 164 mg/dL 70-[address] [facility] 67[address] ([place]) (test code = BRENDA [address] 1538) [address] BASIC METABOLIC [id number] 05:28:00 Test Item Value Reference Range Interpretation [...] PATIEN TS. CBC W/PLT COUNT & AUTO [id number] 04:59:00 Test Item Value Reference Range Interpretation [...] PERCENT (BEAKER) (test code = 2801) POCT-GLUCOSE [id number] 21:43:00 Test Item Value Reference Range Interpretation Comments POC-GLUCOSE METER 158 mg/dL 70-110 H TESTED AT [place] [address] (BEAKER) (test code = [facility] 1538) [address] POCT-GLUCOSE [id number] 20:10:00 Test Item Value Reference Range Interpretation Comments POC-GLUCOSE METER 132 mg/dL 70-110 H TESTED AT [place] [address] (BEAKER) (test code = [facility] 1538) [address] BASIC METABOLIC [id number] 17:58:00 Test Item Value Reference Range Interpretation [...] PATIEN TS. CBC W/PLT COUNT & AUTO [id number] 17:00:00 Test Item Value Reference Range Interpretation [...] (test code = 2801) CT, BRAIN, WITHOUT [id number] 14:50:00Reason for exam:->decreased alertnessWhat is the patient's [...] MDReport Verified Date/Time: 11/10/2018 14:50:39 Reading Location: [address] Neuro Reading Room BLOOD GAS, [id number] 13:34:00 Test Item Value Reference Range Interpretation [...] mmol/L -2.0-3.0 code = 704) PATIENT TEMPERATURE ([facility]) (test 37.0 C code = 1818) POCT-GLUCOSE [id number] 09:04:00 Test Item Value Reference Range Interpretation Comments POC-GLUCOSE METER 108 mg/dL 70-110 TESTED AT [place] [address] ([facility]) (test code = JAKELESIA Prieto [facility] 1538) [address] POCT-GLUCOSE [id number] 03:53:00 Test Item Value Reference Range Interpretation Comments POC-GLUCOSE METER 114 mg/dL 70-110 H TESTED AT [place] [address] ([facility]) (test code = BRENDA Prieto [facility] 1538) [address] POCT-GLUCOSE [id number] 20:13:00 Test Item Value Reference Range Interpretation Comments POC-GLUCOSE METER 246 mg/dL 70-110 H TESTED AT [place] [address] ([facility]) (test code = BANNERLESIA Prieto [facility] 1538) [address] POCT-GLUCOSE [id number] 20:06:00 Test Item Value Reference Range Interpretation Comments POC-GLUCOSE METER 198 mg/dL 70-110 H TESTED AT [place] [address] ([facility]) (test code = [facility] Conner [facility] 1538) [address] [id number] 16:20:00 Test Item Value Reference Range Interpretation Comments POTASSIUM (BEAKER) (test code = 4.1 meq/L 3.5-5.1 379) Call Nephrology for > 5.2BLOOD GAS, [id number] 16:07:00 Test Item Value Reference Range Interpretation [...] (test code = 1819) 32.0 % POCT-GLUCOSE [id number] 15:58:00 Test Item Value Reference Range Interpretation Comments POC-GLUCOSE METER 182 mg/dL 70-[address] [facility] 6720 (BEAKER) (test code = BRENDA Prieto [place] 1538) [address] POCT-GLUCOSE [id number] 15:58:00 Test Item Value Reference Range Interpretation Comments POC-GLUCOSE METER 124 mg/dL 70-[address] [facility] 6720 (BEAKER) (test code = BRENDA Prieto [place] 1538) [address] [id number] 12:51:00 Test Item Value Reference Range Interpretation Comments POTASSIUM (BEAKER) (test code = 3.4 meq/L 3.5-5.1 L 379) Call Nephrology for > 5.2BLOOD GAS, [id number] 12:39:00 Test Item Value Reference Range Interpretation [...] (BEAKER) (test code = 1819) 36.0 % [id number] 10:39:00 Test Item Value Reference Range Interpretation Comments FERRITIN (BEAKER) (test code = 1987 ng/mL 5-275 H 361) POCT-GLUCOSE [id number] 10:38:00 Test Item Value Reference Range Interpretation Comments POC-GLUCOSE METER 116 mg/dL 70-[address] [facility] 6720 (BEAKER) (test code = BRENDA ELLER 1538) [address] IRON, TIBC, % SAT. (WITHOUT FERRITIN)2018-11-09 10:10:00 Test Item Value Reference Range Interpretation Comments IRON (BEAKER) (test code = 547) 33.0 ug/dL 40.0-160.0 L TOTAL IRON BINDING CAPACITY 174 ug/dL 250-450 L (BEAKER) (test code = 769) IRON % SATURATION (2) (BEAKER) 19 % 20-55 L (test code = 2590) [id number] 09:58:00 Test Item Value Reference Range Interpretation Comments POTASSIUM (BEAKER) (test code = 4.9 meq/L 3.5-5.1 379) Call Nephrology for > [id number] 08:15:00 Test Item Value Reference Range Interpretation Comments POTASSIUM (BEAKER) (test code = 5.4 meq/L 3.5-5.1 H 379) Call Nephrology for > 5.2BLOOD GAS, [id number] 07:57:00 Test Item Value Reference Range Interpretation [...] 40.0 % RAD, CHEST, 1 VIEW, NON [id number] 07:53:00while patient is intubated or has chest [...] MDReport Verified Date/Time: 11/09/2018 07:53:31 Reading Location: [facility] Radiology Reading Room POCT-GLUCOSE [id number] 07:10:00 Test Item Value Reference Range Interpretation Comments POC-GLUCOSE METER 118 mg/dL 70-110 H TESTED AT [address] (test code = BRENDA Prieto [facility] 1538) [address] POCT-GLUCOSE [id number] 06:27:00 Test Item Value Reference Range Interpretation Comments POC-GLUCOSE METER 115 mg/dL 70-110 H TESTED AT [address]) (test code = BRENDA Prieto [place] 1538) [address] [id number] 06:20:00 Test Item Value Reference Range Interpretation Comments ACTIVATED CLOTTING TIME 109 sec TEST ED AT [place] [address] ([facility]) (test code = BRENDA Prieto [place] 441) [address] [id number] 06:20:00 Test Item Value Reference Range Interpretation Comments ACTIVATED CLOTTING TIME 417 sec TEST ED AT [place] [address] ([facility]) (test code = BRENDA Prieto [place] 441) [address] [id number] 06:20:00 Test Item Value Reference Range Interpretation Comments ACTIVATED CLOTTING TIME 461 sec TEST ED AT [place] [address] ([facility]) (test code = BRENDA Prieto [place] 441) [address] [id number] 06:20:00 Test Item Value Reference Range Interpretation Comments ACTIVATED CLOTTING TIME 516 sec TEST ED AT [place] [address] ([facility]) (test code = BRENDA Prieto [place] 441) [address] [id number] 06:19:00 Test Item Value Reference Range Interpretation Comments ACTIVATED CLOTTING TIME 494 sec TEST ED AT [place] [address] ([facility]) (test code = BR[place] 441) [address] [id number] 06:19:00 Test Item Value Reference Range Interpretation Comments ACTIVATED CLOTTING TIME 378 sec TEST ED AT [place] [address] ([facility]) (test code = BRENDA Prieto [place] 441) [address] LACTIC ACID, [id number] 06:14:00 Test Item Value Reference Range Interpretation Comments LACTATE BLOOD 0.9 mmol/L 0.5-2.2 Specimen sligh tly ARTERIAL (2) (BEAKER) hemoly zed (test code = 2874) [id number] 06:12:00 Test Item Value Reference Range Interpretation Comments POTASSIUM (BEAKER) (test code = 5.5 meq/L 3.5-5.1 H 379) Call Nephrology for > 5.2OXYGEN SATURATION, [id number] 05:54:00 Test Item Value Reference Range Interpretation Comments O2 SATURATION (MEASURED) (BEAKER) 91.7 % (test code = 1455) BLOOD GAS, [id number] 05:54:00 Test Item Value Reference Range Interpretation [...] (test code = 1819) 50.0 % POCT-GLUCOSE [id number] 05:18:00 Test Item Value Reference Range Interpretation Comments POC-GLUCOSE METER 127 mg/dL 70-110 H TESTED AT [place] [address] (BEAKER) (test code = BRENDA Prieto [place] 1538) [address] POCT-GLUCOSE [id number] 04:30:00 Test Item Value Reference Range Interpretation Comments POC-GLUCOSE METER 191 mg/dL 70-110 H TESTED AT [place] [address] ([facility]) (test code = BRENDA Prieto [facility] 1538) [address] POCT-GLUCOSE [id number] 04:30:00 Test Item Value Reference Range Interpretation Comments POC-GLUCOSE METER 320 mg/dL 70-110 H Verify [facility] ([facility]) (test code = draw/T ESTED AT [place] [address]) 67[address] [facility] [address] POCT-GLUCOSE [id number] 04:30:00 Test Item Value Reference Range Interpretation Comments POC-GLUCOSE METER 187 mg/dL 70-110 H TESTED AT [place] [address] ([facility]) (test code = JAKEIL Conner [place] [address]) [address] POCT-GLUCOSE [id number] 04:30:00 Test Item Value Reference Range Interpretation Comments POC-GLUCOSE METER 132 mg/dL 70-110 H TESTED AT [place] [address] ([facility]) (test code = JAKEIL Conner [facility] 1538) [address] BASIC METABOLIC [id number] 04:27:00 Test Item Value Reference Range Interpretation [...] 358) GLUCOSE RANDOM 192 mg/dL 70-105 H ([facility]) (test code = 652) CALCIUM (BEAKER) 9.2 mg/dL 8.4-10.2 (test code = 697) EGFR (BEAKER) (test 9 mL/min/1.73 ESTIMAT ED GFR IS code = 1092) sq m NOT ACCURATE CREATININE CLEARANCE IN PREDICTING GLOMERULAR FILTRATION RATE . ESTIMATED GFR I S NOT APPLICABLE FOR DIALYSIS PATIEN TS. Call Nephrology for > [id number] 04:08:00 Test Item Value Reference Range Interpretation Comments POTASSIUM (BEAKER) (test code = 5.2 meq/L 3.5-5.1 H 379) Call Nephrology for > [id number] 04:08:00 Test Item Value Reference Range Interpretation Comments MAGNESIUM (BEAKER) (test code = 2.1 mg/dL 1.6-2.6 627) Call Nephrology for > [id number] 04:08:00 Test Item Value Reference Range Interpretation Comments PHOSPHORUS (BEAKER) (test code = 4.0 mg/dL 2.3-4.7 604) Call Nephrology for > 5.2CBC W/PLT COUNT & AUTO [id number] 03:51:00 Test Item Value Reference Range Interpretation [...] (BEAKER) (test code = 2801) BLOOD GAS, [id number] 03:48:00 Test Item Value Reference Range Interpretation [...] (test code = 1819) 50.0 % CALCIUM, [id number] 03:48:00 Test Item Value Reference Range Interpretation Comments CALCIUM IONIZED (BEAKER) (test 1.23 mmol/L 1.12-1.27 code = 698) PH, BLOOD (BEAKER) (test code = 7.32 1810) [id number] 02:28:00 Test Item Value Reference Range Interpretation Comments POTASSIUM (BEAKER) (test code = 5.9 meq/L 3.5-5.1 H 379) Call Nephrology for > 5.2BLOOD GAS, [id number] 02:07:00 Test Item Value Reference Range Interpretation [...] (test code = 1819) 44.0 % POTASSIUM-STAT [id number] 00:09:00 Test Item Value Reference Range Interpretation Comments POTASSIUM (BEAKER) (test code = 5.8 meq/L 3.6-5.5 H 379) BLOOD GAS, [id number] 00:04:00 Test Item Value Reference Range Interpretation [...] (test code = 1819) 50.0 % GLUCOSE-STAT [id number] 00:04:00 Test Item Value Reference Range Interpretation Comments GLUCOSE RANDOM (BEAKER) (test code 133 mg/dL 70-110 H = 652) HGB/HCT (H&H) - STAT [id number] 00:04:00 Test Item Value Reference Range Interpretation Comments HEMOGLOBIN (BEAKER) (test code = 11.1 g/dL 13.0-16.8 L 410) HEMATOCRIT (BEAKER) (test code = 33.0 % 40.0-50.0 L 411) SODIUM NA-STAT [id number] 00:02:00 Test Item Value Reference Range Interpretation Comments SODIUM (BEAKER) (test code = 381) 136 meq/L 135-148 POCT-GLUCOSE [id number] 00:01:00 Test Item Value Reference Range Interpretation Comments POC-GLUCOSE METER 131 mg/dL 70-[address] [facility] 6720 (BEAKER) (test code = BRENDA Prieto [facility] 1538) [address] POCT-GLUCOSE [id number] 00:01:00 Test Item Value Reference Range Interpretation Comments POC-GLUCOSE METER 117 mg/dL 70-[address] [facility] 67 (BEAKER) (test code = BRENDA Prieto [facility] 1538) [address] POCT-GLUCOSE [id number] 00:01:00 Test Item Value Reference Range Interpretation Comments POC-GLUCOSE METER 119 mg/dL 70-[address] [facility] 67 (BEAKER) (test code = [facility] Conner [facility] 1538) [address] BASIC METABOLIC [id number] 23:15:00 Test Item Value Reference Range Interpretation [...] S NOT APPLICABLE FOR DIALYSIS PATIEN TS. [id number] 23:14:00 Test Item Value Reference Range Interpretation Comments MAGNESIUM (BEAKER) (test code = 2.1 mg/dL 1.6-2.6 627) LACTIC ACID, [id number] 23:11:00 Test Item Value Reference Range Interpretation Comments LACTATE BLOOD ARTERIAL (2) 1.0 mmol/L 0.5-2.2 (BEAKER) (test code = 2874) BLOOD GAS, [id number] 22:57:00 Test Item Value Reference Range Interpretation [...] (test code = 1819) 50.0 % GLUCOSE-STAT [id number] 22:57:00 Test Item Value Reference Range Interpretation Comments GLUCOSE RANDOM (BEAKER) (test code 126 mg/dL 70-110 H = 652) HGB/HCT (H&H) - STAT [id number] 22:57:00 Test Item Value Reference Range Interpretation Comments HEMOGLOBIN (BEAKER) (test code = 11.2 g/dL 13.0-16.8 L 410) HEMATOCRIT (BEAKER) (test code = 33.0 % 40.0-50.0 L 411) SODIUM NA-STAT [id number] 22:54:00 Test Item Value Reference Range Interpretation Comments SODIUM (BEAKER) (test code = 381) 138 meq/L 135-148 POTASSIUM-STAT [id number] 22:54:00 Test Item Value Reference Range Interpretation Comments POTASSIUM (BEAKER) (test code = 5.4 meq/L 3.6-5.5 379) SODIUM NA-STAT [id number] 21:58:00 Test Item Value Reference Range Interpretation Comments SODIUM (BEAKER) (test code = 381) 138 meq/L 135-148 POTASSIUM-STAT [id number] 21:58:00 Test Item Value Reference Range Interpretation Comments POTASSIUM (BEAKER) (test code = 4.6 meq/L 3.6-5.5 379) BLOOD GAS, [id number] 21:58:00 Test Item Value Reference Range Interpretation [...] (test code = 1819) 30.0 % GLUCOSE-STAT [id number] 21:58:00 Test Item Value Reference Range Interpretation Comments GLUCOSE RANDOM (BEAKER) (test code 121 mg/dL 70-110 H = 652) HGB/HCT (H&H) - STAT [id number] 21:58:00 Test Item Value Reference Range Interpretation Comments HEMOGLOBIN (BEAKER) (test code = 11.3 g/dL 13.0-16.8 L 410) HEMATOCRIT (BEAKER) (test code = 33.0 % 40.0-50.0 L 411) POCT-GLUCOSE [id number] 21:02:00 Test Item Value Reference Range Interpretation Comments POC-GLUCOSE METER 133 mg/dL 70-[address] [facility] 6720 (BEAKER) (test code = BRENDA ELLER 1538) [address] SODIUM NA-STAT [id number] 20:38:00 Test Item Value Reference Range Interpretation Comments SODIUM (BEAKER) (test code = 381) 136 meq/L 135-148 POTASSIUM-STAT [id number] 20:38:00 Test Item Value Reference Range Interpretation Comments POTASSIUM (BEAKER) (test code = 4.4 meq/L 3.6-5.5 379) BLOOD GAS, [id number] 20:38:00 Test Item Value Reference Range Interpretation [...] (test code = 1819) 40.0 % GLUCOSE-STAT [id number] 20:38:00 Test Item Value Reference Range Interpretation Comments GLUCOSE RANDOM (BEAKER) (test code 124 mg/dL 70-110 H = 652) HGB/HCT (H&H) - STAT [id number] 20:38:00 Test Item Value Reference Range Interpretation Comments HEMOGLOBIN (BEAKER) (test code = 10.9 g/dL 13.0-16.8 L 410) HEMATOCRIT (BEAKER) (test code = 32.0 % 40.0-50.0 L 411) POCT-GLUCOSE [id number] 20:17:00 Test Item Value Reference Range Interpretation Comments POC-GLUCOSE METER 139 mg/dL 70-[address] [facility] 6720 ([facility]) (test code = [place] 1538) [address] POCT-GLUCOSE [id number] 20:17:00 Test Item Value Reference Range Interpretation Comments POC-GLUCOSE METER 154 mg/dL 70-[address] [facility] 6720 ([facility]) (test code = BRENDA [place] 1538) [address] POCT-GLUCOSE [id number] 20:17:00 Test Item Value Reference Range Interpretation Comments POC-GLUCOSE METER 169 mg/dL 70-[address] [facility] 6720 (BEAKER) (test code = BRENDA [place] 1538) [address] [id number] 19:51:00 Test Item Value Reference Range Interpretation [...] 2 hours after IV magnesium replacement.BLOOD GAS, [id number] 19:29:00 Test Item Value Reference Range Interpretation [...] (test code = 1819) 60.0 % GLUCOSE-STAT [id number] 19:29:00 Test Item Value Reference Range Interpretation Comments GLUCOSE RANDOM (BEAKER) (test code 142 mg/dL 70-110 H = 652) HGB/HCT (H&H) - STAT [id number] 19:29:00 Test Item Value Reference Range Interpretation Comments HEMOGLOBIN (BEAKER) (test code = 11.3 g/dL 13.0-16.8 L 410) HEMATOCRIT (BEAKER) (test code = 33.0 % 40.0-50.0 L 411) SODIUM NA-STAT [id number] 19:28:00 Test Item Value Reference Range Interpretation Comments SODIUM (BEAKER) (test code = 381) 138 meq/L 135-148 POTASSIUM-STAT [id number] 19:28:00 Test Item Value Reference Range Interpretation Comments POTASSIUM (BEAKER) (test code = 4.2 meq/L 3.6-5.5 379) BASIC METABOLIC [id number] 16:25:00 Test Item Value Reference Range Interpretation [...] S NOT APPLICABLE FOR DIALYSIS PATIEN TS. [id number] 16:22:00 Test Item Value Reference Range Interpretation Comments MAGNESIUM (BEAKER) 2.3 mg/dL 1.6-2.6 Specimen slightly (test code = 627) hemolyzed [id number] 16:22:00 Test Item Value Reference Range Interpretation Comments PHOSPHORUS (BEAKER) 3.3 mg/dL 2.3-4.7 Specimen slightly (test code = 604) hemolyzed LACTIC ACID, [id number] 15:52:00 Test Item Value Reference Range Interpretation Comments LACTATE BLOOD 1.0 mmol/L 0.5-2.2 Specimen sligh tly ARTERIAL (2) (BEAKER) hemoly zed (test code = 2874) [id number] 15:48:00 Test Item Value Reference Range Interpretation [...] mechanical heart valves.CBC W/PLT COUNT & AUTO [id number] 15:31:00 Test Item Value Reference Range Interpretation [...] (BEAKER) (test code = 2801) OXYGEN SATURATION, [id number] 15:30:00 Test Item Value Reference Range Interpretation Comments O2 SATURATION (MEASURED) (BEAKER) 90.0 % (test code = 1455) BLOOD GAS, [id number] 15:30:00 Test Item Value Reference Range Interpretation [...] 100.0 % RAD, CHEST, 1 VIEW, NON [id number] 15:29:00Reason for exam:->Status post CV Surgery post [...] MDReport Verified Date/Time: 11/08/2018 15:29:07 Reading Location: [facility] Reading Room MBOELASTOGRAPH (TEG)2018-11-08 14:44:00 Test [...] 55.0-65.0 L (test code = 1413) PROTHROMBIN [id number] 13:56:00 Test Item Value Reference Range Interpretation [...] INR is2.5-3.5 for patients wiht mechanical heart valves.[id number] 13:56:00 Test Item Value Reference Range Interpretation Comments FIBRINOGEN LEVEL (BEAKER) (test 449 mg/dl 225-434 H code = 658) [id number] 13:56:00 Test Item Value Reference Range Interpretation Comments PARTIAL THROMBOPLASTIN TIME 30.5 seconds 22.5-36.0 (BEAKER) (test code = 760) PLATELET [id number] 13:49:00 Test Item Value Reference Range Interpretation Comments PLATELET COUNT (BEAKER) (test 106 K/CU MM 150-450 L code = 756) BLOOD GAS, [id number] 13:44:00 Test Item Value Reference Range Interpretation [...] (test code = 1819) 100.0 % GLUCOSE-STAT [id number] 13:44:00 Test Item Value Reference Range Interpretation Comments GLUCOSE RANDOM (BEAKER) (test code 176 mg/dL 70-110 H = 652) HGB/HCT (H&H) - STAT [id number] 13:44:00 Test Item Value Reference Range Interpretation Comments HEMOGLOBIN (BEAKER) (test code = 9.3 g/dL 13.0-16.8 L 410) HEMATOCRIT (BEAKER) (test code = 27.0 % 40.0-50.0 L 411) CALCIUM, [id number] 13:44:00 Test Item Value Reference Range Interpretation Comments CALCIUM IONIZED (BEAKER) (test 1.28 mmol/L 1.12-1.27 H code = 698) PH, BLOOD (BEAKER) (test code = 7.36 1810) SODIUM NA-STAT [id number] 13:43:00 Test Item Value Reference Range Interpretation Comments SODIUM (BEAKER) (test code = 381) 137 meq/L 135-148 POTASSIUM-STAT [id number] 13:43:00 Test Item Value Reference Range Interpretation Comments POTASSIUM (BEAKER) (test code = 5.0 meq/L 3.6-5.5 379) BLOOD GAS, [id number] 13:28:00 Test Item Value Reference Range Interpretation [...] code = 1819) 80.0 % SODIUM NA-STAT [id number] 13:28:00 Test Item Value Reference Range Interpretation Comments SODIUM (BEAKER) (test code = 381) 139 meq/L 135-148 GLUCOSE-STAT [id number] 13:28:00 Test Item Value Reference Range Interpretation Comments GLUCOSE RANDOM (BEAKER) (test code 194 mg/dL 70-110 H = 652) HGB/HCT (H&H) - STAT [id number] 13:28:00 Test Item Value Reference Range Interpretation Comments HEMOGLOBIN (BEAKER) (test code = 10.1 g/dL 13.0-16.8 L 410) HEMATOCRIT (BEAKER) (test code = 30.0 % 40.0-50.0 L 411) POTASSIUM-STAT [id number] 13:23:00 Test Item Value Reference Range Interpretation Comments POTASSIUM (BEAKER) (test code = 5.5 meq/L 3.6-5.5 379) BLOOD GAS, [id number] 12:53:00 Test Item Value Reference Range Interpretation [...] code = 1819) 100.0 % SODIUM NA-STAT [id number] 12:53:00 Test Item Value Reference Range Interpretation Comments SODIUM (BEAKER) (test code = 381) 130 meq/L 135-148 L GLUCOSE-STAT [id number] 12:53:00 Test Item Value Reference Range Interpretation Comments GLUCOSE RANDOM (BEAKER) (test code 231 mg/dL 70-110 H = 652) HGB/HCT (H&H) - STAT [id number] 12:53:00 Test Item Value Reference Range Interpretation Comments HEMOGLOBIN (BEAKER) (test code = 8.4 g/dL 13.0-16.8 L 410) HEMATOCRIT (BEAKER) (test code = 25.0 % 40.0-50.0 L 411) POTASSIUM-STAT [id number] 12:53:00 Test Item Value Reference Range Interpretation Comments POTASSIUM (BEAKER) (test code = 6.0 meq/L 3.6-5.5 HH 379) BLOOD GAS, [id number] 12:28:00 Test Item Value Reference Range Interpretation [...] code = 1819) 65.0 % SODIUM NA-STAT [id number] 12:28:00 Test Item Value Reference Range Interpretation Comments SODIUM (BEAKER) (test code = 381) 131 meq/L 135-148 L POTASSIUM-STAT [id number] 12:28:00 Test Item Value Reference Range Interpretation Comments POTASSIUM (BEAKER) (test code = 6.0 meq/L 3.6-5.5 HH 379) GLUCOSE-STAT [id number] 12:28:00 Test Item Value Reference Range Interpretation Comments GLUCOSE RANDOM (BEAKER) (test code 220 mg/dL 70-110 H = 652) HGB/HCT (H&H) - STAT [id number] 12:28:00 Test Item Value Reference Range Interpretation Comments HEMOGLOBIN (BEAKER) (test code = 8.6 g/dL 13.0-16.8 L 410) HEMATOCRIT (BEAKER) (test code = 25.0 % 40.0-50.0 L 411) BLOOD GAS, [id number] 11:39:00 Test Item Value Reference Range Interpretation [...] code = 1819) 65.0 % SODIUM NA-STAT [id number] 11:39:00 Test Item Value Reference Range Interpretation Comments SODIUM (BEAKER) (test code = 381) 132 meq/L 135-148 L POTASSIUM-STAT [id number] 11:39:00 Test Item Value Reference Range Interpretation Comments POTASSIUM (BEAKER) (test code = 5.7 meq/L 3.6-5.5 H 379) GLUCOSE-STAT [id number] 11:39:00 Test Item Value Reference Range Interpretation Comments GLUCOSE RANDOM (BEAKER) (test code 217 mg/dL 70-110 H = 652) HGB/HCT (H&H) - STAT [id number] 11:39:00 Test Item Value Reference Range Interpretation Comments HEMOGLOBIN (BEAKER) (test code = 7.6 g/dL 13.0-16.8 L 410) HEMATOCRIT (BEAKER) (test code = 22.0 % 40.0-50.0 L 411) PLATELET AGGREGATION: FUNCTION [id number] 11:26:00 Test Item Value Reference Range Interpretation Comments WEAK ADP 46 % 60-91 L RESULT(BEAKER) (test code = 2135) PLATELET FUNCTION 40-49% indicates SCREEN INTERP moderate platelet (BEAKER) (test code = dysfunction 2173) [id number] Brody Gaytan MD (BEAKER) (test code = (electronic signature) 8827) PLATELET COUNT AGG 236 K/CU MM 150-450 (BEAKER) (test code = 5916) Platelet Function Screen results may be falsely low with platelet counts<100,000/cu mm.for patients on clopidogrel in past two weeksfor patients on clopidogrel in past two weeksfor patients on clopidogrel in past two weeksPLATELET AGGREGATION: FUNCTION [id number] 11:25:00 Test Item Value Reference Range Interpretation Comments WEAK ADP 97 % 60-91 H RESULT(BEAKER) (test code = 2135) PLATELET FUNCTION 60-100% indicates SCREEN INTERP (BEAKER) normal platelet (test code = 2173) function [id number] Brody Gaytan MD (BEAKER) (test code = (electronic signature) 2571) PLATELET COUNT AGG 206 K/CU MM 150-450 (BEAKER) (test code = 2656) Platelet Function Screen results may be falsely low with platelet counts<100,000/cu mm.SODIUM NA-STAT [id number] 09:03:00 Test Item Value Reference Range Interpretation Comments SODIUM (BEAKER) (test code = 381) 135 meq/L 135-148 POTASSIUM-STAT [id number] 09:03:00 Test Item Value Reference Range Interpretation Comments POTASSIUM (BEAKER) (test code = 4.1 meq/L 3.6-5.5 379) BLOOD GAS, [id number] 09:03:00 Test Item Value Reference Range Interpretation [...] (test code = 1819) 100.0 % GLUCOSE-STAT [id number] 09:03:00 Test Item Value Reference Range Interpretation Comments GLUCOSE RANDOM (BEAKER) (test code 146 mg/dL 70-110 H = 652) HGB/HCT (H&H) - STAT [id number] 09:03:00 Test Item Value Reference Range Interpretation Comments HEMOGLOBIN (BEAKER) (test code = 10.2 g/dL 13.0-16.8 L 410) HEMATOCRIT (BEAKER) (test code = 30.0 % 40.0-50.0 L 411) POCT-GLUCOSE [id number] 07:40:00 Test Item Value Reference Range Interpretation Comments POC-GLUCOSE METER 205 mg/dL 70-[address] [facility] 6720 (BEAKER) (test code = [place] 1538) [address] BASIC METABOLIC [id number] 07:21:00 Test Item Value Reference Range Interpretation [...] S NOT APPLICABLE FOR DIALYSIS PATIEN TS. [id number] 07:11:00 Test Item Value Reference Range Interpretation Comments PHOSPHORUS (BEAKER) (test code = 4.6 mg/dL 2.3-4.7 604) [id number] 07:11:00 Test Item Value Reference Range Interpretation Comments MAGNESIUM (BEAKER) (test code = 1.8 mg/dL 1.6-2.6 627) [id number] 07:01:00 Test Item Value Reference Range Interpretation [...] mechanical heart valves.CBC W/PLT COUNT & AUTO [id number] 06:55:00 Test Item Value Reference Range Interpretation [...] = 2801) RAD, CHEST, 1 VIEW, NON [id number] 01:36:00Reason for exam:->pre opShould this be performed [...] evidence of an acute osseous abnormality. Signed: Chris Pereira MDReport Verified Date/Time: 11/08/2018 01:36:48 Reading Location: [address] Reading Room [id number] 22:17:00 Test Item Value Reference Range Interpretation Comments PARTIAL THROMBOPLASTIN TIME 96.5 seconds 22.5-36.0 H (BEAKER) (test code = 760) PROTHROMBIN [id number] 22:15:00 Test Item Value Reference Range Interpretation [...] is2.5-3.5 for patients wiht mechanical heart valves.POCT-GLUCOSE [id number] 21:47:00 Test Item Value Reference Range Interpretation Comments POC-GLUCOSE METER 202 mg/dL 70-110 H TESTED AT [place] [address] ([facility]) (test code = BRENDA Prieto [place] 1538) [address] POCT-GLUCOSE [id number] 17:15:00 Test Item Value Reference Range Interpretation Comments POC-GLUCOSE METER 230 mg/dL 70-110 H TESTED AT [place] [address] ([facility]) (test code = BANNERLESIA Prieto [facility] 1538) [address] [id number] 15:36:00 Test Item Value Reference Range Interpretation Comments POTASSIUM (BEAKER) 3.6 meq/L 3.5-5.1 Specimen slightly (test code = 379) hemolyzed POCT-GLUCOSE [id number] 12:00:00 Test Item Value Reference Range Interpretation Comments POC-GLUCOSE METER 145 mg/dL 70-110 H TESTED AT [place] [address] ([facility]) (test code = BRENDA Prieto [facility] 1538) [address] POCT-GLUCOSE [id number] 07:45:00 Test Item Value Reference Range Interpretation Comments POC-GLUCOSE METER 204 mg/dL 70-110 H TESTED AT [place] [address] ([facility]) (test code = BRENDA Prieto [facility] 1538) [address] BASIC METABOLIC [id number] 06:52:00 Test Item Value Reference Range Interpretation [...] S NOT APPLICABLE FOR DIALYSIS PATIEN TS. [id number] 06:44:00 Test Item Value Reference Range Interpretation Comments MAGNESIUM (BEAKER) 2.2 mg/dL 1.6-2.6 Specimen slightly (test code = 627) hemolyzed [id number] 06:44:00 Test Item Value Reference Range Interpretation Comments PHOSPHORUS (BEAKER) 6.6 mg/dL 2.3-4.7 H Specimen slightly (test code = 604) hemolyzed [id number] 06:34:00 Test Item Value Reference Range Interpretation [...] mechanical heart valves.CBC W/PLT COUNT & AUTO [id number] 06:14:00 Test Item Value Reference Range Interpretation [...] PERCENT (BEAKER) (test code = 2801) POCT-GLUCOSE [id number] 22:00:00 Test Item Value Reference Range Interpretation Comments POC-GLUCOSE METER 214 mg/dL 70-[address] [facility] 6720 (BEAKER) (test code = BRENDA Prieto [place] 1538) [address] [id number] 18:44:00 Test Item Value Reference Range Interpretation Comments PARTIAL THROMBOPLASTIN TIME 79.0 seconds 22.5-36.0 H ([facility]) (test code = 760) POCT-GLUCOSE [id number] 16:38:00 Test Item Value Reference Range Interpretation Comments POC-GLUCOSE METER 194 mg/dL 70-110 H TESTED AT [place] [address] ([facility]) (test code = BRENDA Prieto [place] 1538) [address] [id number] 12:50:00 Test Item Value Reference Range Interpretation Comments PARTIAL THROMBOPLASTIN TIME 83.0 seconds 22.5-36.0 H ([facility]) (test code = 760) POCT-GLUCOSE [id number] 12:31:00 Test Item Value Reference Range Interpretation Comments POC-GLUCOSE METER 270 mg/dL 70-110 H TESTED AT [place] [address] ([facility]) (test code = [facility] Conner [facility] 1538) [address] POCT-GLUCOSE [id number] 07:58:00 Test Item Value Reference Range Interpretation Comments POC-GLUCOSE METER 212 mg/dL 70-110 H TESTED AT [place] [address] ([facility]) (test code = [facility] 1538) [address] CBC W/PLT COUNT & AUTO [id number] 05:56:00 Test Item Value Reference Range Interpretation Comments WHITE BLOOD CELL COUNT (AKER) 5.9 K/ L 3.5-10.5 (test code = 775) RED BLOOD CELL COUNT (AKER) 3.71 M/ L 4.63-6.08 L (test code = 761) HEMOGLOBIN (BEAKER) (test code = 11.1 GM/DL 13.7-17.5 L 410) HEMATOCRIT (BEAKER) (test code = 36.6 % 40.1-51.0 L 411) MEAN CORPUSCULAR VOLUME (AKER) 98.7 fL 79.0-92.2 H (test code = 753) MEAN CORPUSCULAR HEMOGLOBIN 29.9 pg 25.7-32.2 (BEAKER) (test code = 751) MEAN CORPUSCULAR HEMOGLOBIN CONC 30.3 GM/DL 32.3-36.5 L (AKER) (test code = 752) RED CELL [...] 0-1 PERCENT (BEAKER) (test code = 2801) [id number] 05:43:00 Test Item Value Reference Range Interpretation Comments PARTIAL THROMBOPLASTIN TIME 43.1 seconds 22.5-36.0 H (BEAKER) (test code = 760) BASIC METABOLIC [id number] 04:36:00 Test Item Value Reference Range Interpretation [...] S NOT APPLICABLE FOR DIALYSIS PATIEN TS. [id number] 04:22:00 Test Item Value Reference Range Interpretation Comments PHOSPHORUS (BEAKER) (test code = 5.6 mg/dL 2.3-4.7 H 604) [id number] 04:22:00 Test Item Value Reference Range Interpretation Comments MAGNESIUM (BEAKER) (test code = 2.0 mg/dL 1.6-2.6 627) POCT-GLUCOSE [id number] 21:27:00 Test Item Value Reference Range Interpretation Comments POC-GLUCOSE METER 170 mg/dL 70-110 H TESTED AT [place] [id number] ([facility]) (test code = BRENDA Prieto [facility] 1538) [address] POCT-GLUCOSE [id number] 18:29:00 Test Item Value Reference Range Interpretation Comments POC-GLUCOSE METER 315 mg/dL 70-110 H Notified R Cali CARRILLO/TESTED (ALEYDA) (test code = AT [facility] 6720 [facility] 1538) [facility] [address] POCT-GLUCOSE [id number] 12:33:00 Test Item Value Reference Range Interpretation Comments POC-GLUCOSE METER 78 mg/dL 70-110 TESTED AT [place] [address] ([facility]) (test code = [facility] Conner [facility] [address]38) POCT-GLUCOSE [id number] 07:53:00 Test Item Value Reference Range Interpretation Comments POC-GLUCOSE METER 177 mg/dL 70-110 H TESTED AT [place] [id number] ([facility]) (test code = JAKEIL Conner [facility] 1538) [address] [id number] 05:58:00 Test Item Value Reference Range Interpretation [...] 20-55 (test code = 2590) BASIC METABOLIC [id number] 05:28:00 Test Item Value Reference Range Interpretation [...] S NOT APPLICABLE FOR DIALYSIS PATIEN TS. [id number] 05:24:00 Test Item Value Reference Range Interpretation Comments PHOSPHORUS (BEAKER) (test code = 7.5 mg/dL 2.3-4.7 H 604) [id number] 05:24:00 Test Item Value Reference Range Interpretation Comments MAGNESIUM (BEAKER) (test code = 2.0 mg/dL 1.6-2.6 627) [id number] 05:12:00 Test Item Value Reference Range Interpretation Comments PARTIAL THROMBOPLASTIN TIME 66.3 seconds 22.5-36.0 H (BEAKER) (test code = 760) CBC W/PLT COUNT & AUTO [id number] 05:00:00 Test Item Value Reference Range Interpretation [...] 0-1 PERCENT (BEAKER) (test code = 2801) [id number] 23:22:00 Test Item Value Reference Range Interpretation Comments PARTIAL THROMBOPLASTIN TIME 64.9 seconds 22.5-36.0 H (BEAKER) (test code = 760) POCT-GLUCOSE [id number] 21:01:00 Test Item Value Reference Range Interpretation Comments POC-GLUCOSE METER 113 mg/dL 70-110 H TESTED AT [place] [address] ([facility]) (test code = BRENDA Prieto [facility] 1538) [address] POCT-GLUCOSE [id number] 17:00:00 Test Item Value Reference Range Interpretation Comments POC-GLUCOSE METER 79 mg/dL 70-110 TESTED AT [place] [address] ([facility]) (test code = BANNERLESIA Prieto [facility] [address]38) [id number] 15:58:00 Test Item Value Reference Range Interpretation Comments PARTIAL THROMBOPLASTIN TIME 45.3 seconds 22.5-36.0 H (BEAKER) (test code = 760) [id number] 13:49:00 Test Item Value Reference Range Interpretation Comments PARTIAL THROMBOPLASTIN TIME 198.1 seconds 22.5-36.0 HH ([facility]) (test code = 760) POCT-GLUCOSE [id number] 11:52:00 Test Item Value Reference Range Interpretation Comments POC-GLUCOSE METER 201 mg/dL 70-110 H TESTED AT [place] [address] ([facility]) (test code = [facility] Conner [facility] 1538) [address] POCT-GLUCOSE [id number] 07:48:00 Test Item Value Reference Range Interpretation Comments POC-GLUCOSE METER 194 mg/dL 70-110 H TESTED AT [place] [address] ([facility]) (test code = [facility] 1538) [address] BASIC METABOLIC [id number] 07:26:00 Test Item Value Reference Range Interpretation [...] S NOT APPLICABLE FOR DIALYSIS PATIEN TS. [id number] 07:21:00 Test Item Value Reference Range Interpretation Comments PHOSPHORUS (BEAKER) 6.0 mg/dL 2.3-4.7 H Specimen slightly (test code = 604) hemolyzed HEPATIC FUNCTION [id number] 07:21:00 Test Item Value Reference Range Interpretation [...] Specimen slightly (test code = 347) hemolyzed [id number] 07:20:00 Test Item Value Reference Range Interpretation Comments MAGNESIUM (BEAKER) 2.2 mg/dL 1.6-2.6 Specimen slightly (test code = 627) hemolyzed CBC W/PLT COUNT & AUTO [id number] 07:03:00 Test Item Value Reference Range Interpretation [...] 0-1 PERCENT (BEAKER) (test code = 2801) [id number] 05:37:00 Test Item Value Reference Range Interpretation [...] is2.5-3.5 for patients wiht mechanical heart valves.POCT-GLUCOSE [id number] 21:36:00 Test Item Value Reference Range Interpretation Comments POC-GLUCOSE METER 130 mg/dL 70-[address] [facility] 6720 (ALEYDA) (test code = [place] 1538) [address] [id number] 21:31:00 Test Item Value Reference Range Interpretation Comments PROTIME (ALEYDA) (test code = 13.0 seconds 11.9-14.2 759) INR ([place]) (test code = 370) 1.0 <=5.9 PARTIAL THROMBOPLASTIN TIME 51.3 seconds 22.5-36.0 H (BEAKER) (test code = 760) Effective 10/20/2018: PT Reference Range ChangeNew: 11.9-14.2 Previous: 11.7- 14.7RECOMMENDED COUMADIN/WARFARIN INR THERAPY RANGESSTANDARD DOSE: 2.0-3.0 Includes: PROPHYLAXIS for venous thrombosis, systemic embolization; TREATMENT for venous thrombosis and/or pulmonary embolus.HIGH RISK: Target INR is2.5-3.5 for patients wiht mechanical heart valves.HEPATITIS B SURFACE [id number] 19:20:00 Test Item Value Reference Range Interpretation Comments HEPATITIS B SURFACE ANTIGEN (2) Nonreactive Nonreactive (BEAKER) (test code = 2585) [id number] 17:47:00 Test Item Value Reference Range Interpretation Comments PROTIME (BEAKER) (test code = 13.2 seconds 11.9-14.2 759) INR (BEAKER) (test code = 370) 1.0 <=5.9 PARTIAL THROMBOPLASTIN TIME 71.3 seconds 22.5-36.0 H ([facility]) (test code = 760) Effective 10/20/2018: PT Reference Range ChangeNew: 11.9-14.2 Previous: 11.7- 14.7RECOMMENDED COUMADIN/WARFARIN INR THERAPY RANGESSTANDARD DOSE: 2.0-3.0 Includes: PROPHYLAXIS for venous thrombosis, systemic embolization; TREATMENT for venous thrombosis and/or pulmonary embolus.HIGH RISK: Target INR is2.5-3.5 for patients wiht mechanical heart valves.POCT-GLUCOSE [id number] 16:51:00 Test Item Value Reference Range Interpretation Comments POC-GLUCOSE METER 72 mg/dL 70-110 TESTED AT [place] [address] ([facility]) (test code = [facility] [address] 1538) PLATELET AGGREGATION: FUNCTION [id number] 16:05:00 Test Item Value Reference Range Interpretation Comments WEAK ADP 62 % 60-91 RESULT([facility]) (test code = 2135) PLATELET FUNCTION 60-100% indicates SCREEN INTERP ([facility]) normal platelet (test code = 2173) function [id number] Billie Pollock MD ([facility]) (test code = (electronic signature) 0912) PLATELET COUNT AGG 263 K/CU MM 150-450 ([facility]) (test code = 2656) Platelet Function Screen results may be falsely low with platelet counts<100,000/cu mm.POCT-GLUCOSE [id number] 12:37:00 Test Item Value Reference Range Interpretation Comments POC-GLUCOSE METER 206 mg/dL 70-110 H TESTED AT [place] [address] ([facility]) (test code = [facility] 1538) [address] HEMOGLOBIN [id number] 11:12:00 Test Item Value Reference Range Interpretation Comments HEMOGLOBIN A1C ([facility]) (test code = 7.4 % 4.3-6.1 H 368) POCT-GLUCOSE [id number] 07:21:00 Test Item Value Reference Range Interpretation Comments POC-GLUCOSE METER 109 mg/dL 70-110 TESTED AT [place] [address] ([facility]) (test code = [facility] 1538) [address] BASIC METABOLIC [id number] 06:55:00 Test Item Value Reference Range Interpretation [...] S NOT APPLICABLE FOR DIALYSIS PATIEN TS. [id number] 06:53:00 Test Item Value Reference Range Interpretation Comments MAGNESIUM (BEAKER) 2.5 mg/dL 1.6-2.6 Specimen slightly (test code = 627) hemolyzed [id number] 06:38:00 Test Item Value Reference Range Interpretation [...] 0-0 (BEAKER) (test code = 413) POCT-GLUCOSE [id number] 00:17:00 Test Item Value Reference Range Interpretation Comments POC-GLUCOSE METER 301 mg/dL 70-110 H Notified R N MD/TESTED (BEAKER) (test code = AT [facility] 6[address] [facility] 0473) [place] [address] [id number] 20:44:00 Test Item Value Reference Range Interpretation Comments PARTIAL THROMBOPLASTIN TIME 34.1 seconds 22.5-36.0 (BEAKER) (test code = 760) Prior to initiating heparinPLATELET [id number] 20:37:00 Test Item Value Reference Range Interpretation Comments PLATELET COUNT (BEAKER) (test 257 K/CU MM 150-450 code = 756) POTASSIUM-STAT [id number] 10:59:00 Test Item Value Reference Range Interpretation Comments POTASSIUM (BEAKER) (test code = 5.3 meq/L 3.6-5.5 379) BASIC METABOLIC [id number] 10:19:00 Test Item Value Reference Range Interpretation [...] S NOT APPLICABLE FOR DIALYSIS PATIEN TS. [id number] 10:15:00 Test Item Value Reference Range Interpretation [...] mechanical heart valves.CBC W/PLT COUNT & AUTO [id number] 10:02:00 Test Item Value Reference Range Interpretation [...] code = 2801) MYOCARD IMAGING, MULTI, PHARM, [id number] 16:25:00FINAL REPORT PROCEDURE: MYOCARDIAL PERFUSION SPECT IMAGING (Rest/Stress)CPT CODE: 89722 INDICATION: Renal transplant evaluation CARDIOVASCULAR PROFILE:CAD History: [...] is no prior study for comparison. Signed: Rakesh Grajeda MDReport Verified Date/Time: 09/30/2018 16:25:13 [address] OCCULT BLOOD, [id number] 17:11:00 Test Item Value Reference Range Interpretation Comments FECAL OCCULT BLOOD (BEAKER) (test Positive Negative A code = 618) OCCULT BLOOD, [id number] 17:02:00 Test Item Value Reference Range Interpretation Comments FECAL OCCULT BLOOD (BEAKER) (test Negative Negative code = 618) POCT-GLUCOSE [id number] 11:41:00 Test Item Value Reference Range Interpretation Comments POC-GLUCOSE METER 161 mg/dL 70-[address] [facility] 6720 ([facility]) (test code = BRENDA Prieto [facility] 1538) [address] HEPATITIS B SURFACE [id number] 08:02:00 Test Item Value Reference Range Interpretation Comments HEPATITIS B SURFACE ANTIGEN (2) Nonreactive Nonreactive (BEAKER) (test code = 2585) For chronic HD patients, draw HBsAg with each admission then every 30 days.POCT- GLUCOSE [id number] 07:52:00 Test Item Value Reference Range Interpretation Comments POC-GLUCOSE METER 98 mg/dL 70-[address] [facility] 6720 ([facility]) (test code = BRENDA Prieto [facility] [address] 1538) BASIC METABOLIC [id number] 05:13:00 Test Item Value Reference Range Interpretation [...] WBC 0-0 (BEAKER) (test code = 413) [id number] 05:03:00 Test Item Value Reference Range Interpretation Comments MAGNESIUM (BEAKER) 2.6 mg/dL 1.6-2.6 Specimen moderately (test code = 627) hemolyzed POCT-GLUCOSE [id number] 23:31:00 Test Item Value Reference Range Interpretation Comments POC-GLUCOSE METER 109 mg/dL 70-110 TESTED AT [place] [address] ([facility]) (test code = BRENDA [place] 1538) [address] [id number] 20:10:00 Test Item Value Reference Range Interpretation Comments ACTIVATED CLOTTING TIME 131 sec TEST ED AT [place] [address] ([facility]) (test code = BR[place] 441) [address] [id number] 18:55:00 Test Item Value Reference Range Interpretation Comments POTASSIUM (BEAKER) (test code = 5.0 meq/L 3.5-5.1 379) [id number] 18:36:00 Test Item Value Reference Range Interpretation Comments ACTIVATED CLOTTING TIME 147 sec TEST ED AT [place] [address] ([facility]) (test code = BRENDA Prieto [place] [address]) [address] POCT-GLUCOSE [id number] 16:22:00 Test Item Value Reference Range Interpretation Comments POC-GLUCOSE METER 82 mg/dL 70-110 TESTED AT [place] [address] ([facility]) (test code = BRENDA Prieto [facility] [address] 1538) [id number] 15:40:00 Test Item Value Reference Range Interpretation Comments ACTIVATED CLOTTING TIME 208 sec TEST ED AT [place] [address] ([facility]) (test code = BRENDA Prieto [place] [address]) [address] [id number] 14:31:00 Test Item Value Reference Range Interpretation Comments ACTIVATED CLOTTING TIME 224 sec TEST ED AT [place] [address] ([facility]) (test code = BRENDA Prieto [place] [address]) [address] [id number] 14:31:00 Test Item Value Reference Range Interpretation Comments ACTIVATED CLOTTING TIME 411 sec TEST ED AT [place] [address] ([facility]) (test code = BRENDA Prieto [place] [address]) [address] POCT-GLUCOSE [id number] 13:29:00 Test Item Value Reference Range Interpretation Comments POC-GLUCOSE METER 130 mg/dL 70-110 H TESTED AT [place] [address] ([facility]) (test code = BRENDA Prieto [facility] 1538) [address] POCT-GLUCOSE [id number] 13:01:00 Test Item Value Reference Range Interpretation Comments POC-GLUCOSE METER 32 mg/dL 70-110 LL Notified R N /TESTED AT ([facility]) (test code = [place] [address] [facility] 7703 0 CBC W/PLT COUNT & AUTO [id number] 11:07:00 Test Item Value Reference Range Interpretation Comments WHITE BLOOD CELL COUNT ([facility]) 6.1 K/ L 4.0-10.0 (test code = 775) RED BLOOD CELL COUNT ([facility]) 3.71 M/ L 4.20-5.80 L (test code = 761) HEMOGLOBIN ([facility]) (test code = 12.4 GM/DL 13.0-16.8 L 410) HEMATOCRIT ([facility]) (test code = 36.8 % 40.0-50.0 L [...] 0.00-0.20 (test code = 417) 0.00BASIC METABOLIC [id number] 10:53:00 Test Item Value Reference Range Interpretation [...] S NOT APPLICABLE FOR DIALYSIS PATIEN TS. [id number] 10:44:00 Test Item Value Reference Range Interpretation [...] mechanical heart valves.FLOW PRA CLASS I AND [id number] 11:51:00 Test Item Value Reference Range Interpretation Comments DATE OF SERUM (BEAKER) [id number] (test code = 2289) SERUM # (BEAKER) (test [id number] code = 2290) FLOW PRA CLASS I AND II See Scanned Report (test code = 2421) HLA [id number] 11:51:00 Test Item Value Reference Range Interpretation [...] (BEAKER) (test code = 2583) EBV-VCA ANTIBODY, [id number] 14:35:00 Test Item Value Reference Range Interpretation Comments ROLDAN-THOMAS VCA IGM (BEAKER) (test Negative code = 984) VARICELLA ZOSTER ANTIBODY, [id number] 12:16:00 Test Item Value Reference Range Interpretation Comments VARICELLA ZOSTER IGG (AL) (BEAKER) 1.6 Al (test code = 3197) VARICELLA ZOSTER RESULT INTERPRETATIONS: <=0.8 Al Nonreactive: Presumed non-immune to VZV 0.9-1.0 Al Equivocal >=1.1 Al Reactive: Presumed immune to VZVCYTOMEGALOVIRUS ANTIBODY, [id number] 12:11:00 Test Item Value Reference Range Interpretation Comments CYTOMEGALOVIRUS IGG ANTIBODY Positive (BEAKER) (test code = 790) CYTOMEGALOVIRUS ANTIBODY, [id number] 12:11:00 Test Item Value Reference Range Interpretation Comments CYTOMEGALOVIRUS IGM ANTIBODY Negative (BEAKER) (test code = 816) EBV-VCA ANTIBODY, [id number] 12:11:00 Test Item Value Reference Range Interpretation Comments ROLDAN-THOMAS VCA IGG (BEAKER) (test Positive code = 983) [id number] 11:41:00 Test Item Value Reference Range Interpretation Comments RPR SCREEN (BEAKER) (test code = Nonreactive Nonreactive 420) HEPATITIS B SURFACE [id number] 14:42:00 Test Item Value Reference Range Interpretation Comments HEPATITIS B SURFACE ANTIBODY 9.6 mIU/mL <8.0 H (BEAKER) (test code = 647) HEPATITIS B SURFACE [id number] 14:12:00 Test Item Value Reference Range Interpretation Comments HEPATITIS B SURFACE ANTIGEN (2) Nonreactive Nonreactive (BEAKER) (test code = 2585) HEPATITIS B CORE ANTIBODY, [id number] 14:12:00 Test Item Value Reference Range Interpretation Comments HEPATITIS B CORE IGM ANTIBODY Nonreactive Nonreactive (BEAKER) (test code = 645) HEPATITIS C [id number] 14:12:00 Test Item Value Reference Range Interpretation Comments HEPATITIS C ANTIBODY (BEAKER) Nonreactive Nonreactive (test code = 367) HIV-1 ANTIGEN WITH HIV-1/2 [id number] 14:12:00 Test Item Value Reference Range Interpretation Comments HIV-1 ANTIGEN WITH HIV 1\T\2 Nonreactive Nonreactive ANTIBODY (2) (BEAKER) (test code = 2586) [id number] 14:12:00 Test Item Value Reference Range Interpretation Comments PROSTATE SPECIFIC ANTIGEN (BEAKER) 0.7 ng/mL 0.0-4.0 (test code = 844) COMPREHENSIVE METABOLIC [id number] 13:58:00 Test Item Value Reference Range Interpretation [...] NOT APPLICABLE FOR DIALYSIS PATIEN TS. PTH, [id number] 13:52:00 Test Item Value Reference Range Interpretation Comments PARATHYROID HORMONE INTACT 289.5 pg/mL 8.5-72.5 H (BEAKER) (test code = 577) Effective 04/11/2014: Reference Range ChangeNew: 8.5-72.5 Previous: 15.0-90.0 URIC [id number] 13:52:00 Test Item Value Reference Range Interpretation Comments URIC ACID (BEAKER) (test code = 3.9 mg/dL 2.6-7.2 773) [id number] 13:52:00 Test Item Value Reference Range Interpretation Comments PHOSPHORUS (BEAKER) (test code = 3.3 mg/dL 2.3-4.7 604) LIPID [id number] 13:52:00 Test Item Value Reference Range Interpretation [...] 161 U/L 125-220 code = 635) HEMOGLOBIN [id number] 13:32:00 Test Item Value Reference Range Interpretation Comments HEMOGLOBIN A1C (BEAKER) (test code = 5.9 % 4.3-6.1 368) CBC W/PLT COUNT & AUTO [id number] 13:32:00 Test Item Value Reference Range Interpretation [...] K/ L 0.00-0.20 (test code = 417) 0.00PT/[id number] 13:18:00 Test Item Value Reference Range Interpretation [...] is 2.5-3.5 for patients with mechanical heart valves.BLOOD BANK [id number] 13:00:00 Negative (06/03/2011 07:00:00)[facility] [id number] 14:15:00Negative (04/22/2011 08:15:00) [facility] XgvdxqtMLABHKMGP2472-94-78 13:33:004.0[facility] AyrnzsfMMESQFCIW9349-30-92 13:33:0095.0[facility] KWDCHIGCO0078-85-78 13:33:93709.0[facility] UuakcnzEVFZCLCUM2048-12-58 13:33:00 29.0[facility] FbbhgeyQRNAGCGQT3507-61-85 13:33:009.3[facility]annCHEMISTRY 2011-04-22 13:33:006.7[facility] DnjzpcfNVMQWBHRH7836-90-99 13:33:0045.0[facility] RuoignxZZYJUSWVJ3283-93-95 13:33:52737.0[facility] IrxviabTTGQRMHEH7981-82-71 13:33:0021.0[facility] XefsfrgRSMJHBRNHY9621-82-42 13:33:009.4[facility] [place] AZNNAUTWZY1953-23-59 13:33:00 Test Item Value Reference Range Interpretation Comments MCH (test code = MCH) 32.1 pg 27.0-31.0 H [facility] RyijwngXUUNLYWQDB3227-25-74 13:33:0034.6[facility] HermannHEMATOLOGY 2011-04-22 13:33:73192.0[facility] UicjucwOLLGMGHUFC4535-47-77 13:33:0014.3 [facility] EgsomdeRMFCDUAVEN5331-95-08 13:33:0092.8[facility] HermannHEMATOLOGY 2011-04-22 13:33:007.0[facility] ImgckboZYEDFJDNJF6664-26-89 13:33:0028.5[facility] AvlracfJLPIGAABIU6390-08-48 13:33:009.9[facility] JhrzwfrYLMDEAQUEA6856-69-64 13:33:003.07[facility] RpnbsclPEPNOJIMRU5147-08-70 13:33:0071.7[facility] YFDUFGTPPR5456-02-19 13:33:000.1[facility] SirkoyzXMLQTFJCZU0320-19-45 13:33:000.7 [facility] WwbqigaDVGNKFGZQU9519-63-92 13:33:000.1[facility] HermannHEMATOLOGY 2011-04-22 13:33:007.3[facility] NozoukaIMWJBAPKXJ0201-98-29 13:33:0019.0[facility] JzyyabvQEFPJMFCKQ7369-71-54 13:33:006.7[facility] JvligbsUCMSZWTVKU5684-14-69 13:33:000.6[facility] WjnbrokVNOJSBWNQJ7245-54-47 13:33:001.4[facility] GRSNRNDBKS5242-45-24 13:33:001.8[facility] RexzuomFTCXREEBAU7886-26-51 13:33:00 Test Item Value Reference Range Interpretation Comments PT (test code = PT) 13.1 s 12.0-14.7 N [facility] EtawnleWXCIESITXB9049-65-67 13:33:00 Test Item Value Reference Range Interpretation Comments PTT (test code = PTT) 30.0 s 22.9-35.8 N [facility]dluuyjHFCUTYAOSS4924-89-08 13:33:00 Test Item Value Reference Range Interpretation Comments INR (test code = INR) 0.99 1 0.85-1.17 N [facility] ZoxrfyzOQJGPMZRHS5147-83-68 13:15:000.48[facility] HermannIMMUNOLOGY 2011-02-20 13:15:000.87[facility] JlyelchHTBDRAALPL1597-05-00 13:15:007.55[facility]
[2020-11-21 10:29] LABS: Absolute Lymphocytes (CBC) 0.7 K/uL (0.7-4.9); Hematocrit 37.9 % (39.6-49.0); Lymphocytes % 7.7 % (15.3-44.8)
[2020-11-21 10:30] LABS: Protime INR 0.95
[2020-11-21 10:54] LABS: ALT/SGPT 10 U/L (12-78); AST/SGOT 14 U/L (15-37); Albumin 3.2 g/dL (3.4-5.0); Alkaline Phosphatase 174 U/L (45-117); BUN Blood Urea Nitrogen 76 mg/dL (7-18); Bicarbonate 19 mmol/L (21-32); Bilirubin Direct 0.2 mg/dL (0-0.2); Bilirubin Total 0.5 mg/dL (0.2-1.0); Glucose Level 62 mg/dL (74-106); Magnesium 2.6 mg/dL (1.8-2.4); NT PRO-BNP 18638 pg/mL (<125); Potassium 4.8 mmol/L (3.5-5.1); Protein, Total 7.9 g/dL (6.4-8.2); Sodium Level 132 mmol/L (136-145); Troponin (Emerg Dept Use Only) < 0.02 ng/mL (0.0-0.045)
--- NOTE | 2020-11-21 12:30 | RAD REPORT ---
EXAM DESCRIPTION: Jarred Single View11/21/2020 12:18 pm CLINICAL HISTORY: Confusion COMPARISON: July 2020 FINDINGS: Mild left lung opacities may represent a mild infiltrate Right lung appears clear. Heart is mildly enlarged. Postsurgical changes involve the chest
--- NOTE | 2020-11-21 12:56 | ER ---
Nurse's Notes [facility] Name: Shekhar Gambino Age: 55 yrs Sex: Male : 1965 Arrival Date: 11/21/2020 Time: 09:17 Bed 15 Private MD: Izabela Coe C Diagnosis: End stage renal disease;Cellulitis of left lower limb-Dorsum of left toes;Altered mental status, unspecified Presentation: 11/21 09:29 Chief complaint: "He missed dialysis Thursday and they found him face down. Today he was ss supposed to go to dialysis but my Dad said it was hard to wake him up and whenever he was able to wake him up he was disoriented. He seems okay now." Pt c/o nausea and tingling feeling to L side face that began "Thursday or Thursday" and is also concerned that he just noticed that both of his ankles/ feet are black. Coronavirus screen: Client denies travel out of the [place] in the last 14 days. Ebola Screen: Patient denies exposure to infectious person. Patient denies travel to an Ebola-affected area in the 21 days before illness onset. Initial Sepsis Screen: Does the patient meet any 2 criteria? No. Patient's initial sepsis screen is negative. Does the patient have a suspected source of infection? No. Patient's initial sepsis screen is negative. Risk Assessment: Do you want to hurt yourself or someone else? Patient reports no desire to harm self or others. Onset of symptoms was November 18, 2020. 09:29 Method Of Arrival: Wheelchair ss 09:29 Acuity: AZAEL 3 ss Triage Assessment: :30 General: Appears in no apparent distress. comfortable, Behavior is cooperative, bp appropriate for age, anxious. Pain: Denies pain. EENT: No deficits noted. Neuro: Level of Consciousness is awake, alert, obeys commands, Oriented to Appropriate for age. Cardiovascular: Rhythm is sinus rhythm. Respiratory: No deficits noted. GI: No signs and/or symptoms were reported involving the gastrointestinal system. : No signs and/or symptoms were reported regarding the genitourinary system. Derm: No deficits noted. Musculoskeletal: No deficits noted. Historical: - Allergies: :34 Eliquis; ss - PMHx: :34 Diabetes - IDDM; Dialysis; High Cholesterol; Hypertension; ss - Immunization history:: Adult Immunizations up to date, Client reports receiving the 2nd dose of the Covid vaccine. - Social history:: Smoking status: Patient denies any tobacco usage or history of. Screenin:30 Abuse screen: Denies threats or abuse. Nutritional screening: No deficits noted. bp Tuberculosis screening: No symptoms or risk factors identified. Fall Risk None identified. Assessment: 09:30 General: SEE TRIAGE NOTE. bp 10:30 Reassessment: No changes from previously documented assessment. Patient and/or family bp updated on plan of care and expected duration. Pain level reassessed. Patient is alert, oriented x 3, equal unlabored respirations, skin warm/dry/pink. 11:30 Reassessment: No changes from previously documented assessment. Patient and/or family bp updated on plan of care and expected duration. Pain level reassessed. Patient is alert, oriented x 3, equal unlabored respirations, skin warm/dry/pink. Neuro: Level of Consciousness is awake, alert, obeys commands, Oriented to Appropriate for age. 13:04 Reassessment: ADMIT INITIATED FOR DIALYSIS. PT BGL 55, PROVIDED MEAL. bp 15:00 Reassessment: Patient appears in no apparent distress at this time. No changes from bp previously documented assessment. Patient and/or family updated on plan of care and expected duration. Pain level reassessed. DISPO CHANGED TO TRANSFER. 17:00 Reassessment: No changes from previously documented assessment. Patient and/or family bp updated on plan of care and expected duration. Pain level reassessed. Patient is alert, oriented x 3, equal unlabored respirations, skin warm/dry/pink. TRANSFER IN PROCESS. 18:29 Reassessment: BERRY [phone]. bp 19:00 Reassessment: DR COE AT B/S FOR EVAL OF PT. DISPO PENDING. bp 20:02 Reassessment: Received care of pt at this time. Pt resting comfortably in stretcher, ad5 resp with ease. VSS. MD at bedside speaking with pt, questions/concerns addressed. NAD noted, will continue to monitor. 20:03 Reassessment: Pt appears agitated, reports "haven't eaten all day". Pt provided ad5 sandwich and diet soda at this time, informed awaiting further plan of care instructions. VS remain stable. Will continue to monitor. 21:00 Reassessment: Attempt to call report x 2, awaiting call back from facility. ad5 21:41 Reassessment: Patient appears in no apparent distress at this time. Patient and/or ad5 family updated on plan of care and expected duration. Pain level reassessed. Patient is alert, oriented x 3, equal unlabored respirations, skin warm/dry/pink. Pt informed awaiting to hear back from RN at accepting facility for report. Pt denies needs at this time. Will continue to monitor. 21:49 Reassessment:. ad5 21:56 Reassessment: Pt report to LUCIA Tovar at [facility], questions/concerns ad5 addressed. EMS at bedside at this time for transport. Vital Signs: 09:34 BP 139 / 76; Pulse 97; Resp 16; Temp 97.6(TE); Pulse Ox 98% on R/A; Weight 99.34 kg; ss Height 5 ft. 5 in. (165.10 cm); Pain 0/10; 10:30 BP 147 / 69; Pulse 95; Resp 11; Pulse Ox 99% ; bp 11:30 BP 155 / 78; Pulse 98; Resp 16; Pulse Ox 100% ; bp 13:04 BP 136 / 74; Pulse 97; Resp 15; Pulse Ox 100% ; bp 14:00 BP 153 / 85; Pulse 95; Resp 16; Pulse Ox 95% ; bp 15:00 BP 151 / 82; Pulse 93; Resp 16; Pulse Ox 100% ; bp 16:00 BP 152 / 82; Pulse 94; Resp 16; Pulse Ox 100% ; bp 17:00 BP 136 / 80; Pulse 92; Resp 17; Pulse Ox 100% ; bp 19:15 BP 103 / 92; Pulse 96; Resp 20 S; Pulse Ox 100% ; ad5 20:30 BP 131 / 77; Pulse 96; Resp 18 S; Pulse Ox 100% on R/A; ad5 21:30 BP 148 / 77; Pulse 96; Resp 18 S; Pulse Ox 99% on R/A; ad5 09:34 Body Mass Index 36.44 (99.34 kg, 165.10 cm) ED Course: 09:17 Patient arrived in ED. as 09:18 Izabela Coe MD is Private Physician. as 09:30 Patient has correct armband on for positive identification. Placed in gown. Bed in low bp position. Call light in reach. Side rails up X2. Adult w/ patient. 09:33 Triage completed. ss 09:34 Arm band placed on right wrist. ss 09:43 Chris Gabriel, RN is Primary Nurse. bp 09:57 Bereket Palma MD is Attending Physician. kdr 10:15 Initial lab(s) drawn, by me, sent to lab. Inserted saline lock: 22 gauge in right hand, vg1 using aseptic technique. Blood collected. 10:17 EKG done, by ED staff, reviewed by Bereket Palma MD. jl7 12:18 XRAY Chest (1 view) In Process Unspecified. EDMS 12:54 Izabela Coe MD is Hospitalizing Provider. kdr 13:22 CT Head Brain wo Cont In Process Unspecified. EDMS 14:28 Foot Left 2 View XRAY In Process Unspecified. EDMS 17:06 initiated transfer to [facility]. bd 17:31 spoke with Marie at [facility], she is still waiting on dr to call her bd back she requested a 30min extention. 17:36 No provider procedures requiring assistance completed. Patient transferred, IV remains bp in place. 18:27 was contacted by Marie Vaughan with [facility] she requested another bd extention, extention was granted. 19:[address] Palma with the Hospitalist from [facility]. mw2 19:37 Primary Nurse role handed off by Chris Gabriel, RN mw2 20:02 Fransico Goncalves is Primary Nurse. ad5 20:23 administrative approval given by Marianela Friend/ patient has been accepted to [address] [place] [address]15/ Dr. Vigil accepted the patient in transfer/ report to be called to [phone]. Administered Medications: 15:35 Drug: Zosyn (piperacillin-tazobactam) 3.375 grams Route: IVPB; Infused Over: 60 mins; bp Site: right hand; 16:30 Follow up: IV Status: Completed infusion; IV Intake: 100ml bp 16:29 Drug: vancoMYCIN 1 grams Route: IVPB; Infused Over: 2 hrs; Site: left antecubital; bp 21:44 Follow up: IV Status: Completed infusion ad5 Intake: 16:30 IV: 100ml; Total: 100ml. bp Outcome: 12:55 Decision to Hospitalize by Provider. kdr 16:23 ER care complete, transfer ordered by . kdr 21:54 Transferred by ground EMS to [facility], [facility] [place] [place], Transfer form completed. ad5 21:54 Condition: stable 21:54 Instructed on the need for transfer. 22:10 Patient left the ED. ad5 Signatures: Dispatcher [employer] EDMS Genesis Larson Kevin, MD MD kdr Tara Ornelas Shelby, RN RN ss Zoe Moreno RN RN jl7 Chris Gabriel RN RN bp Violet Brewer mw2 Dianne Cao, RN RN vg1 Fransico Goncalves ad5
--- NOTE | 2020-11-21 12:56 | EDPHYS ---
Physician Documentation [facility] Name: Shekhar Gambino Age: 55 yrs Sex: Male : 1965 Arrival Date: 11/21/2020 Time: 09:17 Bed 15 Private MD: Izabela Lemos C ED Physician Bereket Palma HPI: 11/21 19:10 This 55 yrs old Male presents to ER via Wheelchair with complaints of kdr disoriented, missed dialysis. 19:10 The patient presents with decreased mental status, decreased responsiveness. Onset: The kdr symptoms/episode began/occurred 3 day(s) ago. Possible causes: unknown. Associated signs and symptoms: The patient has no apparent associated signs or symptoms, Pertinent positives:. Patient's baseline: Neuro: alert and fully oriented, Motor: no deficits, Ambulation: walks without assistance, Speech: normal for age. The patient has not experienced similar symptoms in the past. The patient has not recently seen a physician. The patient was reportedly found face down on Thursday and the was hard to awaken this morning. In the ED he has been A\T\O x 3 and without c/o other than the infection on his right foot. . Historical: - Allergies: 09:34 Eliquis; ss - PMHx: 09:34 Diabetes - IDDM; Dialysis; High Cholesterol; Hypertension; ss - Immunization history:: Adult Immunizations up to date, Client reports receiving the 2nd dose of the Covid vaccine. - Social history:: Smoking status: Patient denies any tobacco usage or history of. ROS: 19:10 Constitutional: Negative for fever, chills, and weight loss, Eyes: Negative for injury, kdr pain, redness, and discharge, Neck: Negative for injury, pain, and swelling, Cardiovascular: Negative for chest pain, palpitations, and edema, Respiratory: Negative for shortness of breath, cough, wheezing, and pleuritic chest pain, Abdomen/GI: Negative for abdominal pain, nausea, vomiting, diarrhea, and constipation, Back: Negative for injury and pain, : Negative for injury, bleeding, discharge, and swelling, MS/Extremity: Negative for injury and deformity, Skin: Negative for injury, rash, and discoloration, Psych: Negative for depression, anxiety, suicide ideation, homicidal ideation, and hallucinations, Allergy/Immunology: Negative for hives, rash, and allergies, Endocrine: Negative for neck swelling, polydipsia, polyuria, polyphagia, and marked weight changes, Hematologic/Lymphatic: Negative for swollen nodes, abnormal bleeding, and unusual bruising. 19:10 Neuro: Positive for altered mental status, weakness. Exam: 19:10 Constitutional: This is a well developed, well nourished patient who is awake, alert, kdr and in no acute distress. Head/Face: Normocephalic, atraumatic. Eyes: Pupils equal round and reactive to light, extra-ocular motions intact. Lids and lashes normal. Conjunctiva and sclera are non-icteric and not injected. Cornea within normal limits. Periorbital areas with no swelling, redness, or edema. Neck: Trachea midline, no thyromegaly or masses palpated, and no cervical lymphadenopathy. Supple, full range of motion without nuchal rigidity, or vertebral point tenderness. No Meningismus. Chest/axilla: Normal chest wall appearance and motion. Nontender with no deformity. No lesions are appreciated. Cardiovascular: Regular rate and rhythm with a normal S1 and S2. No gallops, murmurs, or rubs. Normal PMI, no JVD. No pulse deficits. Respiratory: Lungs have equal breath sounds bilaterally, clear to auscultation and percussion. No rales, rhonchi or wheezes noted. No increased work of breathing, no retractions or nasal flaring. Back: No spinal tenderness. No costovertebral tenderness. Full range of motion. MS/ Extremity: Pulses equal, no cyanosis. Neurovascular intact. Full, normal range of motion. 19:10 Abdomen/GI: Inspection: obese Bowel sounds: active, Palpation: soft, nontender. 19:10 Musculoskeletal/extremity: Pulses: noted to be 1+ in the right posterior tibial artery and left posterior tibial artery, Poor perfusion and sluggish cap refill but no apparent gangrene - cellulitis on dorsum of toes 2,3,4 . Vital Signs: 09:34 BP 139 / 76; Pulse 97; Resp 16; Temp 97.6(TE); Pulse Ox 98% on R/A; Weight 99.34 kg; ss Height 5 ft. 5 in. (165.10 cm); Pain 0/10; 10:30 BP 147 / 69; Pulse 95; Resp 11; Pulse Ox 99% ; bp 11:30 BP 155 / 78; Pulse 98; Resp 16; Pulse Ox 100% ; bp 13:04 BP 136 / 74; Pulse 97; Resp 15; Pulse Ox 100% ; bp 14:00 BP 153 / 85; Pulse 95; Resp 16; Pulse Ox 95% ; bp 15:00 BP 151 / 82; Pulse 93; Resp 16; Pulse Ox 100% ; bp 16:00 BP 152 / 82; Pulse 94; Resp 16; Pulse Ox 100% ; bp 17:00 BP 136 / 80; Pulse 92; Resp 17; Pulse Ox 100% ; bp 19:15 BP 103 / 92; Pulse 96; Resp 20 S; Pulse Ox 100% ; ad5 20:30 BP 131 / 77; Pulse 96; Resp 18 S; Pulse Ox 100% on R/A; ad5 21:30 BP 148 / 77; Pulse 96; Resp 18 S; Pulse Ox 99% on R/A; ad5 09:34 Body Mass Index 36.44 (99.34 kg, 165.10 cm) ss MDM: 12:55 Patient medically screened. kdr 19:10 Data reviewed: vital signs, nurses notes, lab test result(s), radiologic studies. kdr Counseling: I had a detailed discussion with the patient and/or guardian regarding: the historical points, exam findings, and any diagnostic results supporting the discharge/admit diagnosis, lab results, radiology results, the need for outpatient follow up. 11/21 09:58 Order name: Basic Metabolic Panel; Complete Time: 12:49 kdr 11/21 09:58 Order name: CBC with Diff; Complete Time: 12:49 kdr 11/21 09:58 Order name: LFT's; Complete Time: 12:49 kdr 11/21 09:58 Order name: Magnesium; Complete Time: 12:49 kdr 11/21 09:58 Order name: NT PRO-BNP; Complete Time: 12:49 kdr 11/21 09:58 Order name: PT-INR; Complete Time: 12:49 kdr 11/21 09:58 Order name: Troponin (emerg Dept Use Only); Complete Time: 12:49 kdr 11/21 09:58 Order name: XRAY Chest (1 view); Complete Time: 12:49 kdr 11/21 11:06 Order name: Glucose, Ancillary Testing; Complete Time: 12:49 EDMS 11/21 12:53 Order name: CT Head Brain wo Cont; Complete Time: 13:53 kdr 11/21 13:14 Order name: Glucose, Ancillary Testing; Complete Time: 13:53 EDMS 11/21 14:00 Order name: Foot Left 2 View XRAY; Complete Time: 16:24 kdr 11/21 14:00 Order name: Procalcitonin kdr 11/21 14:00 Order name: Lactate; Complete Time: 16:43 kdr 11/21 09:58 Order name: EKG; Complete Time: 09:59 kdr 11/21 09:58 Order name: Cardiac monitoring; Complete Time: 10:15 kdr 11/21 09:58 Order name: EKG - Nurse/Tech; Complete Time: 10:15 kdr 11/21 09:58 Order name: IV Saline Lock; Complete Time: 10:15 kdr 11/21 09:58 Order name: Labs collected and sent; Complete Time: 10:15 kdr 11/21 09:58 Order name: O2 Per Protocol; Complete Time: 10:15 kdr 11/21 09:58 Order name: O2 Sat Monitoring; Complete Time: 10:15 kdr 11/21 10:22 Order name: FSBS; Complete Time: 10:52 kdr Administered Medications: 15:35 Drug: Zosyn (piperacillin-tazobactam) 3.375 grams Route: IVPB; Infused Over: 60 mins; bp Site: right hand; 16:30 Follow up: IV Status: Completed infusion; IV Intake: 100ml bp 16:29 Drug: vancoMYCIN 1 grams Route: IVPB; Infused Over: 2 hrs; Site: left antecubital; bp 21:44 Follow up: IV Status: Completed infusion ad5 Disposition Summary: 11/21/20 16:23 Transfer Ordered Transfer Location: [facility] kdr Reason: Higher level of care kdr Condition: Fair(11/21/20 16:23) kdr Problem: an acute exacerbation(11/21/20 16:23) kdr Symptoms: are unchanged(11/21/20 16:23) kdr Accepting Physician: DINAH(11/21/20 22:10) ad5 Diagnosis - End stage renal disease(11/21/20 16:23) kdr - Cellulitis of left lower limb - Dorsum of left toes kdr - Altered mental status, unspecified(11/21/20 16:24) kdr Forms: - Medication Reconciliation Form kdr - SBAR form kdr Signatures: Dispatcher [employer] EDMS Bereket Palma MD MD kdr Lisa Lantigua RN RN ss Chris Gabriel RN RN Fransico Justin ad5 Corrections: (The following items were deleted from the chart) 15:53 12:55 Telemetry/MedSurg (Inpatient) kdr ss 15:53 12:55 kdr ss 16:22 12:55 Inpatient Admission kdr kdr 16:22 12:55 Lemos, A kdr kdr 16:22 12:55 Fair kdr kdr 16:22 12:55 an acute exacerbation kdr kdr 16:22 12:55 have improved kdr kdr 16:22 12:55 Standard kdr kdr 16:22 12:55 Altered mental status, unspecified kdr kdr 16:22 12:55 End stage renal disease kdr kdr 16:22 15:53 [facility] ER HOLD ss kdr 16:22 15:53 ERHOLD- ss kdr 16:24 16:23 [facility] kdr kdr 22:10 16:24 [facility] kdr ad5
--- NOTE | 2020-11-21 13:43 | RAD REPORT ---
EXAM DESCRIPTION: CT - Head Brain Wo Cont - 11/21/2020 1:24 pm CLINICAL HISTORY: CONFUSED COMPARISON: HEAD BRAIN W O CONTRAST dated 10/18/2010 TECHNIQUE: Axial 5 mm thick images of the head were obtained without IV contrast. All CT scans are performed using dose optimization technique as appropriate and may include automated exposure control or mA/KV adjustment according to patient size. FINDINGS: No intracranial hemorrhage, mass, edema or shift of mid-line structures. No acute infarcti on changes seen. No cortical edema or sulcal effacement. There is evidence for minimal volume loss wi th ventricles in proportion. There is some minimal white matter signal abnormality seen. Mastoid air cells and visualized portions of the paranasal sinuses are clear. Right globe prosthesis noted. No acute orbital finding. No acute bony findings. No significant change from 2010. IMPRESSION: Negative non-contrast CT head examination for acute finding.
[2020-11-21] MEDS ORDERED: PIPERACIL/TAZO 3.375 GM VIAL IV ONE (15:30)
[2020-11-21] MEDS ORDERED: NA CHLORIDE 0.9% 100 ML ONE (15:30)
[2020-11-21] MEDS ORDERED: VANCOMYCIN/NS 1 gm 1 GM/250 ML BAG IVPB ONE (16:00)
--- NOTE | 2020-11-21 16:15 | RAD REPORT ---
EXAM DESCRIPTION: RAD - Foot Left 2 View - 11/21/2020 2:58 pm CLINICAL HISTORY: PAIN COMPARISON: No comparisons FINDINGS: The left foot two-view examination was performed. AP projection is not optimally positione d. No fracture, dislocation or periosteal reaction. No acute or destructive bony process. No periarticu lar abnormality seen. No air or foreign body in the soft tissues. IMPRESSION: Negative left foot examination.
[2020-11-21] MEDS ORDERED: VANCOMYCIN 1 GM/VIAL ONE (16:39)
[2020-11-21] MEDS ORDERED: NA CHLORIDE 0.9% 0 ML ONE (16:40)
[2020-11-21 22:34] VITALS: TEMP 97.6
[2020-11-21 22:49] VITALS: BP 148/77; O2SAT 99
== END 2020-11-21 22:10 | disposition short-term general hospital (02) ==
LOC: ER 09:14
DX: E11.22 Type 2 diabetes mellitus with diabetic chronic kidney disease (principal); I12.0 Hypertensive chronic kidney disease with stage 5 chronic kidney disease or end stage renal disease; N18.6 End stage renal disease; L03.032 Cellulitis of left toe; Z99.2 Dependence on renal dialysis; Z91.048 Other nonmedicinal substance allergy status
CPT/HCPCS: 85025; 80048; 36415; 83735; 85610; 82947 ×2; 80076; 83605; 84484; 84145; 83880; 70450; 71045; 73620; J2543; J3370; 93005; J7050

== ENCOUNTER 2021-02-23 18:14 | Emergency (ER) | payer OTHER ==
[2021-02-23] MEDS ORDERED: FENTANYL CITR 100 MCG/2 ML ONE (19:54)
--- NOTE | 2021-02-23 20:59 | RAD REPORT ---
EXAM DESCRIPTION: US - Extremity Venous Uni Ltd - 02/23/2021 8:38 pm CLINICAL HISTORY: Pain COMPARISON: None. TECHNIQUE: Real-time sonographic evaluation of the left lower extremity deep venous system was perfo rmed. FINDINGS: The posterior tibial vein is noncompressible and without flow. The other vessels within th e left lower extremity are patent. IMPRESSION: Positive for thrombosis of the left posterior tibial vein .
--- NOTE | 2021-02-23 21:02 | RAD REPORT ---
EXAM DESCRIPTION: US - Lower Extremity Artery Uni Ltd - 02/23/2021 8:38 pm CLINICAL HISTORY: PAIN COMPARISON: Lower Extremity Artery Uni Ltd dated 04/02/2020 FINDINGS: Triphasic flow is present within the left common femoral artery. Monophasic flow is presen t in the proximal SFA extending to the posterior tibial arteries and dorsalis pedis arteries. Moderat e plaque is noted in the dorsalis pedis artery. Color flow difficult to see in the distal SFA. There is monophasic flow in the distal SFA. IMPRESSION: Hemodynamically significant stenoses with monophasic flow extending from the proximal SF A to the posterior tibial arteries and dorsalis pedis arteries. No occlusion is seen.
[2021-02-23 21:32] LABS: Absolute Lymphocytes (CBC) 0.5 K/uL (0.7-4.9); Basophils % 0.4 % (0-1.3); Hematocrit 22.8 % (39.6-49.0); MPV 7.3 fL (7.6-11.3); RBC Red Blood Cell Count 2.57 M/uL (4.33-5.43)
[2021-02-23 21:33] LABS: Protime INR 1.46
[2021-02-23] MEDS ORDERED: MORPHINE 2 MG/ML SYR ONE (21:45)
[2021-02-23] MEDS ORDERED: NA CHLORIDE 0.9% 100 ML ONE (21:45)
[2021-02-23] MEDS ORDERED: PIPERACIL/TAZO 3.375 GM VIAL IV ONE (21:45)
[2021-02-23 21:56] LABS: Albumin 2.3 g/dL (3.4-5.0); Bilirubin Direct 0.3 mg/dL (0-0.2); Bilirubin Total 1.3 mg/dL (0.2-1.0); Potassium 3.8 mmol/L (3.5-5.1); Protein, Total 7.4 g/dL (6.4-8.2)
--- NOTE | 2021-02-23 22:08 | RAD REPORT ---
EXAM DESCRIPTION: RAD - Foot Left 3 View - 02/23/2021 9:24 pm CLINICAL HISTORY: PAIN COMPARISON: Foot Left 2 View dated 11/21/2020 FINDINGS: Deformity at the third and fourth toes noted. This may be secondary to underlying fracture , postoperative changes, or osteomyelitis. This involves the phalanges. Peripheral vascular calcifica tions. Vascular stent in the posterior tibial artery. IMPRESSION: Deformity of the third and fourth toes at the phalanges is not well characterized. This may be a combination of postoperative changes and/or osteomyelitis. Consider cross-sectional imaging and/or correlation with patient's surgical history for further evaluation
--- NOTE | 2021-02-23 22:33 | EDPHYS ---
Physician Documentation [facility] Name: Shekhar Gambino Age: 55 yrs Sex: Male : 1965 Arrival Date: 02/23/2021 Time: 18:16 Bed 13 Private MD: Izabela Lemos C ED Physician Maxi Clark HPI: 02/23 19:20 This 55 yrs old Male presents to ER via Ambulatory with complaints of Leg Pain.cp 19:20 The patient presents with pain. The complaints affect the lower leg. Onset: The cp symptoms/episode began/occurred increasing over past several days. Modifying factors: the symptoms are aggravated by weight bearing. Associated signs and symptoms: Pertinent positives: calf tenderness, warmth, Pertinent negatives fever. Treatment prior to arrival includes: no previous treatment. Patient reports history of vascular surgery to left lower leg [address] Donnelly with [facility]. Patient reports he is scheduled to have amputation of multiple toes on left foot. Comes to ED tonight with increasing pain to left lower leg, wounds to left lower leg. Reports he did run out of prescribed Luminary Micro pain med. Historical: - Allergies: 18:52 Eliquis; hb - PMHx: 18:52 Diabetes - IDDM; Dialysis; High Cholesterol; Hypertension; hb - Immunization history:: Client reports receiving the 2nd dose of the Covid vaccine. - Social history:: Smoking status: Patient denies any tobacco usage or history of. ROS: 19:30 Constitutional: Negative for body aches, chills, fever, poor PO intake. cp 19:30 Eyes: Negative for injury, pain, redness, and discharge. cp 19:30 ENT: Negative for ear pain, sore throat, difficulty swallowing, difficulty handling secretions. 19:30 Cardiovascular: Negative for chest pain. 19:30 Respiratory: Negative for cough, shortness of breath, wheezing. 19:30 Abdomen/GI: Negative for abdominal pain, nausea, vomiting, and diarrhea. 19:30 MS/extremity: Positive for pain, swelling, tenderness, of the left lower leg. 19:30 Neuro: Negative for altered mental status, dizziness, headache, weakness. 19:30 All other systems are negative. Exam: 19:33 Constitutional: The patient appears in no acute distress, alert, awake, cp non-diaphoretic, non-toxic, well developed, well nourished, obese, uncomfortable. 19:33 Head/Face: Normocephalic, atraumatic. cp 19:33 Eyes: Periorbital structures: appear normal, Conjunctiva: normal, no exudate, no injection, Sclera: no appreciated abnormality, Lids and lashes: appear normal, bilaterally. 19:33 ENT: External ear(s): are unremarkable, Nose: is normal, Mouth: Lips: moist, Oral mucosa: moist, Posterior pharynx: Airway: no evidence of obstruction, patent. 19:33 Neck: ROM/movement: is normal, is supple, without pain, no range of motions limitations, no nuchal rigidity. 19:33 Chest/axilla: Inspection: normal. 19:33 Cardiovascular: Rate: normal, Rhythm: regular, JVD: is not appreciated. 19:33 Respiratory: the patient does not display signs of respiratory distress, Respirations: normal, no use of accessory muscles, no retractions, labored breathing, is not present, Breath sounds: are clear throughout, no decreased breath sounds. 19:33 Abdomen/GI: Inspection: abdomen appears normal. 19:33 Back: pain, is absent, ROM is normal. 19:33 Musculoskeletal/extremity: Extremities: noted in the left foot: multiple open wounds noted to multiple toes with foul smelling, purulent drainage, toes 3 and 4 appear discolored, Pulses: palpable, weak bilateral dorsalis pedis, Calf tenderness, that is moderate, of the left lower extremeity, the left foot decreased sensation. 19:33 Neuro: Orientation: to person, place \T\ time. Mentation: is normal. 19:45 ECG was reviewed by the Attending Physician. cp Vital Signs: 18:50 BP 101 / 49; Pulse 99; Resp 20; Temp 98.9; Pulse Ox 94% on R/A; Weight 97 kg; Pain 9/10;kc4 19:05 BP 117 / 55; Pulse 88; Resp 16; Temp 98.8; Pulse Ox 100% on R/A; Pain 10/10; kc4 22:23 BP 113 / 75; Pulse 88; Resp 18; Temp 98.9; Pulse Ox 99% on R/A; Pain 5/10; kc4 23:28 BP 116 / 55; Pulse 80; Resp 18; Temp 98.8; Pulse Ox 100% on R/A; Pain 8/10; kc4 02/24 00:47 BP 107 / 58; Pulse 78; Resp 20; Temp 98.9; Pulse Ox 100% on R/A; Pain 3/10; kc4 00:59 BP 113 / 58; Pulse 78; Resp 18; Pulse Ox 100% on R/A; Pain 3/10; kc4 MDM: 02/23 19:12 Patient medically screened. cp 19:30 Differential diagnosis: DVT, osteomyelitis, cellulitis, arterial occlusion. cp 23:10 ED course: VS noted, just spoke with the on-call vascular surgeon Dr. Fox at [facility] the [facility] who will consult on patient and request transfer to the hospitalist services discussed labs today indicating concern for osteomyelitis of the left foot and cellulitis. Patient has now developed an embolism of the posterior tibial vein and so we will start patient on heparin.. 23:15 Data reviewed: vital signs, nurses notes, lab test result(s), EKG, radiologic studies, plain films, ultrasound. 23:45 Physician consultation: was contacted at 23:45, regarding regarding transfer, to [facility]. patient's condition, accepting physician will be DR Vigil. 02/23 19:15 Order name: Basic Metabolic Panel; Complete Time: 22:33 02/23 22:33 Interpretation: Normal except: NA 135; GLUC 269; BUN 34; CRE 5.41; GFR 11. 02/23 19:15 Order name: CBC with Diff; Complete Time: 23:08 02/23 21:38 Interpretation: Normal except: WBC 18.30; RBC 2.57; HGB 7.2; HCT 22.8; MCV 88.8; MCHC cp 31.4; MPV 7.3; COLLETTE% 92.5; LYM% 3.0; NEUT A 16.9; LYMA 0.5. 02/23 19:15 Order name: LFT's; Complete Time: 22:33 cp 02/23 19:15 Order name: Magnesium; Complete Time: 22:33 cp 02/23 19:15 Order name: PT-INR; Complete Time: 21:38 cp 02/23 19:15 Order name: Blood Culture Adult (2) cp 02/23 19:15 Order name: ESR; Complete Time: 23:08 cp 02/23 19:15 Order name: CRP; Complete Time: 22:33 cp 02/23 19:15 Order name: Wound Culture cp 02/23 19:15 Order name: Procalcitonin; Complete Time: 22:33 cp 02/23 19:15 Order name: Extremity Venous Unilateral Ltd; Complete Time: 21:11 cp 02/23 21:14 Interpretation: Report reviewed. cp 02/23 19:22 Order name: Lactate; Complete Time: 22:33 cp 02/23 23:13 Order name: SARS-COV-2 RT PCR; Complete Time: 23:44 EDMS 02/23 19:15 Order name: Cardiac monitoring; Complete Time: 19:45 cp 02/23 19:15 Order name: IV Saline Lock; Complete Time: 19:47 cp 02/23 19:15 Order name: Labs collected and sent; Complete Time: 21:24 cp 02/23 19:15 Order name: O2 Per Protocol; Complete Time: 19:45 cp 02/23 19:15 Order name: O2 Sat Monitoring; Complete Time: 21:24 cp 02/23 19:23 Order name: LE Artery Uni Ltd; Complete Time: 21:11 cp 02/23 21:14 Interpretation: Report reviewed. cp 02/23 20:53 Order name: XRAY Foot LEFT 3 View; Complete Time: 22:33 cp 02/23 23:30 Order name: Wound Care: left foot dressing; Complete Time: 00:12 cp EC:45 Rate is 86 beats/min. Rhythm is regular. IN interval is normal. QRS interval is normal. cp QT interval is normal. Interpreted by me. Reviewed by me. Administered Medications: 19:45 Drug: fentaNYL (PF) 25 mcg Route: IVP; Site: right wrist; bs2 23:29 Follow up: Response: No adverse reaction kc4 23:30 Follow up: Response: No adverse reaction kc4 21:22 Drug: Zosyn (piperacillin-tazobactam) 3.375 grams Route: IVPB; Infused Over: 60 mins; kc4 Site: right forearm; 23:29 Follow up: Response: No adverse reaction; IV Status: Completed infusion kc4 21:22 Drug: morphine 2 mg Route: IVP; Site: right femoral; kc4 23:29 Follow up: Response: No adverse reaction kc4 02/24 00:59 Follow up: BP 113 / 58; Pulse 78 bpm; Resp 18 bpm; Pulse Ox 100% RA; Pain 08/01 Adult; 4 Response: No adverse reaction; Pain is decreased 02/23 23:38 Drug: vancoMYCIN 1 grams Route: IVPB; Infused Over: 2 hrs; Site: right forearm; [facility] 23:52 Drug: Heparin (DVT/PE- Bolus per protocol) - HEParin 80 units/kg {Co-Signature: bs2 kc4 (Destiny Bennett RN).} Route: IVP; Site: right jugular; 02/24 01:04 Follow up: Response: No adverse reaction; pt transported EMS with Heparin drip [facility] 02/23 23:53 Drug: Heparin (DVT/PE Drip) 18 units/kg/hr - (HEParin 57369 units, D5W 500 ml) [facility] {Co-Signature: bs2 (Destiny Bennett RN).} Route: IV; Rate: calculated rate; Site: right jugular; 02/24 01:06 Follow up: IV Status: Infusion continued upon transfer [facility] Disposition: 07:04 Co-signature as Attending Physician, Maxi Clark MD. 7 Disposition Summary: 02/23/21 22:33 Transfer Ordered Transfer Location: [facility] cp Reason: Higher level of care cp Condition: Fair cp Problem: an ongoing problem cp Symptoms: have improved cp Accepting Physician: DR Vigil(02/24/21 01:08) kc4 Diagnosis - Acute embolism and thrombosis of other specified deep vein of left lower extremity cp - Cellulitis of left lower limb cp - End stage renal disease cp Forms: - Medication Reconciliation Form cp - SBAR form cp Signatures: Dispatcher [employer] EDMS Johann Bradshaw PA PA cp Amanda Lara RN RN hb Holmes, Maurice, MD MD [facility] Destiny Bennett RN RN bs2 Nida Roca [facility] Destiny Bennett RN bs2 Corrections: (The following items were deleted from the chart) 02/23 22:14 21:47 CORONAVIRUS+BRZ ordered. EDNH EDMS 23:49 22:33 Doctor cp cp 02/24 01:08 02/23 23:49 DR Vigil [facility] 02/24 21:52 02/23 23:45 Physician consultation: was contacted at 23:45, regarding regarding cp transfer, to [facility]. patient's condition, accepting physician will be, cp
--- NOTE | 2021-02-23 22:33 | ER ---
Nurse's Notes [facility] Name: Shekhar Gambino Age: 55 yrs Sex: Male : 1965 Arrival Date: 02/23/2021 Time: 18:16 Bed 13 Private MD: Izabela Lemos C Diagnosis: Acute embolism and thrombosis of other specified deep vein of left lower extremity;Cellulitis of left lower limb;End stage renal disease Presentation: 02/23 18:50 Chief complaint: Severe left leg pain since vascular surgery on same leg 6 weeks ago. hb Coronavirus screen: At this time, the client does not indicate any symptoms associated with coronavirus-19. Ebola Screen: No symptoms or risks identified at this time. Risk Assessment: Do you want to hurt yourself or someone else? Patient reports no desire to harm self or others. Onset of symptoms was December 2020. 18:50 Method Of Arrival: Ambulatory hb 18:50 Acuity: AZAEL 3 hb 02/24 00:55 Note Phone report given to Coral MYERS at [facility]. Note BS report given to EMS. Pts kc4 prepped and ready for transport. 01:07 Initial Sepsis Screen: Does the patient meet any 2 criteria? No. Patient's initial kc4 sepsis screen is negative. Does the patient have a suspected source of infection? Yes: Skin breakdown/wound. Triage Assessment: 00:57 General: Appears distressed, uncomfortable, unkempt, well nourished, Behavior is kc4 cooperative, restless. Historical: - Allergies: 02/23 18:52 Eliquis; hb - PMHx: 18:52 Diabetes - IDDM; Dialysis; High Cholesterol; Hypertension; hb - Immunization history:: Client reports receiving the 2nd dose of the Covid vaccine. - Social history:: Smoking status: Patient denies any tobacco usage or history of. Screenin:48 Fall Risk None identified. Secondary diagnosis (15 points) impaired mobility, PVD with kc4 left diabetic foot ulceration . IV access (20 points). Ambulatory Aid- None/Bed Rest/Nurse Assist (0 pts). Gait- Impaired (20 pts.). Mental Status- Oriented to own ability (0 pts). Total Lei Fall Scale indicates High Risk Score (45 or more points). Fall prevention measures have been instituted. Side Rails Up X 2 Family Present and informed to notify staff if the need to leave the bedside As available patient and family educated on Fall Prevention Program and Strategies. 22:23 Abuse screen: Denies threats or abuse. Nutritional screening: No deficits noted. On no kc4 prescribed diet Difficulty chewing/swallowing? No. Tuberculosis screening: No symptoms or risk factors identified. Never had TB. Possible symptoms: None Risk factors: None Intervention for positive screen:. Assessment: 19:50 Pain: Complains of pain in left foot and left leg Pain does not radiate. Pain currently kc4 is 10 out of 10 on a pain scale. at worst was 10 out of 10 on a pain scale. level that patient reports is acceptable is 2 out of 10 on a pain scale. Quality of pain is described as burning, sharp, shooting, throbbing, Pain began 2-3 days ago. Is continuous, Alleviated by medications, Aggravated by weight bearing, Noted to be guarding, moaning, Also complains of no other associated symptoms. Neuro: No deficits noted. Cardiovascular: No deficits noted. Cardiovascular: No deficits noted. Respiratory: No deficits noted. GI: No deficits noted. : No deficits noted. EENT: No deficits noted. Derm:. 02/24 00:48 Derm:. Musculoskeletal: diabetic foot ulcer. Reports pain in left foot. kc4 Vital Signs: 02/23 18:50 BP 101 / 49; Pulse 99; Resp 20; Temp 98.9; Pulse Ox 94% on R/A; Weight 97 kg; Pain 9/10;kc4 19:05 BP 117 / 55; Pulse 88; Resp 16; Temp 98.8; Pulse Ox 100% on R/A; Pain 10/10; kc4 22:23 BP 113 / 75; Pulse 88; Resp 18; Temp 98.9; Pulse Ox 99% on R/A; Pain 5/10; kc4 23:28 BP 116 / 55; Pulse 80; Resp 18; Temp 98.8; Pulse Ox 100% on R/A; Pain 8/10; kc4 02/24 00:47 BP 107 / 58; Pulse 78; Resp 20; Temp 98.9; Pulse Ox 100% on R/A; Pain 3/10; kc4 00:59 BP 113 / 58; Pulse 78; Resp 18; Pulse Ox 100% on R/A; Pain 3/10; kc4 ED Course: 02/23 18:16 Patient arrived in ED. mr 18:16 Izabela Lemos MD is Private Physician. mr 18:52 Triage completed. hb 18:52 Arm band placed on. hb 19:02 Johann Bradshaw PA is PHCP. cp 19:02 Maxi Clark MD is Attending Physician. cp 19:04 Nida Roca is Primary Nurse. kc4 19:48 Patient has correct armband on for positive identification. Bed in low position. Call kc4 light in reach. Side rails up X 1. 19:48 No provider procedures requiring assistance completed. wound culture. Inserted saline kc4 lock: 20 gauge in right wrist, using aseptic technique. 19:59 Wound Culture Sent. kc4 20:37 US Extremity Venous Unilateral Ltd In Process Unspecified. EDMS 20:37 US LE Artery Uni Ltd In Process Unspecified. EDMS 21:20 Inserted saline lock: 18 gauge in right EJ, using aseptic technique. bs2 21:23 XRAY Foot LEFT 3 View In Process Unspecified. EDMS 21:23 Lactate Sent. kc4 21:23 Procalcitonin Sent. kc4 21:23 Wound Culture Sent. kc4 21:23 ESR Sent. kc4 21:23 CRP Sent. kc4 21:24 Blood Culture Adult (2) Sent. kc4 21:24 Basic Metabolic Panel Sent. kc4 21:24 CBC with Diff Sent. kc4 21:24 LFT's Sent. kc4 21:24 Magnesium Sent. kc4 21:24 PT-INR Sent. kc4 21:50 Initiated transfer at [facility] with Valerie Limson. eb 23:06 Valerie Bhandari called back from [facility] with their vascular physician to speak with eb THAIS Arboleda, pt provider regarding the transfer request. 23:41 Valerie Bhandari called back with the hospitalist to speak with THAIS Arboleda, pt eb provider regarding the transfer request. 23:55 Blood Culture Adult (2) Sent. kc4 23:56 Valerie Bhandari gave admin approval. The pt is going to [facility] Room 1031. The accepting physician is Dr. Vigil. Nurse to call report to . Face sheet, MOT, and covid result to be faxed to per Valerie's request. 02/24 00:10 Dressings: Kerlix X 1; left foot non-adherent dressing x 1 plantar aspect of left first dh4 toe, plantar aspect of left second toe, plantar aspect of left third toe, plantar aspect of left fourth toe, plantar aspect of left fifth toe and ball of left foot. 01:07 Patient transferred, IV remains in place. kc4 Administered Medications: 02/23 19:45 Drug: fentaNYL (PF) 25 mcg Route: IVP; Site: right wrist; bs2 23:29 Follow up: Response: No adverse reaction kc4 23:30 Follow up: Response: No adverse reaction kc4 21:22 Drug: Zosyn (piperacillin-tazobactam) 3.375 grams Route: IVPB; Infused Over: 60 mins; kc4 Site: right forearm; 23:29 Follow up: Response: No adverse reaction; IV Status: Completed infusion kc4 21:22 Drug: morphine 2 mg Route: IVP; Site: right femoral; kc4 23:29 Follow up: Response: No adverse reaction kc4 02/24 00:59 Follow up: BP 113 / 58; Pulse 78 bpm; Resp 18 bpm; Pulse Ox 100% RA; Pain 08/01 Adult; kc4 Response: No adverse reaction; Pain is decreased 02/23 23:38 Drug: vancoMYCIN 1 grams Route: IVPB; Infused Over: 2 hrs; Site: right forearm; kc4 23:52 Drug: Heparin (DVT/PE- Bolus per protocol) - HEParin 80 units/kg {Co-Signature: bs2 kc4 (Destiny Bennett RN).} Route: IVP; Site: right jugular; 02/24 01:04 Follow up: Response: No adverse reaction; pt transported EMS with Heparin drip kc4 02/23 23:53 Drug: Heparin (DVT/PE Drip) 18 units/kg/hr - (HEParin 45459 units, D5W 500 ml) kc4 {Co-Signature: bs2 (Destiny Bennett RN).} Route: IV; Rate: calculated rate; Site: right jugular; 02/24 01:06 Follow up: IV Status: Infusion continued upon transfer kc4 Intake: Outcome: 02/23 22:33 ER care complete, transfer ordered by MD. gallagher 10/03 00:57 Transferred by ground EMS to [facility]. kc4 Condition: stable 01:07 Instructed on the need for transfer. kc4 01:08 Patient left the ED. kc4 Addendum: 03/01/2021 07:41 Addendum: Culture Results: Positive wound culture. called the [facility]/ e jossue Hunt Rn asked if we could fax the culture report to [facility] [address] that their fax machine is down. Faxed to [phone]. Signatures: Dispatcher [employer] EDMT Greta Hermosillo Johann Bradshaw, Amanda Miller cp, RN RN Billie Woods Donald 4 Destiny Bennett, LUCIA RN bs2 Nida Roca 4 Destiny Bennett RN bs2 Corrections: (The following items were deleted from the chart) 02/23 23:51 18:50 BP 101 / 49; Pulse 99bpm; Resp 20bpm; Pulse Ox 94% RA; Temp 98.9F; Pain 9/10; hb kc4
[2021-02-23] MEDS ORDERED: HEPARIN/D5W 25,000 UNIT/500 ML BAG IV ONE (23:45)
[2021-02-23] MEDS ORDERED: VANCOMYCIN 1 GM/VIAL ONE (23:45)
[2021-02-23] MEDS ORDERED: NA CHLORIDE 0.9% 250 ML ONE (23:45)
[2021-02-23] MEDS ORDERED: HEPARIN 5000 UNIT/ML 1 ML VIAL ONE (23:45)
[2021-02-24 01:20] VITALS: O2SAT 100
[2021-02-24 01:22] VITALS: TEMP 98.9
[2021-02-24 01:23] VITALS: BP 113/58
--- NOTE | 2021-02-26 18:17 | EKG ---
Test Date: 2021-02-23 Test Time: 19:39:10 Artist Suspect: FANNY MEASUREMENT RESULTS: Intervals: Rate: 86 IL: 174 QRSD: 90 QT: 362 QTc: 433 [place]: P: 44 IL: 174 QRS: 56 T: 66 INTERPRETIVE STATEMENTS: Normal sinus rhythm Nonspecific ST and T wave abnormality Abnormal ECG Compared to ECG 11/21/2020 10:09:47 ST (T wave) deviation now present Right-axis deviation no longer present Myocardial infarct finding no longer present Electronically Signed On 02-26-21 18:06:49 CDT by Guy Catalan
== END 2021-02-24 01:08 | disposition short-term general hospital (02) ==
LOC: ER 18:14
DX: I82.4Z2 Acute embolism and thrombosis of unspecified deep veins of left distal lower extremity (principal); I82.442 Acute embolism and thrombosis of left tibial vein; L03.116 Cellulitis of left lower limb; N18.6 End stage renal disease; Z20.822 Contact with and (suspected) exposure to COVID-19
CPT/HCPCS: 93005; 87040 ×2; 87070; 85025; 80048; 36415; 83735; 87205 ×2; 85610; 80076; 83605; 85652; 87077 ×2; 87186 ×2; 84145; 86140; 73630; 93926; 93971; 99285; U0003; J1644 ×2; J2543; J3010; J3370; J2270; J7050

== ENCOUNTER 2021-04-30 10:55 | Inpatient (IN) | payer OTHER ==
--- OUTSIDE RECORDS SUMMARY | 2021-04-30 11:09 | XMS REPORT | Continuity of Care Document ---
:1965 Author Organization [facility] t Address [address] [place] [address] Care Team Providers Name Role Phone LEMOS, Sarita Primary Care Physician Unavailable CHELI DONNELLY Attending Clinician Unavailable JACQUES Attending Clinician Unavailable YUSUF HAIRSTON Attending Clinician Unavailable Mohit Cheek Attending Clinician Unavailable BHARATHI TRIVEDI Attending Clinician Unavailable Werner Jimenez DPM Attending Clinician CHELI DONNELLY Attending Clinician Unavailable CHEVY PITT Attending Clinician Unavailable Cheli Donnelly MD Attending Clinician LISA EGAN Attending Clinician Unavailable Karlo LYON Attending Clinician Unavailable Quinn CARRILLO Attending Clinician Ruel GUARDADO Attending Clinician RADHA Attending Clinician Unavailable ERIC HARDING Attending Clinician Unavailable CHELI DONNELLY Admitting Clinician Unavailable JACQUES Admitting Clinician Unavailable YUSUF HAIRSTON Admitting Clinician Unavailable KNOW Admitting Clinician Unavailable RADHA Admitting Clinician Unavailable Payers Payer Name Policy Type Policy Number Effective Date Expiration Date S [facility] MEDICARE A B [id number] 2009 2009 00:00:00 00:00:00 HU[employer] PPO SELECT [id number] 2020 2020 ASO 00:00:00 00:00:00 [employer] MEDICARE [id number] 2020 ADV 00:00:00 [employer] MEDICARE [id number] 2020 ADVANTAGE 00:00:00 MEDICARE PART A [id number] 2016 \\T\\ B - MEDICARE 00:00:00 Problems Condition Condition Condition Status Onset Resolution Last Treating Co mments Source Name Details Category Date Date Treatment Clinician Date PAD PAD Disease Active [facility] (periphera (periphera 7-30 Co llege l artery l artery 00:00: of disease) disease) 00 [facility] n [facility] e Hx of CABG Hx of CABG Disease Active [facility] 8 Theresa 00:00: of 00 Medicin e CAD CAD Disease Active [facility] (coronary (coronary 4-30 [place] artery artery 00:00: of disease) disease) 00 Medici n e ESRD (end ESRD (end Disease Active Overview: [facility] stage stage 6-22 [facility] renal renal 00:00: g of this of disease) disease) 00 note Medici n on on might be e dialysis dialysis different [facility] ([facility]) from the original. Secondary to HTN and DMOn HD since 09/18/10 on M, W, F via LUE AVFUnderg oing renal transplan t evaluatio n HTN HTN Disease Active [facility] (hypertens (hypertens 6-22 Co llege ion) ion) 00:00: of 00 Medicin e DM DM Disease Active [facility] (diabetes (diabetes 6-22 [place] mellitus) mellitus) 00:00: of [facility] 00 Medici n e Allergies, Adverse Reactions, Alerts Allergy Allergy Status Severity Reaction(s) Onset Inactive Treating Comm ents Source Name Type Date Date Clinician APIXABAN Allergy Active [facility] Apixaban Propensi Active "I break [facility] or ty to 3-09 out in College adverse 00:00: scabs"Oth of reaction 00 er Medicin s to reaction( e drug s): Itching/H jailene/Rash No Known DA Active [facility] [place] [facility] apixaban DA Active [facility] [place] [facility] No Known DA [facility] 07[facility] [place] [facility] apixaban DA Active [facility] RASH 07[facility]31 [place] [facility] Apixaban Allergy Active Other [facility] to 07-31 reaction( Health substan 00:00: s): e 00 Itching/H jailene/Rash NO KNOWN Allergy Active [facility] Social History Social Habit Start Date Stop Date Quantity Comments Source Exposure to Not sure [facility] SARS-CoV-2 (event) Alcohol intake 2021-01-24 2021-01-24 Current [facility] Col lege 00:00:00 00:00:00 non-drinker of of Medicin e alcohol (finding) Tobacco use and 2016-11-13 2016-11-13 Never used [facility] Co llege exposure 00:00:00 00:00:00 of Medicine Sex [birth year] [facility] 00:00:00 00:00:00 Smoking Status Start Date Stop Date Source Unknown if ever smoked [facility] Never smoker [facility] o f Medicine Medications Ordered Filled Start Stop Current Ordering Indication Dosage Frequency Signature Comments Components Source Medication Medication Date Date Medication? Clinician (SIG) Name Name Calcium Yes [id number] Take 5 [place] [facility] Acetate, 01-24 capsules Theresa Pho 15:42: by mouth. of [place], 667 31 Medicin MG CAPS e INSULIN ASP Yes [id number] Inject [facility] PROT & ASP, 01-24 into the [place] HUM, 15:42: skin. of (70-30) 100 31 Medicin UNIT/ML e SUSP Melatonin 3 Yes [id number] 1mg Take 1 mg [facility]t MG TABS 01-24 by mouth. College 15:42: of 31 Medicin e midodrine Yes [id number] 15mg Take 15 mg Chet 10 MG TABS 01-24 by mouth Colle ge 15:42: daily. of 31 Prior to Medicin dialysis e omeprazole Yes [id number] 20mg Take 20 mg Chet (PRILOSEC) 01-24 by mouth. [place] 20 MG 15:42: of capsule 31 Medicin e Aspirin 81 Yes 81mg Take 81 mg B aylor MG tablet 01-24 by mouth. Colle ge 15:42: of 31 Medicin e Calcium Yes [id number] Take 5 [place] [facility] Acetate, 01-24 capsules College Phos 15:42: by mouth. of [place], 667 31 Medicin MG CAPS e INSULIN ASP Yes [id number] Inject [facility]t PROT & ASP, 01-24 into the [place] HUM, 15:42: skin. of (70-30) 100 31 Medicin UNIT/ML e SUSP Melatonin 3 Yes [id number] 1mg Take 1 mg Chet MG TABS 01-24 by mouth. College 15:42: of 31 Medicin e midodrine Yes [id number] 15mg Take 15 mg Chet 10 MG TABS 01-24 by mouth Colle ge 15:42: daily. of 31 Prior to Medicin dialysis e omeprazole Yes [id number] 20mg Take 20 mg Chet (PRILOSEC) 01-24 by mouth. [place] 20 MG 15:42: of capsule 31 Medicin e Aspirin 81 Yes 81mg Take 81 mg B aylor MG tablet 01-24 by mouth. Colle ge 15:42: of 31 Medicin e amoxicillin Yes 1{tbl} Take 1 [facility] -clavulanat 9-02 Tablet by Col lege e 00:00: mouth two of (AUGMENTIN) 00 times Medicin 500-125 MG daily. e per tablet amoxicillin Yes 1{tbl} Take 1 [facility] -clavulanat 9-02 Tablet by Col lege e 00:00: mouth two of (AUGMENTIN) 00 times Medicin 500-125 MG daily. e per tablet hydrocodone Yes 1{tbl} Take 1 [facility] -acetaminop 8-30 Tablet by Col lege hen (NORCO) 00:00: mouth of 5-325 mg 00 every 6 Medicin tablet hours as e needed for Pain for up to 20 doses. hydrocodone Yes 1{tbl} Take 1 [facility] -acetaminop 8-30 Tablet by Col lege hen (NORCO) 00:00: mouth of 5-325 mg 00 every 6 Medicin tablet hours as e needed for Pain for up to 20 doses. gabapentin 2020- No 600mg Take 1 [place] [facility] (NEURONTIN) 8-30 Tablet by Co llege 600 MG 00:00: 04:59 mouth 3 of tablet 00 :00 times Medicin daily for e 30 days. gabapentin 2020- No 600mg Take 1 [place] [facility] (NEURONTIN) 8-21 02-30 Tablet by Co llege 600 MG 00:00: 04:59 mouth 3 of tablet 00 :00 times Medicin daily for e 30 days. clopidogrel Yes TAKE 1 [facility] (PLAVIX) 75 8-26 TABLET BY Col lege MG Tablet 00:00: MOUTH of 00 EVERY DAY Medicin e clopidogrel 2019-0 Yes TAKE 1 [facility] (PLAVIX) 75 8-26 TABLET BY Col lege MG Tablet 00:00: MOUTH of 00 EVERY DAY Medicin e clopidogrel 2019-0 Yes TAKE 1 [facility] (PLAVIX) 75 8-26 TABLET BY Col lege MG Tablet 00:00: MOUTH of 00 EVERY DAY Medicin e ELIQUIS 5 2019-0 Yes TAKE 1 [facility] MG TABS 4-29 TABLET BY Theresa 00:00: MOUTH of 00 TWICE A Medicin DAY e Calcium 2019-0 Yes [id number] 5{capsu Take 5 [facility] Acetate, 3-05 le} capsules Theresa Pho 19:10: by mouth. of [place], 667 17 Medicin MG CAPS e gabapentin 2019-0 Yes [id number] 300mg Take 300 [facility] (NEURONTIN) 3-05 mg by Theresa 300 MG 19:10: mouth 3 of capsule 17 times Medicin daily. e INSULIN ASP 2019-0 Yes [id number] Inject Chet PROT & ASP, 3-05 into the [place] HUM, 19:10: skin. of (70-30) 100 17 Medicin UNIT/ML e SUSP Melatonin 3 2019-0 Yes [id number] 1mg Take 1 mg [facility] MG TABS 3-05 by mouth. Theresa 19:10: of 17 Medicin e midodrine 2020-0 Yes [id number] 15mg Take 15 mg Chet 10 MG TABS 3-05 by mouth Colle ge 19:10: daily. of 17 Prior to Medicin dialysis e omeprazole 2020-0 Yes [id number] 20mg Take 20 mg [facility] (PRILOSEC) 3-05 by mouth. [place] 20 MG 19:10: of capsule 17 Medicin e Sevelamer 2020-0 Yes [id number] 4000mg Take 4,000 [facility] Carbonate 3-05 mg by Theresa 800 MG TABS 19:10: mouth. of 17 Medicin e amitriptyli 2020-0 Yes 50mg Take 50 mg Chet ne (ELAVIL) 3-05 by mouth [place] 25 MG 19:10: nightly. of tablet 17 Medicin e Calcium 2020-0 Yes [id number] Take 5 [place] [facility] Acetate, 3-05 capsules College Phos 13:10: by mouth. of [place], 667 17 Medicin MG CAPS e gabapentin 2020-0 Yes [id number] 300mg Take 300 [facility] (NEURONTIN) 3-05 mg by Theresa 300 MG 13:10: mouth 3 of capsule 17 times Medicin daily. e INSULIN ASP 2020-0 Yes [id number] Inject Chet PROT & ASP, 3-05 into the [place] HUM, 13:10: skin. of (70-30) 100 17 Medicin UNIT/ML e SUSP Melatonin 3 2020-0 Yes [id number] 1mg Take 1 mg Chet MG TABS 3-05 by mouth. Theresa 13:10: of 17 Medicin e midodrine 2020-0 Yes [id number] 15mg Take 15 mg [facility] 10 MG TABS 3-05 by mouth Colle ge 13:10: daily. of 17 Prior to Medicin dialysis e omeprazole 2020-0 Yes [id number] 20mg Take 20 mg [facility] (PRILOSEC) 3-05 by mouth. [place] 20 MG 13:10: of capsule 17 Medicin e Sevelamer 2020-0 Yes [id number] 4000mg Take 4,000 [facility]t Carbonate 3-05 mg by Theresa 800 MG TABS 13:10: mouth. of 17 Medicin e amitriptyli 2020-0 Yes 50mg Take 50 mg Chet ne (ELAVIL) 3-05 by mouth [place] 25 MG 13:10: nightly. of tablet 17 Medicin e Apixaban 2018-05 Yes .5{tbl} Take 0.5 [facility] (ELIQUIS) 5 2-30 tablets by Co llege MG TABS 00:00: mouth two of 00 times Medicin daily. e clopidogrel 2018-05 Yes 75mg Take 1 Tab [facility]t (PLAVIX) 75 1-18 by mouth [place] MG Tablet 00:00: daily. of 00 Medicin e Calcium Yes [id number] 5{capsu Take 5 [facility] Acetate, 7-23 le} capsules Theresa Phos 18:26: by mouth. of [place], 667 56 Medicin MG CAPS e Sevelamer Yes [id number] 4000mg Take 4,000 [facility]t Carbonate 7-23 mg by Theresa 800 MG TABS 18:26: mouth. of 56 Medicin e gabapentin Yes [id number] 300mg Take 300 [facility] (NEURONTIN) 7-23 mg by Theresa 300 MG 18:12: mouth 3 of capsule 11 times Medicin daily. e INSULIN ASP Yes [id number] Inject Chet PROT & ASP, 7-23 into the [place] HUM, 18:12: skin. of (70-30) 100 11 Medicin UNIT/ML e SUSP Melatonin 3 Yes [id number] 1mg Take 1 mg Chet MG TABS 7-23 by mouth. Theresa 18:12: of 11 Medicin e midodrine Yes [id number] 15mg Take 15 mg [facility] 10 MG TABS 7-23 by mouth Colle ge 18:12: daily. of 11 Prior to Medicin dialysis e omeprazole Yes [id number] 20mg Take 20 mg [facility] (PRILOSEC) 7-23 by mouth. [place] 20 MG 18:12: of capsule 11 Medicin e amitriptyli Yes 50mg Take 50 mg Chet ne (ELAVIL) 7-23 by mouth [place] 25 MG 18:12: nightly. of tablet 11 Medicin e BRILINTA 90 Yes TAKE 1 [facility] or MG TABS 2-25 TABLET BY Theresa 00:00: MOUTH of 00 TWICE A Medicin DAY e atorvastati Yes 40mg Take 1 Tab [facility] n (LIPITOR) 8-23 by mouth [place] 40 MG 00:00: daily. of tablet 00 Medicin e carvedilol 2017-0 Yes 3.125mg Take 1 Tab [facility] (COREG) 8-23 by mouth College 3.125 MG 00:00: two times of tablet 00 daily. Medicin e atorvastati 20170 Yes 40mg Take 1 Tab [facility] n (LIPITOR) 8-23 by mouth [place] 40 MG 00:00: daily. of tablet 00 Medicin e atorvastati 0 Yes 40mg Take 1 Tab [facility] n (LIPITOR) 8-23 by mouth [place] 40 MG 00:00: daily. of tablet 00 Medicin e aspirin EC Yes 81mg Take 1 Tab [facility] 81 MG TBEC 8-23 by mouth Colle ge 00:00: daily. of 00 Medicin e atorvastati Yes 40mg Take 1 Tab [facility] n (LIPITOR) 8-23 by mouth [place] 40 MG 00:00: daily. of tablet 00 Medicin e carvedilol Yes 3.125mg Take 1 Tab [facility]t (COREG) 8-23 by mouth College 3.125 MG 00:00: two times of tablet 00 daily. Medicin e atorvastati 0 Yes 40mg Take 1 Tab [facility] n (LIPITOR) 8-23 by mouth [place] 40 MG 00:00: daily. of tablet 00 Medicin e carvedilol 0 Yes 3.125mg Take 1 Tab [facility] (COREG) 8-23 by mouth College 3.125 MG 00:00: two times of tablet 00 daily. Medicin e No known No [facility] No known No [facility] Vital Signs Vital Name Observation Time Observation Value Comments Source WEIGHT 2020-12-29 15:09:00 98.8 kg WEIGHT 2020-12-29 12:33:00 99.8 kg HEIGHT 2020-12-28 05:38:00 165.1 cm WEIGHT 2020-12-28 05:38:00 99.791 kg WEIGHT 2020-11-26 05:00:00 102.377 kg WEIGHT 2020-11-25 06:18:00 100.95 kg WEIGHT 2020-11-24 13:00:00 99 kg WEIGHT 2020-11-24 09:45:00 101 kg WEIGHT 2020-11-24 05:00:00 100.925 kg WEIGHT 2020-11-22 19:00:00 98.3 kg HEIGHT 2020-11-21 23:36:00 165.1 cm WEIGHT 2020-11-21 23:36:00 102.2 kg WEIGHT 2021-03-20 18:30:00 76 kg WEIGHT 2021-03-18 12:30:00 78.5 kg WEIGHT 2021-03-15 13:50:00 81.5 kg WEIGHT 2021-03-11 16:48:00 84 kg WEIGHT 2021-03-08 11:55:00 87 kg WEIGHT 2021-03-08 08:20:00 90 kg WEIGHT 2021-03-06 18:00:00 90 kg WEIGHT 2021-03-06 14:30:00 93 kg WEIGHT 2021-03-04 11:30:00 88.9 kg WEIGHT 2021-03-04 08:15:00 90.9 kg WEIGHT 2021-02-27 14:27:00 90.9 kg WEIGHT 2021-02-25 20:42:00 90.9 kg WEIGHT 2021-02-25 17:00:00 93.6 kg WEIGHT 2021-02-25 09:15:00 93.6 kg HEIGHT 2021-02-24 02:35:00 165.1 cm WEIGHT 2021-02-24 02:35:00 98.839 kg WEIGHT 2021-03-20 18:30:00 76 kg WEIGHT 2021-03-18 12:30:00 78.5 kg WEIGHT 2021-03-15 13:50:00 81.5 kg WEIGHT 2021-03-11 16:48:00 84 kg WEIGHT 2021-03-08 11:55:00 87 kg WEIGHT 2021-03-08 08:20:00 90 kg WEIGHT 2021-03-06 18:00:00 90 kg WEIGHT 2021-03-06 14:30:00 93 kg WEIGHT 2021-03-04 11:30:00 88.9 kg WEIGHT 2021-03-04 08:15:00 90.9 kg WEIGHT 2021-02-27 14:27:00 90.9 kg WEIGHT 2021-02-25 20:42:00 90.9 kg WEIGHT 2021-02-25 17:00:00 93.6 kg WEIGHT 2021-02-25 09:15:00 93.6 kg HEIGHT 2021-02-24 02:35:00 165.1 cm WEIGHT 2021-02-24 02:35:00 98.839 kg Systolic blood 2021-01-24 20:41:00 151 mm[Hg] [facility] pressure Medicine Diastolic blood 2021-01-24 20:41:00 76 mm[Hg] [facility] pressure Medicine Heart rate 2021-01-24 20:41:00 61 /min [facility] Body height 2021-01-24 20:41:00 165.1 cm [facility] Body weight 2021-01-24 20:41:00 98.884 kg [facility] ol[facility] of Medicine BMI 2021-01-24 20:41:00 36.28 kg/m2 [facility] HEIGHT 2021-01-03 17:03:00 165.1 cm WEIGHT 2021-01-03 17:03:00 101.1 kg HEIGHT 2021-01-03 17:03:00 165.1 cm WEIGHT 2021-01-03 17:03:00 101.1 kg WEIGHT 2020-12-29 15:09:00 98.8 kg WEIGHT 2020-12-29 12:33:00 99.8 kg HEIGHT 2020-12-28 05:38:00 165.1 cm WEIGHT 2020-12-28 05:38:00 99.791 kg HEIGHT 2020-12-24 10:03:00 165.1 cm WEIGHT 2020-12-24 10:03:00 99.02 kg HEIGHT 2020-12-24 10:03:00 165.1 cm WEIGHT 2020-12-24 10:03:00 99.02 kg HEIGHT 2020-12-17 15:00:00 165.1 cm WEIGHT 2020-12-17 15:00:00 100.5 kg WEIGHT 2020-11-26 05:00:00 102.377 kg WEIGHT 2020-11-25 06:18:00 100.95 kg WEIGHT 2020-11-24 13:00:00 99 kg WEIGHT 2020-11-24 09:45:00 101 kg WEIGHT 2020-11-24 05:00:00 100.925 kg WEIGHT 2020-11-22 19:00:00 98.3 kg HEIGHT 2020-11-21 23:36:00 165.1 cm WEIGHT 2020-11-21 23:36:00 102.2 kg Systolic blood 2019-07-28 19:08:00 121 mm[Hg] [facility] pressure Medicine Diastolic blood 2019-07-28 19:08:00 77 mm[Hg] [facility] Medicine Heart rate 2019-07-28 19:08:00 93 /min [facility] ol[facility] of Medicine Respiratory rate 2019-07-28 19:08:00 15 /min [facility] Body height 2019-07-28 19:08:00 165.1 cm [facility] Body weight 2019-07-28 19:08:00 103.42 kg [facility] ol[facility] of Medicine BMI 2019-07-28 19:08:00 37.94 kg/m2 [facility] Oxygen saturation in 2019-07-28 19:08:00 96 /min [facility] of Arterial blood by Medicine Pulse oximetry Systolic blood 2019-07-28 19:08:00 121 mm[Hg] [facility] Medicine Diastolic blood 2019-07-28 19:08:00 77 mm[Hg] [facility] Medicine Heart rate 2019-07-28 19:08:00 93 /min [facility] ol[facility] of Medicine Respiratory rate 2019-07-28 19:08:00 15 /min [facility] Body height 2019-07-28 19:08:00 165.1 cm [facility] ol[facility] of Medicine Body weight 2019-07-28 19:08:00 103.42 kg [facility] ol[facility] of Medicine BMI 2019-07-28 19:08:00 37.94 kg/m2 [facility] ol[facility] of Medicine Oxygen saturation in 2019-07-28 19:08:00 96 /min [facility] of Arterial blood by Medicine Pulse oximetry Systolic blood 2018-12-14 18:05:00 103 mm[Hg] [facility] of pressure Medicine Diastolic blood 2018-12-14 18:05:00 59 mm[Hg] [facility] pressure Medicine Heart rate 2018-12-14 18:05:00 92 /min [facility] ol[facility] of Medicine Respiratory rate 2018-12-14 18:05:00 16 /min [facility] Body height 2018-12-14 18:05:00 165.1 cm [facility] Body weight 2018-12-14 18:05:00 97.523 kg [facility] 2018-12-14 18:05:00 35.78 kg/m2 [facility] Oxygen saturation in 2018-12-14 18:05:00 95 /min [facility] Arterial blood by Medicine Pulse oximetry Systolic blood 2018-12-14 18:05:00 103 mm[Hg] [facility] pressure Medicine Diastolic blood 2018-12-14 18:05:00 59 mm[Hg] [facility] Medicine Heart rate 2018-12-14 18:05:00 92 /min [facility] ollege Medicine Respiratory rate 2018-12-14 18:05:00 16 /min [facility] Body height 2018-12-14 18:05:00 165.1 cm [facility] Body weight 2018-12-14 18:05:00 97.523 kg [facility] BMI 2018-12-14 18:05:00 35.78 kg/m2 [facility] Oxygen saturation in 2018-12-14 18:05:00 95 /min [facility] Arterial blood by Medicine Pulse oximetry Procedures Procedure Date / Time Performed Performing Clinician Sour e XR HAND 3+ VIEWS LEFT 2020-11-01 15:54:23 Shauna Ball [facility] Plan of Care Planned Activity Planned Date Details Comments Source Future Scheduled 2021-02-07 Screening for malignant [facility] 11:20:26 neoplasm of colon Medicine (procedure) [code = 318597332] Future Scheduled 2021-02-07 TETANUS SHOT (ADULT) [facility] 11:20:26 [code = TETANUS SHOT Medicin e (ADULT)] Future Scheduled 2021-02-07 Diabetic foot examination [facility] 11:20:26 (regime/therapy) [code = Med icine [id number]] Future Scheduled 2021-02-07 ANNUAL DIABETIC [facility] ollege of Test 11:20:26 RETINOPATHY SCREENING Medici ne [code = ANNUAL DIABETIC RETINOPATHY SCREENING] Future Scheduled 2021-02-07 Hepatitis C screening [facility] of Test 11:20:26 (procedure) [code = Medicine [id number]] Future Scheduled 2021-02-07 Human immunodeficiency [facility] of Test 11:20:26 virus screening Medicine (procedure) [code = [id number]] Future Scheduled 2021-02-07 MEDICARE AWV (Initial) [facility] of Test 11:20:26 [code = MEDICARE AWV Medicin e (Initial)] Future Scheduled 2021-02-07 ZOSTER VACCINE (1 of 2) [facility] of Test 11:20:26 [code = ZOSTER VACCINE (1 Me dicine of 2)] Future Scheduled 2021-02-07 FLU VACCINE > 6 MONTHS [facility] of Test 11:20:26 [code = FLU VACCINE > 6 Medi cine MONTHS] Future Scheduled 2021-02-07 BMI FOLLOW UP PLAN [code [facility] of Test 11:20:26 = BMI FOLLOW UP PLAN] Medici ne Future Scheduled 2021-02-07 Screening for malignant [facility] of Test 11:20:26 neoplasm of colon Medicine (procedure) [code = [id number]] Future Scheduled 2021-02-07 TETANUS SHOT (ADULT) [facility] of Test 11:20:26 [code = TETANUS SHOT Medicin e (ADULT)] Future Scheduled 2021-02-07 Diabetic foot examination [facility] of Test 11:20:26 (regime/therapy) [code = Med icine [id number]] Future Scheduled 2021-02-07 ANNUAL DIABETIC [facility] ollege of Test 11:20:26 RETINOPATHY SCREENING Medici ne [code = ANNUAL DIABETIC RETINOPATHY SCREENING] Future Scheduled 2021-02-07 Hepatitis C screening [facility] of Test 11:20:26 (procedure) [code = Medicine [id number]] Future Scheduled 2021-02-07 Human immunodeficiency [facility] of Test 11:20:26 virus screening Medicine (procedure) [code = [id number]] Future Scheduled 2021-02-07 MEDICARE AWV (Initial) [facility] of Test 11:20:26 [code = MEDICARE AWV Medicin e (Initial)] Future Scheduled 2021-02-07 ZOSTER VACCINE (1 of 2) [facility] of Test 11:20:26 [code = ZOSTER VACCINE (1 Me dicine of 2)] Future Scheduled 2021-02-07 FLU VACCINE > 6 MONTHS [facility] of Test 11:20:26 [code = FLU VACCINE > 6 Medi cine MONTHS] Future Scheduled 2021-02-07 BMI FOLLOW UP PLAN [code [facility] Test 11:20:26 = BMI FOLLOW UP PLAN] Medici ne Future Scheduled 2020-12-21 BMI FOLLOW UP PLAN [code [facility] of Test 14:31:03 = BMI FOLLOW UP PLAN] Medici ne Future Scheduled 2020-12-21 Screening for malignant [facility] Test 14:30:58 neoplasm of colon Medicine (procedure) [code = [id number]] Future Scheduled 2020-12-21 TETANUS SHOT (ADULT) [facility] Test 14:30:58 [code = TETANUS SHOT Medicin e (ADULT)] Future Scheduled 2020-12-21 Diabetic foot examination [facility] Test 14:30:58 (regime/therapy) [code = Med icine [id number]] Future Scheduled 2020-12-21 ANNUAL DIABETIC [facility] 14:30:58 RETINOPATHY SCREENING Medici ne [code = ANNUAL DIABETIC RETINOPATHY SCREENING] Future Scheduled 2020-12-21 Hepatitis C screening [facility] Test 14:30:58 (procedure) [code = Medicine [id number]] Future Scheduled 2020-12-21 Human immunodeficiency [facility] 14:30:58 virus screening Medicine (procedure) [code = [id number]] Future Scheduled 2020-12-21 MEDICARE AWV (Initial) [facility] Test 14:30:58 [code = MEDICARE AWV Medicin e (Initial)] Future Scheduled 2020-12-21 ZOSTER VACCINE (1 of 2) [facility] Test 14:30:58 [code = ZOSTER VACCINE (1 Me dicine of 2)] Future Scheduled 2020-12-21 FLU VACCINE > 6 MONTHS [facility] Test 14:30:58 [code = FLU VACCINE > 6 Medi cine MONTHS] Future Scheduled COLON CANCER SCREENING: [facility] COLONOSCOPY [code = COLON Me dicine CANCER SCREENING: COLONOSCOPY] Future Scheduled TETANUS SHOT (ADULT) [facility] Test [code = TETANUS SHOT Medicin e (ADULT)] Future Scheduled Diabetic foot examination [facility] of Test (regime/therapy) [code = Med icine [id number]] Future Scheduled ANNUAL DIABETIC [facility] C ollege of Test RETINOPATHY SCREENING Medici ne [code = ANNUAL DIABETIC RETINOPATHY SCREENING] Future Scheduled BMI FOLLOW UP PLAN [code [facility] of Test = BMI FOLLOW UP PLAN] Medici ne Future Scheduled HIV SCREENING [code = HIV [facility] of Test SCREENING] Medicine Future Scheduled MEDICARE AWV (Initial) [facility] of Test [code = MEDICARE AWV Medicin e (Initial)] Future Scheduled FLU VACCINE > 6 MONTHS B [facility] Test [code = FLU VACCINE > 6 Medi cine MONTHS] Future Scheduled COLON CANCER SCREENING: [facility] Test COLONOSCOPY [code = COLON Me dicine CANCER SCREENING: COLONOSCOPY] Future Scheduled MEDICARE AWV [code = [facility] of Test MEDICARE AWV] Medicine Future Scheduled TETANUS SHOT (ADULT) [facility] Test [code = TETANUS SHOT Medicin e (ADULT)] Future Scheduled Diabetic foot examination [facility] Test (regime/therapy) [code = Med icine [id number]] Future Scheduled ANNUAL DIABETIC [facility] Test RETINOPATHY SCREENING Medici ne [code = ANNUAL DIABETIC RETINOPATHY SCREENING] Future Scheduled BMI FOLLOW UP PLAN [code [facility] of Test = BMI FOLLOW UP PLAN] Medici ne Future Scheduled HIV SCREENING [code = HIV [facility] of Test SCREENING] Medicine Future Scheduled FLU VACCINE > 6 MONTHS B [facility] Test [code = FLU VACCINE > 6 Medi cine MONTHS] Encounters Start End Encounter Admission Attending Care Care Encounter Source Date/Time Date/Time Type Type Clinicians Facility Department ID 2021-03-03 Outpatient [facility] Surgery [id number] [facility] 06:20:29 [facility] 2021-03-03 Outpatient [facility] Surgery [id number] [facility] 04:50:43 [facility] 2021-03-03 Inpatient JACQUES, [facility] Surgery [id number] [facility] 03:37:33 DISHA 2021-03-03 Outpatient [facility] Surgery [id number] [facility] 03:34:33 [facility] 2020-11-21 Inpatient ER [facility] [id number] [facility] 23:26:00 [facility] 2020-11-01 Outpatient [facility] [id number] [place] 10:36:56 Health 2020-08-01 Inpatient Adia, [facility] [id number] [facility] 09:30:00 Vitaly [id number] [facility] 2020-07-31 Inpatient EL Adia, [facility] ENDO [id number] [facility] 10:00:00 Vitaly [id number] [facility] 2021-03-26 2021-03-26 Outpatient [facility] [id number] SLE 00:00:00 00:00:00 2021-02-24 2021-03-21 Inpatient ER FAROOQ, [facility] Surgery [id number] SLE 02:17:00 13:36:00 FRANKIE 2021-03-19 2021-03-19 Outpatient EL [facility] [id number] SLE 00:00:00 00:00:00 2021-02-24 2021-02-24 Outpatient [facility] [id number] [place] [address] 02:17:00 23:59:00 [facility] 2021-01-24 2021-01-24 Office HEBER Jimenez [id number] [place] [address] 15:06:24 16:25:15 Visit Chris Hughes AMBULATOR 350.1.13.21 College Y 0.2.7.2.686 [id number] [facility] papa 825 e 2021-01-07 2021-01-07 Outpatient HEBER DONNELLY [facility] [id number] [facility] 11:13:04 14:54:13 INDERJIT [facility] 2021-01-07 2021-01-07 Outpatient [facility] [id number] [facility] 11:12:28 14:47:52 [facility] 2021-01-03 2021-01-03 Emergency ER [facility] Emergency [id number] [facility] 16:56:00 16:56:00 2020-12-28 2020-12-28 Outpatient [facility] [id number] [facility] 05:31:00 23:59:00 [facility] 2020-12-28 2020-12-28 Outpatient [facility] [id number] [facility] 00:00:00 05:30:00 [facility] 2020-12-24 2020-12-24 Outpatient EL [facility] [id number] SLE 00:00:00 00:00:00 2020-12-17 2020-12-17 Office Andrzej [facility] [id number] [facility] 16:45:00 17:15:00 Visit Indrejit AMBULATOR 350.1.13.21 [facility] Y 0.2.7.2.686 [id number] [facility] 825 e 2020-12-17 2020-12-17 Emergency ER [facility] Emergency [id number] SLE 14:54:00 14:54:00 2020-12-17 2020-12-17 Outpatient JIGNESH, [facility] [id number] SLE 00:00:00 00:00:00 NIMISHA 2020-12-17 2020-12-17 Outpatient JIGNESH, [facility] [id number] SLE 00:00:00 00:00:00 NIMISHA 2020-11-23 2020-11-23 Outpatient [facility] [id number] [facility] 00:00:00 23:59:00 Home Medicin e 2020-11-07 2020-11-07 Refill Dietrich, UTP [facility] [id number] 00:00:00 00:00:00 [facility] [id number] [place] 9.2.7.2.686 [facility] [id number] 1 2020-11-07 2020-11-07 Refill Dietrich, Miladis [facility] 1.2.840. 114 [id number] [place] 00:00:00 00:00:00 Dietrich, Miladis [facility] 350.1.13.58 Health [place]ONMAN 9.2.7.2.686 SMI [id number] 1 2020-11-01 2020-11-01 Office Quinn, BERNABE [facility] 1.2.840.114 [id number] 09:40:07 12:10:45 Visit Shauna [facility] 350.1.13.58 [place] 9.2.7.2.686 SMI [id number] 1 2020-11-01 2020-11-01 Office Quinn, BERNABE [facility] 1.2.840.114 [id number] [place] 09:40:07 12:10:45 Visit Shauna [facility] 350.1.13.58 [facility] 9.2.7.2.686 [facility] [id number] 1 2019-07-28 2019-07-28 Office HEBER Lipscomb 1.2.840.114 [id number] [facility] 11:24:51 16:32:38 Visit Umu AMBULATOR 350.1.13.21 College Y 0.2.7.2.686 of [id number] Medi papa 370 e 2019-07-28 2019-07-28 Office HEBER Lipscomb 1.2.840.114 [id number] 11:24:51 16:32:38 Visit Umu AMBULATOR 350.1.13.21 Y 0.2.7.2.686 [id number] 370 2018-12-14 2018-12-14 Office LipscombHEBER cantu 1.2.840.114 [id number] [facility] 11:15:58 13:39:25 Visit Umu AMBULATOR 350.1.13.21 College Y 0.2.7.2.686 of [id number] [facility] papa 315 e 2018-12-14 2018-12-14 Office HEBER Lipscomb 1.2.840.114 [id number] 11:15:58 13:39:25 Visit Umu AMBULATOR 350.1.13.21 Y 0.2.7.2.686 [id number] Results Test Description Test Time Test Comments Results Result Comments Source AFB CULTURE + SMEAR (NON-SPUTUM) 2021-04-26 14:55:54 Test Item Value Reference Range Interpretation Comme nts CULTURE (BEAKER) (test code = 1095) No acid-fast bacilli isolated i n 42 days AFB SMEAR (BEAKER) (test code = 994) No acid fast bacilli seen AFB CULTURE + SMEAR (NON-SPUTUM)2021-04-26 14:55:54 Test Item Value Reference Range Interpretation Comments CULTURE (BEAKER) (test No acid-fast bacilli code = 1095) isolated in 42 days AFB SMEAR (BEAKER) No acid fast bacilli (test code = 994) seen AFB CULTURE + SMEAR (NON-SPUTUM)2021-04-22 12:05:15 Test Item Value Reference Range Interpretation Comments CULTURE (BEAKER) (test No acid-fast bacilli code = 1095) isolated in 42 days AFB SMEAR (BEAKER) No acid fast bacilli (test code = 994) seen FUNGUS CULTURE + [id number] 15:59:25 Test Item Value Reference Range Interpretation Comments CULTURE (BEAKER) (test No fungus isolated in code = 1095) 28 days FUNGUS SMEAR (BEAKER) No fungi seen (test code = 1406) FUNGUS CULTURE + [id number] 15:59:25 Test Item Value Reference Range Interpretation Comments CULTURE (BEAKER) (test No fungus isolated in code = 1095) 28 days FUNGUS SMEAR (BEAKER) No fungi seen (test code = 1406) TISSUE [id number] 10:58:22Surgical Pathology Report Case: [id number] Authorizing Provider: Chris Jimenez DPM Collected: 03/12/2021 10:35 AM Ordering Location: [facility] PERIOPERATIVE Received: 03/12/2021 11:03 AM SERVICES Pathologist: Anthony Adams MD Specimen: Metatarsal, Left, Metatarsal Left Foot PART A LEFT FOOT METATARSALS, DEBRIDEMENT:PORTIONS OF BONE WITH CHRONIC OSTEOMYELITIS. Signing Pathologist Direct Phone Line: [phone] signed by Anthony Adams MD on 03/29/2021 at 10:58 [id number], [id number] surgical woundMetatarsal, leftReceived fresh labeled the patient's name, accession number and "left foot metatarsal" are 5 villalba, trabeculated bone fragments with adherent soft tissue ranging from 1.1-2.0 cm in greatest dimension. The specimen is entirely submitted in A1-A4 following decalcification.THAIS Olmstead, JAZ (ASCP)[facility], Department of Pathology, [address] [place] [address] 50[address], [facility] adi, Department of Pathology, [address] [place] [address] 228[address], [facility], Department of Pathology, [address] [place] [address] 25990, XFHPHP CULTURE + SMEAR 2021-03-26 01:45:40 Test Item Value Reference Range Interpretation Comments CULTURE (BEAKER) (test No fungus isolated in code = 1095) 28 days FUNGUS SMEAR (BEAKER) No fungi seen (test code = 1406) POCT-GLUCOSE [id number] 13:06:28 Test Item Value Reference Range Interpretation Comments POC-GLUCOSE METER 130 mg/dL 70-110 H : TESTED A T [facility] 6720 (BEAKER) (test code = [facility], 1538) 25638: Air Conditioning Installer/Techni glenis ID = [id number] for OJ NARDA, JAYE POCT-GLUCOSE [id number] 13:06:26 Test Item Value Reference Range Interpretation Comments POC-GLUCOSE METER 105 mg/dL 70-110 : TESTED A T [facility] 6720 (BEAKER) (test code = [facility], 1538) 33933: Air Conditioning Installer/Techni glenis ID = [id number] for OJ NARDA, JAYE [id number] 06:17:33 Test Item Value Reference Range Interpretation Comments FERRITIN (BEAKER) (test code = 1491.23 ng/mL 5.00-275.00 H 361) Air Conditioning Installer ID - KEVIN MVITAMIN B12 AND [id number] 06:17:33 Test Item Value Reference Range Interpretation Comments VITAMIN B12 (BEAKER) 506 pg/mL 213-816 (test code = 774) FOLATE (BEAKER) 2.80 ng/mL See_Comment L [Automated message] (test code = 362) The system which generated this result transmitted ref erence range: >=7.00. The reference range was not used to interpr et this result as normal/abnormal . Air Conditioning Installer ID - KEVIN MBASIC METABOLIC [id number] 06:07:45 Test Item Value Reference Range Interpretation Comments SODIUM (BEAKER) 138 meq/L 136-145 (test code = 381) POTASSIUM (BEAKER) 4.7 meq/L 3.5-5.1 (test code = 379) CHLORIDE (BEAKER) 102 meq/L 98-107 (test code = 382) CO2 (BEAKER) (test 30 meq/L 22-29 H code = 355) BLOOD UREA NITROGEN 12 mg/dL 7-21 (BEAKER) (test code = 354) CREATININE (BEAKER) 4.09 mg/dL 0.57-1.25 H (test code = 358) GLUCOSE RANDOM 95 mg/dL 70-105 (BEAKER) (test code = 652) CALCIUM (BEAKER) 8.9 mg/dL 8.4-10.2 (test code = 697) EGFR (BEAKER) (test 15 mL/min/1.73 ESTIMA FRANKLIN GFR IS code = 1092) sq m NOT ACCURATE CREATININE CLEARANCE IN PREDICTING GLOMERULAR FILTRATION RATE . ESTIMATED GFR I S NOT APPLICABLE FOR DIALYSIS PATIEN TS. Air Conditioning Installer ID - KEVIN JOYCELYN, TIBC, % SAT. (WITHOUT FERRITIN)2021-03-21 05:58:24 Test Item Value Reference Range Interpretation Comments IRON (BEAKER) (test code = 547) 48.0 ug/dL 40.0-160.0 TOTAL IRON BINDING CAPACITY 149 ug/dL 250-450 L (BEAKER) (test code = 769) IRON % SATURATION (2) (BEAKER) 32 % 20-55 (test code = 2590) Air Conditioning Installer ID - KEVIN MCBC (HEMOGRAM ONLY)2021-03-21 05:17:50 Test Item Value Reference Range Interpretation Comments WHITE BLOOD CELL COUNT (BEAKER) 7.9 K/ L 3.5-10.5 (test code = 775) RED BLOOD CELL COUNT (BEAKER) 2.60 M/ L 4.63-6.08 L (test code = 761) HEMOGLOBIN (BEAKER) (test code = 7.3 GM/DL 13.7-17.5 L 410) HEMATOCRIT (BEAKER) (test code = 24.3 % 40.1-51.0 L 411) MEAN CORPUSCULAR VOLUME (BEAKER) 93.5 fL 79.0-92.2 H (test code = 753) MEAN CORPUSCULAR HEMOGLOBIN 28.1 pg 25.7-32.2 (BEAKER) (test code = 751) MEAN CORPUSCULAR HEMOGLOBIN CONC 30.0 GM/DL 32.3-36.5 L (BEAKER) (test code = 752) RED CELL DISTRIBUTION WIDTH 14.3 % 11.6-14.4 (BEAKER) (test code = 412) PLATELET COUNT (BEAKER) (test 411 K/CU MM 150-450 code = 756) MEAN PLATELET VOLUME (BEAKER) 8.9 fL 9.4-12.4 L (test code = 754) NUCLEATED RED BLOOD CELLS 0 /100 WBC 0-0 (BEAKER) (test code = 413) POCT-GLUCOSE [id number] 22:42:00 Test Item Value Reference Range Interpretation Comments POC-GLUCOSE METER 116 mg/dL 70-110 H : TESTED A T [facility] 6720 (BEAKER) (test code = [facility], [facility]) 78122: Air Conditioning Installer/Techni glenis ID = [id number] for TO BIAS, JOHN POCT-GLUCOSE [id number] 22:41:59 Test Item Value Reference Range Interpretation Comments POC-GLUCOSE METER 68 mg/dL 70-110 L : TESTED A T [facility] 6720 (BEAKER) (test code = [facility], [facility]8) 69612: Air Conditioning Installer/Techni glenis ID = [id number] for YOKASTA , JOHN POCT-GLUCOSE [id number] 22:41:58 Test Item Value Reference Range Interpretation Comments POC-GLUCOSE METER 63 mg/dL 70-110 L : TESTED A T [facility] 6720 (BEAKER) (test code = [facility], [facility]8) 32416: Air Conditioning Installer/Techni glenis ID = [id number] for YOKASTA , JOHN POCT-GLUCOSE [id number] 21:56:24 Test Item Value Reference Range Interpretation Comments POC-GLUCOSE METER 58 mg/dL 70-110 L : TESTED A T [facility] 6720 (BEAKER) (test code = [facility], [facility]8) 64305: Air Conditioning Installer/Techni glenis ID = [id number] for Vinod fabiola Sona POCT-GLUCOSE [id number] 12:31:59 Test Item Value Reference Range Interpretation Comments POC-GLUCOSE METER 110 mg/dL 70-110 : TESTED A T [facility] 6720 (BEAKER) (test code = [facility], [facility]8) 77742: Air Conditioning Installer/Techni glenis ID = [id number] for Sa ntos, Tejal BASIC METABOLIC [id number] 10:16:59 Test Item Value Reference Range Interpretation Comments SODIUM (BEAKER) 136 meq/L 136-145 (test code = 381) POTASSIUM (BEAKER) 5.0 meq/L 3.5-5.1 (test code = 379) CHLORIDE (BEAKER) 100 meq/L 98-107 (test code = 382) CO2 (BEAKER) (test 26 meq/L 22-29 code = 355) BLOOD UREA NITROGEN 22 mg/dL 7-21 H (BEAKER) (test code = 354) CREATININE (BEAKER) 5.86 mg/dL 0.57-1.25 H (test code = 358) GLUCOSE RANDOM 98 mg/dL 70-105 (BEAKER) (test code = 652) CALCIUM (BEAKER) 9.1 mg/dL 8.4-10.2 (test code = 697) EGFR (BEAKER) (test 10 mL/min/1.73 ESTIMA FRANKLIN GFR IS code = 1092) sq m NOT ACCURATE CREATININE CLEARANCE IN PREDICTING GLOMERULAR FILTRATION RATE . ESTIMATED GFR I S NOT APPLICABLE FOR DIALYSIS PATIEN TS. Air Conditioning Installer ID - KEVIN MPOCT-GLUCOSE [id number] 07:57:31 Test Item Value Reference Range Interpretation Comments POC-GLUCOSE METER 77 mg/dL 70-110 : TESTED A T [facility] 6720 (BEAKER) (test code = [facility] [place], 1538) 34884: Air Conditioning Installer/Techni glenis ID = [id number] for Tejal Mckinnon CBC (HEMOGRAM ONLY)2021-03-20 05:40:12 Test Item Value Reference Range Interpretation Comments WHITE BLOOD CELL COUNT (BEAKER) 8.8 K/ L 3.5-10.5 (test code = 775) RED BLOOD CELL COUNT (BEAKER) 2.54 M/ L 4.63-6.08 L (test code = 761) HEMOGLOBIN (BEAKER) (test code = 7.0 GM/DL 13.7-17.5 L 410) HEMATOCRIT (BEAKER) (test code = 23.7 % 40.1-51.0 L 411) MEAN CORPUSCULAR VOLUME (BEAKER) 93.3 fL 79.0-92.2 H (test code = 753) MEAN CORPUSCULAR HEMOGLOBIN 27.6 pg 25.7-32.2 (BEAKER) (test code = 751) MEAN CORPUSCULAR HEMOGLOBIN CONC 29.5 GM/DL 32.3-36.5 L (BEAKER) (test code = 752) RED CELL DISTRIBUTION WIDTH 14.2 % 11.6-14.4 (BEAKER) (test code = 412) PLATELET COUNT (BEAKER) (test 412 K/CU MM 150-450 code = 756) MEAN PLATELET VOLUME (BEAKER) 9.0 fL 9.4-12.4 L (test code = 754) NUCLEATED RED BLOOD CELLS 0 /100 WBC 0-0 (BEAKER) (test code = 413) POCT-GLUCOSE [id number] 00:38:45 Test Item Value Reference Range Interpretation Comments POC-GLUCOSE METER 167 mg/dL 70-110 H : TESTED A T [facility] 6720 (BEAKER) (test code = [facility], 153) 04797: Air Conditioning Installer/Techni glenis ID = [id number] for PE MARK, GEORGI POCT-GLUCOSE [id number] 00:29:44 Test Item Value Reference Range Interpretation Comments POC-GLUCOSE METER 174 mg/dL 70-110 H : TESTED A T [facility] 6720 (BEAKER) (test code = [facility], 1538) 64168: Air Conditioning Installer/Techni glenis ID = [id number] for PE RALES, GEORGI POCT-GLUCOSE [id number] 17:35:25 Test Item Value Reference Range Interpretation Comments POC-GLUCOSE METER 125 mg/dL 70-110 H : TESTED A T [facility] 6720 (BEAKER) (test code = [facility], 1538) 88809: Air Conditioning Installer/Techni glenis ID = [id number] for MA RTIN, CHIANNA POCT-GLUCOSE [id number] 12:37:01 Test Item Value Reference Range Interpretation Comments POC-GLUCOSE METER 101 mg/dL 70-110 : TESTED A T [facility] 6720 (BEAKER) (test code = [facility], 1538) 64901: Air Conditioning Installer/Techni glenis ID = [id number] for MA RTIN, CHIANNA BASIC METABOLIC [id number] 08:42:41 Test Item Value Reference Range Interpretation Comments SODIUM (BEAKER) 134 meq/L 136-145 L (test code = 381) POTASSIUM (BEAKER) 4.6 meq/L 3.5-5.1 (test code = 379) CHLORIDE (BEAKER) 100 meq/L 98-107 (test code = 382) CO2 (BEAKER) (test 26 meq/L 22-29 code = 355) BLOOD UREA NITROGEN 16 mg/dL 7-21 (BEAKER) (test code = 354) CREATININE (BEAKER) 4.68 mg/dL 0.57-1.25 H (test code = 358) GLUCOSE RANDOM 80 mg/dL 70-105 (BEAKER) (test code = 652) CALCIUM (BEAKER) 8.7 mg/dL 8.4-10.2 (test code = 697) EGFR (BEAKER) (test 13 mL/min/1.73 ESTIMA FRANKLIN GFR IS code = 1092) sq m NOT ACCURATE CREATININE CLEARANCE IN PREDICTING GLOMERULAR FILTRATION RATE . ESTIMATED GFR I S NOT APPLICABLE FOR DIALYSIS PATIEN TS. Air Conditioning Installer ID - PIAYA LPOCT-GLUCOSE [id number] 08:39:03 Test Item Value Reference Range Interpretation Comments POC-GLUCOSE METER 66 mg/dL 70-110 L : Notified RN/MD: TESTED (BEAKER) (test code = AT [facility] [address] [place] 165158) [place] [address] 30: Air Conditioning Installer/Techni glenis ID = [id number] for JOSHUA HOYT CBC (HEMOGRAM ONLY)2021-03-19 05:39:39 Test Item Value Reference Range Interpretation Comments WHITE BLOOD CELL COUNT (BEAKER) 10.6 K/ L 3.5-10.5 H (test code = 775) RED BLOOD CELL COUNT (BEAKER) 2.75 M/ L 4.63-6.08 L (test code = 761) HEMOGLOBIN (BEAKER) (test code = 7.6 GM/DL 13.7-17.5 L 410) HEMATOCRIT (BEAKER) (test code = 25.9 % 40.1-51.0 L 411) MEAN CORPUSCULAR VOLUME (BEAKER) 94.2 fL 79.0-92.2 H (test code = 753) MEAN CORPUSCULAR HEMOGLOBIN 27.6 pg 25.7-32.2 (BEAKER) (test code = 751) MEAN CORPUSCULAR HEMOGLOBIN CONC 29.3 GM/DL 32.3-36.5 L (BEAKER) (test code = 752) RED CELL DISTRIBUTION WIDTH 14.2 % 11.6-14.4 (BEAKER) (test code = 412) PLATELET COUNT (BEAKER) (test 443 K/CU MM 150-450 code = 756) MEAN PLATELET VOLUME (BEAKER) 8.8 fL 9.4-12.4 L (test code = 754) NUCLEATED RED BLOOD CELLS 0 /100 WBC 0-0 (BEAKER) (test code = 413) POCT-GLUCOSE [id number] 21:39:08 Test Item Value Reference Range Interpretation Comments POC-GLUCOSE METER 130 mg/dL 70-110 H : TESTED A T [facility] 6720 (BEAKER) (test code [facility], = 1538) 18719: Air Conditioning Installer/Techni glenis ID = [id number] for Billie Puckett POCT-GLUCOSE [id number] 17:14:40 Test Item Value Reference Range Interpretation Comments POC-GLUCOSE METER 127 mg/dL 70-110 H : TESTED A T [facility] 6720 (BEAKER) (test code = [facility], 1538) 45932: Air Conditioning Installer/Techni glenis ID = [id number] for HU NTER, HIWITHA POCT-GLUCOSE [id number] 13:39:18 Test Item Value Reference Range Interpretation Comments POC-GLUCOSE METER 127 mg/dL 70-110 H : TESTED A T [facility] 6720 (BEAKER) (test code = [facility], 1538) 15757: Air Conditioning Installer/Techni glenis ID = [id number] for HU NTER, HIWITHA POCT-GLUCOSE [id number] 10:24:36 Test Item Value Reference Range Interpretation Comments POC-GLUCOSE METER 78 mg/dL 70-110 : TESTED A T [facility] 6720 (BEAKER) (test code = [facility], 1538) 96799: Air Conditioning Installer/Techni glenis ID = [id number] for LARKIN ER, HIWITHA SARS-COV2/RT-PCR ([facility])2021-03-18 10:04:14 Test Item Value Reference Range Interpretation Comments SARS-COV2/RT-PCR (test Negative Not Detected, Negative, code = 5563217) See external report for linked test SARS-COV-2 PERFORMING LAB [facility] ARTURO (test code = 8493631) Negative result for this test determines that SARS-CoV-2 RNA was not present in the specimen above the Limit of Detection (LOD). However, Negative results do not preclude SARS-CoV-2 infection and should not be used as the sole basis for treatment or patient management decisions. Negative results mustbe combined with clinical observations, patient history, and epidemiological information. A false negative result may occur if a specimen is improperly collected, transported or handled. A false negative result should be considered if patient's recent exposures or clinical presentation indicate that COVID-19 (SARS-CoV-2) is likely and diagnostic tests for other causes of illness are negative. Re-testing should be considered in cases of suspected false negatives.The limit of detection for this assay is 800 copies/mL.This SARS CoV-2 test is a real-time RT-PCR test intended for the qualitative detection of nucleic acid from SARS-CoV-2 in a nasopharyngeal swab specimen collected from individuals susp ected of COVID-19 by their healthcare provider.This test has not been Food and Drug Administration (FDA) cleared or approved. This is a modified version of an approved Emergency Use Authorization (EUA) and is in the process of review by the FDA. Once authorized by the FDA, the issued EUA will be effective until the declaration that circumstances exist justifying the authorization of the emergency use of in vitro diagnostic tests for detection and/or diagnosis of COVID-19 is terminated under Section 564(b)(2) of the Act or the EUA is revoked under Section 564(g) of the Act.Fact Sheet for Healthcare Providers:https://www.[employer]/sites/default/files/product/documents/Fact_Shee r_ZL_Dkhmhxhxz_Xqxe_AOET-KaJ-7.pdfFact Sheet for Healthcare Patients:https://www.[employer].com/sites/default/files/product/ documents/Vbio_Ntooj_Irhuoghf_Yqeu_XXFJ-LmV-1.pdfPerforming Laboratory:[facility], [place] [address]OGBJZ METABOLIC PANEL 2021-03-18 06:51:57 Test Item Value Reference Range Interpretation Comments SODIUM (BEAKER) 131 meq/L 136-145 L (test code = 381) POTASSIUM (BEAKER) 4.9 meq/L 3.5-5.1 (test code = 379) CHLORIDE (BEAKER) 95 meq/L 98-107 L (test code = 382) CO2 (BEAKER) (test 27 meq/L 22-29 code = 355) BLOOD UREA NITROGEN 27 mg/dL 7-21 H (BEAKER) (test code = 354) CREATININE (BEAKER) 6.51 mg/dL 0.57-1.25 H (test code = 358) GLUCOSE RANDOM 73 mg/dL 70-105 (BEAKER) (test code = 652) CALCIUM (BEAKER) 8.7 mg/dL 8.4-10.2 (test code = 697) EGFR (BEAKER) (test 9 mL/min/1.73 ESTIMAT ED GFR IS code = 1092) sq m NOT ACCURATE CREATININE CLEARANCE IN PREDICTING GLOMERULAR FILTRATION RATE . ESTIMATED GFR I S NOT APPLICABLE FOR DIALYSIS PATIEN TS. Air Conditioning Installer ID - [id number] (HEMOGRAM ONLY)2021-03-18 05:07:35 Test Item Value Reference Range Interpretation Comments WHITE BLOOD CELL COUNT (BEAKER) 9.9 K/ L 3.5-10.5 (test code = 775) RED BLOOD CELL COUNT (BEAKER) 2.60 M/ L 4.63-6.08 L (test code = 761) HEMOGLOBIN (BEAKER) (test code = 7.2 GM/DL 13.7-17.5 L 410) HEMATOCRIT (BEAKER) (test code = 24.7 % 40.1-51.0 L 411) MEAN CORPUSCULAR VOLUME (BEAKER) 95.0 fL 79.0-92.2 H (test code = 753) MEAN CORPUSCULAR HEMOGLOBIN 27.7 pg 25.7-32.2 (BEAKER) (test code = 751) MEAN CORPUSCULAR HEMOGLOBIN CONC 29.1 GM/DL 32.3-36.5 L (BEAKER) (test code = 752) RED CELL DISTRIBUTION WIDTH 13.8 % 11.6-14.4 (BEAKER) (test code = 412) PLATELET COUNT (BEAKER) (test 440 K/CU MM 150-450 code = 756) MEAN PLATELET VOLUME (BEAKER) 8.8 fL 9.4-12.4 L (test code = 754) NUCLEATED RED BLOOD CELLS 0 /100 WBC 0-0 (BEAKER) (test code = 413) POCT-GLUCOSE [id number] 21:43:24 Test Item Value Reference Range Interpretation Comments POC-GLUCOSE METER 118 mg/dL 70-110 H : TESTED A T [facility] 6720 (BEAKER) (test code = [facility], 1538) [id number]: Air Conditioning Installer/Techni glenis ID = [id number] for Do Gopal hamptonn POCT-GLUCOSE [id number] 16:11:44 Test Item Value Reference Range Interpretation Comments POC-GLUCOSE METER 125 mg/dL 70-110 H : TESTED A T [facility] 6720 (BEAKER) (test code = [facility], 1538) [id number]: Air Conditioning Installer/Techni glenis ID = [id number] for Do Emily hamptonlon POCT-GLUCOSE [id number] 08:31:47 Test Item Value Reference Range Interpretation Comments POC-GLUCOSE METER 110 mg/dL 70-110 : TESTED A T [facility] 6720 (BEAKER) (test code = [facility] [facility], 1538) 84502: Air Conditioning Installer/Techni glenis ID = [id number] for Do Gopal hamptonn BASIC METABOLIC [id number] 03:34:02 Test Item Value Reference Range Interpretation Comments SODIUM (BEAKER) 132 meq/L 136-145 L (test code = 381) POTASSIUM (BEAKER) 4.6 meq/L 3.5-5.1 (test code = 379) CHLORIDE (BEAKER) 95 meq/L 98-107 L (test code = 382) CO2 (BEAKER) (test 29 meq/L 22-29 code = 355) BLOOD UREA NITROGEN 19 mg/dL 7-21 (BEAKER) (test code = 354) CREATININE (BEAKER) 5.39 mg/dL 0.57-1.25 H (test code = 358) GLUCOSE RANDOM 119 mg/dL 70-105 H (BEAKER) (test code = 652) CALCIUM (BEAKER) 8.9 mg/dL 8.4-10.2 (test code = 697) EGFR (BEAKER) (test 11 mL/min/1.73 ESTIMA FRANKLIN GFR IS code = 1092) sq m NOT ACCURATE CREATININE CLEARANCE IN PREDICTING GLOMERULAR FILTRATION RATE . ESTIMATED GFR I S NOT APPLICABLE FOR DIALYSIS PATIEN TS. Air Conditioning Installer ID - PEGGY CANBC (HEMOGRAM ONLY)2021-03-17 03:07:49 Test Item Value Reference Range Interpretation Comments WHITE BLOOD CELL COUNT (BEAKER) 8.1 K/ L 3.5-10.5 (test code = 775) RED BLOOD CELL COUNT (BEAKER) 2.69 M/ L 4.63-6.08 L (test code = 761) HEMOGLOBIN (BEAKER) (test code = 7.4 GM/DL 13.7-17.5 L 410) HEMATOCRIT (BEAKER) (test code = 24.5 % 40.1-51.0 L 411) MEAN CORPUSCULAR VOLUME (BEAKER) 91.1 fL 79.0-92.2 (test code = 753) MEAN CORPUSCULAR HEMOGLOBIN 27.5 pg 25.7-32.2 (BEAKER) (test code = 751) MEAN CORPUSCULAR HEMOGLOBIN CONC 30.2 GM/DL 32.3-36.5 L (BEAKER) (test code = 752) RED CELL DISTRIBUTION WIDTH 14.1 % 11.6-14.4 (BEAKER) (test code = 412) PLATELET COUNT (BEAKER) (test 492 K/CU MM 150-450 H code = 756) MEAN PLATELET VOLUME (BEAKER) 8.9 fL 9.4-12.4 L (test code = 754) NUCLEATED RED BLOOD CELLS 0 /100 WBC 0-0 (BEAKER) (test code = 413) POCT-GLUCOSE [id number] 21:31:21 Test Item Value Reference Range Interpretation Comments POC-GLUCOSE METER 152 mg/dL 70-110 H : TESTED A T [facility] 6720 (BEAKER) (test code = [facility], 1538) 78494: Air Conditioning Installer/Techni glenis ID = [id number] for DA ALLISON CHAPA POCT-GLUCOSE [id number] 17:08:15 Test Item Value Reference Range Interpretation Comments POC-GLUCOSE METER 149 mg/dL 70-110 H : TESTED A T [facility] 6720 (BEAKER) (test code = [facility], 153) 07155: Air Conditioning Installer/Techni glenis ID = [id number] for Fl yoon (pca2), Ethel RAD, CHEST, 1 VIEW, NON [id number] 16:19:00Reason for exam:->PICC PlacementShould this be performed at the bedside?->Yes [facility] CENTERName: MATTHEW BLACKMAN : 1965 Sex: MFINAL REPORT INDICATION: PICC Placement COMPARISON: 11/09/2018 PAULA HNIQUE: Single frontal view of the chest. FINDINGS: Lungs and pleura: Small left effusion and left basilar airspace disease.Heart and mediastinum: Normal heart size. Unremarkable mediastinal contours.Osseous structures: No acute abnormality.Other: PICC tip overlies the atriocaval junction. IMPRESSION: Small left effusion and left basilar airspace disease, compatible with mild volume overload. Superimposed infection may be excluded clinically. Signed: Vicki Gaspar Verified Date/Time: 03/16/2021 16:19:25 POCT-GLUCOSE METER 2021-03-16 12:28:28 Test Item Value Reference Range Interpretation Comments POC-GLUCOSE METER 133 mg/dL 70-110 H : [facility]ED [facility] T [facility] ([employer] (test code = [facility] [facility], 1538) 74386: Air Conditioning Installer/Techni glenis ID = [id number] for Reno nettles (pca2)Ethel POCT-GLUCOSE [id number] 07:47:30 Test Item Value Reference Range Interpretation Comments POC-GLUCOSE METER 92 mg/dL 70-110 : TESTED A T [facility] 6720 ([employer] (test code = [facility], 1538) 20781: Air Conditioning Installer/Techni glenis ID = [id number] for Marquis Black POCT-GLUCOSE [id number] 22:56:32 Test Item Value Reference Range Interpretation Comments POC-GLUCOSE METER 85 mg/dL 70-110 : TESTED A T [facility] 6720 (BEAKER) (test code = BRENDA Prieto [facility], 1538) 47995: Air Conditioning Installer/Techni glenis ID = [id number] for Gamal Vickers BLOOD [id number] 18:01:20 Test Item Value Reference Range Interpretation Comments CULTURE (BEAKER) (test No growth in 5 days code = 1095) POCT-GLUCOSE [id number] 16:58:07 Test Item Value Reference Range Interpretation Comments POC-GLUCOSE METER 114 mg/dL 70-110 H : TESTED A T [facility] 6720 (BEAKER) (test code [facility], = 1538) 16017: Air Conditioning Installer/Techni glenis ID = [id number] for Maldonado geller (pca2)August POCT-GLUCOSE [id number] 11:58:05 Test Item Value Reference Range Interpretation Comments POC-GLUCOSE METER 104 mg/dL 70-110 : TESTED A T [facility] 6720 (BEAKER) (test code [facility], = 1538) 14841: Air Conditioning Installer/Techni glenis ID = [id number] for Maldonado geller (pca2)August BASIC METABOLIC [id number] 07:42:37 Test Item Value Reference Range Interpretation Comments SODIUM (BEAKER) 137 meq/L 136-145 (test code = 381) POTASSIUM (BEAKER) 4.5 meq/L 3.5-5.1 (test code = 379) CHLORIDE (BEAKER) 94 meq/L 98-107 L (test code = 382) CO2 (BEAKER) (test 32 meq/L 22-29 H code = 355) BLOOD UREA NITROGEN 21 mg/dL 7-21 (BEAKER) (test code = 354) CREATININE (BEAKER) 6.24 mg/dL 0.57-1.25 H (test code = 358) GLUCOSE RANDOM 90 mg/dL 70-105 (BEAKER) (test code = 652) CALCIUM (BEAKER) 9.7 mg/dL 8.4-10.2 (test code = 697) EGFR (BEAKER) (test 9 mL/min/1.73 ESTIMAT ED GFR IS code = 1092) sq m NOT ACCURATE CREATININE CLEARANCE IN PREDICTING GLOMERULAR FILTRATION RATE . ESTIMATED GFR I S NOT APPLICABLE FOR DIALYSIS PATIEN TS. Air Conditioning Installer ID - EMERSONPOCT-GLUCOSE [id number] 07:01:09 Test Item Value Reference Range Interpretation Comments POC-GLUCOSE METER 95 mg/dL 70-110 : TESTED A T [facility] 6720 (BEAKER) (test code = BRENDA Prieto [facility], 1538) 56411: Air Conditioning Installer/Techni glenis ID = [id number] for Billie Puckett CBC (HEMOGRAM ONLY)2021-03-15 06:46:16 Test Item Value Reference Range Interpretation Comments WHITE BLOOD CELL COUNT (BEAKER) 9.8 K/ L 3.5-10.5 (test code = 775) RED BLOOD CELL COUNT (BEAKER) 2.84 M/ L 4.63-6.08 L (test code = 761) HEMOGLOBIN (BEAKER) (test code = 7.8 GM/DL 13.7-17.5 L 410) HEMATOCRIT (BEAKER) (test code = 26.8 % 40.1-51.0 L 411) MEAN CORPUSCULAR VOLUME (BEAKER) 94.4 fL 79.0-92.2 H (test code = 753) MEAN CORPUSCULAR HEMOGLOBIN 27.5 pg 25.7-32.2 (BEAKER) (test code = 751) MEAN CORPUSCULAR HEMOGLOBIN CONC 29.1 GM/DL 32.3-36.5 L (BEAKER) (test code = 752) RED CELL DISTRIBUTION WIDTH 14.1 % 11.6-14.4 (BEAKER) (test code = 412) PLATELET COUNT (BEAKER) (test 517 K/CU MM 150-450 H code = 756) MEAN PLATELET VOLUME (BEAKER) 9.0 fL 9.4-12.4 L (test code = 754) NUCLEATED RED BLOOD CELLS 0 /100 WBC 0-0 (BEAKER) (test code = 413) POCT-GLUCOSE [id number] 21:37:31 Test Item Value Reference Range Interpretation Comments POC-GLUCOSE METER 139 mg/dL 70-110 H : TESTED A T [facility] 6720 (BEAKER) (test code [facility], = 1538) 14646: Air Conditioning Installer/Techni glenis ID = [id number] for Billie Puckett POCT-GLUCOSE [id number] 17:09:03 Test Item Value Reference Range Interpretation Comments POC-GLUCOSE METER 116 mg/dL 70-110 H : TESTED A T [facility] 6720 (BEAKER) (test code = [facility], 1538) 51658: Air Conditioning Installer/Techni glenis ID = [id number] for AMI PATTERSONWITHA POCT-GLUCOSE [id number] 11:53:15 Test Item Value Reference Range Interpretation Comments POC-GLUCOSE METER 178 mg/dL 70-110 H : TESTED A T [facility] 6720 (BEAKER) (test code = [facility], 1538) 09135: Air Conditioning Installer/Techni glenis ID = [id number] for SERGO NTFLORA, HIWITHA BASIC METABOLIC [id number] 08:11:14 Test Item Value Reference Range Interpretation Comments SODIUM (BEAKER) 138 meq/L 136-145 (test code = 381) POTASSIUM (BEAKER) 4.3 meq/L 3.5-5.1 (test code = 379) CHLORIDE (BEAKER) 95 meq/L 98-107 L (test code = 382) CO2 (BEAKER) (test 34 meq/L 22-29 H code = 355) BLOOD UREA NITROGEN 15 mg/dL 7-21 (BEAKER) (test code = 354) CREATININE (BEAKER) 5.02 mg/dL 0.57-1.25 H (test code = 358) GLUCOSE RANDOM 127 mg/dL 70-105 H (BEAKER) (test code = 652) CALCIUM (BEAKER) 9.7 mg/dL 8.4-10.2 (test code = 697) EGFR (BEAKER) (test 12 mL/min/1.73 ESTIMA FRANKLIN GFR IS code = 1092) sq m NOT ACCURATE CREATININE CLEARANCE IN PREDICTING GLOMERULAR FILTRATION RATE . ESTIMATED GFR I S NOT APPLICABLE FOR DIALYSIS PATIEN TS. Air Conditioning Installer ID - KEVIN MCBC (HEMOGRAM ONLY)2021-03-14 07:57:41 Test Item Value Reference Range Interpretation Comments WHITE BLOOD CELL COUNT (BEAKER) 10.3 K/ L 3.5-10.5 (test code = 775) RED BLOOD CELL COUNT (BEAKER) 2.94 M/ L 4.63-6.08 L (test code = 761) HEMOGLOBIN (BEAKER) (test code = 8.2 GM/DL 13.7-17.5 L 410) HEMATOCRIT (BEAKER) (test code = 27.1 % 40.1-51.0 L 411) MEAN CORPUSCULAR VOLUME (BEAKER) 92.2 fL 79.0-92.2 (test code = 753) MEAN CORPUSCULAR HEMOGLOBIN 27.9 pg 25.7-32.2 (BEAKER) (test code = 751) MEAN CORPUSCULAR HEMOGLOBIN CONC 30.3 GM/DL 32.3-36.5 L (BEAKER) (test code = 752) RED CELL DISTRIBUTION WIDTH 14.0 % 11.6-14.4 (BEAKER) (test code = 412) PLATELET COUNT (BEAKER) (test 575 K/CU MM 150-450 H code = 756) MEAN PLATELET VOLUME (BEAKER) 8.7 fL 9.4-12.4 L (test code = 754) NUCLEATED RED BLOOD CELLS 0 /100 WBC 0-0 (BEAKER) (test code = 413) POCT-GLUCOSE [id number] 07:06:11 Test Item Value Reference Range Interpretation Comments POC-GLUCOSE METER 134 mg/dL 70-110 H : TESTED A T [facility] 6720 (BEAKER) (test code = [facility], 153) 59478: Air Conditioning Installer/Techni glenis ID = [id number] for LENNY PATTERSON POCT-GLUCOSE [id number] 21:39:34 Test Item Value Reference Range Interpretation Comments POC-GLUCOSE METER 96 mg/dL 70-110 : TESTED A T [facility] 6720 (BEAKER) (test code = [facility], 153) 17586: Air Conditioning Installer/Techni glenis ID = [id number] for BIMAL GlenysSOPHIEYL BASIC METABOLIC [id number] 13:31:18 Test Item Value Reference Range Interpretation Comments SODIUM (BEAKER) 134 meq/L 136-145 L (test code = 381) POTASSIUM (BEAKER) 4.5 meq/L 3.5-5.1 (test code = 379) CHLORIDE (BEAKER) 94 meq/L 98-107 L (test code = 382) CO2 (BEAKER) (test 33 meq/L 22-29 H code = 355) BLOOD UREA NITROGEN 25 mg/dL 7-21 H (BEAKER) (test code = 354) CREATININE (BEAKER) 5.94 mg/dL 0.57-1.25 H (test code = 358) GLUCOSE RANDOM 94 mg/dL 70-105 (BEAKER) (test code = 652) CALCIUM (BEAKER) 8.6 mg/dL 8.4-10.2 (test code = 697) EGFR (BEAKER) (test 10 mL/min/1.73 ESTIMA FRANKLIN GFR IS code = 1092) sq m NOT ACCURATE CREATININE CLEARANCE IN PREDICTING GLOMERULAR FILTRATION RATE . ESTIMATED GFR I S NOT APPLICABLE FOR DIALYSIS PATIEN TS. Air Conditioning Installer ID - [id number] (HEMOGRAM ONLY)2021-03-13 13:01:52 Test Item Value Reference Range Interpretation Comments WHITE BLOOD CELL COUNT (BEAKER) 7.8 K/ L 3.5-10.5 (test code = 775) RED BLOOD CELL COUNT (BEAKER) 2.57 M/ L 4.63-6.08 L (test code = 761) HEMOGLOBIN (BEAKER) (test code = 7.1 GM/DL 13.7-17.5 L 410) HEMATOCRIT (BEAKER) (test code = 23.7 % 40.1-51.0 L 411) MEAN CORPUSCULAR VOLUME (BEAKER) 92.2 fL 79.0-92.2 (test code = 753) MEAN CORPUSCULAR HEMOGLOBIN 27.6 pg 25.7-32.2 (BEAKER) (test code = 751) MEAN CORPUSCULAR HEMOGLOBIN CONC 30.0 GM/DL 32.3-36.5 L (BEAKER) (test code = 752) RED CELL DISTRIBUTION WIDTH 14.1 % 11.6-14.4 (BEAKER) (test code = 412) PLATELET COUNT (BEAKER) (test 489 K/CU MM 150-450 H code = 756) MEAN PLATELET VOLUME (BEAKER) 8.9 fL 9.4-12.4 L (test code = 754) NUCLEATED RED BLOOD CELLS 0 /100 WBC 0-0 (BEAKER) (test code = 413) POCT-GLUCOSE [id number] 11:49:59 Test Item Value Reference Range Interpretation Comments POC-GLUCOSE METER 107 mg/dL 70-110 : TESTED A T [facility] 6720 ([facility]) (test code = [facility], 153) 90847: Air Conditioning Installer/Techni glenis ID = [id number] for HU NTER, HIWITHA POCT-GLUCOSE [id number] 07:10:23 Test Item Value Reference Range Interpretation Comments POC-GLUCOSE METER 120 mg/dL 70-110 H : TESTED A T [facility] 6720 ([facility]) (test code = [facility], 153) 48900: Air Conditioning Installer/Techni glenis ID = [id number] for HU NTER, HIWITHA POCT-GLUCOSE [id number] 21:07:28 Test Item Value Reference Range Interpretation Comments POC-GLUCOSE METER 142 mg/dL 70-110 H : TESTED A T [facility] 6720 ([facility]) (test code = [facility], 153) 00105: Air Conditioning Installer/Techni glenis ID = [id number] for GEORGI SPARKS POCT-GLUCOSE [id number] 15:44:47 Test Item Value Reference Range Interpretation Comments POC-GLUCOSE METER 103 mg/dL 70-110 : Notified RN/MD: (ALEYDA) (test code = TESTED AT [place] [address] 1538) [facility], 39197: Air Conditioning Installer/Techni glenis ID = [id number] for Aureliano cornejo (contract), Koko adorno RAD, FOOT, MIN 3 VIEWS, [id number] 12:45:00Reason for exam:->[facility] 1965 Sex: MFINAL REPORT Radiograph of the left foot Reason for exam: post op Comparison: March 05, 2021 Discussion: Status post transmetatarsal amputation of all five rays. Resection margin is sharp. No acute fracture, or dislocation. A vascular graft is noted in the lower leg. There is suspected gas at the soft tissue stump, and in the lateral aspect of midfoot and hindfoot, correlate clinically for infection. Signed: Dakotah Vega Verified Date/Time: 03/12/2021 12:45:50 Reading Location: [facility] C013X Ortho Consult Reading Room POCT-GLUCOSE [id number] 11:31:28 Test Item Value Reference Range Interpretation Comments POC-GLUCOSE METER 86 mg/dL 70-110 : TESTED A T [facility] 6720 ([facility]) (test code = [facility], 1538) 41965: Air Conditioning Installer/Techni glenis ID = [id number] for TAYL OR, TEIKA POCT-GLUCOSE [id number] 10:24:39 Test Item Value Reference Range Interpretation Comments POC-GLUCOSE METER 102 mg/dL 70-110 : Notified RN/MD: ([facility]) (test code = TESTED AT [facility] 6720 1538) [facility], 12172: Air Conditioning Installer/Techni glenis ID = [id number] for CA MPOS, RAJ POCT-GLUCOSE [id number] 07:38:53 Test Item Value Reference Range Interpretation Comments POC-GLUCOSE METER 103 mg/dL 70-110 : TESTED A T [facility] 6720 ([facility]) (test code = [facility], 1538) 81818: Air Conditioning Installer/Techni glenis ID = [id number] for Aureliano itsada (contract), Koko ert BASIC METABOLIC [id number] 06:53:37 Test Item Value Reference Range Interpretation Comments SODIUM (BEAKER) 136 meq/L 136-145 (test code = 381) POTASSIUM (BEAKER) 4.4 meq/L 3.5-5.1 (test code = 379) CHLORIDE (BEAKER) 95 meq/L 98-107 L (test code = 382) CO2 (BEAKER) (test 32 meq/L 22-29 H code = 355) BLOOD UREA NITROGEN 20 mg/dL 7-21 (BEAKER) (test code = 354) CREATININE (BEAKER) 5.21 mg/dL 0.57-1.25 H (test code = 358) GLUCOSE RANDOM 109 mg/dL 70-105 H (BEAKER) (test code = 652) CALCIUM (BEAKER) 8.9 mg/dL 8.4-10.2 (test code = 697) EGFR (BEAKER) (test 12 mL/min/1.73 ESTIMA FRANKLIN GFR IS code = 1092) sq m NOT ACCURATE CREATININE CLEARANCE IN PREDICTING GLOMERULAR FILTRATION RATE . ESTIMATED GFR I S NOT APPLICABLE FOR DIALYSIS PATIEN TS. Air Conditioning Installer ID - KEVIN MCBC (HEMOGRAM ONLY)2021-03-12 06:37:53 Test Item Value Reference Range Interpretation Comments WHITE BLOOD CELL COUNT (BEAKER) 10.2 K/ L 3.5-10.5 (test code = 775) RED BLOOD CELL COUNT (BEAKER) 3.13 M/ L 4.63-6.08 L (test code = 761) HEMOGLOBIN (BEAKER) (test code = 8.7 GM/DL 13.7-17.5 L 410) HEMATOCRIT (BEAKER) (test code = 29.1 % 40.1-51.0 L 411) MEAN CORPUSCULAR VOLUME (BEAKER) 93.0 fL 79.0-92.2 H (test code = 753) MEAN CORPUSCULAR HEMOGLOBIN 27.8 pg 25.7-32.2 (BEAKER) (test code = 751) MEAN CORPUSCULAR HEMOGLOBIN CONC 29.9 GM/DL 32.3-36.5 L (BEAKER) (test code = 752) RED CELL DISTRIBUTION WIDTH 14.3 % 11.6-14.4 (BEAKER) (test code = 412) PLATELET COUNT (BEAKER) (test 513 K/CU MM 150-450 H code = 756) MEAN PLATELET VOLUME (BEAKER) 9.1 fL 9.4-12.4 L (test code = 754) NUCLEATED RED BLOOD CELLS 0 /100 WBC 0-0 (BEAKER) (test code = 413) POCT-GLUCOSE [id number] 21:19:34 Test Item Value Reference Range Interpretation Comments POC-GLUCOSE METER 115 mg/dL 70-110 H : TESTED A T [facility] 6720 (BEAKER) (test code = BRENDA Prieto [facility], 1538) 49805: Air Conditioning Installer/Techni glenis ID = [id number] for DELIA REBOLLEDO SE POCT-GLUCOSE [id number] 17:11:51 Test Item Value Reference Range Interpretation Comments POC-GLUCOSE METER 99 mg/dL 70-110 : [facility] (test code = BRENDA Prieto [facility], 1538) 06923: Air Conditioning Installer/Techni glenis ID = [id number] for LARKIN ER, HIWITHA POCT-GLUCOSE [id number] 11:53:50 Test Item Value Reference Range Interpretation Comments POC-GLUCOSE METER 118 mg/dL 70-110 H : TESTED A T [facility] 6720 (RACQUELAKER) (test code = BRENDA Prieto [facility], 1538) 41532: Air Conditioning Installer/Techni glenis ID = [id number] for SERGO NTER, HIWITHA SARS-COV2/RT-PCR ([facility])2021-03-11 09:43:08 Test Item Value Reference Range Interpretation Comments SARS-COV2/RT-PCR (test Negative Not Detected, Negative, code = 8609193) See external report for linked test SARS-COV-2 PERFORMING LAB [facility] (test code = 8210999) Negative result for this test determines that SARS-CoV-2 RNA was not present in the specimen above the Limit of Detection (LOD). However, Negative results do not preclude SARS-CoV-2 infection and should not be used as the sole basis for treatment or patient management decisions. Negative results mustbe combined with clinical observations, patient history, and epidemiological information. A false negative result may occur if a specimen is improperly collected, transported or handled. A false negative result should be considered if patient's recent exposures or clinical presentation indicate that COVID-19 (SARS-CoV-2) is likely and diagnostic tests for other causes of illness are negative. Re-testing should be considered in cases of suspected false negatives.The limit of detection for this assay is 800 copies/mL.This SARS CoV-2 test is a real-time RT-PCR test intended for the qualitative detection of nucleic acid from SARS-CoV-2 in a nasopharyngeal swab specimen collected from individuals susp ected of COVID-19 by their healthcare provider.This test has not been Food and Drug Administration (FDA) cleared or approved. This is a modified version of an approved Emergency Use Authorization (EUA) and is in the process of review by the FDA. Once authorized by the FDA, the issued EUA will be effective until the declaration that circumstances exist justifying the authorization of the emergency use of in vitro diagnostic tests for detection and/or diagnosis of COVID-19 is terminated under Section 564(b)(2) of the Act or the EUA is revoked under Section 564(g) of the Act.Fact Sheet for Healthcare Providers:https://www.[employer]/sites/default/files/product/documents/Fact_Shee p_XC_Iicbapzja_Mfdj_NOOZ-LyU-7.pdfFact Sheet for Healthcare Patients:https://www.[employer]/sites/default/files/product/ documents/Yjso_Ygiyc_Qnmsdtsb_Vifg_APID-HmZ-8.pdfPerforming Laboratory:[facility], [place] [address]RVBPU METABOLIC PANEL 2021-03-11 07:54:31 Test Item Value Reference Range Interpretation Comments SODIUM (BEAKER) 130 meq/L 136-145 L (test code = 381) POTASSIUM (BEAKER) 5.1 meq/L 3.5-5.1 (test code = 379) CHLORIDE (BEAKER) 95 meq/L 98-107 L (test code = 382) CO2 (BEAKER) (test 26 meq/L 22-29 code = 355) BLOOD UREA NITROGEN 34 mg/dL 7-21 H (BEAKER) (test code = 354) CREATININE (BEAKER) 6.66 mg/dL 0.57-1.25 H (test code = 358) GLUCOSE RANDOM 105 mg/dL 70-105 (BEAKER) (test code = 652) CALCIUM (BEAKER) 9.2 mg/dL 8.4-10.2 (test code = 697) EGFR (BEAKER) (test 9 mL/min/1.73 ESTIMAT ED GFR IS code = 1092) sq m NOT ACCURATE CREATININE CLEARANCE IN PREDICTING GLOMERULAR FILTRATION RATE . ESTIMATED GFR I S NOT APPLICABLE FOR DIALYSIS PATIEN TS. Air Conditioning Installer ID - DBPOCT-GLUCOSE [id number] 07:35:32 Test Item Value Reference Range Interpretation Comments POC-GLUCOSE METER 106 mg/dL 70-110 : TESTED A T [facility] 6720 (BEAKER) (test code = [facility] [employer] [facility], 153) 99146: Air Conditioning Installer/Techni glenis ID = [id number] for QUINTON HUMPHREY CBC (HEMOGRAM ONLY)2021-03-11 06:57:52 Test Item Value Reference Range Interpretation Comments WHITE BLOOD CELL COUNT (BEAKER) 11.2 K/ L 3.5-10.5 H (test code = 775) RED BLOOD CELL COUNT (BEAKER) 2.69 M/ L 4.63-6.08 L (test code = 761) HEMOGLOBIN (BEAKER) (test code = 7.5 GM/DL 13.7-17.5 L 410) HEMATOCRIT (BEAKER) (test code = 25.3 % 40.1-51.0 L 411) MEAN CORPUSCULAR VOLUME (BEAKER) 94.1 fL 79.0-92.2 H (test code = 753) MEAN CORPUSCULAR HEMOGLOBIN 27.9 pg 25.7-32.2 (BEAKER) (test code = 751) MEAN CORPUSCULAR HEMOGLOBIN CONC 29.6 GM/DL 32.3-36.5 L (BEAKER) (test code = 752) RED CELL DISTRIBUTION WIDTH 14.4 % 11.6-14.4 (BEAKER) (test code = 412) PLATELET COUNT (BEAKER) (test 469 K/CU MM 150-450 H code = 756) MEAN PLATELET VOLUME (BEAKER) 8.9 fL 9.4-12.4 L (test code = 754) NUCLEATED RED BLOOD CELLS 0 /100 WBC 0-0 (BEAKER) (test code = 413) POCT-GLUCOSE [id number] 21:34:03 Test Item Value Reference Range Interpretation Comments POC-GLUCOSE METER 176 mg/dL 70-110 H : TESTED A T [facility] 6720 (BEAKER) (test code = [employer] [facility], 153) [id number]: Air Conditioning Installer/Techni glenis ID = [id number] for DELIA REBOLLEDO SE POCT-GLUCOSE [id number] 17:00:57 Test Item Value Reference Range Interpretation Comments POC-GLUCOSE METER 129 mg/dL 70-110 H : TESTED A T [facility] 6720 (BEAKER) (test code = [employer] [facility], 1538) [id number]: Air Conditioning Installer/Techni glenis ID = [id number] for JORGE L CRUZ CBC W/PLT COUNT & AUTO [id number] 16:32:06 Test Item Value Reference Range Interpretation Comments WHITE BLOOD CELL COUNT (BEAKER) 11.2 K/ L 3.5-10.5 H (test code = 775) RED BLOOD CELL COUNT (BEAKER) 2.63 M/ L 4.63-6.08 L (test code = 761) HEMOGLOBIN (BEAKER) (test code = 7.3 GM/DL 13.7-17.5 L 410) HEMATOCRIT (BEAKER) (test code = 23.6 % 40.1-51.0 L 411) MEAN CORPUSCULAR VOLUME (BEAKER) 89.7 fL 79.0-92.2 (test code = 753) MEAN CORPUSCULAR HEMOGLOBIN 27.8 pg 25.7-32.2 (BEAKER) (test code = 751) MEAN CORPUSCULAR HEMOGLOBIN CONC 30.9 GM/DL 32.3-36.5 L (BEAKER) (test code = 752) RED CELL DISTRIBUTION WIDTH 14.3 % 11.6-14.4 (BEAKER) (test code = 412) PLATELET COUNT (BEAKER) (test 478 K/CU MM 150-450 H code = 756) MEAN PLATELET VOLUME (BEAKER) 9.2 fL 9.4-12.4 L (test code = 754) NUCLEATED RED BLOOD CELLS 0 /100 WBC 0-0 (BEAKER) (test code = 413) NEUTROPHILS RELATIVE PERCENT 72 % (BEAKER) (test code = 429) LYMPHOCYTES RELATIVE PERCENT 13 % (BEAKER) (test code = 430) MONOCYTES RELATIVE PERCENT 10 % (BEAKER) (test code = 431) EOSINOPHILS RELATIVE PERCENT 3 % (BEAKER) (test code = 432) BASOPHILS RELATIVE PERCENT 1 % (BEAKER) (test code = 437) NEUTROPHILS ABSOLUTE COUNT 8.10 K/ L 1.78-5.38 H (BEAKER) (test code = 670) LYMPHOCYTES ABSOLUTE COUNT 1.43 K/ L 1.32-3.57 (BEAKER) (test code = 414) MONOCYTES ABSOLUTE COUNT (BEAKER) 1.13 K/ L 0.30-0.82 H (test code = 415) EOSINOPHILS ABSOLUTE COUNT 0.38 K/ L 0.04-0.54 (BEAKER) (test code = 416) BASOPHILS ABSOLUTE COUNT (BEAKER) 0.12 K/ L 0.01-0.08 H (test code = 417) IMMATURE GRANULOCYTES-RELATIVE 1 % 0-1 PERCENT (BEAKER) (test code = 2801) POCT-GLUCOSE [id number] 11:45:20 Test Item Value Reference Range Interpretation Comments POC-GLUCOSE METER 147 mg/dL 70-110 H : TESTED A T [facility] 6720 (BEAKER) (test code = [facility], 1538) [id number]: Air Conditioning Installer/Techni glenis ID = [id number] for JORGE L CRUZ POCT-GLUCOSE [id number] 07:38:29 Test Item Value Reference Range Interpretation Comments POC-GLUCOSE METER 132 mg/dL 70-110 H : TESTED A T [facility] 6720 (BEAKER) (test code = [facility], 1538) 99952: Air Conditioning Installer/Techni glenis ID = [id number] for QUINTON HUMPHREY BASIC METABOLIC [id number] 06:23:26 Test Item Value Reference Range Interpretation Comments SODIUM (BEAKER) 133 meq/L 136-145 L (test code = 381) POTASSIUM (BEAKER) 4.8 meq/L 3.5-5.1 (test code = 379) CHLORIDE (BEAKER) 97 meq/L 98-107 L (test code = 382) CO2 (BEAKER) (test 26 meq/L 22-29 code = 355) BLOOD UREA NITROGEN 25 mg/dL 7-21 H (BEAKER) (test code = 354) CREATININE (BEAKER) 5.53 mg/dL 0.57-1.25 H (test code = 358) GLUCOSE RANDOM 148 mg/dL 70-105 H (BEAKER) (test code = 652) CALCIUM (BEAKER) 8.9 mg/dL 8.4-10.2 (test code = 697) EGFR (BEAKER) (test 11 mL/min/1.73 ESTIMA FRANKLIN GFR IS code = 1092) sq m NOT ACCURATE CREATININE CLEARANCE IN PREDICTING GLOMERULAR FILTRATION RATE . ESTIMATED GFR I S NOT APPLICABLE FOR DIALYSIS PATIEN TS. Air Conditioning Installer ID Karan ZHANG [facility] (HEMOGRAM ONLY)2021-03-10 06:23:17 Test Item Value Reference Range Interpretation Comments WHITE BLOOD CELL COUNT (BEAKER) 12.1 K/ L 3.5-10.5 H (test code = 775) RED BLOOD CELL COUNT (BEAKER) 2.69 M/ L 4.63-6.08 L (test code = 761) HEMOGLOBIN (BEAKER) (test code = 7.3 GM/DL 13.7-17.5 L 410) HEMATOCRIT (BEAKER) (test code = 25.0 % 40.1-51.0 L 411) MEAN CORPUSCULAR VOLUME (BEAKER) 92.9 fL 79.0-92.2 H (test code = 753) MEAN CORPUSCULAR HEMOGLOBIN 27.1 pg 25.7-32.2 (BEAKER) (test code = 751) MEAN CORPUSCULAR HEMOGLOBIN CONC 29.2 GM/DL 32.3-36.5 L (BEAKER) (test code = 752) RED CELL DISTRIBUTION WIDTH 14.5 % 11.6-14.4 H (BEAKER) (test code = 412) PLATELET COUNT (BEAKER) (test 468 K/CU MM 150-450 H code = 756) MEAN PLATELET VOLUME (BEAKER) 9.4 fL 9.4-12.4 (test code = 754) NUCLEATED RED BLOOD CELLS 0 /100 WBC 0-0 (BEAKER) (test code = 413) POCT-GLUCOSE [id number] 16:57:54 Test Item Value Reference Range Interpretation Comments POC-GLUCOSE METER 159 mg/dL 70-110 H : TESTED A T [facility] 6720 (BEAKER) (test code = [facility], 153) [id number]: Air Conditioning Installer/Techni glenis ID = [id number] for Do minguez, Marquis POCT-GLUCOSE [id number] 11:38:47 Test Item Value Reference Range Interpretation Comments POC-GLUCOSE METER 115 mg/dL 70-110 H : TESTED A T [facility] 6720 (BEAKER) (test code = [facility], 1538) [id number]: Air Conditioning Installer/Techni glenis ID = [id number] for Do minguez, Marquis BASIC METABOLIC [id number] 10:30:24 Test Item Value Reference Range Interpretation Comments SODIUM (BEAKER) 135 meq/L 136-145 L (test code = 381) POTASSIUM (BEAKER) 4.5 meq/L 3.5-5.1 (test code = 379) CHLORIDE (BEAKER) 97 meq/L 98-107 L (test code = 382) CO2 (BEAKER) (test 27 meq/L 22-29 code = 355) BLOOD UREA NITROGEN 19 mg/dL 7-21 (BEAKER) (test code = 354) CREATININE (BEAKER) 4.39 mg/dL 0.57-1.25 H (test code = 358) GLUCOSE RANDOM 97 mg/dL 70-105 (BEAKER) (test code = 652) CALCIUM (BEAKER) 9.3 mg/dL 8.4-10.2 (test code = 697) EGFR (BEAKER) (test 14 mL/min/1.73 ESTIMA FRANKLIN GFR IS code = 1092) sq m NOT ACCURATE CREATININE CLEARANCE IN PREDICTING GLOMERULAR FILTRATION RATE . ESTIMATED GFR I S NOT APPLICABLE FOR DIALYSIS PATIEN TS. Air Conditioning Installer ID - [facility] (HEMOGRAM ONLY)2021-03-09 10:08:14 Test Item Value Reference Range Interpretation Comments WHITE BLOOD CELL COUNT (BEAKER) 12.0 K/ L 3.5-10.5 H (test code = 775) RED BLOOD CELL COUNT (BEAKER) 3.17 M/ L 4.63-6.08 L (test code = 761) HEMOGLOBIN (BEAKER) (test code = 8.8 GM/DL 13.7-17.5 L 410) HEMATOCRIT (BEAKER) (test code = 29.9 % 40.1-51.0 L 411) MEAN CORPUSCULAR VOLUME (BEAKER) 94.3 fL 79.0-92.2 H (test code = 753) MEAN CORPUSCULAR HEMOGLOBIN 27.8 pg 25.7-32.2 (BEAKER) (test code = 751) MEAN CORPUSCULAR HEMOGLOBIN CONC 29.4 GM/DL 32.3-36.5 L (BEAKER) (test code = 752) RED CELL DISTRIBUTION WIDTH 14.2 % 11.6-14.4 (BEAKER) (test code = 412) PLATELET COUNT (BEAKER) (test 497 K/CU MM 150-450 H code = 756) MEAN PLATELET VOLUME (BEAKER) 8.8 fL 9.4-12.4 L (test code = 754) NUCLEATED RED BLOOD CELLS 0 /100 WBC 0-0 (BEAKER) (test code = 413) SURGICALLY OBTAINED CULTURE + GRAM [id number] 08:34:41 Test Item Value Reference Interpretation Comments Range CULTURE (BEAKER) A 4+ Same org anism (test code = 1095) has been isolated from cultures(s ) of the same bod y site and collection date . Repeat identification and susceptibility testing perform ed only after consultation wi the clinical microbiology laboratory.Refe r to previous culture ofEscherichia coliESBL Positi ve CULTURE (BEAKER) ENTEROBACTER A 4+ Enteroba cter (test code = 1095) CLOACAE COMPLEX cloaca e complex Amikacin (test code = S 1) Aztreonam (test code S = 32) Cefepime (test code = S 51) Cefoxitin (test code R = 68) Ceftazidime (test S code = 27) Ceftriaxone (test S code = 52) Ertapenem (test code S = 38) Gentamicin (test code S = 18) Levofloxacin (test S code = 22) Meropenem (test code S = 34) Nitrofurantoin (test S code = 23) Piperacillin + S Tazobactam (test code = 29) Tetracycline (test S code = 2) Tobramycin (test code S = 25) Trimethoprim + S Sulfamethoxazole (test code = 47) CULTURE (BEAKER) MYROIDES SPECIES A 4+ Myro ides (test code = 1095) species Amikacin (test code = See_Comment S [Auto mated 1) message] The system which generated this result transmit franklin reference range : Susceptible 0-1 6 , Resistant <0 or >16 . The reference range was not used to interpret this result as normal/abnormal . Aztreonam (test code See_Comment R [Autom ated = 32) message] The system which generated this result transmit franklin reference range : Susceptible 0-8 , Resistant <0 or >8 . The reference range was not u sed to interpret th is result as normal/abnormal . Cefepime (test code = See_Comment R [Auto mated 51) message] The system which generated this result transmit franklin reference range : Susceptible 0-8 , Resistant <0 or >8 . The reference range was not u sed to interpret th is result as normal/abnormal . Ceftazidime (test See_Comment R [Automate d code = 27) message] The system which generated this result transmit franklin reference range : Susceptible 0-8 , Resistant <0 or >8 . The reference range was not u sed to interpret th is result as normal/abnormal . Ciprofloxacin (test See_Comment R [Automa franklin code = 7) message] The system which generated this result transmit franklin reference range : Susceptible 0-1 , Resistant <0 or >1 . The reference range was not u sed to interpret th is result as normal/abnormal . Gentamicin (test code See_Comment R [Auto mated = 18) message] The system which generated this result transmit franklin reference range : Susceptible 0-4 , Resistant <0 or >4 . The reference range was not u sed to interpret th is result as normal/abnormal . Imipenem (test code = See_Comment S [Auto mated 19) message] The system which generated this result transmit franklin reference range : Susceptible 0-4 , Resistant <0 or >4 . The reference range was not u sed to interpret th is result as normal/abnormal . Levofloxacin (test See_Comment S [Automat ed code = 22) message] The system which generated this result transmit franklin reference range : Susceptible 0-2 , Resistant <0 or >2 . The reference range was not u sed to interpret th is result as normal/abnormal . Meropenem (test code See_Comment S [Autom ated = 34) message] The system which generated this result transmit franklin reference range : Susceptible 0-4 , Resistant <0 or >4 . The reference range was not u sed to interpret th is result as normal/abnormal . Piperacillin + See_Comment S [Automated Tazobactam (test code messag e] The = 29) system which generated this result transmit franklin reference range : Susceptible 0-1 6 , Resistant <0 or >16 . The reference range was not used to interpret this result as normal/abnormal . Tobramycin (test code See_Comment R [Auto mated = 25) message] The system which generated this result transmit franklin reference range : Susceptible 0-4 , Resistant <0 or >4 . The reference range was not u sed to interpret th is result as normal/abnormal . Trimethoprim + See_Comment S [Automated Sulfamethoxazole message] Th e (test code = 47) system whic h generated this result transmit franklin reference range : Susceptible 0-4 0 , Resistant <0 or >40 . The reference range was not used to interpret this result as normal/abnormal . GRAM STAIN RESULT <1+ White blood (BEAKER) (test code = cells seen 1123) GRAM STAIN RESULT 2+ gram negative (BEAKER) (test code = rods 368004) POCT-GLUCOSE [id number] 07:51:24 Test Item Value Reference Range Interpretation Comments POC-GLUCOSE METER 62 mg/dL 70-110 L : TESTED A T [facility] 6720 (BEAKER) (test code = [facility], 1538) 12824: Air Conditioning Installer/Techni glenis ID = [id number] for Marquis Black POCT-GLUCOSE [id number] 21:39:03 Test Item Value Reference Range Interpretation Comments POC-GLUCOSE METER 112 mg/dL 70-110 H : TESTED A T [facility] 6720 (BEAKER) (test code [facility], = 1538) 66696: Air Conditioning Installer/Techni glenis ID = [id number] for Kam (co ntract)Agueda POCT-GLUCOSE [id number] 17:12:43 Test Item Value Reference Range Interpretation Comments POC-GLUCOSE METER 127 mg/dL 70-110 H : TESTED A T [facility] 6720 (BEAKER) (test code = [facility], 1538) 55562: Air Conditioning Installer/Techni glenis ID = [id number] for Dave Anderson TISSUE [id number] 14:43:58Surgical Pathology Report Case: [id number] Authorizing Provider: Chris Jimenez DPM Collected: 03/05/2021 08:30 AM Ordering Location: [facility] Received: 03/05/2021 08:49 AM SERVICES Pathologist: Thanh Gilbert MD Specimen: Soft Tissue, Other, Left Foot tissue A. SOFT TISSUE, LEFTFOOT, DEBRIDEMENT: - ACUTE OSTEOMYELITIS - ULCERATION AND NECROSIS OF SOFT TISSUE - VIABLESKIN AND SOFT TISSUE/BONE MARGINS Signing Pathologist Direct Phone Line: [phone] signed by Thanh Gilbert MD on 03/08/2021 at 2:43 [id number] 1, [id number] surgical woundFoot, leftA. Received fresh labeled with the patient's name, medical record number and "softtissue, other" is a transmetatarsal amputation consisting of five transected bones surfaced by an 8.7 x 6.7 x 1.4 cm ovoid, disrupted, villalba-healy to pink, partially necrotic skin. There is significant skin slippage which is at the skin margin. 40% of the subcutaneous tissue is necrotic. The necrotic subcutaneous tissue abut the proximal end of the bones. The bone at the margin is yellow, homogenousand trabeculated. Automobile Spring Repairer sections are submitted.Section code:A1: Metatarsal margin #1, en face, following decalcification A2: Metatarsal margin #1, en face, following decalcificationA3: Metatarsal margin #1, en face, following decalcificationA4: Metatarsal margin #1, en face, following decalcificationA5: Metatarsal margin #1, en face, following decalcificationA6: Automobile Spring Repairer of bone to necrotic soft tissueA7: Automobile Spring Repairer of skin with slippage and subcutaneous necrosis to skin margin (b lusada), perpendicular sectionChelsea ROLANDO Stone, PA (ASCP)cmPerformed.TISSUE EXAM 2021-03-08 13:18:31Surgical Pathology Report Case: [id number] Authorizing Provider: Chris Jimenez DPM Collected: 2021 09:51 AM Ordering Location: [facility] Received: 2021 11:06 AM SERVICES Pathologist: Christy Gilliam MD Specimens: A) - Foot, Left B) -Metatarsal, Left, LEFT METATARSIL BONE BIOPSY A. LEFT FOOT, TRANSME TATARSAL AMPUTATION: - ACUTE AND CHRONIC OSTEOMYELITIS - BONE MARGIN AT 3RD DIGIT IS POSITIVEFOR FOCAL ACUTE INFLAMMATION - ABSCESS AND GANGRENOUS NECROSIS OF SKIN AND SOFT TISSUE, PRESENT AT SUBMITTED MARGINSB. LEFT METATARSAL, NOT OTHERWISE SPECIFIED EXCISION: - NEGATIVE FOR ACUTE INFL AMMATION Signing Pathologist Direct Phone Line: [phone] signed by Christy Gilliam MD on 03/08/2021 at 1:18 [id number], [id number] x 2Nonhealing surgical woundA. Left foot; B. Left metatarsal boneA. Received fresh labeled with the patient's name, medical record number and "foot, left" is a 9.5 x 8.4 x 4.1 cm left transmetatarsal amputation with five attached digits all withtan slightly thickened nail. The overall skin is villalba-brown, wrinkled, displaying skin slippage on both the plantar and dorsal aspect. There is a 4.4 x 4.4 x 1.5 cm villalba-brown ulcerative, leathery bcydde836% encompassing digits 2, 3, and 4 and 50% encompassing digit 5. Digits 3 and 4 are slightly shrunken and mummified. The lesion abuts the skin and soft tissue margin on both the plantar and dorsal aspect. The great toe is 20% covered by two villalba-brown ulcerative lesions measuring 0.7 x 0.5 x 0.2 cm and 2.1 x 1.4 x 0.3 cm respectively. The larger lesion is 0.5 cm from the skin and soft tissue margin.The underlying affected bone is villalba-yellow to villalba-red, centrally firm and peripherally softened, andtrabeculated. All five bone margins are smooth and hemorrhagic. The skin and soft tissue margins appear viable. Automobile Spring Repairer sections are submitted. Ink code: Blue: skin and soft tissue marginSectioncode:A1: lesion underlying affected bone of digit 2, following decalcification A2: digit 1, bone margin, following decalcification A3: digit 2, bone margin, following decalcification A4: digit 3, bone margin, following decalcification A5: digit 4, bone margin, following decalcification A6: digit 5, bone margin, following decalcification A7: skin and soft tissue margin to lesion at digit 4, dorsal aspectA8: skin and soft tissue margin to lesion at great toe/digit 1A9: skin and soft tissue margin to lesion at plantar aspect. B. Received fresh labeled with the patient's name, medical record number and "metatarsal, left" is a 0.7 cm in length and 1.5 cm in diameter unoriented portion of bone with minimal attached villalba-pink fibroadipose tissue. The bone margin is smooth and hemorrhagic. The underlyingbone is villalba-pink, firm and trabeculated. No masses or lesions are identified. The specimen is entirely submitted. Ink code: Blue: bone marginSection code: B1: bone margin, following decalcificationB2:remaining half of specimen. BRINA/pl [facility]formedB[facility], [facility] of [facility]ology, [address] [place] [id number], [facility], [address] [place] [address], [facility], [facility] of Pathology, [address] [place] [address], JXNS-GLUCOSE [id number] 12:36:57 Test Item Value Reference Range Interpretation Comments POC-GLUCOSE METER 106 mg/dL 70-110 : TESTED A T [facility] 6720 (BEAKER) (test code = BRENDA Prieto [facility], 1538) 72788: Air Conditioning Installer/Techni glenis ID = [id number] for [place] nettles (pca2)Ethel OBTAINED CULTURE + GRAM [id number] 09:05:22 Test Item Value Reference Range Interpretation Comments CULTURE (BEAKER) (test ESCHERICHIA COLI A < 1+ Escherichia code = 1095) ESBL coli ESBL Amikacin (test code = R 1) Ampicillin + Sulbactam R (test code = 6) Aztreonam (test code = R 32) Cefepime (test code = R 51) Cefoxitin (test code = R 68) Ceftazidime (test code R = 27) Ceftriaxone (test code R = 52) Ertapenem (test code = S 38) Gentamicin (test code R = 18) Levofloxacin (test R code = 22) Meropenem (test code = S 34) Nitrofurantoin (test S code = 23) Piperacillin + R Tazobactam (test code = 29) Tetracycline (test S code = 2) Tobramycin (test code R = 25) Trimethoprim + R Sulfamethoxazole (test code = 47) CULTURE (BEAKER) (test PSEUDOMONAS A <1+ P seudomonas code = 1095) AERUGINOSA aeruginosa Amikacin (test code = See_Comment S [Auto mated 1) message] The system which generated this result transmitted reference range : Susceptible 0-1 6 , Resistant <0 or >16 . The reference range was not used to interpret this result as normal/abnormal . Aztreonam (test code = See_Comment S [Aut omated 32) message] The system which generated this result transmitted reference range : Susceptible 0-8 , Resistant <0 or >8 . The reference range was not used to interpret this result as normal/abnormal . Cefepime (test code = See_Comment S [Auto mated 51) message] The system which generated this result transmitted reference range : Susceptible 0-8 , Resistant <0 or >8 . The reference range was not used to interpret this result as normal/abnormal . Ceftazidime (test code See_Comment S [Aut omated = 27) message] The system which generated this result transmitted reference range : Susceptible 0-8 , Resistant <0 or >8 . The reference range was not used to interpret this result as normal/abnormal . Ciprofloxacin (test See_Comment S [Automa franklin code = 7) message] The system which generated this result transmitted reference range : Susceptible 0-0.5 , Resistant <0 or >.5 . The reference range was not used to interpret this result as normal/abnormal . Doripenem (test code = See_Comment S [Aut omated 100) message] The system which generated this result transmitted reference range : Susceptible 0-2 , Resistant <0 or >2 . The reference range was not used to interpret this result as normal/abnormal . Gentamicin (test code See_Comment S [Auto mated = 18) message] The system which generated this result transmitted reference range : Susceptible 0-4 , Resistant <0 or >4 . The reference range was not used to interpret this result as normal/abnormal . Imipenem (test code = See_Comment R [Auto mated 19) message] The system which generated this result transmitted reference range : Susceptible 0-2 , Resistant <0 or >2 . The reference range was not used to interpret this result as normal/abnormal . Levofloxacin (test See_Comment S [Automat ed code = 22) message] The system which generated this result transmitted reference range : Susceptible 0-1 , Resistant <0 or >1 . The reference range was not used to interpret this result as normal/abnormal . Meropenem (test code = See_Comment S [Aut omated 34) message] The system which generated this result transmitted reference range : Susceptible 0-2 , Resistant <0 or >2 . The reference range was not used to interpret this result as normal/abnormal . Piperacillin (test See_Comment S [Automat ed code = 24) message] The system which generated this result transmitted reference range : Susceptible 0-1 6 , Resistant <0 or >16 . The reference range was not used to interpret this result as normal/abnormal . Piperacillin + See_Comment S [Automated Tazobactam (test code messag e] The = 29) system which generated this result transmitted reference range : Susceptible 0-1 6 , Resistant <0 or >16 . The reference range was not used to interpret this result as normal/abnormal . Tobramycin (test code See_Comment S [Auto mated = 25) message] The system which generated this result transmitted reference range : Susceptible 0-4 , Resistant <0 or >4 . The reference range was not used to interpret this result as normal/abnormal . CULTURE (BEAKER) (test A From Broth Only code = 1095) Vagococcus species GRAM STAIN RESULT <1+ White blood (BEAKER) (test code = cells seen 1123) GRAM STAIN RESULT No organisms seen (BEAKER) (test code = 064999) POCT-GLUCOSE [id number] 08:15:02 Test Item Value Reference Range Interpretation Comments POC-GLUCOSE METER 148 mg/dL 70-110 H : TESTED A T [facility] 6720 (BEAKER) (test code = BRENDA Prieto [facility], 1538) 34170: Air Conditioning Installer/Techni glenis ID = [id number] for [place] nettles (pca2)Ethel ANAEROBIC [id number] 07:56:18 Test Item Value Reference Range Interpretation Comments CULTURE (BEAKER) (test No anaerobes isolated code = 1095) ANAEROBIC [id number] 07:55:19 Test Item Value Reference Range Interpretation Comments CULTURE (BEAKER) (test No anaerobes isolated code = 1095) BASIC METABOLIC [id number] 06:54:44 Test Item Value Reference Range Interpretation Comments SODIUM (BEAKER) 134 meq/L 136-145 L (test code = 381) POTASSIUM (BEAKER) 4.9 meq/L 3.5-5.1 (test code = 379) CHLORIDE (BEAKER) 94 meq/L 98-107 L (test code = 382) CO2 (BEAKER) (test 27 meq/L 22-29 code = 355) BLOOD UREA NITROGEN 27 mg/dL 7-21 H (BEAKER) (test code = 354) CREATININE (BEAKER) 5.54 mg/dL 0.57-1.25 H (test code = 358) GLUCOSE RANDOM 144 mg/dL 70-105 H (BEAKER) (test code = 652) CALCIUM (BEAKER) 9.4 mg/dL 8.4-10.2 (test code = 697) EGFR (BEAKER) (test 11 mL/min/1.73 ESTIMA FRANKLIN GFR IS code = 1092) sq m NOT ACCURATE CREATININE CLEARANCE IN PREDICTING GLOMERULAR FILTRATION RATE . ESTIMATED GFR I S NOT APPLICABLE FOR DIALYSIS PATIEN TS. Air Conditioning Installer ID - PEGGY [id number] 06:53:40 Test Item Value Reference Range Interpretation Comments PHOSPHORUS (BEAKER) (test code = 3.6 mg/dL 2.3-4.7 604) Air Conditioning Installer ID - PEGGY LVANCOMYCIN LEVEL, [id number] 06:44:41 Test Item Value Reference Range Interpretation Comments VANCOMYCIN RANDOM (BEAKER) (test 19.1 ug/mL code = 523) Reference Range: No NormalsOperator ID - PHILIP GCBC (HEMOGRAM ONLY)2021-03-08 06:18:27 Test Item Value Reference Range Interpretation Comments WHITE BLOOD CELL COUNT (BEAKER) 12.6 K/ L 3.5-10.5 H (test code = 775) RED BLOOD CELL COUNT (BEAKER) 3.02 M/ L 4.63-6.08 L (test code = 761) HEMOGLOBIN (BEAKER) (test code = 8.3 GM/DL 13.7-17.5 L 410) HEMATOCRIT (BEAKER) (test code = 28.7 % 40.1-51.0 L 411) MEAN CORPUSCULAR VOLUME (BEAKER) 95.0 fL 79.0-92.2 H (test code = 753) MEAN CORPUSCULAR HEMOGLOBIN 27.5 pg 25.7-32.2 (BEAKER) (test code = 751) MEAN CORPUSCULAR HEMOGLOBIN CONC 28.9 GM/DL 32.3-36.5 L (BEAKER) (test code = 752) RED CELL DISTRIBUTION WIDTH 14.8 % 11.6-14.4 H (BEAKER) (test code = 412) PLATELET COUNT (BEAKER) (test 459 K/CU MM 150-450 H code = 756) MEAN PLATELET VOLUME (BEAKER) 9.1 fL 9.4-12.4 L (test code = 754) NUCLEATED RED BLOOD CELLS 0 /100 WBC 0-0 (BEAKER) (test code = 413) POCT-GLUCOSE [id number] 21:29:47 Test Item Value Reference Range Interpretation Comments POC-GLUCOSE METER 112 mg/dL 70-110 H : TESTED A T [facility] 6720 (BEAKER) (test code = [facility], 1538) 84666: Air Conditioning Installer/Techni glenis ID = [id number] for GEORGI SPARKS POCT-GLUCOSE [id number] 16:47:29 Test Item Value Reference Range Interpretation Comments POC-GLUCOSE METER 99 mg/dL 70-110 : TESTED A T [facility] 6720 (BEAKER) (test code = [facility], 1538) 80883: Air Conditioning Installer/Techni glenis ID = [id number] for LARKIN ER, HIWITHA POCT-GLUCOSE [id number] 11:50:57 Test Item Value Reference Range Interpretation Comments POC-GLUCOSE METER 118 mg/dL 70-110 H : TESTED A T [facility] 6720 (BEAKER) (test code = [facility], 1538) 15436: Air Conditioning Installer/Techni glenis ID = [id number] for SERGO NTER, HIWITHA VANCOMYCIN LEVEL, [id number] 07:42:17 Test Item Value Reference Range Interpretation Comments VANCOMYCIN RANDOM (BEAKER) (test 20.6 ug/mL code = 523) Reference Range: No NormalsOperator ID - PIAYA LBASIC METABOLIC [id number] 07:30:50 Test Item Value Reference Range Interpretation Comments SODIUM (BEAKER) 138 meq/L 136-145 (test code = 381) POTASSIUM (BEAKER) 4.3 meq/L 3.5-5.1 (test code = 379) CHLORIDE (BEAKER) 99 meq/L 98-107 (test code = 382) CO2 (BEAKER) (test 26 meq/L 22-29 code = 355) BLOOD UREA NITROGEN 19 mg/dL 7-21 (BEAKER) (test code = 354) CREATININE (BEAKER) 4.32 mg/dL 0.57-1.25 H (test code = 358) GLUCOSE RANDOM 109 mg/dL 70-105 H (BEAKER) (test code = 652) CALCIUM (BEAKER) 9.5 mg/dL 8.4-10.2 (test code = 697) EGFR (BEAKER) (test 14 mL/min/1.73 ESTIMA FRANKLIN GFR IS code = 1092) sq m NOT ACCURATE CREATININE CLEARANCE IN PREDICTING GLOMERULAR FILTRATION RATE . ESTIMATED GFR I S NOT APPLICABLE FOR DIALYSIS PATIEN TS. Air Conditioning Installer ID - PHILIP GPOCT-GLUCOSE [id number] 07:24:27 Test Item Value Reference Range Interpretation Comments POC-GLUCOSE METER 114 mg/dL 70-110 H : TESTED A T [facility] 6720 (BEAKER) (test code = BRENDA Prieto [place], 1538) 75700: Air Conditioning Installer/Techni glenis ID = [id number] for LATISHA PATTERSONA CBC (HEMOGRAM ONLY)2021-03-07 07:11:27 Test Item Value Reference Range Interpretation Comments WHITE BLOOD CELL COUNT (BEAKER) 10.4 K/ L 3.5-10.5 (test code = 775) RED BLOOD CELL COUNT (BEAKER) 2.98 M/ L 4.63-6.08 L (test code = 761) HEMOGLOBIN (BEAKER) (test code = 8.2 GM/DL 13.7-17.5 L 410) HEMATOCRIT (BEAKER) (test code = 28.1 % 40.1-51.0 L 411) MEAN CORPUSCULAR VOLUME (BEAKER) 94.3 fL 79.0-92.2 H (test code = 753) MEAN CORPUSCULAR HEMOGLOBIN 27.5 pg 25.7-32.2 (BEAKER) (test code = 751) MEAN CORPUSCULAR HEMOGLOBIN CONC 29.2 GM/DL 32.3-36.5 L (BEAKER) (test code = 752) RED CELL DISTRIBUTION WIDTH 14.7 % 11.6-14.4 H (BEAKER) (test code = 412) PLATELET COUNT (BEAKER) (test 413 K/CU MM 150-450 code = 756) MEAN PLATELET VOLUME (BEAKER) 8.7 fL 9.4-12.4 L (test code = 754) NUCLEATED RED BLOOD CELLS 0 /100 WBC 0-0 (BEAKER) (test code = 413) CBC (HEMOGRAM ONLY)2021-03-06 22:19:18 Test Item Value Reference Range Interpretation Comments WHITE BLOOD CELL COUNT (BEAKER) 12.9 K/ L 3.5-10.5 H (test code = 775) RED BLOOD CELL COUNT (BEAKER) 2.80 M/ L 4.63-6.08 L (test code = 761) HEMOGLOBIN (BEAKER) (test code = 7.8 GM/DL 13.7-17.5 L 410) HEMATOCRIT (BEAKER) (test code = 24.8 % 40.1-51.0 L 411) MEAN CORPUSCULAR VOLUME (BEAKER) 88.6 fL 79.0-92.2 (test code = 753) MEAN CORPUSCULAR HEMOGLOBIN 27.9 pg 25.7-32.2 (BEAKER) (test code = 751) MEAN CORPUSCULAR HEMOGLOBIN CONC 31.5 GM/DL 32.3-36.5 L (BEAKER) (test code = 752) RED CELL DISTRIBUTION WIDTH 14.5 % 11.6-14.4 H (BEAKER) (test code = 412) PLATELET COUNT (BEAKER) (test 424 K/CU MM 150-450 code = 756) MEAN PLATELET VOLUME (BEAKER) 9.5 fL 9.4-12.4 (test code = 754) NUCLEATED RED BLOOD CELLS 0 /100 WBC 0-0 (BEAKER) (test code = 413) POCT-GLUCOSE [id number] 21:16:03 Test Item Value Reference Range Interpretation Comments POC-GLUCOSE METER 188 mg/dL 70-110 H : TESTED A T [facility] 6720 (BEAKER) (test code = [facility], 1538) [address]: Air Conditioning Installer/Techni glenis ID = [id number] for NICOLE MAR POCT-GLUCOSE [id number] 18:46:10 Test Item Value Reference Range Interpretation Comments POC-GLUCOSE METER 142 mg/dL 70-110 H : TESTED A T [facility] 6720 (BEAKER) (test code = [facility], 1538) [address]: Air Conditioning Installer/Techni glenis ID = [id number] for LENNY PATTERSON [id number] 17:38:55 Test Item Value Reference Range Interpretation Comments PHOSPHORUS (BEAKER) (test code = 2.7 mg/dL 2.3-4.7 604) Air Conditioning Installer ID - BSPOCT-GLUCOSE [id number] 17:27:06 Test Item Value Reference Range Interpretation Comments POC-GLUCOSE METER 142 mg/dL 70-110 H : TESTED A T [facility] 6720 (BEAKER) (test code = [facility], 153) 18454: Air Conditioning Installer/Techni glenis ID = [id number] for Malcolm Honeycutt POCT-GLUCOSE [id number] 13:21:37 Test Item Value Reference Range Interpretation Comments POC-GLUCOSE METER 182 mg/dL 70-110 H : TESTED A T [facility] 6720 (BEAKER) (test code = [facility], 153) 64173: Air Conditioning Installer/Techni glenis ID = [id number] for HU NTER, HIWITHA SPIN/CONCENTRATION [id number] 11:56:51 Test Item Value Reference Range Interpretation Comments CONCENTRATION CHARGED (BEAKER) (test Done code = 2657) SPIN/CONCENTRATION [id number] 11:55:44 Test Item Value Reference Range Interpretation Comments CONCENTRATION CHARGED (BEAKER) (test Done code = 2657) [id number] 11:30:22 Test Item Value Reference Range Interpretation Comments ACTIVATED CLOTTING TIME 136 sec : 74 -137 seconds, (BEAKER) (test code = Baseli ne: TESTED AT 441) [address], [facility] 30: Air Conditioning Installer/Techni glenis ID = [id number] for CO NROD DUPLECHIAN (V), GERSON POCT-GLUCOSE [id number] 11:18:31 Test Item Value Reference Range Interpretation Comments POC-GLUCOSE METER 161 mg/dL 70-110 H : [facility] (BE[facility]ER[facility] (test code = [facility], 153) 355[address]: Air Conditioning Installer/Techni glenis ID = [id number] for CI EROS, ANNA [id number] 09:51:56 Test Item Value Reference Range Interpretation Comments ACTIVATED CLOTTING TIME 175 sec : 74 -137 seconds, (BEAKER) (test code = Baseli ne: TESTED AT 441) [facility] 6720 [facility], [facility] 30: Air Conditioning Installer/Techni glenis ID = [id number] for HI EMILY, MORELIA [id number] 09:20:33 Test Item Value Reference Range Interpretation Comments ACTIVATED CLOTTING TIME 180 sec : 74 -137 seconds, (BEAKER) (test code = Mariah ne: TESTED AT 441) [facility] [address] [place], [address]: Air Conditioning Installer/Techni glenis ID = [id number] for MORELIA IVAN CBC (HEMOGRAM ONLY)2021-03-06 05:55:50 Test Item Value Reference Range Interpretation Comments WHITE BLOOD CELL COUNT (BEAKER) 10.2 K/ L 3.5-10.5 (test code = 775) RED BLOOD CELL COUNT (BEAKER) 2.71 M/ L 4.63-6.08 L (test code = 761) HEMOGLOBIN (BEAKER) (test code = 7.5 GM/DL 13.7-17.5 L 410) HEMATOCRIT (BEAKER) (test code = 26.1 % 40.1-51.0 L 411) MEAN CORPUSCULAR VOLUME (BEAKER) 96.3 fL 79.0-92.2 H (test code = 753) MEAN CORPUSCULAR HEMOGLOBIN 27.7 pg 25.7-32.2 (BEAKER) (test code = 751) MEAN CORPUSCULAR HEMOGLOBIN CONC 28.7 GM/DL 32.3-36.5 L (BEAKER) (test code = 752) RED CELL DISTRIBUTION WIDTH 14.6 % 11.6-14.4 H (BEAKER) (test code = 412) PLATELET COUNT (BEAKER) (test 446 K/CU MM 150-450 code = 756) MEAN PLATELET VOLUME (BEAKER) 9.6 fL 9.4-12.4 (test code = 754) NUCLEATED RED BLOOD CELLS 0 /100 WBC 0-0 (BEAKER) (test code = 413) BASIC METABOLIC [id number] 05:46:30 Test Item Value Reference Range Interpretation Comments SODIUM (BEAKER) 134 meq/L 136-145 L (test code = 381) POTASSIUM (BEAKER) 4.9 meq/L 3.5-5.1 (test code = 379) CHLORIDE (BEAKER) 98 meq/L 98-107 (test code = 382) CO2 (BEAKER) (test 26 meq/L 22-29 code = 355) BLOOD UREA NITROGEN 34 mg/dL 7-21 H (BEAKER) (test code = 354) CREATININE (BEAKER) 5.95 mg/dL 0.57-1.25 H (test code = 358) GLUCOSE RANDOM 167 mg/dL 70-105 H (BEAKER) (test code = 652) CALCIUM (BEAKER) 8.9 mg/dL 8.4-10.2 (test code = 697) EGFR (BEAKER) (test 10 mL/min/1.73 ESTIMA FRANKLIN GFR IS code = 1092) sq m NOT ACCURATE CREATININE CLEARANCE IN PREDICTING GLOMERULAR FILTRATION RATE . ESTIMATED GFR I S NOT APPLICABLE FOR DIALYSIS PATIEN TS. Air Conditioning Installer ID - PITHIERNO [id number] 05:33:56 Test Item Value Reference Range Interpretation Comments MAGNESIUM (BEAKER) (test code = 2.3 mg/dL 1.6-2.6 627) Air Conditioning Installer ID - PEGGY LPT/[id number] 05:23:15 Test Item Value Reference Range Interpretation Comments PROTIME (BEAKER) (test 15.4 seconds 11.9-14.2 H code = 759) INR (BEAKER) (test 1.24 See_Comment [Automat ed code = 370) message] The sy stem which generated this result transmitted reference range : <=5.90. The reference range was not used to interpret this result as normal/abnormal . PARTIAL THROMBOPLASTIN 41.5 seconds 22.5-36.0 H TIME (RACQUELAKER) (test code = 760) RECOMMENDED COUMADIN/WARFARIN INR THERAPY RANGESSTANDARD DOSE: 2.0 - 3.0 Includes: PROPHYLAXIS forvenous thrombosis, systemic embolization; TREATMENT for venous thrombosis and/or pulmonary embolus.HIGH RISK: Target INR is 2.5-3.5 for patients with mechanical heart valves.POCT-GLUCOSE [id number] 21:09:05 Test Item Value Reference Range Interpretation Comments POC-GLUCOSE METER 166 mg/dL 70-110 H : TESTED A T [facility] 6720 ([facility]) (test code = [facility] MARYVALELESIA Prieto [facility], 1538) [address]: Air Conditioning Installer/Techni glenis ID = [id number] for NATALIA DIAZ NICOLE POCT-GLUCOSE [id number] 15:59:12 Test Item Value Reference Range Interpretation Comments POC-GLUCOSE METER 183 mg/dL 70-110 H : Notified RN/MD: ([facility]) (test code = TESTED AT [facility] 6720 1538) [facility], [address]: Air Conditioning Installer/Techni glenis ID = [id number] for Wh ite (contract), Koko ert POCT-GLUCOSE [id number] 13:33:11 Test Item Value Reference Range Interpretation Comments POC-GLUCOSE METER 218 mg/dL 70-110 H : Notified RN/MD: (ALEYDA) (test code = TESTED AT [facility] 6720 1538) [facility], [address]: Air Conditioning Installer/Techni glenis ID = [id number] for Wh ite (contract), Koko ert RAD, FOOT, MIN 3 VIEWS, [id number] 12:35:00Reason for exam:->s/p debridement[facility]W BLACK[facility] : 1965 Sex: MFINAL REPORT RAD, FOOT, MIN 3 VIEWS, LEFT INDICATION: s/p debridement COMPARISON: None TECHNIQUE: AP, lateral and oblique radiographs of the left ankle FINDINGS/IMPRESSION:Vascular graft overlies the posterior leg. Status post transmetatarsal amputation. No radiographic evidence of osteomyelitis. Signed: Vicki Gaspar MDRptaricia Verified Date/Time: 03/05/2021 12:35:35 Reading Location: [facility] Radiology Reading Room POCT-GLUCOSE [id number] 09:02:02 Test Item Value Reference Range Interpretation Comments POC-GLUCOSE METER 124 mg/dL 70-110 H : TESTED A T [facility] 6720 (ALEYDA) (test code = BRENDA Prieto [facility], 1538) [address]: Air Conditioning Installer/Techni glenis ID = [id number] for IRENA FOSTER METABOLIC [id number] 07:18:20 Test Item Value Reference Range Interpretation Comments SODIUM (BEAKER) 136 meq/L 136-145 (test code = 381) POTASSIUM (BEAKER) 4.7 meq/L 3.5-5.1 (test code = 379) CHLORIDE (BEAKER) 97 meq/L 98-107 L (test code = 382) CO2 (BEAKER) (test 27 meq/L 22-29 code = 355) BLOOD UREA NITROGEN 26 mg/dL 7-21 H (BEAKER) (test code = 354) CREATININE (BEAKER) 4.78 mg/dL 0.57-1.25 H (test code = 358) GLUCOSE RANDOM 155 mg/dL 70-105 H (BEAKER) (test code = 652) CALCIUM (BEAKER) 9.4 mg/dL 8.4-10.2 (test code = 697) EGFR (BEAKER) (test 13 mL/min/1.73 ESTIMA FRANKLIN GFR IS code = 1092) sq m NOT ACCURATE CREATININE CLEARANCE IN PREDICTING GLOMERULAR FILTRATION RATE . ESTIMATED GFR I S NOT APPLICABLE FOR DIALYSIS PATIEN TS. Air Conditioning Installer ID - PHILIP [id number] 06:57:25 Test Item Value Reference Range Interpretation Comments MAGNESIUM (BEAKER) (test code = 2.1 mg/dL 1.6-2.6 627) Air Conditioning Installer ID - PHILIP GVANCOMYCIN LEVEL, [id number] 06:55:42 Test Item Value Reference Range Interpretation Comments VANCOMYCIN RANDOM (BEAKER) (test 17.8 ug/mL code = 523) Reference Range: No NormalsOperator ID - PHILIP GPOCT-GLUCOSE [id number] 22:02:43 Test Item Value Reference Range Interpretation Comments POC-GLUCOSE METER 183 mg/dL 70-110 H : TESTED A T [facility] 6720 ([employer] (test code = [facility], 1538) 08[address]: Air Conditioning Installer/Techni glenis ID = [id number] for Gi sset (pca2)Brooks POCT-GLUCOSE [id number] 17:28:36 Test Item Value Reference Range Interpretation Comments POC-GLUCOSE METER 168 mg/dL 70-110 H : TESTED A T [facility] 6720 (BEAKER) (test code = [facility], 1538) 97272: Air Conditioning Installer/Techni glenis ID = [id number] for Sa ntos, Tejal POCT-GLUCOSE [id number] 12:18:47 Test Item Value Reference Range Interpretation Comments POC-GLUCOSE METER 81 mg/dL 70-110 : TESTED A T [facility] 6720 (BEAKER) (test code = [facility], 1538) [address]: Air Conditioning Installer/Techni glenis ID = [id number] for Ekaterina os, Tejal POCT-GLUCOSE [id number] 08:43:21 Test Item Value Reference Range Interpretation Comments POC-GLUCOSE METER 97 mg/dL 70-110 : TESTED A T [facility] 6720 (BEAKER) (test code = [facility], 1538) 415[address]: Air Conditioning Installer/Techni glenis ID = [id number] for Lashawn Carcamo BASIC METABOLIC [id number] 08:11:50 Test Item Value Reference Range Interpretation Comments SODIUM (BEAKER) 130 meq/L 136-145 L (test code = 381) POTASSIUM (BEAKER) 4.8 meq/L 3.5-5.1 (test code = 379) CHLORIDE (BEAKER) 94 meq/L 98-107 L (test code = 382) CO2 (BEAKER) (test 25 meq/L 22-29 code = 355) BLOOD UREA NITROGEN 43 mg/dL 7-21 H (BEAKER) (test code = 354) CREATININE (BEAKER) 6.40 mg/dL 0.57-1.25 H (test code = 358) GLUCOSE RANDOM 112 mg/dL 70-105 H (BEAKER) (test code = 652) CALCIUM (BEAKER) 9.2 mg/dL 8.4-10.2 (test code = 697) EGFR (BEAKER) (test 9 mL/min/1.73 ESTIMAT ED GFR IS code = 1092) sq m NOT ACCURATE CREATININE CLEARANCE IN PREDICTING GLOMERULAR FILTRATION RATE . ESTIMATED GFR I S NOT APPLICABLE FOR DIALYSIS PATIEN TS. Air Conditioning Installer ID - PEGGY [id number] 08:07:28 Test Item Value Reference Range Interpretation Comments MAGNESIUM (BEAKER) (test code = 2.3 mg/dL 1.6-2.6 627) Air Conditioning Installer ID Karan WOODS LSARS-COV2/RT-PCR ([facility])2021-03-04 07:57:00 Test Item Value Reference Range Interpretation Comments SARS-COV2/RT-PCR Negative Negative The SARS-Co V-2 target (test code = nucleic acids a re not 0172007) detected in thi s specimen. Negative result s do not preclude SARS-C oV-2 infection and s hould not be used as the tre e basis for patient managem ent decisions. Nega tive results must be combine d with clinical observ ations, patient history , and epidemiological information. A false negativ e result may occur if a spec imen is improperly ari ected, transported or handled. This SARS CoV-2 test is a rapid, real-elisa e RT-PCR test intended for th e qualitative detection of nu cleic acid from SARS-CoV-2 in a nasopharyngeal swab specimen collected from individuals suspected of CO VID-19 by their healthcar e provider. This test has been authorized by FDA under an EUA for use by authorized laboratories. This test is only authorized for the duration of the declaration that circumstances exist justifying the authorization of emergency use of in vitro diagnostic tests for detection and/or diagnosis of COVID-19 under Section 564(b)(1) of the Federal Food, Drug and Cosmetic Act, 21 U.S.C. 360bbb- 3(b)(1), unless the authorization is terminated or revoked sooner. Fact Sheet for Healthcare Providers: https://www.[employer]/Documents/Xpert%20Xpress%20SARS%20CoV-2/Fact%20Sheets/862-1602%20SARS-COV -2%20HEALTHCARE%20PROVIDERS%20FACT%20SHEET.pdf Fact Sheet for Healthcare Patients: https://www.[employer]/Documents/Xpert %20Xpress%20SARS%20CoV-2/Fact%20Sheets/3023801%71ZYSN-HHV-2%20PATIENT%20FACT%20 SHEET.pdfCBC (HEMOGRAM ONLY)2021-03-04 05:51:58 Test Item Value Reference Range Interpretation Comments WHITE BLOOD CELL COUNT (BEAKER) 13.4 K/ L 3.5-10.5 H (test code = 775) RED BLOOD CELL COUNT (BEAKER) 3.12 M/ L 4.63-6.08 L (test code = 761) HEMOGLOBIN (BEAKER) (test code = 8.5 GM/DL 13.7-17.5 L 410) HEMATOCRIT (BEAKER) (test code = 28.9 % 40.1-51.0 L 411) MEAN CORPUSCULAR VOLUME (BEAKER) 92.6 fL 79.0-92.2 H (test code = 753) MEAN CORPUSCULAR HEMOGLOBIN 27.2 pg 25.7-32.2 (BEAKER) (test code = 751) MEAN CORPUSCULAR HEMOGLOBIN CONC 29.4 GM/DL 32.3-36.5 L (BEAKER) (test code = 752) RED CELL DISTRIBUTION WIDTH 14.5 % 11.6-14.4 H (BEAKER) (test code = 412) PLATELET COUNT (BEAKER) (test 375 K/CU MM 150-450 code = 756) MEAN PLATELET VOLUME (BEAKER) 9.3 fL 9.4-12.4 L (test code = 754) NUCLEATED RED BLOOD CELLS 0 /100 WBC 0-0 (BEAKER) (test code = 413) POCT-GLUCOSE [id number] 21:24:41 Test Item Value Reference Range Interpretation Comments POC-GLUCOSE METER 181 mg/dL 70-110 H : TESTED A T [facility] 6720 (BEAKER) (test code = [facility], 153) [address]: Air Conditioning Installer/Techni glenis ID = [id number] for DA VIS, ALLISON POCT-GLUCOSE [id number] 17:08:58 Test Item Value Reference Range Interpretation Comments POC-GLUCOSE METER 149 mg/dL 70-110 H : TESTED A T [facility] 6720 (BEAKER) (test code = [facility], 1538) [address]: Air Conditioning Installer/Techni glenis ID = [id number] for ZA VALA, ERANDY POCT-GLUCOSE [id number] 12:17:45 Test Item Value Reference Range Interpretation Comments POC-GLUCOSE METER 163 mg/dL 70-110 H : TESTED A T [facility] 6720 (BEAKER) (test code = [facility], 1538) [address]: Air Conditioning Installer/Techni glenis ID = [id number] for ZA VALA, ERANDY ANAEROBIC [id number] 08:42:20 Test Item Value Reference Range Interpretation Comments CULTURE (BEAKER) (test code A 1+ Prevotella buccae = 1095) POCT-GLUCOSE [id number] 07:27:36 Test Item Value Reference Range Interpretation Comments POC-GLUCOSE METER 133 mg/dL 70-110 H : TESTED A T [facility] 6720 (BEAKER) (test code = BR[facility] [place], 1538) [address]: Air Conditioning Installer/Techni glenis ID = [id number] for JORGE L CRUZ BASIC METABOLIC [id number] 05:49:24 Test Item Value Reference Range Interpretation Comments SODIUM (BEAKER) 134 meq/L 136-145 L (test code = 381) POTASSIUM (BEAKER) 4.2 meq/L 3.5-5.1 (test code = 379) CHLORIDE (BEAKER) 95 meq/L 98-107 L (test code = 382) CO2 (BEAKER) (test 24 meq/L 22-29 code = 355) BLOOD UREA NITROGEN 34 mg/dL 7-21 H (BEAKER) (test code = 354) CREATININE (BEAKER) 5.30 mg/dL 0.57-1.25 H (test code = 358) GLUCOSE RANDOM 150 mg/dL 70-105 H (BEAKER) (test code = 652) CALCIUM (BEAKER) 9.3 mg/dL 8.4-10.2 (test code = 697) EGFR (BEAKER) (test 11 mL/min/1.73 ESTIMA FRANKLIN GFR IS code = 1092) sq m NOT ACCURATE CREATININE CLEARANCE IN PREDICTING GLOMERULAR FILTRATION RATE . ESTIMATED GFR I S NOT APPLICABLE FOR DIALYSIS PATIEN TS. Air Conditioning Installer ID - PEGGY [id number] 05:38:38 Test Item Value Reference Range Interpretation Comments MAGNESIUM (BEAKER) (test code = 2.1 mg/dL 1.6-2.6 627) Air Conditioning Installer ID - PEGGY LVANCOMYCIN LEVEL, [id number] 05:04:26 Test Item Value Reference Range Interpretation Comments VANCOMYCIN TROUGH (BEAKER) (test 27.7 ug/mL 10.0-20.0 H code = 522) Air Conditioning Installer ID - PEGGY LPOCT-GLUCOSE [id number] 21:02:53 Test Item Value Reference Range Interpretation Comments POC-GLUCOSE METER 126 mg/dL 70-110 H : TESTED A T [facility] 6720 (BEAKER) (test code = [facility], 1538) [address]: Air Conditioning Installer/Techni glenis ID = [id number] for Breanna lopez (pca2)Mary POCT-GLUCOSE [id number] 17:08:07 Test Item Value Reference Range Interpretation Comments POC-GLUCOSE METER 151 mg/dL 70-110 H : TESTED A T [facility] 6720 (BEAKER) (test code = [facility], 1538) [address]: Air Conditioning Installer/Techni glenis ID = [id number] for JORGE L CRUZ POCT-GLUCOSE [id number] 07:22:42 Test Item Value Reference Range Interpretation Comments POC-GLUCOSE METER 158 mg/dL 70-110 H : TESTED A T [facility] 6720 (BEAKER) (test code = [facility], 1538) 21262: Air Conditioning Installer/Techni glenis ID = [id number] for JORGE L CRUZ BASIC METABOLIC [id number] 06:47:00 Test Item Value Reference Range Interpretation Comments SODIUM (BEAKER) 136 meq/L 136-145 (test code = 381) POTASSIUM (BEAKER) 4.1 meq/L 3.5-5.1 (test code = 379) CHLORIDE (BEAKER) 98 meq/L 98-107 (test code = 382) CO2 (BEAKER) (test 23 meq/L 22-29 code = 355) BLOOD UREA NITROGEN 24 mg/dL 7-21 H (BEAKER) (test code = 354) CREATININE (BEAKER) 4.16 mg/dL 0.57-1.25 H (test code = 358) GLUCOSE RANDOM 148 mg/dL 70-105 H (BEAKER) (test code = 652) CALCIUM (BEAKER) 9.1 mg/dL 8.4-10.2 (test code = 697) EGFR (BEAKER) (test 15 mL/min/1.73 ESTIMA FRANKLIN GFR IS code = 1092) sq m NOT ACCURATE CREATININE CLEARANCE IN PREDICTING GLOMERULAR FILTRATION RATE . ESTIMATED GFR I S NOT APPLICABLE FOR DIALYSIS PATIEN TS. Air Conditioning Installer ID - [id number] 06:45:22 Test Item Value Reference Range Interpretation Comments MAGNESIUM (BEAKER) (test code = 2.1 mg/dL 1.6-2.6 627) Air Conditioning Installer ID - DBCBC W/PLT COUNT & AUTO [id number] 04:59:36 Test Item Value Reference Range Interpretation Comments WHITE BLOOD CELL COUNT 8.6 K/ L 3.5-10.5 (BEAKER) (test code = 775) RED BLOOD CELL COUNT 3.14 M/ L 4.63-6.08 L (BEAKER) (test code = 761) HEMOGLOBIN (BEAKER) 8.6 GM/DL 13.7-17.5 L (test code = 410) HEMATOCRIT (BEAKER) 29.6 % 40.1-51.0 L (test code = 411) MEAN CORPUSCULAR 94.3 fL 79.0-92.2 H Discordant MCV VOLUME (BEAKER) (test result s compared to code = 753) previous result s; clinical correl ation required. MEAN CORPUSCULAR 27.4 pg 25.7-32.2 HEMOGLOBIN (BEAKER) (test code = 751) MEAN CORPUSCULAR 29.1 GM/DL 32.3-36.5 L HEMOGLOBIN CONC (BEAKER) (test code = 752) RED CELL DISTRIBUTION 14.7 % 11.6-14.4 H WIDTH (BEAKER) (test code = 412) PLATELET COUNT 338 K/CU MM 150-450 (BEAKER) (test code = 756) MEAN PLATELET VOLUME 9.5 fL 9.4-12.4 (BEAKER) (test code = 754) NUCLEATED RED BLOOD 0 /100 WBC 0-0 CELLS (BEAKER) (test code = 413) NEUTROPHILS RELATIVE 70 % PERCENT (BEAKER) (test code = 429) LYMPHOCYTES RELATIVE 17 % PERCENT (BEAKER) (test code = 430) MONOCYTES RELATIVE 8 % PERCENT (BEAKER) (test code = 431) EOSINOPHILS RELATIVE 4 % PERCENT (BEAKER) (test code = 432) BASOPHILS RELATIVE 1 % PERCENT (BEAKER) (test code = 437) NEUTROPHILS ABSOLUTE 5.97 K/ L 1.78-5.38 H COUNT (BEAKER) (test code = 670) LYMPHOCYTES ABSOLUTE 1.44 K/ L 1.32-3.57 COUNT (BEAKER) (test code = 414) MONOCYTES ABSOLUTE 0.69 K/ L 0.30-0.82 COUNT (BEAKER) (test code = 415) EOSINOPHILS ABSOLUTE 0.37 K/ L 0.04-0.54 COUNT (BEAKER) (test code = 416) BASOPHILS ABSOLUTE 0.07 K/ L 0.01-0.08 COUNT (BEAKER) (test code = 417) IMMATURE 0 % 0-1 GRANULOCYTES-RELATIVE PERCENT (BEAKER) (test code = 2801) POCT-GLUCOSE [id number] 21:08:15 Test Item Value Reference Range Interpretation Comments POC-GLUCOSE METER 148 mg/dL 70-110 H : TESTED A T [facility] 6720 (BEAKER) (test code = [facility], 1538) 436[address]: Air Conditioning Installer/Techni glenis ID = [id number] for Breanna lopez ([email or web address])Mary a POCT-GLUCOSE [id number] 16:39:44 Test Item Value Reference Range Interpretation Comments POC-GLUCOSE METER 121 mg/dL 70-110 H : TESTED A T [facility] 6720 (BEAKER) (test code = [facility], 1538) 83321: Air Conditioning Installer/Techni glenis ID = [id number] for MITESH DANIELSASINNDY POCT-GLUCOSE [id number] 12:51:13 Test Item Value Reference Range Interpretation Comments POC-GLUCOSE METER 133 mg/dL 70-110 H : TESTED A T [facility] 6720 (BEAKER) (test code = [facility], 1538) 43147: Air Conditioning Installer/Techni glenis ID = [id number] for ZA VALA, SINNDY POCT-GLUCOSE [id number] 07:46:31 Test Item Value Reference Range Interpretation Comments POC-GLUCOSE METER 180 mg/dL 70-110 H : TESTED A T [facility] 6720 (BEAKER) (test code = [facility], 1538) 78777: Air Conditioning Installer/Techni glenis ID = [id number] for ZA VALA, SINNDY BLOOD [id number] 06:00:25 Test Item Value Reference Range Interpretation Comments CULTURE (BEAKER) (test No growth in 5 days code = 1095) The specimen volume collected for this blood culture was below the optimum (10 mL per bottle or 20 mL total). Use of lower volumes may adversely affect recovery and/or detection times of some organisms.BLOOD [id number] 06:00:25 Test Item Value Reference Range Interpretation Comments CULTURE (BEAKER) (test No growth in 5 days code = 1095) BASIC METABOLIC [id number] 04:05:26 Test Item Value Reference Range Interpretation Comments SODIUM (BEAKER) 139 meq/L 136-145 (test code = 381) POTASSIUM (BEAKER) 4.6 meq/L 3.5-5.1 (test code = 379) CHLORIDE (BEAKER) 100 meq/L 98-107 (test code = 382) CO2 (BEAKER) (test 24 meq/L 22-29 code = 355) BLOOD UREA NITROGEN 32 mg/dL 7-21 H (BEAKER) (test code = 354) CREATININE (BEAKER) 5.19 mg/dL 0.57-1.25 H (test code = 358) GLUCOSE RANDOM 167 mg/dL 70-105 H (BEAKER) (test code = 652) CALCIUM (BEAKER) 9.9 mg/dL 8.4-10.2 (test code = 697) EGFR (BEAKER) (test 12 mL/min/1.73 ESTIMA FRANKLIN GFR IS code = 1092) sq m NOT ACCURATE CREATININE CLEARANCE IN PREDICTING GLOMERULAR FILTRATION RATE . ESTIMATED GFR I S NOT APPLICABLE FOR DIALYSIS PATIEN TS. Air Conditioning Installer ID - [id number] 04:05:06 Test Item Value Reference Range Interpretation Comments MAGNESIUM (BEAKER) (test code = 2.1 mg/dL 1.6-2.6 627) Air Conditioning Installer ID - [id number] W/PLT COUNT & AUTO [id number] 03:49:24 Test Item Value Reference Range Interpretation Comments WHITE BLOOD CELL COUNT (BEAKER) 10.1 K/ L 3.5-10.5 (test code = 775) RED BLOOD CELL COUNT (BEAKER) 3.16 M/ L 4.63-6.08 L (test code = 761) HEMOGLOBIN (BEAKER) (test code = 8.7 GM/DL 13.7-17.5 L 410) HEMATOCRIT (BEAKER) (test code = 28.5 % 40.1-51.0 L 411) MEAN CORPUSCULAR VOLUME (BEAKER) 90.2 fL 79.0-92.2 (test code = 753) MEAN CORPUSCULAR HEMOGLOBIN 27.5 pg 25.7-32.2 (BEAKER) (test code = 751) MEAN CORPUSCULAR HEMOGLOBIN CONC 30.5 GM/DL 32.3-36.5 L (BEAKER) (test code = 752) RED CELL DISTRIBUTION WIDTH 15.1 % 11.6-14.4 H (BEAKER) (test code = 412) PLATELET COUNT (BEAKER) (test 289 K/CU MM 150-450 code = 756) MEAN PLATELET VOLUME (BEAKER) 9.3 fL 9.4-12.4 L (test code = 754) NUCLEATED RED BLOOD CELLS 0 /100 WBC 0-0 (BEAKER) (test code = 413) NEUTROPHILS RELATIVE PERCENT 75 % (BEAKER) (test code = 429) LYMPHOCYTES RELATIVE PERCENT 13 % (BEAKER) (test code = 430) MONOCYTES RELATIVE PERCENT 7 % (BEAKER) (test code = 431) EOSINOPHILS RELATIVE PERCENT 3 % (BEAKER) (test code = 432) BASOPHILS RELATIVE PERCENT 1 % (BEAKER) (test code = 437) NEUTROPHILS ABSOLUTE COUNT 7.56 K/ L 1.78-5.38 H (BEAKER) (test code = 670) LYMPHOCYTES ABSOLUTE COUNT 1.30 K/ L 1.32-3.57 L (BEAKER) (test code = 414) MONOCYTES ABSOLUTE COUNT (BEAKER) 0.73 K/ L 0.30-0.82 (test code = 415) EOSINOPHILS ABSOLUTE COUNT 0.34 K/ L 0.04-0.54 (BEAKER) (test code = 416) BASOPHILS ABSOLUTE COUNT (BEAKER) 0.07 K/ L 0.01-0.08 (test code = 417) IMMATURE GRANULOCYTES-RELATIVE 1 % 0-1 PERCENT (BEAKER) (test code = 2801) POCT-GLUCOSE [id number] 21:58:10 Test Item Value Reference Range Interpretation Comments POC-GLUCOSE METER 165 mg/dL 70-110 H : TESTED A T [facility] 6720 (BEAKER) (test code [facility], = 1538) [address]: Air Conditioning Installer/Techni glenis ID = [id number] for Billie Puckett POCT-GLUCOSE [id number] 17:16:52 Test Item Value Reference Range Interpretation Comments POC-GLUCOSE METER 193 mg/dL 70-110 H : TESTED A T [facility] 6720 (BEAKER) (test code = BRENDA Prieto [facility], 1538) [address]: Air Conditioning Installer/Techni glenis ID = [id number] for JOSHUA BEAR POCT-GLUCOSE [id number] 12:17:07 Test Item Value Reference Range Interpretation Comments POC-GLUCOSE METER 248 mg/dL 70-110 H : TESTED A T [facility] 6720 (BEAKER) (test code = BRENDA Prieto [facility], 1538) [address]: Air Conditioning Installer/Techni glenis ID = [id number] for JOSHUA BEAR SURGICALLY OBTAINED CULTURE + GRAM [id number] 08:13:40 Test Item Value Reference Range Interpretation Comments CULTURE (BEAKER) (test See comment code = 1095) GRAM STAIN RESULT 1+ WBCs (BEAKER) (test code = 1123) GRAM STAIN RESULT 1+ gram negative rods (BEAKER) (test code = 870973) GRAM STAIN RESULT <1+ gram positive rods (BEAKER) (test code = 735409) GRAM STAIN RESULT 1+ gram positive cocci (BEAKER) (test code = in pairs 414547) 4+ Enteric organisms of >2 types4+ Skin floraPOCT-GLUCOSE [id number] 07:44:58 Test Item Value Reference Range Interpretation Comments POC-GLUCOSE METER 185 mg/dL 70-110 H : Notified RN/MD: (BEAKER) (test code = TESTED AT [facility] 6720 1538) [facility], [address]: Air Conditioning Installer/Techni glenis ID = [id number] for JOSHUA BEAR BASIC METABOLIC [id number] 04:26:24 Test Item Value Reference Range Interpretation Comments SODIUM (BEAKER) 142 meq/L 136-145 (test code = 381) POTASSIUM (BEAKER) 4.2 meq/L 3.5-5.1 (test code = 379) CHLORIDE (BEAKER) 101 meq/L 98-107 (test code = 382) CO2 (BEAKER) (test 27 meq/L 22-29 code = 355) BLOOD UREA NITROGEN 21 mg/dL 7-21 (BEAKER) (test code = 354) CREATININE (BEAKER) 3.96 mg/dL 0.57-1.25 H (test code = 358) GLUCOSE RANDOM 179 mg/dL 70-105 H (BEAKER) (test code = 652) CALCIUM (BEAKER) 9.9 mg/dL 8.4-10.2 (test code = 697) EGFR (BEAKER) (test 16 mL/min/1.73 ESTIMA FRANKLIN GFR IS code = 1092) sq m NOT ACCURATE CREATININE CLEARANCE IN PREDICTING GLOMERULAR FILTRATION RATE . ESTIMATED GFR I S NOT APPLICABLE FOR DIALYSIS PATIEN TS. Air Conditioning Installer ID - KEVIN [id number] 04:26:06 Test Item Value Reference Range Interpretation Comments MAGNESIUM (BEAKER) (test code = 2.1 mg/dL 1.6-2.6 627) Air Conditioning Installer ID - KEVIN MVANCOMYCIN LEVEL, [id number] 04:25:37 Test Item Value Reference Range Interpretation Comments VANCOMYCIN RANDOM (BEAKER) (test 19.5 ug/mL code = 523) Reference Range: No NormalsOperator ID - PEGGY LCBC W/PLT COUNT & AUTO [id number] 04:12:40 Test Item Value Reference Range Interpretation Comments WHITE BLOOD CELL COUNT (BEAKER) 8.7 K/ L 3.5-10.5 (test code = 775) RED BLOOD CELL COUNT (BEAKER) 3.14 M/ L 4.63-6.08 L (test code = 761) HEMOGLOBIN (BEAKER) (test code = 8.8 GM/DL 13.7-17.5 L 410) HEMATOCRIT (BEAKER) (test code = 29.4 % 40.1-51.0 L 411) MEAN CORPUSCULAR VOLUME (BEAKER) 93.6 fL 79.0-92.2 H (test code = 753) MEAN CORPUSCULAR HEMOGLOBIN 28.0 pg 25.7-32.2 (BEAKER) (test code = 751) MEAN CORPUSCULAR HEMOGLOBIN CONC 29.9 GM/DL 32.3-36.5 L (BEAKER) (test code = 752) RED CELL DISTRIBUTION WIDTH 15.5 % 11.6-14.4 H (BEAKER) (test code = 412) PLATELET COUNT (BEAKER) (test 279 K/CU MM 150-450 code = 756) MEAN PLATELET VOLUME (BEAKER) 9.5 fL 9.4-12.4 (test code = 754) NUCLEATED RED BLOOD CELLS 0 /100 WBC 0-0 (BEAKER) (test code = 413) NEUTROPHILS RELATIVE PERCENT 80 % (BEAKER) (test code = 429) LYMPHOCYTES RELATIVE PERCENT 9 % (BEAKER) (test code = 430) MONOCYTES RELATIVE PERCENT 7 % (BEAKER) (test code = 431) EOSINOPHILS RELATIVE PERCENT 3 % (BEAKER) (test code = 432) BASOPHILS RELATIVE PERCENT 1 % (BEAKER) (test code = 437) NEUTROPHILS ABSOLUTE COUNT 6.92 K/ L 1.78-5.38 H (BEAKER) (test code = 670) LYMPHOCYTES ABSOLUTE COUNT 0.79 K/ L 1.32-3.57 L (BEAKER) (test code = 414) MONOCYTES ABSOLUTE COUNT (BEAKER) 0.63 K/ L 0.30-0.82 (test code = 415) EOSINOPHILS ABSOLUTE COUNT 0.25 K/ L 0.04-0.54 (BEAKER) (test code = 416) BASOPHILS ABSOLUTE COUNT (BEAKER) 0.04 K/ L 0.01-0.08 (test code = 417) IMMATURE GRANULOCYTES-RELATIVE 1 % 0-1 PERCENT (BEAKER) (test code = 2801) POCT-GLUCOSE [id number] 21:20:50 Test Item Value Reference Range Interpretation Comments POC-GLUCOSE METER 174 mg/dL 70-110 H : TESTED A T [facility] 6720 (Aunt BerthaAKER) (test code = [facility] [employer] [facility], 153) [address]: Air Conditioning Installer/Techni glenis ID = [id number] for ALLISON DEXTER [id number] 16:24:21 Test Item Value Reference Range Interpretation Comments FERRITIN (BEAKER) (test code = 3548.12 ng/mL 5.00-275.00 H 361) Air Conditioning Installer ID - EMERSONOperator ID - EMERSONPOCT-GLUCOSE [id number] 13:57:44 Test Item Value Reference Range Interpretation Comments POC-GLUCOSE METER 109 mg/dL 70-110 : TESTED A T [facility] 6720 (Aunt BerthaAKER) (test code = [facility], 1538) [address]: Air Conditioning Installer/Techni glenis ID = [id number] for Jose Romeo POCT-GLUCOSE [id number] 12:40:51 Test Item Value Reference Range Interpretation Comments POC-GLUCOSE METER 28 mg/dL 70-110 LL : Notified RN/MD: TESTED (BEAKER) (test code = AT [facility] 6720 [facility] 1538) [facility], 770 [address]: Air Conditioning Installer/Techni glenis ID = [id number] for Maryann Chadwick (contract)Gera SPIN/CONCENTRATION [id number] 08:26:35 Test Item Value Reference Range Interpretation Comments CONCENTRATION CHARGED (BEAKER) (test Done code = 2657) POCT-GLUCOSE [id number] 08:07:45 Test Item Value Reference Range Interpretation Comments POC-GLUCOSE METER 188 mg/dL 70-110 H : Notified RN/MD: (BEAKER) (test code = TESTED AT [facility] 6720 1538) [facility], [address]: Air Conditioning Installer/Techni glenis ID = [id number] for Kiana (contract), Gera hdez BASIC METABOLIC [id number] 07:50:14 Test Item Value Reference Range Interpretation Comments SODIUM (BEAKER) 133 meq/L 136-145 L (test code = 381) POTASSIUM (BEAKER) 4.3 meq/L 3.5-5.1 (test code = 379) CHLORIDE (BEAKER) 96 meq/L 98-107 L (test code = 382) CO2 (BEAKER) (test 23 meq/L 22-29 code = 355) BLOOD UREA NITROGEN 42 mg/dL 7-21 H (BEAKER) (test code = 354) CREATININE (BEAKER) 5.81 mg/dL 0.57-1.25 H (test code = 358) GLUCOSE RANDOM 212 mg/dL 70-105 H (BEAKER) (test code = 652) CALCIUM (BEAKER) 9.2 mg/dL 8.4-10.2 (test code = 697) EGFR (BEAKER) (test 10 mL/min/1.73 ESTIMA FRANKLIN GFR IS code = 1092) sq m NOT ACCURATE CREATININE CLEARANCE IN PREDICTING GLOMERULAR FILTRATION RATE . ESTIMATED GFR I S NOT APPLICABLE FOR DIALYSIS PATIEN TS. Air Conditioning Installer ID - [id number] 07:44:43 Test Item Value Reference Range Interpretation Comments PHOSPHORUS (BEAKER) (test code = 3.9 mg/dL 2.3-4.7 604) Air Conditioning Installer ID - [id number] 07:44:42 Test Item Value Reference Range Interpretation Comments MAGNESIUM (BEAKER) (test code = 2.0 mg/dL 1.6-2.6 627) Air Conditioning Installer ID - ROSIANGCBC W/PLT COUNT & AUTO [id number] 07:10:09 Test Item Value Reference Range Interpretation Comments WHITE BLOOD CELL COUNT (BEAKER) 9.8 K/ L 3.5-10.5 (test code = 775) RED BLOOD CELL COUNT (BEAKER) 2.47 M/ L 4.63-6.08 L (test code = 761) HEMOGLOBIN (BEAKER) (test code = 6.8 GM/DL 13.7-17.5 L 410) HEMATOCRIT (BEAKER) (test code = 23.3 % 40.1-51.0 L 411) MEAN CORPUSCULAR VOLUME (BEAKER) 94.3 fL 79.0-92.2 H (test code = 753) MEAN CORPUSCULAR HEMOGLOBIN 27.5 pg 25.7-32.2 (BEAKER) (test code = 751) MEAN CORPUSCULAR HEMOGLOBIN CONC 29.2 GM/DL 32.3-36.5 L (BEAKER) (test code = 752) RED CELL DISTRIBUTION WIDTH 15.0 % 11.6-14.4 H (BEAKER) (test code = 412) PLATELET COUNT (BEAKER) (test 268 K/CU MM 150-450 code = 756) MEAN PLATELET VOLUME (BEAKER) 9.3 fL 9.4-12.4 L (test code = 754) NUCLEATED RED BLOOD CELLS 0 /100 WBC 0-0 (BEAKER) (test code = 413) NEUTROPHILS RELATIVE PERCENT 80 % (BEAKER) (test code = 429) LYMPHOCYTES RELATIVE PERCENT 8 % (BEAKER) (test code = 430) MONOCYTES RELATIVE PERCENT 9 % (BEAKER) (test code = 431) EOSINOPHILS RELATIVE PERCENT 2 % (BEAKER) (test code = 432) BASOPHILS RELATIVE PERCENT 1 % (BEAKER) (test code = 437) NEUTROPHILS ABSOLUTE COUNT 7.81 K/ L 1.78-5.38 H (BEAKER) (test code = 670) LYMPHOCYTES ABSOLUTE COUNT 0.77 K/ L 1.32-3.57 L (BEAKER) (test code = 414) MONOCYTES ABSOLUTE COUNT (BEAKER) 0.83 K/ L 0.30-0.82 H (test code = 415) EOSINOPHILS ABSOLUTE COUNT 0.23 K/ L 0.04-0.54 (BEAKER) (test code = 416) BASOPHILS ABSOLUTE COUNT (BEAKER) 0.05 K/ L 0.01-0.08 (test code = 417) IMMATURE GRANULOCYTES-RELATIVE 1 % 0-1 PERCENT (BEAKER) (test code = 2801) RAD, FOOT, MIN 3 VIEWS, [id number] 23:05:00Reason for exam:->s/p [facility]putationSA[facility]ENTERName: [facility]W BLACKMAN : 1965 Sex: MFINAL REPORT CLINICAL HISTORY: Status post indication COMPARISON: Same date at 1045 hours FINDINGS: 3 images of the left foot are submitted. There is a stable postoperative appearance of transmetatarsal indication of all 5 rays. Atherosclerotic calcifications are present in the ankle and foot. There is a partially visualized stent or bypass graft at the posterior left lower leg, ankle and foot. Signed: Gurwinder Sparrow MDRepwashington county memorial hospital Verified Date/Time: 2021 23:05:03 POCT-GLUCOSE [id number] 21:35:46 Test Item Value Reference Range Interpretation Comments POC-GLUCOSE METER 121 mg/dL 70-110 H : TESTED A T [facility] 6720 ([place]) (test code = JAKELESIA [place], 1538) [address]: Air Conditioning Installer/Techni glenis ID = [id number] for NICOLE MAR POCT-GLUCOSE [id number] 17:10:49 Test Item Value Reference Range Interpretation Comments POC-GLUCOSE METER 93 mg/dL 70-110 : TESTED A T [facility] 6720 (ALEYDA) (test code = BRENDA Prieto [place], 1538) [address]: Air Conditioning Installer/Techni glenis ID = [id number] for LARKIN ER, HIWITHA POCT-GLUCOSE [id number] 12:14:22 Test Item Value Reference Range Interpretation Comments POC-GLUCOSE METER 94 mg/dL 70-110 : [facility] (test code = BRENDA [place], 1538) [address]: Air Conditioning Installer/Techni glenis ID = [id number] for LARKIN ER, HIWITHA RAD, FOOT, MIN 3 VIEWS, [id number] 11:05:00Reason for exam:->4th toe wound, concern for osteomyelitisShould this be performed at the bedside?->Yes [facility] 1965 Sex: MFINAL REPORT RAD, FOOT, MIN 3 VIEWS, LEFT, RAD, FOOT, MIN 3 VIEWS, RIGHT INDICATION: post op COMPARISON: None TECHNIQUE: AP, lateral and oblique radiographs of the right and left foot FINDINGS/IMPRESSION:Left-sided: Status post transmetatarsal amputation. Mild subcutaneous emphysema remains. Bandaging material overlies the surgical margin. Right: Great toe distal phalanx tip is angulated toward the plantar surface with slight subluxation. Although this may be degenerative, dislocation cannot be excluded radiographically. Remainder of the osseous structures appearintact. Signed: Vicki Gaspar MDReport Verified Date/Time: 2021 11:05:06 Reading Location: [facility] Radiology Reading Room Electronically signed by: VICKI GASPAR MD on 2020 11:05 AMRAD, FOOT, MIN 3 VIEWS, [id number] 11:05:00Reason for exam:- >[facility]W BLACKMAN : 1965 Sex: MFINAL REPORT RAD, FOOT, MIN 3 VIEWS, LEFT, RAD, FOOT, MIN 3 VIEWS, RIGHT INDICATION: post op COMPARISON: None TECHNIQUE: AP, lateral and oblique radiographs of the right and left foot FINDINGS/IMPRESSION:Left-sided: Status post transmetatarsal amputation. Mild subcutaneous emphysema remains. Bandaging material overlies the surgical margin. Right: Great toe distal phalanx tip is angulated toward the plantar surface with slight subluxation. Although this may be degenerative, dislocation cannot be excluded radiographically. Remainder of the osseous structures appearintact. Signed: Vicki Gaspar MDReport Verified Date/Time: 2021 11:05:06 Reading Location: [facility] Radiology Reading Room Electronically signed by: VICKI GASPAR MD on 2020 11:05 AMPOCT-GLUCOSE [id number] 10:27:19 Test Item Value Reference Range Interpretation Comments POC-GLUCOSE METER 91 mg/dL 70-110 : [facility] ([employer] (test code = BRENDA Prieto [place], 1538) [address]: Air Conditioning Installer/Techni glenis ID = [id number] for BRANDEE SINGH POCT-GLUCOSE [id number] 07:29:40 Test Item Value Reference Range Interpretation Comments POC-GLUCOSE METER 91 mg/dL 70-110 : TESTED A T [facility] 6720 (BEAKER) (test code = BRENDA [place], 1538) [address]: Air Conditioning Installer/Techni glenis ID = [id number] for LENNY REVELES BASIC METABOLIC [id number] 05:56:27 Test Item Value Reference Range Interpretation Comments SODIUM (BEAKER) 137 meq/L 136-145 (test code = 381) POTASSIUM (BEAKER) 3.9 meq/L 3.5-5.1 (test code = 379) CHLORIDE (BEAKER) 97 meq/L 98-107 L (test code = 382) CO2 (BEAKER) (test 26 meq/L 22-29 code = 355) BLOOD UREA NITROGEN 28 mg/dL 7-21 H (BEAKER) (test code = 354) CREATININE (BEAKER) 4.36 mg/dL 0.57-1.25 H (test code = 358) GLUCOSE RANDOM 103 mg/dL 70-105 (BEAKER) (test code = 652) CALCIUM (BEAKER) 9.3 mg/dL 8.4-10.2 (test code = 697) EGFR (BEAKER) (test 14 mL/min/1.73 ESTIMA FRANKLIN GFR IS code = 1092) sq m NOT ACCURATE CREATININE CLEARANCE IN PREDICTING GLOMERULAR FILTRATION RATE . ESTIMATED GFR I S NOT APPLICABLE FOR DIALYSIS PATIEN TS. Air Conditioning Installer ID - KEVIN [id number] 05:55:42 Test Item Value Reference Range Interpretation Comments MAGNESIUM (BEAKER) (test code = 1.9 mg/dL 1.6-2.6 627) Air Conditioning Installer ID - KEVIN MCBC W/PLT COUNT & AUTO [id number] 05:14:53 Test Item Value Reference Range Interpretation Comments WHITE BLOOD CELL COUNT 10.1 K/ L 3.5-10.5 (BEAKER) (test code = 775) RED BLOOD CELL COUNT 2.58 M/ L 4.63-6.08 L (BEAKER) (test code = 761) HEMOGLOBIN (BEAKER) 7.2 GM/DL 13.7-17.5 L (test code = 410) HEMATOCRIT (BEAKER) 23.6 % 40.1-51.0 L (test code = 411) MEAN CORPUSCULAR 91.5 fL 79.0-92.2 Discordant MCV VOLUME (BEAKER) (test result s compared to code = 753) previous result s; clinical correl ation required. MEAN CORPUSCULAR 27.9 pg 25.7-32.2 HEMOGLOBIN (BEAKER) (test code = 751) MEAN CORPUSCULAR 30.5 GM/DL 32.3-36.5 L HEMOGLOBIN CONC (BEAKER) (test code = 752) RED CELL DISTRIBUTION 14.7 % 11.6-14.4 H WIDTH (BEAKER) (test code = 412) PLATELET COUNT 307 K/CU MM 150-450 (BEAKER) (test code = 756) MEAN PLATELET VOLUME 9.6 fL 9.4-12.4 (BEAKER) (test code = 754) NUCLEATED RED BLOOD 0 /100 WBC 0-0 CELLS (BEAKER) (test code = 413) NEUTROPHILS RELATIVE 79 % PERCENT (BEAKER) (test code = 429) LYMPHOCYTES RELATIVE 9 % PERCENT (BEAKER) (test code = 430) MONOCYTES RELATIVE 9 % PERCENT (BEAKER) (test code = 431) EOSINOPHILS RELATIVE 2 % PERCENT (BEAKER) (test code = 432) BASOPHILS RELATIVE 1 % PERCENT (BEAKER) (test code = 437) NEUTROPHILS ABSOLUTE 7.93 K/ L 1.78-5.38 H COUNT (BEAKER) (test code = 670) LYMPHOCYTES ABSOLUTE 0.87 K/ L 1.32-3.57 L COUNT (BEAKER) (test code = 414) MONOCYTES ABSOLUTE 0.93 K/ L 0.30-0.82 H COUNT (BEAKER) (test code = 415) EOSINOPHILS ABSOLUTE 0.21 K/ L 0.04-0.54 COUNT (BEAKER) (test code = 416) BASOPHILS ABSOLUTE 0.05 K/ L 0.01-0.08 COUNT (BEAKER) (test code = 417) IMMATURE 1 % 0-1 GRANULOCYTES-RELATIVE PERCENT (BEAKER) (test code = 2801) POCT-GLUCOSE [id number] 22:36:57 Test Item Value Reference Range Interpretation Comments POC-GLUCOSE METER 125 mg/dL 70-110 H : TESTED Izabela Lissy [facility] 6720 (BEAKER) (test code = BRENDA [place], 1538) [address]: Air Conditioning Installer/Techni glenis ID = [id number] for Jhoan tong (contract)Michael POCT-GLUCOSE [id number] 12:15:59 Test Item Value Reference Range Interpretation Comments POC-GLUCOSE METER 197 mg/dL 70-110 H : TESTED A T [facility] 6720 (ALEYDA) (test code = BR[place]DA [place], 1538) [address]: Air Conditioning Installer/Techni glenis ID = [id number] for LENNY PATTERSON [id number] 11:39:34 Test Item Value Reference Range Interpretation Comments PARTIAL THROMBOPLASTIN TIME 49.2 seconds 22.5-36.0 H (ALEYDA) (test code = 760) SARS-COV2/RT-PCR ([facility])2021-02-25 08:28:02 Test Item Value Reference Range Interpretation Comments SARS-COV2/RT-PCR Negative Negative The SARS-Co V-2 target (test code = nucleic acids a re not [id number]) detected in thi s specimen. Negative result s do not preclude SARS-C oV-2 infection and s hould not be used as the tre e basis for patient managem ent decisions. Nega tive results must be combine d with clinical observ ations, patient history , and epidemiological information. A false negativ e result may occur if a spec imen is improperly ari ected, transported or handled. This SARS CoV-2 test is a rapid, real-elisa e RT-PCR test intended for th e qualitative detection of nu cleic acid from SARS-CoV-2 in a nasopharyngeal swab specimen collected from individuals suspected of CO VID-19 by their healthcar e provider. This test has been authorized by FDA under an EUA for use by authorized laboratories. This test is only authorized for the duration of the declaration that circumstances exist justifying the authorization of emergency use of in vitro diagnostic tests for detection and/or diagnosis of COVID-19 under Section 564(b)(1) of the Federal Food, Drug and Cosmetic Act, 21 U.S.C. 360bbb- 3(b)(1), unless the authorization is terminated or revoked sooner. Fact Sheet for Healthcare Providers: https://www.[employer]/Documents/Xpert%20Xpress%20SARS%20CoV-2/Fact%20Sheets/204-7312%20SARS-COV -2%20HEALTHCARE%20PROVIDERS%20FACT%20SHEET.pdf Fact Sheet for Healthcare Patients: https://www.[employer]/Documents/Xpert %20Xpress%20SARS%20CoV-2/Fact%20Sheets/302-3801%21JJQP-PKX-7%20PATIENT%20FACT%20 SHEET.pdfPOCT-GLUCOSE [id number] 07:31:41 Test Item Value Reference Range Interpretation Comments POC-GLUCOSE METER 140 mg/dL 70-110 H : TESTED A T [facility] 6720 (BEAKER) (test code = BR[place], 1538) [address]: Air Conditioning Installer/Techni glenis ID = [id number] for HU NTER, HIWITHA HEPATITIS B SURFACE [id number] 05:19:14 Test Item Value Reference Range Interpretation Comments HEPATITIS B SURFACE ANTIGEN (2) Nonreactive Nonreactive (BEAKER) (test code = 2585) Specimen is considered negative for HBsAg.VANCOMYCIN LEVEL, [id number] 05:19:12 Test Item Value Reference Range Interpretation Comments VANCOMYCIN RANDOM (BEAKER) (test 8.4 ug/mL code = 523) Reference Range: No NormalsOperator ID - VICENTE WBASIC METABOLIC [id number] 05:00:16 Test Item Value Reference Range Interpretation Comments SODIUM (BEAKER) 132 meq/L 136-145 L (test code = 381) POTASSIUM (BEAKER) 4.1 meq/L 3.5-5.1 (test code = 379) CHLORIDE (BEAKER) 94 meq/L 98-107 L (test code = 382) CO2 (BEAKER) (test 23 meq/L 22-29 code = 355) BLOOD UREA NITROGEN 45 mg/dL 7-21 H (BEAKER) (test code = 354) CREATININE (BEAKER) 6.56 mg/dL 0.57-1.25 H (test code = 358) GLUCOSE RANDOM 161 mg/dL 70-105 H (BEAKER) (test code = 652) CALCIUM (BEAKER) 9.4 mg/dL 8.4-10.2 (test code = 697) EGFR (BEAKER) (test 9 mL/min/1.73 ESTIMAT ED GFR IS code = 1092) sq m NOT ACCURATE CREATININE CLEARANCE IN PREDICTING GLOMERULAR FILTRATION RATE . ESTIMATED GFR I S NOT APPLICABLE FOR DIALYSIS PATIEN TS. Air Conditioning Installer ID - VICENTE [id number] 04:54:20 Test Item Value Reference Range Interpretation Comments MAGNESIUM (BEAKER) (test code = 1.9 mg/dL 1.6-2.6 627) Air Conditioning Installer ID Karan [id number] 04:31:45 Test Item Value Reference Range Interpretation Comments PARTIAL THROMBOPLASTIN TIME 63.7 seconds 22.5-36.0 H (BEAKER) (test code = 760) CBC W/PLT COUNT & AUTO [id number] 04:26:00 Test Item Value Reference Range Interpretation Comments WHITE BLOOD CELL COUNT (BEAKER) 12.0 K/ L 3.5-10.5 H (test code = 775) RED BLOOD CELL COUNT (BEAKER) 2.36 M/ L 4.63-6.08 L (test code = 761) HEMOGLOBIN (BEAKER) (test code = 6.6 GM/DL 13.7-17.5 L 410) HEMATOCRIT (BEAKER) (test code = 22.6 % 40.1-51.0 L 411) MEAN CORPUSCULAR VOLUME (BEAKER) 95.8 fL 79.0-92.2 H (test code = 753) MEAN CORPUSCULAR HEMOGLOBIN 28.0 pg 25.7-32.2 (BEAKER) (test code = 751) MEAN CORPUSCULAR HEMOGLOBIN CONC 29.2 GM/DL 32.3-36.5 L (BEAKER) (test code = 752) RED CELL DISTRIBUTION WIDTH 14.5 % 11.6-14.4 H (BEAKER) (test code = 412) PLATELET COUNT (BEAKER) (test 283 K/CU MM 150-450 code = 756) MEAN PLATELET VOLUME (BEAKER) 9.8 fL 9.4-12.4 (test code = 754) NUCLEATED RED BLOOD CELLS 0 /100 WBC 0-0 (BEAKER) (test code = 413) NEUTROPHILS RELATIVE PERCENT 84 % (BEAKER) (test code = 429) LYMPHOCYTES RELATIVE PERCENT 8 % (BEAKER) (test code = 430) MONOCYTES RELATIVE PERCENT 4 % (BEAKER) (test code = 431) EOSINOPHILS RELATIVE PERCENT 3 % (BEAKER) (test code = 432) BASOPHILS RELATIVE PERCENT 0 % (BEAKER) (test code = 437) NEUTROPHILS ABSOLUTE COUNT 10.03 K/ L 1.78-5.38 H (BEAKER) (test code = 670) LYMPHOCYTES ABSOLUTE COUNT 1.00 K/ L 1.32-3.57 L (BEAKER) (test code = 414) MONOCYTES ABSOLUTE COUNT (BEAKER) 0.52 K/ L 0.30-0.82 (test code = 415) EOSINOPHILS ABSOLUTE COUNT 0.33 K/ L 0.04-0.54 (BEAKER) (test code = 416) BASOPHILS ABSOLUTE COUNT (BEAKER) 0.05 K/ L 0.01-0.08 (test code = 417) IMMATURE GRANULOCYTES-RELATIVE 1 % 0-1 PERCENT (BEAKER) (test code = 2801) POCT-GLUCOSE [id number] 21:39:29 Test Item Value Reference Range Interpretation Comments POC-GLUCOSE METER 135 mg/dL 70-110 H : TESTED A T [facility] 6720 (BEAKER) (test code [facility], = 1538) [id number]: Air Conditioning Installer/Techni glenis ID = [id number] for Humphrey (co ntract)Agueda [id number] 21:18:22 Test Item Value Reference Range Interpretation Comments PARTIAL THROMBOPLASTIN TIME 52.8 seconds 22.5-36.0 H (BEAKER) (test code = 760) HEPATITIS B SURFACE [id number] 20:25:17 Test Item Value Reference Range Interpretation Comments HEPATITIS B SURFACE ANTIGEN (2) Nonreactive Nonreactive (BEAKER) (test code = 2585) Specimen is considered negative for HBsAg.POCT-GLUCOSE [id number] 17:01:49 Test Item Value Reference Range Interpretation Comments POC-GLUCOSE METER 154 mg/dL 70-110 H : TESTED A T [facility] 6720 (BEAKER) (test code = [facility], 1538) [id number]: Air Conditioning Installer/Techni glenis ID = [id number] for Do minguez, Marquis POCT-GLUCOSE [id number] 12:12:11 Test Item Value Reference Range Interpretation Comments POC-GLUCOSE METER 166 mg/dL 70-110 H : TESTED A T [facility] 6720 (BEAKER) (test code = [facility], 1538) [id number]: Air Conditioning Installer/Techni glenis ID = [id number] for Do minguez, Marquis [id number] 11:11:47 Test Item Value Reference Range Interpretation Comments PARTIAL THROMBOPLASTIN TIME 56.1 seconds 22.5-36.0 H (BEAKER) (test code = 760) POCT-GLUCOSE [id number] 08:02:32 Test Item Value Reference Range Interpretation Comments POC-GLUCOSE METER 224 mg/dL 70-110 H : TESTED A T [facility] 6720 (BEAKER) (test code = BRENDA RAMIRE[place], 1538) [address]: Air Conditioning Installer/Techni glenis ID = [id number] for Marquis [place] BASIC METABOLIC [id number] 04:35:15 Test Item Value Reference Range Interpretation Comments SODIUM (BEAKER) 132 meq/L 136-145 L (test code = 381) POTASSIUM (BEAKER) 3.7 meq/L 3.5-5.1 (test code = 379) CHLORIDE (BEAKER) 95 meq/L 98-107 L (test code = 382) CO2 (BEAKER) (test 24 meq/L 22-29 code = 355) BLOOD UREA NITROGEN 35 mg/dL 7-21 H (BEAKER) (test code = 354) CREATININE (BEAKER) 5.52 mg/dL 0.57-1.25 H (test code = 358) GLUCOSE RANDOM 280 mg/dL 70-105 H (BEAKER) (test code = 652) CALCIUM (BEAKER) 9.4 mg/dL 8.4-10.2 (test code = 697) EGFR (BEAKER) (test 11 mL/min/1.73 ESTIMA FRANKLIN GFR IS code = 1092) sq m NOT ACCURATE CREATININE CLEARANCE IN PREDICTING GLOMERULAR FILTRATION RATE . ESTIMATED GFR I S NOT APPLICABLE FOR DIALYSIS PATIEN TS. Air Conditioning Installer ID - VICENTE [id number] 04:31:09 Test Item Value Reference Range Interpretation Comments MAGNESIUM (BEAKER) (test code = 1.9 mg/dL 1.6-2.6 627) Air Conditioning Installer ID - VICENTE [id number] 04:03:17 Test Item Value Reference Range Interpretation Comments PARTIAL THROMBOPLASTIN TIME 56.0 seconds 22.5-36.0 H (BEAKER) (test code = 760) PROTHROMBIN [id number] 04:02:14 Test Item Value Reference Range Interpretation Comments PROTIME (BEAKER) 17.0 seconds 11.9-14.2 H (test code = 759) INR (BEAKER) (test 1.40 See_Comment [Automat ed message] code = 370) The system [employer] generated this result transmitted ref erence range: <=5.90. The reference range was not used to int erpret this result as normal/abnormal . RECOMMENDED COUMADIN/WARFARIN INR THERAPY RANGESSTANDARD DOSE: 2.0 - 3.0 Includes: PROPHYLAXIS forvenous thrombosis, systemic embolization; TREATMENT for venous thrombosis and/or pulmonary embolus.HIGH RISK: Target INR is 2.5-3.5 for patients with mechanical heart valves.CBC W/PLT COUNT & AUTO DIFFERENTIAL 2021-02-24 03:56:13 Test Item Value Reference Range Interpretation Comments WHITE BLOOD CELL COUNT (BEAKER) 15.4 K/ L 3.5-10.5 H (test code = 775) RED BLOOD CELL COUNT (BEAKER) 2.31 M/ L 4.63-6.08 L (test code = 761) HEMOGLOBIN (BEAKER) (test code = 6.6 GM/DL 13.7-17.5 L 410) HEMATOCRIT (BEAKER) (test code = 21.6 % 40.1-51.0 L 411) MEAN CORPUSCULAR VOLUME (BEAKER) 93.5 fL 79.0-92.2 H (test code = 753) MEAN CORPUSCULAR HEMOGLOBIN 28.6 pg 25.7-32.2 (BEAKER) (test code = 751) MEAN CORPUSCULAR HEMOGLOBIN CONC 30.6 GM/DL 32.3-36.5 L (BEAKER) (test code = 752) RED CELL DISTRIBUTION WIDTH 13.9 % 11.6-14.4 (BEAKER) (test code = 412) PLATELET COUNT (BEAKER) (test 254 K/CU MM 150-450 code = 756) MEAN PLATELET VOLUME (BEAKER) 9.4 fL 9.4-12.4 (test code = 754) NUCLEATED RED BLOOD CELLS 0 /100 WBC 0-0 (BEAKER) (test code = 413) NEUTROPHILS RELATIVE PERCENT 87 % (BEAKER) (test code = 429) LYMPHOCYTES RELATIVE PERCENT 5 % (BEAKER) (test code = 430) MONOCYTES RELATIVE PERCENT 6 % (BEAKER) (test code = 431) EOSINOPHILS RELATIVE PERCENT 1 % (BEAKER) (test code = 432) BASOPHILS RELATIVE PERCENT 0 % (BEAKER) (test code = 437) NEUTROPHILS ABSOLUTE COUNT 13.35 K/ L 1.78-5.38 H (BEAKER) (test code = 670) LYMPHOCYTES ABSOLUTE COUNT 0.80 K/ L 1.32-3.57 L (BEAKER) (test code = 414) MONOCYTES ABSOLUTE COUNT (BEAKER) 0.85 K/ L 0.30-0.82 H (test code = 415) EOSINOPHILS ABSOLUTE COUNT 0.16 K/ L 0.04-0.54 (BEAKER) (test code = 416) BASOPHILS ABSOLUTE COUNT (BEAKER) 0.04 K/ L 0.01-0.08 (test code = 417) IMMATURE GRANULOCYTES-RELATIVE 1 % 0-1 PERCENT (BEAKER) (test code = 2801) CBC W/PLT COUNT & AUTO [id number] 17:42:00 Test Item Value Reference Range Interpretation Comments WHITE BLOOD CELL COUNT (BEAKER) 8.2 K/ L 3.5-10.5 (test code = 775) RED BLOOD CELL COUNT (BEAKER) 2.54 M/ L 4.63-6.08 L (test code = 761) HEMOGLOBIN (BEAKER) (test code = 7.6 GM/DL 13.7-17.5 L 410) HEMATOCRIT (BEAKER) (test code = 26.1 % 40.1-51.0 L 411) MEAN CORPUSCULAR VOLUME (BEAKER) 102.8 fL 79.0-92.2 H (test code = 753) MEAN CORPUSCULAR HEMOGLOBIN 29.9 pg 25.7-32.2 (BEAKER) (test code = 751) MEAN CORPUSCULAR HEMOGLOBIN CONC 29.1 GM/DL 32.3-36.5 L (BEAKER) (test code = 752) RED CELL DISTRIBUTION WIDTH 13.4 % 11.6-14.4 (BEAKER) (test code = 412) PLATELET COUNT (BEAKER) (test 303 K/CU MM 150-450 code = 756) MEAN PLATELET VOLUME (BEAKER) 8.9 fL 9.4-12.4 L (test code = 754) NEUTROPHILS RELATIVE PERCENT 75 % (BEAKER) (test code = 429) LYMPHOCYTES RELATIVE PERCENT 13 % (BEAKER) (test code = 430) MONOCYTES RELATIVE PERCENT 11 % (BEAKER) (test code = 431) EOSINOPHILS RELATIVE PERCENT 1 % (BEAKER) (test code = 432) BASOPHILS RELATIVE PERCENT 0 % (BEAKER) (test code = 437) NEUTROPHILS ABSOLUTE COUNT 6.14 K/ L 1.78-5.38 H (BEAKER) (test code = 670) LYMPHOCYTES ABSOLUTE COUNT 1.05 K/ L 1.32-3.57 L (BEAKER) (test code = 414) MONOCYTES ABSOLUTE COUNT (BEAKER) 0.90 K/ L 0.30-0.82 H (test code = 415) EOSINOPHILS ABSOLUTE COUNT 0.10 K/ L 0.04-0.54 (BEAKER) (test code = 416) BASOPHILS ABSOLUTE COUNT (BEAKER) 0.01 K/ L 0.01-0.08 (test code = 417) IMMATURE GRANULOCYTES-RELATIVE 0 % 0-1 PERCENT (BEAKER) (test code = 2801) PLATELET AGGREGATION: DRUG [id number] 08:29:00 Test Item Value Reference Range Interpretation Comments ARACHADONIC ACID 7 % 63-89 L RESULT(BEAKER) (test code = 2138) PLATELET AGG DRUG Decreased response to INTERPRETATION (BEAKER) arachidonic acid (test code = 2408) suggests aspirin-like effect. PLATELET AGG DRUG Decreased aggregation INTERPRETATION (BEAKER) with ADP which (test code = 388726) indicates platelet dysfunction that may be due to medication effect, uremia, or other platelet function disorders. Clinical correlation is required. [id number] Brody Gaytan MD (BEAKER) (test code = (electronic 2621) signature) PLATELET COUNT AGG 237 K/CU MM 150-450 (BEAKER) (test code = 2656) ADP (BEAKER) (test code 21 % 62-100 L = 4654) PLATELET RICH 254 k/cu mm 200-300 PLASMA(BEAKER) (test code = 2134) Platelet function studies by aggregation methodology on samples with platelet count <75,000/CU MMare unreliable; platelet function assessment should not be based on a single test.Air Conditioning Installer ID - [id number] B SURFACE [id number] 11:27:00 Test Item Value Reference Range Interpretation Comments HEPATITIS B SURFACE ANTIGEN (2) Nonreactive Nonreactive (BEAKER) (test code = 2585) Specimen is considered negative for HBsAg.BASIC METABOLIC [id number] 11:22:00 Test Item Value Reference Range Interpretation Comments SODIUM (BEAKER) 135 meq/L 136-145 L (test code = 381) POTASSIUM (BEAKER) 5.2 meq/L 3.5-5.1 H (test code = 379) CHLORIDE (BEAKER) 99 meq/L 98-107 (test code = 382) CO2 (BEAKER) (test 23 meq/L 22-29 code = 355) BLOOD UREA NITROGEN 30 mg/dL 7-21 H (BEAKER) (test code = 354) CREATININE (BEAKER) 9.05 mg/dL 0.57-1.25 H (test code = 358) GLUCOSE RANDOM 101 mg/dL 70-105 (BEAKER) (test code = 652) CALCIUM (BEAKER) 9.0 mg/dL 8.4-10.2 (test code = 697) EGFR (BEAKER) (test 6 mL/min/1.73 ESTIMAT ED GFR IS code = 1092) sq m NOT ACCURATE CREATININE CLEARANCE IN PREDICTING GLOMERULAR FILTRATION RATE . ESTIMATED GFR I S NOT APPLICABLE FOR DIALYSIS PATIEN TS. Air Conditioning Installer ID - KEVIN MCBC W/PLT COUNT & AUTO [id number] 10:42:00 Test Item Value Reference Range Interpretation Comments WHITE BLOOD CELL COUNT (BEAKER) 7.7 K/ L 3.5-10.5 (test code = 775) RED BLOOD CELL COUNT (BEAKER) 2.94 M/ L 4.63-6.08 L (test code = 761) HEMOGLOBIN (BEAKER) (test code = 8.7 GM/DL 13.7-17.5 L 410) HEMATOCRIT (BEAKER) (test code = 29.8 % 40.1-51.0 L 411) MEAN CORPUSCULAR VOLUME (BEAKER) 101.4 fL 79.0-92.2 H (test code = 753) MEAN CORPUSCULAR HEMOGLOBIN 29.6 pg 25.7-32.2 (BEAKER) (test code = 751) MEAN CORPUSCULAR HEMOGLOBIN CONC 29.2 GM/DL 32.3-36.5 L (BEAKER) (test code = 752) RED CELL DISTRIBUTION WIDTH 13.3 % 11.6-14.4 (BEAKER) (test code = 412) PLATELET COUNT (BEAKER) (test 228 K/CU MM 150-450 code = 756) MEAN PLATELET VOLUME (BEAKER) 8.8 fL 9.4-12.4 L (test code = 754) NUCLEATED RED BLOOD CELLS 0 /100 WBC 0-0 (BEAKER) (test code = 413) NEUTROPHILS RELATIVE PERCENT 80 % (BEAKER) (test code = 429) LYMPHOCYTES RELATIVE PERCENT 11 % (BEAKER) (test code = 430) MONOCYTES RELATIVE PERCENT 6 % (BEAKER) (test code = 431) EOSINOPHILS RELATIVE PERCENT 2 % (BEAKER) (test code = 432) BASOPHILS RELATIVE PERCENT 1 % (BEAKER) (test code = 437) NEUTROPHILS ABSOLUTE COUNT 6.13 K/ L 1.78-5.38 H (BEAKER) (test code = 670) LYMPHOCYTES ABSOLUTE COUNT 0.86 K/ L 1.32-3.57 L (BEAKER) (test code = 414) MONOCYTES ABSOLUTE COUNT (BEAKER) 0.48 K/ L 0.30-0.82 (test code = 415) EOSINOPHILS ABSOLUTE COUNT 0.14 K/ L 0.04-0.54 (BEAKER) (test code = 416) BASOPHILS ABSOLUTE COUNT (BEAKER) 0.04 K/ L 0.01-0.08 (test code = 417) IMMATURE GRANULOCYTES-RELATIVE 0 % 0-1 PERCENT (BEAKER) (test code = 2801) [id number] 19:51:00 Test Item Value Reference Range Interpretation Comments ACTIVATED CLOTTING TIME 136 sec : 74 -137 seconds, (BEAKER) (test code = Mariah ne: TESTED AT 441) [facility] 6720 [facility], 7[address] 30: Air Conditioning Installer/Techni glenis ID = [id number] for CHEVY CHAVIRA POCT-GLUCOSE [id number] 19:35:00 Test Item Value Reference Range Interpretation Comments POC-GLUCOSE METER 95 mg/dL 70-110 : TESTED A T [facility] 6720 (BEAKER) (test code = [facility], 1538) [address]: Air Conditioning Installer/Techni glenis ID = [id number] for JOSE ARMANDO GARCIA, CHEVY [id number] 16:51:00 Test Item Value Reference Range Interpretation Comments ACTIVATED CLOTTING TIME 219 sec : 74 -137 seconds, (BEAKER) (test code = Baseli ne: TESTED AT 441) [facility] 67[address] [facility], 770 30: Air Conditioning Installer/Techni glenis ID = [id number] for HI EMILY, MORELIA [id number] 15:13:00 Test Item Value Reference Range Interpretation Comments ACTIVATED CLOTTING TIME 180 sec : 74 -137 seconds, (BEAKER) (test code = Baseli ne: TESTED AT 441) [place] [id number] [facility], [facility] 30: Air Conditioning Installer/Techni glenis ID = [id number] for AL FATIMAH, CHARLY POCT-GLUCOSE [id number] 14:58:00 Test Item Value Reference Range Interpretation Comments POC-GLUCOSE METER 73 mg/dL 70-110 : TESTED A T [facility] 6720 (BEAKER) (test code = [facility], 153) [address]: Air Conditioning Installer/Techni glenis ID = [id number] for CISN EROS, ANNA POCT-GLUCOSE [id number] 12:36:00 Test Item Value Reference Range Interpretation Comments POC-GLUCOSE METER 76 mg/dL 70-110 : TESTED A T [facility] 6720 (BEAKER) (test code = [facility], 153) [address]: Air Conditioning Installer/Techni glenis ID = [id number] for CISN EROS, ANNA [id number] 11:20:00 Test Item Value Reference Range Interpretation Comments ACTIVATED CLOTTING TIME 235 sec : 74 -137 seconds, (BEAKER) (test code = Baseli ne: TESTED AT 441) [place] [id number] [facility], [facility] 30: Air Conditioning Installer/Techni glenis ID = [id number] for HI EMILY, MORELIA [id number] 11:02:00 Test Item Value Reference Range Interpretation Comments ACTIVATED CLOTTING TIME 274 sec : 74 -137 seconds, (BEAKER) (test code = Baseli ne: TESTED AT 441) [address], [facility] 30: Air Conditioning Installer/Techni glenis ID = [id number] for HI EMILY, MORELIA BASIC METABOLIC [id number] 09:00:00 Test Item Value Reference Range Interpretation Comments SODIUM (BEAKER) 135 meq/L 136-145 L (test code = 381) POTASSIUM (BEAKER) 4.1 meq/L 3.5-5.1 (test code = 379) CHLORIDE (BEAKER) 99 meq/L 98-107 (test code = 382) CO2 (BEAKER) (test 23 meq/L 22-29 code = 355) BLOOD UREA NITROGEN 22 mg/dL 7-21 H (BEAKER) (test code = 354) CREATININE (BEAKER) 7.21 mg/dL 0.57-1.25 H (test code = 358) GLUCOSE RANDOM 94 mg/dL 70-105 (BEAKER) (test code = 652) CALCIUM (BEAKER) 9.8 mg/dL 8.4-10.2 (test code = 697) EGFR (BEAKER) (test 8 mL/min/1.73 ESTIMAT ED GFR IS code = 1092) sq m NOT ACCURATE CREATININE CLEARANCE IN PREDICTING GLOMERULAR FILTRATION RATE . ESTIMATED GFR I S NOT APPLICABLE FOR DIALYSIS PATIEN TS. Air Conditioning Installer ID - BSOperator ID - [id number] (HEMOGRAM ONLY)2020-12-28 08:16:00 Test Item Value Reference Range Interpretation Comments WHITE BLOOD CELL COUNT (BEAKER) 9.2 K/ L 3.5-10.5 (test code = 775) RED BLOOD CELL COUNT (BEAKER) 3.26 M/ L 4.63-6.08 L (test code = 761) HEMOGLOBIN (BEAKER) (test code = 9.8 GM/DL 13.7-17.5 L 410) HEMATOCRIT (BEAKER) (test code = 32.4 % 40.1-51.0 L 411) MEAN CORPUSCULAR VOLUME (BEAKER) 99.4 fL 79.0-92.2 H (test code = 753) MEAN CORPUSCULAR HEMOGLOBIN 30.1 pg 25.7-32.2 (BEAKER) (test code = 751) MEAN CORPUSCULAR HEMOGLOBIN CONC 30.2 GM/DL 32.3-36.5 L (BEAKER) (test code = 752) RED CELL DISTRIBUTION WIDTH 13.3 % 11.6-14.4 (BEAKER) (test code = 412) PLATELET COUNT (BEAKER) (test 233 K/CU MM 150-450 code = 756) MEAN PLATELET VOLUME (BEAKER) 8.9 fL 9.4-12.4 L (test code = 754) NUCLEATED RED BLOOD CELLS 0 /100 WBC 0-0 (BEAKER) (test code = 413) SARS-COV2/RT-PCR ([facility])2020-12-24 18:29:00 Test Item Value Reference Range Interpretation Comments SARS-COV2/RT-PCR (test Negative Not Detected, Negative, code = 0878698) See external report for linked test SARS-COV-2 PERFORMING LAB [facility] ARTURO (test code = 4204952) Negative result for this test determines that SARS-CoV-2 RNA was not present in the specimen above the Limit of Detection (LOD). However, Negative results do not preclude SARS-CoV-2 infection and should not be used as the sole basis for treatment or patient management decisions. Negative results mustbe combined with clinical observations, patient history, and epidemiological information. A false negative result may occur if a specimen is improperly collected, transported or handled. A false negative result should be considered if patient's recent exposures or clinical presentation indicate that COVID-19 (SARS-CoV-2) is likely and diagnostic tests for other causes of illness are negative. Re-testing should be considered in cases of suspected false negatives.The limit of detection for this assay is 800 copies/mL.This SARS CoV-2 test is a real-time RT-PCR test intended for the qualitative detection of nucleic acid from SARS-CoV-2 in a nasopharyngeal swab specimen collected from individuals susp ected of COVID-19 by their healthcare provider.This test has not been Food and Drug Administration (FDA) cleared or approved. This is a modified version of an approved Emergency Use Authorization (EUA) and is in the process of review by the FDA. Once authorized by the FDA, the issued EUA will be effective until the declaration that circumstances exist justifying the authorization of the emergency use of in vitro diagnostic tests for detection and/or diagnosis of COVID-19 is terminated under Section 564(b)(2) of the Act or the EUA is revoked under Section 564(g) of the Act.Fact Sheet for Healthcare Providers:https://www.[employer]/sites/default/files/product/documents/Fact_Shee i_SR_Fnjhpuxjj_Auts_XDBR-AvR-7.pdfFact Sheet for Healthcare Patients:https://www.[employer].com/sites/default/files/product/ documents/Hagx_Btbrq_Mgysjdld_Ujtb_RHEX-ErW-9.pdfPerforming Laboratory:[facility], [place] [address]DWJ, FOOT, MIN 3 VIEWS, [id number] 09:56:00Reason for Exam:->Gangrene of both feet [facility] 1965 Sex: MFINAL REPORT EXAMINATION: RAD, FOOT, MIN 3 VIEWS, RIGHT, RAD, FOOT, MIN 3 VIEWS, LEFT INDICATION: Gangrene of both feet COMPARISON: None DISCUSSION: Rightfoot:No acute displaced fracture. No focal osseous erosion or destruction.No joint malalignment or dislocation. Minimal degenerative changes throughout the midfoot joints.Scattered vascular calcifications. Left foot:Irregularity at the tuft of the great toe distal phalanx with well corticated margins. No focal osseous erosion or destruction.No joint malalignment or dislocation. Minimal degenerative changes throughout the midfoot joints. Subtle posterior and plantar calcaneal enthesophytes.Scatteredvascular calcifications. IMPRESSION: No osseous evidence of acute osteomyelitis. If clinical signs of osteomyelitis persist with routine care, recommend repeat radiographs in 6 weeks. Signed: Gerber Merrill MDReport Verified Date/Time: 12/18/2020 09:56:08 Reading Location: [facility] Reading Room [address] [place] [address] RAD, FOOT, MIN 3 VIEWS, [id number] 09:56:00Reason for Exam:->[facility]rene [facility] : 1965 Sex: MFINAL REPORT EXAMINATION: RAD, FOOT, MIN 3 VIEWS, RIGHT, RAD, FOOT, MIN 3 VIEWS, LEFT INDICATION: Gangrene of both feet COMPARISON: None DISCUSSION: Rightfoot:No acute displaced fracture. No focal osseous erosion or destruction.No joint malalignment or dislocation. Minimal degenerative changes throughout the midfoot joints.Scattered vascular calcifications. Left foot:Irregularity at the tuft of the great toe distal phalanx with well corticated margins. No focal osseous erosion or destruction.No joint malalignment or dislocation. Minimal degenerative changes throughout the midfoot joints. Subtle posterior and plantar calcaneal enthesophytes.Scatteredvascular calcifications. IMPRESSION: No osseous evidence of acute osteomyelitis. If clinical signs of osteomyelitis persist with routine care, recommend repeat radiographs in 6 weeks. Signed: Gerber Merrill MDReport Verified Date/Time: 12/18/2020 09:56:08 Reading Location: [facility] Reading Room [address] [place] [address] CT, BRAIN, WITHOUT IV [id number] 16:12:00Unlisted Reason for Exam - Click Yes and Enter Reason Below->No [facility] : 1965 Sex: MFINAL REPORT EXAMINATION: Head CT HISTORY: Head trauma, painCOMP FABRICIO: Head CT 11/10/2018TECHNIQUE: Multidetector axial images were obtained without contrast from the foramen magnum to the vertex. Dose modulation, iterative reconstruction, and/or weight based adjustment of the mA/kV was utilized to reduce the radiation dose to as low as reasonably achievable. FINDI NGS: Parenchyma: 1.Unchanged small chronic lacunar infarcts in the bilateral thalami and right lentiform nucleus.2.Again noted mild chronic microvascular ischemic changes.3.No mass or hemorrhage. No CT evidence of acute territorial vascular insult. Extra-axial spaces:No abnormal density.No extra-axial fluid collections Brain volume: Normal for age. Ventricles: No hydrocephalus or displacement. Arteries: No density suggestive of thrombus. Dural sinuses: No abnormaldensity. Extra-axial spaces: No abnormal density. Foramen magnum: No mass, Chiari malformation, or basilar invagination. Sella: No obvious mass. Paranasal/mastoid sinuses: Imaged portions unremarkable. Skull/Scalp: No lytic or blastic lesions. No fractures. Orbits: Again noted radiopaque injection in the right globe. IMPRESSION: 1.No acute post traumatic intracranial he morrhage.2.Mild chronic microvascular ischemic changes and small chronic lacunar infarcts in the deep healy nuclei, unchanged from CT of 11/10/2018. Signed: Diana Aguilar MDReport Verified Date/Time: 12/17/2020 16:12:05 Reading Location: [facility] Room [address] [place] [address] BLOOD [id number] 19:01:00 Test Item Value Reference Range Interpretation Comments CULTURE (BEAKER) (test No growth in 5 days code = 1095) PROTEIN ELECTROPHORESIS, [id number] 13:58:00 Test Item Value Reference Range Interpretation Comments ALBUMIN FRACTION 3.0 gm/dL 3.5-5.5 L (BEAKER) (test code = 405) ALPHA 1 FRACTION 0.3 gm/dL 0.2-0.4 (BEAKER) (test code = 389) ALPHA 2 FRACTION 1.0 gm/dL 0.5-0.9 H (BEAKER) (test code = 390) BETA FRACTION (BEAKER) 1.1 gm/dL 0.6-1.1 (test code = 392) GAMMA GLOBULIN 1.0 gm/dL 0.7-1.7 FRACTION (BEAKER) (test code = 391) INTERPRETATION-119 Alpha-2 globulins (BEAKER) (test code = increased. This 2615) suggests an increase in alpha-2 macroglobulins. A non-specific change that may be associated with diabetes mellitus. No monoclonal bands identified. [id number] Christin Dugan MD (BEAKER) (test code = (electronic signature) 2616) PROTEIN TOTAL SERUM, 6.4 gm/dL 6.0-8.3 SPEP (BEAKER) (test code = 2660) Air Conditioning Installer ID - PIAYA LBLOOD [id number] 06:00:00 Test Item Value Reference Range Interpretation Comments CULTURE (BEAKER) (test No growth in 5 days code = 1095) POCT-GLUCOSE [id number] 17:32:00 Test Item Value Reference Range Interpretation Comments POC-GLUCOSE METER 93 mg/dL 70-110 : TESTED A T [facility] 6720 (BEAKER) (test code = [facility], 153) [address]: Air Conditioning Installer/Techni glenis ID = [id number] for Tali Brown HEPATITIS B SURFACE [id number] 14:38:00 Test Item Value Reference Range Interpretation Comments HEPATITIS B SURFACE ANTIGEN (2) Nonreactive Nonreactive (BEAKER) (test code = 2585) Specimen is considered negative for HBsAg.POCT-GLUCOSE [id number] 12:13:00 Test Item Value Reference Range Interpretation Comments POC-GLUCOSE METER 136 mg/dL 70-110 H : TESTED A T [facility] 6720 (BEAKER) (test code = [facility] Conner [facility], 153) [address]: Air Conditioning Installer/Techni glenis ID = [id number] for ROSELIA RANDALLLAINE AUGUST POCT-GLUCOSE [id number] 08:17:00 Test Item Value Reference Range Interpretation Comments POC-GLUCOSE METER 137 mg/dL 70-110 H : TESTED A T [facility] 6720 (BEAKER) (test code = [place], 1538) [address]: Air Conditioning Installer/Techni glenis ID = [id number] for AUGUST BARBOSA BASIC METABOLIC [id number] 05:46:00 Test Item Value Reference Range Interpretation Comments SODIUM (BEAKER) 135 meq/L 136-145 L (test code = 381) POTASSIUM (BEAKER) 4.8 meq/L 3.5-5.1 (test code = 379) CHLORIDE (BEAKER) 96 meq/L 98-107 L (test code = 382) CO2 (BEAKER) (test 22 meq/L 22-29 code = 355) BLOOD UREA NITROGEN 42 mg/dL 7-21 H (BEAKER) (test code = 354) CREATININE (BEAKER) 8.68 mg/dL 0.57-1.25 H (test code = 358) GLUCOSE RANDOM 124 mg/dL 70-105 H (BEAKER) (test code = 652) CALCIUM (BEAKER) 9.7 mg/dL 8.4-10.2 (test code = 697) EGFR (BEAKER) (test 6 mL/min/1.73 ESTIMAT ED GFR IS code = 1092) sq m NOT ACCURATE CREATININE CLEARANCE IN PREDICTING GLOMERULAR FILTRATION RATE . ESTIMATED GFR I S NOT APPLICABLE FOR DIALYSIS PATIEN TS. Air Conditioning Installer ID - PEGGY [id number] 05:21:00 Test Item Value Reference Range Interpretation Comments MAGNESIUM (BEAKER) (test code = 2.1 mg/dL 1.6-2.6 627) Air Conditioning Installer ID - PEGGY LCBC W/PLT COUNT & AUTO [id number] 04:45:00 Test Item Value Reference Range Interpretation Comments WHITE BLOOD CELL COUNT (BEAKER) 6.0 K/ L 3.5-10.5 (test code = 775) RED BLOOD CELL COUNT (BEAKER) 3.47 M/ L 4.63-6.08 L (test code = 761) HEMOGLOBIN (BEAKER) (test code = 10.1 GM/DL 13.7-17.5 L 410) HEMATOCRIT (BEAKER) (test code = 33.3 % 40.1-51.0 L 411) MEAN CORPUSCULAR VOLUME (BEAKER) 96.0 fL 79.0-92.2 H (test code = 753) MEAN CORPUSCULAR HEMOGLOBIN 29.1 pg 25.7-32.2 (BEAKER) (test code = 751) MEAN CORPUSCULAR HEMOGLOBIN CONC 30.3 GM/DL 32.3-36.5 L (BEAKER) (test code = 752) RED CELL DISTRIBUTION WIDTH 14.2 % 11.6-14.4 (BEAKER) (test code = 412) PLATELET COUNT (BEAKER) (test 249 K/CU MM 150-450 code = 756) MEAN PLATELET VOLUME (BEAKER) 8.7 fL 9.4-12.4 L (test code = 754) [...] (test code = 437) NEUTROPHILS ABSOLUTE COUNT 3.99 K/ L 1.78-5.38 (BEAKER) (test code = 670) LYMPHOCYTES ABSOLUTE COUNT 1.08 K/ L 1.32-3.57 L (BEAKER) (test code = 414) MONOCYTES ABSOLUTE COUNT (BEAKER) 0.72 K/ L 0.30-0.82 (test code = 415) EOSINOPHILS ABSOLUTE COUNT 0.16 K/ L 0.04-0.54 (BEAKER) (test code = 416) BASOPHILS ABSOLUTE COUNT (BEAKER) 0.03 K/ L 0.01-0.08 (test code = 417) IMMATURE GRANULOCYTES-RELATIVE 0 % 0-1 PERCENT (BEAKER) (test code = 2801) POCT-GLUCOSE [id number] 20:53:00 Test Item Value Reference Range Interpretation Comments POC-GLUCOSE METER 194 mg/dL 70-110 H : Notified RN/MD: (ALEYDA) (test code = TESTED AT [facility] 6720 9639) [facility], [address]: Air Conditioning Installer/Techni glenis ID = [id number] for LAKESHA NANCE POCT-GLUCOSE [id number] 17:10:00 Test Item Value Reference Range Interpretation Comments POC-GLUCOSE METER 113 mg/dL 70-110 H : Notified RN/MD: (BEAKER) (test code = TESTED AT [place] [address] 153) [facility], [address]: Air Conditioning Installer/Techni glenis ID = [id number] for Tam WOO POCT-GLUCOSE [id number] 16:35:00 Test Item Value Reference Range Interpretation Comments POC-GLUCOSE METER 54 mg/dL 70-110 L : Notified RN/MD: TESTED (BEAKER) (test code = AT [place] [id number] [facility] 1538) [facility], [facility]: Air Conditioning Installer/Techni glenis ID = [id number] for TEJAL GARCIA POCT-GLUCOSE [id number] 16:07:00 Test Item Value Reference Range Interpretation Comments POC-GLUCOSE METER 37 mg/dL 70-110 LL : Notified RN/MD: TESTED (BEAKER) (test code = AT [place] [address]) [facility], [facility]: Air Conditioning Installer/Techni glenis ID = [id number] for JACOBO ZALDIVAR LEAL BASIC METABOLIC [id number] 15:53:00 Test Item Value Reference Range Interpretation Comments SODIUM (BEAKER) 138 meq/L 136-145 (test code = 381) POTASSIUM (BEAKER) 5.0 meq/L 3.5-5.1 Specimen slightly (test code = 379) hemolyzed CHLORIDE (BEAKER) 99 meq/L 98-107 (test code = 382) CO2 (BEAKER) (test 23 meq/L 22-29 code = 355) BLOOD UREA NITROGEN 36 mg/dL 7-21 H (BEAKER) (test code = 354) CREATININE (BEAKER) 7.97 mg/dL 0.57-1.25 H Specimen slightly (test code = 358) hemolyzed GLUCOSE RANDOM 32 mg/dL 70-105 LL (BEAKER) (test code = 652) CALCIUM (BEAKER) 10.2 mg/dL 8.4-10.2 (test code = 697) EGFR (BEAKER) (test 7 mL/min/1.73 ESTIMAT ED GFR IS code = 1092) sq m NOT ACCURATE CREATININE CLEARANCE IN PREDICTING GLOMERULAR FILTRATION RATE . ESTIMATED GFR I S NOT APPLICABLE FOR DIALYSIS PATIEN TS. Air Conditioning Installer ID - [id number] 15:50:00 Test Item Value Reference Range Interpretation Comments MAGNESIUM (BEAKER) 2.1 mg/dL 1.6-2.6 Specimen slightly (test code = 627) hemolyzed Air Conditioning Installer ID - DBPOCT-GLUCOSE [id number] 10:59:00 Test Item Value Reference Range Interpretation Comments POC-GLUCOSE METER 200 mg/dL 70-110 H : TESTED A T [facility] 6720 (BEAKER) (test code = [facility], 1538) [address]: Air Conditioning Installer/Techni glenis ID = [id number] for QUEEN KELLEY POCT-GLUCOSE [id number] 08:06:00 Test Item Value Reference Range Interpretation Comments POC-GLUCOSE METER 133 mg/dL 70-110 H : TESTED A T [facility] 6720 (BEAKER) (test code = [facility], 1538) [address]: Air Conditioning Installer/Techni glenis ID = [id number] for QUEEN KELLEY CBC W/PLT COUNT & AUTO [id number] 07:38:00 Test Item Value Reference Range Interpretation Comments WHITE BLOOD CELL COUNT (BEAKER) 6.2 K/ L 3.5-10.5 (test code = 775) RED BLOOD CELL COUNT (BEAKER) 3.75 M/ L 4.63-6.08 L (test code = 761) HEMOGLOBIN (BEAKER) (test code = 11.1 GM/DL 13.7-17.5 L 410) HEMATOCRIT (BEAKER) (test code = 36.4 % 40.1-51.0 L 411) MEAN CORPUSCULAR VOLUME (BEAKER) 97.1 fL 79.0-92.2 H (test code = 753) MEAN CORPUSCULAR HEMOGLOBIN 29.6 pg 25.7-32.2 (BEAKER) (test code = 751) MEAN CORPUSCULAR HEMOGLOBIN CONC 30.5 GM/DL 32.3-36.5 L (BEAKER) (test code = 752) RED CELL DISTRIBUTION WIDTH 14.5 % 11.6-14.4 H (BEAKER) (test code = 412) PLATELET COUNT (BEAKER) (test 304 K/CU MM 150-450 code = 756) MEAN PLATELET VOLUME (BEAKER) 8.7 fL 9.4-12.4 L (test code = 754) NUCLEATED RED BLOOD CELLS 0 /100 WBC 0-0 (BEAKER) (test code = 413) NEUTROPHILS RELATIVE PERCENT 67 % (BEAKER) (test code = 429) LYMPHOCYTES RELATIVE PERCENT 18 % (BEAKER) (test code = 430) MONOCYTES RELATIVE PERCENT 11 % (BEAKER) (test code = 431) EOSINOPHILS RELATIVE PERCENT 2 % (BEAKER) (test code = 432) BASOPHILS RELATIVE PERCENT 1 % (BEAKER) (test code = 437) NEUTROPHILS ABSOLUTE COUNT 4.13 K/ L 1.78-5.38 (BEAKER) (test code = 670) LYMPHOCYTES ABSOLUTE COUNT 1.13 K/ L 1.32-3.57 L (BEAKER) (test code = 414) MONOCYTES ABSOLUTE COUNT (BEAKER) 0.68 K/ L 0.30-0.82 (test code = 415) EOSINOPHILS ABSOLUTE COUNT 0.14 K/ L 0.04-0.54 (BEAKER) (test code = 416) BASOPHILS ABSOLUTE COUNT (BEAKER) 0.05 K/ L 0.01-0.08 (test code = 417) IMMATURE GRANULOCYTES-RELATIVE 1 % 0-1 PERCENT (BEAKER) (test code = 2801) POCT-GLUCOSE [id number] 21:04:00 Test Item Value Reference Range Interpretation Comments POC-GLUCOSE METER 108 mg/dL 70-110 : TESTED A T [facility] 6720 (BEAKER) (test code = [facility], 153) [address]: Air Conditioning Installer/Techni glenis ID = [id number] for Ab aguilar (contract)Lio POCT-GLUCOSE [id number] 16:57:00 Test Item Value Reference Range Interpretation Comments POC-GLUCOSE METER 188 mg/dL 70-110 H : TESTED A T [facility] 6720 (BEAKER) (test code = [facility], 153) [address]: Air Conditioning Installer/Techni glenis ID = [id number] for EVERETTE BARRAGAN POCT-GLUCOSE [id number] 11:07:00 Test Item Value Reference Range Interpretation Comments POC-GLUCOSE METER 104 mg/dL 70-110 : TESTED A T [facility] 6720 (BEAKER) (test code = [facility], 153) [address]: Air Conditioning Installer/Techni glenis ID = [id number] for Malcolm Honeycutt POCT-GLUCOSE [id number] 09:12:00 Test Item Value Reference Range Interpretation Comments POC-GLUCOSE METER 148 mg/dL 70-110 H : TESTED A T [facility] 6720 (BEAKER) (test code = [facility], 1538) [address]: Air Conditioning Installer/Techni glenis ID = [id number] for CALLY WANG POCT-GLUCOSE [id number] 07:39:00 Test Item Value Reference Range Interpretation Comments POC-GLUCOSE METER 66 mg/dL 70-110 L : TESTED A T [facility] 6720 (BEAKER) (test code = [facility], 1538) [address]: Air Conditioning Installer/Techni glenis ID = [id number] for NADEEM BRIGHT BASIC METABOLIC [id number] 07:30:00 Test Item Value Reference Range Interpretation Comments SODIUM (BEAKER) 135 meq/L 136-145 L (test code = 381) POTASSIUM (BEAKER) 5.0 meq/L 3.5-5.1 (test code = 379) CHLORIDE (BEAKER) 97 meq/L 98-107 L (test code = 382) CO2 (BEAKER) (test 22 meq/L 22-29 code = 355) BLOOD UREA NITROGEN 54 mg/dL 7-21 H (BEAKER) (test code = 354) CREATININE (BEAKER) 10.67 mg/dL 0.57-1.25 H (test code = 358) GLUCOSE RANDOM 66 mg/dL 70-105 L (BEAKER) (test code = 652) CALCIUM (BEAKER) 9.3 mg/dL 8.4-10.2 (test code = 697) EGFR (BEAKER) (test 5 mL/min/1.73 ESTIMAT ED GFR IS code = 1092) sq m NOT ACCURATE CREATININE CLEARANCE IN PREDICTING GLOMERULAR FILTRATION RATE . ESTIMATED GFR I S NOT APPLICABLE FOR DIALYSIS PATIEN TS. Air Conditioning Installer ID - [id number] 07:12:00 Test Item Value Reference Range Interpretation Comments MAGNESIUM (BEAKER) (test code = 2.1 mg/dL 1.6-2.6 627) Air Conditioning Installer ID - DBCBC W/PLT COUNT & AUTO [id number] 06:26:00 Test Item Value Reference Range Interpretation Comments WHITE BLOOD CELL COUNT (BEAKER) 5.5 K/ L 3.5-10.5 (test code = 775) RED BLOOD CELL COUNT (BEAKER) 3.56 M/ L 4.63-6.08 L (test code = 761) HEMOGLOBIN (BEAKER) (test code = 10.6 GM/DL 13.7-17.5 L 410) HEMATOCRIT (BEAKER) (test code = 34.5 % 40.1-51.0 L 411) MEAN CORPUSCULAR VOLUME (BEAKER) 96.9 fL 79.0-92.2 H (test code = 753) MEAN CORPUSCULAR HEMOGLOBIN 29.8 pg 25.7-32.2 (BEAKER) (test code = 751) MEAN CORPUSCULAR HEMOGLOBIN CONC 30.7 GM/DL 32.3-36.5 L (BEAKER) (test code = 752) RED CELL DISTRIBUTION WIDTH 14.6 % 11.6-14.4 H (BEAKER) (test code = 412) PLATELET COUNT (BEAKER) (test 272 K/CU MM 150-450 code = 756) MEAN PLATELET VOLUME (BEAKER) 8.5 fL 9.4-12.4 L (test code = 754) NUCLEATED RED BLOOD CELLS 0 /100 WBC 0-0 (BEAKER) (test code = 413) NEUTROPHILS RELATIVE PERCENT 61 % (BEAKER) (test code = 429) LYMPHOCYTES RELATIVE PERCENT 22 % (BEAKER) (test code = 430) MONOCYTES RELATIVE PERCENT 14 % (BEAKER) (test code = 431) EOSINOPHILS RELATIVE PERCENT 3 % (BEAKER) (test code = 432) BASOPHILS RELATIVE PERCENT 1 % (BEAKER) (test code = 437) NEUTROPHILS ABSOLUTE COUNT 3.36 K/ L 1.78-5.38 (BEAKER) (test code = 670) LYMPHOCYTES ABSOLUTE COUNT 1.19 K/ L 1.32-3.57 L (BEAKER) (test code = 414) MONOCYTES ABSOLUTE COUNT (BEAKER) 0.78 K/ L 0.30-0.82 (test code = 415) EOSINOPHILS ABSOLUTE COUNT 0.14 K/ L 0.04-0.54 (BEAKER) (test code = 416) BASOPHILS ABSOLUTE COUNT (BEAKER) 0.04 K/ L 0.01-0.08 (test code = 417) IMMATURE GRANULOCYTES-RELATIVE 0 % 0-1 PERCENT (BEAKER) (test code = 2801) POCT-GLUCOSE [id number] 20:58:00 Test Item Value Reference Range Interpretation Comments POC-GLUCOSE METER 134 mg/dL 70-110 H : TESTED A T [facility] 6720 (BEAKER) (test code = [facility], 153) [address]: Air Conditioning Installer/Techni glenis ID = [id number] for Luisa Clifton POCT-GLUCOSE [id number] 16:34:00 Test Item Value Reference Range Interpretation Comments POC-GLUCOSE METER 86 mg/dL 70-110 : TESTED A T [facility] 6720 (BEAKER) (test code = [facility], 1538) [address]: Air Conditioning Installer/Techni glenis ID = [id number] for QUEEN YEN POCT-GLUCOSE [id number] 13:01:00 Test Item Value Reference Range Interpretation Comments POC-GLUCOSE METER 122 mg/dL 70-110 H : TESTED A T [facility] 6720 (BEAKER) (test code = [facility], 1538) [address]: Air Conditioning Installer/Techni glensi ID = [id number] for QUEEN KELLEY POCT-GLUCOSE [id number] 07:28:00 Test Item Value Reference Range Interpretation Comments POC-GLUCOSE METER 137 mg/dL 70-110 H : TESTED A T [facility] 6720 (BEAKER) (test code = [facility], 1538) [address]: Air Conditioning Installer/Techni glenis ID = [id number] for QUEEN KELLEY BASIC METABOLIC [id number] 07:27:00 Test Item Value Reference Range Interpretation Comments SODIUM (BEAKER) 135 meq/L 136-145 L (test code = 381) POTASSIUM (BEAKER) 4.4 meq/L 3.5-5.1 (test code = 379) CHLORIDE (BEAKER) 97 meq/L 98-107 L (test code = 382) CO2 (BEAKER) (test 26 meq/L 22-29 code = 355) BLOOD UREA NITROGEN 43 mg/dL 7-21 H (BEAKER) (test code = 354) CREATININE (BEAKER) 9.23 mg/dL 0.57-1.25 H (test code = 358) GLUCOSE RANDOM 140 mg/dL 70-105 H (BEAKER) (test code = 652) CALCIUM (BEAKER) 9.8 mg/dL 8.4-10.2 (test code = 697) EGFR (BEAKER) (test 6 mL/min/1.73 ESTIMAT ED GFR IS code = 1092) sq m NOT ACCURATE CREATININE CLEARANCE IN PREDICTING GLOMERULAR FILTRATION RATE . ESTIMATED GFR I S NOT APPLICABLE FOR DIALYSIS PATIEN TS. Air Conditioning Installer ID - EDASIHEMOGLOBIN [id number] 07:26:00 Test Item Value Reference Range Interpretation Comments HEMOGLOBIN A1C (BEAKER) (test code = 7.6 % 4.3-6.1 H 368) [id number] 07:23:00 Test Item Value Reference Range Interpretation Comments MAGNESIUM (BEAKER) (test code = 2.0 mg/dL 1.6-2.6 627) Air Conditioning Installer ID - [id number] 07:23:00 Test Item Value Reference Range Interpretation Comments PHOSPHORUS (BEAKER) (test code = 6.0 mg/dL 2.3-4.7 H 604) Air Conditioning Installer ID - EDASIVANCOMYCIN LEVEL, [id number] 06:35:00 Test Item Value Reference Range Interpretation Comments VANCOMYCIN RANDOM (BEAKER) (test 8.1 ug/mL code = 523) Reference Range: No NormalsOperator ID - EDASICBC W/PLT COUNT & AUTO [id number] 06:03:00 Test Item Value Reference Range Interpretation Comments WHITE BLOOD CELL COUNT (BEAKER) 5.6 K/ L 3.5-10.5 (test code = 775) RED BLOOD CELL COUNT (BEAKER) 3.67 M/ L 4.63-6.08 L (test code = 761) HEMOGLOBIN (BEAKER) (test code = 10.8 GM/DL 13.7-17.5 L 410) HEMATOCRIT (BEAKER) (test code = 34.6 % 40.1-51.0 L 411) MEAN CORPUSCULAR VOLUME (BEAKER) 94.3 fL 79.0-92.2 H (test code = 753) MEAN CORPUSCULAR HEMOGLOBIN 29.4 pg 25.7-32.2 (BEAKER) (test code = 751) MEAN CORPUSCULAR HEMOGLOBIN CONC 31.2 GM/DL 32.3-36.5 L (BEAKER) (test code = 752) RED CELL DISTRIBUTION WIDTH 14.6 % 11.6-14.4 H (BEAKER) (test code = 412) PLATELET COUNT (BEAKER) (test 251 K/CU MM 150-450 code = 756) MEAN PLATELET VOLUME (BEAKER) 8.7 fL 9.4-12.4 L (test code = 754) NUCLEATED RED BLOOD CELLS 0 /100 WBC 0-0 (BEAKER) (test code = 413) NEUTROPHILS RELATIVE PERCENT 69 % (BEAKER) (test code = 429) LYMPHOCYTES RELATIVE PERCENT 15 % (BEAKER) (test code = 430) MONOCYTES RELATIVE PERCENT 12 % (BEAKER) (test code = 431) EOSINOPHILS RELATIVE PERCENT 3 % (BEAKER) (test code = 432) BASOPHILS RELATIVE PERCENT 1 % (BEAKER) (test code = 437) NEUTROPHILS ABSOLUTE COUNT 3.88 K/ L 1.78-5.38 (BEAKER) (test code = 670) LYMPHOCYTES ABSOLUTE COUNT 0.84 K/ L 1.32-3.57 L (BEAKER) (test code = 414) MONOCYTES ABSOLUTE COUNT (BEAKER) 0.65 K/ L 0.30-0.82 (test code = 415) EOSINOPHILS ABSOLUTE COUNT 0.15 K/ L 0.04-0.54 (BEAKER) (test code = 416) BASOPHILS ABSOLUTE COUNT (BEAKER) 0.05 K/ L 0.01-0.08 (test code = 417) IMMATURE GRANULOCYTES-RELATIVE 0 % 0-1 PERCENT (BEAKER) (test code = 2801) POCT-GLUCOSE [id number] 20:10:00 Test Item Value Reference Range Interpretation Comments POC-GLUCOSE METER 88 mg/dL 70-110 : TESTED A T [facility] 6720 (BEAKER) (test code = [facility], 1538) [address]: Air Conditioning Installer/Techni glenis ID = [id number] for SHAWNA GONZALEZ POCT-GLUCOSE [id number] 17:17:00 Test Item Value Reference Range Interpretation Comments POC-GLUCOSE METER 92 mg/dL 70-110 : TESTED A T [facility] 6720 (BEAKER) (test code = [facility], 1538) [address]: Air Conditioning Installer/Techni glenis ID = [id number] for Malcolm Menezes EEG AWAKE AND [id number] 15:12:00Reason for exam:->Encephalopathy/syncope [facility] CENTERName: MATTHEW BLACKMAN : 1965 Sex: MNEUROPHYSIOLOGY EEG REPORTEEG Number: [id number]: [id number] OF TEST: 11/22/20DATE OF REPORT: 11/22/20art time: 13:52Stop time: 14:20CPT: [id number]: R56.9 History: 60 yo right handedmale who presented with encephalopathy/syncope.Medications: as detailed in the MRTECHNICAL SUMMARY: This is a digital video-EEG recorded with 32 input channels reviewed with bipolar and referential montages using the modified combinatorial system nomenclature. DESCRIPTION OF RECORD: During maximal alerting, the posterior dominant rhythm is 8 hz bilaterally and it is well sustained and well regulated.Lower voltage faster frequencies are present in bilateral anterior head regions. The awake background is represented mainly by a moderate voltage 5-7 Hz frequencies. During drowsiness, posterior dominant rhythm attenuates and there is an increase in fronto-central theta and incipient bilaterally present and symmetric vertex waves. Stage 2 sleep patterns were not observed. &#[id number];Hyperventilationwas not performed. PHOTIC STIMULATION: Photic stimulation across a broad frequency range (1-33 Hz) did not induce abnormal waveforms or responses. 𐢊ECG: sinus rhythmIMPRESSION: Abnormal EEG in wakefulness and drowsiness. a. Generalized slowing of the background rhythms, theta range, reactiveCLINICAL CORRELATION: The background slowing as seen in this record indicates the presence of a milddegree of encephalopathy that is non-specific in etiology. There were no focal or lateralizing features, no epileptiform discharges, no electro-clinical or electrographic seizures. 烌Shawn Banuelos MD, PhDEpilepsy Attending CT, CHEST, WITHOUT [id number] 12:42:00Unlisted Reason for Exam - Click Yes and Enter Reason Below->YesUnlisted Reason for Exam->opacity on CXR [facility] : 1965 Sex: MFINAL REPORT CT of the Chest dated 11/22/2020 CLINICAL INFORMATION: Unlisted Reason for Examopacity on CXR Comment: Axial images of the chest were obtained from thoracic inlet to the upper abdomen without intravenous contrast. This exam was performed according to our departmental dose-optimization program, which includes automated exposure control, adjustment of the mA and/or kV according to patient size and/or use of interactive reconstruction technique. Heart isnormal in size. There is prior sternotomy and bypass surgery. Great vessels are unremarkable. No adenopathy in the mediastinum or perihilar region. Trachea and mainstem bronchi are patent. Subsegmental atelectasis is seen in the lingula, left lower lobe, and to lesser degree the right lower lobe. There is a round atelectasis in the in the peripheral of the left lung base. The rest of the lungs are clear. No nodular, mass lesion or airspace disease is noted. No bronchiectasis is present. No pleural effusion or pleural based mass is seen. Visualized upper abdomen demonstrates no focal lesion. Impression: Subsegmental atelectasis in the lingula and both lower lobes. Signed: Prince Betts MDReport Verified Date/Time: 11/22/2020 12:42:23 Reading Location: [facility] C013Y MD Body Reading Room POCT-GLUCOSE [id number] 11:17:00 Test Item Value Reference Range Interpretation Comments POC-GLUCOSE METER 107 mg/dL 70-110 : TESTED A T [facility] 6720 (BEAKER) (test code = BRENDA Conner [facility], 1538) [address]: Air Conditioning Installer/Techni glenis ID = [id number] for CESAR WEINER BASIC METABOLIC [id number] 09:18:00 Test Item Value Reference Range Interpretation Comments SODIUM (BEAKER) 137 meq/L 136-145 (test code = 381) POTASSIUM (BEAKER) 5.5 meq/L 3.5-5.1 H (test code = 379) CHLORIDE (BEAKER) 100 meq/L 98-107 (test code = 382) CO2 (BEAKER) (test 15 meq/L 22-29 L code = 355) BLOOD UREA NITROGEN 90 mg/dL 7-21 H (BEAKER) (test code = 354) CREATININE (BEAKER) 15.21 mg/dL 0.57-1.25 H (test code = 358) GLUCOSE RANDOM 138 mg/dL 70-105 H (BEAKER) (test code = 652) CALCIUM (BEAKER) 9.1 mg/dL 8.4-10.2 (test code = 697) EGFR (BEAKER) (test 3 mL/min/1.73 ESTIMAT ED GFR IS code = 1092) sq m NOT ACCURATE CREATININE CLEARANCE IN PREDICTING GLOMERULAR FILTRATION RATE . ESTIMATED GFR I S NOT APPLICABLE FOR DIALYSIS PATIEN TS. Air Conditioning Installer ID - PIAYA LHEMOGLOBIN [id number] 09:15:00 Test Item Value Reference Range Interpretation Comments HEMOGLOBIN A1C (BEAKER) (test code = 7.7 % 4.3-6.1 H 368) VANCOMYCIN LEVEL, [id number] 09:10:00 Test Item Value Reference Range Interpretation Comments VANCOMYCIN RANDOM (BEAKER) (test 10.6 ug/mL code = 523) Reference Range: No NormalsOperator ID - PIAYA LPOCT-GLUCOSE [id number] 07:38:00 Test Item Value Reference Range Interpretation Comments POC-GLUCOSE METER 172 mg/dL 70-110 H : TESTED A T [facility] 6720 (BEAKER) (test code = [facility] [place], 1538) [address]: Air Conditioning Installer/Techni glenis ID = [id number] for CESAR WEINER BASIC METABOLIC [id number] 04:43:00 Test Item Value Reference Range Interpretation Comments SODIUM (BEAKER) 135 meq/L 136-145 L (test code = 381) POTASSIUM (BEAKER) 5.6 meq/L 3.5-5.1 H (test code = 379) CHLORIDE (BEAKER) 97 meq/L 98-107 L (test code = 382) CO2 (BEAKER) (test 17 meq/L 22-29 L code = 355) BLOOD UREA NITROGEN 89 mg/dL 7-21 H (BEAKER) (test code = 354) CREATININE (BEAKER) 15.18 mg/dL 0.57-1.25 H (test code = 358) GLUCOSE RANDOM 189 mg/dL 70-105 H (BEAKER) (test code = 652) CALCIUM (BEAKER) 9.0 mg/dL 8.4-10.2 (test code = 697) EGFR (BEAKER) (test 3 mL/min/1.73 ESTIMAT ED GFR IS code = 1092) sq m NOT ACCURATE CREATININE CLEARANCE IN PREDICTING GLOMERULAR FILTRATION RATE . ESTIMATED GFR I S NOT APPLICABLE FOR DIALYSIS PATIEN TS. Air Conditioning Installer ID - PITHIERNO [id number] 04:33:00 Test Item Value Reference Range Interpretation Comments MAGNESIUM (BEAKER) (test code = 2.4 mg/dL 1.6-2.6 627) Air Conditioning Installer ID - PITHIERNO LCBC W/PLT COUNT & AUTO [id number] 04:08:00 Test Item Value Reference Range Interpretation Comments WHITE BLOOD CELL COUNT (BEAKER) 8.5 K/ L 3.5-10.5 (test code = 775) RED BLOOD CELL COUNT (BEAKER) 3.75 M/ L 4.63-6.08 L (test code = 761) HEMOGLOBIN (BEAKER) (test code = 10.9 GM/DL 13.7-17.5 L 410) HEMATOCRIT (BEAKER) (test code = 35.5 % 40.1-51.0 L 411) MEAN CORPUSCULAR VOLUME (BEAKER) 94.7 fL 79.0-92.2 H (test code = 753) MEAN CORPUSCULAR HEMOGLOBIN 29.1 pg 25.7-32.2 (BEAKER) (test code = 751) MEAN CORPUSCULAR HEMOGLOBIN CONC 30.7 GM/DL 32.3-36.5 L (BEAKER) (test code = 752) RED CELL DISTRIBUTION WIDTH 14.6 % 11.6-14.4 H (BEAKER) (test code = 412) PLATELET COUNT (BEAKER) (test 268 K/CU MM 150-450 code = 756) MEAN PLATELET VOLUME (BEAKER) 8.6 fL 9.4-12.4 L (test code = 754) NUCLEATED RED BLOOD CELLS 0 /100 WBC 0-0 (BEAKER) (test code = 413) NEUTROPHILS RELATIVE PERCENT 78 % (BEAKER) (test code = 429) LYMPHOCYTES RELATIVE PERCENT 12 % (BEAKER) (test code = 430) MONOCYTES RELATIVE PERCENT 7 % (BEAKER) (test code = 431) EOSINOPHILS RELATIVE PERCENT 3 % (BEAKER) (test code = 432) BASOPHILS RELATIVE PERCENT 1 % (BEAKER) (test code = 437) NEUTROPHILS ABSOLUTE COUNT 6.68 K/ L 1.78-5.38 H (BEAKER) (test code = 670) LYMPHOCYTES ABSOLUTE COUNT 0.98 K/ L 1.32-3.57 L (BEAKER) (test code = 414) MONOCYTES ABSOLUTE COUNT (BEAKER) 0.59 K/ L 0.30-0.82 (test code = 415) EOSINOPHILS ABSOLUTE COUNT 0.21 K/ L 0.04-0.54 (BEAKER) (test code = 416) BASOPHILS ABSOLUTE COUNT (BEAKER) 0.04 K/ L 0.01-0.08 (test code = 417) IMMATURE GRANULOCYTES-RELATIVE 1 % 0-1 PERCENT (BEAKER) (test code = 2801) POCT-GLUCOSE [id number] 00:29:00 Test Item Value Reference Range Interpretation Comments POC-GLUCOSE METER 180 mg/dL 70-110 H : TESTED A T [facility] 6720 (BEAKER) (test code = [facility] [place], 1538) [address]: Air Conditioning Installer/Techni glenis ID = [id number] for ARI BRUMFIELD XR hand 3+ views [id number] 02:39:20Severe erosive changes of middle finger PIP joint with asymmetric erosion of ulnar condyle of P1 andresultant severe ulnar deviation deformity. Mild erosive changes of index finger PIP joint with fragmentation of P1 head and mild radial deviation deformity of PIP jointUT [id number] 14:55:00 Test Item Value Reference Range Interpretation Comments SURG (test code = SURG) --------RUN DATE: 08/02/20 [facility] - LAB PAGE 1 RUN TIME: 1455 Specimen Inquiry RUN USER: INTERFACE --------PATIENT: MATTHEW BLACKMAN LOC: [facility] U #: [id number] AGE/SX: 55/M ROOM: RE08/01/20[facility]: Vitaly Cheek MD : 67 BED: DIS: STATUS: [facility] TLOC: -------- SPEC #: [id number] RECD: 08/01/20 STATUS: KRYSTLE ROSSI #: [id number] ARI: 08/01/[address]: Vitaly Cheek MD ENTERED: 08/01/20 SP TYPE: SURG OTHR DR: Jorge Lemos MD ORDERED: SURG PATH LVL 4 COPIES TO: Jorge Lemos MD [address] [address] Vitaly Cheek MD [address] [place] [address] HISTOLOGY: TISSUE ID BLK PCS TING LEV PROCEDURE DISPOSITION ____ ___ ___ ___ ASCENDING COLON A 1 2 PROCEDURES: SURG PATH LVL 4 (08/01/20) TISSUES: A. ASCENDING COLON - ASCENDING COLON POLYP CLINICAL HISTORY SCREENING FOR MALIGNANT NEOPLASM - Z12.11; Z01.818 CPT CODES CPT CODE(S): 79132 , , , , , , FINAL DIAGNOSIS Colon, ascending, polypectomy: TUBULAR ADENOMAS GROSS DESCRIPTION Ascending colon polyp. Received in formalin is a villalba polypoid tissue fragment, 0.6 x 0.4 x 0.3 cm. Additionally received are multiple small villalba-brown biopsy fragments, 0.1 - 0.4 cm. The polypoid fragment is bisected and entirely submitted as A1, multiple small fragments in A2 and A3. ba/nr Grossing performed at [facility] Pathology, [facility], [address], CONTINUED ON NEXT PAGE --------RUN DATE: 08/02/20 [facility] PAGE 2 RUN TIME: 1455 Specimen Inquiry RUN USER: INTERFACE --------SPEC #: [id number] PATIENT: MATTHEW BLACKMAN #[id number] (Continued) GROSS DESCRIPTION (Continued) [place], [place] [address]. Audio Video Technician: Zuhair Webb M.D. MICROSCOPIC DESCRIPTION Ascending colon polyp. Sections demonstrate colonic mucosa with glands demonstrating crowded, hyperchromatic, pseudostratified nuclei. No evidence of high-grade dysplasia or malignancy is seen. Signed SIGNATURE ON FILE Juan Vargas 08/02/20 1455 -------- END OF REPORT GLUCOSE BEDSIDE [id number] 09:26:00 Test Item Value Reference Range Interpretation Comments GLUCOSE BEDSIDE TESTING (test code 198 mg/dL 70-110 H = GLUBED) [id number] 07:58:00 Test Item Value Reference Range Interpretation Comments POTASSIUM (test code = K) 4.9 mmol/L 3.4-5.0 N BASIC METABOLIC [id number] 11:52:00 Test Item Value Reference Range Interpretation [...] 9.3 MG/DL 8.5-10.1 N COVID 19 INHOUSE [id number] 11:43:00 Test Item Value Reference Range Interpretation Comments COVID 19 INHOUSE AG NEGATIVE Negative Per manu facturer, (test code = negative result s should [id number]) be treated aspr esumptive and, if inconsi [...] Spec Comments: PRE OPComments to Phleb: PATPROTHROMBIN [id number] 11:29:00 Test Item Value Reference Range Interpretation Comments PT PATIENT (test code = PTP) 10.9 SECONDS 9.3-12.9 N INTERNATIONAL NORMAL RATIO 0.97 INR Unit 0.8-1.2 N (test code = INR) THROMBOPLASTIN TIME [id number] 11:29:00 Test Item Value Reference Range Interpretation Comments THROMBOPLASTIN TIME PARTIAL 32.7 SECONDS 26-35 N (test code = PTT) CBC W/AUTO [id number] 11:17:00 Test Item Value Reference Range Interpretation [...] CRITERIA = MDIFF) MYOCARD IMAGING, MULTI, PHARM, [id number] 16:38:00FINAL REPORT PROCEDURE: MYOCARDIAL PERFUSION SPECT IMAGING (Rest/Stress)CPT CODE: 34126 INDICATION: Evaluation in advance of renal transplant [...] MDReport Verified Date/Time: 03/31/2019 16:38:15 Reading Location: [address] Reading Room POCT-GLUCOSE [id number] 11:51:00 Test Item Value Reference Range Interpretation Comments POC-GLUCOSE METER 136 mg/dL 70-110 H TESTED AT [place] [address] ([facility]) (test code = [facility] 1538) [address] POCT-GLUCOSE [id number] 08:41:00 Test Item Value Reference Range Interpretation Comments POC-GLUCOSE METER 157 mg/dL 70-110 H TESTED AT [place] [address] ([facility]) (test code = [facility] 1538) [address] POCT-GLUCOSE [id number] 06:47:00 Test Item Value Reference Range Interpretation Comments POC-GLUCOSE METER 130 mg/dL 70-110 H TESTED AT [place] [address] ([facility]) (test code = [facility] 1538) [address] BASIC METABOLIC [id number] 05:20:00 Test Item Value Reference Range Interpretation [...] 697) EGFR (BEAKER) (test 14 mL/min/1.73 ESTIMA FRANKLIN GFR IS code = 1092) sq m NOT ACCURATE CREATININE CLEARANCE IN PREDICTING GLOMERULAR FILTRATION RATE . ESTIMATED GFR I S NOT APPLICABLE FOR DIALYSIS PATIEN TS. CBC W/PLT COUNT & AUTO [id number] 04:42:00 Test Item Value Reference Range Interpretation [...] PERCENT (BEAKER) (test code = 2801) POCT-GLUCOSE [id number] 19:39:00 Test Item Value Reference Range Interpretation Comments POC-GLUCOSE METER 88 mg/dL 70-110 TESTED AT [facility] 6720 (BEAKER) (test code = [place] [address] 0238) BASIC METABOLIC [id number] 15:34:00 Test Item Value Reference Range Interpretation [...] 697) EGFR (BEAKER) (test 10 mL/min/1.73 ESTIMA FRANKLIN GFR IS code = 1092) sq m NOT ACCURATE CREATININE CLEARANCE IN PREDICTING GLOMERULAR FILTRATION RATE . ESTIMATED GFR I S NOT APPLICABLE FOR DIALYSIS PATIEN TS. CBC W/PLT COUNT & AUTO [id number] 15:20:00 Test Item Value Reference Range Interpretation [...] PERCENT (BEAKER) (test code = 2801) POCT-GLUCOSE [id number] 12:47:00 Test Item Value Reference Range Interpretation Comments POC-GLUCOSE METER 140 mg/dL 70-110 H TESTED AT [facility] 6720 (BEAKER) (test code = [place] 1538) [address] POCT-GLUCOSE [id number] 08:21:00 Test Item Value Reference Range Interpretation Comments POC-GLUCOSE METER 107 mg/dL 70-110 TESTED AT [facility] 6720 ([facility]) (test code = [place] 1538) [address] POCT-GLUCOSE [id number] 22:25:00 Test Item Value Reference Range Interpretation Comments POC-GLUCOSE METER 97 mg/dL 70-110 TESTED AT [place] [address] ([facility]) (test code = [place] [address] 1538) POCT-GLUCOSE [id number] 18:02:00 Test Item Value Reference Range Interpretation Comments POC-GLUCOSE METER 264 mg/dL 70-110 H TESTED AT [place] [address] ([facility]) (test code = BRENDA Prieto [facility] 1538) [address] EEG AWAKE AND [id number] 12:26:00Reason for exam:->EncephalopathyDATE OF TEST: 11-11-2018 DATE OF REPORT: 11-11-2018 EEG: BT [id number] Start time: 9:31AM Stop time: 9:54AM ICD-10: R41.82 CPT Code: 23527 HISTORY: 53 year old male with CAD [...] recorded. Umu Logan M.D. Neurophysiology Attending POCT-GLUCOSE [id number] 10:29:00 Test Item Value Reference Range Interpretation Comments POC-GLUCOSE METER 164 mg/dL 70-110 H TESTED AT [facility] 6720 (BEAKER) (test code = [place] 1538) [address] BASIC METABOLIC [id number] 05:28:00 Test Item Value Reference Range Interpretation [...] 697) EGFR (BEAKER) (test 14 mL/min/1.73 ESTIMA FRANKLIN GFR IS code = 1092) sq m NOT ACCURATE CREATININE CLEARANCE IN PREDICTING GLOMERULAR FILTRATION RATE . ESTIMATED GFR I S NOT APPLICABLE FOR DIALYSIS PATIEN TS. CBC W/PLT COUNT & AUTO [id number] 04:59:00 Test Item Value Reference Range Interpretation [...] PERCENT (BEAKER) (test code = 2801) POCT-GLUCOSE [id number] 21:43:00 Test Item Value Reference Range Interpretation Comments POC-GLUCOSE METER 158 mg/dL 70-110 H TESTED AT [facility] 6720 (BEAKER) (test code = [place] 1538) [address] POCT-GLUCOSE [id number] 20:10:00 Test Item Value Reference Range Interpretation Comments POC-GLUCOSE METER 132 mg/dL 70-110 H TESTED AT [facility] 6720 (BEAKER) (test code = [place] 1538) [address] BASIC METABOLIC [id number] 17:58:00 Test Item Value Reference Range Interpretation [...] 697) EGFR (BEAKER) (test 11 mL/min/1.73 ESTIMA FRANKLIN GFR IS code = 1092) sq m NOT ACCURATE CREATININE CLEARANCE IN PREDICTING GLOMERULAR FILTRATION RATE . ESTIMATED GFR I S NOT APPLICABLE FOR DIALYSIS PATIEN TS. CBC W/PLT COUNT & AUTO [id number] 17:00:00 Test Item Value Reference Range Interpretation [...] (test code = 2801) CT, BRAIN, WITHOUT [id number] 14:50:00Reason for exam:->decreased alertnessWhat is the patient's [...] if there are no contraindications. Signed: Doug Huff MDReport Verified Date/Time: 11/10/2018 14:50:39 Reading Location: [facility] C013V Neuro Reading Room BLOOD GAS, [id number] 13:34:00 Test Item Value Reference Range Interpretation [...] (test 37.0 C code = 1818) POCT-GLUCOSE [id number] 09:04:00 Test Item Value Reference Range Interpretation Comments POC-GLUCOSE METER 108 mg/dL 70-110 TESTED AT [place] [address] ([facility]) (test code = BRENDA Prieto [facility] 1538) [address] POCT-GLUCOSE [id number] 03:53:00 Test Item Value Reference Range Interpretation Comments POC-GLUCOSE METER 114 mg/dL 70-110 H TESTED AT [place] [address] ([facility]) (test code = [facility] MARYVALELESIA Prieto [facility] 1538) [address] POCT-GLUCOSE [id number] 20:13:00 Test Item Value Reference Range Interpretation Comments POC-GLUCOSE METER 246 mg/dL 70-110 H TESTED AT [place] [address] ([facility]) (test code = [facility] Conner [facility] 1538) [address] POCT-GLUCOSE [id number] 20:06:00 Test Item Value Reference Range Interpretation Comments POC-GLUCOSE METER 198 mg/dL 70-110 H TESTED AT [place] [address] ([facility]) (test code = [facility] 1538) [address] [id number] 16:20:00 Test Item Value Reference Range Interpretation Comments POTASSIUM (BEAKER) (test code = 4.1 meq/L 3.5-5.1 379) Call Nephrology for > 5.2BLOOD GAS, [id number] 16:07:00 Test Item Value Reference Range Interpretation [...] (test code = 1819) 32.0 % POCT-GLUCOSE [id number] 15:58:00 Test Item Value Reference Range Interpretation Comments POC-GLUCOSE METER 182 mg/dL 70-110 H TESTED AT [facility] 6720 (BEAKER) (test code = [place] 1538) [address] POCT-GLUCOSE [id number] 15:58:00 Test Item Value Reference Range Interpretation Comments POC-GLUCOSE METER 124 mg/dL 70-110 H TESTED AT [facility] 6720 (BEAKER) (test code = BRENDA Prieto [place] 1538) [address] [id number] 12:51:00 Test Item Value Reference Range Interpretation Comments POTASSIUM (BEAKER) (test code = 3.4 meq/L 3.5-5.1 L 379) Call Nephrology for > 5.2BLOOD GAS, [id number] 12:39:00 Test Item Value Reference Range Interpretation [...] (BEAKER) (test code = 1819) 36.0 % [id number] 10:39:00 Test Item Value Reference Range Interpretation Comments FERRITIN (BEAKER) (test code = 1987 ng/mL 5-275 H 361) POCT-GLUCOSE [id number] 10:38:00 Test Item Value Reference Range Interpretation Comments POC-GLUCOSE METER 116 mg/dL 70-110 H TESTED AT [facility] 6720 (BEAKER) (test code = BR[place]DA Prieto [place] 1538) [address] IRON, TIBC, % SAT. (WITHOUT FERRITIN)2018-11-09 10:10:00 Test Item Value Reference Range Interpretation Comments IRON (BEAKER) (test code = 547) 33.0 ug/dL 40.0-160.0 L TOTAL IRON BINDING CAPACITY 174 ug/dL 250-450 L (BEAKER) (test code = 769) IRON % SATURATION (2) (BEAKER) 19 % 20-55 L (test code = 2590) [id number] 09:58:00 Test Item Value Reference Range Interpretation Comments POTASSIUM (BEAKER) (test code = 4.9 meq/L 3.5-5.1 379) Call Nephrology for > [id number] 08:15:00 Test Item Value Reference Range Interpretation Comments POTASSIUM (BEAKER) (test code = 5.4 meq/L 3.5-5.1 H 379) Call Nephrology for > 5.2BLOOD GAS, [id number] 07:57:00 Test Item Value Reference Range Interpretation [...] 40.0 % RAD, CHEST, 1 VIEW, NON [id number] 07:53:00while patient is intubated or has chest [...] MDReport Verified Date/Time: 11/09/2018 07:53:31 Reading Location: [facility] Radiology Reading Room POCT-GLUCOSE [id number] 07:10:00 Test Item Value Reference Range Interpretation Comments POC-GLUCOSE METER 118 mg/dL 70-110 H TESTED AT [place] [address] ([facility]) (test code = BRENDA Prieto [facility] 1538) [address] POCT-GLUCOSE [id number] 06:27:00 Test Item Value Reference Range Interpretation Comments POC-GLUCOSE METER 115 mg/dL 70-110 H TESTED AT [place] [address] ([facility]) (test code = BRENDA Prieto [facility] 1538) [address] [id number] 06:20:00 Test Item Value Reference Range Interpretation Comments ACTIVATED CLOTTING TIME 109 sec TEST ED AT [place] [address] ([facility]) (test code = BR[place]DA Prieto [place] 441) [address] [id number] 06:20:00 Test Item Value Reference Range Interpretation Comments ACTIVATED CLOTTING TIME 417 sec TEST ED AT [place] [address] ([facility]) (test code = [place] 441) [address] [id number] 06:20:00 Test Item Value Reference Range Interpretation Comments ACTIVATED CLOTTING TIME 461 sec TEST ED AT [place] [address] ([facility]) (test code = [place] 441) [address] [id number] 06:20:00 Test Item Value Reference Range Interpretation Comments ACTIVATED CLOTTING TIME 516 sec TEST ED AT [place] [address] ([facility]) (test code = BRENDA Prieto [place] 441) [address] [id number] 06:19:00 Test Item Value Reference Range Interpretation Comments ACTIVATED CLOTTING TIME 494 sec TEST ED AT [place] [address] ([facility]) (test code = BRENDA Prieto [place] 441) [address] [id number] 06:19:00 Test Item Value Reference Range Interpretation Comments ACTIVATED CLOTTING TIME 378 sec TEST ED AT [place] [address] ([facility]) (test code = BRENDA Prieto [place] 441) [address] LACTIC ACID, [id number] 06:14:00 Test Item Value Reference Range Interpretation Comments LACTATE BLOOD 0.9 mmol/L 0.5-2.2 Specimen sligh tly ARTERIAL (2) (BEAKER) hemoly zed (test code = 2874) [id number] 06:12:00 Test Item Value Reference Range Interpretation Comments POTASSIUM (BEAKER) (test code = 5.5 meq/L 3.5-5.1 H 379) Call Nephrology for > 5.2OXYGEN SATURATION, [id number] 05:54:00 Test Item Value Reference Range Interpretation Comments O2 SATURATION (MEASURED) (BEAKER) 91.7 % (test code = 1455) BLOOD GAS, [id number] 05:54:00 Test Item Value Reference Range Interpretation Comments PH ARTERIAL (BEAKER) (test code = 7.35 7.35-7.45 383) PCO2 ARTERIAL (BEAKER) (test code 47 mmHg 35-45 H = 384) PO2 ARTERIAL (BEAKER) (test code 117 mmHg 80-90 H = 385) O2 SATURATION ARTERIAL (BEAKER) 98.1 % 96.0-97.0 H (test code = 386) HCO3 ARTERIAL ([facility]) (test code 26 mmol/L 21-29 = 388) BASE EXCESS ARTERIAL ([facility]) -0.2 mmol/L -2.0-3.0 (test code = 387) PATIENT TEMPERATURE ([facility]) 36.4 C (test code = 1818) FIO2 ([facility]) (test code = 1819) 50.0 % POCT-GLUCOSE [id number] 05:18:00 Test Item Value Reference Range Interpretation Comments POC-GLUCOSE METER 127 mg/dL 70-110 H TESTED AT [place] [address] ([facility]) (test code = [facility] 1538) [address] POCT-GLUCOSE [id number] 04:30:00 Test Item Value Reference Range Interpretation Comments POC-GLUCOSE METER 191 mg/dL 70-110 H TESTED AT [place] [address] ([facility]) (test code = [facility] 1538) [address] POCT-GLUCOSE [id number] 04:30:00 Test Item Value Reference Range Interpretation Comments POC-GLUCOSE METER 320 mg/dL 70-[address] [facility] ([facility]) (test code = draw/T ESTED AT [place] [address]) 67[address] [facility] [address] POCT-GLUCOSE [id number] 04:30:00 Test Item Value Reference Range Interpretation Comments POC-GLUCOSE METER 187 mg/dL 70-110 H TESTED AT [place] [address] ([facility]) (test code = [facility] 1538) [address] POCT-GLUCOSE [id number] 04:30:00 Test Item Value Reference Range Interpretation Comments POC-GLUCOSE METER 132 mg/dL 70-110 H TESTED AT [place] [address] ([facility]) (test code = [facility] 1538) [address] BASIC METABOLIC [id number] 04:27:00 Test Item Value Reference Range Interpretation [...] DIALYSIS PATIEN TS. Call Nephrology for > [id number] 04:08:00 Test Item Value Reference Range Interpretation Comments POTASSIUM (BEAKER) (test code = 5.2 meq/L 3.5-5.1 H 379) Call Nephrology for > [id number] 04:08:00 Test Item Value Reference Range Interpretation Comments MAGNESIUM (BEAKER) (test code = 2.1 mg/dL 1.6-2.6 627) Call Nephrology for > [id number] 04:08:00 Test Item Value Reference Range Interpretation Comments PHOSPHORUS (BEAKER) (test code = 4.0 mg/dL 2.3-4.7 604) Call Nephrology for > 5.2CBC W/PLT COUNT & AUTO [id number] 03:51:00 Test Item Value Reference Range Interpretation [...] (BEAKER) (test code = 2801) BLOOD GAS, [id number] 03:48:00 Test Item Value Reference Range Interpretation [...] (test code = 1819) 50.0 % CALCIUM, [id number] 03:48:00 Test Item Value Reference Range Interpretation Comments CALCIUM IONIZED (BEAKER) (test 1.23 mmol/L 1.12-1.27 code = 698) PH, BLOOD (BEAKER) (test code = 7.32 1810) [id number] 02:28:00 Test Item Value Reference Range Interpretation Comments POTASSIUM (BEAKER) (test code = 5.9 meq/L 3.5-5.1 H 379) Call Nephrology for > 5.2BLOOD GAS, [id number] 02:07:00 Test Item Value Reference Range Interpretation [...] (test code = 1819) 44.0 % POTASSIUM-STAT [id number] 00:09:00 Test Item Value Reference Range Interpretation Comments POTASSIUM (BEAKER) (test code = 5.8 meq/L 3.6-5.5 H 379) BLOOD GAS, [id number] 00:04:00 Test Item Value Reference Range Interpretation [...] (test code = 1819) 50.0 % GLUCOSE-STAT [id number] 00:04:00 Test Item Value Reference Range Interpretation Comments GLUCOSE RANDOM (BEAKER) (test code 133 mg/dL 70-110 H = 652) HGB/HCT (H&H) - STAT [id number] 00:04:00 Test Item Value Reference Range Interpretation Comments HEMOGLOBIN (BEAKER) (test code = 11.1 g/dL 13.0-16.8 L 410) HEMATOCRIT (BEAKER) (test code = 33.0 % 40.0-50.0 L 411) SODIUM NA-STAT [id number] 00:02:00 Test Item Value Reference Range Interpretation Comments SODIUM (BEAKER) (test code = 381) 136 meq/L 135-148 POCT-GLUCOSE [id number] 00:01:00 Test Item Value Reference Range Interpretation Comments POC-GLUCOSE METER 131 mg/dL 70-110 H TESTED AT [place] [address] (BEAKER) (test code = BRENDA Prieto [facility] 1538) [address] POCT-GLUCOSE [id number] 00:01:00 Test Item Value Reference Range Interpretation Comments POC-GLUCOSE METER 117 mg/dL 70-110 H TESTED AT [place] [address] (BEAKER) (test code = [facility] MARYVALELESIA Prieto [facility] 1538) [address] POCT-GLUCOSE [id number] 00:01:00 Test Item Value Reference Range Interpretation Comments POC-GLUCOSE METER 119 mg/dL 70-110 H TESTED AT [place] [address] (BEAKER) (test code = [facility] MARYVALELESIA Prieto [facility] 1538) [address] BASIC METABOLIC [id number] 23:15:00 Test Item Value Reference Range Interpretation [...] S NOT APPLICABLE FOR DIALYSIS PATIEN TS. [id number] 23:14:00 Test Item Value Reference Range Interpretation Comments MAGNESIUM (BEAKER) (test code = 2.1 mg/dL 1.6-2.6 627) LACTIC ACID, [id number] 23:11:00 Test Item Value Reference Range Interpretation Comments LACTATE BLOOD ARTERIAL (2) 1.0 mmol/L 0.5-2.2 (BEAKER) (test code = 2874) BLOOD GAS, [id number] 22:57:00 Test Item Value Reference Range Interpretation [...] (test code = 1819) 50.0 % GLUCOSE-STAT [id number] 22:57:00 Test Item Value Reference Range Interpretation Comments GLUCOSE RANDOM (BEAKER) (test code 126 mg/dL 70-110 H = 652) HGB/HCT (H&H) - STAT [id number] 22:57:00 Test Item Value Reference Range Interpretation Comments HEMOGLOBIN (BEAKER) (test code = 11.2 g/dL 13.0-16.8 L 410) HEMATOCRIT (BEAKER) (test code = 33.0 % 40.0-50.0 L 411) SODIUM NA-STAT [id number] 22:54:00 Test Item Value Reference Range Interpretation Comments SODIUM (BEAKER) (test code = 381) 138 meq/L 135-148 POTASSIUM-STAT [id number] 22:54:00 Test Item Value Reference Range Interpretation Comments POTASSIUM (BEAKER) (test code = 5.4 meq/L 3.6-5.5 379) SODIUM NA-STAT [id number] 21:58:00 Test Item Value Reference Range Interpretation Comments SODIUM (BEAKER) (test code = 381) 138 meq/L 135-148 POTASSIUM-STAT [id number] 21:58:00 Test Item Value Reference Range Interpretation Comments POTASSIUM (BEAKER) (test code = 4.6 meq/L 3.6-5.5 379) BLOOD GAS, [id number] 21:58:00 Test Item Value Reference Range Interpretation [...] (test code = 1819) 30.0 % GLUCOSE-STAT [id number] 21:58:00 Test Item Value Reference Range Interpretation Comments GLUCOSE RANDOM (BEAKER) (test code 121 mg/dL 70-110 H = 652) HGB/HCT (H&H) - STAT [id number] 21:58:00 Test Item Value Reference Range Interpretation Comments HEMOGLOBIN (BEAKER) (test code = 11.3 g/dL 13.0-16.8 L 410) HEMATOCRIT (BEAKER) (test code = 33.0 % 40.0-50.0 L 411) POCT-GLUCOSE [id number] 21:02:00 Test Item Value Reference Range Interpretation Comments POC-GLUCOSE METER 133 mg/dL 70-110 H TESTED AT [facility] 6720 (BEAKER) (test code = [place] 1538) [address] SODIUM NA-STAT [id number] 20:38:00 Test Item Value Reference Range Interpretation Comments SODIUM (BEAKER) (test code = 381) 136 meq/L 135-148 POTASSIUM-STAT [id number] 20:38:00 Test Item Value Reference Range Interpretation Comments POTASSIUM (BEAKER) (test code = 4.4 meq/L 3.6-5.5 379) BLOOD GAS, [id number] 20:38:00 Test Item Value Reference Range Interpretation [...] (test code = 1819) 40.0 % GLUCOSE-STAT [id number] 20:38:00 Test Item Value Reference Range Interpretation Comments GLUCOSE RANDOM (BEAKER) (test code 124 mg/dL 70-110 H = 652) HGB/HCT (H&H) - STAT [id number] 20:38:00 Test Item Value Reference Range Interpretation Comments HEMOGLOBIN (BEAKER) (test code = 10.9 g/dL 13.0-16.8 L 410) HEMATOCRIT (BEAKER) (test code = 32.0 % 40.0-50.0 L 411) POCT-GLUCOSE [id number] 20:17:00 Test Item Value Reference Range Interpretation Comments POC-GLUCOSE METER 139 mg/dL 70-110 H TESTED AT [place] [address] ([facility]) (test code = BRENDA Prieto [place] 1538) [address] POCT-GLUCOSE [id number] 20:17:00 Test Item Value Reference Range Interpretation Comments POC-GLUCOSE METER 154 mg/dL 70-110 H TESTED AT [place] [address] ([facility]) (test code = BRENDA Prieto [place] 1538) [address] POCT-GLUCOSE [id number] 20:17:00 Test Item Value Reference Range Interpretation Comments POC-GLUCOSE METER 169 mg/dL 70-110 H TESTED AT [place] [address] ([facility]) (test code = JAKENJ Conner [place] 1538) [address] [id number] 19:51:00 Test Item Value Reference Range Interpretation [...] Value Reference Range Interpretation Comments [facility]ANDOM [facility] (test code 146 mg/dL 70-105 H = 652) Check Serum Magnesium level 2 hours after IV magnesium replacement.BLOOD GAS, [id number] 19:29:00 Test Item Value Reference Range Interpretation [...] (test code = 1819) 60.0 % GLUCOSE-STAT [id number] 19:29:00 Test Item Value Reference Range Interpretation Comments GLUCOSE RANDOM (BEAKER) (test code 142 mg/dL 70-110 H = 652) HGB/HCT (H&H) - STAT [id number] 19:29:00 Test Item Value Reference Range Interpretation Comments HEMOGLOBIN (BEAKER) (test code = 11.3 g/dL 13.0-16.8 L 410) HEMATOCRIT (BEAKER) (test code = 33.0 % 40.0-50.0 L 411) SODIUM NA-STAT [id number] 19:28:00 Test Item Value Reference Range Interpretation Comments SODIUM (BEAKER) (test code = 381) 138 meq/L 135-148 POTASSIUM-STAT [id number] 19:28:00 Test Item Value Reference Range Interpretation Comments POTASSIUM (BEAKER) (test code = 4.2 meq/L 3.6-5.5 379) BASIC METABOLIC [id number] 16:25:00 Test Item Value Reference Range Interpretation [...] 697) EGFR (BEAKER) (test 11 mL/min/1.73 ESTIMA FRANKLIN GFR IS code = 1092) sq m NOT ACCURATE CREATININE CLEARANCE IN PREDICTING GLOMERULAR FILTRATION RATE . ESTIMATED GFR I S NOT APPLICABLE FOR DIALYSIS PATIEN TS. [id number] 16:22:00 Test Item Value Reference Range Interpretation Comments MAGNESIUM (BEAKER) 2.3 mg/dL 1.6-2.6 Specimen slightly (test code = 627) hemolyzed [id number] 16:22:00 Test Item Value Reference Range Interpretation Comments PHOSPHORUS (BEAKER) 3.3 mg/dL 2.3-4.7 Specimen slightly (test code = 604) hemolyzed LACTIC ACID, [id number] 15:52:00 Test Item Value Reference Range Interpretation Comments LACTATE BLOOD 1.0 mmol/L 0.5-2.2 Specimen sligh tly ARTERIAL (2) (BEAKER) hemoly zed (test code = 2874) [id number] 15:48:00 Test Item Value Reference Range Interpretation [...] mechanical heart valves.CBC W/PLT COUNT & AUTO [id number] 15:31:00 Test Item Value Reference Range Interpretation [...] (BEAKER) (test code = 2801) OXYGEN SATURATION, [id number] 15:30:00 Test Item Value Reference Range Interpretation Comments O2 SATURATION (MEASURED) (BEAKER) 90.0 % (test code = 1455) BLOOD GAS, [id number] 15:30:00 Test Item Value Reference Range Interpretation [...] 100.0 % RAD, CHEST, 1 VIEW, NON [id number] 15:29:00Reason for exam:->Status post CV Surgery post [...] MDReport Verified Date/Time: 11/08/2018 15:29:07 Reading Location: [facility] Reading Room MBOELASTOGRAPH (TEG)2018-11-08 14:44:00 Test [...] 55.0-65.0 L (test code = 1413) PROTHROMBIN [id number] 13:56:00 Test Item Value Reference Range Interpretation [...] INR is2.5-3.5 for patients wiht mechanical heart valves.[id number] 13:56:00 Test Item Value Reference Range Interpretation Comments FIBRINOGEN LEVEL (BEAKER) (test 449 mg/dl 225-434 H code = 658) [id number] 13:56:00 Test Item Value Reference Range Interpretation Comments PARTIAL THROMBOPLASTIN TIME 30.5 seconds 22.5-36.0 (BEAKER) (test code = 760) PLATELET [id number] 13:49:00 Test Item Value Reference Range Interpretation Comments PLATELET COUNT (BEAKER) (test 106 K/CU MM 150-450 L code = 756) BLOOD GAS, [id number] 13:44:00 Test Item Value Reference Range Interpretation [...] (test code = 1819) 100.0 % GLUCOSE-STAT [id number] 13:44:00 Test Item Value Reference Range Interpretation Comments GLUCOSE RANDOM (BEAKER) (test code 176 mg/dL 70-110 H = 652) HGB/HCT (H&H) - STAT [id number] 13:44:00 Test Item Value Reference Range Interpretation Comments HEMOGLOBIN (BEAKER) (test code = 9.3 g/dL 13.0-16.8 L 410) HEMATOCRIT (BEAKER) (test code = 27.0 % 40.0-50.0 L 411) CALCIUM, [id number] 13:44:00 Test Item Value Reference Range Interpretation Comments CALCIUM IONIZED (BEAKER) (test 1.28 mmol/L 1.12-1.27 H code = 698) PH, BLOOD (BEAKER) (test code = 7.36 1810) SODIUM NA-STAT [id number] 13:43:00 Test Item Value Reference Range Interpretation Comments SODIUM (BEAKER) (test code = 381) 137 meq/L 135-148 POTASSIUM-STAT [id number] 13:43:00 Test Item Value Reference Range Interpretation Comments POTASSIUM (BEAKER) (test code = 5.0 meq/L 3.6-5.5 379) BLOOD GAS, [id number] 13:28:00 Test Item Value Reference Range Interpretation [...] code = 1819) 80.0 % SODIUM NA-STAT [id number] 13:28:00 Test Item Value Reference Range Interpretation Comments SODIUM (BEAKER) (test code = 381) 139 meq/L 135-148 GLUCOSE-STAT [id number] 13:28:00 Test Item Value Reference Range Interpretation Comments GLUCOSE RANDOM (BEAKER) (test code 194 mg/dL 70-110 H = 652) HGB/HCT (H&H) - STAT [id number] 13:28:00 Test Item Value Reference Range Interpretation Comments HEMOGLOBIN (BEAKER) (test code = 10.1 g/dL 13.0-16.8 L 410) HEMATOCRIT (BEAKER) (test code = 30.0 % 40.0-50.0 L 411) POTASSIUM-STAT [id number] 13:23:00 Test Item Value Reference Range Interpretation Comments POTASSIUM (BEAKER) (test code = 5.5 meq/L 3.6-5.5 379) BLOOD GAS, [id number] 12:53:00 Test Item Value Reference Range Interpretation [...] code = 1819) 100.0 % SODIUM NA-STAT [id number] 12:53:00 Test Item Value Reference Range Interpretation Comments SODIUM (BEAKER) (test code = 381) 130 meq/L 135-148 L GLUCOSE-STAT [id number] 12:53:00 Test Item Value Reference Range Interpretation Comments GLUCOSE RANDOM (BEAKER) (test code 231 mg/dL 70-110 H = 652) HGB/HCT (H&H) - STAT [id number] 12:53:00 Test Item Value Reference Range Interpretation Comments HEMOGLOBIN (BEAKER) (test code = 8.4 g/dL 13.0-16.8 L 410) HEMATOCRIT (BEAKER) (test code = 25.0 % 40.0-50.0 L 411) POTASSIUM-STAT [id number] 12:53:00 Test Item Value Reference Range Interpretation Comments POTASSIUM (BEAKER) (test code = 6.0 meq/L 3.6-5.5 HH 379) BLOOD GAS, [id number] 12:28:00 Test Item Value Reference Range Interpretation [...] code = 1819) 65.0 % SODIUM NA-STAT [id number] 12:28:00 Test Item Value Reference Range Interpretation Comments SODIUM (BEAKER) (test code = 381) 131 meq/L 135-148 L POTASSIUM-STAT [id number] 12:28:00 Test Item Value Reference Range Interpretation Comments POTASSIUM (BEAKER) (test code = 6.0 meq/L 3.6-5.5 HH 379) GLUCOSE-STAT [id number] 12:28:00 Test Item Value Reference Range Interpretation Comments GLUCOSE RANDOM (BEAKER) (test code 220 mg/dL 70-110 H = 652) HGB/HCT (H&H) - STAT [id number] 12:28:00 Test Item Value Reference Range Interpretation Comments HEMOGLOBIN (BEAKER) (test code = 8.6 g/dL 13.0-16.8 L 410) HEMATOCRIT (BEAKER) (test code = 25.0 % 40.0-50.0 L 411) BLOOD GAS, [id number] 11:39:00 Test Item Value Reference Range Interpretation [...] code = 1819) 65.0 % SODIUM NA-STAT [id number] 11:39:00 Test Item Value Reference Range Interpretation Comments SODIUM (BEAKER) (test code = 381) 132 meq/L 135-148 L POTASSIUM-STAT [id number] 11:39:00 Test Item Value Reference Range Interpretation Comments POTASSIUM (BEAKER) (test code = 5.7 meq/L 3.6-5.5 H 379) GLUCOSE-STAT [id number] 11:39:00 Test Item Value Reference Range Interpretation Comments GLUCOSE RANDOM (BEAKER) (test code 217 mg/dL 70-110 H = 652) HGB/HCT (H&H) - STAT [id number] 11:39:00 Test Item Value Reference Range Interpretation Comments HEMOGLOBIN (BEAKER) (test code = 7.6 g/dL 13.0-16.8 L 410) HEMATOCRIT (BEAKER) (test code = 22.0 % 40.0-50.0 L 411) PLATELET AGGREGATION: FUNCTION [id number] 11:26:00 Test Item Value Reference Range Interpretation Comments WEAK ADP 46 % 60-91 L RESULT(BEAKER) (test code = 2135) PLATELET FUNCTION 40-49% indicates SCREEN INTERP moderate platelet (BEAKER) (test code = dysfunction 2173) [id number] Brody Gaytan MD (BEAKER) (test code = (electronic signature) 2622) PLATELET COUNT AGG 236 K/CU MM 150-450 (BEAKER) (test code = 2656) Platelet Function Screen results may be falsely low with platelet counts<100,000/cu mm.for patients on clopidogrel in past two weeksfor patients on clopidogrel in past two weeksfor patients on clopidogrel in past two weeksPLATELET AGGREGATION: FUNCTION [id number] 11:25:00 Test Item Value Reference Range Interpretation Comments WEAK ADP 97 % 60-91 H RESULT(BEAKER) (test code = 213) PLATELET FUNCTION 60-100% indicates SCREEN INTERP (BEAKER) normal platelet (test code = 2173) function [id number] Brody Gaytan MD (BEAKER) (test code = (electronic signature) 2622) PLATELET COUNT AGG 206 K/CU MM 150-450 (BEAKER) (test code = 2656) Platelet Function Screen results may be falsely low with platelet counts<100,000/cu mm.SODIUM NA-STAT [id number] 09:03:00 Test Item Value Reference Range Interpretation Comments SODIUM (BEAKER) (test code = 381) 135 meq/L 135-148 POTASSIUM-STAT [id number] 09:03:00 Test Item Value Reference Range Interpretation Comments POTASSIUM (BEAKER) (test code = 4.1 meq/L 3.6-5.5 379) BLOOD GAS, [id number] 09:03:00 Test Item Value Reference Range Interpretation [...] (test code = 1819) 100.0 % GLUCOSE-STAT [id number] 09:03:00 Test Item Value Reference Range Interpretation Comments GLUCOSE RANDOM (BEAKER) (test code 146 mg/dL 70-110 H = 652) HGB/HCT (H&H) - STAT [id number] 09:03:00 Test Item Value Reference Range Interpretation Comments HEMOGLOBIN (BEAKER) (test code = 10.2 g/dL 13.0-16.8 L 410) HEMATOCRIT (BEAKER) (test code = 30.0 % 40.0-50.0 L 411) POCT-GLUCOSE [id number] 07:40:00 Test Item Value Reference Range Interpretation Comments POC-GLUCOSE METER 205 mg/dL 70-110 H TESTED AT [facility] 6720 (BEAKER) (test code = BRENDA Prieto [place] 1538) [id number] BASIC METABOLIC [id number] 07:21:00 Test Item Value Reference Range Interpretation [...] S NOT APPLICABLE FOR DIALYSIS PATIEN TS. [id number] 07:11:00 Test Item Value Reference Range Interpretation Comments PHOSPHORUS (BEAKER) (test code = 4.6 mg/dL 2.3-4.7 604) [id number] 07:11:00 Test Item Value Reference Range Interpretation Comments MAGNESIUM (BEAKER) (test code = 1.8 mg/dL 1.6-2.6 627) [id number] 07:01:00 Test Item Value Reference Range Interpretation [...] mechanical heart valves.CBC W/PLT COUNT & AUTO [id number] 06:55:00 Test Item Value Reference Range Interpretation [...] = 2801) RAD, CHEST, 1 VIEW, NON [id number] 01:36:00Reason for exam:->pre opShould this be performed [...] of an acute osseous abnormality. Signed: Chris Meier MDReport Verified Date/Time: 11/08/2018 01:36:48 Reading Location: [address] Reading Room [id number] 22:17:00 Test Item Value Reference Range Interpretation Comments PARTIAL THROMBOPLASTIN TIME 96.5 seconds 22.5-36.0 H ([facility]) (test code = 760) PROTHROMBIN [id number] 22:15:00 Test Item Value Reference Range Interpretation Comments PROTIME ([facility]) (test code = 15.0 seconds 11.9-14.2 H 759) INR ([facility]) (test code = 370) 1.2 <=5.9 Effective 10/20/2018: PT Reference Range ChangeNew: 11.9-14.2 Previous: 11.7- 14.7RECOMMENDED COUMADIN/WARFARIN INR THERAPY RANGESSTANDARD DOSE: 2.0-3.0 Includes: PROPHYLAXIS for venous thrombosis, systemic embolization; TREATMENT for venous thrombosis and/or pulmonary embolus.HIGH RISK: Target INR is2.5-3.5 for patients wiht mechanical heart valves.POCT-GLUCOSE [id number] 21:47:00 Test Item Value Reference Range Interpretation Comments POC-GLUCOSE METER 202 mg/dL 70-110 H TESTED AT [place] [address] ([facility]) (test code = JAKELESIA Prieto [facility] 1538) [address] POCT-GLUCOSE [id number] 17:15:00 Test Item Value Reference Range Interpretation Comments POC-GLUCOSE METER 230 mg/dL 70-110 H TESTED AT [place] [address] ([facility]) (test code = JAKELESIA Prieto [facility] 1538) [address] [id number] 15:36:00 Test Item Value Reference Range Interpretation Comments POTASSIUM ([facility]) 3.6 meq/L 3.5-5.1 Specimen slightly (test code = 379) hemolyzed POCT-GLUCOSE [id number] 12:00:00 Test Item Value Reference Range Interpretation Comments POC-GLUCOSE METER 145 mg/dL 70-110 H TESTED AT [place] [address] ([facility]) (test code = JAKELESIA Prieto [facility] 1538) [address] POCT-GLUCOSE [id number] 07:45:00 Test Item Value Reference Range Interpretation Comments POC-GLUCOSE METER 204 mg/dL 70-110 H TESTED AT [place] [address] ([facility]) (test code = JAKELESIA Prieto [facility] 1538) [address] BASIC METABOLIC [id number] 06:52:00 Test Item Value Reference Range Interpretation Comments SODIUM ([facility]) 135 meq/L 136-145 L (test code = [...] S NOT APPLICABLE FOR DIALYSIS PATIEN TS. [id number] 06:44:00 Test Item Value Reference Range Interpretation Comments MAGNESIUM (BEAKER) 2.2 mg/dL 1.6-2.6 Specimen slightly (test code = 627) hemolyzed [id number] 06:44:00 Test Item Value Reference Range Interpretation Comments PHOSPHORUS (BEAKER) 6.6 mg/dL 2.3-4.7 H Specimen slightly (test code = 604) hemolyzed [id number] 06:34:00 Test Item Value Reference Range Interpretation [...] mechanical heart valves.CBC W/PLT COUNT & AUTO [id number] 06:14:00 Test Item Value Reference Range Interpretation [...] (test code = 416) BASOPHILS ABSOLUTE COUNT ([facility]) 0.04 K/ L 0.01-0.08 (test code = 417) IMMATURE GRANULOCYTES-RELATIVE 1 % 0-1 PERCENT ([facility]) (test code = 2801) POCT-GLUCOSE [id number] 22:00:00 Test Item Value Reference Range Interpretation Comments POC-GLUCOSE METER 214 mg/dL 70-110 H TESTED AT [place] [address] ([facility]) (test code = [facility] 1538) [address] [id number] 18:44:00 Test Item Value Reference Range Interpretation Comments PARTIAL THROMBOPLASTIN TIME 79.0 seconds 22.5-36.0 H ([facility]) (test code = 760) POCT-GLUCOSE [id number] 16:38:00 Test Item Value Reference Range Interpretation Comments POC-GLUCOSE METER 194 mg/dL 70-110 H TESTED AT [place] [address] ([facility]) (test code = [facility] 1538) [address] [id number] 12:50:00 Test Item Value Reference Range Interpretation Comments PARTIAL THROMBOPLASTIN TIME 83.0 seconds 22.5-36.0 H ([facility]) (test code = 760) POCT-GLUCOSE [id number] 12:31:00 Test Item Value Reference Range Interpretation Comments POC-GLUCOSE METER 270 mg/dL 70-110 H TESTED AT [place] [address] ([facility]) (test code = [facility] 1538) [address] POCT-GLUCOSE [id number] 07:58:00 Test Item Value Reference Range Interpretation Comments POC-GLUCOSE METER 212 mg/dL 70-110 H TESTED AT [place] [address] ([facility]) (test code = [facility] 1538) [address] CBC W/PLT COUNT & AUTO [id number] 05:56:00 Test Item Value Reference Range Interpretation Comments WHITE BLOOD CELL COUNT ([facility]) 5.9 K/ L 3.5-10.5 (test code = 775) RED BLOOD CELL COUNT ([facility]) 3.71 M/ L 4.63-6.08 L (test code = 761) HEMOGLOBIN (AKER) (test code = 11.1 GM/DL 13.7-17.5 L [...] 0-1 PERCENT (BEAKER) (test code = 2801) [id number] 05:43:00 Test Item Value Reference Range Interpretation Comments PARTIAL THROMBOPLASTIN TIME 43.1 seconds 22.5-36.0 H (BEAKER) (test code = 760) BASIC METABOLIC [id number] 04:36:00 Test Item Value Reference Range Interpretation [...] S NOT APPLICABLE FOR DIALYSIS PATIEN TS. [id number] 04:22:00 Test Item Value Reference Range Interpretation Comments PHOSPHORUS (BEAKER) (test code = 5.6 mg/dL 2.3-4.7 H 604) [id number] 04:22:00 Test Item Value Reference Range Interpretation Comments MAGNESIUM (BEAKER) (test code = 2.0 mg/dL 1.6-2.6 627) POCT-GLUCOSE [id number] 21:27:00 Test Item Value Reference Range Interpretation Comments POC-GLUCOSE METER 170 mg/dL 70-110 H TESTED AT [place] [address] ([facility] (test code = BRENDA RAMIREZ [place] 15[address] POCT-GLUCOSE [id number] 18:29:00 Test Item Value Reference Range Interpretation Comments POC-GLUCOSE METER 315 mg/dL 70-110 H Notified R Cali CARRILLO/TESTED (BEAKER) (test code = AT [facility] [address] [address]) [facility] [address] POCT-GLUCOSE [id number] 12:33:00 Test Item Value Reference Range Interpretation Comments POC-GLUCOSE METER 78 mg/dL 70-110 TESTED AT [place] [id number] ([facility]) (test code = BRENDA Prieto [facility] [address]38) POCT-GLUCOSE [id number] 07:53:00 Test Item Value Reference Range Interpretation Comments POC-GLUCOSE METER 177 mg/dL 70-110 H TESTED AT [facility] 6720 (BEAKER) (test code = BRENDA ELL[place] 1538) [address] [id number] 05:58:00 Test Item Value Reference Range Interpretation [...] 20-55 (test code = 2590) BASIC METABOLIC [id number] 05:28:00 Test Item Value Reference Range Interpretation [...] S NOT APPLICABLE FOR DIALYSIS PATIEN TS. [id number] 05:24:00 Test Item Value Reference Range Interpretation Comments PHOSPHORUS (BEAKER) (test code = 7.5 mg/dL 2.3-4.7 H 604) [id number] 05:24:00 Test Item Value Reference Range Interpretation Comments MAGNESIUM (BEAKER) (test code = 2.0 mg/dL 1.6-2.6 627) [id number] 05:12:00 Test Item Value Reference Range Interpretation Comments PARTIAL THROMBOPLASTIN TIME 66.3 seconds 22.5-36.0 H (BEAKER) (test code = 760) CBC W/PLT COUNT & AUTO [id number] 05:00:00 Test Item Value Reference Range Interpretation [...] 417) IMMATURE GRANULOCYTES-RELATIVE 0 % 0-1 PERCENT ([facility]) (test code = 2801) [id number] 23:22:00 Test Item Value Reference Range Interpretation Comments PARTIAL THROMBOPLASTIN TIME 64.9 seconds 22.5-36.0 H ([facility]) (test code = 760) POCT-GLUCOSE [id number] 21:01:00 Test Item Value Reference Range Interpretation Comments POC-GLUCOSE METER 113 mg/dL 70-110 H TESTED AT [place] [address] ([facility]) (test code = [facility] 1538) [address] POCT-GLUCOSE [id number] 17:00:00 Test Item Value Reference Range Interpretation Comments POC-GLUCOSE METER 79 mg/dL 70-110 TESTED AT [place] [address] ([facility]) (test code = [facility] [address] 1538) [id number] 15:58:00 Test Item Value Reference Range Interpretation Comments PARTIAL THROMBOPLASTIN TIME 45.3 seconds 22.5-36.0 H ([facility]) (test code = 760) [id number] 13:49:00 Test Item Value Reference Range Interpretation Comments PARTIAL THROMBOPLASTIN TIME 198.1 seconds 22.5-36.0 HH ([facility]) (test code = 760) POCT-GLUCOSE [id number] 11:52:00 Test Item Value Reference Range Interpretation Comments POC-GLUCOSE METER 201 mg/dL 70-110 H TESTED AT [place] [address] ([facility]) (test code = [facility] 1538) [address] POCT-GLUCOSE [id number] 07:48:00 Test Item Value Reference Range Interpretation Comments POC-GLUCOSE METER 194 mg/dL 70-110 H TESTED AT [place] [address] ([facility]) (test code = [facility] 1538) [address] BASIC METABOLIC [id number] 07:26:00 Test Item Value Reference Range Interpretation [...] S NOT APPLICABLE FOR DIALYSIS PATIEN TS. [id number] 07:21:00 Test Item Value Reference Range Interpretation Comments PHOSPHORUS (BEAKER) 6.0 mg/dL 2.3-4.7 H Specimen slightly (test code = 604) hemolyzed HEPATIC FUNCTION [id number] 07:21:00 Test Item Value Reference Range Interpretation [...] Specimen slightly (test code = 347) hemolyzed [id number] 07:20:00 Test Item Value Reference Range Interpretation Comments MAGNESIUM (BEAKER) 2.2 mg/dL 1.6-2.6 Specimen slightly (test code = 627) hemolyzed CBC W/PLT COUNT & AUTO [id number] 07:03:00 Test Item Value Reference Range Interpretation [...] 0-1 PERCENT (BEAKER) (test code = 2801) [id number] 05:37:00 Test Item Value Reference Range Interpretation [...] is2.5-3.5 for patients wiht mechanical heart valves.POCT-GLUCOSE [id number] 21:36:00 Test Item Value Reference Range Interpretation Comments POC-GLUCOSE METER 130 mg/dL 70-110 H TESTED AT [facility] 6720 ([facility]) (test code = BRENDA RAMIREZ [place] 1538) [address] [id number] 21:31:00 Test Item Value Reference Range Interpretation [...] patients wiht mechanical heart valves.HEPATITIS B SURFACE [id number] 19:20:00 Test Item Value Reference Range Interpretation Comments HEPATITIS B SURFACE ANTIGEN (2) Nonreactive Nonreactive ([employer] (test code = 2585) [id number] 17:47:00 Test Item Value Reference Range Interpretation Comments PROTIME ([employer] (test code = 13.2 seconds 11.9-14.2 759) INR ([employer] (test code = 370) 1.0 <=5.9 PARTIAL THROMBOPLASTIN TIME 71.3 seconds 22.5-36.0 H ([facility]) (test code = 760) Effective 10/20/2018: PT Reference Range ChangeNew: 11.9-14.2 Previous: 11.7- 14.7RECOMMENDED COUMADIN/WARFARIN INR THERAPY RANGESSTANDARD DOSE: 2.0-3.0 Includes: PROPHYLAXIS for venous thrombosis, systemic embolization; TREATMENT for venous thrombosis and/or pulmonary embolus.HIGH RISK: Target INR is2.5-3.5 for patients wiht mechanical heart valves.POCT-GLUCOSE [id number] 16:51:00 Test Item Value Reference Range Interpretation Comments POC-GLUCOSE METER 72 mg/dL 70-110 TESTED AT [facility] 6720 ([facility]) (test code = BRENDA Prieto [facility] [address] 1538) PLATELET AGGREGATION: FUNCTION [id number] 16:05:00 Test Item Value Reference Range Interpretation Comments WEAK ADP 62 % 60-91 RESULT([employer] (test code = 2135) PLATELET FUNCTION 60-100% indicates SCREEN INTERP ([facility]) normal platelet (test code = 2173) function [id number] Billie Pollock MD ([facility]) (test code = (electronic signature) 7278) PLATELET COUNT AGG 263 K/CU MM 150-450 (AKER) (test code = 2656) Platelet Function Screen results may be falsely low with platelet counts<100,000/cu mm.POCT-GLUCOSE [id number] 12:37:00 Test Item Value Reference Range Interpretation Comments POC-GLUCOSE METER 206 mg/dL 70-110 H TESTED AT [facility] 6720 (BEAKER) (test code = BRENDA Prieto [place] 1538) [address] HEMOGLOBIN [id number] 11:12:00 Test Item Value Reference Range Interpretation Comments HEMOGLOBIN A1C (BEAKER) (test code = 7.4 % 4.3-6.1 H 368) POCT-GLUCOSE [id number] 07:21:00 Test Item Value Reference Range Interpretation Comments POC-GLUCOSE METER 109 mg/dL 70-110 TESTED AT [facility] 6720 ([facility] (test code = BRENDA Prieto [place] 1538) [address] BASIC METABOLIC [id number] 06:55:00 Test Item Value Reference Range Interpretation [...] S NOT APPLICABLE FOR DIALYSIS PATIEN TS. [id number] 06:53:00 Test Item Value Reference Range Interpretation Comments MAGNESIUM (BEAKER) 2.5 mg/dL 1.6-2.6 Specimen slightly (test code = 627) hemolyzed [id number] 06:38:00 Test Item Value Reference Range Interpretation [...] 0-0 (BEAKER) (test code = 413) POCT-GLUCOSE [id number] 00:17:00 Test Item Value Reference Range Interpretation Comments POC-GLUCOSE METER 301 mg/dL 70-110 H Notified R N MD/TESTED (BEAKER) (test code = AT [facility] [address] [address]) [place] [address] [id number] 20:44:00 Test Item Value Reference Range Interpretation Comments PARTIAL THROMBOPLASTIN TIME 34.1 seconds 22.5-36.0 (BEAKER) (test code = 760) Prior to initiating heparinPLATELET [id number] 20:37:00 Test Item Value Reference Range Interpretation Comments PLATELET COUNT (BEAKER) (test 257 K/CU MM 150-450 code = 756) POTASSIUM-STAT [id number] 10:59:00 Test Item Value Reference Range Interpretation Comments POTASSIUM (BEAKER) (test code = 5.3 meq/L 3.6-5.5 379) BASIC METABOLIC [id number] 10:19:00 Test Item Value Reference Range Interpretation [...] S NOT APPLICABLE FOR DIALYSIS PATIEN TS. [id number] 10:15:00 Test Item Value Reference Range Interpretation [...] mechanical heart valves.CBC W/PLT COUNT & AUTO [id number] 10:02:00 Test Item Value Reference Range Interpretation [...] code = 2801) MYOCARD IMAGING, MULTI, PHARM, [id number] 16:25:00FINAL REPORT PROCEDURE: MYOCARDIAL PERFUSION SPECT IMAGING (Rest/Stress)CPT CODE: 57035 INDICATION: Renal transplant evaluation CARDIOVASCULAR PROFILE:CAD History: [...] MDReport Verified Date/Time: 09/30/2018 16:25:13 Reading Location[address] OCCULT BLOOD, [id number] 17:11:00 Test Item Value Reference Range Interpretation Comments FECAL OCCULT BLOOD (BEAKER) (test Positive Negative A code = 618) OCCULT BLOOD, [id number] 17:02:00 Test Item Value Reference Range Interpretation Comments FECAL OCCULT BLOOD (BEAKER) (test Negative Negative code = 618) POCT-GLUCOSE [id number] 11:41:00 Test Item Value Reference Range Interpretation Comments POC-GLUCOSE METER 161 mg/dL 70-110 H TESTED AT [place] [address] (BEAKER) (test code = [facility] [place] [facility] 1538) [address] HEPATITIS B SURFACE [id number] 08:02:00 Test Item Value Reference Range Interpretation Comments HEPATITIS B SURFACE ANTIGEN (2) Nonreactive Nonreactive (BEAKER) (test code = 2585) For chronic HD patients, draw HBsAg with each admission then every 30 days.POCT- GLUCOSE [id number] 07:52:00 Test Item Value Reference Range Interpretation Comments POC-GLUCOSE METER 98 mg/dL 70-110 TESTED AT [place] [address] (BEAKER) (test code = [facility] [place] [facility] [id number] 1538) BASIC METABOLIC [id number] 05:13:00 Test Item Value Reference Range Interpretation [...] WBC 0-0 (BEAKER) (test code = 413) [id number] 05:03:00 Test Item Value Reference Range Interpretation Comments MAGNESIUM (BEAKER) 2.6 mg/dL 1.6-2.6 Specimen moderately (test code = 627) hemolyzed POCT-GLUCOSE [id number] 23:31:00 Test Item Value Reference Range Interpretation Comments POC-GLUCOSE METER 109 mg/dL 70-110 TESTED AT [facility] 6720 (BEAKER) (test code = BRENDA RAMIREZ [place] 1538) [id number] 20:10:00 Test Item Value Reference Range Interpretation Comments ACTIVATED CLOTTING TIME 131 sec TEST ED AT [place] [address] ([facility]) (test code = BRENDA Prieto [facility] 441) [id number] 18:55:00 Test Item Value Reference Range Interpretation Comments POTASSIUM ([facility]) (test code = 5.0 meq/L 3.5-5.1 379) [id number] 18:36:00 Test Item Value Reference Range Interpretation Comments ACTIVATED CLOTTING TIME 147 sec TEST ED AT [place] [address] ([facility]) (test code = BRENDA Prieto [facility] 441) [id number] POCT-GLUCOSE [id number] 16:22:00 Test Item Value Reference Range Interpretation Comments POC-GLUCOSE METER 82 mg/dL 70-110 TESTED AT [place] [address] ([facility]) (test code = BRENDA Prieto [facility] [address] 1538) [id number] 15:40:00 Test Item Value Reference Range Interpretation Comments ACTIVATED CLOTTING TIME 208 sec TEST ED AT [place] [address] ([facility]) (test code = BRENDA Prieto [facility] 441) [id number] 14:31:00 Test Item Value Reference Range Interpretation Comments ACTIVATED CLOTTING TIME 224 sec TEST ED AT [place] [address] ([facility]) (test code = BRENDA Prieto [facility] 441) [id number] 14:31:00 Test Item Value Reference Range Interpretation Comments ACTIVATED CLOTTING TIME 411 sec TEST ED AT [place] [address] ([facility]) (test code = BRENDA Prieto [facility] 441) [id number] POCT-GLUCOSE [id number] 13:29:00 Test Item Value Reference Range Interpretation Comments POC-GLUCOSE METER 130 mg/dL 70-110 H TESTED AT [place] [address] ([facility]) (test code = BRENDA Prieto [facility] 1538) [id number] POCT-GLUCOSE [id number] 13:01:00 Test Item Value Reference Range Interpretation Comments POC-GLUCOSE METER 32 mg/dL 70-110 LL Notified R Cali CARRILLO/TESTED AT ([facility]) (test code = [place] [address] MARYAM 1538) [facility] 7703 0 CBC W/PLT COUNT & AUTO [id number] 11:07:00 Test Item Value Reference Range Interpretation [...] 0.00-0.20 (test code = 417) 0.00BASIC METABOLIC [id number] 10:53:00 Test Item Value Reference Range Interpretation [...] S NOT APPLICABLE FOR DIALYSIS PATIEN TS. [id number] 10:44:00 Test Item Value Reference Range Interpretation [...] mechanical heart valves.FLOW PRA CLASS I AND [id number] 11:51:00 Test Item Value Reference Range Interpretation Comments DATE OF SERUM (BEAKER) 5230531 (test code = 2289) SERUM # (BEAKER) (test 715789 code = 9417) FLOW PRA CLASS I AND II See Scanned Report (test code = 2421) HLA [id number] 11:51:00 Test Item Value Reference Range Interpretation [...] (BEAKER) (test code = 2583) EBV-VCA ANTIBODY, [id number] 14:35:00 Test Item Value Reference Range Interpretation Comments ROLDAN-THOMAS VCA IGM (BEAKER) (test Negative code = 984) VARICELLA ZOSTER ANTIBODY, [id number] 12:16:00 Test Item Value Reference Range Interpretation Comments VARICELLA ZOSTER IGG (AL) (BEAKER) 1.6 Al (test code = 3197) VARICELLA ZOSTER RESULT INTERPRETATIONS: <=0.8 Al Nonreactive: Presumed non-immune to VZV 0.9-1.0 Al Equivocal >=1.1 Al Reactive: Presumed immune to VZVCYTOMEGALOVIRUS ANTIBODY, [id number] 12:11:00 Test Item Value Reference Range Interpretation Comments CYTOMEGALOVIRUS IGG ANTIBODY Positive (BEAKER) (test code = 790) CYTOMEGALOVIRUS ANTIBODY, [id number] 12:11:00 Test Item Value Reference Range Interpretation Comments CYTOMEGALOVIRUS IGM ANTIBODY Negative (BEAKER) (test code = 816) EBV-VCA ANTIBODY, [id number] 12:11:00 Test Item Value Reference Range Interpretation Comments ROLDAN-THOMAS VCA IGG (BEAKER) (test Positive code = 983) [id number] 11:41:00 Test Item Value Reference Range Interpretation Comments RPR SCREEN (BEAKER) (test code = Nonreactive Nonreactive 420) HEPATITIS B SURFACE [id number] 14:42:00 Test Item Value Reference Range Interpretation Comments HEPATITIS B SURFACE ANTIBODY 9.6 mIU/mL <8.0 H (BEAKER) (test code = 647) HEPATITIS B SURFACE [id number] 14:12:00 Test Item Value Reference Range Interpretation Comments HEPATITIS B SURFACE ANTIGEN (2) Nonreactive Nonreactive (BEAKER) (test code = 2585) HEPATITIS B CORE ANTIBODY, [id number] 14:12:00 Test Item Value Reference Range Interpretation Comments HEPATITIS B CORE IGM ANTIBODY Nonreactive Nonreactive (BEAKER) (test code = 645) HEPATITIS C [id number] 14:12:00 Test Item Value Reference Range Interpretation Comments HEPATITIS C ANTIBODY (BEAKER) Nonreactive Nonreactive (test code = 367) HIV-1 ANTIGEN WITH HIV-1/2 [id number] 14:12:00 Test Item Value Reference Range Interpretation Comments HIV-1 ANTIGEN WITH HIV 1\\T\\2 Nonreactive Nonreactive ANTIBODY (2) (BEAKER) (test code = 2586) [id number] 14:12:00 Test Item Value Reference Range Interpretation Comments PROSTATE SPECIFIC ANTIGEN (BEAKER) 0.7 ng/mL 0.0-4.0 (test code = 844) COMPREHENSIVE METABOLIC [id number] 13:58:00 Test Item Value Reference Range Interpretation [...] NOT APPLICABLE FOR DIALYSIS PATIEN TS. PTH, [id number] 13:52:00 Test Item Value Reference Range Interpretation Comments PARATHYROID HORMONE INTACT 289.5 pg/mL 8.5-72.5 H (BEAKER) (test code = 577) Effective 04/11/2014: Reference Range ChangeNew: 8.5-72.5 Previous: 15.0-90.0 URIC [id number] 13:52:00 Test Item Value Reference Range Interpretation Comments URIC ACID (BEAKER) (test code = 3.9 mg/dL 2.6-7.2 773) [id number] 13:52:00 Test Item Value Reference Range Interpretation Comments PHOSPHORUS (BEAKER) (test code = 3.3 mg/dL 2.3-4.7 604) LIPID [id number] 13:52:00 Test Item Value Reference Range Interpretation [...] 161 U/L 125-220 code = 635) HEMOGLOBIN [id number] 13:32:00 Test Item Value Reference Range Interpretation Comments HEMOGLOBIN A1C (BEAKER) (test code = 5.9 % 4.3-6.1 368) CBC W/PLT COUNT & AUTO [id number] 13:32:00 Test Item Value Reference Range Interpretation [...] K/ L 0.00-0.20 (test code = 417) 0.00PT/[id number] 13:18:00 Test Item Value Reference Range Interpretation [...]
[2021-04-30] MEDS ORDERED: ONDANSETRON 4 MG/2 ML VIAL ONE (12:08)
[2021-04-30] MEDS ORDERED: NA CHLORIDE 0.9% 100 ML ONE (12:08)
[2021-04-30] MEDS ORDERED: VANCOMYCIN 1 GM/VIAL ONE (12:08)
[2021-04-30] MEDS ORDERED: PIPERACIL/TAZO 3.375 GM VIAL IV ONE (12:08)
[2021-04-30] MEDS ORDERED: NA CHLORIDE 0.9% 250 ML ONE (12:08)
[2021-04-30] MEDS ORDERED: MORPHINE 2 MG/ML SYR ONE ×2 (12:08→13:58)
--- NOTE | 2021-04-30 12:25 | ER ---
Nurse's Notes [facility] Name: Shekhar Gambino Age: 56 yrs Sex: Male : 1965 Arrival Date: 04/30/2021 Time: 10:57 Bed 17 Private MD: Izabela Lemos C Diagnosis: Type 1 diabetes mellitus with hyperglycemia;End stage renal disease-with HD M,W,F;Infection following a procedure-LEFT TMA 02/26;Personal history of diabetic foot ulcer Presentation: 04/30 11:02 Chief complaint: Patient's son or daughter states: had toes amputated from left foot on iw 02-26, home health nurse sent him here, surgery was done at [facility]. Coronavirus screen: At this time, the client does not indicate any symptoms associated with coronavirus-19. Ebola Screen: Patient negative for fever greater than or equal to 101.5 degrees Fahrenheit, and additional compatible Ebola Virus Disease symptoms Patient denies exposure to infectious person. Patient denies travel to an Ebola-affected area in the 21 days before illness onset. No symptoms or risks identified at this time. Initial Sepsis Screen: Does the patient meet any 2 criteria? No. Patient's initial sepsis screen is negative. Does the patient have a suspected source of infection? No. Patient's initial sepsis screen is negative. Risk Assessment: Do you want to hurt yourself or someone else? Patient reports no desire to harm self or others. Onset of symptoms was April 30, 2021. 11:02 Method Of Arrival: Wheelchair iw 11:02 Acuity: AZAEL 2 iw 11:02 Acuity: AZAEL 3 Triage Assessment: 11:05 General: Appears uncomfortable, Behavior is calm, cooperative, appropriate for age. ll1 Pain: Complains of pain in left foot Quality of pain is described as aching, throbbing, Aggravated by increased activity. Neuro: No deficits noted. Cardiovascular: No deficits noted. Respiratory: No deficits noted. Derm: Wound noted left foot Wound is s/p all toes amputation. Proximal aspect of wound is black along the edge with foul odor. Macerated skin just below surgical wound. Musculoskeletal: Circulation, motion, and sensation intact. Capillary refill < 3 seconds, Reports pain in left foot. Historical: - Allergies: 11: Eliquis; iw - Home Meds: 11:03 clopidogrel 75 mg oral tab 1 tab once daily [Active]; aspirin 81 mg Oral TbEC 1 tab iw once daily [Active]; atorvastatin oral [Active]; - PMHx: 11:03 Diabetes - IDDM; Dialysis; High Cholesterol; iw - PSHx: 11:03 left toe amputation; Coronary artery bypass graft; glaucoma; iw - Immunization history:: Client reports receiving the 2nd dose of the Covid vaccine. - Social history:: Smoking status: Patient denies any tobacco usage or history of. - Family history:: pertinent for. Screenin:17 Abuse screen: Denies threats or abuse. Nutritional screening: No deficits noted. ll1 Tuberculosis screening: No symptoms or risk factors identified. Fall Risk Secondary diagnosis (15 points) impaired mobility, IV access (20 points). Ambulatory Aid- Crutches/Cane/Walker (15 pts). Gait- Impaired (20 pts.). Total Lei Fall Scale indicates High Risk Score (45 or more points). Fall prevention measures have been instituted. Side Rails Up X 2 Placed Close to Nursing Station Frequent Obs/Assessments Occuring Family Present and informed to notify staff if the need to leave the bedside As available patient and family educated on Fall Prevention Program and Strategies. Assessment: 12:00 Reassessment: No changes from previously documented assessment. Patient and/or family ll1 updated on plan of care and expected duration. Pain level reassessed. Patient is alert, oriented x 3, equal unlabored respirations, skin warm/dry/pink. 13:00 Reassessment: No changes from previously documented assessment. Patient and/or family ll1 updated on plan of care and expected duration. Pain level reassessed. Patient is alert, oriented x 3, equal unlabored respirations, skin warm/dry/pink. 14:00 Reassessment: No changes from previously documented assessment. Patient and/or family ll1 updated on plan of care and expected duration. Pain level reassessed. Patient is alert, oriented x 3, equal unlabored respirations, skin warm/dry/pink. 15:00 Reassessment: No changes from previously documented assessment. Patient and/or family ll1 updated on plan of care and expected duration. Pain level reassessed. Patient is alert, oriented x 3, equal unlabored respirations, skin warm/dry/pink. 16:00 Reassessment: No changes from previously documented assessment. Patient and/or family ll1 updated on plan of care and expected duration. Pain level reassessed. Patient is alert, oriented x 3, equal unlabored respirations, skin warm/dry/pink. 17:00 Reassessment: No changes from previously documented assessment. Patient and/or family ll1 updated on plan of care and expected duration. Pain level reassessed. Patient is alert, oriented x 3, equal unlabored respirations, skin warm/dry/pink. 18:00 Reassessment: No changes from previously documented assessment. Patient and/or family ll1 updated on plan of care and expected duration. Pain level reassessed. Patient is alert, oriented x 3, equal unlabored respirations, skin warm/dry/pink. 19:00 Reassessment: No changes from previously documented assessment. Patient and/or family ll1 updated on plan of care and expected duration. Pain level reassessed. Patient is alert, oriented x 3, equal unlabored respirations, skin warm/dry/pink. Vital Signs: 11:02 BP 112 / 61; Pulse 86; Resp 16; Pulse Ox 100% on R/A; Weight 86.18 kg; Height 5 ft. 5 iw in. (165.10 cm); 15:50 BP 126 / 70; Pulse 81; Resp 18; Temp 98.0; Pulse Ox 100% on R/A; ll1 18:19 BP 130 / 60; Pulse 80; Resp 18; Pulse Ox 99% ; ll1 19:00 BP 131 / 61; Pulse 80; Resp 17; Pulse Ox 100% ; ll1 11:02 Body Mass Index 31.62 (86.18 kg, 165.10 cm) iw ED Course: 10:57 Patient arrived in ED. am2 10:57 Izabela Lemos MD is Private Physician. am2 11:03 Triage completed. iw 11:05 Arm band placed on. iw 11:16 Lucius Campos, LUCIA is Primary Nurse. ll1 11:17 Patient placed in an exam room, on a stretcher. ll1 11:17 Patient has correct armband on for positive identification. Bed in low position. Call ll1 light in reach. Side rails up X 1. 11:21 Johann Gary MD is Attending Physician. vivienne 12:00 Dressings: ABD pad X 2; left foot Kerlix X 1; left foot 4X4s X 3; left foot loose boni ll1 wrap over site. 12:20 Izabela Lemos MD is Hospitalizing Provider. [facility] 12:30 Inserted saline lock: 18 gauge in left EJ, using aseptic technique. Blood collected. ll1 14:00 Dressings: ABD pad X 2; left foot Kerlix X 1; left foot 4X4s X 3; left foot Bedside ll1 debridement by Dr[address] Ley. loose boni wrap over wet to dry dressing. 14:28 initiated transfer to [facility]. bd 15:50 Wound Culture Sent. ll1 19:00 No provider procedures requiring assistance completed. Patient transferred, IV remains ll1 in place. Administered Medications: 11:55 Drug: Zofran (Ondansetron) 4 mg Route: IVP; Site: left jugular; ll1 15:55 Follow up: Response: No adverse reaction 1 12:55 Drug: morphine 2 mg Route: IVP; Site: left jugular; 1 13:05 Drug: Zosyn (piperacillin-tazobactam) 3.375 grams Route: IVPB; Infused Over: 60 mins; 1 Site: left jugular; 15:54 Follow up: Response: No adverse reaction; IV Status: Completed infusion; IV Intake: ll1 100ml 13:35 Drug: vancoMYCIN 1 grams Route: IVPB; Infused Over: 2 hrs; Site: left jugular; 15:54 Follow up: Response: No adverse reaction; IV Status: Completed infusion; IV Intake: ll1 250ml 14:30 Drug: morphine 2 mg Route: IVP; Site: left jugular; ll1 15:55 Follow up: Response: No adverse reaction ll1 15:55 Follow up: Response: No adverse reaction ll1 15:50 Drug: Dilaudid (HYDROmorphone) 0.5 mg Route: IVP; Site: left jugular; ll1 18:21 Follow up: Response: No adverse reaction; Pain is decreased; RASS: Alert and Calm (0) ll1 18:55 Drug: Dilaudid (HYDROmorphone) 0.5 mg Route: IVP; Site: left jugular; ll1 19:03 Follow up: Response: No adverse reaction ll1 Intake: 15:54 IV: 100ml; Total: 100ml. ll1 15:54 IV: 250ml; Total: 350ml. ll1 Outcome: 12:24 Decision to Hospitalize by Provider. vivienne 14:04 ER care complete, transfer ordered by . [facility] 17:10 Transferred by ground EMS to [facility], Transfer form completed. ll1 Note: report given to Keara Villar RN at [facility]. 17:10 Condition: stable 19:00 Patient left the ED. ll1 Signatures: Genesis Larson Corey, MD MD cha Williams, Irene, RN Sharmaine Hines Lynsay, RN RN ll1 Corrections: (The following items were deleted from the chart) 11:05 11:03 PMHx: Hypertension; iw 16:00 15:50 BP 126 / 70; Pulse 81bpm; Resp 18bpm; Pulse Ox 100% RA; ll1 ll1
--- NOTE | 2021-04-30 12:25 | EDPHYS ---
Physician Documentation [facility] Name: Shekhar Gambino Age: 56 yrs Sex: Male : 1965 Arrival Date: 04/30/2021 Time: 10:57 Bed 17 Private MD: Izabela Lemos C ED Physician Johann Gary HPI: 04/30 12:15 This 56 yrs old Male presents to ER via Wheelchair with complaints of Foot vivienne Pain - infection. 12:15 The patient presents with pain, swelling, tenderness. The complaints affect the left vivienne foot, arch of left foot and dorsum of left foot. Context: The problem was sustained at an unknown location. Onset: The symptoms/episode began/occurred 1 week(s) ago. Modifying factors: The symptoms are alleviated by nothing, the symptoms are aggravated by weight bearing, movement. Associated signs and symptoms: The patient has no apparent associated signs or symptoms. Severity of symptoms: At their worst the symptoms were moderate, in the emergency department the symptoms are unchanged. The patient has not experienced similar symptoms in the past. Historical: - Allergies: 11:03 Eliquis; iw - Home Meds: 11:03 clopidogrel 75 mg oral tab 1 tab once daily [Active]; aspirin 81 mg Oral TbEC 1 tab iw once daily [Active]; atorvastatin oral [Active]; - PMHx: 11:03 Diabetes - IDDM; Dialysis; High Cholesterol; iw - PSHx: 11:03 left toe amputation; Coronary artery bypass graft; glaucoma; iw - Immunization history:: Client reports receiving the 2nd dose of the Covid vaccine. - Social history:: Smoking status: Patient denies any tobacco usage or history of. - Family history:: pertinent for. ROS: 12:15 MS/extremity: Positive for decreased range of motion, pain, swelling, tenderness, vivienne warmth, of the arch of left foot and dorsum of left foot. 12:15 Constitutional: Negative for fever, chills, and weight loss, Eyes: Negative for injury, pain, redness, and discharge, ENT: Negative for injury, pain, and discharge, Neck: Negative for injury, pain, and swelling, Cardiovascular: Negative for chest pain, palpitations, and edema, Respiratory: Negative for shortness of breath, cough, wheezing, and pleuritic chest pain, Abdomen/GI: Negative for abdominal pain, nausea, vomiting, diarrhea, and constipation, Back: Negative for injury and pain, : Negative for injury, bleeding, discharge, and swelling, Skin: Negative for injury, rash, and discoloration, Neuro: Negative for headache, weakness, numbness, tingling, and seizure, Psych: Negative for depression, anxiety, suicide ideation, homicidal ideation, and hallucinations, Allergy/Immunology: Negative for hives, rash, and allergies, Endocrine: Negative for neck swelling, polydipsia, polyuria, polyphagia, and marked weight changes, Hematologic/Lymphatic: Negative for swollen nodes, abnormal bleeding, and unusual bruising. 12:15 MS/extremity: Positive for decreased range of motion, pain, swelling, tenderness, warmth. Exam: 12:15 Constitutional: This is a well developed, well nourished patient who is awake, alert, vivienne and in no acute distress. Head/Face: Normocephalic, atraumatic. Eyes: Pupils equal round and reactive to light, extra-ocular motions intact. Lids and lashes normal. Conjunctiva and sclera are non-icteric and not injected. Cornea within normal limits. Periorbital areas with no swelling, redness, or edema. ENT: Nares patent. No nasal discharge, no septal abnormalities noted. Tympanic membranes are normal and external auditory canals are clear. Oropharynx with no redness, swelling, or masses, exudates, or evidence of obstruction, uvula midline. Mucous membranes moist. Neck: Trachea midline, no thyromegaly or masses palpated, and no cervical lymphadenopathy. Supple, full range of motion without nuchal rigidity, or vertebral point tenderness. No Meningismus. Chest/axilla: Normal chest wall appearance and motion. Nontender with no deformity. No lesions are appreciated. Cardiovascular: Regular rate and rhythm with a normal S1 and S2. No gallops, murmurs, or rubs. Normal PMI, no JVD. No pulse deficits. Respiratory: Lungs have equal breath sounds bilaterally, clear to auscultation and percussion. No rales, rhonchi or wheezes noted. No increased work of breathing, no retractions or nasal flaring. Abdomen/GI: Soft, non-tender, with normal bowel sounds. No distension or tympany. No guarding or rebound. No evidence of tenderness throughout. Back: No spinal tenderness. No costovertebral tenderness. Full range of motion. Male : Normal genitalia with no discharge or lesions. Neuro: Awake and alert, GCS 15, oriented to person, place, time, and situation. Cranial nerves II-XII grossly intact. Motor strength 5/5 in all extremities. Sensory grossly intact. Cerebellar exam normal. Normal gait. Psych: Awake, alert, with orientation to person, place and time. Behavior, mood, and affect are within normal limits. 12:15 Musculoskeletal/extremity: ROM: full active range of motion, full passive range of motion, Circulation is intact in all extremities. Severe pain noted. Compartment Syndrome exam of affected extremity: is normal. 12:15 Skin: cellulitis, that is mild, induration, that is mild is noted. 12:15 Neuro: Orientation: is normal, appropriate for stated age, no acute changes, Mentation: is normal, appropriate for stated age, no acute changes, Memory: is normal, appropriate for stated age, no acute changes, Cranial nerves: grossly normal, is grossly normal based on the patient's age, no acute changes, Cerebellar function: is grossly normal, is grossly normal based on the patient's age, no acute changes, Motor: moves all fours, Sensation: no obvious gross deficits, appropriate no acute changes, Gait: not tested. Babinski testing is not performed, seizure activity, is not displayed by the patient. Vital Signs: 11:02 BP 112 / 61; Pulse 86; Resp 16; Pulse Ox 100% on R/A; Weight 86.18 kg; Height 5 ft. 5 iw in. (165.10 cm); 15:50 BP 126 / 70; Pulse 81; Resp 18; Temp 98.0; Pulse Ox 100% on R/A; ll1 18:19 BP 130 / 60; Pulse 80; Resp 18; Pulse Ox 99% ; ll1 19:00 BP 131 / 61; Pulse 80; Resp 17; Pulse Ox 100% ; ll1 11:02 Body Mass Index 31.62 (86.18 kg, 165.10 cm) iw Procedures: 12:46 Peripheral line: by aseptic technique a peripheral line was placed in the left external vivienne jugular vein. MDM: 11:21 Patient medically screened. [facility] 12:19 Differential diagnosis: fracture, sprain, cellulitis. Data reviewed: vital signs, [facility] nurses notes, lab test result(s), EKG, radiologic studies, plain films. Data interpreted: candlemaker: rate is 86 beats/min, rhythm is regular, Pulse oximetry: on room air is 100 %. Test interpretation: by ED physician or midlevel provider: ECG, plain radiologic studies. Counseling: I had a detailed discussion with the patient and/or guardian regarding: the historical points, exam findings, and any diagnostic results supporting the discharge/admit diagnosis, lab results, radiology results, the need for further work-up and treatment in the hospital. 04/30 12:00 Order name: Basic Metabolic Panel; Complete Time: 15:26 [facility] 04/30 12:00 Order name: CBC with Diff; Complete Time: 13:43 [facility] 04/30 12:00 Order name: LFT's; Complete Time: 15:26 [facility] 04/30 12:00 Order name: Magnesium; Complete Time: 15:26 [facility] 04/30 12:00 Order name: NT PRO-BNP; Complete Time: 15:26 [facility] 04/30 12:00 Order name: PT-INR; Complete Time: 13:43 [facility] 04/30 12:00 Order name: Troponin (emerg Dept Use Only); Complete Time: 15:26 [facility] 04/30 12:00 Order name: Sed Rate; Complete Time: 13:43 [facility] 04/30 12:00 Order name: SARS-COV-2 RT PCR (Document "Date of Onset" if Symptomatic); Complete Time: vivienne 15:26 04/30 12:03 Order name: Lactate; Complete Time: 13:43 [facility] 04/30 12:03 Order name: Blood Culture Adult (2) [facility] 04/30 12:53 Order name: Type And Screen [facility] 04/30 14:02 Order name: Type and Screen; Complete Time: 15:26 [facility] 04/30 14:07 Order name: Wound Culture ll1 04/30 12:00 Order name: XRAY Chest (1 view) [facility] 04/30 12:00 Order name: EKG; Complete Time: 12:00 [facility] 04/30 12:00 Order name: Cardiac monitoring; Complete Time: 13:30 [facility] 04/30 12:00 Order name: EKG - Nurse/Tech; Complete Time: 13:30 [facility] 04/30 12:00 Order name: IV Saline Lock; Complete Time: 13:05 [facility] 04/30 12:00 Order name: Labs collected and sent; Complete Time: 13:05 [facility] 04/30 12:00 Order name: Foot Left 3 View XRAY [facility] 04/30 12:32 Order name: CONS Physician Consult [facility] 04/30 12:32 Order name: CONS Physician Consult [facility] 04/30 13:11 Order name: RAD; Complete Time: 13:43 [facility] 04/30 13:11 Order name: RAD; Complete Time: 13:43 [facility] 04/30 12:00 Order name: O2 Per Protocol; Complete Time: 13:05 [facility] 04/30 12:00 Order name: O2 Sat Monitoring; Complete Time: 13:05 [facility] 04/30 12:00 Order name: Wound Care: wet to dry; Complete Time: 12:00 [facility] Administered Medications: 11:55 Drug: Zofran (Ondansetron) 4 mg Route: IVP; Site: left jugular; ll1 15:55 Follow up: Response: No adverse reaction ll1 12:55 Drug: morphine 2 mg Route: IVP; Site: left jugular; ll1 13:05 Drug: Zosyn (piperacillin-tazobactam) 3.375 grams Route: IVPB; Infused Over: 60 mins; ll1 Site: left jugular; 15:54 Follow up: Response: No adverse reaction; IV Status: Completed infusion; IV Intake: ll1 100ml 13:35 Drug: vancoMYCIN 1 grams Route: IVPB; Infused Over: 2 hrs; Site: left jugular; iw 15:54 Follow up: Response: No adverse reaction; IV Status: Completed infusion; IV Intake: ll1 250ml 14:30 Drug: morphine 2 mg Route: IVP; Site: left jugular; ll1 15:55 Follow up: Response: No adverse reaction ll1 15:55 Follow up: Response: No adverse reaction ll1 15:50 Drug: Dilaudid (HYDROmorphone) 0.5 mg Route: IVP; Site: left jugular; ll1 18:21 Follow up: Response: No adverse reaction; Pain is decreased; RASS: Alert and Calm (0) ll1 18:55 Drug: Dilaudid (HYDROmorphone) 0.5 mg Route: IVP; Site: left jugular; ll1 19:03 Follow up: Response: No adverse reaction ll1 Disposition Summary: 04/30/21 14:04 Transfer Ordered Transfer Location: [facility] vivienne Reason: Higher level of care vivienne Condition: Fair(04/30/21 14:04) vivienne Problem: new(04/30/21 14:04) vivienne Symptoms: have improved(04/30/21 14:04) vivienne Accepting Physician: [place] [facility]21 19:00) ll1 Diagnosis - Type 1 diabetes mellitus with hyperglycemia(04/30/21 14:04) vivienne - End stage renal disease - with HD M,W,F(04/30/21 14:04) vivienne - Infection following a procedure - LEFT TMA 02/26(04/30/21 14:04) vivienne - Personal history of diabetic foot ulcer(04/30/21 14:04) vivienne Forms: - Medication Reconciliation Form vivienne - SBAR form vivienne Signatures: Dispatcher [employer] EDJohann Cook MD MD cha Williams, Irene RN RN iw Lucius Campos RN RN ll1 Corrections: (The following items were deleted from the chart) 11:05 11:03 PMHx: Hypertension; iw iw 14:01 12:24 Inpatient Admission vivienne vivienne 14:01 12:24 Lemos, A vivienne vivienne 14:01 12:24 Telemetry/MedSurg (Inpatient) vivienne vivienne 14:01 12:24 Stable vivienne vivienne 14:01 12:24 new vivienne vivienne 14:01 12:24 have improved vivienne vivienne 14:01 12:24 Standard vivienne vivienne 14:01 12:24 vivienne vivienne 14:01 12:24 End stage renal disease - on HD M, W, F vivienne vivienne 14:01 12:24 Personal history of diabetic foot ulcer vivienne vivienne 14:01 12:24 Infection following a procedure - 02/26 TMA, WITH NECROSIS vivienne vivienne 14:01 12:24 Type 1 diabetes mellitus with hyperglycemia vivienne vivienne 19:00 14:04 to [facility] vivienne ll1
[2021-04-30 13:02] LABS: Absolute Lymphocytes (CBC) 0.6 K/uL (0.7-4.9); Basophils % 0.6 % (0-1.3); Hematocrit 32.8 % (39.6-49.0); MPV 6.8 fL (7.6-11.3); RBC Red Blood Cell Count 3.55 M/uL (4.33-5.43)
[2021-04-30 13:07] LABS: Protime INR 1.53
--- NOTE | 2021-04-30 13:10 | RAD REPORT ---
EXAM DESCRIPTION: RAD - Foot Left 3 View - 04/30/2021 1:02 pm CLINICAL HISTORY: PAIN COMPARISON: Foot Left 3 View dated 02/23/2021; Foot Left 2 View dated 11/21/2020; Chest Single View [facility] [place] 04/30/2021 FINDINGS: Status post partial forefoot amputation. The residual fifth metatarsal is not well visuali zed and may have been nearly completely resected. Vascular stent is present. Bandage material is pres ent around the foot. No definite acute fracture. IMPRESSION: Status post partial forefoot amputation with expected postoperative changes. Note that n o immediate postoperative imaging is available for comparison.
--- NOTE | 2021-04-30 13:11 | RAD REPORT ---
EXAM DESCRIPTION: RAD - Chest Single View - 04/30/2021 1:02 pm CLINICAL HISTORY: COUGH COMPARISON: Chest Single View dated 11/21/2020; Chest Single View dated 08/08/2020; Chest Pa And Lat ( 2 Views) dated 08/07/2020; Chest Single View dated 04/28/2016 FINDINGS: Lines: None. Lungs: No evidence of edema or pneumonia. Pleural: No significant pleural effusions or pneumothorax. Cardiac: Cardiomegaly. Bones: No acute fractures. Sternotomy. Other: IMPRESSION: No acute cardiopulmonary disease.
[2021-04-30 13:38] LABS: Albumin 1.5 g/dL (3.4-5.0); Bilirubin Direct 0.3 mg/dL (0-0.2); Bilirubin Total 0.6 mg/dL (0.2-1.0); Potassium 3.9 mmol/L (3.5-5.1); Protein, Total 6.5 g/dL (6.4-8.2); Troponin (Emerg Dept Use Only) 0.07 ng/mL (0.0-0.045)
[2021-04-30] MEDS ORDERED: HYDROMORPHONE HCL 0.5 MG/0.5 ML INJ ONE ×2 (15:45→18:54)
--- NOTE | 2021-04-30 18:21 | CON ---
Date of Consultation: 04/30/2021 Reason: Infected left foot wound. History Of Present Illness: The patient is a 56-year-old gentleman with multiple medical problems wh o comes in with infected wound on his left foot. The patient states that he had vascular surgery for bypass 4 months ago at [facility] and 2 months ago, he had a partial forefoot amputation. He had home health and he started having increased pain. He tried to get an appointment with the compensation manager and the vascular surgeon, he got 1 for next week but the pain became worse and the visiting nurses s aw his foot and told him to go to the emergency room. He is awake, alert, complaining of pain. Cabrera es any fever or chills. He is legally blind, so he cannot see his wounds, and no sore throat, runny nose, cough, headaches, or dizziness. No chest pain. No fever or chills. Review of Systems: Otherwise unremarkable. Past Medical History: Significant for diabetes, end-stage renal disease, high cholesterol. Past Surgical History: Left foot amputation, CABG, glaucoma, left leg vascular procedure, details un clear at this time. Allergies: INCLUDE ELIQUIS. Medications: The patient is on Plavix and aspirin. Social History: He does not smoke or drink alcohol. Family History: Noncontributory. Physical Examination: Vital Signs: Reviewed. They are stable. He is afebrile. General: He is awake and alert. Head and Neck: No masses. Chest: Clear. Heart: S1, S2. Abdomen: Soft. Extremities: Diminished dorsalis pedis and posterior tibial pulses. Looking at the legs, there is d efinitive arterial disease present. Though forefoot has about 80% granulation tissue but there is a necrotic eschar on the bottom lateral aspect of the forefoot, and there is a blister, which was unroo fed at the bedside with purulence underneath it. Cultures were done. Some necrotic tissue that was loose was debrided and there is redness and tenderness around the wound present. There is no obvious abscess present. Laboratory Data: Shows a white count of 9.10 with a left shift. Sed rate is 86. INR is 1.53. Chem istry reviewed, lactic acid is 0.8. Assessment: A 56-year-old gentleman with multiple medical problems with an infected wound on the lef t foot status post vascular procedure as well as partial amputation in [place] recently. Recommendation: Given that the patient has established care in [facility] with the Vascular Surger y, Podiatry, I would recommend transferring the patient back to [facility] so they can determine wh at the best next step for this patient is. It may be aggressive debridement versus BKA. We do not h ave that information here and he does not have complete vascular workup there, so I think for continu ity of care as well as the appropriate treatment for this patient, I think he should be transferred [facility] to [facility]. This was discussed with Dr. Lemos and Dr. Gary and arrangements are being ma de at this point for transfer. The patient will receive antibiotics and he may need further workup w ith arterial Doppler as well as MRI before determining what the next best step for this patient is. /MODL Voice ID: [id number] Report ID: [id number]
--- NOTE | 2021-04-30 18:33 | CON ---
Date of Consultation: 04/30/2021 Reason For Consultation: Elevated BUN and creatinine, hemodialysis management. History Of Present Illness: This is a pleasant, unfortunate 56-year-old gentleman with significant p ast medical history of diabetes complicated with neuropathy and nephropathy; hypertension; hyperlipid emia; CAD; insomnia; end-stage renal disease, on hemodialysis, Thursday, Thursday, Thursday, last dialys is yesterday; foot infection status post hospitalization with debridement back in February, recently d ischarged to rehab at [facility]. According to the patient, the patient is supposed to have wound VAC, but apparently was not provided there and still carrying weight, bearing weight on his foot. The pat ient came with the leg pain, found to have foot infection. The patient underwent I and D by Surgery. Past Medical History: Include: 1.Hypertension. 2.Hyperlipidemia. 3.End-stage renal disease, on hemodialysis Thursday, Thursday, Thursday. 4.Diabetes complicated with neuropathy and nephropathy. 5.CAD. 6.Depression. 7.Insomnia. Allergies: TO APIXABAN. Home Medications: Include: 1.Renvela. 2.Omeprazole. 3.Melatonin. 4.Insulin. 5.Codeine. 6.Aspirin. Past Surgical History: Include angioplasty, foot debridement, AV fistula creation. Family History: Positive for diabetes. Social History: [facility] in [facility]. Denied smoking. Denied drinking. Denied drug abuse. Review of Systems: Head and Neck: No red eye. No ear pain. GI: No nausea, no vomiting. : No polyuria, no dysuria, no hematuria. Energy Efficiency Finance Manager: Not applicable. Respiratory: No shortness of breath. Cardiovascular: Has leg swelling. Endocrine: No polydipsia. Skin: No rash. Neuro: Has neuropathy. Musculoskeletal: Has foot pain. Physical Examination: Vital Signs: When I saw the patient, blood pressure 136/63, pulse of 88, afebrile. Chest: Crackles bilateral base. Heart: S1, S2, systolic murmur. Abdomen: Soft, nontender. Extremity: Trace edema. Dressing on the left foot with MTA. Laboratory Data: H and H 10.5/32.8. Sodium 139, potassium 3.9, bicarb 27, BUN 16, creatinine 5.2, c alcium 8.4. Assessment And Plan: 1.End-stage renal disease. We will maintain the patient on dialysis Thursday, Thursday, Thursday. Due for dialysis tomorrow. 2.Hyponatremia, electrolyte imbalance, going to be corrected with dialysis tomorrow. 3.Acidosis, going to be corrected with dialysis tomorrow. 4.Hypertension, controlled, optimal. Continue current medication. 5.Foot infection, possible osteomyelitis status post debridement. Will follow up with Primary. The patient planned for transfer back to [facility] for workup. KISHORE Voice ID: [id number] Report ID: [id number]
[2021-04-30 19:12] VITALS: TEMP 98
[2021-04-30 19:15] VITALS: BP 131/61; O2SAT 100
== END 2021-04-30 19:00 | disposition short-term general hospital (02) | DRG 862 ==
LOC: ER 10:55 → ERHOLD 12:29
PROVIDERS: ADMIT Internal Medicine; ATTEND Internal Medicine
DX: T81.49XA Infection following a procedure, other surgical site, initial encounter (principal); N18.6 End stage renal disease; I12.0 Hypertensive chronic kidney disease with stage 5 chronic kidney disease or end stage renal disease; E87.1 Hypo-osmolality and hyponatremia; E87.2 Acidosis; E10.22 Type 1 diabetes mellitus with diabetic chronic kidney disease; E10.65 Type 1 diabetes mellitus with hyperglycemia; E78.5 Hyperlipidemia, unspecified; I25.10 Atherosclerotic heart disease of native coronary artery without angina pectoris; H54.8 Legal blindness, as defined in USA; Z88.8 Allergy status to other drugs, medicaments and biological substances; Z79.02 Long term (current) use of antithrombotics/antiplatelets; Z79.82 Long term (current) use of aspirin; Z79.899 Other long term (current) drug therapy; Z99.2 Dependence on renal dialysis; Z89.422 Acquired absence of other left toe(s); Z95.1 Presence of aortocoronary bypass graft; Z20.822 Contact with and (suspected) exposure to COVID-19; Z79.4 Long term (current) use of insulin
CPT/HCPCS: 36415; 71045; 80048; 80076; 83605; 83735; 83880; 84484; 85025; 85610; 85652; 86850; 86900; 86901; 87040; 87070; 87205; 96365; 96366; 96375; 99285; J1170; J2270; J2405; J2543; J3370; J7050; U0003

== ENCOUNTER 2021-11-17 16:58 | Emergency (ER) | payer OTHER ==
--- OUTSIDE RECORDS SUMMARY | 2021-11-17 17:16 | XMS REPORT | Continuity of Care Document ---
:1965 Author Organization [facility] t Address [address] [place] [address] Care Team Providers Name Role Phone Sarita LEMOS Primary Care Physician Unavailable [id number] Attending Clinician Unavailable HERIBERTO DOBBS Attending Clinician Unavailable CHELI DONNELLY Attending Clinician Unavailable JACQUES Attending Clinician Unavailable YUSUF HAIRSTON Attending Clinician Unavailable Mohit Cheek Attending Clinician Unavailable Jessica Attending Clinician Unavailable Saúl CARRILLO Attending Clinician REMIGIO PICKARD Attending Clinician Unavailable SAÚL Attending Clinician Unavailable ANABELLE Attending Clinician Unavailable Werner Looney DPM Attending Clinician LISA EGAN Attending Clinician Unavailable BHARATHI TRIVEDI Attending Clinician Unavailable WERNER LOONEY Attending Clinician Unavailable WERNER LOONEY Attending Clinician Unavailable ISAIAH ROWLEY Attending Clinician Unavailable STONEY YOU Attending Clinician Unavailable CHELI DONNELLY Attending Clinician Unavailable CHEVY PITT Attending Clinician Unavailable Cheli Donnelly MD Attending Clinician LISA EGAN Attending Clinician Unavailable Karlo LYON Attending Clinician Unavailable Quinn CARRILLO Attending Clinician Ruel GUARDADO Attending Clinician RADHA Attending Clinician Unavailable ERIC HARDING Attending Clinician Unavailable [id number] Admitting Clinician Unavailable HERIBERTO DOBBS Admitting Clinician Unavailable CHELI DONNELLY Admitting Clinician Unavailable JACQUES Admitting Clinician Unavailable YUSUF HAIRSTON Admitting Clinician Unavailable LUPE Admitting Clinician Unavailable Jessica Admitting Clinician Unavailable DOREEN MCPHERSON Admitting Clinician Unavailable STONEY YOU Admitting Clinician Unavailable RADHA Admitting Clinician Unavailable Payers Payer Name Policy Type Policy Number Effective Date Expiration Date Glenys YING [id number] MEDICARE A B [id number] 2009 2009 00:00:00 00:00:00 HU[employer] PPO SELECT [id number] 2020 2020 ASO 00:00:00 00:00:00 [employer] MEDICARE [id number] 2020 ADV 00:00:00 [employer] MEDICARE [id number] 2020 ADVANTAGE 00:00:00 [employer] (MEDICARE [id number] REPLACEMENT/ADVAN TAGE - PPO) MEDICARE PART A [id number] 2016 \\T\\ B - MEDICARE 00:00:00 Problems Condition Condition Condition Status Onset Resolution Last Treating Co mments Source Name Details Category Date Date Treatment Clinician Date Type 2 Type 2 Problem Active [place] diabetes Diabetes 11-12 Family mellitus Mellitus 00:00: Angelica edwards 00 e Hyperlipid Hyperlipid Problem Active [facility] emia emia 11-12 Family 00:00: Practic 00 e Neuropathy Neuropathy Problem Active [facility] due to Due to 11-12 Family diabetes Diabetes 00:00: Pracvalentino c mellitus Mellitus 00 e Peripheral Peripheral Problem Active [facility] vascular Vascular 11-12 Family disease Disease 00:00: Practic 00 e End stage End Stage Problem Active Guerda mitchell renal Renal 11-12 Family failure on Failure on 00:00: Pr actic dialysis Dialysis 00 e Amputated Amputated Problem Active Guerda mitchell toe Toe 11-12 Family 00:00: Practic 00 e 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 11-12 Family coronary Coronary 00:00: Practi c artery Artery 00 e without without angina Angina pectoris Pectoris S/P S/P Disease Active [facility] transmetat transmetat 311 Co llege arsal arsal 00:00: of amputation amputation 00 Me dicin of foot, of foot, e left left (HCCode) (HCCode) S/P split S/P split Disease Active [facility] thickness thickness 3 [place] skin graft skin graft 00:00: of 00 Medicin e Post-opera Post-opera Disease Active [facility] tive state tive state 08-02 Co llege 00:00: of 00 Medicin e Encounter Encounter Disease Active [facility] for post for post 08-02 Colleg e surgical surgical 00:00: of wound wound 00 Medicin check check e Type 2 Type 2 Disease Active [facility] diabetes diabetes 08-02 Colleg e mellitus mellitus 00:00: of with with 00 Medicin diabetic diabetic e peripheral peripheral angiopathy angiopathy without without gangrene, gangrene, with with long-term long-term current current use of use of insulin [facility] ([facility] PAD PAD Disease Active [facility] (periphera (periphera 7-30 Co llege l artery l artery 00:00: of disease) disease) 00 Medici n (HCCode) (HCCode) e Hx of CABG Hx of CABG Disease Active [facility] 8-02 College 00:00: of 00 Medicin e CAD CAD Disease Active [facility] (coronary (coronary 4-30 [place] artery artery 00:00: of disease) disease) 00 Medici n e ESRD (end ESRD (end Disease Active Overview: [facility] stage stage 6-22 [facility] renal renal 00:00: g of this of disease) disease) 00 note Medici n on on might be e dialysis dialysis different [facility] ([facility]) from the original. Secondary to HTN and DMOn HD since 09/18/10 on M, W, F via STEPH Zhang oing renal transplan t evaluatio n HTN HTN Disease Active [facility] (hypertens (hypertens 6-22 Co llege ion) ion) 00:00: of 00 Medicin e DM DM Disease Active [facility] (diabetes (diabetes 6-22 [place] mellitus) mellitus) 00:00: of 00 Medicin e Allergies, Adverse Reactions, Alerts Allergy Allergy Status Severity Reaction(s) Onset Inactive Treating Comm ents Source Name Type Date Date Clinician APIXABAN Allergy Active [facility] 00[facility] No Known DA Active [facility] [...] Active Other [place] to 07-31 reaction( Health substanc 00:00: s): e 00 Itching/H jailene/Rash Apixaban Propensi Active "I break [facility] ty to 07-31 out in College adverse 00:00: scabs"Oth of reaction 00 er Medicin s to reaction( e drug s): Itching/H jailene/Rash NO KNOWN Allergy Active [facility] Eliquis Allergy Active [place] to Family substanc Practic e e Social History Social Habit Start Date Stop Date Quantity Comments Source Exposure to Not sure [facility] SARS-CoV-2 (event) Alcohol intake 2021-10-17 2021-10-17 Current [facility] Col lege 00:00:00 00:00:00 non-drinker of of Medicin e alcohol (finding) Tobacco use and 2021-10-16 2021-10-16 Smokeless tobacco [facility] exposure 00:00:00 00:00:00 non-user of Medicine Cigarette 2021-10-16 2021-10-16 [facility] pack-years 00:00:00 00:00:00 of Medicine Sex Ass[birth year] At [birth year] [facility] 00:00:00 00:00:00 Smoking Status Start Date Stop Date Source Unknown if ever smoked [facility] Never smoked tobacco [facility] [place] of Medicine Medications Ordered Filled Start Stop Current Ordering Indication Dosage Frequency Signature Comments Components Source Medication Medication Date Date Medication? Clinician (SIG) Name Name Calcium Yes [id number] Take 5 [facility] Acetate, 5-25 capsules [facility] 13:17: by mouth. of Ramez Alvarez 04 Medicin MG CAPS e INSULIN ASP Yes [id number] Inject [facility] PROT & ASP, 5-25 into the [place] HUM, 13:17: skin. of (70-30) 100 04 Medicin UNIT/ML e SUSP Melatonin 3 Yes [id number] 1mg Take 1 mg [facility] MG TABS 5-25 by mouth. [facility] 13:17: of 04 Medicin e midodrine Yes [id number] 15mg Take 15 mg [facility] 10 MG TABS 5-25 by mouth Colle ge 13:17: daily. of 04 Prior to Medicin dialysis e omeprazole Yes [id number] 20mg Take 20 mg [facility] (PRILOSEC) 5-25 by mouth. [place] 20 MG 13:17: of capsule 04 Medicin e Aspirin 81 Yes 81mg Take 81 mg [facility] MG tablet 5-25 by mouth. Colle ge 13:17: of 04 Medicin e Sevelamer Yes 1600mg Take 1,600 [facility]t Carbonate 5-25 mg by [facility] 800 MG TABS 13:17: mouth. of 04 Medicin e amoxicillin Yes TAKE 1 [facility] -clavulanat 5-12 TABLET BY Col lege e 00:00: MOUTH of (AUGMENTIN) 00 EVERY DAY Med icin 500-125 MG FOR 5 DAYS e per tablet Calcium Yes [id number] Take 5 [facility] [facility] Acetate, 4-18 capsules [facility] 13:03: by mouth. of Ramez Alvarez 03 Medicin MG CAPS e INSULIN ASP Yes [id number] Inject [facility] PROT & ASP, 4-18 into the [place] HUM, 13:03: skin. of (70-30) 100 03 Medicin UNIT/ML e SUSP Melatonin 3 0 Yes [id number] 1mg Take 1 mg [facility]t MG TABS 4-18 by mouth. [facility] 13:03: of 03 Medicin e midodrine Yes [id number] 15mg Take 15 mg [facility] 10 MG TABS 4-18 by mouth Colle ge 13:03: daily. of 03 Prior to Medicin dialysis e omeprazole 2022-0 Yes [id number] 20mg Take 20 mg [facility] (PRILOSEC) 4-18 by mouth. [place] 20 MG 13:03: of capsule 03 Medicin e Aspirin 81 2021-0 Yes 81mg Take 81 mg [facility] MG tablet 4-18 by mouth. Colle ge 13:03: of 03 Medicin e Sevelamer 2-0 Yes 1600mg Take 1,600 [facility]t Carbonate 4-18 mg by [facility] 800 MG TABS 13:03: mouth. of 03 Medicin e Calcium 2021-0 Yes [id number] Take 5 [place] [facility] Acetate, 4-18 capsules [facility] 13:03: by mouth. of [place] 667 03 Medicin MG CAPS e INSULIN ASP 2021-0 Yes [id number] Inject [facility] PROT & ASP, 4-18 into the [place] HUM, 13:03: skin. of (70-30) 100 03 Medicin UNIT/ML e SUSP Melatonin 3 2021-0 Yes [id number] 1mg Take 1 mg [facility]t MG TABS 4-18 by mouth. [facility] 13:03: of 03 Medicin e midodrine 2021-0 Yes [id number] 15mg Take 15 mg [facility] 10 MG TABS 4-18 by mouth Colle ge 13:03: daily. of 03 Prior to Medicin dialysis e omeprazole 2021-0 Yes [id number] 20mg Take 20 mg [facility] (PRILOSEC) 4-18 by mouth. [place] 20 MG 13:03: of capsule 03 Medicin e Aspirin 81 2021-0 Yes 81mg Take 81 mg [facility] MG tablet 4-18 by mouth. Colle ge 13:03: of 03 Medicin e Sevelamer 2021-0 Yes 1600mg Take 1,600 [facility] Carbonate 4-18 mg by [place] 800 MG TABS 13:03: mouth. of 03 Medicin e Calcium 2-0 Yes [id number] Take 5 [place] [facility] Acetate, 4-13 capsules [facility] 09:34: by mouth. of [place], 667 10 Medicin MG CAPS e INSULIN ASP 2021-0 Yes [id number] Inject [facility] PROT & ASP, 4-13 into the [place] HUM, 09:34: skin. of (70-30) 100 10 Medicin UNIT/ML e SUSP Melatonin 3 Yes [id number] 1mg Take 1 mg [facility] MG TABS 4-13 by mouth. College 09:34: of 10 Medicin e midodrine Yes [id number] 15mg Take 15 mg [facility] 10 MG TABS 4-13 by mouth Colle ge 09:34: daily. of 10 Prior to Medicin dialysis e omeprazole Yes [id number] 20mg Take 20 mg [facility] (PRILOSEC) 4-13 by mouth. [place] 20 MG 09:34: of capsule 10 Medicin e Aspirin 81 Yes 81mg Take 81 mg [facility] MG tablet 4-13 by mouth. Colle ge 09:34: of 10 Medicin e Sevelamer Yes 1600mg Take 1,600 [facility] Carbonate 4-13 mg by College 800 MG TABS 09:34: mouth. of 10 Medicin e acetaminoph Yes [id number] 1{tbl} Take 1 [facility] en-codeine 3-24 [id number] Tablet by Co llege (TYLENOL 00:00: mouth of #4) 300-60 00 every 6 Medici n MG per hours as e tablet needed for Pain. acetaminoph Yes [id number] 1{tbl} Take 1 [facility] en-codeine 3-24 [id number] Tablet by Co llege (TYLENOL 00:00: mouth of #4) 300-60 00 every 6 Medici n MG per hours as e tablet needed for Pain. acetaminoph Yes [id number] 1{tbl} Take 1 [facility] en-codeine 3-24 [id number] Tablet by Co llege (TYLENOL 00:00: mouth of #4) 300-60 00 every 6 Medici n MG per hours as e tablet needed for Pain. acetaminoph 2021-0 Yes [id number] 1{tbl} Take 1 [facility] en-codeine 3-24 [id number] Tablet by Co llege (TYLENOL 00:00: mouth of #4) 300-60 00 every 6 Medici n MG per hours as e tablet needed for Pain. Calcium Yes [id number] Take 5 [place] [facility] Acetate, 3-14 capsules [facility] 13:17: by mouth. of [place], 667 56 Medicin MG CAPS e INSULIN ASP 2021-0 Yes [id number] Inject [facility] PROT & ASP, 3-14 into the [place] HUM, 13:17: skin. of (70-30) 100 56 Medicin UNIT/ML e SUSP Melatonin 3 0 Yes [id number] 1mg Take 1 mg [facility] MG TABS 3-14 by mouth. [facility] 13:17: of 56 Medicin e midodrine 0 Yes [id number] 15mg Take 15 mg [facility] 10 MG TABS -14 by mouth Colle ge 13:17: daily. of 56 Prior to Medicin dialysis e omeprazole 0 Yes [id number] 20mg Take 20 mg [facility] (PRILOSEC) 3-14 by mouth. [place] 20 MG 13:17: of capsule 56 Medicin e Aspirin 81 0 Yes 81mg Take 81 mg [facility] MG tablet 3-14 by mouth. Colle ge 13:17: of 56 Medicin e Sevelamer Yes 1600mg Take 1,600 [facility] Carbonate 3-14 mg by [facility] 800 MG TABS 13:17: mouth. of 56 Medicin e acetaminoph 2021-0 202- No [id number] 1{tbl} Take 1 [facility] en-codeine 3-14 -15 [id number] Tablet by Sarita patrick (TYLENOL 00:00: 00:00 mouth of #4) 300-60 00 :00 every 6 Medici n MG per hours as e tablet needed for Pain. omeprazole 0 Yes [id number] 20mg Take 20 mg [facility] (PRILOSEC) 3-03 by mouth. [place] 20 MG 15:01: of capsule 15 Medicin e Calcium 0 Yes [id number] Take 5 [facility] [facility] Acetate, 3-03 capsules [facility] 14:57: by mouth. of [place], 667 43 Medicin MG CAPS e INSULIN ASP 0 Yes [id number] Inject [facility] PROT & ASP, 3-03 into the [place] HUM, 14:57: skin. of (70-30) 100 43 Medicin UNIT/ML e SUSP Melatonin 3 0 Yes [id number] 1mg Take 1 mg [facility] MG TABS 3-03 by mouth. [place] 14:57: of 43 Medicin e midodrine Yes [id number] 15mg Take 15 mg [facility] 10 MG TABS 3-03 by mouth Colle ge 14:57: daily. of 43 Prior to Medicin dialysis e Aspirin 81 Yes 81mg Take 81 mg [facility] MG tablet 3-03 by mouth. Colle ge 14:57: of 43 Medicin e Sevelamer Yes 1600mg Take 1,600 [facility] Carbonate 3-03 mg by [place] 800 MG TABS 14:57: mouth. of 43 Medicin e amoxicillin 2021- No [id number] 1{tbl} Take 1 [facility] -clavulanat 3-03 03-14 Tablet by Co llege e 00:00: 04:59 mouth two of (AUGMENTIN) 00 :00 times Medicin 500-125 MG daily for e per tablet 10 days. acetaminoph Yes 1{tbl} Take 1 [facility] en-codeine 1-12 Tablet by [place] (TYLENOL 00:00: mouth of #4) 300-60 00 every 4 Medici n MG per hours as e tablet needed for Pain. acetaminoph Yes 1{tbl} Take 1 [facility] en-codeine 1-12 Tablet by [place] (TYLENOL 00:00: mouth of #4) 300-60 00 every 4 Medici n MG per hours as e tablet needed for Pain. acetaminoph 2021- No 1{tbl} Take 1 [facility] en-codeine 1-12 03-14 Tablet by [facility] (TYLENOL 00:00: 00:00 mouth of #4) 300-60 00 :00 every 4 Medici n MG per hours as e tablet needed for Pain. Calcium Yes [id number] Take 5 [facility] Acetate, 1-10 capsules [facility] 15:11: by mouth. of [place], 667 18 Medicin MG CAPS e INSULIN ASP Yes [id number] Inject [facility] PROT & ASP, 1-10 into the [place] HUM, 15:11: skin. of (70-30) 100 18 Medicin UNIT/ML e SUSP Melatonin 3 Yes [id number] 1mg Take 1 mg [facility] MG TABS 1-10 by mouth. College 15:11: of 18 Medicin e midodrine Yes [id number] 15mg Take 15 mg [facility] 10 MG TABS 1-10 by mouth Colle ge 15:11: daily. of 18 Prior to Medicin dialysis e omeprazole Yes [id number] 20mg Take 20 mg [facility] (PRILOSEC) 1-10 by mouth. [place] 20 MG 15:11: of capsule 18 Medicin e Aspirin 81 Yes 81mg Take 81 mg [facility] MG tablet 1-10 by mouth. Colle ge 15:11: of 18 Medicin e Sevelamer Yes 1600mg Take 1,600 [facility] Carbonate 1-10 mg by College 800 MG TABS 15:11: mouth. of 18 Medicin e metronidazo Yes [facility] le (FLAGYL) 1-05 College 500 MG 00:00: of tablet 00 Medicin e metronidazo Yes [facility] le (FLAGYL) 1-05 [facility] 500 MG 00:00: of tablet 00 Medicin e metronidazo 0 Yes [facility] le (FLAGYL) 1-05 [facility] 500 MG 00:00: of tablet 00 Medicin e metronidazo 0 Yes [facility] le (FLAGYL) 1-05 [place] 500 MG 00:00: of tablet 00 Medicin e metronidazo 0 Yes [facility] le (FLAGYL) 1-05 [place] 500 MG 00:00: of tablet 00 Medicin e metronidazo 0 Yes [facility] le (FLAGYL) 1-05 [place] 500 MG 00:00: of tablet 00 Medicin e metronidazo 0 Yes [facility] le (FLAGYL) 1-05 [facility] 500 MG 00:00: of tablet 00 Medicin e ciprofloxac 2020-05- No 500mg Take 500 [facility] in (CIPRO) 2-16 01-21 mg by [place] 500 MG 00:00: 05:59 mouth. of tablet 00 :00 Medicin e gabapentin 2020-05- No 300mg Take 300 [facility] (NEURONTIN) 2-16 01-16 mg by Colleg e 300 MG 00:00: 05:59 mouth. of capsule 00 :00 Medicin e LANTUS 2020-[address] 100 UNIT/ML 00:00: of SOPN 00 Medicin e LANTUS 2020-[address] 100 UNIT/ML 00:00: of SOPN 00 Medicin e LANTUS 2020-[address] 100 UNIT/ML 00:00: of SOPN 00 Medicin e LANTUS 2020-[address] 100 UNIT/ML 00:00: of SOPN 00 Medicin e LANTUS 2020-[address] 100 UNIT/ML 00:00: of SOPN 00 Medicin e LANTUS 2020-[address] 100 UNIT/ML 00:00: of SOPN 00 Medicin e LANTUS 2020-[address] 100 UNIT/ML 00:00: of SOPN 00 Medicin e insulin 2020-05- No 6U Inject 6 [facility] 0-28 10-29 Units into Colle ge (LEVEMIR) 00:00: 04:59 the skin. of 100 UNIT/ML 00 :00 Medicin injection e insulin 2020-05- No 6U Inject 6 [facility] 0-28 10-29 Units into Colle ge (LEVEMIR) 00:00: 04:59 the skin. of 100 UNIT/ML 00 :00 Medicin injection e insulin 2020-05- No 6U Inject 6 [facility] 0-28 10-29 Units into Colle ge (LEVEMIR) 00:00: 04:59 the skin. of 100 UNIT/ML 00 :00 Medicin injection e insulin 2020-05- No 6U Inject 6 [facility] 0-28 10-29 Units into Colle ge (LEVEMIR) 00:00: 04:59 the skin. of 100 UNIT/ML 00 :00 Medicin injection e insulin 2020-05- No 6U Inject 6 [facility] 0-28 10-29 Units into Colle ge (LEVEMIR) 00:00: 04:59 the skin. of 100 UNIT/ML 00 :00 Medicin injection e insulin 2020-05- No 6U Inject 6 [facility] 0-28 10-29 Units into Colle ge (LEVEMIR) 00:00: 04:59 the skin. of 100 UNIT/ML 00 :00 Medicin injection e insulin 2020-05- No 6U Inject 6 [facility] 0-28 10-29 Units into Colle ge (LEVEMIR) 00:00: 04:59 the skin. of 100 UNIT/ML 00 :00 Medicin injection e clopidogrel Yes TAKE 1 [facility] (PLAVIX) 75 9-20 TABLET BY Col [facility]ge MG Tablet 00:00: MOUTH of 00 EVERY DAY Medicin e clopidogrel Yes TAKE 1 [facility] (PLAVIX) 75 9-20 TABLET BY Col [facility]ge MG Tablet 00:00: MOUTH of 00 EVERY DAY Medicin e clopidogrel Yes TAKE 1 [facility] (PLAVIX) 75 9-20 TABLET BY Col [facility] MG Tablet 00:00: MOUTH of 00 EVERY DAY Medicin e clopidogrel Yes TAKE 1 [facility] (PLAVIX) 75 9-20 TABLET BY Col [facility]ge MG Tablet 00:00: MOUTH of 00 EVERY DAY Medicin e clopidogrel Yes TAKE 1 [facility] (PLAVIX) 75 9-20 TABLET BY Col [facility] MG Tablet 00:00: MOUTH of 00 EVERY DAY Medicin e clopidogrel Yes TAKE 1 [facility] (PLAVIX) 75 9-20 TABLET BY Col [facility]ge MG Tablet 00:00: MOUTH of 00 EVERY DAY Medicin e clopidogrel Yes TAKE 1 [facility] (PLAVIX) 75 9-20 TABLET BY Col [facility]ge MG Tablet 00:00: MOUTH of 00 EVERY DAY Medicin e Calcium Yes [id number] Take 5 [place] [facility] Acetate, 01-24 capsules [facility] 15:42: by mouth. of [place], 667 31 Medicin MG CAPS e INSULIN ASP Yes [id number] Inject [facility] PROT & ASP, 01-24 into the [place] HUM, 15:42: skin. of (70-30) 100 31 Medicin UNIT/ML e SUSP Melatonin 3 Yes [id number] 1mg Take 1 mg [facility]t MG TABS 01-24 by mouth. College 15:42: of 31 Medicin e midodrine Yes [id number] 15mg Take 15 mg [facility] 10 MG TABS 01-24 by mouth Colle ge 15:42: daily. of 31 Prior to Medicin dialysis e omeprazole Yes [id number] 20mg Take 20 mg [facility]t (PRILOSEC) 01-24 by mouth. [place] 20 MG 15:42: of capsule 31 Medicin e Aspirin 81 Yes 81mg Take 81 mg [facility] MG tablet 01-24 by mouth. Colle ge 15:42: of 31 Medicin e Calcium Yes [id number] Take 5 [place] [facility] Acetate, 01-24 capsules [facility] 15:42: by mouth. of [place], 667 31 Medicin MG CAPS e INSULIN ASP Yes [id number] Inject [facility]t PROT & ASP, 01-24 into the [place] HUM, 15:42: skin. of (70-30) 100 31 Medicin UNIT/ML e SUSP Melatonin 3 Yes [id number] 1mg Take 1 mg [facility] MG TABS 01-24 by mouth. College 15:42: of 31 Medicin e midodrine Yes [id number] 15mg Take 15 mg [facility] 10 MG TABS 01-24 by mouth Colle ge 15:42: daily. of 31 Prior to Medicin dialysis e omeprazole Yes [id number] 20mg Take 20 mg [facility] (PRILOSEC) 01-24 by mouth. [place] 20 [...] Yes 1{tbl} Take 1 [facility] -clavulanat 9- Tablet by Col [facility]ge e 00:00: mouth two of (AUGMENTIN) 00 times Medicin 500-125 MG daily. e per tablet amoxicillin 2021- No 1{tbl} Take 1 [facility] -clavulanat 9-02 03-03 Tablet by Co llege e 00:00: 00:00 mouth two of (AUGMENTIN) 00 :00 times Medicin 500-125 MG daily. e per tablet hydrocodone Yes 1{tbl} Take 1 [facility] -acetaminop 8-30 Tablet by Col lege hen (mana.bo) 00:00: mouth of 5-325 mg 00 every 6 Medicin tablet hours as e needed for Pain for up to 20 doses. hydrocodone Yes 1{tbl} Take 1 [facility] -acetaminop 8-30 Tablet by Col [facility]ge hen (mana.bo) 00:00: mouth of 5-325 mg 00 every 6 Medicin tablet hours as e needed for Pain for up to 20 doses. hydrocodone 2021- No 1{tbl} Take 1 [facility] -acetaminop 8-30 -12 Tablet by Co llege hen (mana.bo) 00:00: 00:00 mouth of 5-325 mg 00 :00 every 6 Medicin tablet hours as e needed for Pain for up to 20 doses. gabapentin 2020- No 600mg Take 1 [facility] (NEURONTIN) 8-30 09-30 Tablet by Co llege 600 MG 00:00: 04:59 mouth 3 of tablet 00 :00 times Medicin daily for e 30 days. gabapentin 2020- No 600mg Take 1 [facility] (NEURONTIN) 8-30 09-30 Tablet by Co llege 600 MG 00:00: 04:59 mouth 3 of tablet 00 :00 times Medicin daily for e 30 days. clopidogrel 2019- Yes TAKE 1 [facility] (PLAVIX) 75 8-26 TABLET BY Col [facility] MG Tablet 00:00: MOUTH of 00 EVERY DAY Medicin e clopidogrel 2020-0 Yes TAKE 1 [facility] (PLAVIX) 75 8-26 TABLET BY Col [facility] MG Tablet 00:00: MOUTH of 00 EVERY DAY Medicin e clopidogrel 2020-0 Yes TAKE 1 [facility] (PLAVIX) 75 8-26 TABLET BY Col [facility] MG Tablet 00:00: MOUTH of 00 EVERY DAY Medicin e ELIQUIS 5 2020-0 Yes TAKE 1 [facility] MG TABS 4-29 TABLET BY [facility] 00:00: MOUTH of 00 TWICE A Medicin DAY e Calcium 2020-0 Yes [id number] 5{capsu Take 5 [facility] Acetate, 3-05 le} capsules [facility] 19:10: by mouth. of [place] [facility] 17 Medicin MG CAPS e gabapentin 2020-0 Yes [id number] 300mg Take 300 [facility] (NEURONTIN) 3-05 mg by [place] 300 MG 19:10: mouth 3 of capsule 17 times Medicin daily. e INSULIN ASP 2020-0 Yes [id number] Inject [facility] PROT & ASP, 3-05 into the [place] HUM, 19:10: skin. of (70-30) 100 17 Medicin UNIT/ML e SUSP Melatonin 3 2020-0 Yes [id number] 1mg Take 1 mg [facility] MG TABS 3-05 by mouth. [facility] 19:10: of 17 Medicin e midodrine 2020-0 Yes [id number] 15mg Take 15 mg [facility] 10 MG TABS 3-05 by mouth Colle ge 19:10: daily. of 17 Prior to Medicin dialysis e omeprazole 2020-0 Yes [id number] 20mg Take 20 mg [facility] (PRILOSEC) 3-05 by mouth. [place] 20 MG 19:10: of capsule 17 Medicin e Sevelamer 2020-0 Yes [id number] 4000mg Take 4,000 [facility] Carbonate 3-05 mg by [place] 800 MG TABS 19:10: mouth. of 17 Medicin e amitriptyli 2020-0 Yes 50mg Take 50 mg [facility]t ne (ELAVIL) 3-05 by mouth [place] 25 MG 19:10: nightly. of tablet 17 Medicin e Calcium 2020-0 Yes [id number] Take 5 [facility] Acetate, 3-05 capsules [facility]os 13:10: by mouth. of [place] [facility] 17 Medicin MG CAPS e gabapentin 2020-0 Yes [id number] 300mg Take 300 [facility] (NEURONTIN) 3-05 mg by [facility] 300 MG 13:10: mouth 3 of capsule 17 times Medicin daily. e INSULIN ASP 2020-0 Yes [id number] Inject [facility] PROT & ASP, 3-05 into the [place] HUM, 13:10: skin. of (70-30) 100 17 Medicin UNIT/ML e SUSP Melatonin 3 2019-0 Yes [id number] 1mg Take 1 mg [facility]t MG TABS 3-05 by mouth. College 13:10: of 17 Medicin e midodrine 2019-0 Yes [id number] 15mg Take 15 mg [facility] 10 MG TABS 3-05 by mouth Colle ge 13:10: daily. of 17 Prior to Medicin dialysis e omeprazole 2019-0 Yes [id number] 20mg Take 20 mg [facility] (PRILOSEC) 3-05 by mouth. Ari ege 20 MG 13:10: of capsule 17 Medicin e Sevelamer 2019-0 Yes [id number] 4000mg Take 4,000 Chet Carbonate 3-05 mg by Walsh 800 MG TABS 13:10: mouth. of 17 Medicin e amitriptyli 0 Yes 50mg Take 50 mg [facility] ne (ELAVIL) 3-05 by mouth [facility] 25 MG 13:10: nightly. of tablet 17 Medicin e Apixaban 2018-05 Yes .5{tbl} Take 0.5 [facility] (ELIQUIS) 5 2-30 tablets by Dc llege MG TABS 00:00: mouth two of 00 times Medicin daily. e clopidogrel 2018-05 Yes 75mg Take 1 Tab [facility]t (PLAVIX) 75 1-18 by mouth Ari e[place] MG Tablet 00:00: daily. of 00 Medicin e Calcium 2018-0 Yes [id number] 5{capsu Take 5 Chet Acetate, 7-23 le} capsules Walsh Phos 18:26: by mouth. of Binder, 667 56 Medicin MG CAPS e Sevelamer 2019-0 Yes [id number] 4000mg Take 4,000 Chet Carbonate 7-23 mg by [facility] 800 MG TABS 18:26: mouth. of 56 Medicin e gabapentin 2019-0 Yes [id number] 300mg Take 300 [facility] (NEURONTIN) 7-23 mg by Walsh 300 MG 18:12: mouth 3 of capsule 11 times Medicin daily. e INSULIN ASP 2019-0 Yes [id number] Inject [facility] PROT & ASP, 7- into the [facility] e[facility] HUM, 18:12: skin. of (70-30) 100 11 Medicin UNIT/ML e SUSP Melatonin 3 Yes [id number] 1mg Take 1 mg Chet MG TABS 7-23 by mouth. College 18:12: of 11 Medicin e midodrine Yes [id number] 15mg Take 15 mg [facility] 10 MG TABS 7-23 by mouth Colle ge 18:12: daily. of 11 Prior to Medicin dialysis e omeprazole Yes [id number] 20mg Take 20 mg [facility] (PRILOSEC) 7-23 by mouth. [facility] e[facility] 20 MG 18:12: of capsule 11 Medicin e amitriptyli Yes 50mg Take 50 mg [facility] ne (ELAVIL) 7-23 by mouth [facility] e[facility] 25 MG 18:12: nightly. of tablet 11 Medicin e BRILINTA 90 Yes TAKE 1 Bayl or MG TABS 2-25 TABLET BY Walsh 00:00: MOUTH of 00 TWICE A Medicin DAY e atorvastati Yes 40mg Take 1 Tab [facility] n (LIPITOR) 8-23 by mouth Ari e[facility] 40 MG 00:00: daily. of tablet 00 Medicin e carvedilol Yes 3.125mg Take 1 Tab [facility] (COREG) 8-23 by mouth College 3.125 MG 00:00: two times of tablet 00 daily. Medicin e atorvastati Yes 40mg Take 1 Tab [facility] n (LIPITOR) 8-23 by mouth Ari e[facility] 40 MG 00:00: daily. of tablet 00 Medicin e atorvastati Yes 40mg Take 1 Tab [facility]t n (LIPITOR) 8-23 by mouth [facility] e[facility] 40 MG 00:00: daily. of tablet 00 Medicin e atorvastati Yes 40mg Take 1 Tab [facility]t n (LIPITOR) 8-23 by mouth [facility] 40 MG 00:00: daily. of tablet 00 Medicin e atorvastati Yes 40mg Take 1 Tab [facility] n (LIPITOR) 8-23 by mouth [facility] 40 MG 00:00: daily. of tablet 00 Medicin e atorvastati Yes 40mg Take 1 Tab [facility] n (LIPITOR) 8-23 by mouth [facility] e[facility] 40 MG 00:00: daily. of tablet 00 Medicin e atorvastati Yes 40mg Take 1 Tab [facility] n (LIPITOR) 8-23 by mouth [facility] 40 MG 00:00: daily. of tablet 00 Medicin e atorvastati Yes 40mg Take 1 Tab [facility] n (LIPITOR) 8-23 by mouth [facility] 40 MG 00:00: daily. of tablet 00 Medicin e atorvastati Yes 40mg Take 1 Tab [facility] n (LIPITOR) 8-23 by mouth [place] [facility] 40 MG 00:00: daily. of tablet 00 Medicin e atorvastati Yes 40mg Take 1 Tab [facility]t n (LIPITOR) 8-23 by mouth [place] [facility] 40 MG 00:00: daily. of tablet 00 Medicin e aspirin EC Yes 81mg Take 1 Tab B aylor 81 MG TBEC 8-23 by mouth Colle ge 00:00: daily. of 00 Medicin e atorvastati Yes 40mg Take 1 Tab [facility] n (LIPITOR) 8-23 by mouth Ari e[facility] 40 MG 00:00: daily. of tablet 00 Medicin e carvedilol Yes 3.125mg Take 1 Tab [facility] (COREG) 8-23 by mouth College 3.125 MG 00:00: two times of tablet 00 daily. Medicin e atorvastati Yes 40mg Take 1 Tab [facility]t n (LIPITOR) 8-23 by mouth [facility] 40 MG 00:00: daily. of tablet 00 Medicin e carvedilol Yes 3.125mg Take 1 Tab [facility] (COREG) 8-23 by mouth College 3.125 MG 00:00: two times of tablet 00 daily. Medicin e No known No [facility] No known [facility] acetaminoph acetaminoph No acetaminop [place] en 300 en 300 hen 300 Family mg-codeine mg-codeine mg-codeine Practic 30 mg 30 mg 30 mg e tablet TAKE tablet TAKE tablet 1 TABLET BY 1 TABLET BY TAKE 1 MOUTH EVERY MOUTH EVERY TABLET BY 6 HOURS 6 HOURS MOUTH NEEDED FOR NEEDED FOR EVERY 6 PAIN PAIN HOURS NEEDED FOR PAIN atorvastavalentino cervantestavalentino No atorvastat [place] n 40 mg n 40 mg in 40 mg Famil y tablet TAKE tablet TAKE tablet Practic 1 TABLET BY 1 TABLET BY TAKE 1 e MOUTH EVERY MOUTH EVERY TABLET BY DAY DAY MOUTH EVERY DAY BD Iwona 2nd BD Iwona 2nd No BD Iwona [place] Gen Pen Gen Pen 2nd Gen Family Needle 32 Needle 32 Pen Needle Practic gauge x gauge x 32 gauge x e " USE " USE " USE DIRECTED. DIRECTED. DIRECTED. DISPENSE DISPENSE DISPENSE WRITTEN, DO WRITTEN, DO NOT NOT WRITTEN, SUBSTITUTE. SUBSTITUTE. DO NOT TO USE 5 A TO USE 5 A SUBSTITUTE DAY DX DAY DX . TO USE 5 . E11. A DAY DX . ciprofloxac ciprofloxac No ciprofloxa [facility] in 500 mg in 500 mg papa 500 mg Family tablet TAKE tablet TAKE tablet Practic 1 TABLET BY 1 TABLET BY TAKE 1 e MOUTH DAILY MOUTH DAILY TABLET BY FOR 35 FOR 35 MOUTH DAYS. DAYS. DAILY FOR 35 DAYS. clopidogrel clopidogrel No clopidogre [facility] 75 mg 75 mg l 75 mg Family tablet TAKE tablet TAKE tablet Practic 1 TABLET BY 1 TABLET BY TAKE 1 e MOUTH EVERY MOUTH EVERY TABLET BY DAY DAY MOUTH EVERY DAY cyclobenzap cyclobenzap No cyclobenza [facility] rine 5 mg rine 5 mg maryam 5 mg Family tablet TAKE tablet TAKE tablet Practic 1 TABLET BY 1 TABLET BY TAKE 1 e MOUTH 3 MOUTH 3 TABLET BY TIMES DAILY TIMES DAILY MOUTH 3 NEEDED NEEDED TIMES FOR MUSCLE FOR MUSCLE DAILY SPASMS FOR SPASMS FOR NEEDED FOR UP TO 10 UP TO 10 MUSCLE DAYS. DAYS. SPASMS FOR UP TO 10 DAYS. fludrocorti fludrocorti No fludrocort [facility] sone 0.1 mg sone 0.1 mg isone 0.1 Family tablet TAKE tablet TAKE mg tablet Practic 1 TABLET BY 1 TABLET BY TAKE 1 e MOUTH TWICE MOUTH TWICE TABLET BY A DAY A DAY MOUTH TWICE A DAY gabapentin gabapentin No gabapentin [facility] 300 mg 300 mg 300 mg Family capsule capsule capsule Practi c TAKE 1 TAKE 1 TAKE 1 e CAPSULE CAPSULE CAPSULE (300 MG (300 MG (300 MG TOTAL) BY TOTAL) BY TOTAL) BY MOUTH 2 MOUTH 2 MOUTH 2 (TWO) TIMES (TWO) TIMES (TWO) DAILY FOR DAILY FOR TIMES 30 DAYS. 30 DAYS. DAILY FOR 30 DAYS. Lantus Lantus No Lantus [facility] Solostar Solostar Solostar Fam basil U-100 U-100 U-100 Practic Insulin 100 Insulin 100 Insulin e unit/mL (3 unit/mL (3 100 mL) mL) unit/mL (3 subcutaneou subcutaneou mL) s pen TO s pen TO subcutaneo USE 15 USE 15 us pen TO UNITS TWICE UNITS TWICE USE 15 A DAY DX A DAY DX UNITS E11.65. E11.65. TWICE A DAY DX E11.65. midodrine 5 midodrine 5 No midodrine [place] mg tablet mg tablet 5 mg Famil y TAKE 3 TAKE 3 tablet Practic TABLETS BY TABLETS BY TAKE 3 e MOUTH TWICE MOUTH TWICE TABLETS BY A DAY A DAY MOUTH TWICE A DAY minocycline minocycline No minocyclin [place] 100 mg 100 mg e 100 mg Family capsule capsule capsule Practi c TAKE 1 TAKE 1 TAKE 1 e CAPSULE CAPSULE CAPSULE (100 MG (100 MG (100 MG TOTAL) BY TOTAL) BY TOTAL) BY MOUTH EVERY MOUTH EVERY MOUTH 12 (TWELVE) 12 (TWELVE) EVERY 12 HOURS FOR 6 HOURS FOR 6 (TWELVE) DAYS. DAYS. HOURS FOR 6 DAYS. mupirocin 2 mupirocin 2 No mupirocin [place] % topical % topical 2 % Famil y ointment ointment topical Prac tic APPLY 1 G APPLY 1 G ointment e TOPICALLY 2 TOPICALLY 2 APPLY 1 G (TWO) TIMES (TWO) TIMES TOPICALLY DAILY DAILY 2 (TWO) BETWEEN BETWEEN TIMES TOES. NO TOES. NO DAILY MORE MORE BETWEEN REFILLS REFILLS TOES. NO THROUGH MY THROUGH MY MORE OFFICE. OFFICE. REFILLS THROUGH MY OFFICE. omeprazole omeprazole No omeprazole [facility] 20 mg 20 mg 20 mg Family capsule,del capsule,del capsule,de Practic ayed ayed layed e release release release TAKE 1 TAKE 1 TAKE 1 CAPSULE BY CAPSULE BY CAPSULE BY MOUTH EVERY MOUTH EVERY MOUTH DAY DAY EVERY DAY oxycodone-a oxycodone-a No oxycodone- [facility] cetaminophe cetaminophe acetaminop Family n 10 mg-325 n 10 mg-325 hen 10 Practic mg tablet mg tablet mg-325 mg e TAKE 1 TAKE 1 tablet TABLET BY TABLET BY TAKE 1 MOUTH EVERY MOUTH EVERY TABLET BY 6 HOURS 6 HOURS MOUTH NEEDED FOR NEEDED FOR EVERY 6 7 DAYS 7 DAYS HOURS NEEDED FOR 7 DAYS pantoprazol pantoprazol No pantoprazo [place] e 40 mg e 40 mg le 40 mg Famil y tablet,[place] tablet,m[place]etta tablet,del Practic yed release yed release ayed e TAKE 1 TAKE 1 release TABLET BY TABLET BY TAKE 1 MOUTH EVERY MOUTH EVERY TABLET BY DAY FOR 30 DAY FOR 30 MOUTH DAYS DAYS EVERY DAY FOR 30 DAYS povidone-io povidone-io No povidone-i [facility] dine 10 % dine 10 % odine 10 % [facility] topical topical topical Practi c solution solution solution e APPLY TO APPLY TO APPLY TO FEET FEET FEET INSTRUCTED INSTRUCTED INSTRUCTED BY BY BY PODIATRY. PODIATRY. PODIATRY. NO MORE NO MORE NO MORE REFILLS REFILLS REFILLS THROUGH MY THROUGH MY THROUGH MY OFFICE. OFFICE. OFFICE. Tradjenta 5 Tradjenta 5 No 1 Q1D Tradjenta [place] mg tablet mg tablet 5 mg Famil y Take 1 Take 1 tablet Practic tablet tablet Take 1 e every day every day tablet by oral by oral every day route for route for by oral 30 days. 30 days. route for 30 days. Vital Signs Vital Name Observation Time Observation [...] 165.1 cm WEIGHT 2020-11-21 23:36:00 102.2 kg BP Diastolic 2021-11-12 00:00:00 67 mm[Hg] [facility] Height 2021-11-12 00:00:00 65 [in_i] [facility] BMI (Body Mass Index) 2021-11-12 00:00:00 26.1 kg/m2 [facility] BP Systolic 2021-11-12 00:00:00 128 mm[Hg] [facility] Body Weight 2021-11-12 00:00:00 157 [lb_av] [facility] Systolic blood 2021-10-16 18:15:00 122 mm[Hg] [facility] pressure Medicine Diastolic blood 2021-10-16 18:15:00 74 mm[Hg] [facility] of pressure Medicine Heart rate 2021-10-16 18:15:00 78 /min [facility] Body height 2021-10-16 18:15:00 165.1 cm [facility] Body weight 2021-10-16 18:15:00 71.215 kg [facility] BMI 2021-10-16 18:15:00 26.13 kg/m2 [facility] WEIGHT 2021-10-01 17:30:00 76 kg WEIGHT 2021-10-01 14:30:00 77 kg HEIGHT 2021-10-01 06:39:00 165.1 cm WEIGHT 2021-10-01 06:39:00 77.111 kg WEIGHT 2021-10-01 17:30:00 76 kg WEIGHT 2021-10-01 14:30:00 77 kg HEIGHT 2021-10-01 06:39:00 165.1 cm WEIGHT 2021-10-01 06:39:00 77.111 kg Systolic blood 2021-09-09 18:06:00 139 mm[Hg] [facility] pressure Medicine Diastolic blood 2021-09-09 18:06:00 71 mm[Hg] [facility] pressure Medicine Heart rate 2021-09-09 18:06:00 80 /min [facility] Body height 2021-09-09 18:06:00 165.1 cm [facility] Body weight 2021-09-09 18:06:00 71.215 kg [facility] BMI 2021-09-09 18:06:00 26.13 kg/m2 [facility] Systolic blood 2021-09-04 15:30:00 179 mm[Hg] [facility] pressure Medicine Diastolic blood 2021-09-04 15:30:00 83 mm[Hg] [facility] pressure Medicine Heart rate 2021-09-04 15:30:00 79 /min [facility] Body height 2021-09-04 15:30:00 165.1 cm [facility] Body weight 2021-09-04 15:30:00 71.215 kg [facility] BMI 2021-09-04 15:30:00 26.13 kg/m2 [facility] Systolic blood 2021-09-04 14:33:00 179 mm[Hg] [facility] of pressure Medicine Diastolic blood 2021-09-04 14:33:00 83 mm[Hg] [facility] pressure Medicine Heart rate 2021-09-04 14:33:00 79 /min [facility] Body height 2021-09-04 14:33:00 165.1 cm [facility] Body weight 2021-09-04 14:33:00 71.5 kg [facility] BMI 2021-09-04 14:33:00 26.23 kg/m2 [facility] Systolic blood 2021-08-05 18:17:00 165 mm[Hg] [facility] of pressure Medicine Diastolic blood 2021-08-05 18:17:00 71 mm[Hg] [facility] pressure Medicine Heart rate 2021-08-05 18:17:00 71 /min [facility] Body height 2021-08-05 18:17:00 165.1 cm [facility] Body weight 2021-08-05 18:17:00 81.194 kg [facility] BMI 2021-08-05 18:17:00 29.79 kg/m2 [facility] Systolic blood 2021-07-25 20:56:00 168 mm[Hg] [facility] of pressure Medicine Diastolic blood 2021-07-25 20:56:00 81 mm[Hg] [facility] pressure Medicine Heart rate 2021-07-25 20:56:00 61 /min [facility] Body height 2021-07-25 20:56:00 165.1 cm [facility] Body weight 2021-07-25 20:56:00 81.194 kg [facility] BMI 2021-07-25 20:56:00 29.79 kg/m2 [facility] WEIGHT 2021-07-10 10:30:00 68 kg WEIGHT 2021-07-08 11:00:00 70 kg WEIGHT 2021-07-08 07:40:00 72 kg WEIGHT 2021-07-05 10:47:00 69.9 kg WEIGHT 2021-07-05 07:30:00 71.9 kg WEIGHT 2021-07-03 11:09:00 71.9 kg HEIGHT 2021-07-02 09:13:00 165.1 cm WEIGHT 2021-07-02 09:13:00 73.936 kg HEIGHT 2021-07-01 13:44:00 165.1 cm WEIGHT 2021-07-01 13:44:00 73.029 kg WEIGHT 2021-07-10 10:30:00 68 kg WEIGHT 2021-07-08 11:00:00 70 kg WEIGHT 2021-07-08 07:40:00 72 kg WEIGHT 2021-07-05 10:47:00 69.9 kg WEIGHT 2021-07-05 07:30:00 71.9 kg WEIGHT 2021-07-03 11:09:00 71.9 kg HEIGHT 2021-07-02 09:13:00 165.1 cm WEIGHT 2021-07-02 09:13:00 73.936 kg HEIGHT 2021-07-01 13:44:00 165.1 cm WEIGHT 2021-07-01 13:44:00 73.029 kg Body height 2021-06-03 21:09:00 165.1 cm [facility] Body weight 2021-06-03 21:09:00 81.194 kg [facility] BMI 2021-06-03 21:09:00 29.79 kg/m2 [facility] WEIGHT 2021-05-10 11:15:00 85 kg WEIGHT 2021-05-09 08:18:00 87.454 kg WEIGHT 2021-05-08 17:58:00 85.2 kg HEIGHT 2021-05-08 03:00:00 165.1 cm WEIGHT 2021-05-06 17:40:00 86.9 kg WEIGHT 2021-05-06 14:25:00 88.5 kg WEIGHT 2021-05-03 11:45:00 86.5 kg WEIGHT 2021-05-03 08:45:00 87.5 kg WEIGHT 2021-04-30 21:00:00 87.181 kg WEIGHT 2021-05-10 11:15:00 85 kg WEIGHT 2021-05-09 08:18:00 87.454 kg WEIGHT 2021-05-08 17:58:00 85.2 kg HEIGHT 2021-05-08 03:00:00 165.1 cm WEIGHT 2021-05-06 17:40:00 86.9 kg WEIGHT 2021-05-06 14:25:00 88.5 kg WEIGHT 2021-05-03 11:45:00 86.5 kg WEIGHT 2021-05-03 08:45:00 87.5 kg WEIGHT 2021-04-30 21:00:00 87.181 kg WEIGHT 2021-03-20 18:30:00 76 kg WEIGHT [...] kg Systolic blood 2021-01-24 20:41:00 151 mm[Hg] [facility] pressure Medicine Diastolic blood 2021-01-24 20:41:00 76 mm[Hg] [facility] pressure Medicine Heart rate 2021-01-24 20:41:00 61 /min [facility] Body height 2021-01-24 20:41:00 165.1 cm [facility] Body weight 2021-01-24 20:41:00 98.884 kg [facility] BMI 2021-01-24 20:41:00 36.28 kg/m2 [facility] HEIGHT 2021-01-03 17:03:00 165.1 cm WEIGHT 2021-01-03 [...] kg Systolic blood 2019-07-28 19:08:00 121 mm[Hg] [facility] pressure Medicine Diastolic blood 2019-07-28 19:08:00 77 mm[Hg] [facility] Medicine Heart rate 2019-07-28 19:08:00 93 [facility] 2019-07-28 19:08:00 15 /min [facility] Body height 2019-07-28 19:08:00 165.1 cm [facility] Body weight 2019-07-28 19:08:00 103.42 kg [facility] BMI 2019-07-28 19:08:00 37.94 kg/m2 [facility] Oxygen saturation in 2019-07-28 19:08:00 96 /min [facility] Arterial blood by [facility] Pulse oximetry Systolic blood 2019-07-28 19:08:00 121 mm[Hg] [facility] pressure Medicine Diastolic blood 2019-07-28 19:08:00 77 mm[Hg] [facility] Medicine Heart rate 2019-07-28 19:08:00 93 /min [facility] Respiratory rate 2019-07-28 19:08:00 15 /min [facility] Body height 2019-07-28 19:08:00 165.1 cm [facility] Body weight 2019-07-28 19:08:00 103.42 kg [facility] Medicine BMI 2019-07-28 19:08:00 37.94 [facility]m2 [facility] Oxygen saturation in 2019-07-28 19:08:00 96 /min [facility] of Arterial blood by Medicine Pulse oximetry Systolic blood 2018-12-14 18:05:00 103 mm[Hg] [facility] of pressure Medicine Diastolic blood 2018-12-14 18:05:00 59 mm[Hg] [facility] pressure Medicine Heart rate 2018-12-14 18:05:00 92 /min [facility] Medicine Respiratory rate 2018-12-14 18:05:00 16 /min [facility] Body height 2018-12-14 18:05:00 165.1 cm [facility] Body weight 2018-12-14 18:05:00 97.523 [facility] BMI 2018-12-14 18:05:00 35.78 kg/m2 [facility] Oxygen saturation in 2018-12-14 18:05:00 95 /min [facility] Arterial blood by Medicine Pulse oximetry Systolic blood 2018-12-14 18:05:00 103 mm[Hg] [facility] Medicine Diastolic blood 2018-12-14 18:05:00 59 mm[Hg] [facility] pressure Medicine Heart rate 2018-12-14 18:05:00 92 /min [facility] Respiratory rate 2018-12-14 18:05:00 16 /min [facility] Body height 2018-12-14 18:05:00 165.1 cm [facility] Body weight 2018-12-14 18:05:00 97.523 [facility] BMI 2018-12-14 18:05:00 35.78 kg/m2 [facility] Oxygen saturation in 2018-12-14 18:05:00 95 /min [facility] of Arterial blood by Medicine Pulse oximetry Procedures Procedure Date / Time Performed Performing Clinician [facility] e PROSTHETICS/ORTHOTICS 2021-09-09 17:17:46 [facility] INITIAL Medicine XR HAND 3+ VIEWS LEFT 2020-11-01 15:54:23 Shauna Ball [facility] Plan of Care Planned Activity Planned Date Details Comments Source Diagnostic Test 2021-11-12 glucose, fingerstick, [facility] Pending 00:00:00 blood [code = glucose, Pract ice fingerstick, blood] Diagnostic Test 2021-11-12 hemoglobin A1C, [place] F amily Pending 00:00:00 fingerstick [code = Practice hemoglobin A1C, fingerstick] Diagnostic Test 2021-11-12 microalbumin/creatinin Vi ll[facility] Family Pending 00:00:00 e, mass ratio, urine Practic e [code = microalbumin/creatinin e, mass ratio, urine] Diagnostic Test 2021-11-12 lipid panel, serum [facility] Family Pending 00:00:00 [code = lipid panel, Practic e serum] Diagnostic Test 2021-11-12 CMP, serum or plasma Vill age Family Pending 00:00:00 [code = CMP, serum or Practi ce plasma] Diagnostic Test 2021-11-12 CBC w/ auto diff [code Vi ll[facility] Family Pending 00:00:00 = CBC w/ auto diff] Practice Diagnostic Test 2021-11-12 TSH, serum or plasma Vill age Family Pending 00:00:00 [code = TSH, serum or Practi ce plasma] Diagnostic Test 2021-11-12 T4, free, serum [code [facility] Pending 00:00:00 = T4, free, serum] Practice Future Scheduled 2021-10-17 Screening for [facility] Col lege Test 16:31:47 malignant neoplasm of of Med lenkane colon (procedure) [code = 745582221] Future Scheduled 2021-10-17 Pneumococcal Combined [facility] Test 16:31:47 (1 - PCV) [code = of Medicin e Pneumococcal Combined (1 - PCV)] Future Scheduled 2021-10-17 TETANUS SHOT (ADULT) [facility] Test 16:31:47 [code = TETANUS SHOT of Medi cine (ADULT)] Future Scheduled 2021-10-17 Diabetic foot [facility] Col lege Test 16:31:47 examination of Medicine (regime/therapy) [code = 376847644] Future Scheduled 2021-10-17 ANNUAL DIABETIC [facility] C ollege Test 16:31:47 RETINOPATHY SCREENING of Med icine [code = ANNUAL DIABETIC RETINOPATHY SCREENING] Future Scheduled 2021-10-17 Hepatitis C screening Ba [facility] Test 16:31:47 (procedure) [code = of Medic ine [id number]] Future Scheduled 2021-10-17 [facility] virus screening of Medicine (procedure) [code = 998657657] Future Scheduled 2021-10-17 ZOSTER VACCINE (1 of [facility] Test 16:31:47 2) [code = ZOSTER of Medicin e VACCINE (1 of 2)] Future Scheduled 2021-10-17 MEDICARE AWV (Initial) [facility] Test 16:31:47 [code = MEDICARE AWV of Medi cine (Initial)] Future Scheduled 2021-10-17 COVID-19 Vaccine (4 - Ba [facility] Test 16:31:47 Booster for Pfizer of Medici ne series) [code = COVID-19 Vaccine (4 - Booster for Pfizer series)] Future Scheduled 2021-10-17 BMI FOLLOW UP PLAN [facility] Test 16:31:47 [code = BMI FOLLOW UP of Med icine PLAN] Future Scheduled 2021-10-17 FLU VACCINE > 6 MONTHS B [facility] Test 16:31:47 [code = FLU VACCINE > of Med icine 6 MONTHS] Future Scheduled 2021-10-16 US ARTERIAL LEGS 1 Occurrences [facility] Test 14:07:39 BILATERAL [code = starting of Medicin e 71832-5] 10/16/2021 until 10/16/2022 Future Scheduled 2021-09-21 Screening for [facility] Col lege Test 12:39:49 malignant neoplasm of of Med icine colon (procedure) [code = 087555723] Future Scheduled 2021-09-21 Pneumococcal Combined Ba [facility] Test 12:39:49 (1 of 2 - PPSV23) of Medicin e [code = Pneumococcal Combined (1 of 2 - PPSV23)] Future Scheduled 2021-09-21 TETANUS SHOT (ADULT) [facility] Test 12:39:49 [code = TETANUS SHOT of Medi cine (ADULT)] Future Scheduled 2021-09-21 Diabetic foot [facility] Col [facility]ge Test 12:39:49 examination of Medicine (regime/therapy) [code = [id number]] Future Scheduled 2021-09-21 ANNUAL DIABETIC [facility] C ollege Test 12:39:49 RETINOPATHY SCREENING of Med icine [code = ANNUAL DIABETIC RETINOPATHY SCREENING] Future Scheduled 2021-09-21 Hepatitis C screening Ba [facility] Test 12:39:49 (procedure) [code = of Medic ine [id number]] Future Scheduled 2021-09-21 Human immunodeficiency B [facility] Test 12:39:49 virus screening of Medicine (procedure) [code = 545575240] Future Scheduled 2021-09-21 MEDICARE AWV (Initial) B [facility] Test 12:39:49 [code = MEDICARE AWV of Medi cine (Initial)] Future Scheduled 2021-09-21 ZOSTER VACCINE (1 of [facility] Test 12:39:49 2) [code = ZOSTER of Medicin e VACCINE (1 of 2)] Future Scheduled 2021-09-21 BMI FOLLOW UP PLAN [facility] Test 12:39:49 [code = BMI FOLLOW UP of Med icine PLAN] Future Scheduled 2021-09-21 FLU VACCINE > 6 MONTHS B [facility] Test 12:39:49 [code = FLU VACCINE > of Med icine 6 MONTHS] Future Scheduled 2021-09-09 [place] MULTI DEN INSERT 1 Occurrences [facility] Test 17:17:46 CUSTOM MOLD [code = starting of Medic ine A5513] 09/09/2021 until 09/09/2022 Future Scheduled 2021-09-09 [place] DIAB SHOE FOR 1 Occurrences [facility] Test 17:17:46 DENSITY INSERT [code = starting of Me dicine A5500] 09/09/2021 until 09/09/2022 Future Scheduled 2021-09-09 [place] TIBIAL TUBERCLE HGT 1 Occurrences [facility] Test 17:17:46 W/ TOE F [code = starting of Medicine L5020] 09/09/2021 until 09/09/2022 Future Scheduled 2021-09-09 [place] BELOW KNEE ACRYLIC 1 Occurrences B [facility] Test 17:17:46 SOCKET [code = L5629] starting of Med icine 09/09/2021 until 09/09/2022 Future Scheduled 2021-09-09 [place] ENDO BK ULTRA-LIGHT 1 Occurrences [facility] Test 17:17:46 MATERIAL [code = starting of Medicine L5940] 09/09/2021 until 09/09/2022 Future Scheduled 2021-09-09 Screening for [facility]ge Test 13:00:32 malignant neoplasm of of Med icine colon (procedure) [code = 303109714] Future Scheduled 2021-09-09 Pneumococcal Combined Ba [facility] Test 13:00:32 (1 of 2 - PPSV23) of Medicin e [code = Pneumococcal Combined (1 of 2 - PPSV23)] Future Scheduled 2021-09-09 TETANUS SHOT (ADULT) [facility] Test 13:00:32 [code = TETANUS SHOT of Medi cine (ADULT)] Future Scheduled 2021-09-09 Diabetic foot [facility] [employer] Test 13:00:32 examination of Medicine (regime/therapy) [code = 826224378] Future Scheduled 2021-09-09 ANNUAL DIABETIC [facility] C [facility]lege Test 13:00:32 RETINOPATHY SCREENING of Med icine [code = ANNUAL DIABETIC RETINOPATHY SCREENING] Future Scheduled 2021-09-09 Hepatitis C screening Ba [facility] Test 13:00:32 (procedure) [code = of Medic ine 476284707] Future Scheduled 2021-09-09 [facility] 13[facility]:32 virus screening of Medicine (procedure) [code = 608231946] Future Scheduled 2021-09-09 MEDICARE AWV (Initial) [facility] Test 13:00:32 [code = MEDICARE AWV of Medi cine (Initial)] Future Scheduled 2021-09-09 ZOSTER VACCINE (1 of [facility] Test 13:00:32 2) [code = ZOSTER of Medicin e VACCINE (1 of 2)] Future Scheduled 2021-09-09 BMI FOLLOW UP PLAN [facility] Test 13:00:32 [code = BMI FOLLOW UP of Med icine PLAN] Future Scheduled 2021-09-09 FLU VACCINE > 6 MONTHS [facility] 13:00:32 [code = FLU VACCINE > of Med icine 6 MONTHS] Future Scheduled 2021-09-05 Screening for [facility] [employer] [facility] Test 10:49:24 malignant neoplasm of of Med icine colon (procedure) [code = 855141922] Future Scheduled 2021-09-05 Pneumococcal Combined Ba [facility] Test 10:49:24 (1 of 2 - PPSV23) of Medicin e [code = Pneumococcal Combined (1 of 2 - PPSV23)] Future Scheduled 2021-09-05 TETANUS SHOT (ADULT) [facility] Test 10:49:24 [code = TETANUS SHOT of Medi cine (ADULT)] Future Scheduled 2021-09-05 Diabetic foot [facility] Test 10:49:24 examination of Medicine (regime/therapy) [code = 590956261] Future Scheduled 2021-09-05 ANNUAL DIABETIC [facility] Test 10:49:24 RETINOPATHY SCREENING of Med icine [code = ANNUAL DIABETIC RETINOPATHY SCREENING] Future Scheduled 2021-09-05 Hepatitis C screening [facility] Test 10:49:24 (procedure) [code = of Medic ine 586977411] Future Scheduled 2021-09-05 Human immunodeficiency B [facility] Test 10:49:24 virus screening of Medicine (procedure) [code = 183764044] Future Scheduled 2021-09-05 MEDICARE AWV (Initial) [facility] Test 10:49:24 [code = MEDICARE AWV of Medi cine (Initial)] Future Scheduled 2021-09-05 ZOSTER VACCINE (1 of [facility] Test 10:49:24 2) [code = ZOSTER of Medicin e VACCINE (1 of 2)] Future Scheduled 2021-09-05 BMI FOLLOW UP PLAN [facility] [employer] Test 10:49:24 [code = BMI FOLLOW UP of Med icine PLAN] Future Scheduled 2021-09-05 FLU VACCINE > 6 MONTHS [facility] Test 10:49:24 [code = FLU VACCINE > of Med icine 6 MONTHS] Future Scheduled 2021-09-04 [place] ARTERIAL LEG RIGHT 1 Occurrences [facility] Test 10:29:48 [code = 17275] starting of Medicine 09/04/2021 until 09/04/2022 Future Scheduled 2021-09-04 WOUND CARE Ordered: [facility] Ari [employer]ge Test 09:55:50 INSTRUCTIONS [code = 09/04/2021 of Medi cine 96710] Future Scheduled 2021-08-09 Screening for [facility] Test 16:08:58 malignant neoplasm of of Med icine colon (procedure) [code = 442560376] Future Scheduled 2021-08-09 Pneumococcal Combined [facility] Test 16:08:58 (1 of 2 - PPSV23) of Medicin e [code = Pneumococcal Combined (1 of 2 - PPSV23)] Future Scheduled 2021-08-09 TETANUS SHOT (ADULT) [facility] Test 16:08:58 [code = TETANUS SHOT of Medi cine (ADULT)] Future Scheduled 2021-08-09 Diabetic foot [facility] Test 16:08:58 examination of Medicine (regime/therapy) [code = 799336907] Future Scheduled 2021-08-09 ANNUAL DIABETIC [facility] Test 16:08:58 RETINOPATHY SCREENING of Med icine [code = ANNUAL DIABETIC RETINOPATHY SCREENING] Future Scheduled 2021-08-09 Hepatitis C screening Ba [facility] Test 16:08:58 (procedure) [code = of Medic ine 110535585] Future Scheduled 2021-08-09 Human immunodeficiency B [facility] Test 16:08:58 virus screening of Medicine (procedure) [code = 495598720] Future Scheduled 2021-08-09 MEDICARE AWV (Initial) B [facility] Test 16:08:58 [code = MEDICARE AWV of Medi cine (Initial)] Future Scheduled 2021-08-09 ZOSTER VACCINE (1 of [facility] Test 16:08:58 2) [code = ZOSTER of Medicin e VACCINE (1 of 2)] Future Scheduled 2021-08-09 FLU VACCINE > 6 MONTHS B [facility] Test 16:08:58 [code = FLU VACCINE > of Med icine 6 MONTHS] Future Scheduled 2021-08-09 BMI FOLLOW UP PLAN [facility] Test 16:08:58 [code = BMI FOLLOW UP of Med icine PLAN] Future Scheduled 2021-08-05 WOUND CARE Ordered: [facility] [employer] Test 14:03:39 INSTRUCTIONS [code = 08/05/2021 of Medi cine 61607] Future Scheduled 2021-08-02 Screening for [facility] Test 08:05:25 malignant neoplasm of of Med icine colon (procedure) [code = 929528288] Future Scheduled 2021-08-02 Pneumococcal Combined Ba [facility] Test 08:05:25 (1 of 2 - PPSV23) of Medicin e [code = Pneumococcal Combined (1 of 2 - PPSV23)] Future Scheduled 2021-08-02 TETANUS SHOT (ADULT) [facility] Test 08:05:25 [code = TETANUS SHOT of Medi cine (ADULT)] Future Scheduled 2021-08-02 Diabetic foot [facility] [employer] Test 08:05:25 examination of Medicine (regime/therapy) [code = 969386792] Future Scheduled 2021-08-02 ANNUAL DIABETIC [facility] [employer] Test 08:05:25 RETINOPATHY SCREENING of Med icine [code = ANNUAL DIABETIC RETINOPATHY SCREENING] Future Scheduled 2021-08-02 Hepatitis C screening [facility] [employer] Test 08:05:25 (procedure) [code = of Medic ine 634018877] Future Scheduled 2021-08-02 Human immunodeficiency [facility] [employer] [employer] Test 08:05:25 virus screening of Medicine (procedure) [code = 878106919] Future Scheduled 2021-08-02 MEDICARE AWV (Initial) [facility] [employer] Test 08:05:25 [code = MEDICARE AWV of Medi cine (Initial)] Future Scheduled 2021-08-02 ZOSTER VACCINE (1 of [facility] [employer] Test 08:05:25 2) [code = ZOSTER of Medicin e VACCINE (1 of 2)] Future Scheduled 2021-08-02 FLU VACCINE > 6 MONTHS [facility] [employer] [employer] Test 08:05:25 [code = FLU VACCINE > of Med icine 6 MONTHS] Future Scheduled 2021-08-[address] UP PLAN [facility] Test 08:05:25 [code = BMI FOLLOW UP of Med icine PLAN] Future Scheduled 2021-07-25 [place] ARTERIAL LEG RIGHT 1 Occurrences [facility] [employer] [employer] Test 16:35:30 [code = 25915] starting of Medicine 07/25/2021 until 07/25/2022 Future Scheduled 2021-06-07 Screening for [facility] [employer] Test 12:23:59 malignant neoplasm of of Med icine colon (procedure) [code = 401285628] Future Scheduled 2021-06-07 Pneumococcal Combined [facility] [employer] [employer] Test 12:23:59 (1 of 2 - PPSV23) of Medicin e [code = Pneumococcal Combined (1 of 2 - PPSV23)] Future Scheduled 2021-06-07 TETANUS SHOT (ADULT) [facility] [employer] Test 12:23:59 [code = TETANUS SHOT of Medi cine (ADULT)] Future Scheduled 2021-06-07 Diabetic foot [facility] [employer] Test 12:23:59 examination of Medicine (regime/therapy) [code = 067160151] Future Scheduled 2021-06-07 ANNUAL DIABETIC [facility] [employer] Test 12:23:59 RETINOPATHY SCREENING of Med icine [code = ANNUAL DIABETIC RETINOPATHY SCREENING] Future Scheduled 2021-06-07 Hepatitis C screening [facility] [employer] [facility] 12:23:59 (procedure) [code = of Medic ine 005954607] Future Scheduled 2021-06-07 Human immunodeficiency [facility] [employer] Test 12:23:59 virus screening of Medicine (procedure) [code = 419334299] Future Scheduled 2021-06-07 MEDICARE AWV (Initial) [facility] [employer] Test 12:23:59 [code = MEDICARE AWV of Medi cine (Initial)] Future Scheduled 2021-06-07 ZOSTER VACCINE (1 of [facility] 12:23:59 2) [code = ZOSTER of Medicin e VACCINE (1 of 2)] Future Scheduled 2021-06-07 FLU VACCINE > 6 MONTHS [facility] [employer] Test 12:23:59 [code = FLU VACCINE > of Med icine 6 MONTHS] Future Scheduled 2021-06-[address] UP [address]AN [facility] Test 12:23:59 [code = BMI FOLLOW UP of Med icine PLAN] Future Scheduled 2021-06-03 WOUND CARE Ordered: [facility] [employer] Test 16:15:42 INSTRUCTIONS [code = 06/03/2021 of Medi Slacker 57675] Future Scheduled 2021-02-07 Screening for [facility] Test 11:20:26 malignant neoplasm of of Med icine colon (procedure) [code = 580221778] Future Scheduled 2021-02-07 TETANUS SHOT (ADULT) [facility] Test 11:20:26 [code = TETANUS SHOT of Medi cine (ADULT)] Future Scheduled 2021-02-07 Diabetic foot [facility] [employer] Test 11:20:26 examination of Medicine (regime/therapy) [code = 912147486] Future Scheduled 2021-02-07 ANNUAL DIABETIC [facility] [employer] Test 11:20:26 RETINOPATHY SCREENING of Med icine [code = ANNUAL DIABETIC RETINOPATHY SCREENING] Future Scheduled 2021-02-07 Hepatitis C screening [facility] [employer] [employer] Test 11:20:26 (procedure) [code = of Medic ine 079112089] Future Scheduled 2021-02-07 Human immunodeficiency [facility] Test 11:20:26 virus screening of Medicine (procedure) [code = 483793927] Future Scheduled 2021-02-07 MEDICARE AWV (Initial) [facility] [employer] Test 11:20:26 [code = MEDICARE AWV of Medi Slacker (Initial)] Future Scheduled 2021-02-07 ZOSTER VACCINE (1 of [facility] [employer] Test 11:20:26 2) [code = ZOSTER of Medicin e VACCINE (1 of 2)] Future Scheduled 2021-02-07 FLU VACCINE > 6 MONTHS [facility] [employer] Test 11:20:26 [code = FLU VACCINE > of Med icine 6 MONTHS] Future Scheduled 2021-02-07 BMI FOLLOW UP PLAN [employer] Test 11:20:26 [code = BMI FOLLOW UP of Med icine PLAN] Future Scheduled 2021-02-07 Screening for [facility] [employer] Test 11:20:26 malignant neoplasm of of Med icine colon (procedure) [code = 668691414] Future Scheduled 2021-02-07 TETANUS SHOT (ADULT) [facility] [employer] [employer] Test 11:20:26 [code = TETANUS SHOT of Medi cine (ADULT)] Future Scheduled 2021-02-07 Diabetic foot [facility] [employer] Test 11:20:26 examination of Medicine (regime/therapy) [code = 245565250] Future Scheduled 2021-02-07 ANNUAL DIABETIC [facility] [employer] Test 11:20:26 RETINOPATHY SCREENING of Med icine [code = ANNUAL DIABETIC RETINOPATHY SCREENING] Future Scheduled 2021-02-07 Hepatitis C screening Ba [facility] Test 11:20:26 (procedure) [code = of Medic ine 475046196] Future Scheduled 2021-02-07 Human immunodeficiency [facility] Test 11:20:26 virus screening of Medicine (procedure) [code = 802953450] Future Scheduled 2021-02-07 MEDICARE AWV (Initial) [facility] Test 11:20:26 [code = MEDICARE AWV of Medi cine (Initial)] Future Scheduled 2021-02-07 ZOSTER VACCINE (1 of [facility] [employer] Test 11:20:26 2) [code = ZOSTER of Medicin e VACCINE (1 of 2)] Future Scheduled 2021-02-07 FLU VACCINE > 6 MONTHS [facility] [employer] Test 11:20:26 [code = FLU VACCINE > of Med icine 6 MONTHS] Future Scheduled 2021-02-07 BMI FOLLOW UP PLAN [employer] Test 11:20:26 [code = BMI FOLLOW UP of Med icine PLAN] Future Scheduled 2020-12-21 BMI FOLLOW UP PLAN [employer] [facility] [employer] Test 14:31:03 [code = BMI FOLLOW UP of Med icine PLAN] Future Scheduled 2020-12-21 Screening for [facility] [employer] Test 14:30:58 malignant neoplasm of of Med icine colon (procedure) [code = 084528172] Future Scheduled 2020-12-21 TETANUS SHOT (ADULT) [employer] Test 14:30:58 [code = TETANUS SHOT of Medi cine (ADULT)] Future Scheduled 2020-12-21 Diabetic foot [facility] [employer] Test 14:30:58 examination of Medicine (regime/therapy) [code = 707268097] Future Scheduled 2020-12-21 ANNUAL DIABETIC [facility] [employer] Test 14:30:58 RETINOPATHY SCREENING of Med icine [code = ANNUAL DIABETIC RETINOPATHY SCREENING] Future Scheduled 2020-12-21 Hepatitis C screening [facility] [employer] Test 14:30:58 (procedure) [code = of Medic ine 269041742] Future Scheduled 2020-12-21 Human immunodeficiency [facility] [employer] Test 14:30:58 virus screening of Medicine (procedure) [code = 817455616] Future Scheduled 2020-12-21 MEDICARE AWV (Initial) [facility] [employer] Test 14:30:58 [code = MEDICARE AWV of Medi cine (Initial)] Future Scheduled 2020-12-21 ZOSTER VACCINE (1 of [facility] [employer] Test 14:30:58 2) [code = ZOSTER of Medicin e VACCINE (1 of 2)] Future Scheduled 2020-12-21 FLU VACCINE > 6 MONTHS [facility] [employer] Test 14:30:58 [code = FLU VACCINE > of Med icine 6 MONTHS] Future Scheduled COLON CANCER [facility] [employer] Test SCREENING: COLONOSCOPY of Me syed [code = COLON CANCER SCREENING: COLONOSCOPY] Future Scheduled TETANUS SHOT (ADULT) [employer] [facility] [code = TETANUS SHOT of Medi cine (ADULT)] Future Scheduled Diabetic foot [facility] [employer] Test examination of Medicine (regime/therapy) [code = 032627413] Future Scheduled ANNUAL DIABETIC [facility] [employer] Test RETINOPATHY SCREENING of Med icine [code = ANNUAL DIABETIC RETINOPATHY SCREENING] Future Scheduled BMI FOLLOW UP PLAN [employer] Test [code = BMI FOLLOW UP of Med icine PLAN] Future Scheduled HIV SCREENING [code = [employer] [facility] HIV SCREENING] of Medicine Future Scheduled MEDICARE AWV (Initial) [facility] [employer] Test [code = MEDICARE AWV of Medi cine (Initial)] Future Scheduled FLU VACCINE > 6 MONTHS [employer] [facility] [code = FLU VACCINE > of Med icine 6 MONTHS] Future Scheduled COLON CANCER [facility] [employer] Test SCREENING: COLONOSCOPY of Me kunal [code = COLON CANCER SCREENING: COLONOSCOPY] Future Scheduled MEDICARE AWV [code = [facility] [facility] MEDICARE AWV] of Medicine Future Scheduled TETANUS SHOT (ADULT) [employer] Test [code = TETANUS SHOT of Medi cine (ADULT)] Future Scheduled Diabetic foot [facility] Test examination of Medicine (regime/therapy) [code = 815769330] Future Scheduled ANNUAL DIABETIC [facility] [employer] Test RETINOPATHY SCREENING of Med icine [code = ANNUAL DIABETIC RETINOPATHY SCREENING] Future Scheduled BMI FOLLOW UP PLAN [employer] Test [code = BMI FOLLOW UP of Med icine PLAN] Future Scheduled HIV SCREENING [code = [employer] [facility] HIV SCREENING] of Medicine Future Scheduled FLU VACCINE > 6 MONTHS [employer] [facility] [code = FLU VACCINE > of Med icine 6 MONTHS] Future Appointment 2021-12-12 Mariah Stout [facility] 00:00:[address]; Practice [address] [address] Future Appointment 2021-12-10 Mariah Stout [facility] 11:30:[address]; Practice [address], [place] [address] Encounters Start End Encounter Admission Attending Care Care Encounter Source Date/Time Date/Time Type Type Clinicians Facility Department ID 2021-07-26 Outpatient 3 [id number] ENCSL AML ENCSL 12:11:03 2021-07-12 Outpatient 3 FRANCES DOBBS ALEKSANDRA [id number] ENCPL 10:51:14 HERIBERTO 8 2021-07-10 Outpatient 3 JADON DOBBSPL ALEKSANDRA [id number] ENCPL 13:32:06 HERIBERTO 0216 2021-07-09 Outpatient 3 [id number] ENCPL REF [id number] ENCPL 15:08:23 2142021-07-09 Outpatient 3 [id number] ENCSL REF [id number] ENCSL 13:06:43 2021-03-03 Outpatient [facility] Surgery [id number] SLE 06:20:29 INDERJIT 2021-03-03 Outpatient [facility] Surgery [id number] [facility]H 04:50:43 [facility] 2021-03-03 Inpatient JACQUES, [facility] Surgery [id number] SLE 03:37:33 DISHA 2021-03-03 Outpatient DONNELLY, [facility] Surgery [id number] SLEH 03:34:33 [facility] 2020-11-21 Inpatient ER MASSUMI, [facility] [id number] [facility] 23:26:00 [facility] 2020-11-01 Outpatient [facility] [id number] [place] 10:36:56 Health 2020-08-01 Inpatient Adia, [facility] [id number] [facility] 09:30:00 Vitaly [id number] [facility] 2020-07-31 Inpatient EL Adia, [facility] [id number] [facility] 10:00:00 Vitaly [id number] [facility] 2021-11-12 2021-11-12 Outpatient Daniel_T VFP VFP [id number] [address] [place] [address] 03:46:00 03:46:00 [id number] Family [facility] 2021-11-12 2021-11-12 Steffen VFP [place] - [id number] V illage 00:00:00 00:00:00 [facility] Family CoronelCaitie - Practi sarita CARRILLO: [id number] VM_NINFA_Jose e [facility], [address], [place] [address] , Ph. 2021-10-22 2021-10-22 Outpatient Daniel_T VFP VFP [id number] [address] [place] [address] 10:45:00 10:45:00 [id number] [facility] 2021-10-22 2021-10-22 Outpatient Daniel_T VFP VFP [id number] [address] [place] [address] 10:45:00 10:45:00 [id number] Family Practic e 2021-10-16 2021-10-16 Office HEBER Hays [id number] [facility] 13:15:00 14:29:10 Visit Jayer AMBULATOR 350.1.13.21 College Y 0.2.7.2.686 of [id number] [facility] 825 e 2021-10-16 2021-10-16 Outpatient [facility] [id number] [facility] 10:07:38 14:24:55 Colleg e of Medicin e 2021-10-01 2021-10-03 Inpatient ZEESHAN PICKARD, SLE Surgery [id number] SLE 06:19:00 16:30:00 AYAAN 2021-10-01 2021-10-01 Outpatient [facility] [id number] [facility] 06:19:00 23:59:00 Colleg e of Medicin e 2021-10-01 2021-10-01 Outpatient [facility] [id number] [facility] 00:00:00 06:18:00 Colleg e of Medicin e 2021-09-09 2021-09-09 Office HEBER AHN [id number] [facility] 12:41:33 17:52:45 Visit KAROLINA AMBULATOR 350.1.13.21 College Y 0.2.7.2.686 of [id number] Medi papa 810 e 2021-09-04 2021-09-04 Office HEBER Hays [id number] [facility] 11:30:00 11:30:00 Visit Michael AMBULATOR 350.1.13.21 College Y 0.2.7.2.686 of [id number] [facility] papa 825 e 2021-09-04 2021-09-04 Office HEBER Looney [id number] [facility] 11:15:00 11:15:00 Visit Chris Hughes AMBULATOR 350.1.13.21 College Y 0.2.7.2.686 of [id number] Medi papa 825 e 2021-08-05 2021-08-05 Outpatient BCM [facility] [id number] [facility] 14:20:14 16:42:27 Colleg e of Medicin e 2021-08-05 2021-08-05 Office HEBER EGAN [id number] [facility] 12:51:28 14:16:02 Visit NIMISHA AMBULATOR 350.1.13.21 College Y 0.2.7.2.686 of [id number] Medi papa 825 e 2021-07-25 2021-07-25 Office HEBER Looney 1.2.840.114 [id number] [facility] 14:15:00 15:35:22 Visit Chris Hughes AMBULATOR 350.1.13.21 College Y 0.2.7.2.686 of [id number] [facility] 825 e 2021-07-02 2021-07-10 Inpatient EL FAROOQ, [facility] Surgery [id number] SLE 08:42:00 16:05:00 FRANKIE 2021-07-01 2021-07-01 Outpatient EL [facility] SLE [id number] SLE 14:03:35 23:59:00 2021-06-28 2021-06-28 Outpatient EL FAUSTINA [facility] SLE [id number] SLE 13:21:23 23:59:00 CHRIS 2021-06-28 2021-06-28 Outpatient EL SLE SLE [id number] SLE 00:00:00 00:00:00 2021-06-03 2021-06-03 Office HEBER LOONEY 1.2.840.114 [id number] [facility] 14:50:57 16:13:01 Visit CHRIS AMBULATOR 350.1.13.21 College Y 0.2.7.2.686 of [id number] [facility] 825 e 2021-04-30 2021-05-10 Inpatient ER [facility] [id number] SLE 20:20:00 16:21:00 Med 2021-03-26 2021-03-26 Outpatient SLE SLE [id number] SLE 00:00:00 00:00:00 2021-02-24 2021-03-21 Inpatient ER FAROOQ, SLE Surgery [id number] [facility] 02:17:00 13:36:00 FRANKIE 2021-03-19 2021-03-19 Outpatient EL SLE SLE [id number] [facility] 00:00:00 00:00:00 2021-02-24 2021-02-24 Outpatient Tam BUCK [id number] [facility] 02:17:00 23:59:00 Javid 2021-01-24 2021-01-24 Office HEBER LOONEY 1.2.840.114 [id number] [facility] 15:06:24 16:25:15 Visit CHRIS AMBULATOR 350.1.13.21 College Y 0.2.7.2.686 of [id number] [facility] 825 e 2021-01-07 2021-01-07 Outpatient HEBER DONNELLY [facility] [id number] [facility] 11:13:04 14:54:13 INDERJIT Colleg e of Medicin e 2021-01-07 2021-01-07 Outpatient [facility] [id number] [facility] 11:12:28 14:47:52 Colleg e of Medicin e 2021-01-03 2021-01-03 Emergency ER [facility] Emergency [id number] [facility] 16:56:00 16:56:00 2020-12-28 2020-12-28 Outpatient [facility] [id number] [facility] 05:31:00 23:59:00 Colleg e of Medicin e 2020-12-28 2020-12-28 Outpatient [facility] [id number] [facility] 00:00:00 05:30:00 Colleg e of Medicin e 2020-12-24 2020-12-24 Outpatient SLE SLE [id number] SLE 00:00:00 00:00:00 2020-12-17 2020-12-17 Office CRISTAL Donnelly 1.2.840.114 [id number] [facility] 16:45:00 17:15:00 Visit Inderjit AMBULATOR 350.1.13.21 College Cheli Y 0.2.7.2.686 of [id number] [facility] papa 825 e 2020-12-17 2020-12-17 Emergency ER [facility] Emergency [id number] SLE 14:54:00 14:54:00 2020-12-17 2020-12-17 Outpatient JIGNESH [facility] [id number] [facility] 00:00:00 00:00:00 NIMISHA 2020-12-17 2020-12-17 Outpatient JIGNESH, [facility] [id number] SLE 00:00:00 00:00:00 NIMISHA 2020-11-23 2020-11-23 Outpatient [facility] [id number] [facility] 00:00:00 23:59:00 Colleg e of Medicin e 2020-11-07 2020-11-07 Refill Miladis Dietrich [facility] 1.2.840. 114 [id number] [place] 00:00:00 00:00:00 Miladis Dietrich [facility] 350.1.13.58 Health [place] 9.2.7.2.686 [facility] [id number] 2020-11-07 2020-11-07 Refill Dietrich, [facility] 1.2.840.114 [id number] 00:00:00 00:00:00 Miladis [facility] 350.1.13.58 [place] 9.2.7.2.686 [facility] [id number] 2020-11-01 2020-11-01 Office Quinn, [facility] [id number] 744 [place] 09:40:07 12:10:45 Visit [facility] 350.1.13.58 Health IRONMAN 9.2.7.2.686 [facility] [phone] 1 2020-11-01 2020-11-01 Office Quinn, [facility] 1.2.840.114 [id number] 744 09:40:07 12:10:45 Visit [facility] 350.1.13.58 [place] 9.2.7.2.686 [facility] [id number] 1 2019-07-28 2019-07-28 Office HEBER Lipscomb 1.2.840.114 [id number] [facility] 11:24:51 16:32:38 Visit [facility] 350.1.13.21 College Y 0.2.7.2.686 of [id number] [facility] papa 370 e 2019-07-28 2019-07-28 Office HEBER Lipscomb 1.2.840.114 [id number] 036 11:24:51 16:32:38 Visit [facility] 350.1.13.21 Y 0.2.7.2.686 [id number] 370 2018-12-14 2018-12-14 Office HEBER Lipscomb 1.2.840.114 [id number] [facility] 11:15:58 13:39:25 Visit [facility] AMBULATOR 350.1.13.21 College Y 0.2.7.2.686 of [phone] [facility] 315 e 2018-12-14 2018-12-14 Office HEBER Lipscomb 1.2.840.114 [id number] 371 11:15:58 13:39:25 Visit [facility] 350.1.13.21 Y 0.2.7.2.686 [id number] 315 Results Test Description Test Time Test Comments Results Result Comments Source Hemoglobin A1c measurement device panel 2021-11-12 13:35:42 Test Item Value Reference Range Interpretation Comme nts Hemoglobin A1C Fingerstick: (test code = Hemoglobin A1C Fingerstick :) 6.7 [facility] grrhe1994-07-14 13:32:43 Test Item Value Reference Range Interpretation Comments Blood Glucose: mg/dl (test code = Blood 155 Glucose: mg/dl) [facility] [id number] 13:12:10 Test Item Value Reference Range Interpretation Comments POC-GLUCOSE METER 110 mg/dL 70-110 : TESTED A T [facility] 6720 (BEAKER) (test code = [facility] [employer] [facility], 1538) [address]: Administrative Aide/Techni glenis ID = [id number] for Jasmine Handley POCT-GLUCOSE [id number] 07:48:48 Test Item Value Reference Range Interpretation Comments POC-GLUCOSE METER 105 mg/dL 70-110 : TESTED A T [facility] 6720 (BEAKER) (test code = [employer] [facility], 1538) 66697: Administrative Aide/Techni glenis ID = [id number] for Noe lyons Kellie COMPREHENSIVE METABOLIC [id number] 05:40:07 Test Item Value Reference Range Interpretation Comments TOTAL PROTEIN 6.7 gm/dL 6.0-8.3 (BEAKER) (test code = 770) ALBUMIN (BEAKER) 3.4 g/dL 3.5-5.0 L (test code = 1145) ALKALINE PHOSPHATASE 114 U/L 40-150 (BEAKER) (test code = 346) BILIRUBIN TOTAL 0.3 mg/dL 0.2-1.2 (BEAKER) (test code = 377) SODIUM (BEAKER) (test 139 meq/L 136-145 code = 381) POTASSIUM (BEAKER) 5.0 meq/L 3.5-5.1 (test code = 379) CHLORIDE (BEAKER) 96 meq/L 98-107 L (test code = 382) CO2 (BEAKER) (test 29 meq/L 22-29 code = 355) BLOOD UREA NITROGEN 28 mg/dL 7-21 H (BEAKER) (test code = 354) CREATININE (BEAKER) 5.21 mg/dL 0.57-1.25 H (test code = 358) GLUCOSE RANDOM 146 mg/dL 70-105 H (BEAKER) (test code = 652) CALCIUM (BEAKER) 9.3 mg/dL 8.4-10.2 (test code = 697) AST (SGOT) (BEAKER) 12 U/L 5-34 (test code = 353) ALT (SGPT) (BEAKER) 14 U/L 6-55 (test code = 347) EGFR (BEAKER) (test 12 mL/min/1.73 ESTIMA FRANKLIN GFR IS code = 1092) sq m NOT ACCURATE CREATININE CLEARANCE IN PREDICTING GLOMERULAR FILTRATION RATE . ESTIMATED GFR I S NOT APPLICABLE FOR DIALYSIS PATIEN TS. Administrative Aide ID - PIAYA [id number] 05:34:43 Test Item Value Reference Range Interpretation Comments PHOSPHORUS (BEAKER) (test code = 5.9 mg/dL 2.3-4.7 H 604) Administrative Aide ID - PEGGY LCBC W/PLT COUNT & AUTO [id number] 05:17:31 Test Item Value Reference Range Interpretation Comments WHITE BLOOD CELL COUNT (BEAKER) 3.9 K/ L 3.5-10.5 (test code = 775) RED BLOOD CELL COUNT (BEAKER) 4.32 M/ L 4.63-6.08 L (test code = 761) HEMOGLOBIN (BEAKER) (test code = 12.9 GM/DL 13.7-17.5 L 410) HEMATOCRIT (BEAKER) (test code = 42.7 % 40.1-51.0 411) MEAN CORPUSCULAR VOLUME (BEAKER) 98.8 fL 79.0-92.2 H (test code = 753) MEAN CORPUSCULAR HEMOGLOBIN 29.9 pg 25.7-32.2 (BEAKER) (test code = 751) MEAN CORPUSCULAR HEMOGLOBIN CONC 30.2 GM/DL 32.3-36.5 L (BEAKER) (test code = 752) RED CELL DISTRIBUTION WIDTH 13.4 % 11.6-14.4 (BEAKER) (test code = 412) PLATELET COUNT (BEAKER) (test 217 K/CU MM 150-450 code = 756) MEAN PLATELET VOLUME (BEAKER) 9.8 fL 9.4-12.4 (test code = 754) NUCLEATED RED BLOOD CELLS 0 /100 WBC 0-0 (BEAKER) (test code = 413) NEUTROPHILS RELATIVE PERCENT 47 % (BEAKER) (test code = 429) LYMPHOCYTES RELATIVE PERCENT 37 % (BEAKER) (test code = 430) MONOCYTES RELATIVE PERCENT 11 % (BEAKER) (test code = 431) EOSINOPHILS RELATIVE PERCENT 4 % (BEAKER) (test code = 432) BASOPHILS RELATIVE PERCENT 1 % (BEAKER) (test code = 437) NEUTROPHILS ABSOLUTE COUNT 1.81 K/ L 1.78-5.38 (BEAKER) (test code = 670) LYMPHOCYTES ABSOLUTE COUNT 1.43 K/ L 1.32-3.57 (BEAKER) (test code = 414) MONOCYTES ABSOLUTE COUNT (BEAKER) 0.43 K/ L 0.30-0.82 (test code = 415) EOSINOPHILS ABSOLUTE COUNT 0.16 K/ L 0.04-0.54 (BEAKER) (test code = 416) BASOPHILS ABSOLUTE COUNT (BEAKER) 0.04 K/ L 0.01-0.08 (test code = 417) IMMATURE GRANULOCYTES-RELATIVE 0 % 0-1 PERCENT (BEAKER) (test code = 2801) POCT-GLUCOSE [id number] 21:10:27 Test Item Value Reference Range Interpretation Comments POC-GLUCOSE METER 192 mg/dL 70-110 H : TESTED A T [facility] 6720 (BEAKER) ([facility] = [facility] 1538[facility] 11568: Administrative Aide/Techni glenis ID = [id number] for JINNY AMEZQUITA POCT-GLUCOSE [id number] 17:53:03 Test Item Value Reference Range Interpretation Comments POC-GLUCOSE METER 172 mg/dL 70-110 H : TESTED A T [facility] 6720 (BEAKER) (test code = BERTLESIA RAMIREZ [place], 1538) 41976: Administrative Aide/Techni glenis ID = [id number] for CO AIME CANALESGAIL POCT-GLUCOSE [id number] 07:07:27 Test Item Value Reference Range Interpretation Comments POC-GLUCOSE METER 97 mg/dL 70-110 : Notified RN/MD: TESTED (BEAKER) (test code = AT [facility] [address] [facility] 1538) [facility], 770 30: Administrative Aide/Techni glenis ID = [id number] for GUALBERTO MEYER COMPREHENSIVE METABOLIC [id number] 05:38:21 Test Item Value Reference Range Interpretation Comments TOTAL PROTEIN 5.8 gm/dL 6.0-8.3 L (BEAKER) (test code = 770) ALBUMIN (BEAKER) 3.0 g/dL 3.5-5.0 L (test code = 1145) ALKALINE PHOSPHATASE 106 U/L 40-150 (BEAKER) (test code = 346) BILIRUBIN TOTAL 0.3 mg/dL 0.2-1.2 (BEAKER) (test code = 377) SODIUM (BEAKER) (test 141 meq/L 136-145 code = 381) POTASSIUM (BEAKER) 5.2 meq/L 3.5-5.1 H (test code = 379) CHLORIDE (BEAKER) 100 meq/L 98-107 (test code = 382) CO2 (BEAKER) (test 27 meq/L 22-29 code = 355) BLOOD UREA NITROGEN 34 mg/dL 7-21 H (BEAKER) (test code = 354) CREATININE (BEAKER) 5.55 mg/dL 0.57-1.25 H (test code = 358) GLUCOSE RANDOM 96 mg/dL 70-105 (BEAKER) (test code = 652) CALCIUM (BEAKER) 8.5 mg/dL 8.4-10.2 (test code = 697) AST (SGOT) (BEAKER) 16 U/L 5-34 (test code = 353) ALT (SGPT) (BEAKER) 13 U/L 6-55 (test code = 347) EGFR (BEAKER) (test 11 mL/min/1.73 ESTIMA FRANKLIN GFR IS code = 1092) sq m NOT ACCURATE CREATININE CLEARANCE IN PREDICTING GLOMERULAR FILTRATION RATE . ESTIMATED GFR I S NOT APPLICABLE FOR DIALYSIS PATIEN TS. Administrative Aide ID - KEVIN MCBC W/PLT COUNT & AUTO [id number] 05:12:30 Test Item Value Reference Range Interpretation Comments WHITE BLOOD CELL COUNT (BEAKER) 4.2 K/ L 3.5-10.5 (test code = 775) RED BLOOD CELL COUNT (BEAKER) 4.04 M/ L 4.63-6.08 L (test code = 761) HEMOGLOBIN (BEAKER) (test code = 12.1 GM/DL 13.7-17.5 L 410) HEMATOCRIT (BEAKER) (test code = 39.5 % 40.1-51.0 L 411) MEAN CORPUSCULAR VOLUME (BEAKER) 97.8 fL 79.0-92.2 H (test code = 753) MEAN CORPUSCULAR HEMOGLOBIN 30.0 pg 25.7-32.2 (BEAKER) (test code = 751) MEAN CORPUSCULAR HEMOGLOBIN CONC 30.6 GM/DL 32.3-36.5 L (BEAKER) (test code = 752) RED CELL DISTRIBUTION WIDTH 13.5 % 11.6-14.4 (BEAKER) (test code = 412) PLATELET COUNT (BEAKER) (test 201 K/CU MM 150-450 code = 756) MEAN PLATELET VOLUME (BEAKER) 9.7 fL 9.4-12.4 (test code = 754) NUCLEATED RED BLOOD CELLS 0 /100 WBC 0-0 (BEAKER) (test code = 413) NEUTROPHILS RELATIVE PERCENT 47 % (BEAKER) (test code = 429) LYMPHOCYTES RELATIVE PERCENT 39 % (BEAKER) (test code = 430) MONOCYTES RELATIVE PERCENT 10 % (BEAKER) (test code = 431) EOSINOPHILS RELATIVE PERCENT 4 % (BEAKER) (test code = 432) BASOPHILS RELATIVE PERCENT 1 % (BEAKER) (test code = 437) NEUTROPHILS ABSOLUTE COUNT 1.93 K/ L 1.78-5.38 (BEAKER) (test code = 670) LYMPHOCYTES ABSOLUTE COUNT 1.61 K/ L 1.32-3.57 (BEAKER) (test code = 414) MONOCYTES ABSOLUTE COUNT (BEAKER) 0.40 K/ L 0.30-0.82 (test code = 415) EOSINOPHILS ABSOLUTE COUNT 0.16 K/ L 0.04-0.54 (BEAKER) (test code = 416) BASOPHILS ABSOLUTE COUNT (BEAKER) 0.04 K/ L 0.01-0.08 (test code = 417) IMMATURE GRANULOCYTES-RELATIVE 0 % 0-1 PERCENT (BEAKER) (test code = 2801) POCT-GLUCOSE [id number] 21:58:35 Test Item Value Reference Range Interpretation Comments POC-GLUCOSE METER 93 mg/dL 70-110 : TESTED A T [facility] 6720 (BEAKER) (test code = BRENDA Prieto [facility], 1538) 61200: Administrative Aide/Techni glenis ID = [id number] for GUALBERTO MEYER POCT-GLUCOSE [id number] 21:05:08 Test Item Value Reference Range Interpretation Comments POC-GLUCOSE METER 60 mg/dL 70-110 L : Notified RN/MD: TESTED (BEAKER) (test code = AT [facility] [address] [facility] 1538) [facility], 770 30: Administrative Aide/Techni glenis ID = [id number] for MOON MCADAMS BASIC METABOLIC [id number] 19:13:32 Test Item Value Reference Range Interpretation Comments SODIUM (BEAKER) 142 meq/L 136-145 (test code = 381) POTASSIUM (BEAKER) 3.7 meq/L 3.5-5.1 (test code = 379) CHLORIDE (BEAKER) 97 meq/L 98-107 L (test code = 382) CO2 (BEAKER) (test 30 meq/L 22-29 H code = 355) BLOOD UREA NITROGEN 23 mg/dL 7-21 H (BEAKER) (test code = 354) CREATININE (BEAKER) 3.75 mg/dL 0.57-1.25 H (test code = 358) GLUCOSE RANDOM 72 mg/dL 70-105 (BEAKER) (test code = 652) CALCIUM (BEAKER) 8.8 mg/dL 8.4-10.2 (test code = 697) EGFR (BEAKER) (test 17 mL/min/1.73 ESTIMA FRANKLIN GFR IS code = 1092) sq m NOT ACCURATE CREATININE CLEARANCE IN PREDICTING GLOMERULAR FILTRATION RATE . ESTIMATED GFR I S NOT APPLICABLE FOR DIALYSIS PATIEN TS. Administrative Aide ID - BSHEPATITIS B SURFACE [id number] 17:23:26 Test Item Value Reference Range Interpretation Comments HEPATITIS B SURFACE ANTIGEN (2) Nonreactive Nonreactive (BEAKER) (test code = 2585) Specimen is considered negative for HBsAg.SARS-COV2/RT-PCR ([facility]) 2021-10-01 14:24:18 Test Item Value Reference Range Interpretation Comments SARS-COV2/RT-PCR Negative Negative The SARS-Co V-2 target (test code = nucleic acids a re not [id number]) detected in thi s specimen. Negative result [...] revoked sooner. Fact Sheet for Healthcare Providers: https://www.[employer]/Documents/Xpert%20Xpress%20SARS%20CoV-2/Fact%20Sheets/512-6242%20SARS-COV -2%20HEALTHCARE%20PROVIDERS%20FACT%20SHEET.pdf Fact Sheet for Healthcare Patients: https://www.[employer]/Documents/Xpert %20Xpress%20SARS%20CoV-2/Fact%20Sheets/302-1081%94MKVU-CRU-5%20PATIENT%20FACT%20 SHEET.pdfPOCT-GLUCOSE [id number] 12:44:22 Test Item Value Reference Range Interpretation Comments POC-GLUCOSE METER 126 mg/dL 70-110 H : TESTED A T [facility] 6720 (BEAKER) (test code = BRENDA RAMIRE[place], 1538) [address]: Administrative Aide/Techni glenis ID = [id number] for LORETO MARQUEZ [facility] METABOLIC [id number] 12:42:54 Test Item Value Reference Range Interpretation Comments SODIUM (BEAKER) 137 meq/L 136-145 (test code = 381) POTASSIUM (BEAKER) 7.3 meq/L 3.5-5.1 HH (test code = 379) CHLORIDE (BEAKER) 101 meq/L 98-107 (test code = 382) CO2 (BEAKER) (test 19 meq/L 22-29 L code = 355) BLOOD UREA NITROGEN 65 mg/dL 7-21 H (BEAKER) (test code = 354) CREATININE (BEAKER) 8.85 mg/dL 0.57-1.25 H (test code = 358) GLUCOSE RANDOM 119 mg/dL 70-105 H (BEAKER) (test code = 652) CALCIUM (BEAKER) 9.2 mg/dL 8.4-10.2 (test code = 697) EGFR (BEAKER) (test 6 mL/min/1.73 ESTIMAT ED GFR IS code = 1092) sq m NOT ACCURATE CREATININE CLEARANCE IN PREDICTING GLOMERULAR FILTRATION RATE . ESTIMATED GFR I S NOT APPLICABLE FOR DIALYSIS PATIEN TS. Administrative Aide ID - BRIANDA [facility] METABOLIC [id number] 07:57:08 Test Item Value Reference Range Interpretation Comments SODIUM (BEAKER) 137 meq/L 136-145 (test code = 381) POTASSIUM (BEAKER) 7.3 meq/L 3.5-5.1 HH (test code = 379) CHLORIDE (BEAKER) 100 meq/L 98-107 (test code = 382) CO2 (BEAKER) (test 19 meq/L 22-29 L code = 355) BLOOD UREA NITROGEN 66 mg/dL 7-21 H (BEAKER) (test code = 354) CREATININE (BEAKER) 9.02 mg/dL 0.57-1.25 H (test code = 358) GLUCOSE RANDOM 94 mg/dL 70-105 (BEAKER) (test code = 652) CALCIUM (BEAKER) 9.1 mg/dL 8.4-10.2 (test code = 697) EGFR (BEAKER) (test 6 mL/min/1.73 ESTIMAT ED GFR IS code = 1092) sq m NOT ACCURATE CREATININE CLEARANCE IN PREDICTING GLOMERULAR FILTRATION RATE . ESTIMATED GFR I S NOT APPLICABLE FOR DIALYSIS PATIEN TS. Administrative Aide ID - BSCBC W/PLT COUNT & AUTO [id number] 07:33:31 Test Item Value Reference Range Interpretation Comments WHITE BLOOD CELL COUNT (BEAKER) 7.7 K/ L 3.5-10.5 (test code = 775) RED BLOOD CELL COUNT (BEAKER) 4.41 M/ L 4.63-6.08 L (test code = 761) HEMOGLOBIN (BEAKER) (test code = 13.1 GM/DL 13.7-17.5 L 410) HEMATOCRIT (BEAKER) (test code = 43.9 % 40.1-51.0 411) MEAN CORPUSCULAR VOLUME (BEAKER) 99.5 fL 79.0-92.2 H (test code = 753) [...] (test code = 413) NEUTROPHILS RELATIVE PERCENT 58 % (BEAKER) (test code = 429) LYMPHOCYTES RELATIVE PERCENT 29 % (BEAKER) (test code = 430) MONOCYTES RELATIVE PERCENT 8 % (BEAKER) (test code = 431) EOSINOPHILS RELATIVE PERCENT 4 % (BEAKER) (test code = 432) BASOPHILS RELATIVE PERCENT 1 % (BEAKER) (test code = 437) NEUTROPHILS ABSOLUTE COUNT 4.46 K/ L 1.78-5.38 (BEAKER) (test code = 670) LYMPHOCYTES ABSOLUTE COUNT 2.27 K/ L 1.32-3.57 (BEAKER) (test code = 414) MONOCYTES ABSOLUTE COUNT (BEAKER) 0.61 K/ L 0.30-0.82 (test code = 415) EOSINOPHILS ABSOLUTE COUNT 0.31 K/ L 0.04-0.54 (BEAKER) (test code = 416) BASOPHILS ABSOLUTE COUNT (BEAKER) 0.06 K/ L 0.01-0.08 (test code = 417) IMMATURE GRANULOCYTES-RELATIVE 0 % 0-1 PERCENT (BEAKER) (test code = 2801) [id number] 07:32:54 Test Item Value Reference Range Interpretation Comments PARTIAL THROMBOPLASTIN TIME 28.0 seconds 22.5-36.0 (BEAKER) (test code = 760) PROTHROMBIN TIME/[id number] 07:32:16 Test Item Value Reference Range Interpretation Comments PROTIME (BEAKER) 12.8 seconds 11.9-14.2 (test code = 759) INR (BEAKER) (test 0.98 See_Comment [Automat ed message] code = 370) The system [employer] generated this result transmitted ref erence range: <=5.90. The reference range was not used to int erpret this result as normal/abnormal . RECOMMENDED COUMADIN/WARFARIN INR THERAPY RANGESSTANDARD DOSE: 2.0 - 3.0 Includes: PROPHYLAXIS forvenous thrombosis, systemic embolization; TREATMENT for venous thrombosis and/or pulmonary embolus.HIGH RISK: Target INR is 2.5-3.5 for patients with mechanical heart valves.POCT-GLUCOSE [id number] 12:50:06 Test Item Value Reference Range Interpretation Comments POC-GLUCOSE METER 81 mg/dL 70-110 : TESTED A T [facility] 6720 (BEAKER) (test code = JAKELESIA RAMIRE[place], 1538) [address]: Administrative Aide/Techni glenis ID = [id number] for DALLAS JUAREZ BASIC METABOLIC [id number] 05:21:19 Test Item Value Reference Range Interpretation Comments SODIUM (BEAKER) 136 meq/L 136-145 (test code = 381) POTASSIUM (BEAKER) 5.5 meq/L 3.5-5.1 H (test code = 379) CHLORIDE (BEAKER) 100 meq/L 98-107 (test code = 382) CO2 (BEAKER) (test 28 meq/L 22-29 code = 355) BLOOD UREA NITROGEN 30 mg/dL 7-21 H (BEAKER) (test code = 354) CREATININE (BEAKER) 5.33 mg/dL 0.57-1.25 H (test code = 358) GLUCOSE RANDOM 91 mg/dL 70-105 (BEAKER) (test code = 652) CALCIUM (BEAKER) 9.7 mg/dL 8.4-10.2 (test code = 697) EGFR (BEAKER) (test 11 mL/min/1.73 ESTIMA FRANKLIN GFR IS code = 1092) sq m NOT ACCURATE CREATININE CLEARANCE IN PREDICTING GLOMERULAR FILTRATION RATE . ESTIMATED GFR I S NOT APPLICABLE FOR DIALYSIS PATIEN TS. Administrative Aide ID - KEVIN [id number] 05:13:33 Test Item Value Reference Range Interpretation Comments MAGNESIUM (BEAKER) (test code = 2.3 mg/dL 1.6-2.6 627) Administrative Aide ID - KEVIN [id number] 05:13:33 Test Item Value Reference Range Interpretation Comments PHOSPHORUS (BEAKER) (test code = 3.9 mg/dL 2.3-4.7 604) Administrative Aide ID - KEVIN MCBC W/PLT COUNT & AUTO [id number] 04:33:53 Test Item Value Reference Range Interpretation Comments WHITE BLOOD CELL COUNT (BEAKER) 7.4 K/ L 3.5-10.5 (test code = 775) RED BLOOD CELL COUNT (BEAKER) 3.91 M/ L 4.63-6.08 L (test code = 761) HEMOGLOBIN (BEAKER) (test code = 11.8 GM/DL 13.7-17.5 L 410) HEMATOCRIT (BEAKER) (test code = 39.9 % 40.1-51.0 L 411) MEAN CORPUSCULAR VOLUME (BEAKER) 102.0 fL 79.0-92.2 H (test code = 753) MEAN CORPUSCULAR HEMOGLOBIN 30.2 pg 25.7-32.2 (BEAKER) (test code = 751) MEAN CORPUSCULAR HEMOGLOBIN CONC 29.6 GM/DL 32.3-36.5 L (BEAKER) (test code = 752) RED CELL DISTRIBUTION WIDTH 13.9 % 11.6-14.4 (BEAKER) (test code = 412) PLATELET COUNT (BEAKER) (test 320 K/CU MM 150-450 code = 756) MEAN [...] (test code = 437) NEUTROPHILS ABSOLUTE COUNT 5.10 K/ L 1.78-5.38 (BEAKER) (test code = [...] PERCENT (BEAKER) (test code = 2801) POCT-GLUCOSE [id number] 20:48:04 Test Item Value Reference Range Interpretation Comments POC-GLUCOSE METER 140 mg/dL 70-110 H : TESTED A T [facility] 6720 (BEAKER) (test code = [facility]) [address]: Administrative Aide/Techni glenis ID = [id number] for MIKE LJNishant, MYA POCT-GLUCOSE [id number] 17:26:49 Test Item Value Reference Range Interpretation Comments POC-GLUCOSE METER 120 mg/dL 70-110 H : TESTED A T [facility] 6720 (BEAKER) (test code = [facility], 1538) [address]: Administrative Aide/Techni glenis ID = [id number] for SUKHWINDEROWENJASVIRCOLLIN CABRERACY POCT-GLUCOSE [id number] 12:28:37 Test Item Value Reference Range Interpretation Comments POC-GLUCOSE METER 122 mg/dL 70-110 H : TESTED A T [facility] 6720 (BEAKER) (test code = [facility], 1538) [address]: Administrative Aide/Techni glenis ID = [id number] for KEVIN HUTCHINS CBC W/PLT COUNT & AUTO [id number] 12:16:36 Test Item Value Reference Range Interpretation Comments WHITE BLOOD CELL COUNT (BEAKER) 6.3 K/ L 3.5-10.5 (test code = 775) RED BLOOD CELL COUNT (BEAKER) 3.49 M/ L 4.63-6.08 L (test code = 761) HEMOGLOBIN (BEAKER) (test code = 10.6 GM/DL 13.7-17.5 L 410) HEMATOCRIT (BEAKER) (test code = 36.3 % 40.1-51.0 L 411) MEAN CORPUSCULAR VOLUME (BEAKER) 104.0 fL 79.0-92.2 H (test code = 753) MEAN CORPUSCULAR HEMOGLOBIN 30.4 pg 25.7-32.2 (BEAKER) (test code = 751) MEAN CORPUSCULAR HEMOGLOBIN CONC 29.2 GM/DL 32.3-36.5 L (BEAKER) (test code = 752) RED CELL DISTRIBUTION WIDTH 14.3 % 11.6-14.4 (BEAKER) (test code = 412) PLATELET COUNT (BEAKER) (test 302 K/CU MM 150-450 code = 756) MEAN PLATELET VOLUME (BEAKER) 9.3 fL 9.4-12.4 L (test code = 754) NUCLEATED RED BLOOD CELLS 0 /100 WBC 0-0 (BEAKER) (test code = 413) NEUTROPHILS RELATIVE PERCENT 73 % (BEAKER) (test code = 429) LYMPHOCYTES RELATIVE PERCENT 16 % (BEAKER) (test code = 430) MONOCYTES RELATIVE PERCENT 9 % (BEAKER) (test code = 431) EOSINOPHILS RELATIVE PERCENT 2 % (BEAKER) (test code = 432) BASOPHILS RELATIVE PERCENT 1 % (BEAKER) (test code = 437) NEUTROPHILS ABSOLUTE COUNT 4.60 K/ L 1.78-5.38 (BEAKER) (test code = 670) LYMPHOCYTES ABSOLUTE COUNT 0.98 K/ L 1.32-3.57 L (BEAKER) (test code = 414) MONOCYTES ABSOLUTE COUNT (BEAKER) 0.54 K/ L 0.30-0.82 (test code = 415) EOSINOPHILS ABSOLUTE COUNT 0.14 K/ L 0.04-0.54 (BEAKER) (test code = 416) BASOPHILS ABSOLUTE COUNT (AKER) 0.05 K/ L 0.01-0.08 (test code = 417) IMMATURE GRANULOCYTES-RELATIVE 0 % 0-1 PERCENT (BEAKER) (test code = 2801) POCT-GLUCOSE [id number] 07:50:19 Test Item Value Reference Range Interpretation Comments POC-GLUCOSE METER 102 mg/dL 70-110 : TESTED A T [facility] (test code = [facility], 1538) 34540: Administrative Aide/Techni glenis ID = [id number] for KIZHAKEKATTIL, KEVIN POCT-GLUCOSE [id number] 21:14:01 Test Item Value Reference Range Interpretation Comments POC-GLUCOSE METER 137 mg/dL 70-110 H : TESTED A T [facility] (BEAKER) (test code = [facility], 1538) 65463: Administrative Aide/Techni glenis ID = [id number] for Sabrina Lechuga POCT-GLUCOSE [id number] 17:23:42 Test Item Value Reference Range Interpretation Comments POC-GLUCOSE METER 96 mg/dL 70-110 : TESTED A T [facility] ([facility] (test code = [facility], 1538) 32463: Administrative Aide/Techni glenis ID = [id number] for KIZHAKEKATTIL, KEVIN POCT-GLUCOSE [id number] 12:03:39 Test Item Value Reference Range Interpretation Comments POC-GLUCOSE METER 73 mg/dL 70-110 : TESTED A T [facility] ([facility] (test code = [facility], 1538) 68461: Administrative Aide/Techni glenis ID = [id number] for KIZHAKEKATTIL, KEVIN POCT-GLUCOSE [id number] 10:15:41 Test Item Value Reference Range Interpretation Comments POC-GLUCOSE METER 82 mg/dL 70-110 : TESTED A T [facility] (BEAKER) (test code = [facility], 1538) 76145: Administrative Aide/Techni glenis ID = [id number] for Ethel Yeager BASIC METABOLIC [id number] 08:56:49 Test Item Value Reference Range Interpretation Comments SODIUM (BEAKER) 130 meq/L 136-145 L (test code = 381) POTASSIUM (BEAKER) 5.4 meq/L 3.5-5.1 H (test code = 379) CHLORIDE (BEAKER) 97 meq/L 98-107 L (test code = 382) CO2 (BEAKER) (test 27 meq/L 22-29 code = 355) BLOOD UREA NITROGEN 35 mg/dL 7-21 H (BEAKER) (test code = 354) CREATININE (BEAKER) 6.11 mg/dL 0.57-1.25 H (test code = 358) GLUCOSE RANDOM 88 mg/dL 70-105 (BEAKER) (test code = 652) CALCIUM (BEAKER) 10.0 mg/dL 8.4-10.2 (test code = 697) EGFR (BEAKER) (test 10 mL/min/1.73 ESTIMA FRANKLIN GFR IS code = 1092) sq m NOT ACCURATE CREATININE CLEARANCE IN PREDICTING GLOMERULAR FILTRATION RATE . ESTIMATED GFR I S NOT APPLICABLE FOR DIALYSIS PATIEN TS. Administrative Aide ID - [id number] 08:39:55 Test Item Value Reference Range Interpretation Comments MAGNESIUM (BEAKER) (test code = 2.3 mg/dL 1.6-2.6 627) Administrative Aide ID - DBCBC W/PLT COUNT & AUTO [id number] 08:17:31 Test Item Value Reference Range Interpretation Comments WHITE BLOOD CELL COUNT (BEAKER) 7.3 K/ L 3.5-10.5 (test code = 775) RED BLOOD CELL COUNT (BEAKER) 3.56 M/ L 4.63-6.08 L (test code = 761) HEMOGLOBIN (BEAKER) (test code = 10.6 GM/DL 13.7-17.5 L 410) HEMATOCRIT (BEAKER) (test code = 35.5 % 40.1-51.0 L 411) MEAN CORPUSCULAR VOLUME (BEAKER) 99.7 fL 79.0-92.2 H (test code = 753) MEAN CORPUSCULAR HEMOGLOBIN 29.8 pg 25.7-32.2 (BEAKER) (test code = 751) MEAN CORPUSCULAR HEMOGLOBIN CONC 29.9 GM/DL 32.3-36.5 L (BEAKER) (test code = 752) RED CELL DISTRIBUTION WIDTH 13.8 % 11.6-14.4 (BEAKER) (test code = 412) PLATELET COUNT (BEAKER) (test 318 K/CU MM 150-450 code = 756) MEAN [...] (test code = 437) NEUTROPHILS ABSOLUTE COUNT 5.20 K/ L 1.78-5.38 (BEAKER) (test code = 670) LYMPHOCYTES ABSOLUTE COUNT 1.01 K/ L 1.32-3.57 L (BEAKER) (test code = 414) MONOCYTES ABSOLUTE COUNT (BEAKER) 0.83 K/ L 0.30-0.82 H (test code = 415) EOSINOPHILS ABSOLUTE COUNT 0.20 K/ L 0.04-0.54 (BEAKER) (test code = 416) BASOPHILS ABSOLUTE COUNT (BEAKER) 0.04 K/ L 0.01-0.08 (test code = 417) IMMATURE GRANULOCYTES-RELATIVE 0 % 0-1 PERCENT (BEAKER) (test code = 2801) SARS-COV2/RT-PCR ([facility])2021-07-08 06:59:59 Test Item Value Reference Range Interpretation Comments SARS-COV2/RT-PCR Negative Negative The SARS-Co V-2 target (test code = nucleic acids a re not [id number]) detected in thi s specimen. Negative result [...] revoked sooner. Fact Sheet for Healthcare Providers: https://[email or web address]%[email or web address]%20CoV-[email or web address]/Fact%20Sheets/302-3802%20SARS-COV -2%20HEALTHCARE%20PROVIDERS%20FACT%20SHEET.pdf Fact Sheet for Healthcare Patients: [email or web address] %20Xpress%20SARS%20CoV-2/Fact%20Sheets/302-3801%36JSAG-GHI-1%20PATIENT%20FACT%20 SHEET.pdfPOCT-GLUCOSE [id number] 21:26:12 Test Item Value Reference Range Interpretation Comments POC-GLUCOSE METER 133 mg/dL 70-110 H : TESTED A T [facility] 6720 (BEAKER) (test code = BRENDA Prieto [facility], 1538) 94768: Administrative Aide/Techni glenis ID = [id number] for Co Charisse canales RESPIRATORY PANEL [id number] 19:49:19 Test Item Value Reference Range Interpretation Comments HUMAN METAPNEUMOVIRUS Not detected Not detected, (BEAKER) (test code = 2683) Equivocal RHINOVIRUS (BEAKER) (test Not detected Not detected, code = 2684) Equivocal INFLUENZA A (BEAKER) (test Not detected Not detected, code = 2685) Equivocal INFLUENZA A (NO SUBTYPE) (test code = 3606) INFLUENZA A SUBTYPE H1 (BEAKER) (test code = 2686) INFLUENZA A SUBTYPE H3 (BEAKER) (test code = 2687) INFLUENZA A SUBTYPE H1-2009 (BEAKER) (test code = 3198) INFLUENZA B (BEAKER) (test Not detected Not detected, code = 8418) Equivocal RESPIRATORY SYNCYTIAL VIRUS Not detected Not detected, (BEAKER) (test code = 3199) Equivocal PARAINFLUENZA VIRUS 1 Not detected Not detected, (BEAKER) (test code = 2691) Equivocal PARAINFLUENZA VIRUS 2 Not detected Not detected, (BEAKER) (test code = 2692) Equivocal PARAINFLUENZA VIRUS 3 Not detected Not detected, (BEAKER) (test code = 2693) Equivocal PARAINFLUENZA VIRUS 4 Not detected Not detected, (BEAKER) (test code = 3200) Equivocal ADENOVIRUS (BEAKER) (test Not detected Not detected, code = 2694) Equivocal CORONAVIRUS 229E (BEAKER) Not detected Not detected, (test code = 3201) Equivocal CORONAVIRUS HKU1 (BEAKER) Not detected Not detected, (test code = 3202) Equivocal CORONAVIRUS NL63 (BEAKER) Not detected Not detected, (test code = 3203) Equivocal CORONAVIRUS OC43 (BEAKER) Not detected Not detected, (test code = 3204) Equivocal BORDETELLA PERTUSSIS Not detected Not detected, (BEAKER) (test code = 3205) Equivocal CHLAMYDOPHILA PNEUMONIAE Not detected Not detected, (BEAKER) (test code = 3206) Equivocal MYCOPLASMA PNEUMONIAE Not detected Not detected, (BEAKER) (test code = 3207) Equivocal Other viruses and bacteria not targeted by this PCR panel cannot be excluded; therefore clinical correlation and follow up of serology, culture results, and other molecular studies is required. The results are not intended to be used as the sole means for clinical diagnosis or patient management decisions. This sample was tested at the [facility] Molecular Diagnostics Laboratory using the [employer] Respiratory Panel. It is FDA cleared and has been verified and approved by the [facility] Molecular Diagnostics Laboratory for clinical use on nasopharyngeal swab specimens.The performance of the FilmArrayRP has not been established in individuals who received influenza vaccine. Recent administration ofa nasal influenza vaccine may cause false positive results for Influenza A and/orInfluenza B.POCT-GLUCOSE [id number] 17:52:21 Test Item Value Reference Range Interpretation Comments POC-GLUCOSE METER 116 mg/dL 70-110 H : TESTED A T [facility] 6720 ([employer]) (test code = BRENDA ELLER, 1538) 10221: Administrative Aide/Techni glenis ID = [id number] for Kellie Fletcher POCT-GLUCOSE [id number] 12:51:12 Test Item Value Reference Range Interpretation Comments POC-GLUCOSE METER 104 mg/dL 70-110 : TESTED A T [facility] 6720 (BEAKER) (test code = [facility], 1538) 93001: Administrative Aide/Techni glenis ID = [id number] for Kellie Fletcher POCT-GLUCOSE [id number] 08:53:47 Test Item Value Reference Range Interpretation Comments POC-GLUCOSE METER 139 mg/dL 70-110 H : TESTED A T [facility] 6720 (BEAKER) (test code = [facility], 1538) 74475: Administrative Aide/Techni glenis ID = [id number] for Kellie Fletcher BASIC METABOLIC [id number] 06:03:20 Test Item Value Reference Range Interpretation Comments SODIUM (BEAKER) 133 meq/L 136-145 L (test code = 381) POTASSIUM (BEAKER) 4.9 meq/L 3.5-5.1 (test code = 379) CHLORIDE (BEAKER) 99 meq/L 98-107 (test code = 382) CO2 (BEAKER) (test 25 meq/L 22-29 code = 355) BLOOD UREA NITROGEN 25 mg/dL 7-21 H (BEAKER) (test code = 354) CREATININE (BEAKER) 5.03 mg/dL 0.57-1.25 H (test code = 358) GLUCOSE RANDOM 111 mg/dL 70-105 H (BEAKER) (test code = 652) CALCIUM (BEAKER) 9.9 mg/dL 8.4-10.2 (test code = 697) EGFR (BEAKER) (test 12 mL/min/1.73 ESTIMA FRANKLIN GFR IS code = 1092) sq m NOT ACCURATE CREATININE CLEARANCE IN PREDICTING GLOMERULAR FILTRATION RATE . ESTIMATED GFR I S NOT APPLICABLE FOR DIALYSIS PATIEN TS. Administrative Aide ID - [id number] 06:02:32 Test Item Value Reference Range Interpretation Comments MAGNESIUM (BEAKER) (test code = 2.2 mg/dL 1.6-2.6 627) Administrative Aide ID - DBCBC W/PLT COUNT & AUTO [id number] 05:22:50 Test Item Value Reference Range Interpretation Comments WHITE BLOOD CELL COUNT (BEAKER) 7.1 K/ L 3.5-10.5 (test code = 775) RED BLOOD CELL COUNT (BEAKER) 3.71 M/ L 4.63-6.08 L (test code = 761) HEMOGLOBIN (BEAKER) (test code = 11.3 GM/DL 13.7-17.5 L 410) HEMATOCRIT (BEAKER) (test code = 38.2 % 40.1-51.0 L 411) MEAN CORPUSCULAR VOLUME (BEAKER) 103.0 fL 79.0-92.2 H (test code = 753) MEAN CORPUSCULAR HEMOGLOBIN 30.5 pg 25.7-32.2 (BEAKER) (test code = 751) MEAN CORPUSCULAR HEMOGLOBIN CONC 29.6 GM/DL 32.3-36.5 L (BEAKER) (test code = 752) RED CELL DISTRIBUTION WIDTH 14.0 % 11.6-14.4 (BEAKER) (test code = 412) PLATELET COUNT (BEAKER) (test 299 K/CU MM 150-450 code = 756) MEAN [...] (test code = 437) NEUTROPHILS ABSOLUTE COUNT 5.17 K/ L 1.78-5.38 (BEAKER) (test code = 670) LYMPHOCYTES ABSOLUTE COUNT 1.01 K/ L 1.32-3.57 L (BEAKER) (test code = 414) MONOCYTES ABSOLUTE COUNT (BEAKER) 0.72 K/ L 0.30-0.82 (test code = 415) EOSINOPHILS ABSOLUTE COUNT 0.17 K/ L 0.04-0.54 (BEAKER) (test code = 416) BASOPHILS ABSOLUTE COUNT (BEAKER) 0.04 K/ L 0.01-0.08 (test code = 417) IMMATURE GRANULOCYTES-RELATIVE 0 % 0-1 PERCENT (BEAKER) (test code = 2801) POCT-GLUCOSE [id number] 20:51:16 Test Item Value Reference Range Interpretation Comments POC-GLUCOSE METER 129 mg/dL 70-110 H : TESTED A T [facility] 6720 (BEAKER) (test code = [facility], [facility]8) 80157: Administrative Aide/Techni glenis ID = [id number] for Co rtez, [place] POCT-GLUCOSE [id number] 17:44:41 Test Item Value Reference Range Interpretation Comments POC-GLUCOSE METER 127 mg/dL 70-110 H : TESTED A T [facility] 6720 (BEAKER) (test code = [facility], [facility]8) 17138: Administrative Aide/Techni glenis ID = [id number] for Ba rrera, Kellie POCT-GLUCOSE [id number] 12:46:42 Test Item Value Reference Range Interpretation Comments POC-GLUCOSE METER 99 mg/dL 70-110 : TESTED A T [facility] 6720 (BEAKER) (test code = [facility], [facility]8) 56901: Administrative Aide/Techni glenis ID = [id number] for Elizabeth era, Kellie POCT-GLUCOSE [id number] 08:44:09 Test Item Value Reference Range Interpretation Comments POC-GLUCOSE METER 107 mg/dL 70-110 : TESTED A T [facility] 6720 (BEAKER) (test code = [facility], [facility]8) 89610: Administrative Aide/Techni glenis ID = [id number] for Ba rrera, Kellie BASIC METABOLIC [id number] 05:56:46 Test Item Value Reference Range Interpretation Comments SODIUM (BEAKER) 137 meq/L 136-145 (test code = 381) POTASSIUM (BEAKER) 4.5 meq/L 3.5-5.1 (test code = 379) CHLORIDE (BEAKER) 100 meq/L 98-107 (test code = 382) CO2 (BEAKER) (test 29 meq/L 22-29 code = 355) BLOOD UREA NITROGEN 17 mg/dL 7-21 (BEAKER) (test code = 354) CREATININE (BEAKER) 3.86 mg/dL 0.57-1.25 H (test code = 358) GLUCOSE RANDOM 109 mg/dL 70-105 H (BEAKER) (test code = 652) CALCIUM (BEAKER) 9.6 mg/dL 8.4-10.2 (test code = 697) EGFR (BEAKER) (test 16 mL/min/1.73 ESTIMA FRANKLIN GFR IS code = 1092) sq m NOT ACCURATE CREATININE CLEARANCE IN PREDICTING GLOMERULAR FILTRATION RATE . ESTIMATED GFR I S NOT APPLICABLE FOR DIALYSIS PATIEN TS. Administrative Aide ID - KEVIN [id number] 05:51:41 Test Item Value Reference Range Interpretation Comments MAGNESIUM (BEAKER) (test code = 2.0 mg/dL 1.6-2.6 627) Administrative Aide ID - KEVIN MCBC W/PLT COUNT & AUTO [id number] 05:31:16 Test Item Value Reference Range Interpretation Comments WHITE BLOOD CELL COUNT (BEAKER) 6.9 K/ L 3.5-10.5 (test code = 775) RED BLOOD CELL COUNT (BEAKER) 3.84 M/ L 4.63-6.08 L (test code = 761) HEMOGLOBIN (BEAKER) (test code = 11.5 GM/DL 13.7-17.5 L 410) HEMATOCRIT (BEAKER) (test code = 39.9 % 40.1-51.0 L 411) MEAN CORPUSCULAR VOLUME (BEAKER) 103.9 fL 79.0-92.2 H (test code = 753) MEAN CORPUSCULAR HEMOGLOBIN 29.9 pg 25.7-32.2 (BEAKER) (test code = 751) MEAN CORPUSCULAR HEMOGLOBIN CONC 28.8 GM/DL 32.3-36.5 L (BEAKER) (test code = 752) RED CELL DISTRIBUTION WIDTH 14.2 % 11.6-14.4 (BEAKER) (test code = 412) PLATELET COUNT (BEAKER) (test 323 K/CU MM 150-450 code = 756) MEAN [...] PERCENT (BEAKER) (test code = 2801) POCT-GLUCOSE [id number] 20:56:20 Test Item Value Reference Range Interpretation Comments POC-GLUCOSE METER 119 mg/dL 70-110 H : TESTED A T [facility] 6720 (BEAKER) (test code = [facility], [facility]) 16658: Administrative Aide/Techni glenis ID = [id number] for Co rtez, Charisse POCT-GLUCOSE [id number] 17:44:04 Test Item Value Reference Range Interpretation Comments POC-GLUCOSE METER 127 mg/dL 70-110 H : TESTED A T [facility] 6720 (BEAKER) (test code = [facility], [facility]) 70415: Administrative Aide/Techni glenis ID = [id number] for Ba rrera, Kellie POCT-GLUCOSE [id number] 11:51:50 Test Item Value Reference Range Interpretation Comments POC-GLUCOSE METER 116 mg/dL 70-110 H : TESTED A T [facility] 6720 (BEAKER) (test code = [facility], 153) 89420: Administrative Aide/Techni glenis ID = [id number] for Ba rrera, Kellie POCT-GLUCOSE [id number] 10:05:43 Test Item Value Reference Range Interpretation Comments POC-GLUCOSE METER 99 mg/dL 70-110 : TESTED A T [facility] 6720 (BEAKER) (test code = [facility], 1538) 96557: Administrative Aide/Techni glenis ID = [id number] for Lashawn Carcamo [id number] 08:26:37 Test Item Value Reference Range Interpretation Comments PHOSPHORUS (BEAKER) (test code = 4.5 mg/dL 2.3-4.7 604) Administrative Aide ID - DBBASIC METABOLIC [id number] 06:14:50 Test Item Value Reference Range Interpretation Comments SODIUM (BEAKER) 138 meq/L 136-145 (test code = 381) POTASSIUM (BEAKER) 5.0 meq/L 3.5-5.1 (test code = 379) CHLORIDE (BEAKER) 104 meq/L 98-107 (test code = 382) CO2 (BEAKER) (test 24 meq/L 22-29 code = 355) BLOOD UREA NITROGEN 25 mg/dL 7-21 H (BEAKER) (test code = 354) CREATININE (BEAKER) 5.11 mg/dL 0.57-1.25 H (test code = 358) GLUCOSE RANDOM 109 mg/dL 70-105 H (BEAKER) (test code = 652) CALCIUM (BEAKER) 9.6 mg/dL 8.4-10.2 (test code = 697) EGFR (BEAKER) (test 12 mL/min/1.73 ESTIMA FRANKLIN GFR IS code = 1092) sq m NOT ACCURATE CREATININE CLEARANCE IN PREDICTING GLOMERULAR FILTRATION RATE . ESTIMATED GFR I S NOT APPLICABLE FOR DIALYSIS PATIEN TS. Administrative Aide ID - [id number] 06:13:51 Test Item Value Reference Range Interpretation Comments MAGNESIUM (BEAKER) (test code = 2.2 mg/dL 1.6-2.6 627) Administrative Aide ID - DBCBC W/PLT COUNT & AUTO [id number] 06:13:45 Test Item Value Reference Range Interpretation Comments WHITE BLOOD CELL COUNT (BEAKER) 6.6 K/ L 3.5-10.5 (test code = 775) RED BLOOD CELL COUNT (BEAKER) 3.70 M/ L 4.63-6.08 L (test code = 761) HEMOGLOBIN (BEAKER) (test code = 11.3 GM/DL 13.7-17.5 L 410) HEMATOCRIT (BEAKER) (test code = 38.4 % 40.1-51.0 L 411) MEAN CORPUSCULAR VOLUME (BEAKER) 103.8 fL 79.0-92.2 H (test code = 753) MEAN CORPUSCULAR HEMOGLOBIN 30.5 pg 25.7-32.2 (BEAKER) (test code = 751) MEAN CORPUSCULAR HEMOGLOBIN CONC 29.4 GM/DL 32.3-36.5 L (BEAKER) (test code = 752) RED CELL DISTRIBUTION WIDTH 14.3 % 11.6-14.4 (BEAKER) (test code = 412) PLATELET COUNT (BEAKER) (test 322 K/CU MM 150-450 code = 756) MEAN PLATELET VOLUME (BEAKER) 9.1 fL 9.4-12.4 L (test code = 754) NUCLEATED RED BLOOD CELLS 0 /100 WBC 0-0 (BEAKER) (test code = 413) NEUTROPHILS RELATIVE PERCENT 73 % (BEAKER) (test code = 429) LYMPHOCYTES RELATIVE PERCENT 14 % (BEAKER) (test code = 430) MONOCYTES RELATIVE PERCENT 10 % (BEAKER) (test code = 431) EOSINOPHILS RELATIVE PERCENT 3 % (BEAKER) (test code = 432) BASOPHILS RELATIVE PERCENT 1 % (BEAKER) (test code = 437) NEUTROPHILS ABSOLUTE COUNT 4.85 K/ L 1.78-5.38 (BEAKER) (test code = 670) LYMPHOCYTES ABSOLUTE COUNT 0.90 K/ L 1.32-3.57 L (BEAKER) (test code = 414) MONOCYTES ABSOLUTE COUNT (BEAKER) 0.64 K/ L 0.30-0.82 (test code = 415) EOSINOPHILS ABSOLUTE COUNT 0.17 K/ L 0.04-0.54 (BEAKER) (test code = 416) BASOPHILS ABSOLUTE COUNT (BEAKER) 0.04 K/ L 0.01-0.08 (test code = 417) IMMATURE GRANULOCYTES-RELATIVE 0 % 0-1 PERCENT (BEAKER) (test code = 2801) POCT-GLUCOSE [id number] 21:21:09 Test Item Value Reference Range Interpretation Comments POC-GLUCOSE METER 105 mg/dL 70-110 : TESTED Izabela Yuan [facility] 6720 (BEAKER) (test code = [facility] [place], 1538) 83246: Administrative Aide/Techni glenis ID = [id number] for DELIA REBOLLEDO SE POCT-GLUCOSE [id number] 17:30:16 Test Item Value Reference Range Interpretation Comments POC-GLUCOSE METER 103 mg/dL 70-110 : TESTED A T [facility] 6720 (BEAKER) (test code = [facility], 1538) 77324: Administrative Aide/Techni glenis ID = [id number] for KEVIN HUTCHINS POCT-GLUCOSE [id number] 12:38:28 Test Item Value Reference Range Interpretation Comments POC-GLUCOSE METER 122 mg/dL 70-110 H : TESTED A T [facility] 6720 (BEAKER) (test code = [facility], 1538) 62277: Administrative Aide/Techni glenis ID = [id number] for KEVIN HUTCHINS POCT-GLUCOSE [id number] 07:49:05 Test Item Value Reference Range Interpretation Comments POC-GLUCOSE METER 99 mg/dL 70-110 : TESTED A T [facility] 6720 (BEAKER) (test code = [facility], 1538) 41354: Administrative Aide/Techni glenis ID = [id number] for KEVIN HUTCHINS BASIC METABOLIC [id number] 06:14:39 Test Item Value Reference Range Interpretation Comments SODIUM (BEAKER) 138 meq/L 136-145 (test code = 381) POTASSIUM (BEAKER) 4.2 meq/L 3.5-5.1 (test code = 379) CHLORIDE (BEAKER) 104 meq/L 98-107 (test code = 382) CO2 (BEAKER) (test 27 meq/L 22-29 code = 355) BLOOD UREA NITROGEN 18 mg/dL 7-21 (BEAKER) (test code = 354) CREATININE (BEAKER) 3.94 mg/dL 0.57-1.25 H (test code = 358) GLUCOSE RANDOM 110 mg/dL 70-105 H (BEAKER) (test code = 652) CALCIUM (BEAKER) 9.2 mg/dL 8.4-10.2 (test code = 697) EGFR (BEAKER) (test 16 mL/min/1.73 ESTIMA FRANKLIN GFR IS code = 1092) sq m NOT ACCURATE CREATININE CLEARANCE IN PREDICTING GLOMERULAR FILTRATION RATE . ESTIMATED GFR I S NOT APPLICABLE FOR DIALYSIS PATIEN TS. Administrative Aide ID - PIAYA [id number] 06:03:53 Test Item Value Reference Range Interpretation Comments MAGNESIUM (BEAKER) (test code = 2.1 mg/dL 1.6-2.6 627) Administrative Aide ID - PIAYA LCBC W/PLT COUNT & AUTO [id number] 05:00:23 Test Item Value Reference Range Interpretation Comments WHITE BLOOD CELL COUNT (BEAKER) 6.1 K/ L 3.5-10.5 (test code = 775) RED BLOOD CELL COUNT (BEAKER) 3.44 M/ L 4.63-6.08 L (test code = 761) HEMOGLOBIN (BEAKER) (test code = 10.4 GM/DL 13.7-17.5 L 410) HEMATOCRIT (BEAKER) (test code = 36.2 % 40.1-51.0 L 411) MEAN CORPUSCULAR VOLUME (BEAKER) 105.2 fL 79.0-92.2 H (test code = 753) MEAN CORPUSCULAR HEMOGLOBIN 30.2 pg 25.7-32.2 (BEAKER) (test code = 751) MEAN CORPUSCULAR HEMOGLOBIN CONC 28.7 GM/DL 32.3-36.5 L (BEAKER) (test code = 752) RED CELL DISTRIBUTION WIDTH 14.7 % 11.6-14.4 H (BEAKER) (test code = 412) PLATELET COUNT (BEAKER) (test 305 K/CU MM 150-450 code = 756) MEAN PLATELET VOLUME (BEAKER) 8.9 fL 9.4-12.4 L (test code = 754) NUCLEATED RED BLOOD CELLS 0 /100 WBC 0-0 (BEAKER) (test code = 413) NEUTROPHILS RELATIVE PERCENT 66 % (BEAKER) (test code = 429) LYMPHOCYTES RELATIVE PERCENT 19 % (BEAKER) (test code = 430) MONOCYTES RELATIVE PERCENT 11 % (BEAKER) (test code = 431) EOSINOPHILS RELATIVE PERCENT 4 % (BEAKER) (test code = 432) BASOPHILS RELATIVE PERCENT 1 % (BEAKER) (test code = 437) NEUTROPHILS ABSOLUTE COUNT 3.99 K/ L 1.78-5.38 (BEAKER) (test code = 670) LYMPHOCYTES ABSOLUTE COUNT 1.17 K/ L 1.32-3.57 L (BEAKER) (test code = 414) MONOCYTES ABSOLUTE COUNT (BEAKER) 0.65 K/ L 0.30-0.82 (test code = 415) EOSINOPHILS ABSOLUTE COUNT 0.21 K/ L 0.04-0.54 (AKER) (test code = 416) BASOPHILS ABSOLUTE COUNT (AKER) 0.03 K/ L 0.01-0.08 (test code = 417) IMMATURE GRANULOCYTES-RELATIVE 0 % 0-1 PERCENT (AKER) (test code = 2801) POCT-GLUCOSE [id number] 20:48:33 Test Item Value Reference Range Interpretation Comments POC-GLUCOSE METER 138 mg/dL 70-110 H : TESTED A T [facility] 6720 ([facility]) (test code = [facility], 1538) 77386: Administrative Aide/Techni glenis ID = [id number] for Sabrina Lechuga POCT-GLUCOSE [id number] 17:17:06 Test Item Value Reference Range Interpretation Comments POC-GLUCOSE METER 129 mg/dL 70-110 H : TESTED A T [facility] 6720 ([facility]) (test code = [facility], 1538) 25094: Administrative Aide/Techni glenis ID = [id number] for KEVIN HUTCHINS POCT-GLUCOSE [id number] 12:46:34 Test Item Value Reference Range Interpretation Comments POC-GLUCOSE METER 91 mg/dL 70-110 : TESTED A T [facility] 6720 ([facility]) (test code = [facility], 1538) 88363: Administrative Aide/Techni glenis ID = [id number] for KEVIN HUTCHINS HEMOGLOBIN [id number] 12:34:05 Test Item Value Reference Range Interpretation Comments HEMOGLOBIN A1C 5.0 % See_Comment [Automated m essage] ELECTROPHORESIS ([facility]) The system which (test code = 3811) generated this result transmitted ref erence range: <=5.6%. The reference range was not used to int erpret this result as normal/abnormal . "The A1c is measured using a NGSP-certified method. HbA1c value equal to or greater than 6.5% as thediagnosis cutoff for diabetes. An HbA1c value of 5.7- 6.4% indicates increased risk for diabetes (prediabetes)."Administrative Aide ID - ADM [id number] 08:19:22 Test Item Value Reference Range Interpretation Comments [facility] (test code = 5.2 mg/dL 2.3-4.7 H 604) Administrative Aide ID - PEGGY LHEPATITIS B SURFACE [id number] 06:00:40 Test Item Value Reference Range Interpretation Comments HEPATITIS B SURFACE ANTIGEN (2) Nonreactive Nonreactive (BEAKER) (test code = 2585) Specimen is considered negative for HBsAg.BASIC METABOLIC [id number] 05:15:01 Test Item Value Reference Range Interpretation Comments SODIUM (BEAKER) 138 meq/L 136-145 (test code = 381) POTASSIUM (BEAKER) 4.7 meq/L 3.5-5.1 (test code = 379) CHLORIDE (BEAKER) 106 meq/L 98-107 (test code = 382) CO2 (BEAKER) (test 21 meq/L 22-29 L code = 355) BLOOD UREA NITROGEN 35 mg/dL 7-21 H (BEAKER) (test code = 354) CREATININE (BEAKER) 6.01 mg/dL 0.57-1.25 H (test code = 358) GLUCOSE RANDOM 99 mg/dL 70-105 (BEAKER) (test code = 652) CALCIUM (BEAKER) 9.2 mg/dL 8.4-10.2 (test code = 697) EGFR (BEAKER) (test 10 mL/min/1.73 ESTIMA FRANKLIN GFR IS code = 1092) sq m NOT ACCURATE CREATININE CLEARANCE IN PREDICTING GLOMERULAR FILTRATION RATE . ESTIMATED GFR I S NOT APPLICABLE FOR DIALYSIS PATIEN TS. Administrative Aide ID - PEGGY [id number] 05:13:34 Test Item Value Reference Range Interpretation Comments MAGNESIUM (BEAKER) (test code = 2.2 mg/dL 1.6-2.6 627) Administrative Aide ID - PEGGY LCBC W/PLT COUNT & AUTO [id number] 04:41:42 Test Item Value Reference Range Interpretation Comments WHITE BLOOD CELL COUNT (BEAKER) 10.1 K/ L 3.5-10.5 (test code = 775) RED BLOOD CELL COUNT (BEAKER) 3.53 M/ L 4.63-6.08 L (test code = 761) HEMOGLOBIN (BEAKER) (test code = 10.8 GM/DL 13.7-17.5 L 410) HEMATOCRIT (BEAKER) (test code = 35.8 % 40.1-51.0 L 411) MEAN CORPUSCULAR VOLUME (BEAKER) 101.4 fL 79.0-92.2 H (test code = 753) MEAN CORPUSCULAR HEMOGLOBIN 30.6 pg 25.7-32.2 (BEAKER) (test code = 751) MEAN CORPUSCULAR HEMOGLOBIN CONC 30.2 GM/DL 32.3-36.5 L (BEAKER) (test code = 752) RED CELL DISTRIBUTION WIDTH 14.6 % 11.6-14.4 H (BEAKER) (test code = 412) PLATELET COUNT (BEAKER) (test 329 K/CU MM 150-450 code = 756) MEAN PLATELET VOLUME (BEAKER) 9.2 fL 9.4-12.4 L (test code = 754) NUCLEATED RED BLOOD CELLS 0 /100 WBC 0-0 (BEAKER) (test code = 413) NEUTROPHILS RELATIVE PERCENT 82 % (BEAKER) (test code = 429) LYMPHOCYTES RELATIVE PERCENT 10 % (BEAKER) (test code = 430) MONOCYTES RELATIVE PERCENT 6 % (BEAKER) (test code = 431) EOSINOPHILS RELATIVE PERCENT 2 % (BEAKER) (test code = 432) BASOPHILS RELATIVE PERCENT 1 % (BEAKER) (test code = 437) NEUTROPHILS ABSOLUTE COUNT 8.30 K/ L 1.78-5.38 H (BEAKER) (test code = 670) LYMPHOCYTES ABSOLUTE COUNT 0.98 K/ L 1.32-3.57 L (BEAKER) (test code = 414) MONOCYTES ABSOLUTE COUNT (BEAKER) 0.57 K/ L 0.30-0.82 (test code = 415) EOSINOPHILS ABSOLUTE COUNT 0.17 K/ L 0.04-0.54 (BEAKER) (test code = 416) BASOPHILS ABSOLUTE COUNT (BEAKER) 0.07 K/ L 0.01-0.08 (test code = 417) IMMATURE GRANULOCYTES-RELATIVE 0 % 0-1 PERCENT (BEAKER) (test code = 2801) POCT-GLUCOSE [id number] 23:04:01 Test Item Value Reference Range Interpretation Comments POC-GLUCOSE METER 123 mg/dL 70-110 H : TESTED Izabela Yuan [facility] 6720 (BEAKER) (test code = BRENDA RAMIRE[place], 1538) [id number]: Administrative Aide/Techni glenis ID = [id number] for Cheryl Hansen POCT-GLUCOSE [id number] 18:00:26 Test Item Value Reference Range Interpretation Comments POC-GLUCOSE METER 122 mg/dL 70-110 H : [facility] ([facility]) (test code = BRENDA Prieto [facility], 1538) [address]: Administrative Aide/Techni glenis ID = [id number] for Kellie Fletcher POCT-GLUCOSE [id number] 15:29:33 Test Item Value Reference Range Interpretation Comments POC-GLUCOSE METER 104 mg/dL 70-110 : [facility] ([facility]) (test code = BRENDA Prieto [facility], 1538) [address]: Administrative Aide/Techni glenis ID = [id number] for MANINDER TORIBIO (V)NAYLAA POCT-GLUCOSE [id number] 09:53:45 Test Item Value Reference Range Interpretation Comments POC-GLUCOSE METER 140 mg/dL 70-110 H : [facility] RN[facility]: [facility] (test code = TESTED AT [facility] 6720 1538) [facility], [address]: Administrative Aide/Techni glenis ID = [id number] for PAPI NZSHAINA HODGSON POTASSIUM-STAT [id number] 09:40:28 Test Item Value Reference Range Interpretation Comments POTASSIUM ([facility]) (test code = 4.5 meq/L 3.6-5.5 379) SARS-COV2/RT-PCR ([facility])2021-06-28 23:55:10 Test Item Value Reference Range Interpretation Comments SARS-COV2/RT-PCR (test code = Negative Negative [id number]) Negative result for this test determines that SARS-CoV-2 RNA was not present in the specimen above the Limit of Detection (LOD). However, Negative results do not preclude SARS-CoV-2 infection and should not be used as the sole basis for treatment or patient management decisions. Negative results must be combined with clinical observations, patient history, and epidemiological information. A false negative result may occur if a specimen is improperly collected, transported, or handled. A false negative result should be considered if patient's recent exposures or clinical presentation indicate that COVID-19 (SARS-CoV-2) is likely and diagnostic tests for other causes of illness are negative. Re-testing should be considered in cases of suspected false negatives.The limit of detection for this assay is 100 copies/mL.This SARS-CoV-2 test is a real-time RT_PCR test intended for the qualitative detection of nucleic acid from SARS-CoV-2 in a nasopharyngeal swab specimen collected from individuals suspected of COVID-19 by their healthcare provider.This test has not been Food and Drug Administration (FDA) cleared or approved. This is a modified version of an approved Emergency Use Authorization (EUA) and is in the process of review by the FDA. Once authorized by the FDA, the issued EUA will be e ffective until the declaration that circumstances exist justifying the authorization of the emergency use of in vitro diagnostic tests for detection and/or diagnosis of COVID-19 is terminated under Section 564(b)(2) of the Act or the EUA is revoked under Section 564(g) of the Act.Testing was performedusing the [place] SARS-CoV-2 assay.Fact Sheet for Healthcare Providers:https://www.[employer] Piper/nash/RT SARS-CoV-2 HCP Fact Sheet 51- 993123.pdfFact Sheet for Healthcare Patients:https://www.[employer]/nash/RT SARS-CoV-2 Patient Fact Sheet EN 51-309932M8.pdfBASI METABOLIC [id number] 15:02:11 Test Item Value Reference Range Interpretation Comments SODIUM (BEAKER) 140 meq/L 136-145 (test code = 381) POTASSIUM (BEAKER) 3.9 meq/L 3.5-5.1 (test code = 379) CHLORIDE (BEAKER) 101 meq/L 98-107 (test code = 382) CO2 (BEAKER) (test 31 meq/L 22-29 H code = 355) BLOOD UREA NITROGEN 10 mg/dL 7-21 (BEAKER) (test code = 354) CREATININE (BEAKER) 2.69 mg/dL 0.57-1.25 H (test code = 358) GLUCOSE RANDOM 150 mg/dL 70-105 H (BEAKER) (test code = 652) CALCIUM (BEAKER) 9.5 mg/dL 8.4-10.2 (test code = 697) EGFR (BEAKER) (test 25 mL/min/1.73 ESTIMA FRANKLIN GFR IS code = 1092) sq m NOT ACCURATE CREATININE CLEARANCE IN PREDICTING GLOMERULAR FILTRATION RATE . ESTIMATED GFR I S NOT APPLICABLE FOR DIALYSIS PATIEN TS. Administrative Aide ID - [id number] 14:42:17 Test Item Value Reference Range Interpretation Comments HEMOGLOBIN (BEAKER) (test code = 11.8 GM/DL 13.7-17.5 L 410) Administrative Aide ID - [id number] CULTURE + SMEAR (NON-SPUTUM)2021-06-24 08:48:35 Test Item Value Reference Range Interpretation Comments CULTURE (BEAKER) (test No acid-fast bacilli code = 1095) isolated in 42 days AFB SMEAR (BEAKER) No acid fast bacilli (test code = 994) seen FUNGUS CULTURE + [id number] 00:08:10 Test Item Value Reference Range Interpretation Comments CULTURE (BEAKER) (test No fungus isolated in code = 1095) 28 days FUNGUS SMEAR (BEAKER) No fungal elements seen (test code = 1406) POCT-GLUCOSE [id number] 12:00:35 Test Item Value Reference Range Interpretation Comments POC-GLUCOSE METER 87 mg/dL 70-110 : TESTED A T [facility] 6720 (BEAKER) (test code = BRENDA RAMIRE[place], 1538) [address]: Administrative Aide/Techni glenis ID = [id number] for JOSHUA HOYT BASIC METABOLIC [id number] 09:12:49 Test Item Value Reference Range Interpretation Comments SODIUM (BEAKER) 138 meq/L 136-145 (test code = 381) POTASSIUM (BEAKER) 4.0 meq/L 3.5-5.1 (test code = 379) CHLORIDE (BEAKER) 102 meq/L 98-107 (test code = 382) CO2 (BEAKER) (test 29 meq/L 22-29 code = 355) BLOOD UREA NITROGEN 14 mg/dL 7-21 (BEAKER) (test code = 354) CREATININE (BEAKER) 5.23 mg/dL 0.57-1.25 H (test code = 358) GLUCOSE RANDOM 102 mg/dL 70-105 (BEAKER) (test code = 652) CALCIUM (BEAKER) 8.8 mg/dL 8.4-10.2 (test code = 697) EGFR (BEAKER) (test 12 mL/min/1.73 ESTIMA FRANKLIN GFR IS code = 1092) sq m NOT ACCURATE CREATININE CLEARANCE IN PREDICTING GLOMERULAR FILTRATION RATE . ESTIMATED GFR I S NOT APPLICABLE FOR DIALYSIS PATIEN TS. Administrative Aide ID - ADMINOperator ID - [id number] 09:09:03 Test Item Value Reference Range Interpretation Comments MAGNESIUM (BEAKER) (test code = 2.2 mg/dL 1.6-2.6 627) Administrative Aide ID - ADMINCBC W/PLT COUNT & AUTO [id number] 08:47:20 Test Item Value Reference Range Interpretation Comments WHITE BLOOD CELL COUNT (BEAKER) 4.6 K/ L 3.5-10.5 (test code = 775) RED BLOOD CELL COUNT (BEAKER) 2.77 M/ L 4.63-6.08 L (test code = 761) HEMOGLOBIN (BEAKER) (test code = 8.1 GM/DL 13.7-17.5 L 410) HEMATOCRIT (BEAKER) (test code = 27.4 % 40.1-51.0 L 411) MEAN CORPUSCULAR VOLUME (BEAKER) 98.9 fL 79.0-92.2 H (test code = 753) MEAN CORPUSCULAR HEMOGLOBIN 29.2 pg 25.7-32.2 (BEAKER) (test code = 751) MEAN CORPUSCULAR HEMOGLOBIN CONC 29.6 GM/DL 32.3-36.5 L (BEAKER) (test code = 752) RED CELL DISTRIBUTION WIDTH 15.7 % 11.6-14.4 H (BEAKER) (test code = 412) PLATELET COUNT (BEAKER) (test 278 K/CU MM 150-450 code = 756) MEAN PLATELET VOLUME (BEAKER) 8.5 fL 9.4-12.4 L (test code = 754) NUCLEATED RED BLOOD CELLS 0 /100 WBC 0-0 (BEAKER) (test code = 413) NEUTROPHILS RELATIVE PERCENT 71 % (BEAKER) (test code = 429) LYMPHOCYTES RELATIVE PERCENT 19 % (BEAKER) (test code = 430) MONOCYTES RELATIVE PERCENT 6 % (BEAKER) (test code = 431) EOSINOPHILS RELATIVE PERCENT 3 % (BEAKER) (test code = 432) BASOPHILS RELATIVE PERCENT 1 % (BEAKER) (test code = 437) NEUTROPHILS ABSOLUTE COUNT 3.31 K/ L 1.78-5.38 (BEAKER) (test code = 670) LYMPHOCYTES ABSOLUTE COUNT 0.89 K/ L 1.32-3.57 L (BEAKER) (test code = 414) MONOCYTES ABSOLUTE COUNT (BEAKER) 0.27 K/ L 0.30-0.82 L (test code = 415) EOSINOPHILS ABSOLUTE COUNT 0.12 K/ L 0.04-0.54 (BEAKER) (test code = 416) BASOPHILS ABSOLUTE COUNT (BEAKER) 0.03 K/ L 0.01-0.08 (test code = 417) IMMATURE GRANULOCYTES-RELATIVE 0 % 0-1 PERCENT (BEAKER) (test code = 2801) POCT-GLUCOSE [id number] 08:01:14 Test Item Value Reference Range Interpretation Comments POC-GLUCOSE METER 92 mg/dL 70-110 : TESTED A T [facility] 6720 (BEAKER) (test code = [facility], [facility]8) 46[address]: Administrative Aide/Techni glenis ID = [id number] for MART IN, CHIANNA POCT-GLUCOSE [id number] 21:10:54 Test Item Value Reference Range Interpretation Comments POC-GLUCOSE METER 123 mg/dL 70-110 H : TESTED A T [facility] 6720 (BEAKER) (test code = [facility], [facility]8) 14966: Administrative Aide/Techni glenis ID = [id number] for MO DELIA ZUNIGA POCT-GLUCOSE [id number] 17:47:54 Test Item Value Reference Range Interpretation Comments POC-GLUCOSE METER 127 mg/dL 70-110 H : TESTED A T [facility] 6720 (BEAKER) (test code = [facility], 1538) 310[address]: Administrative Aide/Techni glenis ID = [id number] for MA RTIN, CHIANNA POCT-GLUCOSE [id number] 11:44:55 Test Item Value Reference Range Interpretation Comments POC-GLUCOSE METER 138 mg/dL 70-110 H : TESTED A T [facility] 6720 (BEAKER) (test code = [facility], 1538) 788[address]: Administrative Aide/Techni glenis ID = [id number] for MA RTIN, CHIANNA POCT-GLUCOSE [id number] 07:25:37 Test Item Value Reference Range Interpretation Comments POC-GLUCOSE METER 77 mg/dL 70-110 : TESTED A T [facility] 6720 (BEAKER) (test code = [facility], 1538) 02678: Administrative Aide/Techni glenis ID = [id number] for MART IN, CHIANNA BASIC METABOLIC [id number] 06:31:57 Test Item Value Reference Range Interpretation Comments SODIUM (BEAKER) 138 meq/L 136-145 (test code = 381) POTASSIUM (BEAKER) 4.1 meq/L 3.5-5.1 (test code = 379) CHLORIDE (BEAKER) 101 meq/L 98-107 (test code = 382) CO2 (BEAKER) (test 27 meq/L 22-29 code = 355) BLOOD UREA NITROGEN 12 mg/dL 7-21 (BEAKER) (test code = 354) CREATININE (BEAKER) 4.88 mg/dL 0.57-1.25 H (test code = 358) GLUCOSE RANDOM 84 mg/dL 70-105 (BEAKER) (test code = 652) CALCIUM (BEAKER) 8.6 mg/dL 8.4-10.2 (test code = 697) EGFR (BEAKER) (test 13 mL/min/1.73 ESTIMA FRANKLIN GFR IS code = 1092) sq m NOT ACCURATE CREATININE CLEARANCE IN PREDICTING GLOMERULAR FILTRATION RATE . ESTIMATED GFR I S NOT APPLICABLE FOR DIALYSIS PATIEN TS. Administrative Aide ID - PIAYA [id number] 06:27:02 Test Item Value Reference Range Interpretation Comments MAGNESIUM (BEAKER) (test code = 2.1 mg/dL 1.6-2.6 627) Administrative Aide ID - PEGGY LCBC W/PLT COUNT & AUTO [id number] 06:04:27 Test Item Value Reference Range Interpretation Comments WHITE BLOOD CELL COUNT (BEAKER) 6.1 K/ L 3.5-10.5 (test code = 775) RED BLOOD CELL COUNT (BEAKER) 2.96 M/ L 4.63-6.08 L (test code = 761) HEMOGLOBIN (BEAKER) (test code = 8.6 GM/DL 13.7-17.5 L 410) HEMATOCRIT (BEAKER) (test code = 28.5 % 40.1-51.0 L 411) MEAN CORPUSCULAR VOLUME (BEAKER) 96.3 fL 79.0-92.2 H (test code = 753) MEAN CORPUSCULAR HEMOGLOBIN 29.1 pg 25.7-32.2 (BEAKER) (test code = 751) MEAN CORPUSCULAR HEMOGLOBIN CONC 30.2 GM/DL 32.3-36.5 L (BEAKER) (test code = 752) RED CELL DISTRIBUTION WIDTH 15.6 % 11.6-14.4 H (BEAKER) (test code = 412) PLATELET COUNT (BEAKER) (test 357 K/CU MM 150-450 code = 756) MEAN [...] (test code = 437) NEUTROPHILS ABSOLUTE COUNT 4.41 K/ L 1.78-5.38 (BEAKER) (test code = 670) LYMPHOCYTES ABSOLUTE COUNT 0.86 K/ L 1.32-3.57 L (BEAKER) (test code = 414) MONOCYTES ABSOLUTE COUNT (BEAKER) 0.63 K/ L 0.30-0.82 (test code = 415) EOSINOPHILS ABSOLUTE COUNT 0.13 K/ L 0.04-0.54 (BEAKER) (test code = 416) BASOPHILS ABSOLUTE COUNT (BEAKER) 0.05 K/ L 0.01-0.08 (test code = 417) IMMATURE GRANULOCYTES-RELATIVE 1 % 0-1 PERCENT (BEAKER) (test code = 2801) POCT-GLUCOSE [id number] 21:12:35 Test Item Value Reference Range Interpretation Comments POC-GLUCOSE METER 89 mg/dL 70-110 : TESTED A T [facility] 6720 (BEAKER) (test code = [facility], 153) 47812: Administrative Aide/Techni glenis ID = [id number] for MIO Veronica ALLISON POCT-GLUCOSE [id number] 18:41:41 Test Item Value Reference Range Interpretation Comments POC-GLUCOSE METER 122 mg/dL 70-110 H : TESTED A T [facility] 6720 (BEAKER) (test code = [facility], 153) 53194: Administrative Aide/Techni glenis ID = [id number] for RAMIREZ, QUINTON MIKE POCT-GLUCOSE [id number] 12:38:29 Test Item Value Reference Range Interpretation Comments POC-GLUCOSE METER 99 mg/dL 70-110 : TESTED A T [facility] 6720 (BEAKER) (test code = BR[place]DA RAM[place], 1538) 54260: Administrative Aide/Techni glenis ID = [id number] for ULISES GONZALEZ BASIC METABOLIC [id number] 12:24:12 Test Item Value Reference Range Interpretation Comments SODIUM (BEAKER) 138 meq/L 136-145 (test code = 381) POTASSIUM (BEAKER) 4.3 meq/L 3.5-5.1 (test code = 379) CHLORIDE (BEAKER) 98 meq/L 98-107 (test code = 382) CO2 (BEAKER) (test 29 meq/L 22-29 code = 355) BLOOD UREA NITROGEN 18 mg/dL 7-21 (BEAKER) (test code = 354) CREATININE (BEAKER) 6.78 mg/dL 0.57-1.25 H (test code = 358) GLUCOSE RANDOM 96 mg/dL 70-105 (BEAKER) (test code = 652) CALCIUM (BEAKER) 9.2 mg/dL 8.4-10.2 (test code = 697) EGFR (BEAKER) (test 9 mL/min/1.73 ESTIMAT ED GFR IS code = 1092) sq m NOT ACCURATE CREATININE CLEARANCE IN PREDICTING GLOMERULAR FILTRATION RATE . ESTIMATED GFR I S NOT APPLICABLE FOR DIALYSIS PATIEN TS. Administrative Aide ID - MILEY [id number] 12:08:38 Test Item Value Reference Range Interpretation Comments MAGNESIUM (BEAKER) (test code = 2.3 mg/dL 1.6-2.6 627) Administrative Aide ID - MILEY FLACTIC ACID, [id number] 11:53:54 Test Item Value Reference Range Interpretation Comments LACTATE BLOOD VENOUS (2) (BEAKER) 0.90 mmol/L 0.50-2.20 (test code = 2872) Administrative Aide ID - KEVIN MCBC W/PLT COUNT & AUTO [id number] 11:22:46 Test Item Value Reference Range Interpretation Comments WHITE BLOOD CELL COUNT (BEAKER) 5.1 K/ L 3.5-10.5 (test code = 775) RED BLOOD CELL COUNT (BEAKER) 3.77 M/ L 4.63-6.08 L (test code = 761) HEMOGLOBIN (BEAKER) (test code = 10.9 GM/DL 13.7-17.5 L 410) HEMATOCRIT (BEAKER) (test code = 35.9 % 40.1-51.0 L 411) MEAN CORPUSCULAR VOLUME (BEAKER) 95.2 fL 79.0-92.2 H (test code = 753) MEAN CORPUSCULAR HEMOGLOBIN 28.9 pg 25.7-32.2 (BEAKER) (test code = 751) MEAN CORPUSCULAR HEMOGLOBIN CONC 30.4 GM/DL 32.3-36.5 L (BEAKER) (test code = 752) RED CELL DISTRIBUTION WIDTH 15.6 % 11.6-14.4 H (BEAKER) (test code = 412) PLATELET COUNT (BEAKER) (test 316 K/CU MM 150-450 code = 756) MEAN [...] (test code = 437) NEUTROPHILS ABSOLUTE COUNT 3.68 K/ L 1.78-5.38 (BEAKER) (test code = 670) LYMPHOCYTES ABSOLUTE COUNT 0.71 K/ L 1.32-3.57 L (BEAKER) (test code = 414) MONOCYTES ABSOLUTE COUNT (BEAKER) 0.44 K/ L 0.30-0.82 (test code = 415) EOSINOPHILS ABSOLUTE COUNT 0.15 K/ L 0.04-0.54 (BEAKER) (test code = 416) BASOPHILS ABSOLUTE COUNT (BEAKER) 0.05 K/ L 0.01-0.08 (test code = 417) IMMATURE GRANULOCYTES-RELATIVE 1 % 0-1 PERCENT (BEAKER) (test code = 2801) SARS-COV2/RT-PCR ([facility])2021-05-08 10:17:17 Test Item Value Reference Range Interpretation Comments SARS-COV2/RT-PCR (test Negative Not Detected, Negative, code = 5198889) See external report for linked test SARS-COV-[address] [facility] ARTURO (test code = 3618884) Negative result for this test determines that [...] 564(g) of the Act.Fact Sheet for Healthcare Providers:https://www.[employer].com/sites/default/files/product/documents/Fact_Shee w_MH_Zuuhhfmdp_Pqle_YQBM-ZoN-2.pdfFact Sheet for Healthcare Patients:https://www.[employer].com/sites/default/files/product/ documents/Lzso_Hqwuu_Axruurrk_Bqpo_YDNX-MeR-5.pdfPerforming Laboratory:[place] [address] [address] [place], [place] [address]SKXU-DTGFCXN METER 2021-05-08 07:28:10 Test Item Value Reference Range Interpretation Comments POC-GLUCOSE METER 89 mg/dL 70-110 : TESTED A T [facility] 6720 (BEAKER) (test code = [facility], 153) 92208: Administrative Aide/Techni glenis ID = [id number] for ULISES GONZALEZ POCT-GLUCOSE [id number] 21:35:22 Test Item Value Reference Range Interpretation Comments POC-GLUCOSE METER 102 mg/dL 70-110 : TESTED A T [facility] 6720 (BEAKER) (test code = [facility], 153) 83443: Administrative Aide/Techni glenis ID = [id number] for CARLOTTA SAMMIALLISON POCT-GLUCOSE [id number] 17:29:27 Test Item Value Reference Range Interpretation Comments POC-GLUCOSE METER 87 mg/dL 70-110 : TESTED A T [facility] 6720 (BEAKER) (test code = [facility], 153) 55275: Administrative Aide/Techni glenis ID = [id number] for ULISES GONZALEZ POCT-GLUCOSE [id number] 12:18:54 Test Item Value Reference Range Interpretation Comments POC-GLUCOSE METER 148 mg/dL 70-110 H : TESTED A T [facility] 6720 (BEAKER) (test code = [facility], 153) 19232: Administrative Aide/Techni glenis ID = [id number] for QUINTON RAMIREZ POCT-GLUCOSE [id number] 08:38:02 Test Item Value Reference Range Interpretation Comments POC-GLUCOSE METER 100 mg/dL 70-110 : TESTED A T [facility] 6720 (BEAKER) (test code = [facility], 153) 69134: Administrative Aide/Techni glenis ID = [id number] for Allyson Fletcher POCT-GLUCOSE [id number] 07:31:45 Test Item Value Reference Range Interpretation Comments POC-GLUCOSE METER 67 mg/dL 70-110 L : TESTED A T [facility] 6720 (BEAKER) (test code = [facility], 153) 47415: Administrative Aide/Techni glenis ID = [id number] for ULISES GONZALEZ BASIC METABOLIC [id number] 06:52:12 Test Item Value Reference Range Interpretation Comments SODIUM (BEAKER) 138 meq/L 136-145 (test code = 381) POTASSIUM (BEAKER) 4.4 meq/L 3.5-5.1 (test code = 379) CHLORIDE (BEAKER) 100 meq/L 98-107 (test code = 382) CO2 (BEAKER) (test 28 meq/L 22-29 code = 355) BLOOD UREA NITROGEN 16 mg/dL 7-21 (BEAKER) (test code = 354) CREATININE (BEAKER) 5.38 mg/dL 0.57-1.25 H (test code = 358) GLUCOSE RANDOM 75 mg/dL 70-105 (BEAKER) (test code = 652) CALCIUM (BEAKER) 8.8 mg/dL 8.4-10.2 (test code = 697) EGFR (BEAKER) (test 11 mL/min/1.73 ESTIMA FRAKNLIN GFR IS code = 1092) sq m NOT ACCURATE CREATININE CLEARANCE IN PREDICTING GLOMERULAR FILTRATION RATE . ESTIMATED GFR I S NOT APPLICABLE FOR DIALYSIS PATIEN TS. Administrative Aide ID - KEVIN [id number] 06:50:27 Test Item Value Reference Range Interpretation Comments MAGNESIUM (BEAKER) (test code = 2.1 mg/dL 1.6-2.6 627) Administrative Aide ID - KEVIN MCBC W/PLT COUNT & AUTO [id number] 06:30:03 Test Item Value Reference Range Interpretation Comments WHITE BLOOD CELL COUNT (BEAKER) 6.5 K/ L 3.5-10.5 (test code = 775) RED BLOOD CELL COUNT (BEAKER) 3.25 M/ L 4.63-6.08 L (test code = 761) HEMOGLOBIN (BEAKER) (test code = 9.3 GM/DL 13.7-17.5 L 410) HEMATOCRIT (BEAKER) (test code = 30.9 % 40.1-51.0 L 411) MEAN CORPUSCULAR VOLUME (BEAKER) 95.1 fL 79.0-92.2 H (test code = 753) MEAN CORPUSCULAR HEMOGLOBIN 28.6 pg 25.7-32.2 (BEAKER) (test code = 751) MEAN CORPUSCULAR HEMOGLOBIN CONC 30.1 GM/DL 32.3-36.5 L (BEAKER) (test code = 752) RED CELL DISTRIBUTION WIDTH 15.9 % 11.6-14.4 H (BEAKER) (test code = 412) PLATELET COUNT (BEAKER) (test 315 K/CU MM 150-450 code = 756) MEAN PLATELET VOLUME (BEAKER) 8.7 fL 9.4-12.4 L (test code = 754) NUCLEATED RED BLOOD CELLS 0 /100 WBC 0-0 (BEAKER) (test code = 413) NEUTROPHILS RELATIVE PERCENT 76 % (BEAKER) (test code = 429) LYMPHOCYTES [...] PERCENT (BEAKER) (test code = 2801) POCT-GLUCOSE [id number] 21:16:03 Test Item Value Reference Range Interpretation Comments POC-GLUCOSE METER 70 mg/dL 70-110 : [facility] (BEAKER) (test code = [facility], 1538) 51867: Administrative Aide/Techni glenis ID = [id number] for MOI Veronica ALLISON ANAEROBIC [id number] 15:13:41 Test Item Value Reference Range Interpretation Comments CULTURE (BEAKER) (test No anaerobes isolated code = 1095) POCT-GLUCOSE [id number] 12:37:01 Test Item Value Reference Range Interpretation Comments POC-GLUCOSE METER 89 mg/dL 70-110 : TESTED A T [facility] 6720 (BEAKER) (test code = [facility], 1538) 48507: Administrative Aide/Techni glenis ID = [id number] for WILL FLAVIO ZALDIVAR POCT-GLUCOSE [id number] 08:02:34 Test Item Value Reference Range Interpretation Comments POC-GLUCOSE METER 86 mg/dL 70-110 : TESTED A T [facility] 6720 (BEAKER) (test code = BRENDA Prieto [facility], 1538) 41398: Administrative Aide/Techni glenis ID = [id number] for WILL FLAVIO ZALDIVAR BASIC METABOLIC [id number] 05:35:15 Test Item Value Reference Range Interpretation Comments SODIUM (BEAKER) 135 meq/L 136-145 L (test code = 381) POTASSIUM (BEAKER) 4.9 meq/L 3.5-5.1 (test code = 379) CHLORIDE (BEAKER) 97 meq/L 98-107 L (test code = 382) CO2 (BEAKER) (test 26 meq/L 22-29 code = 355) BLOOD UREA NITROGEN 25 mg/dL 7-21 H (BEAKER) (test code = 354) CREATININE (BEAKER) 7.59 mg/dL 0.57-1.25 H (test code = 358) GLUCOSE RANDOM 86 mg/dL 70-105 (BEAKER) (test code = 652) CALCIUM (BEAKER) 8.8 mg/dL 8.4-10.2 (test code = 697) EGFR (BEAKER) (test 8 mL/min/1.73 ESTIMAT ED GFR IS code = 1092) sq m NOT ACCURATE CREATININE CLEARANCE IN PREDICTING GLOMERULAR FILTRATION RATE . ESTIMATED GFR I S NOT APPLICABLE FOR DIALYSIS PATIEN TS. Administrative Aide ID - [id number] 05:32:34 Test Item Value Reference Range Interpretation Comments MAGNESIUM (BEAKER) (test code = 2.3 mg/dL 1.6-2.6 627) Administrative Aide ID - DBCBC W/PLT COUNT & AUTO [id number] 05:17:05 Test Item Value Reference Range Interpretation Comments WHITE BLOOD CELL COUNT (BEAKER) 8.1 K/ L 3.5-10.5 (test code = 775) RED BLOOD CELL COUNT (BEAKER) 3.58 M/ L 4.63-6.08 L (test code = 761) HEMOGLOBIN (BEAKER) (test code = 10.3 GM/DL 13.7-17.5 L 410) HEMATOCRIT (BEAKER) (test code = 34.1 % 40.1-51.0 L 411) MEAN CORPUSCULAR VOLUME (BEAKER) 95.3 fL 79.0-92.2 H (test code = 753) MEAN CORPUSCULAR HEMOGLOBIN 28.8 pg 25.7-32.2 (BEAKER) (test code = 751) MEAN CORPUSCULAR HEMOGLOBIN CONC 30.2 GM/DL 32.3-36.5 L (BEAKER) (test code = 752) RED CELL DISTRIBUTION WIDTH 15.9 % 11.6-14.4 H (BEAKER) (test code = 412) PLATELET COUNT (BEAKER) (test 368 K/CU MM 150-450 code = 756) MEAN [...] (test code = 437) NEUTROPHILS ABSOLUTE COUNT 6.55 K/ L 1.78-5.38 H (BEAKER) (test code = 670) LYMPHOCYTES ABSOLUTE COUNT 0.91 K/ L 1.32-3.57 L (BEAKER) (test code = 414) MONOCYTES ABSOLUTE COUNT (BEAKER) 0.43 K/ L 0.30-0.82 (test code = 415) EOSINOPHILS ABSOLUTE COUNT 0.09 K/ L 0.04-0.54 (BEAKER) (test code = 416) BASOPHILS ABSOLUTE COUNT (BEAKER) 0.04 K/ L 0.01-0.08 (test code = 417) IMMATURE GRANULOCYTES-RELATIVE 0 % 0-1 PERCENT (BEAKER) (test code = 2801) POCT-GLUCOSE [id number] 21:18:06 Test Item Value Reference Range Interpretation Comments POC-GLUCOSE METER 100 mg/dL 70-110 : TESTED Izabela Yuan [facility] 6720 (BEAKER) (test code = [place], 1538) 970[address]: Administrative Aide/Techni glenis ID = [id number] for DELIA REBOLLEDO SE POCT-GLUCOSE [id number] 17:21:37 Test Item Value Reference Range Interpretation Comments POC-GLUCOSE METER 89 mg/dL 70-110 : TESTED A T [facility] 6720 (BEAKER) (test code = [facility], [facility]) 57280: Administrative Aide/Techni glenis ID = [id number] for Gopal Blackn POCT-GLUCOSE [id number] 12:40:34 Test Item Value Reference Range Interpretation Comments POC-GLUCOSE METER 91 mg/dL 70-110 : TESTED A T [facility] 6720 (BEAKER) (test code = [facility], [facility]) 500[address]: Administrative Aide/Techni glenis ID = [id number] for Marquis Black POCT-GLUCOSE [id number] 08:07:18 Test Item Value Reference Range Interpretation Comments POC-GLUCOSE METER 89 mg/dL 70-110 : TESTED A T [facility] 6720 (BEAKER) (test code = [facility], [facility]) [address]: Administrative Aide/Techni glenis ID = [id number] for Marquis Black BASIC METABOLIC [id number] 06:20:02 Test Item Value Reference Range Interpretation Comments SODIUM (BEAKER) 137 meq/L 136-145 (test code = 381) POTASSIUM (BEAKER) 4.3 meq/L 3.5-5.1 (test code = 379) CHLORIDE (BEAKER) 99 meq/L 98-107 (test code = 382) CO2 (BEAKER) (test 27 meq/L 22-29 code = 355) BLOOD UREA NITROGEN 20 mg/dL 7-21 (BEAKER) (test code = 354) CREATININE (BEAKER) 6.16 mg/dL 0.57-1.25 H (test code = 358) GLUCOSE RANDOM 79 mg/dL 70-105 (BEAKER) (test code = 652) CALCIUM (BEAKER) 8.3 mg/dL 8.4-10.2 L (test code = 697) EGFR (BEAKER) (test 10 mL/min/1.73 ESTIMA FRANKLIN GFR IS code = 1092) sq m NOT ACCURATE CREATININE CLEARANCE IN PREDICTING GLOMERULAR FILTRATION RATE . ESTIMATED GFR I S NOT APPLICABLE FOR DIALYSIS PATIEN TS. Administrative Aide ID - VICENTE [id number] 06:19:29 Test Item Value Reference Range Interpretation Comments MAGNESIUM (BEAKER) (test code = 2.1 mg/dL 1.6-2.6 627) Administrative Aide ID - VICENTE WCBC W/PLT COUNT & AUTO [id number] 05:37:51 Test Item Value Reference Range Interpretation Comments WHITE BLOOD CELL COUNT (BEAKER) 7.2 K/ L 3.5-10.5 (test code = 775) RED BLOOD CELL COUNT (BEAKER) 3.33 M/ L 4.63-6.08 L (test code = 761) HEMOGLOBIN (BEAKER) (test code = 9.5 GM/DL 13.7-17.5 L 410) HEMATOCRIT (BEAKER) (test code = 31.3 % 40.1-51.0 L 411) MEAN CORPUSCULAR VOLUME (BEAKER) 94.0 fL 79.0-92.2 H (test code = 753) MEAN CORPUSCULAR HEMOGLOBIN 28.5 pg 25.7-32.2 (BEAKER) (test code = 751) MEAN CORPUSCULAR HEMOGLOBIN CONC 30.4 GM/DL 32.3-36.5 L (BEAKER) (test code = 752) RED CELL DISTRIBUTION WIDTH 15.9 % 11.6-14.4 H (BEAKER) (test code = 412) PLATELET COUNT (BEAKER) (test 313 K/CU MM 150-450 code = 756) MEAN [...] (test code = 437) NEUTROPHILS ABSOLUTE COUNT 5.59 K/ L 1.78-5.38 H (BEAKER) (test code = 670) LYMPHOCYTES ABSOLUTE COUNT 1.00 K/ L 1.32-3.57 L (BEAKER) (test code = 414) MONOCYTES ABSOLUTE COUNT (BEAKER) 0.39 K/ L 0.30-0.82 (test code = 415) EOSINOPHILS ABSOLUTE COUNT 0.13 K/ L 0.04-0.54 (BEAKER) (test code = 416) BASOPHILS ABSOLUTE COUNT (BEAKER) 0.04 K/ L 0.01-0.08 (test code = 417) IMMATURE GRANULOCYTES-RELATIVE 1 % 0-1 PERCENT (BEAKER) (test code = 2801) POCT-GLUCOSE [id number] 21:18:33 Test Item Value Reference Range Interpretation Comments POC-GLUCOSE METER 101 mg/dL 70-110 : TESTED A T [facility] 6720 (BEAKER) (test code = [facility], 1538) 659[address]: Administrative Aide/Techni glenis ID = [id number] for DELIA REBOLLEDO SE POCT-GLUCOSE [id number] 17:28:11 Test Item Value Reference Range Interpretation Comments POC-GLUCOSE METER 92 mg/dL 70-110 : TESTED A T [facility] 6720 (BEAKER) (test code = [facility] [employer] [facility], 1538) [address]: Administrative Aide/Techni glenis ID = [id number] for FLAVIO YEN SURGICALLY OBTAINED CULTURE + GRAM [id number] 15:46:13 Test Item Value Reference Interpretation Comments Range CULTURE (BEAKER) MORGANELLA A 4+ Morganel la (test code = 1095) MORGANII morganii Amikacin (test code = S 1) Ampicillin + R Sulbactam (test code = 6) Aztreonam (test code S = 32) Cefepime (test code = S 51) Cefoxitin (test code S = 68) Ceftazidime (test S code = 27) Ceftriaxone (test S code = 52) Ertapenem (test code S = 38) Gentamicin (test code S = 18) Levofloxacin (test S code = 22) Meropenem (test code S = 34) Nitrofurantoin (test R code = 23) Piperacillin + S Tazobactam (test code = 29) Tetracycline (test R code = 2) Tobramycin (test code S = 25) Trimethoprim + R Sulfamethoxazole (test code = 47) CULTURE (BEAKER) STAPHYLOCOCCUS A 4+ Staphy lococcus (test code = 1095) AUREUS aureus Clindamycin (test S code = 10) Erythromycin (test S code = 4) Linezolid (test code S = 40) Nitrofurantoin (test S code = 23) Oxacillin (test code S = 14) Rifampin (test code = S 43) Tetracycline (test S code = 2) Trimethoprim + S Sulfamethoxazole (test code = 47) Vancomycin (test code S = 13) GRAM STAIN RESULT <1+ WBCs (BEAKER) (test code = 1123) GRAM STAIN RESULT <1+ gram negative (BEAKER) (test code = rods 637023) GRAM STAIN RESULT <1+ gram positive (BEAKER) (test code = cocci in clusters 088106) POCT-GLUCOSE [id number] 11:27:57 Test Item Value Reference Range Interpretation Comments POC-GLUCOSE METER 90 mg/dL 70-110 : TESTED A T [facility] 6720 ([facility]) (test code = [facility], 1538) 44145: Administrative Aide/Techni glenis ID = [id number] for WILL IAMS, TYNEKA POCT-GLUCOSE [id number] 08:28:12 Test Item Value Reference Range Interpretation Comments POC-GLUCOSE METER 83 mg/dL 70-110 : TESTED A T [facility] 6720 ([facility]) (test code = [facility], 153) 83771: Administrative Aide/Techni glenis ID = [id number] for WILL IAMS, TYNEKA BASIC METABOLIC [id number] 07:07:24 Test Item Value Reference Range Interpretation Comments SODIUM (BEAKER) 136 meq/L 136-145 (test code = 381) POTASSIUM (BEAKER) 3.9 meq/L 3.5-5.1 (test code = 379) CHLORIDE (BEAKER) 100 meq/L 98-107 (test code = 382) CO2 (BEAKER) (test 27 meq/L 22-29 code = 355) BLOOD UREA NITROGEN 16 mg/dL 7-21 (BEAKER) (test code = 354) CREATININE (BEAKER) 5.23 mg/dL 0.57-1.25 H (test code = 358) GLUCOSE RANDOM 85 mg/dL 70-105 (BEAKER) (test code = 652) CALCIUM (BEAKER) 7.9 mg/dL 8.4-10.2 L (test code = 697) EGFR (BEAKER) (test 12 mL/min/1.73 ESTIMA FRANKLIN GFR IS code = 1092) sq m NOT ACCURATE CREATININE CLEARANCE IN PREDICTING GLOMERULAR FILTRATION RATE . ESTIMATED GFR I S NOT APPLICABLE FOR DIALYSIS PATIEN TS. Administrative Aide ID - [id number] 07:04:37 Test Item Value Reference Range Interpretation Comments MAGNESIUM (BEAKER) (test code = 2.0 mg/dL 1.6-2.6 627) Administrative Aide ID - DBVANCOMYCIN LEVEL, [id number] 06:38:04 Test Item Value Reference Range Interpretation Comments VANCOMYCIN RANDOM (BEAKER) (test 13.3 ug/mL code = 523) Reference Range: No NormalsOperator ID - DBCBC W/PLT COUNT & AUTO [id number] 06:16:11 Test Item Value Reference Range Interpretation Comments WHITE BLOOD CELL COUNT (BEAKER) 5.9 K/ L 3.5-10.5 (test code = 775) RED BLOOD CELL COUNT (BEAKER) 2.98 M/ L 4.63-6.08 L (test code = 761) HEMOGLOBIN (BEAKER) (test code = 8.6 GM/DL 13.7-17.5 L 410) HEMATOCRIT (BEAKER) (test code = 28.1 % 40.1-51.0 L 411) MEAN CORPUSCULAR VOLUME (BEAKER) 94.3 fL 79.0-92.2 H (test code = 753) MEAN CORPUSCULAR HEMOGLOBIN 28.9 pg 25.7-32.2 (BEAKER) (test code = 751) MEAN CORPUSCULAR HEMOGLOBIN CONC 30.6 GM/DL 32.3-36.5 L (BEAKER) (test code = 752) RED CELL DISTRIBUTION WIDTH 16.1 % 11.6-14.4 H (BEAKER) (test code = 412) PLATELET COUNT (BEAKER) (test 291 K/CU MM 150-450 code = 756) MEAN [...] (test code = 437) NEUTROPHILS ABSOLUTE COUNT 4.06 K/ L 1.78-5.38 (BEAKER) (test code = 670) LYMPHOCYTES ABSOLUTE COUNT 1.18 K/ L 1.32-3.57 L (BEAKER) (test code = 414) MONOCYTES ABSOLUTE COUNT (BEAKER) 0.45 K/ L 0.30-0.82 (test code = 415) EOSINOPHILS ABSOLUTE COUNT 0.18 K/ L 0.04-0.54 (BEAKER) (test code = 416) BASOPHILS ABSOLUTE COUNT (BEAKER) 0.03 K/ L 0.01-0.08 (test code = 417) IMMATURE GRANULOCYTES-RELATIVE 1 % 0-1 PERCENT (BEAKER) (test code = 2801) POCT-GLUCOSE [id number] 20:53:27 Test Item Value Reference Range Interpretation Comments POC-GLUCOSE METER 112 mg/dL 70-110 H : TESTED A T [facility] 6720 (BEAKER) (test code = [facility], 153) 80763: Administrative Aide/Techni glenis ID = [id number] for DELIA REBOLLEDO SE POCT-GLUCOSE [id number] 17:10:25 Test Item Value Reference Range Interpretation Comments POC-GLUCOSE METER 125 mg/dL 70-110 H : TESTED A T [facility] 6720 (BEAKER) (test code = [facility], 153) 48105: Administrative Aide/Techni glenis ID = [id number] for ZA VALA, ERANDY POCT-GLUCOSE [id number] 12:32:38 Test Item Value Reference Range Interpretation Comments POC-GLUCOSE METER 89 mg/dL 70-110 : TESTED A T [facility] 6720 (BEAKER) (test code = [facility], 153) 36885: Administrative Aide/Techni glenis ID = [id number] for ZAVA LA, ERANDY TISSUE [id number] 11:29:56Surgical Pathology Report Case: [id number] Authorizing Provider: Chris Looney DPM Collected: 05/01/2021 03:32 PM Ordering Location: [address] Received: 05/02/2021 08:08 AM Service Pathologist: Piper Lao MD Specimen: Soft Tissue, Other, TOP TISSUE LEFT FOOT A. FOOT, LEFT, DEBRIDEMENT:- ACUTE SUPPURATIVE INFLAMMATION INVOLVING DEEP SOFT TISSUE- NEGATIVE FOR MALIGNANCY Signing Pathologist Direct Phone Line: [phone] signed by Piper Lao MD on 05/03/2021 at 11:29 [id number] infectionFoot, leftA. Received fresh labeled with the patient's name, medical record number and "soft tissue, other" is a 2.7 x 2.0 cm healy-brown skin excision excised to a depth of 0.2 cm. The surface of the skin displays a 1.8 x 1.7 x 0.5 cm yellow- healy ulcer that is 0.1 cm from the margin (blue). Humid System Operator sections are submitted in A1.ROLANDO Trotter, THAIS (ASCP)cmPerformed.POCT-GLUCOSE METER 2021-05-03 10:48:10 Test Item Value Reference Range Interpretation Comments POC-GLUCOSE METER 94 mg/dL 70-110 : TESTED A T [facility] 6720 (BEAKER) (test code = BRENDA Prieto [facility], 1538) 989[address]: Administrative Aide/Techni glenis ID = [id number] for АЛЕКСАНДР BLANCO BASIC METABOLIC [id number] 06:32:56 Test Item Value Reference Range Interpretation Comments SODIUM (BEAKER) 137 meq/L 136-145 (test code = 381) POTASSIUM (BEAKER) 4.7 meq/L 3.5-5.1 (test code = 379) CHLORIDE (BEAKER) 100 meq/L 98-107 (test code = 382) CO2 (BEAKER) (test 25 meq/L 22-29 code = 355) BLOOD UREA NITROGEN 33 mg/dL 7-21 H (BEAKER) (test code = 354) CREATININE (BEAKER) 8.38 mg/dL 0.57-1.25 H (test code = 358) GLUCOSE RANDOM 113 mg/dL 70-105 H (BEAKER) (test code = 652) CALCIUM (BEAKER) 8.1 mg/dL 8.4-10.2 L (test code = 697) EGFR (BEAKER) (test 7 mL/min/1.73 ESTIMAT ED GFR IS code = 1092) sq m NOT ACCURATE CREATININE CLEARANCE IN PREDICTING GLOMERULAR FILTRATION RATE . ESTIMATED GFR I S NOT APPLICABLE FOR DIALYSIS PATIEN TS. Administrative Aide ID - PHILIP [id number] 06:32:30 Test Item Value Reference Range Interpretation Comments MAGNESIUM (BEAKER) (test code = 2.1 mg/dL 1.6-2.6 627) Administrative Aide ID - PHILIP GCBC W/PLT COUNT & AUTO [id number] 05:41:11 Test Item Value Reference Range Interpretation Comments WHITE BLOOD CELL COUNT (BEAKER) 7.0 K/ L 3.5-10.5 (test code = 775) RED BLOOD CELL COUNT (BEAKER) 3.21 M/ L 4.63-6.08 L (test code = 761) HEMOGLOBIN (BEAKER) (test code = 9.3 GM/DL 13.7-17.5 L 410) HEMATOCRIT (BEAKER) (test code = 31.5 % 40.1-51.0 L 411) MEAN CORPUSCULAR VOLUME (BEAKER) 98.1 fL 79.0-92.2 H (test code = 753) MEAN CORPUSCULAR HEMOGLOBIN 29.0 pg 25.7-32.2 (BEAKER) (test code = 751) MEAN CORPUSCULAR HEMOGLOBIN CONC 29.5 GM/DL 32.3-36.5 L (BEAKER) (test code = 752) RED CELL DISTRIBUTION WIDTH 16.3 % 11.6-14.4 H (BEAKER) (test code = 412) PLATELET COUNT (BEAKER) (test 310 K/CU MM 150-450 code = 756) MEAN [...] (test code = 437) NEUTROPHILS ABSOLUTE COUNT 5.27 K/ L 1.78-5.38 (BEAKER) (test code = [...] PERCENT (BEAKER) (test code = 2801) POCT-GLUCOSE [id number] 20:37:22 Test Item Value Reference Range Interpretation Comments POC-GLUCOSE METER 130 mg/dL 70-110 H : TESTED A T [facility] 6720 (BEAKER) (test code = [facility], [facility]) 025[address]: Administrative Aide/Techni glenis ID = [id number] for GEORGI SPARKS POCT-GLUCOSE [id number] 17:45:10 Test Item Value Reference Range Interpretation Comments POC-GLUCOSE METER 113 mg/dL 70-110 H : TESTED A T [facility] 6720 (BEAKER) (test code = [facility], [facility]) 73032: Administrative Aide/Techni glenis ID = [id number] for QUINTON RAMIREZ POCT-GLUCOSE [id number] 11:52:12 Test Item Value Reference Range Interpretation Comments POC-GLUCOSE METER 114 mg/dL 70-110 H : TESTED A T [facility] 6720 (BEAKER) (test code = [facility], 153) 69682: Administrative Aide/Techni glenis ID = [id number] for QUINTON RAMIREZ SPIN/CONCENTRATION [id number] 09:39:28 Test Item Value Reference Range Interpretation Comments CONCENTRATION CHARGED (BEAKER) (test Done code = 2657) POCT-GLUCOSE [id number] 08:17:06 Test Item Value Reference Range Interpretation Comments POC-GLUCOSE METER 98 mg/dL 70-110 : TESTED A T [facility] 6720 (BEAKER) (test code = [facility], 1538) 03432: Administrative Aide/Techni glenis ID = [id number] for ULISES GONZALEZ BASIC METABOLIC [id number] 07:47:50 Test Item Value Reference Range Interpretation Comments SODIUM (BEAKER) 136 meq/L 136-145 (test code = 381) POTASSIUM (BEAKER) 4.3 meq/L 3.5-5.1 (test code = 379) CHLORIDE (BEAKER) 101 meq/L 98-107 (test code = 382) CO2 (BEAKER) (test 26 meq/L 22-29 code = 355) BLOOD UREA NITROGEN 28 mg/dL 7-21 H (BEAKER) (test code = 354) CREATININE (BEAKER) 7.26 mg/dL 0.57-1.25 H (test code = 358) GLUCOSE RANDOM 104 mg/dL 70-105 (BEAKER) (test code = 652) CALCIUM (BEAKER) 7.8 mg/dL 8.4-10.2 L (test code = 697) EGFR (BEAKER) (test 8 mL/min/1.73 ESTIMAT ED GFR IS code = 1092) sq m NOT ACCURATE CREATININE CLEARANCE IN PREDICTING GLOMERULAR FILTRATION RATE . ESTIMATED GFR I S NOT APPLICABLE FOR DIALYSIS PATIEN TS. Administrative Aide ID - KEVIN [id number] 07:45:08 Test Item Value Reference Range Interpretation Comments MAGNESIUM (BEAKER) (test code = 2.1 mg/dL 1.6-2.6 627) Administrative Aide ID - KEVIN MCBC W/PLT COUNT & AUTO [id number] 06:26:42 Test Item Value Reference Range Interpretation Comments WHITE BLOOD CELL COUNT (BEAKER) 9.2 K/ L 3.5-10.5 (test code = 775) RED BLOOD CELL COUNT (BEAKER) 3.04 M/ L 4.63-6.08 L (test code = 761) HEMOGLOBIN (BEAKER) (test code = 8.8 GM/DL 13.7-17.5 L 410) HEMATOCRIT (BEAKER) (test code = 28.8 % 40.1-51.0 L 411) MEAN CORPUSCULAR VOLUME (BEAKER) 94.7 fL 79.0-92.2 H (test code = 753) MEAN CORPUSCULAR HEMOGLOBIN 28.9 pg 25.7-32.2 (BEAKER) (test code = 751) MEAN CORPUSCULAR HEMOGLOBIN CONC 30.6 GM/DL 32.3-36.5 L (BEAKER) (test code = 752) RED CELL DISTRIBUTION WIDTH 16.3 % 11.6-14.4 H (BEAKER) (test code = 412) PLATELET COUNT (BEAKER) (test 323 K/CU MM 150-450 code = 756) MEAN PLATELET VOLUME (BEAKER) 9.1 fL 9.4-12.4 L (test code = 754) NUCLEATED RED BLOOD CELLS 0 /100 WBC 0-0 (BEAKER) (test code = 413) NEUTROPHILS RELATIVE PERCENT 81 % (BEAKER) (test code = 429) LYMPHOCYTES RELATIVE PERCENT 10 % (BEAKER) (test code = 430) MONOCYTES RELATIVE PERCENT 6 % (BEAKER) (test code = 431) EOSINOPHILS RELATIVE PERCENT 2 % (BEAKER) (test code = 432) BASOPHILS RELATIVE PERCENT 0 % (BEAKER) (test code = 437) NEUTROPHILS ABSOLUTE COUNT 7.48 K/ L 1.78-5.38 H (BEAKER) (test code = 670) LYMPHOCYTES ABSOLUTE COUNT 0.90 K/ L 1.32-3.57 L (BEAKER) (test code = 414) MONOCYTES ABSOLUTE COUNT (BEAKER) 0.55 K/ L 0.30-0.82 (test code = 415) EOSINOPHILS ABSOLUTE COUNT 0.20 K/ L 0.04-0.54 (BEAKER) (test code = 416) BASOPHILS ABSOLUTE COUNT (BEAKER) 0.04 K/ L 0.01-0.08 (test code = 417) IMMATURE GRANULOCYTES-RELATIVE 1 % 0-1 PERCENT (BEAKER) (test code = 2801) POCT-GLUCOSE [id number] 20:56:49 Test Item Value Reference Range Interpretation Comments POC-GLUCOSE METER 126 mg/dL 70-110 H : TESTED A T [facility] 6720 (BEAKER) (test code = BRENDA RAMIREZ [place], 1538) 56098: Administrative Aide/Techni glenis ID = [id number] for PE RALES, GEORGI RAD, FOOT, MIN 3 VIEWS, [id number] 19:49:00Reason for exam:->Post-operative views s/p left foot I\\T\\D [facility] : 1965 Sex: MFINAL REPORT Left foot dated 05/01/2021 COMPARISON: Same day Comment: Patient is status post transmetatarsal amputation of the left foot and is status post I\\T\\D. There is persistent soft tissue swelling in the remaining left foot. The remaining tarsal, metatarsal bones are stable in appearance. Signed: Prince Betts Verified Date/Time: 05/01/2021 19:49:15 POCT-GLUCOSE [id number] 18:28:47 Test Item Value Reference Range Interpretation Comments POC-GLUCOSE METER 74 mg/dL 70-110 : Notified RN/MD: TESTED (ALEYDA) (test code = AT [facility] [address] [facility] 1538) [facility], 770 30: Administrative Aide/Techni glenis ID = [id number] for JOSHUA HOYT POCT-GLUCOSE [id number] 16:01:52 Test Item Value Reference Range Interpretation Comments POC-GLUCOSE METER 82 mg/dL 70-110 : TESTED A T [facility] 6720 ([facility]) (test code = BRENDA Prieto [facility], 1538) 94198: Administrative Aide/Techni glenis ID = [id number] for Ache e, Josephine RAD, FOOT, MIN 3 VIEWS, [id number] 11:39:00Reason for exam:->Pre op eval, left foot wound infection, prior TMA, [facility]el[facility] 1965 Sex: MFINAL REPORT TECHNIQUE: RAD, FOOT, MIN 3 VIEWS, LEFT INDICATION:Pre op eval, left foot wound infection, prior TMA, eval for osteomyelitis COMPARISON: 03/12/2021. FINDINGS:Prior transmetatarsal amputation of the left foot.. There is mild cortical regularity and resorption of the metatarsals at the site of the amputation, most significant in the fifth digit. There is diffuse soft tissue swelling. Past history stent is present.. IMPRESSION:Status post transmetatarsal amputation with findings suspicious for osteomyelitis at the resection margin, most prominent within the fifth metatarsal.. Signed: Cayetano Bansal MDReport Verified Date/Time: 05/01/2021 11:39:08 POCT-GLUCOSE [id number] 11:38:40 Test Item Value Reference Range Interpretation Comments POC-GLUCOSE METER 88 mg/dL 70-110 : TESTED A T [facility] 6720 (BEAKER) (test code = BRENDA Prieto [facility], 1538) 96403: Administrative Aide/Techni glenis ID = [id number] for JOSHUA HOYT HEPATITIS B SURFACE [id number] 10:46:17 Test Item Value Reference Range Interpretation Comments HEPATITIS B SURFACE ANTIGEN (2) Nonreactive Nonreactive (BEAKER) (test code = 2585) Specimen is considered negative for HBsAg.BASIC METABOLIC [id number] 08:01:04 Test Item Value Reference Range Interpretation Comments SODIUM (BEAKER) 134 meq/L 136-145 L (test code = 381) POTASSIUM (BEAKER) 4.1 meq/L 3.5-5.1 (test code = 379) CHLORIDE (BEAKER) 99 meq/L 98-107 (test code = 382) CO2 (BEAKER) (test 25 meq/L 22-29 code = 355) BLOOD UREA NITROGEN 22 mg/dL 7-21 H (BEAKER) (test code = 354) CREATININE (BEAKER) 6.37 mg/dL 0.57-1.25 H (test code = 358) GLUCOSE RANDOM 116 mg/dL 70-105 H (BEAKER) (test code = 652) CALCIUM (BEAKER) 7.7 mg/dL 8.4-10.2 L (test code = 697) EGFR (BEAKER) (test 9 mL/min/1.73 ESTIMAT ED GFR IS code = 1092) sq m NOT ACCURATE CREATININE CLEARANCE IN PREDICTING GLOMERULAR FILTRATION RATE . ESTIMATED GFR I S NOT APPLICABLE FOR DIALYSIS PATIEN TS. Administrative Aide ID Karan TRENT FC-REACTIVE [id number] 07:59:36 Test Item Value Reference Range Interpretation Comments C-REACTIVE PROTEIN (BEAKER) (test 24.91 mg/dL 0.00-0.50 H code = 676) Administrative Aide ID - MILEY [id number] 07:59:35 Test Item Value Reference Range Interpretation Comments MAGNESIUM (BEAKER) (test code = 2.0 mg/dL 1.6-2.6 627) Administrative Aide ID Karan TRENT FVANCOMYCIN LEVEL, [id number] 07:57:33 Test Item Value Reference Range Interpretation Comments VANCOMYCIN RANDOM (BEAKER) (test 12.5 ug/mL code = 523) Reference Range: No NormalsOperator ID Karan MILEY FCBC W/PLT COUNT & AUTO [id number] 07:45:36 Test Item Value Reference Range Interpretation Comments WHITE BLOOD CELL COUNT (BEAKER) 9.1 K/ L 3.5-10.5 (test code = 775) RED BLOOD CELL COUNT (BEAKER) 3.09 M/ L 4.63-6.08 L (test code = 761) HEMOGLOBIN (BEAKER) (test code = 9.0 GM/DL 13.7-17.5 L 410) HEMATOCRIT (BEAKER) (test code = 29.1 % 40.1-51.0 L 411) MEAN CORPUSCULAR VOLUME (BEAKER) 94.2 fL 79.0-92.2 H (test code = 753) MEAN CORPUSCULAR HEMOGLOBIN 29.1 pg 25.7-32.2 (BEAKER) (test code = 751) MEAN CORPUSCULAR HEMOGLOBIN CONC 30.9 GM/DL 32.3-36.5 L (BEAKER) (test code = 752) RED CELL DISTRIBUTION WIDTH 16.2 % 11.6-14.4 H (BEAKER) (test code = 412) PLATELET COUNT (BEAKER) (test 304 K/CU MM 150-450 code = 756) MEAN PLATELET VOLUME (BEAKER) 8.9 fL 9.4-12.4 L (test code = 754) NUCLEATED RED BLOOD CELLS 0 /100 WBC 0-0 (BEAKER) (test code = 413) NEUTROPHILS RELATIVE PERCENT 85 % (BEAKER) (test code = 429) LYMPHOCYTES RELATIVE PERCENT 7 % (BEAKER) (test code = 430) MONOCYTES RELATIVE PERCENT 7 % (BEAKER) (test code = 431) EOSINOPHILS RELATIVE PERCENT 1 % (BEAKER) (test code = 432) BASOPHILS RELATIVE PERCENT 1 % (BEAKER) (test code = 437) NEUTROPHILS ABSOLUTE COUNT 7.73 K/ L 1.78-5.38 H (BEAKER) (test code = 670) LYMPHOCYTES ABSOLUTE COUNT 0.61 K/ L 1.32-3.57 L (BEAKER) (test code = 414) MONOCYTES ABSOLUTE COUNT (BEAKER) 0.59 K/ L 0.30-0.82 (test code = 415) EOSINOPHILS ABSOLUTE COUNT 0.11 K/ L 0.04-0.54 (BEAKER) (test code = 416) BASOPHILS ABSOLUTE COUNT (BEAKER) 0.05 K/ L 0.01-0.08 (test code = 417) IMMATURE GRANULOCYTES-RELATIVE 0 % 0-1 PERCENT (BEAKER) (test code = 2801) POCT-GLUCOSE [id number] 07:28:05 Test Item Value Reference Range Interpretation Comments POC-GLUCOSE METER 110 mg/dL 70-110 : TESTED Izabela Yuan [facility] 6720 (BEAKER) (test code = [facility], 1538) [address]: Administrative Aide/Techni glenis ID = [id number] for SONALI NEILINJOSHUA SARS-COV2/RT-PCR ([facility])2021-05-01 01:45:27 Test Item Value Reference Range Interpretation Comments SARS-COV2/RT-PCR (test Negative Not Detected, Negative, code = 2908020) See external report for linked test SARS-COV-[address] [facility] ARTURO (test code = 8635214) Negative result for this test determines that [...] 564(g) of the Act.Fact Sheet for Healthcare Providers:https://www.[employer].com/sites/default/files/product/documents/Fact_Shee w_GH_Ykojvvmmz_Vvgg_XQTB-NsH-2.pdfFact Sheet for Healthcare Patients:https://www.[employer].com/sites/default/files/product/ documents/Reng_Xkzwm_Ulvfvsgj_Kzcb_MZNE-GiF-4.pdfPerforming Laboratory:[place] [address] [address], [place] [address]EIFCQ METABOLIC PANEL 2021-04-30 22:45:40 Test Item Value Reference Range Interpretation Comments SODIUM (BEAKER) 139 meq/L 136-145 (test code = 381) POTASSIUM (BEAKER) 4.0 meq/L 3.5-5.1 (test code = 379) CHLORIDE (BEAKER) 101 meq/L 98-107 (test code = 382) CO2 (BEAKER) (test 26 meq/L 22-29 code = 355) BLOOD UREA NITROGEN 19 mg/dL 7-21 (BEAKER) (test code = 354) CREATININE (BEAKER) 5.90 mg/dL 0.57-1.25 H (test code = 358) GLUCOSE RANDOM 133 mg/dL 70-105 H (BEAKER) (test code = 652) CALCIUM (BEAKER) 8.0 mg/dL 8.4-10.2 L (test code = 697) EGFR (BEAKER) (test 10 mL/min/1.73 ESTIMA FRANKLIN GFR IS code = 1092) sq m NOT ACCURATE CREATININE CLEARANCE IN PREDICTING GLOMERULAR FILTRATION RATE . ESTIMATED GFR I S NOT APPLICABLE FOR DIALYSIS PATIEN TS. Administrative Aide ID - [id number] 22:44:04 Test Item Value Reference Range Interpretation Comments PHOSPHORUS (BEAKER) (test code = 4.1 mg/dL 2.3-4.7 604) Administrative Aide ID - BSHEPATIC FUNCTION [id number] 22:44:04 Test Item Value Reference Range Interpretation Comments TOTAL PROTEIN (BEAKER) (test code = 6.3 gm/dL 6.0-8.3 770) ALBUMIN (BEAKER) (test code = 1145) 2.2 g/dL 3.5-5.0 L BILIRUBIN TOTAL (BEAKER) (test code 0.5 mg/dL 0.2-1.2 = 377) BILIRUBIN DIRECT (BEAKER) (test 0.3 mg/dL 0.1-0.5 code = 706) ALKALINE PHOSPHATASE (BEAKER) (test 186 U/L 40-150 H code = 346) AST (SGOT) (BEAKER) (test code = 13 U/L 5-34 353) ALT (SGPT) (BEAKER) (test code = 7 U/L 6-55 347) Administrative Aide ID - [id number] 22:44:03 Test Item Value Reference Range Interpretation Comments MAGNESIUM (BEAKER) (test code = 1.9 mg/dL 1.6-2.6 627) Administrative Aide ID - BSCBC W/PLT COUNT & AUTO [id number] 22:25:18 Test Item Value Reference Range Interpretation Comments WHITE BLOOD CELL COUNT (BEAKER) 10.1 K/ L 3.5-10.5 (test code = 775) RED BLOOD CELL COUNT (BEAKER) 3.34 M/ L 4.63-6.08 L (test code = 761) HEMOGLOBIN (BEAKER) (test code = 9.7 GM/DL 13.7-17.5 L 410) HEMATOCRIT (BEAKER) (test code = 31.5 % 40.1-51.0 L 411) MEAN CORPUSCULAR VOLUME (BEAKER) 94.3 fL 79.0-92.2 H (test code = 753) MEAN CORPUSCULAR HEMOGLOBIN 29.0 pg 25.7-32.2 (BEAKER) (test code = 751) MEAN CORPUSCULAR HEMOGLOBIN CONC 30.8 GM/DL 32.3-36.5 L (BEAKER) (test code = 752) RED CELL DISTRIBUTION WIDTH 16.1 % 11.6-14.4 H (BEAKER) (test code = 412) PLATELET COUNT (BEAKER) (test 337 K/CU MM 150-450 code = 756) MEAN PLATELET VOLUME (BEAKER) 9.2 fL 9.4-12.4 L (test code = 754) NUCLEATED RED BLOOD CELLS 0 /100 WBC 0-0 (BEAKER) (test code = 413) NEUTROPHILS RELATIVE PERCENT 85 % (BEAKER) (test code = 429) LYMPHOCYTES RELATIVE PERCENT 8 % (BEAKER) (test code = 430) MONOCYTES RELATIVE PERCENT 6 % (BEAKER) (test code = 431) EOSINOPHILS RELATIVE PERCENT 1 % (BEAKER) (test code = 432) BASOPHILS RELATIVE PERCENT 0 % (BEAKER) (test code = 437) NEUTROPHILS ABSOLUTE COUNT 8.59 K/ L 1.78-5.38 H (BEAKER) (test code = 670) LYMPHOCYTES ABSOLUTE COUNT 0.77 K/ L 1.32-3.57 L (BEAKER) (test code = 414) MONOCYTES ABSOLUTE COUNT (BEAKER) 0.57 K/ L 0.30-0.82 (test code = 415) EOSINOPHILS ABSOLUTE COUNT 0.08 K/ L 0.04-0.54 (BEAKER) (test code = 416) BASOPHILS ABSOLUTE COUNT (BEAKER) 0.04 K/ L 0.01-0.08 (test code = 417) IMMATURE GRANULOCYTES-RELATIVE 0 % 0-1 PERCENT (BEAKER) (test code = 2801) POCT-GLUCOSE [id number] 21:10:48 Test Item Value Reference Range Interpretation Comments POC-GLUCOSE METER 112 mg/dL 70-110 H : [facility] [place]ER[place] (test code = BRENDA Pri[place], 1538) [id number]: Administrative Aide/Techni glenis ID = [id number] for [employer] CULTURE + SMEAR (NON-SPUTUM)2021-04-26 14:55:54 Test Item Value Reference Range Interpretation Comments CULTURE (BEAKER) (test No acid-fast bacilli code = 1095) isolated in 42 days AFB SMEAR (BEAKER) No acid fast bacilli (test code = 994) seen AFB CULTURE + SMEAR (NON-SPUTUM)2021-04-26 14:55:54 [...] code = 994) seen FUNGUS CULTURE + [id number] 15:59:25 Test Item Value Reference Range Interpretation Comments CULTURE (BEAKER) (test No fungus isolated in code = 1095) 28 days FUNGUS SMEAR (BEAKER) No fungi seen (test code = 1406) FUNGUS CULTURE + [id number] 15:59:25 Test Item Value Reference Range Interpretation Comments CULTURE (BEAKER) (test No fungus isolated in code = 1095) 28 days FUNGUS SMEAR (BEAKER) No fungi seen (test code = 1406) TISSUE [id number] 10:58:22Surgical Pathology Report Case: [id number] Authorizing Provider: Chris Looney DPM Collected: 03/12/2021 10:35 AM Ordering Location: [facility] Received: 03/12/2021 11:03 AM SERVICES Pathologist: Anthony Adams MD Specimen: Metatarsal, Left, Metatarsal Left Foot PART A LEFT FOOT METATARSALS, DEBRIDEMENT:PORTIONS OF BONE WITH CHRONIC OSTEOMYELITIS. Signing Pathologist Direct Phone Line: [phone] signed by Anthony Adams MD on 03/29/2021 at 10:58 [id number], [id number] surgical woundMetatarsal, leftReceived fresh labeled the patient's name, accession number and "left foot metatarsal" are 5 villalba, trabeculated bone fragments with adherent soft tissue ranging from 1.1-2.0 cm in greatest dimension. The specimen is entirely submitted in A1-[id number] following decalcification.THAIS Olmstead, HT (ASCP)performedylWest Los Angeles Memorial Hospital, Department of Pathology, [address] [place] [phone], [facility], Department of Pathology, [address] [place] [address], [facility], [facility] of Pathology, [address] [place] [address], EXLMOG CULTURE + SMEAR 2021-03-26 01:45:40 Test Item Value Reference Range Interpretation Comments CULTURE (BEAKER) (test No fungus isolated in code = 1095) 28 days FUNGUS SMEAR (BEAKER) No fungi seen (test code = 1406) POCT-GLUCOSE [id number] 13:06:28 Test Item Value Reference Range Interpretation Comments POC-GLUCOSE METER 130 mg/dL 70-110 H : TESTED A T [facility] 6720 (BEAKER) (test code = [facility], 1538) 17732: Administrative Aide/Techni glenis ID = [id number] for OJAYE MAGDALENO POCT-GLUCOSE [id number] 13:06:26 Test Item Value Reference Range Interpretation Comments POC-GLUCOSE METER 105 mg/dL 70-110 : TESTED A T [facility] 6720 (BEAKER) (test code = BRENDA RAMIREZ [place], 1538) 94786: Administrative Aide/Techni glenis ID = [id number] for JAYE HAYWOOD [id number] 06:17:33 Test Item Value Reference Range Interpretation Comments FERRITIN (BEAKER) (test code = 1491.23 ng/mL 5.00-275.00 H 361) Administrative Aide ID Karan BROWN MVITAMIN B12 AND [id number] 06:17:33 Test Item Value Reference Range Interpretation Comments VITAMIN B12 (BEAKER) 506 pg/mL 213-816 (test code = 774) FOLATE (BEAKER) 2.80 ng/mL See_Comment L [Automated message] (test code = 362) The system which generated this result transmitted ref erence range: >=7.00. The reference range was not used to interpr et this result as normal/abnormal . Administrative Aide ID Karan BROWN MBASIC METABOLIC [id number] 06:07:45 Test Item Value Reference Range Interpretation [...] S NOT APPLICABLE FOR DIALYSIS PATIEN TS. Administrative Aide ID - KEVIN JOYCELYN, TIBC, % SAT. (WITHOUT FERRITIN)2021-03-21 05:58:24 Test Item Value Reference Range Interpretation Comments IRON (BEAKER) (test code = 547) 48.0 ug/dL 40.0-160.0 TOTAL IRON BINDING CAPACITY 149 ug/dL 250-450 L (BEAKER) (test code = 769) IRON % SATURATION (2) (BEAKER) 32 % 20-55 (test code = 2590) Administrative Aide ID - KEVIN MCBC (HEMOGRAM ONLY)2021-03-21 05:17:50 [...] 0-0 (BEAKER) (test code = 413) POCT-GLUCOSE [id number] 22:42:00 Test Item Value Reference Range Interpretation Comments POC-GLUCOSE METER 116 mg/dL 70-110 H : TESTED A T [facility] 6720 (BEAKER) (test code = BRENDA [place], 1538) 73483: Administrative Aide/Techni glenis ID = [id number] for JOHN GALVEZ POCT-GLUCOSE [id number] 22:41:59 Test Item Value Reference Range Interpretation Comments POC-GLUCOSE METER 68 mg/dL 70-110 L : TESTED A T [facility] 6720 (BEAKER) (test code = [facility], 1538) 30458: Administrative Aide/Techni glenis ID = [id number] for YOKASTA , JOHN POCT-GLUCOSE [id number] 22:41:58 Test Item Value Reference Range Interpretation Comments POC-GLUCOSE METER 63 mg/dL 70-110 L : TESTED A T [facility] 6720 (BEAKER) (test code = [facility], 1538) 44685: Administrative Aide/Techni glenis ID = [id number] for YOKASTA , JOHN POCT-GLUCOSE [id number] 21:56:24 Test Item Value Reference Range Interpretation Comments POC-GLUCOSE METER 58 mg/dL 70-110 L : TESTED A T [facility] 6720 (BEAKER) (test code = [facility], 1538) 12532: Administrative Aide/Techni glenis ID = [id number] for Sona Brock ph POCT-GLUCOSE [id number] 12:31:59 Test Item Value Reference Range Interpretation Comments POC-GLUCOSE METER 110 mg/dL 70-110 : TESTED A T [facility] 6720 (BEAKER) (test code = [facility], 1538) 88786: Administrative Aide/Techni glenis ID = [id number] for Tejal Glass BASIC METABOLIC [id number] 10:16:59 Test Item Value Reference Range Interpretation [...] S NOT APPLICABLE FOR DIALYSIS PATIEN TS. Administrative Aide ID - KEVIN MPOCT-GLUCOSE [id number] 07:57:31 Test Item Value Reference Range Interpretation Comments POC-GLUCOSE METER 77 mg/dL 70-110 : TESTED A T [facility] 6720 (BEAKER) (test code = BRENDA Prieto [place], 1538) 00063: Administrative Aide/Techni glenis ID = [id number] for Tejal Mckinnon CBC (HEMOGRAM ONLY)2021-03-20 05:40:12 [...] 0-0 (BEAKER) (test code = 413) POCT-GLUCOSE [id number] 00:38:45 Test Item Value Reference Range Interpretation Comments POC-GLUCOSE METER 167 mg/dL 70-110 H : TESTED A T [facility] 6720 (BEAKER) (test code = BRENDA Prieto [place], 1538) 70576: Administrative Aide/Techni glenis ID = [id number] for GEORGI SPARKS POCT-GLUCOSE [id number] 00:29:44 Test Item Value Reference Range Interpretation Comments POC-GLUCOSE METER 174 mg/dL 70-110 H : TESTED A T [facility] 6720 (BEAKER) (test code = [facility], 1538) 28353: Administrative Aide/Techni glenis ID = [id number] for GEORGI SPARKS POCT-GLUCOSE [id number] 17:35:25 Test Item Value Reference Range Interpretation Comments POC-GLUCOSE METER 125 mg/dL 70-110 H : TESTED A T [facility] 6720 (BEAKER) (test code = [facility], 1538) 60736: Administrative Aide/Techni glenis ID = [id number] for JOSHUA BEAR POCT-GLUCOSE [id number] 12:37:01 Test Item Value Reference Range Interpretation Comments POC-GLUCOSE METER 101 mg/dL 70-110 : TESTED A T [facility] 6720 (BEAKER) (test code = [facility], 1538) 00734: Administrative Aide/Techni glenis ID = [id number] for JOSHUA BEAR BASIC METABOLIC [id number] 08:42:41 Test Item Value Reference Range Interpretation [...] S NOT APPLICABLE FOR DIALYSIS PATIEN TS. Administrative Aide ID - PEGGY LPOCT-GLUCOSE [id number] 08:39:03 Test Item Value Reference Range Interpretation Comments POC-GLUCOSE METER 66 mg/dL 70-110 L : Notified RN/MD: TESTED (BEAKER) (test code = AT [facility] 6720 [facility], 770 30: Administrative Aide/Techni glenis ID = [id number] for JOSHUA HOYT CBC (HEMOGRAM ONLY)2021-03-19 05:39:39 [...] 0-0 (BEAKER) (test code = 413) POCT-GLUCOSE [id number] 21:39:08 Test Item Value Reference Range Interpretation Comments POC-GLUCOSE METER 130 mg/dL 70-110 H : TESTED A T [facility] 6720 (BEAKER) (test code MARYAM [facility], = 1538) 46359: Administrative Aide/Techni glenis ID = [id number] for Billie Puckett POCT-GLUCOSE [id number] 17:14:40 Test Item Value Reference Range Interpretation Comments POC-GLUCOSE METER 127 mg/dL 70-110 H : TESTED A T [facility] 6720 (BEAKER) (test code = BRENDA Prieto [facility], 1538) 29039: Administrative Aide/Techni glenis ID = [id number] for HU NTER, HIWITHA POCT-GLUCOSE [id number] 13:39:18 Test Item Value Reference Range Interpretation Comments POC-GLUCOSE METER 127 mg/dL 70-110 H : TESTED A T [facility] 6720 (BEAKER) (test code = BRENDA Prieto [facility], 1538) 54824: Administrative Aide/Techni glenis ID = [id number] for HU NTER, HIWITHA POCT-GLUCOSE [id number] 10:24:36 Test Item Value Reference Range Interpretation Comments POC-GLUCOSE METER 78 mg/dL 70-110 : TESTED A T [facility] 6720 (BEAKER) (test code = BRENDA Prieto [facility], 1538) 79277: Administrative Aide/Techni glenis ID = [id number] for LARKIN ER, HIWITHA SARS-COV2/RT-PCR ([facility])2021-03-18 10:04:14 Test Item Value Reference Range Interpretation Comments SARS-COV2/RT-PCR (test Negative Not Detected, Negative, code = 0691095) See external report for linked test SARS-COV-2 PERFORMING LAB [facility] (test code = 0044348) Negative result for this test determines that [...] 564(g) of the Act.Fact Sheet for Healthcare Providers:https://www.Pyreg/sites/default/files/product/documents/Fact_Shee i_YP_Vqmgbqdoa_Ouny_ETEK-WjF-0.pdfFact Sheet for Healthcare Patients:https://www.Pyreg/sites/default/files/product/ documents/Nfkr_Qkvbx_Bzsoyhth_Yoyu_ECRO-KhZ-6.pdfPerforming Laboratory:[facility] [place] [address].[place], [place] [address]XNFMA METABOLIC PANEL 2021-03-18 06:51:57 Test Item Value [...] S NOT APPLICABLE FOR DIALYSIS PATIEN TS. Administrative Aide ID - PIAYA LCBC (HEMOGRAM ONLY)2021-03-18 05:07:35 [...] 0-0 (BEAKER) (test code = 413) POCT-GLUCOSE [id number] 21:43:24 Test Item Value Reference Range Interpretation Comments POC-GLUCOSE METER 118 mg/dL 70-110 H : TESTED A T [facility] 6720 (BEAKER) (test code = [facility], 1538) 48863: Administrative Aide/Techni glenis ID = [id number] for Do minguez, Marquis POCT-GLUCOSE [id number] 16:11:44 Test Item Value Reference Range Interpretation Comments POC-GLUCOSE METER 125 mg/dL 70-110 H : TESTED A T [facility] 6720 (BEAKER) (test code = [facility], 1538) 17384: Administrative Aide/Techni glenis ID = [id number] for Do minguez, Marquis POCT-GLUCOSE [id number] 08:31:47 Test Item Value Reference Range Interpretation Comments POC-GLUCOSE METER 110 mg/dL 70-110 : TESTED A T [facility] 6720 (BEAKER) (test code = BRENDA [place], 1538) 67581: Administrative Aide/Techni glenis ID = [id number] for Marquis Ashford BASIC METABOLIC [id number] 03:34:02 Test Item Value Reference Range Interpretation [...] S NOT APPLICABLE FOR DIALYSIS PATIEN TS. Administrative Aide ID - PIAYA LCBC (HEMOGRAM ONLY)2021-03-17 03:07:49 Test Item Value Reference [...] 0-0 (BEAKER) (test code = 413) POCT-GLUCOSE [id number] 21:31:21 Test Item Value Reference Range Interpretation Comments POC-GLUCOSE METER 152 mg/dL 70-110 H : TESTED A T [facility] 6720 (BEAKER) (test code = [facility], 1538) 80652: Administrative Aide/Techni glenis ID = [id number] for ALLISON DEXTER POCT-GLUCOSE [id number] 17:08:15 Test Item Value Reference Range Interpretation Comments POC-GLUCOSE METER 149 mg/dL 70-110 H : TESTED A T [facility] 6720 (BEAKER) (test code = [facility], 153) 38185: Administrative Aide/Techni glenis ID = [id number] for Reno nettles (pca2)Ethel RAD, CHEST, 1 VIEW, NON [id number] 16:19:00Reason for exam:->PICC PlacementShould this be performed at the bedside?->Yes [facility] 1965 Sex: MFINAL REPORT [...] T [facility] 6720 (BEAKER) (test code = [facility], 1538) 06904: Administrative Aide/Techni glenis ID = [id number] for Reno nettles (pca2)Ethel POCT-GLUCOSE [id number] 07:47:30 Test Item Value Reference Range Interpretation Comments POC-GLUCOSE METER 92 mg/dL 70-110 : TESTED A T [facility] 6720 (BEAKER) (test code = [facility], 1538) 66190: Administrative Aide/Techni glenis ID = [id number] for JessieMarquis schulte POCT-GLUCOSE [id number] 22:56:32 Test Item Value Reference Range Interpretation Comments POC-GLUCOSE METER 85 mg/dL 70-110 : TESTED A T [facility] 6720 (BEAKER) (test code = [facility], 1538) 62231: Administrative Aide/Techni glenis ID = [id number] for Gamal Vickers BLOOD [id number] 18:01:20 Test Item Value Reference Range Interpretation Comments CULTURE (BEAKER) (test No growth in 5 days code = 1095) POCT-GLUCOSE [id number] 16:58:07 Test Item Value Reference Range Interpretation Comments POC-GLUCOSE METER 114 mg/dL 70-110 H : TESTED A T [facility] 6720 (BEAKER) (test code [facility], = 1538) 59753: Administrative Aide/Techni glenis ID = [id number] for Maldonado geller (pca2)August edwina POCT-GLUCOSE [id number] 11:58:05 Test Item Value Reference Range Interpretation Comments POC-GLUCOSE METER 104 mg/dL 70-110 : TESTED A T [facility] 6720 (BEAKER) (test code [facility], = 1538) 48991: Administrative Aide/Techni glenis ID = [id number] for Maldonado geller (pca2)August BASIC METABOLIC [id number] 07:42:37 Test Item Value Reference Range Interpretation [...] S NOT APPLICABLE FOR DIALYSIS PATIEN TS. Administrative Aide ID - EMERSONPOCT-GLUCOSE [id number] 07:01:09 Test Item Value Reference Range Interpretation Comments POC-GLUCOSE METER 95 mg/dL 70-110 : TESTED A T [facility] 6720 (BEAKER) (test code = JAKELESIA Prieto [facility], 1538) 39226: Administrative Aide/Techni glenis ID = [id number] for Billie Puckett CBC (HEMOGRAM ONLY)2021-03-15 06:46:16 [...] 0-0 (BEAKER) (test code = 413) POCT-GLUCOSE [id number] 21:37:31 Test Item Value Reference Range Interpretation Comments POC-GLUCOSE METER 139 mg/dL 70-110 H : TESTED A T [facility] 6720 (BEAKER) (test code [facility], = 1538) 00431: Administrative Aide/Techni glenis ID = [id number] for Billie Puckett POCT-GLUCOSE [id number] 17:09:03 Test Item Value Reference Range Interpretation Comments POC-GLUCOSE METER 116 mg/dL 70-110 H : TESTED A T [facility] 6720 (BEAKER) (test code = [facility], 153) 01287: Administrative Aide/Techni glenis ID = [id number] for HU NTER, HIWITHA POCT-GLUCOSE [id number] 11:53:15 Test Item Value Reference Range Interpretation Comments POC-GLUCOSE METER 178 mg/dL 70-110 H : TESTED A T [facility] 6720 (BEAKER) (test code = [facility], 1538) 25950: Administrative Aide/Techni glenis ID = [id number] for HU NTER, HIWITHA BASIC METABOLIC [id number] 08:11:14 Test Item Value Reference Range Interpretation [...] S NOT APPLICABLE FOR DIALYSIS PATIEN TS. Administrative Aide ID - KEVIN [facility] (HEMOGRAM ONLY)2021-03-14 07:57:41 Test Item Value Reference [...] 0-0 (BEAKER) (test code = 413) POCT-GLUCOSE [id number] 07:06:11 Test Item Value Reference Range Interpretation Comments POC-GLUCOSE METER 134 mg/dL 70-110 H : TESTED A T [facility] 6720 (BEAKER) (test code = BRENDA Prieto [facility], 1538) 57967: Administrative Aide/Techni glenis ID = [id number] for LENNY PATTERSON POCT-GLUCOSE [id number] 21:39:34 Test Item Value Reference Range Interpretation Comments POC-GLUCOSE METER 96 mg/dL 70-110 : TESTED A T [facility] 6720 (BEAKER) (test code = BRENDA Prieto [facility], 1538) 19990: Administrative Aide/Techni glenis ID = [id number] for NICOLE SUH BASIC METABOLIC [id number] 13:31:18 Test Item Value Reference Range Interpretation [...] S NOT APPLICABLE FOR DIALYSIS PATIEN TS. Administrative Aide ID - AAHAMIDCBC (HEMOGRAM ONLY)2021-03-13 13:01:52 Test [...] 0-0 (BEAKER) (test code = 413) POCT-GLUCOSE [id number] 11:49:59 Test Item Value Reference Range Interpretation Comments POC-GLUCOSE METER 107 mg/dL 70-110 : TESTED A T [facility] 6720 (BEAKER) (test code = [facility], 1538) 66544: Administrative Aide/Techni glenis ID = [id number] for HU NTER, HIWITHA POCT-GLUCOSE [id number] 07:10:23 Test Item Value Reference Range Interpretation Comments POC-GLUCOSE METER 120 mg/dL 70-110 H : TESTED A T [facility] 6720 (BEAKER) (test code = [facility], 1538) 37928: Administrative Aide/Techni glenis ID = [id number] for HU NTER, HIWITHA POCT-GLUCOSE [id number] 21:07:28 Test Item Value Reference Range Interpretation Comments POC-GLUCOSE METER 142 mg/dL 70-110 H : TESTED A T [facility] 6720 (BEAKER) (test code = BRENDA Prieto [facility], 1538) 29826: Administrative Aide/Techni glenis ID = [id number] for GEORGI SPARKS POCT-GLUCOSE [id number] 15:44:47 Test Item Value Reference Range Interpretation Comments POC-GLUCOSE METER 103 mg/dL 70-110 : Notified RN/MD: (ALEYDA) (test code = TESTED AT [facility] 6720 1538) MARYAM [facility], 75171: Administrative Aide/Techni glenis ID = [id number] for Aureliano cornejo (contract), Koko adorno RAD, FOOT, MIN 3 VIEWS, [id number] 12:45:00Reason for exam:->[facility] 1965 Sex: MFINAL REPORT [...] Vega Verified Date/Time: 03/12/2021 12:45:50 Reading Location: [facility] [id number] Ortho Consult Reading Room POCT-GLUCOSE [id number] 11:31:28 Test Item Value Reference Range Interpretation Comments POC-GLUCOSE METER 86 mg/dL 70-110 : TESTED A T [facility] 67 (BEAKER) (test code = [facility], 1538) 36122: Administrative Aide/Techni glenis ID = [id number] for ZELDA ORELANA POCT-GLUCOSE [id number] 10:24:39 Test Item Value Reference Range Interpretation Comments POC-GLUCOSE METER 102 mg/dL 70-110 : Notified RN/MD: ([facility]) (test code = TESTED AT [facility] 6720 1538) [facility], 37045: Administrative Aide/Techni glenis ID = [id number] for CA MPOS, RAJ POCT-GLUCOSE [id number] 07:38:53 Test Item Value Reference Range Interpretation Comments POC-GLUCOSE METER 103 mg/dL 70-110 : TESTED A T [facility] 6720 ([facility]) (test code = [facility], 1538) 27069: Administrative Aide/Techni glenis ID = [id number] for Aureliano cornejo (contract)Koko BASIC METABOLIC [id number] 06:53:37 Test Item Value Reference Range Interpretation [...] S NOT APPLICABLE FOR DIALYSIS PATIEN TS. Administrative Aide ID - KEVIN MCBC (HEMOGRAM ONLY)2021-03-12 06:37:53 [...] 0-0 (BEAKER) (test code = 413) POCT-GLUCOSE [id number] 21:19:34 Test Item Value Reference Range Interpretation Comments POC-GLUCOSE METER 115 mg/dL 70-110 H : TESTED A T [facility] 6720 (BEAKER) (test code = [facility], 153) 17306: Administrative Aide/Techni glenis ID = [id number] for DELIA REBOLLEDO SE POCT-GLUCOSE [id number] 17:11:51 Test Item Value Reference Range Interpretation Comments POC-GLUCOSE METER 99 mg/dL 70-110 : TESTED A T [facility] 6720 (BEAKER) (test code = [facility], 153) 79660: Administrative Aide/Techni glenis ID = [id number] for LENNY REVELES POCT-GLUCOSE [id number] 11:53:50 Test Item Value Reference Range Interpretation Comments POC-GLUCOSE METER 118 mg/dL 70-110 H : TESTED A T [facility] 6720 (BEAKER) (test code = [facility], 153) 39313: Administrative Aide/Techni glenis ID = [id number] for LENNY PATTERSON SARS-COV2/RT-PCR ([facility])2021-03-11 09:43:08 Test Item Value Reference Range Interpretation Comments SARS-COV2/RT-PCR (test Negative Not Detected, Negative, code = 8587975) See external report for linked test SARS-COV-[address] [facility] (test code = 8191667) Negative result for this test determines that [...] 564(g) of the Act.Fact Sheet for Healthcare Providers:https://www.[employer]/sites/default/files/product/documents/Fact_Shee b_RE_Cfozttbus_Pbph_JSAV-CfV-5.pdfFact Sheet for Healthcare Patients:https://www.[employer]/sites/default/files/product/ documents/Rmyc_Tawoe_Cwoourab_Hawr_PXLI-NsF-4.pdfPerforming Laboratory:[facility].[place], [place] [address]BDDZN METABOLIC PANEL 2021-03-11 07:54:31 Test Item Value [...] S NOT APPLICABLE FOR DIALYSIS PATIEN TS. Administrative Aide ID - DBPOCT-GLUCOSE [id number] 07:35:32 Test Item Value Reference Range Interpretation Comments POC-GLUCOSE METER 106 mg/dL 70-110 : TESTED A T [facility] 6720 (BEAKER) (test code = BRENDA Prieto [facility], 1538) 06343: Administrative Aide/Techni glenis ID = [id number] for QUINTON RAMIREZ CBC (HEMOGRAM ONLY)2021-03-11 06:57:52 Test Item Value [...] 0-0 (BEAKER) (test code = 413) POCT-GLUCOSE [id number] 21:34:03 Test Item Value Reference Range Interpretation Comments POC-GLUCOSE METER 176 mg/dL 70-110 H : TESTED A T [facility] 6720 (BEAKER) (test code = [facility], 153) 32859: Administrative Aide/Techni glenis ID = [id number] for DELIA REBOLLEDO SE POCT-GLUCOSE [id number] 17:00:57 Test Item Value Reference Range Interpretation Comments POC-GLUCOSE METER 129 mg/dL 70-110 H : TESTED A T [facility] 6720 (BEAKER) (test code = [facility], 153) 06706: Administrative Aide/Techni glenis ID = [id number] for JORGE L CRUZ CBC W/PLT COUNT & AUTO [id number] 16:32:06 Test Item Value Reference Range Interpretation [...] PERCENT (BEAKER) (test code = 2801) POCT-GLUCOSE [id number] 11:45:20 Test Item Value Reference Range Interpretation Comments POC-GLUCOSE METER 147 mg/dL 70-110 H : TESTED Izabela Yuan [facility] 6720 (BEAKER) (test code = BRENDA [place], 1538) 95764: Administrative Aide/Techni glenis ID = [id number] for JORGE L CRUZ POCT-GLUCOSE [id number] 07:38:29 Test Item Value Reference Range Interpretation Comments POC-GLUCOSE METER 132 mg/dL 70-110 H : [facility] (BEAKER) (test code = BRENDA RAM[place]Z [place], 1538) 22990: Administrative Aide/Techni glenis ID = [id number] for QUINTON RAMIREZ BASIC METABOLIC [id number] 06:23:26 Test Item Value Reference Range Interpretation [...] S NOT APPLICABLE FOR DIALYSIS PATIEN TS. Administrative Aide ID - VICENTE WC (HEMOGRAM ONLY)2021-03-10 06:23:17 Test Item Value Reference [...] 0-0 (BEAKER) (test code = 413) POCT-GLUCOSE [id number] 16:57:54 Test Item Value Reference Range Interpretation Comments POC-GLUCOSE METER 159 mg/dL 70-110 H : TESTED A T [facility] 6720 (BEAKER) (test code = [facility], 1538) 37363: Administrative Aide/Techni glenis ID = [id number] for Marquis Ashford POCT-GLUCOSE [id number] 11:38:47 Test Item Value Reference Range Interpretation Comments POC-GLUCOSE METER 115 mg/dL 70-110 H : TESTED A T [facility] 6720 (BEAKER) (test code = [facility], 1538) 72710: Administrative Aide/Techni glenis ID = [id number] for Marquis Ashford BASIC METABOLIC [id number] 10:30:24 Test Item Value Reference Range Interpretation [...] S NOT APPLICABLE FOR DIALYSIS PATIEN TS. Administrative Aide ID - ADMINCBC (HEMOGRAM ONLY)2021-03-09 10:08:14 Test [...] = 413) SURGICALLY OBTAINED CULTURE + GRAM [id number] 08:34:41 Test Item Value Reference Interpretation Comments [...] gram negative (BEAKER) (test code = rods 351887) POCT-GLUCOSE [id number] 07:51:24 Test Item Value Reference Range Interpretation Comments POC-GLUCOSE METER 62 mg/dL 70-110 L : TESTED A T [facility] 6720 (BEAKER) (test code = BRENDA RAMIREZ [place], 1538) 89068: Administrative Aide/Techni glenis ID = [id number] for Marquis Black POCT-GLUCOSE [id number] 21:39:03 Test Item Value Reference Range Interpretation Comments POC-GLUCOSE METER 112 mg/dL 70-110 H : TESTED A T [facility] 6720 (BEAKER) (test code MARYAM [facility], = 1538) 22271: Administrative Aide/Techni glenis ID = [id number] for Kam (co ntractAgueda Ayala POCT-GLUCOSE [id number] 17:12:43 Test Item Value Reference Range Interpretation Comments POC-GLUCOSE METER 127 mg/dL 70-110 H : TESTED A T [facility] 6720 (BEAKER) (test code = BRENDA Prieto [facility], 1538) 22712: Administrative Aide/Techni glenis ID = [id number] for Kamille lesDave TISSUE [id number] 14:43:58Surgical Pathology Report Case: [id number] Authorizing Provider: Chris Looney DPM Collected: 03/05/2021 08:30 AM Ordering Location: [facility] PERIOPERATIVE Received: 03/05/2021 08:49 AM SERVICES Pathologist: Thanh Gilbert MD Specimen: Soft Tissue, Other, Left Foot tissue A. SOFT TISSUE, LEFTFOOT, DEBRIDEMENT: - ACUTE OSTEOMYELITIS - ULCERATION AND NECROSIS OF SOFT TISSUE - VIABLESKIN AND SOFT TISSUE/BONE MARGINS Signing Pathologist Direct Phone Line: [phone] signed by Thanh Gilbert MD on 03/08/2021 at 2:43 [id number] X 1, [id number] surgical woundFoot, leftA. Received fresh labeled with [...] at the margin is yellow, homogenousand trabeculated. Humid System Operator sections are submitted.Section code:A1: Metatarsal margin #1, en face, following decalcification A2: Metatarsal margin #1, en face, following decalcificationA3: Metatarsal margin #1, en face, following decalcificationA4: Metatarsal margin #1, en face, following decalcificationA5: Metatarsal margin #1, en face, following decalcificationA6: Humid System Operator of bone to necrotic soft tissueA7: Humid System Operator of skin with slippage and subcutaneous necrosis to skin margin (b lue), perpendicular sectionNonaea ROLANDO Stone PA ([facility])cmPerformed.TISSUE EXAM 2021-03-08 13:18:31Surgical Pathology Report Case: [id number] Authorizing Provider: Chris Looney DPM Collected: 2021 09:51 AM Ordering Location: [facility] PERIOPERATIVE Received: 2021 11:06 AM SERVICES Pathologist: [...] INFL AMMATION Signing Pathologist Direct Phone Line: [phone] signed by Christy Gilliam MD on 03/08/2021 at 1:18 [id number], [id number], [id number] x 2Nonhealing surgical woundA. Left foot; B. [...] 4.4 x 1.5 cm villalba-brown ulcerative, leathery tyjlsv924% encompassing digits 2, 3, and 4 and [...] skin and soft tissue margins appear viable. Humid System Operator sections are submitted. Ink code: Blue: skin [...] bone margin, following decalcificationB2:remaining half of specimen. MJP/pl [facility]formedB[facility], [facility] of Pathology, [address] [place] [address], MdxsjrSan [facility], [facility] of [facility]ology, [address] [place] [address], DdnknaSan Ramon Regional Medical [facility], Department of Pathology, [address] [place] [address] 64[address], BBIX-GLUCOSE [id number] 12:36:57 Test Item Value Reference Range Interpretation Comments POC-GLUCOSE METER 106 mg/dL 70-110 : TESTED A T [facility] 6720 (BEAKER) (test code = BRENDA Prieto [facility], 1538) 49762: Administrative Aide/Techni glenis ID = [id number] for Reno yoon (mayra2)YogeshEthel SURGICALLY OBTAINED CULTURE + GRAM [id number] 09:05:22 Test Item Value Reference Range Interpretation [...] No organisms seen (BEAKER) (test code = 658912) POCT-GLUCOSE [id number] 08:15:02 Test Item Value Reference Range Interpretation Comments POC-GLUCOSE METER 148 mg/dL 70-110 H : TESTED Izabela T [facility] 6720 (BEAKER) (test code = BRENDA RAMIREZ [place], 1538) 84641: Administrative Aide/Techni glenis ID = [id number] for Reno nettles (pca2)Ethel ANAEROBIC [id number] 07:56:18 Test Item Value Reference Range Interpretation Comments CULTURE (BEAKER) (test No anaerobes isolated code = 1095) ANAEROBIC [id number] 07:55:19 Test Item Value Reference Range Interpretation Comments CULTURE (BEAKER) (test No anaerobes isolated code = 1095) BASIC METABOLIC [id number] 06:54:44 Test Item Value Reference Range Interpretation [...] S NOT APPLICABLE FOR DIALYSIS PATIEN TS. Administrative Aide ID - PEGGY [id number] 06:53:40 Test Item Value Reference Range Interpretation Comments PHOSPHORUS (BEAKER) (test code = 3.6 mg/dL 2.3-4.7 604) Administrative Aide ID - PEGGY LVANCOMYCIN LEVEL, [id number] 06:44:41 Test Item Value Reference Range Interpretation [...] 0-0 (BEAKER) (test code = 413) POCT-GLUCOSE [id number] 21:29:47 Test Item Value Reference Range Interpretation Comments POC-GLUCOSE METER 112 mg/dL 70-110 H : TESTED A T [facility] 6720 (BEAKER) (test code = [facility], 1538) 75979: Administrative Aide/Techni glenis ID = [id number] for GEORGI SPARKS POCT-GLUCOSE [id number] 16:47:29 Test Item Value Reference Range Interpretation Comments POC-GLUCOSE METER 99 mg/dL 70-110 : TESTED A T [facility] 6720 (BEAKER) (test code = [facility], 1538) 20317: Administrative Aide/Techni glenis ID = [id number] for LARKIN ER, HIWITHA POCT-GLUCOSE [id number] 11:50:57 Test Item Value Reference Range Interpretation Comments POC-GLUCOSE METER 118 mg/dL 70-110 H : TESTED A T [facility] 6720 (BEAKER) (test code = BRENDA Prieto [facility], 1538) 53535: Administrative Aide/Techni glenis ID = [id number] for SERGO NTER, HIWITHA VANCOMYCIN LEVEL, [id number] 07:42:17 Test Item Value Reference Range Interpretation Comments VANCOMYCIN RANDOM (BEAKER) (test 20.6 ug/mL code = 523) Reference Range: No NormalsOperator ID - PIAYA LBASIC METABOLIC [id number] 07:30:50 Test Item Value Reference Range Interpretation [...] S NOT APPLICABLE FOR DIALYSIS PATIEN TS. Administrative Aide ID - PHILIP GPOCT-GLUCOSE [id number] 07:24:27 Test Item Value Reference Range Interpretation Comments POC-GLUCOSE METER 114 mg/dL 70-110 H : TESTED A T [facility] 6720 (BEAKER) (test code = BRENDA Prieto [facility], 1538) 91772: Administrative Aide/Techni glenis ID = [id number] for HU NTER, HIWITHA CBC (HEMOGRAM ONLY)2021-03-07 07:11:27 Test Item Value [...] 0-0 (BEAKER) (test code = 413) POCT-GLUCOSE [id number] 21:16:03 Test Item Value Reference Range Interpretation Comments POC-GLUCOSE METER 188 mg/dL 70-110 H : TESTED A T [facility] 6720 (BEAKER) (test code = [facility], [facility]8) 23886: Administrative Aide/Techni glenis ID = [id number] for NICOLE MAR POCT-GLUCOSE [id number] 18:46:10 Test Item Value Reference Range Interpretation Comments POC-GLUCOSE METER 142 mg/dL 70-110 H : TESTED A T [facility] 6720 (BEAKER) (test code = [facility], [facility]) 94093: Administrative Aide/Techni glenis ID = [id number] for HU NTER, HIWITHA [id number] 17:38:55 Test Item Value Reference Range Interpretation Comments PHOSPHORUS (BEAKER) (test code = 2.7 mg/dL 2.3-4.7 604) Administrative Aide ID - BSPOCT-GLUCOSE [id number] 17:27:06 Test Item Value Reference Range Interpretation Comments POC-GLUCOSE METER 142 mg/dL 70-110 H : TESTED A T [facility] 6720 (BEAKER) (test code = [facility], [facility]8) 28249: Administrative Aide/Techni glenis ID = [id number] for Sanjay Honeycuttin POCT-GLUCOSE [id number] 13:21:37 Test Item Value Reference Range Interpretation Comments POC-GLUCOSE METER 182 mg/dL 70-110 H : TESTED A T [facility] 6720 (BEAKER) (test code = [facility], 1538) 25372: Administrative Aide/Techni glenis ID = [id number] for HU NTER, HIWITHA SPIN/CONCENTRATION [id number] 11:56:51 Test Item Value Reference Range Interpretation Comments CONCENTRATION CHARGED (BEAKER) (test Done code = 2657) SPIN/CONCENTRATION [id number] 11:55:44 Test Item Value Reference Range Interpretation Comments CONCENTRATION CHARGED (BEAKER) (test Done code = 2657) [id number] 11:30:22 Test Item Value Reference Range Interpretation Comments ACTIVATED CLOTTING TIME 136 sec : 74 -137 seconds, (BEAKER) (test code = Baseli ne: TESTED AT 441) [facility] [address] [place] [address], 7[address] 30: Administrative Aide/Techni glenis ID = [id number] for CO NROD DUPLECHIAN (V), GERSON POCT-GLUCOSE [id number] 11:18:31 Test Item Value Reference Range Interpretation Comments POC-GLUCOSE METER 161 mg/dL 70-110 H : TESTED A T [facility] 67 (BEAKER) (test code = [facility], 1538) 65870: Administrative Aide/Techni glenis ID = [id number] for CI GIL, ANNA [id number] 09:51:56 Test Item Value Reference Range Interpretation Comments ACTIVATED CLOTTING TIME 175 sec : 74 -137 seconds, (BEAKER) (test code = Baseli ne: TESTED AT 441) [facility] 6720 [facility], 770 30: Administrative Aide/Techni glenis ID = [id number] for HI EMILY, MORELIA [id number] 09:20:33 Test Item Value Reference Range Interpretation Comments ACTIVATED CLOTTING TIME 180 sec : 74 -137 seconds, (BEAKER) (test code = Baseli ne: TESTED AT 441) [address], 770 30: Administrative Aide/Techni glenis ID = [id number] for HI EMILY, MORELIA CBC (HEMOGRAM ONLY)2021-03-06 05:55:50 Test Item Value [...] (BEAKER) (test code = 413) BASIC METABOLIC [id number] 05:46:30 Test Item Value Reference Range Interpretation [...] S NOT APPLICABLE FOR DIALYSIS PATIEN TS. Administrative Aide ID - PEGGY [id number] 05:33:56 Test Item Value Reference Range Interpretation Comments MAGNESIUM (BEAKER) (test code = 2.3 mg/dL 1.6-2.6 627) Administrative Aide ID - PEGGY LPT/[id number] 05:23:15 Test Item Value Reference Range Interpretation Comments PROTIME (ALEYDA) (test 15.4 seconds 11.9-14.2 H code = 759) INR (ALEYDA) (test 1.24 See_Comment [Automat ed code = 370) message] The sy stem which generated this result transmitted reference range : <=5.90. The reference range was not used to interpret this result as normal/abnormal . PARTIAL THROMBOPLASTIN 41.5 seconds 22.5-36.0 H TIME (ALEYDA) (test code = 760) RECOMMENDED COUMADIN/WARFARIN INR THERAPY RANGESSTANDARD DOSE: 2.0 - 3.0 Includes: PROPHYLAXIS forvenous thrombosis, systemic embolization; TREATMENT for venous thrombosis and/or pulmonary embolus.HIGH RISK: Target INR is 2.5-3.5 for patients with mechanical heart valves.POCT-GLUCOSE [id number] 21:09:05 Test Item Value Reference Range Interpretation Comments POC-GLUCOSE METER 166 mg/dL 70-110 H : TESTED A T [place] [address] (ALEYDA) ([facility] = [facility], 153) 40518: Administrative Aide/Techni glenis ID = [id number] for NICOLE MAR POCT-GLUCOSE [id number] 15:59:12 Test Item Value Reference Range Interpretation Comments POC-GLUCOSE METER 183 mg/dL 70-110 H : Notified RN/MD: (ALEYDA) (test code = TESTED AT [place] [address] 1538) [facility], [address]: Administrative Aide/Techni glenis ID = [id number] for ite (contract), Koko ert POCT-GLUCOSE [id number] 13:33:11 Test Item Value Reference Range Interpretation Comments POC-GLUCOSE METER 218 mg/dL 70-110 H : Notified RN/MD: (ALEYDA) (test code = TESTED AT [place] [address] 1538) [facility], [address]: Administrative Aide/Techni glenis ID = [id number] for Wh ite (contract), Koko ert RAD, FOOT, MIN 3 VIEWS, [id number] 12:35:00Reason for exam:->s/p debridementR[facility]CRE[facility] : 1965 Sex: MFINAL REPORT RAD, FOOT, MIN 3 VIEWS, LEFT INDICATION: s/p debridement COMPARISON: None TECHNIQUE: AP, lateral and oblique radiographs of the left ankle FINDINGS/IMPRESSION:Vascular graft overlies the posterior leg. Status post transmetatarsal amputation. No radiographic evidence of osteomyelitis. Signed: Vicki Gaspar Verified Date/Time: 03/05/2021 12:35:35 Reading Location: [facility] Radiology Reading Room POCT-GLUCOSE [id number] 09:02:02 Test Item Value Reference Range Interpretation Comments POC-GLUCOSE METER 124 mg/dL 70-110 H : TESTED A T [facility] 6720 (BEAKER) (test code = BRENDA Prieto [facility], 1538) 26167: Administrative Aide/Techni glenis ID = [id number] for IRENA FOSTER BASIC METABOLIC [id number] 07:18:20 Test Item Value Reference Range Interpretation [...] S NOT APPLICABLE FOR DIALYSIS PATIEN TS. Administrative Aide ID - PHILIP [id number] 06:57:25 Test Item Value Reference Range Interpretation Comments MAGNESIUM (BEIntellecap) (test code = 2.1 mg/dL 1.6-2.6 627) Administrative Aide ID - PHILIP GVANCOMYCIN LEVEL, [id number] 06:55:42 Test Item Value Reference Range Interpretation Comments VANCOMYCIN RANDOM (DosYogures) (test 17.8 ug/mL code = 523) Reference Range: No NormalsOperator ID - PHILIP GPOCT-GLUCOSE [id number] 22:02:43 Test Item Value Reference Range Interpretation Comments POC-GLUCOSE METER 183 mg/dL 70-110 H : TESTED A T [facility] 6720 (DosYogures) (test code = [facility], 153) 25131: Administrative Aide/Techni glenis ID = [id number] for Gi sset (pca2), Guy POCT-GLUCOSE [id number] 17:28:36 Test Item Value Reference Range Interpretation Comments POC-GLUCOSE METER 168 mg/dL 70-110 H : TESTED A T [facility] 6720 (DosYogures) (test code = [facility], 1538) 98172: Administrative Aide/Techni glenis ID = [id number] for Sa ntos, Tejal POCT-GLUCOSE [id number] 12:18:47 Test Item Value Reference Range Interpretation Comments POC-GLUCOSE METER 81 mg/dL 70-110 : TESTED A T [facility] 6720 (DosYogures) (test code = [facility], 1538) 28552: Administrative Aide/Techni glenis ID = [id number] for Ekaterina os, Tejal POCT-GLUCOSE [id number] 08:43:21 Test Item Value Reference Range Interpretation Comments POC-GLUCOSE METER 97 mg/dL 70-110 : TESTED A T [facility] 6720 (DosYogures) (test code = [facility], 1538) 91200: Administrative Aide/Techni glenis ID = [id number] for Judithg ado, Lashawn BASIC METABOLIC [id number] 08:11:50 Test Item Value Reference Range Interpretation [...] S NOT APPLICABLE FOR DIALYSIS PATIEN TS. Administrative Aide ID - PITHIERNO [id number] 08:07:28 Test Item Value Reference Range Interpretation Comments MAGNESIUM (BEAKER) (test code = 2.3 mg/dL 1.6-2.6 627) Administrative Aide ID - PEGGY LSARS-COV2/RT-PCR ([facility])2021-03-04 07:57:00 Test Item Value Reference Range Interpretation Comments SARS-COV2/RT-PCR Negative Negative The SARS-Co V-2 target (test code = nucleic acids a re not 3332843) detected in thi s specimen. Negative result [...] revoked sooner. Fact Sheet for Healthcare Providers: https://www.[employer]/Documents/Xpert%20Xpress%20SARS%20CoV-2/Fact%20Sheets/3023802%20SARS-COV -2%20HEALTHCARE%20PROVIDERS%20FACT%20SHEET.pdf Fact Sheet for Healthcare Patients: https://www.[employer]/Documents/Xpert %20Xpress%20SARS%20CoV-2/Fact%20Sheets/3023801%31NKZT-OIN-6%20PATIENT%20FACT%20 SHEET.pdfCBC (HEMOGRAM ONLY)2021-03-04 05:51:58 Test Item Value [...] 0-0 (BEAKER) (test code = 413) POCT-GLUCOSE [id number] 21:24:41 Test Item Value Reference Range Interpretation Comments POC-GLUCOSE METER 181 mg/dL 70-110 H : TESTED A T [facility] 6720 (BEAKER) (test code = [facility], 1538) 16555: Administrative Aide/Techni glenis ID = [id number] for ALLISON DEXTER POCT-GLUCOSE [id number] 17:08:58 Test Item Value Reference Range Interpretation Comments POC-GLUCOSE METER 149 mg/dL 70-110 H : TESTED A T [facility] 6720 (BEAKER) (test code = [facility], 1538) 96250: Administrative Aide/Techni glenis ID = [id number] for JORGE L CRUZ POCT-GLUCOSE [id number] 12:17:45 Test Item Value Reference Range Interpretation Comments POC-GLUCOSE METER 163 mg/dL 70-110 H : TESTED A T [facility] 6720 (BEAKER) (test code = [facility], 1538) 58507: Administrative Aide/Techni glenis ID = [id number] for JORGE L CRUZ ANAEROBIC [id number] 08:42:20 Test Item Value Reference Range Interpretation Comments CULTURE (BEAKER) (test code A 1+ Prevotella buccae = 1095) POCT-GLUCOSE [id number] 07:27:36 Test Item Value Reference Range Interpretation Comments POC-GLUCOSE METER 133 mg/dL 70-110 H : TESTED A T [facility] 6720 (BEAKER) (test code = [facility], 1538) 56851: Administrative Aide/Techni glenis ID = [id number] for JORGE L CRUZ BASIC METABOLIC [id number] 05:49:24 Test Item Value Reference Range Interpretation [...] S NOT APPLICABLE FOR DIALYSIS PATIEN TS. Administrative Aide ID - PEGGY [id number] 05:38:38 Test Item Value Reference Range Interpretation Comments MAGNESIUM (BEAKER) (test code = 2.1 mg/dL 1.6-2.6 627) Administrative Aide ID - PEGGY LVANCOMYCIN LEVEL, [id number] 05:04:26 Test Item Value Reference Range Interpretation Comments VANCOMYCIN TROUGH (BEAKER) (test 27.7 ug/mL 10.0-20.0 H code = 522) Administrative Aide ID - PEGGY LPOCT-GLUCOSE [id number] 21:02:53 Test Item Value Reference Range Interpretation Comments POC-GLUCOSE METER 126 mg/dL 70-110 H : TESTED A T [facility] 6720 (BEAKER) (test code = [facility], 1538) 57521: Administrative Aide/Techni glenis ID = [id number] for Breanna cy (pca2), Victori a POCT-GLUCOSE [id number] 17:08:07 Test Item Value Reference Range Interpretation Comments POC-GLUCOSE METER 151 mg/dL 70-110 H : TESTED A T [facility] 6720 (BEAKER) (test code = [facility] 3[place], 1538) 04600: Administrative Aide/Techni glenis ID = [id number] for JORGE L CRUZ POCT-GLUCOSE [id number] 07:22:42 Test Item Value Reference Range Interpretation Comments POC-GLUCOSE METER 158 mg/dL 70-110 H : TESTED A T [facility] 6720 (BEAKER) (test code = BRENDA RAMIREZ [place], 1538) 22791: Administrative Aide/Techni glenis ID = [id number] for JORGE L CRUZ BASIC METABOLIC [id number] 06:47:00 Test Item Value Reference Range Interpretation [...] S NOT APPLICABLE FOR DIALYSIS PATIEN TS. Administrative Aide ID - [id number] 06:45:22 Test Item Value Reference Range Interpretation Comments MAGNESIUM (BEAKER) (test code = 2.1 mg/dL 1.6-2.6 627) Administrative Aide ID - DBCBC W/PLT COUNT & AUTO [id number] 04:59:36 Test Item Value Reference Range Interpretation [...] PERCENT (BEAKER) (test code = 2801) POCT-GLUCOSE [id number] 21:08:15 Test Item Value Reference Range Interpretation Comments POC-GLUCOSE METER 148 mg/dL 70-110 H : TESTED Izabela Yuan [facility] 6720 (BEAKER) (test code = BR[place], 1538) 30[address]: Administrative Aide/Techni glenis ID = [id number] for Breanna lopez (pca2)Mary a POCT-GLUCOSE [id number] 16:39:44 Test Item Value Reference Range Interpretation Comments POC-GLUCOSE METER 121 mg/dL 70-110 H : TESTED A T [facility] 6720 (BEAKER) (test code = [facility], 1538) 82688: Administrative Aide/Techni glenis ID = [id number] for JORGE L CRUZ POCT-GLUCOSE [id number] 12:51:13 Test Item Value Reference Range Interpretation Comments POC-GLUCOSE METER 133 mg/dL 70-110 H : TESTED A T [facility] 6720 (BEAKER) (test code = [facility], 1538) 97689: Administrative Aide/Techni glenis ID = [id number] for JORGE L CRUZ POCT-GLUCOSE [id number] 07:46:31 Test Item Value Reference Range Interpretation Comments POC-GLUCOSE METER 180 mg/dL 70-110 H : TESTED A T [facility] 6720 (BEAKER) (test code = [facility], 1538) 27867: Administrative Aide/Techni glenis ID = [id number] for JORGE L CRUZ BLOOD [id number] 06:00:25 Test Item Value Reference Range Interpretation Comments CULTURE (BEAKER) (test No growth in 5 days code = 1095) The specimen volume collected for this blood culture was below the optimum (10 mL per bottle or 20 mL total). Use of lower volumes may adversely affect recovery and/or detection times of some organisms.BLOOD [id number] 06:00:25 Test Item Value Reference Range Interpretation Comments CULTURE (BEAKER) (test No growth in 5 days code = 1095) BASIC METABOLIC [id number] 04:05:26 Test Item Value Reference Range Interpretation [...] S NOT APPLICABLE FOR DIALYSIS PATIEN TS. Administrative Aide ID - [id number] 04:05:06 Test Item Value Reference Range Interpretation Comments MAGNESIUM (BEAKER) (test code = 2.1 mg/dL 1.6-2.6 627) Administrative Aide ID - jrlCBC W/PLT COUNT & AUTO [id number] 03:49:24 Test Item Value Reference Range Interpretation [...] PERCENT (BEAKER) (test code = 2801) POCT-GLUCOSE [id number] 21:58:10 Test Item Value Reference Range Interpretation Comments POC-GLUCOSE METER 165 mg/dL 70-110 H : TESTED A T [facility] 6720 (BEAKER) (test code [facility], = 1538) 25650: Administrative Aide/Techni glenis ID = [id number] for Billie Puckett POCT-GLUCOSE [id number] 17:16:52 Test Item Value Reference Range Interpretation Comments POC-GLUCOSE METER 193 mg/dL 70-110 H : TESTED A T [facility] 6720 (BEAKER) (test code = [facility], 1538) 94578: Administrative Aide/Techni glenis ID = [id number] for JOSHUA BEAR POCT-GLUCOSE [id number] 12:17:07 Test Item Value Reference Range Interpretation Comments POC-GLUCOSE METER 248 mg/dL 70-110 H : TESTED A T [facility] 6720 (BEAKER) (test code = [facility], 1538) 14923: Administrative Aide/Techni glenis ID = [id number] for JOSHUA BEAR SURGICALLY OBTAINED CULTURE + GRAM [id number] 08:13:40 Test Item Value Reference Range Interpretation Comments CULTURE (BEAKER) (test See comment code = 1095) GRAM STAIN RESULT 1+ WBCs (BEAKER) (test code = 1123) GRAM STAIN RESULT 1+ gram negative rods (BEAKER) (test code = 658501) GRAM STAIN RESULT <1+ gram positive rods (BEAKER) (test code = 140367) GRAM STAIN RESULT 1+ gram positive cocci (BEAKER) (test code = in pairs 400699) 4+ Enteric organisms of >2 types4+ Skin floraPOCT-GLUCOSE [id number] 07:44:58 Test Item Value Reference Range Interpretation Comments POC-GLUCOSE METER 185 mg/dL 70-110 H : Notified RN/MD: (BEAKER) (test code = TESTED AT [facility] 5714 5014) [facility], 115[address]: Administrative Aide/Techni glenis ID = [id number] for SONALI CHANELLE JOSHUA BASIC METABOLIC [id number] 04:26:24 Test Item Value Reference Range Interpretation [...] S NOT APPLICABLE FOR DIALYSIS PATIEN TS. Administrative Aide ID - KEVIN [id number] 04:26:06 Test Item Value Reference Range Interpretation Comments MAGNESIUM (BEAKER) (test code = 2.1 mg/dL 1.6-2.6 627) Administrative Aide ID - KEVIN MVANCOMYCIN LEVEL, [id number] 04:25:37 Test Item Value Reference Range Interpretation Comments VANCOMYCIN RANDOM (BEAKER) (test 19.5 ug/mL code = 523) Reference Range: No NormalsOperator ID - PEGGY LCBC W/PLT COUNT & AUTO [id number] 04:12:40 Test Item Value Reference Range Interpretation [...] 417) IMMATURE GRANULOCYTES-RELATIVE 1 % 0-1 PERCENT ([facility]) (test code = 2801) POCT-GLUCOSE [id number] 21:20:50 Test Item Value Reference Range Interpretation Comments POC-GLUCOSE METER 174 mg/dL 70-110 H : TESTED A T [facility] 6720 ([facility]) (test code = [facility], [facility]8) 58062: Administrative Aide/Techni glenis ID = [id number] for ALLISON DEXTER [id number] 16:24:21 Test Item Value Reference Range Interpretation Comments FERRITIN ([facility]) (test code = 3548.12 ng/mL 5.00-275.00 H 361) Administrative Aide ID - EMERSONOperator ID - EMERSONPOCT-GLUCOSE [id number] 13:57:44 Test Item Value Reference Range Interpretation Comments POC-GLUCOSE METER 109 mg/dL 70-110 : TESTED A [place] [address] ([facility]) (test code = [facility], [facility]8) [address]63: Administrative Aide/Techni glenis ID = [id number] for Jose Romeo POCT-GLUCOSE [id number] 12:40:51 Test Item Value Reference Range Interpretation Comments POC-GLUCOSE METER 28 mg/dL 70-110 LL : Notified RN/MD: TESTED ([facility]) (test code = AT [facility] [address] [place] [address]) [facility], 770 30: Administrative Aide/Techni glenis ID = [id number] for Maryann Chadwick (contract)Gera SPIN/CONCENTRATION [id number] 08:26:35 Test Item Value Reference Range Interpretation Comments CONCENTRATION CHARGED ([facility]) (test Done code = 2657) POCT-GLUCOSE [id number] 08:07:45 Test Item Value Reference Range Interpretation Comments POC-GLUCOSE METER 188 mg/dL 70-110 H : Notified RN/MD: ([facility]) (test code = TESTED AT [place] [address] 153) [facility], [address]: Administrative Aide/Techni glenis ID = [id number] for Kiana (contract)Gera BASIC METABOLIC [id number] 07:50:14 Test Item Value Reference Range Interpretation [...] S NOT APPLICABLE FOR DIALYSIS PATIEN TS. Administrative Aide ID - [id number] 07:44:43 Test Item Value Reference Range Interpretation Comments PHOSPHORUS (BEAKER) (test code = 3.9 mg/dL 2.3-4.7 604) Administrative Aide ID - [id number] 07:44:42 Test Item Value Reference Range Interpretation Comments MAGNESIUM (BEAKER) (test code = 2.0 mg/dL 1.6-2.6 627) Administrative Aide ID - ROSIANGCBC W/PLT COUNT & AUTO [id number] 07:10:09 Test Item Value Reference Range Interpretation [...] = 2801) RAD, FOOT, MIN 3 VIEWS, [id number] 23:05:00Reason for exam:->s/p amputationMORNINGSIDE [facility]ENTERName: MAT[facility]W BLACKMAN : 1965 Sex: [...] leg, ankle and foot. Signed: Gurwinder Sparrow MDReport Verified Date/Time: 2021 23:05:03 POCT-GLUCOSE [id number] 21:35:46 Test Item Value Reference Range Interpretation Comments POC-GLUCOSE METER 121 mg/dL 70-110 H : TESTED A T [facility] 6720 (BEAKER) (test code = [facility], 1538) 53245: Administrative Aide/Techni glenis ID = [id number] for NATALIA EMILY, NICOLE POCT-GLUCOSE [id number] 17:10:49 Test Item Value Reference Range Interpretation Comments POC-GLUCOSE METER 93 mg/dL 70-110 : TESTED A T [facility] 6720 (BEAKER) (test code = [facility], 1538) 47745: Administrative Aide/Techni glenis ID = [id number] for LARKIN ER, HIWITHA POCT-GLUCOSE [id number] 12:14:22 Test Item Value Reference Range Interpretation Comments POC-GLUCOSE METER 94 mg/dL 70-110 : TESTED A T [facility] 6720 (BEAKER) (test code = [facility] [facility], 1538[facility] [address]: Administrative Aide/Techni glenis ID = [id number] for LARKIN ER, HIWITHA RAD, FOOT, MIN 3 VIEWS, [id number] 11:05:00Reason for exam:->4th toe wound, concern for osteomyelitisShould this be performed at the bedside?->Yes [facility] : 1965 Sex: [...] MDReport Verified Date/Time: 2021 11:05:06 Reading Location: [facility] Radiology Reading Room Electronically signed by: VICKI GASPAR MD on 2020 11:05 AMRAD, FOOT, MIN 3 VIEWS, [id number] 11:05:00Reason for exam:- >post op[facility] : 1965 Sex: [...] MDReport Verified Date/Time: 2021 11:05:06 Reading Location: [facility] Radiology Reading Room Electronically signed by: VICKI GASPAR MD on 2020 11:05 AMPOCT-GLUCOSE [id number] 10:27:19 Test Item Value Reference Range Interpretation Comments POC-GLUCOSE METER 91 mg/dL 70-110 : TESTED A T [facility] 6720 (BEAKER) (test code = [facility], 1538) 25695: Administrative Aide/Techni glenis ID = [id number] for BRANDEE SINGH POCT-GLUCOSE [id number] 07:29:40 Test Item Value Reference Range Interpretation Comments POC-GLUCOSE METER 91 mg/dL 70-110 : TESTED A T [facility] 6720 (BEAKER) (test code = [facility], 1538) 37926: Administrative Aide/Techni glenis ID = [id number] for LARKIN FLORA AMIWITHIzabela BASIC METABOLIC [id number] 05:56:27 Test Item Value Reference Range Interpretation [...] S NOT APPLICABLE FOR DIALYSIS PATIEN TS. Administrative Aide ID - KEVIN [id number] 05:55:42 Test Item Value Reference Range Interpretation Comments MAGNESIUM (BEAKER) (test code = 1.9 mg/dL 1.6-2.6 627) Administrative Aide ID - KEVIN MCBC W/PLT COUNT & AUTO [id number] 05:14:53 Test Item Value Reference Range Interpretation [...] PERCENT (BEAKER) (test code = 2801) POCT-GLUCOSE [id number] 22:36:57 Test Item Value Reference Range Interpretation Comments POC-GLUCOSE METER 125 mg/dL 70-110 H : TESTED A T [facility] 6720 (BEAKER) (test code = [facility], 1538) 15188: Administrative Aide/Techni glenis ID = [id number] for Jhoan tong (contract)Michael POCT-GLUCOSE [id number] 12:15:59 Test Item Value Reference Range Interpretation Comments POC-GLUCOSE METER 197 mg/dL 70-110 H : TESTED A T [facility] 6720 (BEAKER) (test code = [facility], 1538) 06785: Administrative Aide/Techni glenis ID = [id number] for LENNY PATTERSON [id number] 11:39:34 Test Item Value Reference Range Interpretation Comments PARTIAL THROMBOPLASTIN TIME 49.2 seconds 22.5-36.0 H (BEAKER) (test code = 760) SARS-COV2/RT-PCR ([facility])2021-02-25 08:28:02 Test Item Value Reference Range Interpretation Comments SARS-COV2/RT-PCR Negative Negative The SARS-Co V-2 target (test code = nucleic acids a re not 6352309) detected in thi s specimen. Negative result [...] individuals suspected of CO VID-19 by their [facility] provider. This test has been authorized [...] revoked sooner. Fact Sheet for Healthcare Providers: https://www.[employer]/Documents/Xpert%20Xpress%20SARS%20CoV-2/Fact%20Sheets/302-3802%20SARS-COV -2%20HEALTHCARE%20PROVIDERS%20FACT%20SHEET.pdf Fact Sheet for Healthcare Patients: https://www.[employer]/Documents/Xpert %20Xpress%20SARS%20CoV-2/Fact%20Sheets/302-3801%79ZTBZ-OWQ-2%20PATIENT%20FACT%20 SHEET.pdfPOCT-GLUCOSE [id number] 07:31:41 Test Item Value Reference Range Interpretation Comments POC-GLUCOSE METER 140 mg/dL 70-110 H : TESTED A T [facility] 6720 (ALEYDA) (test code = [facility] RAMIREZ [place], 1538) 35654: Administrative Aide/Techni glenis ID = [id number] for LENNY PATTERSON HEPATITIS B SURFACE [id number] 05:19:14 Test Item Value Reference Range Interpretation Comments HEPATITIS B SURFACE ANTIGEN (2) Nonreactive Nonreactive (ALEYDA) (test code = 2585) Specimen is considered negative for HBsAg.VANCOMYCIN LEVEL, [id number] 05:19:12 Test Item Value Reference Range Interpretation Comments VANCOMYCIN RANDOM (BEAKER) (test 8.4 ug/mL code = 523) Reference Range: No NormalsOperator DANDY ZHANG WBASIC METABOLIC [id number] 05:00:16 Test Item Value Reference Range Interpretation [...] S NOT APPLICABLE FOR DIALYSIS PATIEN TS. Administrative Aide ID Karan ZHANG [id number] 04:54:20 Test Item Value Reference Range Interpretation Comments MAGNESIUM (BEAKER) (test code = 1.9 mg/dL 1.6-2.6 627) Administrative Aide ID Karan ZHANG [id number] 04:31:45 Test Item Value Reference Range Interpretation Comments PARTIAL THROMBOPLASTIN TIME 63.7 seconds 22.5-36.0 H (BEAKER) (test code = 760) CBC W/PLT COUNT & AUTO [id number] 04:26:00 Test Item Value Reference Range Interpretation [...] PERCENT (BEAKER) (test code = 2801) POCT-GLUCOSE [id number] 21:39:29 Test Item Value Reference Range Interpretation Comments POC-GLUCOSE METER 135 mg/dL 70-110 H : TESTED A T [facility] 6720 (BEAKER) (test code [facility], = 1538) 16055: Administrative Aide/Techni glenis ID = [id number] for Kam (co ntrevelia)Agueda [id number] 21:18:22 Test Item Value Reference Range Interpretation Comments PARTIAL THROMBOPLASTIN TIME 52.8 seconds 22.5-36.0 H (BEAKER) (test code = 760) HEPATITIS B SURFACE [id number] 20:25:17 Test Item Value Reference Range Interpretation Comments HEPATITIS B SURFACE ANTIGEN (2) Nonreactive Nonreactive (BEAKER) (test code = 2585) Specimen is considered negative for HBsAg.POCT-GLUCOSE [id number] 17:01:49 Test Item Value Reference Range Interpretation Comments POC-GLUCOSE METER 154 mg/dL 70-110 H : TESTED A T [facility] 6720 (BEAKER) (test code = [facility], 1538) 68459: Administrative Aide/Techni glenis ID = [id number] for Marquis Ashford POCT-GLUCOSE [id number] 12:12:11 Test Item Value Reference Range Interpretation Comments POC-GLUCOSE METER 166 mg/dL 70-110 H : TESTED A T [facility] 6720 (BEAKER) (test code = [facility], 1538) 16757: Administrative Aide/Techni glenis ID = [id number] for Marquis Ashford [id number] 11:11:47 Test Item Value Reference Range Interpretation Comments PARTIAL THROMBOPLASTIN TIME 56.1 seconds 22.5-36.0 H (BEAKER) (test code = 760) POCT-GLUCOSE [id number] 08:02:32 Test Item Value Reference Range Interpretation Comments POC-GLUCOSE METER 224 mg/dL 70-110 H : TESTED A T [facility] 6720 (BEAKER) (test code = [facility], 1538) 70014: Administrative Aide/Techni glenis ID = [id number] for Marquis Ashford BASIC METABOLIC [id number] 04:35:15 Test Item Value Reference Range Interpretation [...] S NOT APPLICABLE FOR DIALYSIS PATIEN TS. Administrative Aide ID Karan ZHANG [id number] 04:31:09 Test Item Value Reference Range Interpretation Comments MAGNESIUM (BEAKER) (test code = 1.9 mg/dL 1.6-2.6 627) Administrative Aide ID Karan ZHANG [id number] 04:03:17 Test Item Value Reference Range Interpretation Comments PARTIAL THROMBOPLASTIN TIME 56.0 seconds 22.5-36.0 H (BEAKER) (test code = 760) PROTHROMBIN [id number] 04:02:14 Test Item Value Reference Range Interpretation Comments PROTIME (BEAKER) 17.0 seconds 11.9-14.2 H (test code = 759) INR (BEAKER) (test 1.40 See_Comment [Automat ed message] code = 370) The system [employer] generated this result transmitted ref erence range: [...] = 2801) CBC W/PLT COUNT & AUTO [id number] 17:42:00 Test Item Value Reference Range Interpretation [...] (test code = 2801) PLATELET AGGREGATION: DRUG [id number] 08:29:00 Test Item Value Reference Range Interpretation Comments ARACHADONIC ACID 7 % 63-89 L RESULT(BEAKER) (test code = 2138) PLATELET AGG DRUG Decreased response to INTERPRETATION (BEAKER) arachidonic acid (test code = 2408) suggests aspirin-like effect. PLATELET AGG DRUG Decreased aggregation INTERPRETATION (BEAKER) with ADP which (test code = 826766) indicates platelet dysfunction that may be due to medication effect, uremia, or other platelet function disorders. Clinical correlation is required. [id number] Brody Gaytan MD (BEAKER) (test code = (electronic 2623) signature) PLATELET COUNT AGG 237 K/CU MM 150-450 (BEAKER) (test code = 2656) ADP (BEAKER) (test code 21 % 62-100 L = 4654) PLATELET RICH 254 k/cu mm 200-300 PLASMA(BEAKER) (test code = 2134) Platelet function studies by aggregation methodology on samples with platelet count <75,000/CU MMare unreliable; platelet function assessment should not be based on a single test.Administrative Aide ID - [id number] B SURFACE [id number] 11:27:00 Test Item Value Reference Range Interpretation Comments HEPATITIS B SURFACE ANTIGEN (2) Nonreactive Nonreactive (BEAKER) (test code = 2585) Specimen is considered negative for HBsAg.BASIC METABOLIC [id number] 11:22:00 Test Item Value Reference Range Interpretation [...] S NOT APPLICABLE FOR DIALYSIS PATIEN TS. Administrative Aide ID - KEVIN MCBC W/PLT COUNT & AUTO [id number] 10:42:00 Test Item Value Reference Range Interpretation [...] 0-1 PERCENT (BEAKER) (test code = 2801) [id number] 19:51:00 Test Item Value Reference Range Interpretation Comments ACTIVATED CLOTTING TIME 136 sec : 74 -137 seconds, (BEAKER) (test code = Baseli ne: TESTED AT 441) [facility] 6720 [facility], [facility] 30: Administrative Aide/Techni glenis ID = [id number] for CHEVY CHAVIRA POCT-GLUCOSE [id number] 19:35:00 Test Item Value Reference Range Interpretation Comments POC-GLUCOSE METER 95 mg/dL 70-110 : TESTED A T [facility] 6720 (BEAKER) (test code = [facility], 153) 64060: Administrative Aide/Techni glenis ID = [id number] for CHEVY DOHERTY [id number] 16:51:00 Test Item Value Reference Range Interpretation Comments ACTIVATED CLOTTING TIME 219 sec : 74 -137 seconds, (BEAKER) (test code = Baseli ne: TESTED AT 441) [facility] 6720 [facility], 770 30: Administrative Aide/Techni glenis ID = [id number] for MORELIA IVAN [id number] 15:13:00 Test Item Value Reference Range Interpretation Comments ACTIVATED CLOTTING TIME 180 sec : 74 -137 seconds, (BEAKER) (test code = Baseli ne: TESTED AT 441) [facility] 6720 [facility], 770 30: Administrative Aide/Techni glenis ID = [id number] for CHARLY YING POCT-GLUCOSE [id number] 14:58:00 Test Item Value Reference Range Interpretation Comments POC-GLUCOSE METER 73 mg/dL 70-110 : TESTED A T [facility] 6720 (BEAKER) (test code = [facility], 1538) 77235: Administrative Aide/Techni glenis ID = [id number] for ANNA SILVERIO POCT-GLUCOSE [id number] 12:36:00 Test Item Value Reference Range Interpretation Comments POC-GLUCOSE METER 76 mg/dL 70-110 : TESTED A T [facility] 6720 (BEAKER) (test code = [facility], 1538) 76090: Administrative Aide/Techni glenis ID = [id number] for ANNA SILVERIO [id number] 11:20:00 Test Item Value Reference Range Interpretation Comments ACTIVATED CLOTTING TIME 235 sec : 74 -137 seconds, (BEAKER) (test code = Baseli ne: TESTED AT 441) [facility] 6720 [facility], 770 30: Administrative Aide/Techni glenis ID = [id number] for MORELIA IVAN [id number] 11:02:00 Test Item Value Reference Range Interpretation Comments ACTIVATED CLOTTING TIME 274 sec : 74 -137 seconds, (BEAKER) (test code = Baseli ne: TESTED AT 441) [facility] 6720 [facility], 770 30: Administrative Aide/Techni glenis ID = [id number] for AMI DIAZ, MORELIA BASIC METABOLIC [id number] 09:00:00 Test Item Value Reference Range Interpretation [...] S NOT APPLICABLE FOR DIALYSIS PATIEN TS. Administrative Aide ID - BSOperator ID - BSCBC (HEMOGRAM [...] 0-0 (BEAKER) (test code = 413) SARS-COV2/RT-PCR ([facility])2020-12-24 18:29:00 Test Item Value Reference Range Interpretation Comments SARS-COV2/RT-PCR (test Negative Not Detected, Negative, code = 6395574) See external report for linked test SARS-COV-[address] [facility] ARTURO (test code = 4213914) Negative result for this test determines that [...] 564(g) of the Act.Fact Sheet for Healthcare Providers:https://www.[employer]/sites/default/files/product/documents/Fact_Shee q_QL_Lqgxafaik_Fnxm_HJNS-TqV-1.pdfFact Sheet for Healthcare Patients:https://www.[employer]/sites/default/files/product/ documents/Xbvh_Mckfz_Inmbufxo_Gjje_XYBI-WiQ-0.pdfPerforming Laboratory:[facility], [place] [address]PLC, FOOT, MIN 3 VIEWS, [id number] 09:56:00Reason for Exam:->Gangrene of both feet [facility] 1965 Sex: MFINAL REPORT [...] MDReport Verified Date/Time: 12/18/2020 09:56:08 Reading Location: [facility] Reading Room [address] [place] [address] RAD, FOOT, MIN 3 VIEWS, [id number] 09:56:00Reason for Exam:->Gangrene of both feet[facility] : 1965 Sex: MFINAL REPORT [...] MDReport Verified Date/Time: 12/18/2020 09:56:08 Reading Location: [facility] Reading Room [address] [place] [address] CT, BRAIN, WITHOUT IV [id number] 16:12:00Unlisted Reason for Exam - Click Yes and Enter Reason Below->No [facility] : 1965 Sex: MFINAL REPORT EXAMINATION: Head CT HISTORY: Head trauma, painCOMP ARISON: Head CT 11/10/2018TECHNIQUE: Multidetector axial images were [...] MDReport Verified Date/Time: 12/17/2020 16:12:05 Reading Location: [facility] Room [address] [place] [address] BLOOD [id number] 19:01:00 Test Item Value Reference Range Interpretation Comments CULTURE (BEAKER) (test No growth in 5 days code = 1095) PROTEIN ELECTROPHORESIS, [id number] 13:58:00 Test Item Value Reference Range Interpretation [...] with diabetes mellitus. No monoclonal bands identified. [id number] Christin Dugan MD (BEAKER) (test code = (electronic signature) 1058) PROTEIN TOTAL SERUM, 6.4 gm/dL 6.0-8.3 SPEP (BEAKER) (test code = 2660) Administrative Aide ID - PITHIERNO HOODOD [id number] 06:00:00 Test Item Value Reference Range Interpretation Comments CULTURE (BEAKER) (test No growth in 5 days code = 1095) POCT-GLUCOSE [id number] 17:32:00 Test Item Value Reference Range Interpretation Comments POC-GLUCOSE METER 93 mg/dL 70-110 : TESTED A T [facility] 6720 (BEAKER) (test code = [facility], 1538) 63154: Administrative Aide/Techni glenis ID = [id number] for Tali Brown HEPATITIS B SURFACE [id number] 14:38:00 Test Item Value Reference Range Interpretation Comments HEPATITIS B SURFACE ANTIGEN (2) Nonreactive Nonreactive (BEAKER) (test code = 2585) Specimen is considered negative for HBsAg.POCT-GLUCOSE [id number] 12:13:00 Test Item Value Reference Range Interpretation Comments POC-GLUCOSE METER 136 mg/dL 70-110 H : TESTED A T [facility] 6720 (BEAKER) (test code = [facility], 1538) 25369: Administrative Aide/Techni glenis ID = [id number] for WI LLIS, AUGUST POCT-GLUCOSE [id number] 08:17:00 Test Item Value Reference Range Interpretation Comments POC-GLUCOSE METER 137 mg/dL 70-110 H : TESTED A T [facility] 6720 (BEAKER) (test code = [facility], 1538) 76358: Administrative Aide/Techni glenis ID = [id number] for WI LLIS, AUGUST BASIC METABOLIC [id number] 05:46:00 Test Item Value Reference Range Interpretation [...] S NOT APPLICABLE FOR DIALYSIS PATIEN TS. Administrative Aide ID - PITHIERNO [id number] 05:21:00 Test Item Value Reference Range Interpretation Comments MAGNESIUM (BEAKER) (test code = 2.1 mg/dL 1.6-2.6 627) Administrative Aide ID - ADRYANTHIERNO LCBC W/PLT COUNT & AUTO [id number] 04:45:00 Test Item Value Reference Range Interpretation [...] PERCENT (BEAKER) (test code = 2801) POCT-GLUCOSE [id number] 20:53:00 Test Item Value Reference Range Interpretation Comments POC-GLUCOSE METER 194 mg/dL 70-110 H : Notified RN/MD: (ALEYDA) (test code = TESTED AT [place] [address]) [facility], [address]: Administrative Aide/Techni glenis ID = [id number] for LAKESHA NANCE POCT-GLUCOSE [id number] 17:10:00 Test Item Value Reference Range Interpretation Comments POC-GLUCOSE METER 113 mg/dL 70-110 H : Notified RN/MD: (ALEYDA) (test code = TESTED AT [place] [address]) [facility], [address]: Administrative Aide/Techni glenis ID = [id number] for Tam WOO POCT-GLUCOSE [id number] 16:35:00 Test Item Value Reference Range Interpretation Comments POC-GLUCOSE METER 54 mg/dL 70-110 L : Notified RN/MD: [facility] (test code = AT [place] [address]) [facility], [facility] 30: Administrative Aide/Techni glenis ID = [id number] for TEJAL GARCIA POCT-GLUCOSE [id number] 16:07:00 Test Item Value Reference Range Interpretation Comments POC-GLUCOSE METER 37 mg/dL 70-110 LL : Notified RN/MD: TESTED (BEAKER) (test code = AT [facility] [address] [facility] 1538) [facility], 770 30: Administrative Aide/Techni glenis ID = [id number] for QUEEN YEN BASIC METABOLIC [id number] 15:53:00 Test Item Value Reference Range Interpretation [...] S NOT APPLICABLE FOR DIALYSIS PATIEN TS. Administrative Aide ID - [id number] 15:50:00 Test Item Value Reference Range Interpretation Comments MAGNESIUM (BEAKER) 2.1 mg/dL 1.6-2.6 Specimen slightly (test code = 627) hemolyzed Administrative Aide ID - DBPOCT-GLUCOSE [id number] 10:59:00 Test Item Value Reference Range Interpretation Comments POC-GLUCOSE METER 200 mg/dL 70-110 H : TESTED A T [facility] 6720 (BEAKER) (test code = [facility], 1538) 09435: Administrative Aide/Techni glenis ID = [id number] for QUEEN KELLEY POCT-GLUCOSE [id number] 08:06:00 Test Item Value Reference Range Interpretation Comments POC-GLUCOSE METER 133 mg/dL 70-110 H : TESTED A T [facility] 6720 (BEAKER) (test code = BRENDA Prieto [facility], 1538) [address]: Administrative Aide/Techni glenis ID = [id number] for QUEEN KELLEY CBC W/PLT COUNT & AUTO [id number] 07:38:00 Test Item Value Reference Range Interpretation [...] PERCENT (BEAKER) (test code = 2801) POCT-GLUCOSE [id number] 21:04:00 Test Item Value Reference Range Interpretation Comments POC-GLUCOSE METER 108 mg/dL 70-110 : TESTED A T [facility] 6720 (BEAKER) (test code = [facility], 153) 56015: Administrative Aide/Techni glenis ID = [id number] for Ab ebe (contract), Lio n POCT-GLUCOSE [id number] 16:57:00 Test Item Value Reference Range Interpretation Comments POC-GLUCOSE METER 188 mg/dL 70-110 H : TESTED A T [facility] 6720 (BEAKER) (test code = [facility], [facility]) [address]96: Administrative Aide/Techni glenis ID = [id number] for AL EVERETTE GARSIA POCT-GLUCOSE [id number] 11:07:00 Test Item Value Reference Range Interpretation Comments POC-GLUCOSE METER 104 mg/dL 70-110 : TESTED A T [facility] 6720 (BEAKER) (test code = [facility], 153) 88449: Administrative Aide/Techni glenis ID = [id number] for So Malcolm prakash POCT-GLUCOSE [id number] 09:12:00 Test Item Value Reference Range Interpretation Comments POC-GLUCOSE METER 148 mg/dL 70-110 H : TESTED A T [facility] 6720 (BEAKER) (test code = [facility], 1538) 89647: Administrative Aide/Techni glenis ID = [id number] for CA CALLY BACH POCT-GLUCOSE [id number] 07:39:00 Test Item Value Reference Range Interpretation Comments POC-GLUCOSE METER 66 mg/dL 70-110 L : TESTED A T [facility] 6720 (BEAKER) (test code = [facility], 1538) 12406: Administrative Aide/Techni glenis ID = [id number] for NADEEM BRIGHT BASIC METABOLIC [id number] 07:30:00 Test Item Value Reference Range Interpretation [...] S NOT APPLICABLE FOR DIALYSIS PATIEN TS. Administrative Aide ID - [id number] 07:12:00 Test Item Value Reference Range Interpretation Comments MAGNESIUM (BEAKER) (test code = 2.1 mg/dL 1.6-2.6 627) Administrative Aide ID - DBCBC W/PLT COUNT & AUTO [id number] 06:26:00 Test Item Value Reference Range Interpretation [...] PERCENT (BEAKER) (test code = 2801) POCT-GLUCOSE [id number] 20:58:00 Test Item Value Reference Range Interpretation Comments POC-GLUCOSE METER 134 mg/dL 70-110 H : TESTED A T [facility] 6720 (BEAKER) (test code = [facility], 1538) 30013: Administrative Aide/Techni glenis ID = [id number] for Etienne Luisa POCT-GLUCOSE [id number] 16:34:00 Test Item Value Reference Range Interpretation Comments POC-GLUCOSE METER 86 mg/dL 70-110 : TESTED A T [facility] 6720 (BEAKER) (test code = [facility], 1538) 844[address]: Administrative Aide/Techni glenis ID = [id number] for QUEEN YEN POCT-GLUCOSE [id number] 13:01:00 Test Item Value Reference Range Interpretation Comments POC-GLUCOSE METER 122 mg/dL 70-110 H : TESTED A T [facility] 6720 (BEAKER) (test code = [facility], 1538) 51472: Administrative Aide/Techni glenis ID = [id number] for QUEEN KELLEY POCT-GLUCOSE [id number] 07:28:00 Test Item Value Reference Range Interpretation Comments POC-GLUCOSE METER 137 mg/dL 70-110 H : TESTED A T [facility] 6720 (BEAKER) (test code = [facility], 1538) 689[address]: Administrative Aide/Techni glenis ID = [id number] for QUEEN KELLEY BASIC METABOLIC [id number] 07:27:00 Test Item Value Reference Range Interpretation [...] S NOT APPLICABLE FOR DIALYSIS PATIEN TS. Administrative Aide ID - EDASIHEMOGLOBIN [id number] 07:26:00 Test Item Value Reference Range Interpretation Comments HEMOGLOBIN A1C (BEAKER) (test code = 7.6 % 4.3-6.1 H 368) [id number] 07:23:00 Test Item Value Reference Range Interpretation Comments MAGNESIUM (BEAKER) (test code = 2.0 mg/dL 1.6-2.6 627) Administrative Aide ID - [id number] 07:23:00 Test Item Value Reference Range Interpretation Comments PHOSPHORUS (BEAKER) (test code = 6.0 mg/dL 2.3-4.7 H 604) Administrative Aide ID - EDASIVANCOMYCIN LEVEL, [id number] 06:35:00 Test Item Value Reference Range Interpretation Comments VANCOMYCIN RANDOM (BEAKER) (test 8.1 ug/mL code = 523) Reference Range: No NormalsOperator ID - EDASICBC W/PLT COUNT & AUTO [id number] 06:03:00 Test Item Value Reference Range Interpretation [...] PERCENT (BEAKER) (test code = 2801) POCT-GLUCOSE [id number] 20:10:00 Test Item Value Reference Range Interpretation Comments POC-GLUCOSE METER 88 mg/dL 70-110 : TESTED A T [facility] 6720 (BEAKER) (test code = [facility], 1538) [address]: Administrative Aide/Techni glenis ID = [id number] for SHAWNA GONZALEZ POCT-GLUCOSE [id number] 17:17:00 Test Item Value Reference Range Interpretation Comments POC-GLUCOSE METER 92 mg/dL 70-110 : TESTED A T [facility] 6720 (BEAKER) (test code = [facility], 1538) 28408: Administrative Aide/Techni glenis ID = [id number] for Brianne jett Malcolm EEG AWAKE AND [id number] 15:12:00Reason for exam:->Encephalopathy/syncope [facility] : 1965 Sex: MNEUROPHYSIOLOGY EEG REPORTEEG Number: [id number]: [id number] OF TEST: 11/22/20DATE OF REPORT: 11/22/20art time: 13:52Stop time: 14:20CPT: [id number]: R56.9 History: 60 yo right handedmale who [...] Stage 2 sleep patterns were not observed. 蟲Hyperventilationwas not performed. PHOTIC STIMULATION: Photic stimulation across a broad frequency range (1-33 Hz) did not induce abnormal waveforms or responses. 𕈥ECG: sinus rhythmIMPRESSION: Abnormal EEG in wakefulness and drowsiness. a. Generalized slowing of the background rhythms, theta range, reactiveCLINICAL CORRELATION: The background slowing as seen in this record indicates the presence of a milddegree of encephalopathy that is non-specific in etiology. There were no focal or lateralizing features, no epileptiform discharges, no electro-clinical or electrographic seizures. 𖻈Shawn Banuelos MD, PhDEpilepsy Attending CT, CHEST, WITHOUT [id number] 12:42:00Unlisted Reason for Exam - Click Yes and Enter Reason Below->YesUnlisted Reason for Exam->[facility] : 1965 Sex: MFINAL REPORT [...] and both lower lobes. Signed: Prince Betts Verified Date/Time: 11/22/2020 12:42:23 Reading Location: [facility] C013Y CT Body Reading Room POCT-GLUCOSE [id number] 11:17:00 Test Item Value Reference Range Interpretation Comments POC-GLUCOSE METER 107 mg/dL 70-110 : TESTED A T [facility] 6720 (BEAKER) (test code = [place], 1538) [address]: Administrative Aide/Techni glenis ID = [id number] for CESAR WEINER BASIC METABOLIC [id number] 09:18:00 Test Item Value Reference Range Interpretation [...] S NOT APPLICABLE FOR DIALYSIS PATIEN TS. Administrative Aide ID - PEGGY LHEMOGLOBIN [id number] 09:15:00 Test Item Value Reference Range Interpretation Comments HEMOGLOBIN A1C (BEAKER) (test code = 7.7 % 4.3-6.1 H 368) VANCOMYCIN LEVEL, [id number] 09:10:00 Test Item Value Reference Range Interpretation Comments VANCOMYCIN RANDOM (BEAKER) (test 10.6 ug/mL code = 523) Reference Range: No NormalsOperator ID - PEGGY LPOCT-GLUCOSE [id number] 07:38:00 Test Item Value Reference Range Interpretation Comments POC-GLUCOSE METER 172 mg/dL 70-110 H : TESTED A T [facility] 6720 (BEAKER) (test code = [place], 1538) [address]: Administrative Aide/Techni glenis ID = [id number] for CESAR WEINER BASIC METABOLIC [id number] 04:43:00 Test Item Value Reference Range Interpretation [...] S NOT APPLICABLE FOR DIALYSIS PATIEN TS. Administrative Aide ID - PITHIERNO [id number] 04:33:00 Test Item Value Reference Range Interpretation Comments MAGNESIUM (BEAKER) (test code = 2.4 mg/dL 1.6-2.6 627) Administrative Aide ID - PITHIERNO LCBC W/PLT COUNT & AUTO [id number] 04:08:00 Test Item Value Reference Range Interpretation [...] PERCENT (BEAKER) (test code = 2801) POCT-GLUCOSE [id number] 00:29:00 Test Item Value Reference Range Interpretation Comments POC-GLUCOSE METER 180 mg/dL 70-110 H : TESTED A T [facility] 6720 (BEAKER) (test code = [place], 1538) [address]: Administrative Aide/Techni glenis ID = [id number] for [place] BRUMFIELDTU XR hand 3+ views [id number] 02:39:20Severe erosive changes of middle finger PIP joint with asymmetric erosion of ulnar condyle of P1 andresultant severe ulnar deviation deformity. Mild erosive changes of index finger PIP joint with fragmentation of P1 head and mild radial deviation deformity of PIP jointUT [id number] 14:55:00 Test Item Value Reference Range Interpretation Comments SURG (test code = SURG) --------RUN DATE: 08/02/20 [facility] PAGE 1 RUN TIME: 1455 Specimen Inquiry RUN USER: INTERFACE --------PATIENT: MATTHEW BLACKMAN LOC: [place] U #: [id number] AGE/SX: 55/M ROOM: RE08/01/20[facility] DR: Vitaly Cheek MD : 69 BED: DIS: STATUS: DEP SDC TLOC: -------- SPEC #: [id number] RECD: 08/01/20 STATUS: KRYSTLE REQ #: [id number] ARI: 08/01/[address]: Vitaly Cheek MD ENTERED: 08/01/20 SP TYPE: SURG OTHR DR: Jorge Lemos MD ORDERED: SURG PATH LVL 4 COPIES TO: Jorge Lemos MD [address] [facility] [address] [place] [address] Vitaly Cheek MD [address] [place] [address] HISTOLOGY: TISSUE ID BLK PCS TING LEV PROCEDURE DISPOSITION ____ ___ ___ ___ ASCENDING COLON A 1 2 PROCEDURES: SURG PATH LVL 4 (08/01/20-1102) TISSUES: A. ASCENDING COLON - ASCENDING COLON POLYP CLINICAL HISTORY SCREENING FOR MALIGNANT NEOPLASM - Z12.11; Z01.818 CPT CODES CPT CODE(S): 44304 , , , , , , FINAL [...] A2 and A3. ba/nr Grossing performed at [facility] Pathology, [address] [place] [address], [address], CONTINUED ON NEXT PAGE --------RUN DATE: 08/02/20 [facility] PAGE 2 RUN TIME: 1455 Specimen Inquiry RUN USER: INTERFACE --------SPEC #: [facility]:[id number] PATIENT: MATTHEW BLACMKAN #[id number] (Continued) GROSS DESCRIPTION (Continued) [place], [place] [address]. Willow Worker: Zuhair Webb M.D. MICROSCOPIC DESCRIPTION Ascending colon polyp. Sections demonstrate colonic mucosa with glands demonstrating crowded, hyperchromatic, pseudostratified nuclei. No evidence of high-grade dysplasia or malignancy is seen. Signed SIGNATURE ON FILE Juan Vargas Tam 08/02/20 1455 -------- END OF REPORT GLUCOSE BEDSIDE [id number] 09:26:00 Test Item Value Reference Range Interpretation Comments GLUCOSE BEDSIDE TESTING (test code 198 mg/dL 70-110 H = GLUBED) [id number] 07:58:00 Test Item Value Reference Range Interpretation Comments POTASSIUM (test code = K) 4.9 mmol/L 3.4-5.0 N BASIC METABOLIC [id number] 11:52:00 Test Item Value Reference Range Interpretation [...] 9.3 MG/DL 8.5-10.1 N COVID 19 INHOUSE [id number] 11:43:00 Test Item Value Reference Range Interpretation Comments COVID 19 INHOUSE AG NEGATIVE Negative Per manu facturer, (test code = negative result s should [id number]) be treated aspr esumptive and, if inconsi [...] Spec Comments: PRE OPComments to Phleb: PATPROTHROMBIN [id number] 11:29:00 Test Item Value Reference Range Interpretation Comments PT PATIENT (test code = PTP) 10.9 SECONDS 9.3-12.9 N INTERNATIONAL NORMAL RATIO 0.97 INR Unit 0.8-1.2 N (test code = INR) THROMBOPLASTIN TIME [id number] 11:29:00 Test Item Value Reference Range Interpretation Comments THROMBOPLASTIN TIME PARTIAL 32.7 SECONDS 26-35 N (test code = PTT) CBC W/AUTO [id number] 11:17:00 Test Item Value Reference Range Interpretation [...] CRITERIA = MDIFF) MYOCARD IMAGING, MULTI, PHARM, [id number] 16:38:00FINAL REPORT PROCEDURE: MYOCARDIAL PERFUSION SPECT IMAGING (Rest/Stress)CPT CODE: 19403 INDICATION: Evaluation in advance of renal transplant CARDIOVASCULAR PROFILE:CAD History: Known coronary artery disease, coronary stent 2016, aortocoronary bypass, Sherine 17, 2019Symptoms: NoneRisk Factors: Diabetes, hypertension, obesity, hyperlipidemia, stroke, [...] MDReport Verified Date/Time: 03/31/2019 16:38:15 Reading Location: [address] Reading Room POCT-GLUCOSE [id number] 11:51:00 Test Item Value Reference Range Interpretation Comments POC-GLUCOSE METER 136 mg/dL 70-110 H TESTED AT [facility] 6720 (BEAKER) (test code = [facility] 1538) [address] POCT-GLUCOSE [id number] 08:41:00 Test Item Value Reference Range Interpretation Comments POC-GLUCOSE METER 157 mg/dL 70-[address] [facility] 6720 (BEAKER) (test code = [facility] 1538) [address] POCT-GLUCOSE [id number] 06:47:00 Test Item Value Reference Range Interpretation Comments POC-GLUCOSE METER 130 mg/dL 70-110 H TESTED AT [place] [id number] (BEAKER) (test code = [facility] 1538) [address] BASIC METABOLIC [id number] 05:20:00 Test Item Value Reference Range Interpretation [...] PATIEN TS. CBC W/PLT COUNT & AUTO [id number] 04:42:00 Test Item Value Reference Range Interpretation [...] PERCENT (BEAKER) (test code = 2801) POCT-GLUCOSE [id number] 19:39:00 Test Item Value Reference Range Interpretation Comments POC-GLUCOSE METER 88 mg/dL 70-[address] [facility] 6720 (BEAKER) (test code = [place] [address] 1538) BASIC METABOLIC [id number] 15:34:00 Test Item Value Reference Range Interpretation [...] PATIEN TS. CBC W/PLT COUNT & AUTO [id number] 15:20:00 Test Item Value Reference Range Interpretation [...] PERCENT (BEAKER) (test code = 2801) POCT-GLUCOSE [id number] 12:47:00 Test Item Value Reference Range Interpretation Comments POC-GLUCOSE METER 140 mg/dL 70-110 H TESTED AT [place] [address] ([facility]) (test code = [facility] 1538) [address] POCT-GLUCOSE [id number] 08:21:00 Test Item Value Reference Range Interpretation Comments POC-GLUCOSE METER 107 mg/dL 70-110 TESTED AT [place] [address] ([facility]) (test code = [facility] 1538) [address] POCT-GLUCOSE [id number] 22:25:00 Test Item Value Reference Range Interpretation Comments POC-GLUCOSE METER 97 mg/dL 70-110 TESTED AT [place] [address] ([facility]) (test code = [facility] [address] 1538) POCT-GLUCOSE [id number] 18:02:00 Test Item Value Reference Range Interpretation Comments POC-GLUCOSE METER 264 mg/dL 70-110 H TESTED AT [place] [address] ([facility]) (test code = [facility] 1538) [address] EEG AWAKE AND [id number] 12:26:00Reason for exam:->EncephalopathyDATE OF TEST: 11-11-2018 DATE OF REPORT: 11-11-2018 EEG: BT 19-1114 Start time: 9:31AM Stop time: 9:54AM ICD-10: R41.82 CPT Code: 60013 HISTORY: 53 year old male with CAD [...] recorded. Umu Logan M.D. Neurophysiology Attending POCT-GLUCOSE [id number] 10:29:00 Test Item Value Reference Range Interpretation Comments POC-GLUCOSE METER 164 mg/dL 70-[address] [facility] 6720 (BEAKER) (test code = BRENDA Prieto [facility] 1538) [address] BASIC METABOLIC [id number] 05:28:00 Test Item Value Reference Range Interpretation [...] PATIEN TS. CBC W/PLT COUNT & AUTO [id number] 04:59:00 Test Item Value Reference Range Interpretation [...] PERCENT (BEAKER) (test code = 2801) POCT-GLUCOSE [id number] 21:43:00 Test Item Value Reference Range Interpretation Comments POC-GLUCOSE METER 158 mg/dL 70-110 H [facility] [place] [address] [facility] 1538) [address] POCT-GLUCOSE [id number] 20:10:00 Test Item Value Reference Range Interpretation Comments POC-GLUCOSE METER 132 mg/dL 70-110 H TESTED AT [place] [address] ([facility]) (test code = [facility] 1538) [address] BASIC METABOLIC [id number] 17:58:00 Test Item Value Reference Range Interpretation [...] PATIEN TS. CBC W/PLT COUNT & AUTO [id number] 17:00:00 Test Item Value Reference Range Interpretation [...] (test code = 2801) CT, BRAIN, WITHOUT [id number] 14:50:00Reason for exam:->decreased alertnessWhat is the patient's [...] MDReport Verified Date/Time: 11/10/2018 14:50:39 Reading Location: [facility] C013V Neuro Reading Room BLOOD GAS, [id number] 13:34:00 Test Item Value Reference Range Interpretation [...] mmol/L -2.0-3.0 code = 704) PATIENT TEMPERATURE ([facility]) (test 37.0 C code = 1818) POCT-GLUCOSE [id number] 09:04:00 Test Item Value Reference Range Interpretation Comments POC-GLUCOSE METER 108 mg/dL 70-110 TESTED AT [place] [address] ([facility]) (test code = [facility] 1538) [address] POCT-GLUCOSE [id number] 03:53:00 Test Item Value Reference Range Interpretation Comments POC-GLUCOSE METER 114 mg/dL 70-110 H TESTED AT [place] [address] ([facility]) (test code = [facility] 1538) [address] POCT-GLUCOSE [id number] 20:13:00 Test Item Value Reference Range Interpretation Comments POC-GLUCOSE METER 246 mg/dL 70-110 H TESTED AT [place] [address] ([facility]) (test code = [facility] 1538) [address] POCT-GLUCOSE [id number] 20:06:00 Test Item Value Reference Range Interpretation Comments POC-GLUCOSE METER 198 mg/dL 70-110 H TESTED AT [place] [address] ([facility]) (test code = [facility] 1538) [address] [id number] 16:20:00 Test Item Value Reference Range Interpretation Comments POTASSIUM (BEAKER) (test code = 4.1 meq/L 3.5-5.1 379) Call Nephrology for > 5.2BLOOD GAS, [id number] 16:07:00 Test Item Value Reference Range Interpretation [...] (test code = 1819) 32.0 % POCT-GLUCOSE [id number] 15:58:00 Test Item Value Reference Range Interpretation Comments POC-GLUCOSE METER 182 mg/dL 70-[address] [facility] 6720 (BEAKER) (test code = JAKETX Conner [place] 1538) [address] POCT-GLUCOSE [id number] 15:58:00 Test Item Value Reference Range Interpretation Comments POC-GLUCOSE METER 124 mg/dL 70-110 H TESTED AT [place] [address] (BEAKER) (test code = [facility] [place] 1538) [address] [id number] 12:51:00 Test Item Value Reference Range Interpretation Comments POTASSIUM (BEAKER) (test code = 3.4 meq/L 3.5-5.1 L 379) Call Nephrology for > 5.2BLOOD GAS, [id number] 12:39:00 Test Item Value Reference Range Interpretation [...] (BEAKER) (test code = 1819) 36.0 % [id number] 10:39:00 Test Item Value Reference Range Interpretation Comments FERRITIN (BEAKER) (test code = 1987 ng/mL 5-275 H 361) POCT-GLUCOSE [id number] 10:38:00 Test Item Value Reference Range Interpretation Comments POC-GLUCOSE METER 116 mg/dL 70-[address] [facility] 6720 (BEAKER) (test code = [facility] [place] 1538) [address] IRON, TIBC, % SAT. (WITHOUT FERRITIN)2018-11-09 10:10:00 Test Item Value Reference Range Interpretation Comments IRON (BEAKER) (test code = 547) 33.0 ug/dL 40.0-160.0 L TOTAL IRON BINDING CAPACITY 174 ug/dL 250-450 L (BEAKER) (test code = 769) IRON % SATURATION (2) (BEAKER) 19 % 20-55 L (test code = 2590) [id number] 09:58:00 Test Item Value Reference Range Interpretation Comments POTASSIUM (BEAKER) (test code = 4.9 meq/L 3.5-5.1 379) Call Nephrology for > [id number] 08:15:00 Test Item Value Reference Range Interpretation Comments POTASSIUM (BEAKER) (test code = 5.4 meq/L 3.5-5.1 H 379) Call Nephrology for > 5.2BLOOD GAS, [id number] 07:57:00 Test Item Value Reference Range Interpretation [...] 40.0 % RAD, CHEST, 1 VIEW, NON [id number] 07:53:00while patient is intubated or has chest [...] MDReport Verified Date/Time: 11/09/2018 07:53:31 Reading Location: [facility] Radiology Reading Room POCT-GLUCOSE [id number] 07:10:00 Test Item Value Reference Range Interpretation Comments POC-GLUCOSE METER 118 mg/dL 70-110 H TESTED AT [place] [address] ([facility]) (test code = [place] 1538) [address] POCT-GLUCOSE [id number] 06:27:00 Test Item Value Reference Range Interpretation Comments POC-GLUCOSE METER 115 mg/dL 70-110 H TESTED AT [place] [address] ([facility]) (test code = BR[place] 1538) [address] [id number] 06:20:00 Test Item Value Reference Range Interpretation Comments ACTIVATED CLOTTING TIME 109 sec TEST ED AT [place] [address] ([facility]) (test code = BRENDA Prieto [place] 441) [address] [id number] 06:20:00 Test Item Value Reference Range Interpretation Comments ACTIVATED CLOTTING TIME 417 sec TEST ED AT [place] [address] ([facility]) (test code = JAKENE R [place] 441) [address] [id number] 06:20:00 Test Item Value Reference Range Interpretation Comments ACTIVATED CLOTTING TIME 461 sec TEST ED AT [place] [address] ([facility]) (test code = JAKENE R [place] 441) [address] [id number] 06:20:00 Test Item Value Reference Range Interpretation Comments ACTIVATED CLOTTING TIME 516 sec TEST ED AT [place] [address] ([facility]) (test code = JAKENE R [place] 441) [address] [id number] 06:19:00 Test Item Value Reference Range Interpretation Comments ACTIVATED CLOTTING TIME 494 sec TEST ED AT [place] [address] ([facility]) (test code = JAKELESIA Prieto [place] 441) [address] [id number] 06:19:00 Test Item Value Reference Range Interpretation Comments ACTIVATED CLOTTING TIME 378 sec TEST ED AT [place] [address] ([facility]) (test code = BRENDA Prieto [facility] 441) [address] LACTIC ACID, [id number] 06:14:00 Test Item Value Reference Range Interpretation Comments LACTATE BLOOD 0.9 mmol/L 0.5-2.2 Specimen sligh tly ARTERIAL (2) (BEAKER) hemoly zed (test code = 2874) [id number] 06:12:00 Test Item Value Reference Range Interpretation Comments POTASSIUM (BEAKER) (test code = 5.5 meq/L 3.5-5.1 H 379) Call Nephrology for > 5.2OXYGEN SATURATION, [id number] 05:54:00 Test Item Value Reference Range Interpretation Comments O2 SATURATION (MEASURED) (BEAKER) 91.7 % (test code = 1455) BLOOD GAS, [id number] 05:54:00 Test Item Value Reference Range Interpretation [...] (test code = 1819) 50.0 % POCT-GLUCOSE [id number] 05:18:00 Test Item Value Reference Range Interpretation Comments POC-GLUCOSE METER 127 mg/dL 70-110 H TESTED AT [place] [address] (BEAKER) (test code = BRENDA Prieto [place] 1538) [address] POCT-GLUCOSE [id number] 04:30:00 Test Item Value Reference Range Interpretation Comments POC-GLUCOSE METER 191 mg/dL 70-110 H TESTED AT [place] [address] ([facility]) (test code = BRENDA Prieto [facility] 1538) [address] POCT-GLUCOSE [id number] 04:30:00 Test Item Value Reference Range Interpretation Comments POC-GLUCOSE METER 320 mg/dL 70-110 H Verify wit h Lab ([facility]) (test code = draw/T ESTED AT [place] [address]) [address] [place] [address] POCT-GLUCOSE [id number] 04:30:00 Test Item Value Reference Range Interpretation Comments POC-GLUCOSE METER 187 mg/dL 70-110 H TESTED AT [place] [address] ([facility]) (test code = BRENDA Prieto [facility] 1538) [address] POCT-GLUCOSE [id number] 04:30:00 Test Item Value Reference Range Interpretation Comments POC-GLUCOSE METER 132 mg/dL 70-110 H TESTED AT [place] [address] ([facility]) (test code = BRENDA Prieto [place] [address]78) [address] BASIC METABOLIC [id number] 04:27:00 Test Item Value Reference Range Interpretation [...] DIALYSIS PATIEN TS. Call Nephrology for > [id number] 04:08:00 Test Item Value Reference Range Interpretation Comments POTASSIUM (BEAKER) (test code = 5.2 meq/L 3.5-5.1 H 379) Call Nephrology for > [id number] 04:08:00 Test Item Value Reference Range Interpretation Comments MAGNESIUM (BEAKER) (test code = 2.1 mg/dL 1.6-2.6 627) Call Nephrology for > [id number] 04:08:00 Test Item Value Reference Range Interpretation Comments PHOSPHORUS (BEAKER) (test code = 4.0 mg/dL 2.3-4.7 604) Call Nephrology for > 5.2CBC W/PLT COUNT & AUTO [id number] 03:51:00 Test Item Value Reference Range Interpretation [...] 0-1 PERCENT (BEAKER) (test code = 2801) CALCIUM, [id number] 03:48:00 Test Item Value Reference Range Interpretation Comments CALCIUM IONIZED (BEAKER) (test 1.23 mmol/L 1.12-1.27 code = 698) PH, BLOOD (BEAKER) (test code = 7.32 1810) BLOOD GAS, [id number] 03:48:00 Test Item Value Reference Range Interpretation [...] (BEAKER) (test code = 1819) 50.0 % [id number] 02:28:00 Test Item Value Reference Range Interpretation Comments POTASSIUM (BEAKER) (test code = 5.9 meq/L 3.5-5.1 H 379) Call Nephrology for > 5.2BLOOD GAS, [id number] 02:07:00 Test Item Value Reference Range Interpretation [...] (test code = 1819) 44.0 % POTASSIUM-STAT [id number] 00:09:00 Test Item Value Reference Range Interpretation Comments POTASSIUM (BEAKER) (test code = 5.8 meq/L 3.6-5.5 H 379) BLOOD GAS, [id number] 00:04:00 Test Item Value Reference Range Interpretation [...] (test code = 1819) 50.0 % GLUCOSE-STAT [id number] 00:04:00 Test Item Value Reference Range Interpretation Comments GLUCOSE RANDOM (BEAKER) (test code 133 mg/dL 70-110 H = 652) HGB/HCT (H&H) - STAT [id number] 00:04:00 Test Item Value Reference Range Interpretation Comments HEMOGLOBIN (BEAKER) (test code = 11.1 g/dL 13.0-16.8 L 410) HEMATOCRIT (BEAKER) (test code = 33.0 % 40.0-50.0 L 411) SODIUM NA-STAT [id number] 00:02:00 Test Item Value Reference Range Interpretation Comments SODIUM (BEAKER) (test code = 381) 136 meq/L 135-148 POCT-GLUCOSE [id number] 00:01:00 Test Item Value Reference Range Interpretation Comments POC-GLUCOSE METER 131 mg/dL 70-110 H TESTED AT [place] [address] (BEAKER) (test code = BRENDA Prieto [facility] 1538) [address] POCT-GLUCOSE [id number] 00:01:00 Test Item Value Reference Range Interpretation Comments POC-GLUCOSE METER 117 mg/dL 70-110 H [facility] [place] [address] [facility] (test code = [facility] Conner [facility] 1538) [address] POCT-GLUCOSE [id number] 00:01:00 Test Item Value Reference Range Interpretation Comments POC-GLUCOSE METER 119 mg/dL 70-110 H TESTED AT [place] [address] ([facility]) (test code = [facility] Conner [facility] 1538) [address] BASIC METABOLIC [id number] 23:15:00 Test Item Value Reference Range Interpretation [...] S NOT APPLICABLE FOR DIALYSIS PATIEN TS. [id number] 23:14:00 Test Item Value Reference Range Interpretation Comments MAGNESIUM (BEAKER) (test code = 2.1 mg/dL 1.6-2.6 627) LACTIC ACID, [id number] 23:11:00 Test Item Value Reference Range Interpretation Comments LACTATE BLOOD ARTERIAL (2) 1.0 mmol/L 0.5-2.2 (BEAKER) (test code = 2874) BLOOD GAS, [id number] 22:57:00 Test Item Value Reference Range Interpretation [...] (test code = 1819) 50.0 % GLUCOSE-STAT [id number] 22:57:00 Test Item Value Reference Range Interpretation Comments GLUCOSE RANDOM (BEAKER) (test code 126 mg/dL 70-110 H = 652) HGB/HCT (H&H) - STAT [id number] 22:57:00 Test Item Value Reference Range Interpretation Comments HEMOGLOBIN (BEAKER) (test code = 11.2 g/dL 13.0-16.8 L 410) HEMATOCRIT (BEAKER) (test code = 33.0 % 40.0-50.0 L 411) SODIUM NA-STAT [id number] 22:54:00 Test Item Value Reference Range Interpretation Comments SODIUM (BEAKER) (test code = 381) 138 meq/L 135-148 POTASSIUM-STAT [id number] 22:54:00 Test Item Value Reference Range Interpretation Comments POTASSIUM (BEAKER) (test code = 5.4 meq/L 3.6-5.5 379) SODIUM NA-STAT [id number] 21:58:00 Test Item Value Reference Range Interpretation Comments SODIUM (BEAKER) (test code = 381) 138 meq/L 135-148 POTASSIUM-STAT [id number] 21:58:00 Test Item Value Reference Range Interpretation Comments POTASSIUM (BEAKER) (test code = 4.6 meq/L 3.6-5.5 379) BLOOD GAS, [id number] 21:58:00 Test Item Value Reference Range Interpretation [...] (test code = 1819) 30.0 % GLUCOSE-STAT [id number] 21:58:00 Test Item Value Reference Range Interpretation Comments GLUCOSE RANDOM (BEAKER) (test code 121 mg/dL 70-110 H = 652) HGB/HCT (H&H) - STAT [id number] 21:58:00 Test Item Value Reference Range Interpretation Comments HEMOGLOBIN (BEAKER) (test code = 11.3 g/dL 13.0-16.8 L 410) HEMATOCRIT (BEAKER) (test code = 33.0 % 40.0-50.0 L 411) POCT-GLUCOSE [id number] 21:02:00 Test Item Value Reference Range Interpretation Comments POC-GLUCOSE METER 133 mg/dL 70-[address] [facility] 6720 (BEAKER) (test code = BRENDA [place] 153) [address] SODIUM NA-STAT [id number] 20:38:00 Test Item Value Reference Range Interpretation Comments SODIUM (BEAKER) (test code = 381) 136 meq/L 135-148 POTASSIUM-STAT [id number] 20:38:00 Test Item Value Reference Range Interpretation Comments POTASSIUM (BEAKER) (test code = 4.4 meq/L 3.6-5.5 379) BLOOD GAS, [id number] 20:38:00 Test Item Value Reference Range Interpretation [...] (test code = 1819) 40.0 % GLUCOSE-STAT [id number] 20:38:00 Test Item Value Reference Range Interpretation Comments GLUCOSE RANDOM (BEAKER) (test code 124 mg/dL 70-110 H = 652) HGB/HCT (H&H) - STAT [id number] 20:38:00 Test Item Value Reference Range Interpretation Comments HEMOGLOBIN (BEAKER) (test code = 10.9 g/dL 13.0-16.8 L 410) HEMATOCRIT (BEAKER) (test code = 32.0 % 40.0-50.0 L 411) POCT-GLUCOSE [id number] 20:17:00 Test Item Value Reference Range Interpretation Comments POC-GLUCOSE METER 139 mg/dL 70-110 H TESTED AT [place] [address] (BEAKER) (test code = BR[place]IRE[place] 1538) [address] POCT-GLUCOSE [id number] 20:17:00 Test Item Value Reference Range Interpretation Comments POC-GLUCOSE METER 154 mg/dL 70-110 H TESTED AT [place] [address] (BEAKER) (test code = BR[place] 1538) [address] POCT-GLUCOSE [id number] 20:17:00 Test Item Value Reference Range Interpretation Comments POC-GLUCOSE METER 169 mg/dL 70-110 H TESTED AT [place] [address] (BEAKER) (test code = BR[place] 1538) [address] [id number] 19:51:00 Test Item Value Reference Range Interpretation [...] 2 hours after IV magnesium replacement.BLOOD GAS, [id number] 19:29:00 Test Item Value Reference Range Interpretation [...] (test code = 1819) 60.0 % GLUCOSE-STAT [id number] 19:29:00 Test Item Value Reference Range Interpretation Comments GLUCOSE RANDOM (BEAKER) (test code 142 mg/dL 70-110 H = 652) HGB/HCT (H&H) - STAT [id number] 19:29:00 Test Item Value Reference Range Interpretation Comments HEMOGLOBIN (BEAKER) (test code = 11.3 g/dL 13.0-16.8 L 410) HEMATOCRIT (BEAKER) (test code = 33.0 % 40.0-50.0 L 411) SODIUM NA-STAT [id number] 19:28:00 Test Item Value Reference Range Interpretation Comments SODIUM (BEAKER) (test code = 381) 138 meq/L 135-148 POTASSIUM-STAT [id number] 19:28:00 Test Item Value Reference Range Interpretation Comments POTASSIUM (BEAKER) (test code = 4.2 meq/L 3.6-5.5 379) BASIC METABOLIC [id number] 16:25:00 Test Item Value Reference Range Interpretation [...] S NOT APPLICABLE FOR DIALYSIS PATIEN TS. [id number] 16:22:00 Test Item Value Reference Range Interpretation Comments MAGNESIUM (BEAKER) 2.3 mg/dL 1.6-2.6 Specimen slightly (test code = 627) hemolyzed [id number] 16:22:00 Test Item Value Reference Range Interpretation Comments PHOSPHORUS (BEAKER) 3.3 mg/dL 2.3-4.7 Specimen slightly (test code = 604) hemolyzed LACTIC ACID, [id number] 15:52:00 Test Item Value Reference Range Interpretation Comments LACTATE BLOOD 1.0 mmol/L 0.5-2.2 Specimen sligh tly ARTERIAL (2) (BEAKER) hemoly zed (test code = 2874) [id number] 15:48:00 Test Item Value Reference Range Interpretation [...] mechanical heart valves.CBC W/PLT COUNT & AUTO [id number] 15:31:00 Test Item Value Reference Range Interpretation [...] (BEAKER) (test code = 2801) OXYGEN SATURATION, [id number] 15:30:00 Test Item Value Reference Range Interpretation Comments O2 SATURATION (MEASURED) (BEAKER) 90.0 % (test code = 1455) BLOOD GAS, [id number] 15:30:00 Test Item Value Reference Range Interpretation [...] 100.0 % RAD, CHEST, 1 VIEW, NON [id number] 15:29:00Reason for exam:->Status post CV Surgery post [...] No acute osseous abnormality. Signed: Werner Cantu [facility] Verified Date/Time: 11/08/2018 15:29:07 Reading Location: [facility] Reading Room MBOELASTOGRAPH (TEG)2018-11-08 14:44:00 Test [...] 55.0-65.0 L (test code = 1413) PROTHROMBIN [id number] 13:56:00 Test Item Value Reference Range Interpretation [...] INR is2.5-3.5 for patients wiht mechanical heart valves.[id number] 13:56:00 Test Item Value Reference Range Interpretation Comments FIBRINOGEN LEVEL (BEAKER) (test 449 mg/dl 225-434 H code = 658) [id number] 13:56:00 Test Item Value Reference Range Interpretation Comments PARTIAL THROMBOPLASTIN TIME 30.5 seconds 22.5-36.0 (BEAKER) (test code = 760) PLATELET [id number] 13:49:00 Test Item Value Reference Range Interpretation Comments PLATELET COUNT (BEAKER) (test 106 K/CU MM 150-450 L code = 756) BLOOD GAS, [id number] 13:44:00 Test Item Value Reference Range Interpretation [...] (test code = 1819) 100.0 % GLUCOSE-STAT [id number] 13:44:00 Test Item Value Reference Range Interpretation Comments GLUCOSE RANDOM (BEAKER) (test code 176 mg/dL 70-110 H = 652) HGB/HCT (H&H) - STAT [id number] 13:44:00 Test Item Value Reference Range Interpretation Comments HEMOGLOBIN (BEAKER) (test code = 9.3 g/dL 13.0-16.8 L 410) HEMATOCRIT (BEAKER) (test code = 27.0 % 40.0-50.0 L 411) CALCIUM, [id number] 13:44:00 Test Item Value Reference Range Interpretation Comments CALCIUM IONIZED (BEAKER) (test 1.28 mmol/L 1.12-1.27 H code = 698) PH, BLOOD (BEAKER) (test code = 7.36 1810) SODIUM NA-STAT [id number] 13:43:00 Test Item Value Reference Range Interpretation Comments SODIUM (BEAKER) (test code = 381) 137 meq/L 135-148 POTASSIUM-STAT [id number] 13:43:00 Test Item Value Reference Range Interpretation Comments POTASSIUM (BEAKER) (test code = 5.0 meq/L 3.6-5.5 379) BLOOD GAS, [id number] 13:28:00 Test Item Value Reference Range Interpretation [...] code = 1819) 80.0 % SODIUM NA-STAT [id number] 13:28:00 Test Item Value Reference Range Interpretation Comments SODIUM (BEAKER) (test code = 381) 139 meq/L 135-148 GLUCOSE-STAT [id number] 13:28:00 Test Item Value Reference Range Interpretation Comments GLUCOSE RANDOM (BEAKER) (test code 194 mg/dL 70-110 H = 652) HGB/HCT (H&H) - STAT [id number] 13:28:00 Test Item Value Reference Range Interpretation Comments HEMOGLOBIN (BEAKER) (test code = 10.1 g/dL 13.0-16.8 L 410) HEMATOCRIT (BEAKER) (test code = 30.0 % 40.0-50.0 L 411) POTASSIUM-STAT [id number] 13:23:00 Test Item Value Reference Range Interpretation Comments POTASSIUM (BEAKER) (test code = 5.5 meq/L 3.6-5.5 379) BLOOD GAS, [id number] 12:53:00 Test Item Value Reference Range Interpretation [...] code = 1819) 100.0 % SODIUM NA-STAT [id number] 12:53:00 Test Item Value Reference Range Interpretation Comments SODIUM (BEAKER) (test code = 381) 130 meq/L 135-148 L GLUCOSE-STAT [id number] 12:53:00 Test Item Value Reference Range Interpretation Comments GLUCOSE RANDOM (BEAKER) (test code 231 mg/dL 70-110 H = 652) HGB/HCT (H&H) - STAT [id number] 12:53:00 Test Item Value Reference Range Interpretation Comments HEMOGLOBIN (BEAKER) (test code = 8.4 g/dL 13.0-16.8 L 410) HEMATOCRIT (BEAKER) (test code = 25.0 % 40.0-50.0 L 411) POTASSIUM-STAT [id number] 12:53:00 Test Item Value Reference Range Interpretation Comments POTASSIUM (BEAKER) (test code = 6.0 meq/L 3.6-5.5 HH 379) BLOOD GAS, [id number] 12:28:00 Test Item Value Reference Range Interpretation [...] code = 1819) 65.0 % SODIUM NA-STAT [id number] 12:28:00 Test Item Value Reference Range Interpretation Comments SODIUM (BEAKER) (test code = 381) 131 meq/L 135-148 L POTASSIUM-STAT [id number] 12:28:00 Test Item Value Reference Range Interpretation Comments POTASSIUM (BEAKER) (test code = 6.0 meq/L 3.6-5.5 HH 379) GLUCOSE-STAT [id number] 12:28:00 Test Item Value Reference Range Interpretation Comments GLUCOSE RANDOM (BEAKER) (test code 220 mg/dL 70-110 H = 652) HGB/HCT (H&H) - STAT [id number] 12:28:00 Test Item Value Reference Range Interpretation Comments HEMOGLOBIN (BEAKER) (test code = 8.6 g/dL 13.0-16.8 L 410) HEMATOCRIT (BEAKER) (test code = 25.0 % 40.0-50.0 L 411) BLOOD GAS, [id number] 11:39:00 Test Item Value Reference Range Interpretation [...] code = 1819) 65.0 % SODIUM NA-STAT [id number] 11:39:00 Test Item Value Reference Range Interpretation Comments SODIUM (BEAKER) (test code = 381) 132 meq/L 135-148 L POTASSIUM-STAT [id number] 11:39:00 Test Item Value Reference Range Interpretation Comments POTASSIUM (BEAKER) (test code = 5.7 meq/L 3.6-5.5 H 379) GLUCOSE-STAT [id number] 11:39:00 Test Item Value Reference Range Interpretation Comments GLUCOSE RANDOM (BEAKER) (test code 217 mg/dL 70-110 H = 652) HGB/HCT (H&H) - STAT [id number] 11:39:00 Test Item Value Reference Range Interpretation Comments HEMOGLOBIN (BEAKER) (test code = 7.6 g/dL 13.0-16.8 L 410) HEMATOCRIT (BEAKER) (test code = 22.0 % 40.0-50.0 L 411) PLATELET AGGREGATION: FUNCTION [id number] 11:26:00 Test Item Value Reference Range Interpretation Comments WEAK ADP 46 % 60-91 L RESULT(BEAKER) (test code = 2135) PLATELET FUNCTION 40-49% indicates SCREEN INTERP moderate platelet (BEAKER) (test code = dysfunction 2173) [id number] Brody Gaytan MD (BEAKER) (test code = (electronic signature) 8130) PLATELET COUNT AGG 236 K/CU MM 150-450 (BEAKER) (test code = 7203) Platelet Function Screen results may be falsely low with platelet counts<100,000/cu mm.for patients on clopidogrel in past two weeksfor patients on clopidogrel in past two weeksfor patients on clopidogrel in past two weeksPLATELET AGGREGATION: FUNCTION [id number] 11:25:00 Test Item Value Reference Range Interpretation Comments WEAK ADP 97 % 60-91 H RESULT(BEAKER) (test code = 2135) PLATELET FUNCTION 60-100% indicates SCREEN INTERP (BEAKER) normal platelet (test code = 2173) function [id number] Brody Gaytan MD (BEAKER) (test code = (electronic signature) 1032) PLATELET COUNT AGG 206 K/CU MM 150-450 (BEAKER) (test code = 9970) Platelet Function Screen results may be falsely low with platelet counts<100,000/cu mm.SODIUM NA-STAT [id number] 09:03:00 Test Item Value Reference Range Interpretation Comments SODIUM (BEAKER) (test code = 381) 135 meq/L 135-148 POTASSIUM-STAT [id number] 09:03:00 Test Item Value Reference Range Interpretation Comments POTASSIUM (BEAKER) (test code = 4.1 meq/L 3.6-5.5 379) BLOOD GAS, [id number] 09:03:00 Test Item Value Reference Range Interpretation [...] (test code = 1819) 100.0 % GLUCOSE-STAT [id number] 09:03:00 Test Item Value Reference Range Interpretation Comments GLUCOSE RANDOM (BEAKER) (test code 146 mg/dL 70-110 H = 652) HGB/HCT (H&H) - STAT [id number] 09:03:00 Test Item Value Reference Range Interpretation Comments HEMOGLOBIN (BEAKER) (test code = 10.2 g/dL 13.0-16.8 L 410) HEMATOCRIT (BEAKER) (test code = 30.0 % 40.0-50.0 L 411) POCT-GLUCOSE [id number] 07:40:00 Test Item Value Reference Range Interpretation Comments POC-GLUCOSE METER 205 mg/dL 70-[address] [facility] 6720 (BEAKER) (test code = [place] 1538) [address] BASIC METABOLIC [id number] 07:21:00 Test Item Value Reference Range Interpretation [...] S NOT APPLICABLE FOR DIALYSIS PATIEN TS. [id number] 07:11:00 Test Item Value Reference Range Interpretation Comments PHOSPHORUS (BEAKER) (test code = 4.6 mg/dL 2.3-4.7 604) [id number] 07:11:00 Test Item Value Reference Range Interpretation Comments MAGNESIUM (BEAKER) (test code = 1.8 mg/dL 1.6-2.6 627) [id number] 07:01:00 Test Item Value Reference Range Interpretation [...] mechanical heart valves.CBC W/PLT COUNT & AUTO [id number] 06:55:00 Test Item Value Reference Range Interpretation [...] = 2801) RAD, CHEST, 1 VIEW, NON [id number] 01:36:00Reason for exam:->pre opShould this be performed [...] an acute osseous abnormality. Signed: Chris Meier Verified Date/Time: 11/08/2018 01:36:48 Reading Location: [address] Reading Room [id number] 22:17:00 Test Item Value Reference Range Interpretation Comments PARTIAL THROMBOPLASTIN TIME 96.5 seconds 22.5-36.0 H (BEAKER) (test code = 760) PROTHROMBIN [id number] 22:15:00 Test Item Value Reference Range Interpretation [...] is2.5-3.5 for patients wiht mechanical heart valves.POCT-GLUCOSE [id number] 21:47:00 Test Item Value Reference Range Interpretation Comments POC-GLUCOSE METER 202 mg/dL 70-[address] [facility] 6720 [facility] (test code = BR[place] Pri[place] 1538) [address] POCT-GLUCOSE [id number] 17:15:00 Test Item Value Reference Range Interpretation Comments POC-GLUCOSE METER 230 mg/dL 70-110 H TESTED AT [place] [address] (BEAKER) (test code = BRENDA Prieto [facility] 1538) [address] [id number] 15:36:00 Test Item Value Reference Range Interpretation Comments POTASSIUM (BEAKER) 3.6 meq/L 3.5-5.1 Specimen slightly (test code = 379) hemolyzed POCT-GLUCOSE [id number] 12:00:00 Test Item Value Reference Range Interpretation Comments POC-GLUCOSE METER 145 mg/dL 70-110 H TESTED AT [place] [address] [facility] (test code = BRENDA Prieto [place] 1538) [address] POCT-GLUCOSE [id number] 07:45:00 Test Item Value Reference Range Interpretation Comments POC-GLUCOSE METER 204 mg/dL 70-110 H TESTED AT [place] [address] (BEAKER) (test code = [facility] Conner [facility] 1538) [address] BASIC METABOLIC [id number] 06:52:00 Test Item Value Reference Range Interpretation [...] S NOT APPLICABLE FOR DIALYSIS PATIEN TS. [id number] 06:44:00 Test Item Value Reference Range Interpretation Comments MAGNESIUM (BEAKER) 2.2 mg/dL 1.6-2.6 Specimen slightly (test code = 627) hemolyzed [id number] 06:44:00 Test Item Value Reference Range Interpretation Comments PHOSPHORUS (BEAKER) 6.6 mg/dL 2.3-4.7 H Specimen slightly (test code = 604) hemolyzed [id number] 06:34:00 Test Item Value Reference Range Interpretation [...] mechanical heart valves.CBC W/PLT COUNT & AUTO [id number] 06:14:00 Test Item Value Reference Range Interpretation [...] PERCENT (BEAKER) (test code = 2801) POCT-GLUCOSE [id number] 22:00:00 Test Item Value Reference Range Interpretation Comments POC-GLUCOSE METER 214 mg/dL 70-[address] [facility] 6720 (BEAKER) (test code = [place] 1538) [address] [id number] 18:44:00 Test Item Value Reference Range Interpretation Comments PARTIAL THROMBOPLASTIN TIME 79.0 seconds 22.5-36.0 H (BEAKER) (test code = 760) POCT-GLUCOSE [id number] 16:38:00 Test Item Value Reference Range Interpretation Comments POC-GLUCOSE METER 194 mg/dL 70-110 H TESTED AT [place] [address] ([facility]) (test code = BRENDA Prieto [facility] 1538) [address] [id number] 12:50:00 Test Item Value Reference Range Interpretation Comments PARTIAL THROMBOPLASTIN TIME 83.0 seconds 22.5-36.0 H (AKER) (test code = 760) POCT-GLUCOSE [id number] 12:31:00 Test Item Value Reference Range Interpretation Comments POC-GLUCOSE METER 270 mg/dL 70-110 H TESTED AT [place] [address] ([facility]) (test code = BRENDA Prieto [facility] 1538) [address] POCT-GLUCOSE [id number] 07:58:00 Test Item Value Reference Range Interpretation Comments POC-GLUCOSE METER 212 mg/dL 70-110 H TESTED AT [place] [address] ([facility]) (test code = BRENDA Prieto [facility] 1538) [address] CBC W/PLT COUNT & AUTO [id number] 05:56:00 Test Item Value Reference Range Interpretation [...] 0-1 PERCENT (BEAKER) (test code = 2801) [id number] 05:43:00 Test Item Value Reference Range Interpretation Comments PARTIAL THROMBOPLASTIN TIME 43.1 seconds 22.5-36.0 H (BEAKER) (test code = 760) BASIC METABOLIC [id number] 04:36:00 Test Item Value Reference Range Interpretation [...] S NOT APPLICABLE FOR DIALYSIS PATIEN TS. [id number] 04:22:00 Test Item Value Reference Range Interpretation Comments PHOSPHORUS (BEAKER) (test code = 5.6 mg/dL 2.3-4.7 H 604) [id number] 04:22:00 Test Item Value Reference Range Interpretation Comments MAGNESIUM (BEAKER) (test code = 2.0 mg/dL 1.6-2.6 627) POCT-GLUCOSE [id number] 21:27:00 Test Item Value Reference Range Interpretation Comments POC-GLUCOSE METER 170 mg/dL 70-110 H TESTED AT [place] [address] ([facility]) (test code = [facility] 1538) [address] POCT-GLUCOSE [id number] 18:29:00 Test Item Value Reference Range Interpretation Comments POC-GLUCOSE METER 315 mg/dL 70-110 H Notified R Cali CARRILLO/TESTED ([facility]) (test code = AT [address] 1538) [facility] [address] POCT-GLUCOSE [id number] 12:33:00 Test Item Value Reference Range Interpretation Comments POC-GLUCOSE METER 78 mg/dL 70-110 TESTED AT [place] [address] ([facility]) (test code = [facility] [address] 1538) POCT-GLUCOSE [id number] 07:53:00 Test Item Value Reference Range Interpretation Comments POC-GLUCOSE METER 177 mg/dL 70-110 H TESTED AT [place] [address] ([facility]) (test code = [facility] 1538) [address] [id number] 05:58:00 Test Item Value Reference Range Interpretation [...] 20-55 (test code = 2590) BASIC METABOLIC [id number] 05:28:00 Test Item Value Reference Range Interpretation [...] S NOT APPLICABLE FOR DIALYSIS PATIEN TS. [id number] 05:24:00 Test Item Value Reference Range Interpretation Comments PHOSPHORUS (BEAKER) (test code = 7.5 mg/dL 2.3-4.7 H 604) [id number] 05:24:00 Test Item Value Reference Range Interpretation Comments MAGNESIUM (BEAKER) (test code = 2.0 mg/dL 1.6-2.6 627) [id number] 05:12:00 Test Item Value Reference Range Interpretation Comments PARTIAL THROMBOPLASTIN TIME 66.3 seconds 22.5-36.0 H (BEAKER) (test code = 760) CBC W/PLT COUNT & AUTO [id number] 05:00:00 Test Item Value Reference Range Interpretation [...] 0-1 PERCENT (BEAKER) (test code = 2801) [id number] 23:22:00 Test Item Value Reference Range Interpretation Comments PARTIAL THROMBOPLASTIN TIME 64.9 seconds 22.5-36.0 H (BEAKER) (test code = 760) POCT-GLUCOSE [id number] 21:01:00 Test Item Value Reference Range Interpretation Comments POC-GLUCOSE METER 113 mg/dL 70-110 H TESTED AT [place] [address] ([facility]) (test code = BRENDA Prieto [facility] 1538) [address] POCT-GLUCOSE [id number] 17:00:00 Test Item Value Reference Range Interpretation Comments POC-GLUCOSE METER 79 mg/dL 70-110 TESTED AT [place] [address] ([facility]) (test code = BRENDA Prieto [facility] [address] 1538) [id number] 15:58:00 Test Item Value Reference Range Interpretation Comments PARTIAL THROMBOPLASTIN TIME 45.3 seconds 22.5-36.0 H (BEAKER) (test code = 760) [id number] 13:49:00 Test Item Value Reference Range Interpretation Comments PARTIAL THROMBOPLASTIN TIME 198.1 seconds 22.5-36.0 HH (BEAKER) (test code = 760) POCT-GLUCOSE [id number] 11:52:00 Test Item Value Reference Range Interpretation Comments POC-GLUCOSE METER 201 mg/dL 70-110 H TESTED AT [place] [address] ([facility]) (test code = [facility] Conner [facility] 1538) [address] POCT-GLUCOSE [id number] 07:48:00 Test Item Value Reference Range Interpretation Comments POC-GLUCOSE METER 194 mg/dL 70-110 H TESTED AT [place] [address] ([facility]) (test code = [facility] Conner [facility] 1538) [address] BASIC METABOLIC [id number] 07:26:00 Test Item Value Reference Range Interpretation [...] S NOT APPLICABLE FOR DIALYSIS PATIEN TS. [id number] 07:21:00 Test Item Value Reference Range Interpretation Comments PHOSPHORUS (BEAKER) 6.0 mg/dL 2.3-4.7 H Specimen slightly (test code = 604) hemolyzed HEPATIC FUNCTION [id number] 07:21:00 Test Item Value Reference Range Interpretation [...] Specimen slightly (test code = 347) hemolyzed [id number] 07:20:00 Test Item Value Reference Range Interpretation Comments MAGNESIUM (BEAKER) 2.2 mg/dL 1.6-2.6 Specimen slightly (test code = 627) hemolyzed CBC W/PLT COUNT & AUTO [id number] 07:03:00 Test Item Value Reference Range Interpretation [...] 0-1 PERCENT (BEAKER) (test code = 2801) [id number] 05:37:00 Test Item Value Reference Range Interpretation [...] is2.5-3.5 for patients wiht mechanical heart valves.POCT-GLUCOSE [id number] 21:36:00 Test Item Value Reference Range Interpretation Comments POC-GLUCOSE METER 130 mg/dL 70-[address] [facility] 6720 (BEAKER) (test code = [place] 1538) [address] [id number] 21:31:00 Test Item Value Reference Range Interpretation [...] patients wiht mechanical heart valves.HEPATITIS B SURFACE [id number] 19:20:00 Test Item Value Reference Range Interpretation Comments HEPATITIS B SURFACE ANTIGEN (2) Nonreactive Nonreactive (BEAKER) (test code = 2585) [id number] 17:47:00 Test Item Value Reference Range Interpretation [...] is2.5-3.5 for patients wiht mechanical heart valves.POCT-GLUCOSE [id number] 16:51:00 Test Item Value Reference Range Interpretation Comments POC-GLUCOSE METER 72 mg/dL 70-110 TESTED AT [place] [address] ([facility]) (test code = BRENDA Prieto [facility] [address] 1538) PLATELET AGGREGATION: FUNCTION [id number] 16:05:00 Test Item Value Reference Range Interpretation Comments WEAK ADP 62 % 60-91 RESULT([facility]) (test code = 2135) PLATELET FUNCTION 60-100% indicates SCREEN INTERP ([facility]) normal platelet (test code = 2173) function [id number] Billie Pollock MD ([facility]) (test code = (electronic signature) 4822) PLATELET COUNT AGG 263 K/CU MM 150-450 ([facility]) (test code = 2656) Platelet Function Screen results may be falsely low with platelet counts<100,000/cu mm.POCT-GLUCOSE [id number] 12:37:00 Test Item Value Reference Range Interpretation Comments POC-GLUCOSE METER 206 mg/dL 70-110 H TESTED AT [place] [address] ([facility]) (test code = BRENDA Prieto [facility] 1538) [address] HEMOGLOBIN [id number] 11:12:00 Test Item Value Reference Range Interpretation Comments HEMOGLOBIN A1C ([facility]) (test code = 7.4 % 4.3-6.1 H 368) POCT-GLUCOSE [id number] 07:21:00 Test Item Value Reference Range Interpretation Comments POC-GLUCOSE METER 109 mg/dL 70-110 TESTED AT [place] [address] ([facility]) (test code = BRENDA Prieto [facility] 1538) [address] BASIC METABOLIC [id number] 06:55:00 Test Item Value Reference Range Interpretation Comments SODIUM ([facility]) 137 meq/L 136-145 (test code = 381) POTASSIUM ([facility]) 5.1 meq/L 3.5-5.1 Specimen slightly (test code [...] S NOT APPLICABLE FOR DIALYSIS PATIEN TS. [id number] 06:53:00 Test Item Value Reference Range Interpretation Comments MAGNESIUM (BEAKER) 2.5 mg/dL 1.6-2.6 Specimen slightly (test code = 627) hemolyzed [id number] 06:38:00 Test Item Value Reference Range Interpretation [...] 0-0 (BEAKER) (test code = 413) POCT-GLUCOSE [id number] 00:17:00 Test Item Value Reference Range Interpretation Comments POC-GLUCOSE METER 301 mg/dL 70-110 H Notified R Cali CARRILLO/TESTED (BEAKER) (test code = AT [facility] [address] [facility] 4257) [place] [address] [id number] 20:44:00 Test Item Value Reference Range Interpretation Comments PARTIAL THROMBOPLASTIN TIME 34.1 seconds 22.5-36.0 (BEAKER) (test code = 760) Prior to initiating heparinPLATELET [id number] 20:37:00 Test Item Value Reference Range Interpretation Comments PLATELET COUNT (BEAKER) (test 257 K/CU MM 150-450 code = 756) POTASSIUM-STAT [id number] 10:59:00 Test Item Value Reference Range Interpretation Comments POTASSIUM (BEAKER) (test code = 5.3 meq/L 3.6-5.5 379) BASIC METABOLIC [id number] 10:19:00 Test Item Value Reference Range Interpretation [...] S NOT APPLICABLE FOR DIALYSIS PATIEN TS. [id number] 10:15:00 Test Item Value Reference Range Interpretation [...] mechanical heart valves.CBC W/PLT COUNT & AUTO [id number] 10:02:00 Test Item Value Reference Range Interpretation [...] code = 2801) MYOCARD IMAGING, MULTI, PHARM, [id number] 16:25:00FINAL REPORT PROCEDURE: MYOCARDIAL PERFUSION SPECT IMAGING (Rest/Stress)CPT CODE: 49040 INDICATION: Renal transplant evaluation CARDIOVASCULAR PROFILE:CAD History: [...] MDReport Verified Date/Time: 09/30/2018 16:25:13 Reading Location: [address] OCCULT BLOOD, [id number] 17:11:00 Test Item Value Reference Range Interpretation Comments FECAL OCCULT BLOOD (BEAKER) (test Positive Negative A code = 618) OCCULT BLOOD, [id number] 17:02:00 Test Item Value Reference Range Interpretation Comments FECAL OCCULT BLOOD (BEAKER) (test Negative Negative code = 618) POCT-GLUCOSE [id number] 11:41:00 Test Item Value Reference Range Interpretation Comments POC-GLUCOSE METER 161 mg/dL 70-[address] [facility] 6720 (BEAKER) (test [facility] = [facility] 1538) [address] HEPATITIS B SURFACE [id number] 08:02:00 Test Item Value Reference Range Interpretation Comments HEPATITIS B SURFACE ANTIGEN (2) Nonreactive Nonreactive (BEAKER) (test code = 2585) For chronic HD patients, draw HBsAg with each admission then every 30 days.POCT- GLUCOSE [id number] 07:52:00 Test Item Value Reference Range Interpretation Comments POC-GLUCOSE METER 98 mg/dL 70-[address] [facility] 6720 (BEAKER) (test code = BRENDA Prieto [facility] [address] 1538) BASIC METABOLIC [id number] 05:13:00 Test Item Value Reference Range Interpretation [...] WBC 0-0 (BEAKER) (test code = 413) [id number] 05:03:00 Test Item Value Reference Range Interpretation Comments MAGNESIUM (BEAKER) 2.6 mg/dL 1.6-2.6 Specimen moderately (test code = 627) hemolyzed POCT-GLUCOSE [id number] 23:31:00 Test Item Value Reference Range Interpretation Comments POC-GLUCOSE METER 109 mg/dL 70-110 TESTED AT [place] [address] ([facility]) (test code = BRENDA Prieto [facility] 1538) [id number] 20:10:00 Test Item Value Reference Range Interpretation Comments ACTIVATED CLOTTING TIME 131 sec TEST ED AT [place] [address] ([facility]) (test code = [facility] 441) [id number] 18:55:00 Test Item Value Reference Range Interpretation Comments POTASSIUM (BEAKER) (test code = 5.0 meq/L 3.5-5.1 379) [id number] 18:36:00 Test Item Value Reference Range Interpretation Comments ACTIVATED CLOTTING TIME 147 sec TEST ED AT [place] [address] ([facility]) (test code = [facility] 441) [id number] POCT-GLUCOSE [id number] 16:22:00 Test Item Value Reference Range Interpretation Comments POC-GLUCOSE METER 82 mg/dL 70-110 TESTED AT [place] [address] ([facility]) (test code = BRENDA Prieto [facility] [address] 1538) [id number] 15:40:00 Test Item Value Reference Range Interpretation Comments ACTIVATED CLOTTING TIME 208 sec TEST ED AT [place] [address] ([facility]) (test code = BRENDA Prieto [facility] 441) [id number] 14:31:00 Test Item Value Reference Range Interpretation Comments ACTIVATED CLOTTING TIME 224 sec TEST ED AT [place] [address] ([facility]) (test code = BRENDA Prieto [place] [address]) [id number] 14:31:00 Test Item Value Reference Range Interpretation Comments ACTIVATED CLOTTING TIME 411 sec TEST ED AT [place] [address] ([facility]) (test code = BRENDA Prieto [facility] 441) [address] POCT-GLUCOSE [id number] 13:29:00 Test Item Value Reference Range Interpretation Comments POC-GLUCOSE METER 130 mg/dL 70-110 H TESTED AT [place] [address] ([facility]) (test code = BRENDA Prieto [facility] 1538) [id number] POCT-GLUCOSE [id number] 13:01:00 Test Item Value Reference Range Interpretation Comments POC-GLUCOSE METER 32 mg/dL 70-110 LL Notified Conner Leiva MD/TESTED AT ([facility]) (test code = [address] 1538) [facility] 7703 0 CBC W/PLT COUNT & AUTO [id number] 11:07:00 Test Item Value Reference Range Interpretation Comments WHITE BLOOD CELL COUNT ([facility]) 6.1 K/ L 4.0-10.0 (test code = 775) RED BLOOD CELL COUNT ([facility]) 3.71 M/ L 4.20-5.80 L (test code = 761) HEMOGLOBIN ([facility]) (test code = 12.4 GM/DL 13.0-16.8 L 410) HEMATOCRIT ([facility]) (test code = 36.8 % 40.0-50.0 L 411) MEAN CORPUSCULAR VOLUME ([facility]) 99.2 fL 82.0-98.0 H (test code = 753) MEAN CORPUSCULAR HEMOGLOBIN 33.4 pg 27.0-33.0 H ([facility]) (test code = 751) MEAN CORPUSCULAR HEMOGLOBIN [...] 0.00-0.20 (test code = 417) 0.00BASI METABOLIC [id number] 10:53:00 Test Item Value Reference Range Interpretation [...] S NOT APPLICABLE FOR DIALYSIS PATIEN TS. [id number] 10:44:00 Test Item Value Reference Range Interpretation [...] mechanical heart valves.FLOW PRA CLASS I AND [id number] 11:51:00 Test Item Value Reference Range Interpretation Comments DATE OF SERUM (BEAKER) [id number] (test code = 2289) SERUM # (BEAKER) (test 239216 code = 2290) FLOW PRA CLASS I AND II See Scanned Report (test code = 2421) HLA [id number] 11:51:00 Test Item Value Reference Range Interpretation [...] (BEAKER) (test code = 2583) EBV-VCA ANTIBODY, [id number] 14:35:00 Test Item Value Reference Range Interpretation Comments ROLDAN-ELIZABETH VCA IGM (BEAKER) (test Negative code = 984) VARICELLA ZOSTER ANTIBODY, [id number] 12:16:00 Test Item Value Reference Range Interpretation Comments VARICELLA ZOSTER IGG (AL) (BEAKER) 1.6 Al (test code = 3197) VARICELLA ZOSTER RESULT INTERPRETATIONS: <=0.8 Al Nonreactive: Presumed non-immune to VZV 0.9-1.0 Al Equivocal >=1.1 Al Reactive: Presumed immune to VZVCYTOMEGALOVIRUS ANTIBODY, [id number] 12:11:00 Test Item Value Reference Range Interpretation Comments CYTOMEGALOVIRUS IGG ANTIBODY Positive (BEAKER) (test code = 790) CYTOMEGALOVIRUS ANTIBODY, [id number] 12:11:00 Test Item Value Reference Range Interpretation Comments CYTOMEGALOVIRUS IGM ANTIBODY Negative (BEAKER) (test code = 816) EBV-VCA ANTIBODY, [id number] 12:11:00 Test Item Value Reference Range Interpretation Comments ROLDAN-ELIZABETH VCA IGG (BEAKER) (test Positive code = 983) [id number] 11:41:00 Test Item Value Reference Range Interpretation Comments RPR SCREEN (BEAKER) (test code = Nonreactive Nonreactive 420) HEPATITIS B SURFACE [id number] 14:42:00 Test Item Value Reference Range Interpretation Comments HEPATITIS B SURFACE ANTIBODY 9.6 mIU/mL <8.0 H (BEAKER) (test code = 647) HEPATITIS B SURFACE [id number] 14:12:00 Test Item Value Reference Range Interpretation Comments HEPATITIS B SURFACE ANTIGEN (2) Nonreactive Nonreactive (BEAKER) (test code = 2585) HEPATITIS B CORE ANTIBODY, [id number] 14:12:00 Test Item Value Reference Range Interpretation Comments HEPATITIS B CORE IGM ANTIBODY Nonreactive Nonreactive (BEAKER) (test code = 645) HEPATITIS C [id number] 14:12:00 Test Item Value Reference Range Interpretation Comments HEPATITIS C ANTIBODY (BEAKER) Nonreactive Nonreactive (test code = 367) HIV-1 ANTIGEN WITH HIV-1/2 [id number] 14:12:00 Test Item Value Reference Range Interpretation Comments HIV-1 ANTIGEN WITH HIV 1\\T\\2 Nonreactive Nonreactive ANTIBODY (2) (BEAKER) (test code = 2586) [id number] 14:12:00 Test Item Value Reference Range Interpretation Comments PROSTATE SPECIFIC ANTIGEN (BEAKER) 0.7 ng/mL 0.0-4.0 (test code = 844) COMPREHENSIVE METABOLIC [id number] 13:58:00 Test Item Value Reference Range Interpretation [...] NOT APPLICABLE FOR DIALYSIS PATIEN TS. PTH, [id number] 13:52:00 Test Item Value Reference Range Interpretation Comments PARATHYROID HORMONE INTACT 289.5 pg/mL 8.5-72.5 H (BEAKER) (test code = 577) Effective 04/11/2014: Reference Range ChangeNew: 8.5-72.5 Previous: 15.0-90.0 URIC [id number] 13:52:00 Test Item Value Reference Range Interpretation Comments URIC ACID (BEAKER) (test code = 3.9 mg/dL 2.6-7.2 773) [id number] 13:52:00 Test Item Value Reference Range Interpretation Comments PHOSPHORUS (BEAKER) (test code = 3.3 mg/dL 2.3-4.7 604) LIPID [id number] 13:52:00 Test Item Value Reference Range Interpretation [...] 161 U/L 125-220 code = 635) HEMOGLOBIN [id number] 13:32:00 Test Item Value Reference Range Interpretation Comments HEMOGLOBIN A1C (BEAKER) (test code = 5.9 % 4.3-6.1 368) CBC W/PLT COUNT & AUTO [id number] 13:32:00 Test Item Value Reference Range Interpretation [...] K/ L 0.00-0.20 (test code = 417) 0.00PT/[id number] 13:18:00 Test Item Value Reference Range Interpretation [...]
[2021-11-17] MEDS ORDERED: HYDROMORPHONE HCL 1 MG/ML INJ ONE (20:23)
[2021-11-17] MEDS ORDERED: ONDANSETRON 4 MG (ODT) TAB ONE (20:23)
--- NOTE | 2021-11-17 21:01 | RAD REPORT ---
EXAM DESCRIPTION: CT - Head C Spine Cap Wo Con - 11/17/2021 8:46 pm CLINICAL HISTORY: fallwith persistent head, neck, chest and abdomen pain COMPARISON: Head C Spine Cap Wo Con dated 08/07/2020; Head Brain Wo Cont dated 11/21/2020; Head C Spin e Mpr Wo Con dated 04/28/2016 TECHNIQUE: Axial [address] head images were obtained. Axial [address] cervical spine images were obtain ed with sagittal and coronal reconstruction images reviewed. Axial 5 mm images of the chest, abdomen and pelvis were obtained. All CT scans are performed using dose optimization technique as appropriate and may include automated exposure control or mA/KV adjustment according to patient size. FINDINGS: No intracranial hemorrhage, mass or edema. No midline shift or abnormal fluid collection. Mastoid air cells and paranasal sinuses are clear. No skull fracture. Dense arterial tree calcificati ons are present. Hyperdense right globe is unchanged back to 2016. Cervical bodies are normal in height and alignment. No fracture or acute bone finding.No disk space n arrowing.No prevertebral soft tissue thickening or paraspinal mass.Central canal detail is inherently limited on CT imaging. Right lung field is clear. Parenchymal stranding in the mid and lower left lung field is probably chr onic parenchymal disease rather than trauma related contusion or atelectasis. A similar but more prom inent pattern seen July 2020. CABG surgical changes are noted. Dense coronary artery calcifications present. No pericardial thickening or effusion. No mediastinal hematoma and the aorta and pulmonary a rteries are unremarkable. No chest will mass or abnormal axillary finding. No displaced rib fractures seen. Cortical changes in multiple posterior left-sided rib is are present remodeling from 2020 rib fractures. No nondisplaced rib fractures confirmed. No nondisplaced rib fractures confirmed. Incomple te bony union of the sternotomy. CT abdomen and pelvis show no injury to solid abdominal viscera. Cholecystectomy clips are present. N o biliary tree dilatation. Symmetric bilateral renal atrophy present with dense arterial tree calcifi cations. Patient has a known dialysis patient. No bowel injury or significant finding. No free air, f ree fluid or abnormal stranding. No mass or bulky lymphadenopathy. Bilateral hernia is present. No u rinary bladder abnormality. No significant bony finding. IMPRESSION: No significant CT Head finding. No significant CT cervical spine finding. Chronic left base pleural and parenchymal changes are present believed to be the sequela of the injur ies for July 2020. No displaced rib fracture present and no nondisplaced rib fractures confirmed. No significant CT Abdomen and Pelvis finding.
[2021-11-17] MEDS ORDERED: LIDOCAINE 4% PATCH ONE (21:39)
[2021-11-17 21:58] LABS: Absolute Lymphocytes (CBC) 1.3 K/uL (0.7-4.9); Hematocrit 35.1 % (39.6-49.0); Lymphocytes % 11.3 % (15.3-44.8); MPV 7.2 fL (7.6-11.3); RBC Red Blood Cell Count 3.65 M/uL (4.33-5.43)
[2021-11-17 22:02] LABS: Protime INR 0.92
[2021-11-17 22:16] LABS: Potassium 4.6 mmol/L (3.5-5.1)
--- NOTE | 2021-11-17 23:00 | EDPHYS ---
Physician Documentation [facility] Name: Shekhar Gambino Age: 56 yrs Sex: Male : 1965 Arrival Date: 11/17/2021 Time: 17:46 Bed 23 Private MD: ED Physician Maxi Clark HPI: 11/17 19:30 This 56 yrs old Male presents to ER via Wheelchair with complaints of Fall cp Injury, Back Pain. 19:30 Details of fall: The patient fell from an upright position, while walking. cp 19:30 Onset: The symptoms/episode began/occurred 3 day(s) ago. cp 19:30 Associated injuries: The patient sustained upper back injury, pain, injury to the low cp back, pain. Severity of symptoms: in the emergency department the symptoms are actually worse, moderately. Patient reports losing balance and falling while in bathroom 3 days ago. Denies hitting head, denies LOC. Historical: - Allergies: 18:04 Eliquis; vg1 - Home Meds: 18:04 aspirin 81 mg Oral TbEC 1 tab once daily [Active]; atorvastatin Oral [Active]; vg1 clopidogrel 75 mg Oral tab 1 tab once daily [Active]; - PMHx: 18:04 Diabetes - IDDM; Dialysis; High Cholesterol; vg1 - PSHx: 18:04 Coronary artery bypass graft; Glaucoma; left toe amputation; vg1 - Immunization history:: Client reports receiving the 2nd dose of the Covid vaccine. - Social history:: Smoking status: Patient denies any tobacco usage or history of. ROS: 19:35 Constitutional: Negative for body aches, chills, fever, poor PO intake. cp 19:35 Eyes: Negative for injury, pain, redness, and discharge. cp 19:35 ENT: Negative for drainage from ear(s), ear pain, sore throat, difficulty swallowing, difficulty handling secretions. 19:35 Neck: Negative for pain with movement, pain at rest, stiffness. 19:35 Cardiovascular: Negative for chest pain, edema, palpitations. 19:35 Respiratory: Negative for cough, shortness of breath, wheezing. 19:35 Abdomen/GI: Negative for abdominal pain, nausea, vomiting, and diarrhea, constipation, bowel incontinence. 19:35 Back: Positive for pain at rest, pain with movement, of the left subscapular area, left low back and left mid back. 19:35 : Negative for urinary symptoms, testicular pain 19:35 Skin: Negative for cellulitis, rash. 19:35 Neuro: Negative for altered mental status, dizziness, headache, loss of consciousness, numbness, syncope, tingling, weakness. 19:35 All other systems are negative. Exam: 19:40 Constitutional: The patient appears in no acute distress, alert, awake, cp non-diaphoretic, non-toxic, well developed, well nourished, in obvious pain, uncomfortable. 19:40 Head/Face: Normocephalic, atraumatic. cp 19:40 Eyes: Periorbital structures: appear normal, Pupils: equal, round, and reactive to light and accomodation, Extraocular movements: intact throughout, Conjunctiva: normal, no exudate, no injection, Sclera: no appreciated abnormality, Lids and lashes: appear normal, bilaterally. 19:40 ENT: External ear(s): are unremarkable, Nose: is normal, Mouth: Lips: moist, Oral mucosa: moist, Posterior pharynx: Airway: no evidence of obstruction, patent. 19:40 Neck: C-spine: vertebral tenderness, is not appreciated, crepitus, is not appreciated, ROM/movement: pain, is not appreciated, limited range of motion, is not appreciated. 19:40 Chest/axilla: Inspection: normal, Palpation: is normal, no crepitus, no tenderness. 19:40 Cardiovascular: Rate: normal, Rhythm: regular. 19:40 Respiratory: the patient does not display signs of respiratory distress, Respirations: normal, no use of accessory muscles, no retractions, labored breathing, is not present, Breath sounds: are clear throughout, no decreased breath sounds. 19:40 Abdomen/GI: Inspection: abdomen appears normal, Palpation: abdomen is soft and non-tender, in all quadrants. 19:40 Back: pain, that is severe, of the left subscapular area, left low back and left mid back, ROM is painful, with all movement, Straight leg raises: of both lower extremities does not illicit pain. 19:40 Musculoskeletal/extremity: Exam is negative for decreased range of motion, deformity, injury. 19:40 Skin: cellulitis, is not appreciated, no rash present. 19:40 Neuro: Orientation: to person, place \T\ time. Mentation: is normal, Motor: moves all fours, strength is normal, Sensation: is normal. Vital Signs: 17:59 BP 144 / 75; Pulse 84; Resp 16; Temp 97.9; Pulse Ox 100% on R/A; Weight 72.12 kg; vg1 Height 5 ft. 5 in. (165.10 cm); Pain 10/10; 20:02 BP 118 / 68; Pulse 80; Resp 22; Pulse Ox 100% ; zm 23:53 BP 116 / 61; Pulse 87; Resp 18 S; Temp 97.9(TE); Pulse Ox 99% on R/A; bb 17:59 Body Mass Index 26.46 (72.12 kg, 165.10 cm) vg1 MDM: 19:30 Patient medically screened. cp 20:00 Differential diagnosis: closed head injury, contusion, fracture, multiple trauma. cp 22:59 Data reviewed: vital signs, nurses notes, lab test result(s), radiologic studies, CT cp scan, and as a result, I will discharge patient. 22:59 Counseling: I had a detailed discussion with the patient and/or guardian regarding: the cp historical points, exam findings, and any diagnostic results supporting the discharge/admit diagnosis, lab results, radiology results, the need for outpatient follow up, a family practitioner, to return to the emergency department if symptoms worsen or persist or if there are any questions or concerns that arise at home. Response to treatment: the patient's symptoms have markedly improved after treatment, VSS. Pain markedly improved. CT negative for acute trauma. Will discharge to home for continued monitoring , and as a result, I will discharge patient. 11/17 19:31 Order name: Basic Metabolic Panel; Complete Time: 22:45 cp 11/17 22:47 Interpretation: Reviewed. cp 11/17 19:31 Order name: CBC with Diff; Complete Time: 22:45 cp 11/17 22:46 Interpretation: Normal except: WBC 11.1; RBC 3.65; HGB 11.4; HCT 35.1; MCV 96.1; MPV cp 7.2; COLLETTE% 81.3; LYM% 11.3; NEUT A 9.0. 11/17 19:31 Order name: Type And Screen; Complete Time: 22:46 cp 11/17 19:31 Order name: CT Traumagram (Head C Spine CAP wo con); Complete Time: 21:09 cp 11/17 19:32 Order name: PT-INR; Complete Time: 22:45 cp 11/17 19:32 Order name: Ptt, Activated; Complete Time: 22:45 cp 11/17 19:31 Order name: Labs collected and sent; Complete Time: 23:55 cp Administered Medications: 20:21 CANCELLED (Physician Discretion): fentaNYL (PF) 25 mcg IVP once bb 20:22 CANCELLED (Physician Discretion): fentaNYL (PF) 25 mcg IVP once bb 20:22 CANCELLED (Physician Discretion): Zofran (Ondansetron) 4 mg IVP once; over 2 minutes bb 20:22 Drug: Dilaudid (HYDROmorphone) 1 mg Route: IM; Site: right deltoid; bb 21:16 Follow up: Response: No adverse reaction; Pain is decreased bb 20:22 Drug: Ondansetron 4 mg Route: PO; bb 21:16 Follow up: Response: No adverse reaction bb 21:34 Drug: Lidoderm Patch 5 % (700 mg/patch) 1 patches Route: Topical; Site: affected area; bb 23:32 Drug: HYDROcodone-acetaminophen 10 mg-325 mg 1 tabs Route: PO; cg 23:54 Follow up: Response: Medication administered at discharge. bb Disposition: 11/18 07:56 Co-signature as Attending Physician, Maxi Clark MD. mh7 Disposition Summary: 11/17/21 22:59 Discharge Ordered Location: Home cp Problem: new cp Symptoms: have improved cp Condition: Stable cp Diagnosis - Contusion of left back wall of thorax cp - Fall on same level from slipping, tripping and stumbling without subsequent cp striking against object Followup: cp - With: Private Physician - When: 1 - 2 days - Reason: Recheck today's complaints Discharge Instructions: - Discharge Summary Sheet cp - Rib Contusion cp Forms: - Medication Reconciliation Form cp - Thank You Letter cp - Antibiotic Education cp - Prescription Opioid Use cp Prescriptions: - Lidoderm 5 % Topical adhesive patch,medicated - apply 1 patch by TOPICAL route once daily; 10 patch; Refills: 0, Product cp Selection Permitted - Cyclobenzaprine 10 mg Oral Tablet - take 1 tablet by ORAL route every 8 hours As needed; 20 tablet; Refills: 0, cp Product Selection Permitted - Tylenol-Codeine #3 300 mg-30 mg Oral - take 2 tablet by ORAL route every 8-12 hours; 12 tablet; Refills: 0, Product cp Selection Permitted Signatures: Dispatcher [employer] Tali Cano RN RN Johann Edward PA PA cp Garcia, Cindy, RN RN cg Garcia, Victoria, RN RN vg1 Maxi Clark MD MD mh7 Corrections: (The following items were deleted from the chart) 11/17 20:21 19:31 fentaNYL (PF) 25 mcg IVP once ordered. [facility] : 19:31 fentaNYL (PF) 25 mcg IVP once ordered. [facility] 19:51 Zofran (Ondansetron) 4 mg IVP once; over 2 minutes ordered. [facility] 11/18 23:06 23:03 Data reviewed: vital signs, nurses notes, lab test result(s), radiologic studies, cp CT scan, and as a result, I will discharge patient, cp
--- NOTE | 2021-11-17 23:00 | ER ---
Nurse's Notes [facility] Name: Shekhar Gambino Age: 56 yrs Sex: Male : 1965 Arrival Date: 11/17/2021 Time: 17:46 Bed 23 Private MD: Diagnosis: Contusion of left back wall of thorax;Fall on same level from slipping, tripping and stumbling without subsequent striking against object Presentation: 11/17 17:59 Chief complaint: Patient states: Fell morning between sink and toilet and is vg1 c/o pain left sided back pain. Denies hitting or LOC. Coronavirus screen: Vaccine status: Patient reports receiving the 2nd dose of the covid vaccine. Client denies travel out of the [place] in the last 14 days. Ebola Screen: Patient denies exposure to infectious person. Patient denies travel to an Ebola-affected area in the 21 days before illness onset. Initial Sepsis Screen:. Initial Sepsis Screen: Does the patient meet any 2 criteria? No. Patient's initial sepsis screen is negative. Does the patient have a suspected source of infection? No. Patient's initial sepsis screen is negative. Risk Assessment: Do you want to hurt yourself or someone else? Patient reports no desire to harm self or others. Onset of symptoms was November 14, 2021. 17:59 Method Of Arrival: Wheelchair vg1 17:59 Acuity: AZAEL 3 vg1 Triage Assessment: 18:04 General: Appears uncomfortable, Behavior is cooperative. Pain: Complains of pain in vg1 back. Historical: - Allergies: 18:04 Eliquis; vg1 - Home Meds: 18:04 aspirin 81 mg Oral TbEC 1 tab once daily [Active]; atorvastatin Oral [Active]; vg1 clopidogrel 75 mg Oral tab 1 tab once daily [Active]; - PMHx: 18:04 Diabetes - IDDM; Dialysis; High Cholesterol; vg1 - PSHx: 18:04 Coronary artery bypass graft; Glaucoma; left toe amputation; vg1 - Immunization history:: Client reports receiving the 2nd dose of the Covid vaccine. - Social history:: Smoking status: Patient denies any tobacco usage or history of. Screenin:40 Abuse screen: Denies threats or abuse. Nutritional screening: No deficits noted. bb Tuberculosis screening: No symptoms or risk factors identified. Fall Risk None identified. Assessment: 19:40 General: Appears uncomfortable, Behavior is agitated, anxious. Pain: Complains of pain bb in back Pain currently is 10 out of 10 on a pain scale. Neuro: Level of Consciousness is awake, alert, obeys commands, Oriented to person, place, time, situation. Cardiovascular: Capillary refill < 3 seconds Patient's skin is warm and dry. Respiratory: Respiratory effort is even, unlabored. GI: No signs and/or symptoms were reported involving the gastrointestinal system. EENT: Derm: Skin is dry, Skin is normal, Skin temperature is warm. Musculoskeletal: Circulation, motion, and sensation intact. Reports pain in back. 21:05 Reassessment: Patient is alert, oriented x 3, equal unlabored respirations, skin bb warm/dry/pink. pt moaning, friend at bedside. 23:38 Reassessment: Patient is alert, oriented x 3, equal unlabored respirations, skin bb warm/dry/pink. pt c/o pain to back pt medicated see MAR. Pt verbalized understanding of and agrees to plan of care discharge instructions given pt assisted to exit via wheelchair accompanied by friend. Vital Signs: 17:59 BP 144 / 75; Pulse 84; Resp 16; Temp 97.9; Pulse Ox 100% on R/A; Weight 72.12 kg; vg1 Height 5 ft. 5 in. (165.10 cm); Pain 10/10; 20:02 BP 118 / 68; Pulse 80; Resp 22; Pulse Ox 100% ; zm 23:53 BP 116 / 61; Pulse 87; Resp 18 S; Temp 97.9(TE); Pulse Ox 99% on R/A; bb 17:59 Body Mass Index 26.46 (72.12 kg, 165.10 cm) vg1 ED Course: 17:46 Patient arrived in ED. bp1 18:04 Triage completed. vg1 18:04 Arm band placed on. vg1 19:28 Johann Bradshaw PA is PHCP. cp 19:28 Maxi Clark MD is Attending Physician. cp 19:51 Tali Urbina, LUCIA is Primary Nurse. bb 20:02 Patient has correct armband on for positive identification. Bed in low position. Call zm light in reach. Side rails up X 1. Adult w/ patient. Pulse ox on. NIBP on. 20:10 Missed attempt(s): 20 gauge in right antecubital area. Bleeding controlled, band aid bb applied, catheter tip intact. 20:38 Missed attempt(s): 22 gauge in right antecubital area. mh5 20:48 CT Traumagram (Head C Spine CAP wo con) In Process Unspecified. EDMS 23:38 No provider procedures requiring assistance completed. Patient did not have IV access bb during this emergency room visit. Administered Medications: 20:21 CANCELLED (Physician Discretion): fentaNYL (PF) 25 mcg IVP once bb 20:22 CANCELLED (Physician Discretion): fentaNYL (PF) 25 mcg IVP once bb 20:22 CANCELLED (Physician Discretion): Zofran (Ondansetron) 4 mg IVP once; over 2 minutes bb 20:22 Drug: Dilaudid (HYDROmorphone) 1 mg Route: IM; Site: right deltoid; bb 21:16 Follow up: Response: No adverse reaction; Pain is decreased bb 20:22 Drug: Ondansetron 4 mg Route: PO; bb 21:16 Follow up: Response: No adverse reaction bb 21:34 Drug: Lidoderm Patch 5 % (700 mg/patch) 1 patches Route: Topical; Site: affected area; bb 23:32 Drug: HYDROcodone-acetaminophen 10 mg-325 mg 1 tabs Route: PO; cg 23:54 Follow up: Response: Medication administered at discharge. bb Outcome: 22:59 Discharge ordered by MD. cp 23:39 Discharged to home with crutches, with friend. bb 23:39 Condition: stable 23:39 Discharge instructions given to patient, Instructed on discharge instructions, follow up and referral plans. medication usage, Demonstrated understanding of instructions, follow-up care, medications, Prescriptions given X 3. 23:55 Patient left the ED. bb Signatures: Dispatcher [employer] EDMS Tali Urbina RN RN Johann Edward PA PA cp Garcia, Cindy, RN RN cg Martinez, Maria Dianne Worrell RN RN vg1 Lindsay Francis Zaina zm
[2021-11-17] MEDS ORDERED: HYDROCODONE/APAP 10/325 TAB ONE (23:35)
[2021-11-18 00:29] VITALS: TEMP 97.9
[2021-11-18 00:34] VITALS: BP 116/61; O2SAT 99
== END 2021-11-17 23:55 | disposition home or self-care (01) ==
LOC: ER 16:58
DX: S20.222A Contusion of left back wall of thorax, initial encounter (principal); W01.0XXA Fall on same level from slipping, tripping and stumbling without subsequent striking against object, initial encounter; E11.9 Type 2 diabetes mellitus without complications; E78.00 Pure hypercholesterolemia, unspecified; Z99.2 Dependence on renal dialysis; Z95.1 Presence of aortocoronary bypass graft
CPT/HCPCS: 85025; 80048; 36415; 86900; 86850; 85610; 86901; 85730; 70450; 71250; 72125; 96372; 99284; Q0162; J2001; J1170

== ENCOUNTER 2021-12-18 09:26 | Inpatient (IN) | payer OTHER ==
[2021-12-18 11:27] LABS: Absolute Lymphocytes (CBC) 0.6 K/uL (0.7-4.9); Hematocrit 35.7 % (39.6-49.0); Lymphocytes % 3.2 % (15.3-44.8); MCV 95.1 fL (80-100); MPV 7.6 fL (7.6-11.3); RBC Red Blood Cell Count 3.76 M/uL (4.33-5.43)
--- NOTE | 2021-12-18 11:43 | RAD REPORT ---
EXAM DESCRIPTION: CT - Chest Abdomen Pelvis W Cont - 12/18/2021 11:18 am CLINICAL HISTORY: Abdominal pain, acute, nonlocalized COMPARISON: No comparisons TECHNIQUE: Following dynamic enhancement using 100 milliliters nonionic IV contrast, axial imaging o f the chest, abdomen and pelvis was performed. Biphasic technique was utilized through the abdomen. No oral contrast administered. All CT scans are performed using dose optimization technique as appropriate and may include automated exposure control or mA/KV adjustment according to patient size. FINDINGS: Dense airspace opacification is present filling most of the left upper lobe. Air bronchogr ams are present. There is significant but less prominent airspace opacification in the left lower lob e. Scattered airspace opacities are present throughout the right lung field. Trace amount of bilatera l pleural fluid seen. No solid mass confirmed. No significant aortic or pulmonary arterial tree findi ng. Mediastinal and hilar regions show no mass or abnormal lymphadenopathy. No abnormal axillary lymp hadenopathy. There is some fluid retention in the left-sided chest and abdominal subcutaneous fat. CA BG surgical changes are noted. No cardiomegaly or pericardial effusion. The liver, spleen and pancreas show no suspicious findings. Cholecystectomy clips are present. No abn ormal biliary tree dilatation. There is some faint enhancement of the atrophic kidneys. Cortex is thi nned. Arterial calcifications are present. These are the expected findings of a dialysis patient. No adrenal abnormalities. No dilated bowel loops or focal bowel wall thickening. Minimal diverticulosis is present on the left. No diverticulitis. The few prominent small bowel loops seen are nonspecific. No ascites is present. There is no omental thickening or bulky lymphadenopathy. Disc and bone degenerative changes are present. No pathologic bone process. Bilateral fat filled ingu inal hernias are present. No significant vascular findings. IMPRESSION: Dense airspace opacification filling the majority of the left upper lobe with scattered airspace opacities in the left lower lobe and the right lung devlin. Bilateral pneumonia would be a primary consideration and correlation is needed with any clinical or l aboratory findings of infection. However, in a dialysis patient, the airspace opacities can also repr esent alveolar edema from volume overload. No acute findings in the abdomen or pelvis. Minimally prominent small bowel loops are nonspecific. En teritis not entirely excluded.
[2021-12-18 11:49] LABS: Albumin 2.9 g/dL (3.4-5.0); Bilirubin Total 0.9 mg/dL (0.2-1.0); Potassium 4.3 mmol/L (3.5-5.1); Protein, Total 7.5 g/dL (6.4-8.2)
[2021-12-18 12:29] LABS: Blood Morphology Comment NOT SEEN (NOT SEEN); Platelet Estimate ADEQ
--- NOTE | 2021-12-18 12:37 | ER ---
Nurse's Notes [facility] Name: Shekhar Gambino Age: 56 yrs Sex: Male : 1965 Arrival Date: 12/18/2021 Time: 09:33 Bed 18 Private MD: Izabela Lemos C Diagnosis: Pneumonia due to SARS-associated coronavirus;Respiratory failure, unspecified with hypoxia;Chronic kidney disease, stage 5 Presentation: 12/18 10:40 Chief complaint: Patient states: cough since Thursday, nausea and dry heaving since iw Thursday , was sent by Dr Michael, finished dialysis today. Coronavirus screen: Client presents with at least one sign or symptom that may indicate coronavirus-19. Ebola Screen: Patient negative for fever greater than or equal to 101.5 degrees Fahrenheit, and additional compatible Ebola Virus Disease symptoms Patient denies exposure to infectious person. Patient denies travel to an Ebola-affected area in the 21 days before illness onset. No symptoms or risks identified at this time. Initial Sepsis Screen: Does the patient meet any 2 criteria? No. Patient's initial sepsis screen is negative. Does the patient have a suspected source of infection?. Risk Assessment: Do you want to hurt yourself or someone else? Patient reports no desire to harm self or others. Onset of symptoms was December 16, 2021. 10:40 Method Of Arrival: Wheelchair iw 10:40 Acuity: ZAAEL 3 iw Triage Assessment: 13:00 General: Appears uncomfortable, Behavior is calm, quiet. Pain: Complains of pain in jg9 left lower quadrant and right lower quadrant and umbilical area Pain currently is 5 out of 10 on a pain scale. EENT: No deficits noted. Neuro: No deficits noted. Cardiovascular: No deficits noted. Respiratory: spo2 etween 88-90 on room air Breath sounds are diminished bilaterally. GI: Reports upper abdominal pain, nausea, vomiting. : No deficits noted. Derm: Skin scab noted to left foot with scant amount of blood (amputation noted), discoloration noted to bilateral feet, ankles, legs. Musculoskeletal: Amputation of left first toe, left second toe, left third toe, left fourth toe and left fifth toe. Historical: - Allergies: 10:42 Eliquis; iw - Home Meds: 14:11 aspirin 81 mg Oral TbEC 1 tab once daily [Active]; atorvastatin Oral [Active]; jg9 clopidogrel 75 mg Oral tab 1 tab once daily [Active]; - PMHx: 10:42 Diabetes - IDDM; Dialysis; High Cholesterol; iw - PSHx: 10:42 Coronary artery bypass graft; Glaucoma; left toe amputation; iw - Immunization history:: Adult Immunizations up to date. - Social history:: Smoking status: Patient denies any tobacco usage or history of. Screenin:03 Abuse screen: Denies threats or abuse. Denies injuries from another. Nutritional jg9 screening: On diabetic diet. Tuberculosis screening: No symptoms or risk factors identified. Fall Risk No fall in past 12 months (0 pts). IV access (20 points). Ambulatory Aid- Crutches/Cane/Walker (15 pts). Gait- Impaired (20 pts.). Mental Status-. Assessment: 14:02 Reassessment: nausea is decreased Patient states feeling better. Patient states jg9 symptoms have improved. Pain: Denies pain. GI: Bowel sounds present X 4 quads. Abd is soft and non tender X 4 quads. Reports nausea. Vital Signs: 10:40 BP 120 / 63; Pulse 98; Resp 18 S; Temp 97.4; Pulse Ox 91% on R/A; iw 12:30 BP 123 / 32; Pulse 85; Resp 16 S; Pulse Ox 97% on R/A; jg9 13:30 BP 114 / 25 RL; Pulse 79; Resp 14 S; Pulse Ox 96% on R/A; jg9 14:00 BP 117 / 36 RL; Pulse 80; Resp 13 S; Pulse Ox 94% on R/A; Pain 0/10; jg9 20:15 BP 133 / 33; Pulse 71; Resp 14; Pulse Ox 94% on 2 lpm NC; sm5 ED Course: 09:33 Patient arrived in ED. am2 09:33 Izabela Lemos MD is Private Physician. am2 10:24 [facility] jr8 10:24 Johann Gary MD is Attending Physician. jr8 10:42 Triage completed. iw 10:42 Arm band placed on. iw 11:00 Initial lab(s) drawn, by me, sent to lab. First set of blood cultures drawn. Missed dh3 attempt(s): 22 gauge in right forearm. Bleeding controlled, band aid applied, catheter tip intact. 11:10 Second set of blood cultures drawn by me. Inserted saline lock: 22 gauge in right dh3 antecubital area, using aseptic technique. ,using aseptic technique. by Madisyn CT Blood collected. 11:18 Chest Abdomen Pelvis W Cont In Process Unspecified. EDMS 12:11 Umu Kimbrough, LUCIA is Primary Nurse. jg9 12:35 Izabela Lemos MD is Hospitalizing Provider. jr8 13:00 Patient has correct armband on for positive identification. Placed in gown. Bed in low jg9 position. Call light in reach. Side rails up X 1. Warm blanket given. 19:24 Primary Nurse role handed off by Umu Kimbrough, LUCIA mw2 20:54 No provider procedures requiring assistance completed. Patient admitted, IV remains in [address] Administered Medications: 13:00 Drug: Zofran (Ondansetron) 4 mg Route: IVP; Site: right forearm; jg9 14:12 Follow up: Response: No adverse reaction; Nausea is decreased jg9 14:02 Drug: Rocephin (cefTRIAXone) 1 grams Route: IV; Rate: calculated rate; Infused Over: 30 jg9 mins; Site: right forearm; 14:43 Follow up: IV Status: Completed infusion; IV Intake: 50ml jg9 14:43 Dru mg of (Zithromax (azithromycin) 500 mg, NS 0.9% 250 ml) Route: IVPB; Infused jg9 Over: 1 hrs; Site: right forearm; 16:39 Drug: SOLU-Medrol (methylPrednisoLONE) 125 mg Route: IVP; Site: right forearm; jg9 Medication: 20:54 VIS not applicable for this client. 5 Intake: 14:43 IV: 50ml; Total: 50ml. jg9 Outcome: 12:36 Decision to Hospitalize by Provider. jr 20:54 Admitted to Tele accompanied by tech, with oxygen, with chart, Report called to Shaye mcfadden 20:54 Condition: stable 20:54 Instructed on the need for admit. 20:54 Patient left the ED. [facility] Signatures: Dispatcher [employer] EDMS Marilynn Bird RN RN iw Roszak, Josh, PA PA jr8 Sharmaine Zamarripa am2 Mel Dietrich 3 Violet Brewer 2 Vicki Park, RN RN sm5 Umu Kimbrough RN RN jg9 Corrections: (The following items were deleted from the chart) 14:05 14:00 BP 117 / 36; Pulse 80bpm; Resp 13bpm; Spontaneous; Pulse Ox 94% RA; Pain 0/10; [id number]
--- NOTE | 2021-12-18 12:37 | EDPHYS ---
Physician Documentation [facility] Name: Shekhar Gambino Age: 56 yrs Sex: Male : 1965 Arrival Date: 12/18/2021 Time: 09:33 Bed 18 Private MD: Izabela Lemos C ED Physician Johann Gary HPI: 12/18 10:27 This 56 yrs old Male presents to ER via Unassigned with complaints of jr8 Abdominal Pain. 10:27 The patient presents with abdominal pain in the periumbilical area. Onset: The jr8 symptoms/episode began/occurred acutely, 4 day(s) ago. The symptoms do not radiate. Associated signs and symptoms: Pertinent positives: nausea, Pertinent negatives: diarrhea, vomiting. The symptoms are described as stabbing. Modifying factors: The symptoms are alleviated by nothing, the symptoms are aggravated by nothing. Severity of pain: At its worst the pain was moderate in the emergency department the pain is unchanged. The patient has not experienced similar symptoms in the past. The patient has been recently seen by a physician: the patient's primary care provider. Stated that this past Thursday started with cough and now with mild shortness of breath and abdominal pain with nausea . Historical: - Allergies: 10:42 Eliquis; iw - Home Meds: 14:11 aspirin 81 mg Oral TbEC 1 tab once daily [Active]; atorvastatin Oral [Active]; jg9 clopidogrel 75 mg Oral tab 1 tab once daily [Active]; - PMHx: 10:42 Diabetes - IDDM; Dialysis; High Cholesterol; iw - PSHx: 10:42 Coronary artery bypass graft; Glaucoma; left toe amputation; iw - Immunization history:: Adult Immunizations up to date. - Social history:: Smoking status: Patient denies any tobacco usage or history of. ROS: 10:27 Constitutional: Negative for fever, chills, and weight loss, Eyes: Negative for injury, jr8 pain, redness, and discharge, ENT: Negative for injury, pain, and discharge, Neck: Negative for injury, pain, and swelling, Cardiovascular: Negative for chest pain, palpitations, and edema, Back: Negative for injury and pain, MS/Extremity: Negative for injury and deformity, Skin: Negative for injury, rash, and discoloration, Neuro: Negative for headache, weakness, numbness, tingling, and seizure. 10:27 Respiratory: Positive for cough, shortness of breath. 10:27 Abdomen/GI: Positive for abdominal pain, nausea, Negative for vomiting, diarrhea, hematemesis, rectal bleeding. Exam: 10:27 Eyes: Pupils equal round and reactive to light, extra-ocular motions intact. Lids and jr8 lashes normal. Conjunctiva and sclera are non-icteric and not injected. Cornea within normal limits. Periorbital areas with no swelling, redness, or edema. ENT: Nares patent. No nasal discharge, no septal abnormalities noted. Tympanic membranes are normal and external auditory canals are clear. Oropharynx with no redness, swelling, or masses, exudates, or evidence of obstruction, uvula midline. Mucous membranes moist. Neck: Trachea midline, no thyromegaly or masses palpated, and no cervical lymphadenopathy. Supple, full range of motion without nuchal rigidity, or vertebral point tenderness. No Meningismus. Cardiovascular: Regular rate and rhythm with a normal S1 and S2. No gallops, murmurs, or rubs. Normal PMI, no JVD. No pulse deficits. Back: No spinal tenderness. No costovertebral tenderness. Full range of motion. Skin: Warm, dry with normal turgor. Normal color with no rashes, no lesions, and no evidence of cellulitis. MS/ Extremity: Pulses equal, no cyanosis. Neurovascular intact. Full, normal range of motion. Neuro: Awake and alert, GCS 15, oriented to person, place, time, and situation. Cranial nerves II-XII grossly intact. Motor strength 5/5 in all extremities. Sensory grossly intact. 10:27 Respiratory: the patient does not display signs of respiratory distress, Respirations: normal, Breath sounds: rales, that are mild, are located in both bases. 10:27 Abdomen/GI: Inspection: abdomen appears normal, Bowel sounds: active, all quadrants, Palpation: soft, in all quadrants, mild abdominal tenderness, in the umbilical area, right lower quadrant and left lower quadrant, mass, is not appreciated, rebound tenderness, is not appreciated, voluntary guarding, is not appreciated, involuntary guarding, is not appreciated, no appreciated organomegaly, Indicators: McBurney's point is not tender, Steen's sign is negative, Liver: tenderness, is not appreciated. 13:16 ECG was reviewed by the Attending Physician. jr8 Vital Signs: 10:40 BP 120 / 63; Pulse 98; Resp 18 S; Temp 97.4; Pulse Ox 91% on R/A; iw 12:30 BP 123 / 32; Pulse 85; Resp 16 S; Pulse Ox 97% on R/A; jg9 13:30 BP 114 / 25 RL; Pulse 79; Resp 14 S; Pulse Ox 96% on R/A; jg9 14:00 BP 117 / 36 RL; Pulse 80; Resp 13 S; Pulse Ox 94% on R/A; Pain 0/10; jg9 20:15 BP 133 / 33; Pulse 71; Resp 14; Pulse Ox 94% on 2 lpm NC; sm5 MDM: 10:31 Patient medically screened. jr8 12:34 Data reviewed: vital signs, nurses notes, lab test result(s), EKG, radiologic studies, jr8 plain films. Data interpreted: Pulse oximetry: on room air is 89 %. Interpretation: hypoxia. Counseling: I had a detailed discussion with the patient and/or guardian regarding: the historical points, exam findings, and any diagnostic results supporting the discharge/admit diagnosis, lab results, radiology results, the need for further work-up and treatment in the hospital. 12/18 10:27 Order name: CBC with Diff; Complete Time: 12:55 [facility] 12/18 10:27 Order name: CMP; Complete Time: 12:14 12/18 10:27 Order name: Lipase; Complete Time: 12:14 [facility] 12/18 10:27 Order name: SARS-COV-2 RT PCR (Document "Date of Onset" if Symptomatic); Complete Time: 12:14 12/18 10:27 Order name: Blood Culture Adult (2) 12/18 10:27 Order name: Flu; Complete Time: 11:39 12/18 10:27 Order name: CT Abd/Pelvis - IV Contrast Only 12/18 10:57 Order name: Chest Abdomen Pelvis W Cont; Complete Time: 12:14 EDND 12/18 12:27 Order name: Manual Differential; Complete Time: 12:55 EDND 12/18 10:27 Order name: IV Saline Lock; Complete Time: 11:21 12/18 10:27 Order name: Labs collected and sent; Complete Time: 11:21 8 12/18 10:27 Order name: EKG - Nurse/Tech; Complete Time: 13:26 8 12/18 10:27 Order name: EKG; Complete Time: 10:28 8 12/18 15:55 Order name: CONS Physician Consult EDMS EC:16 Rate is 81 beats/min. Rhythm is regular, Sinus Rhythm. Right axis deviation noted. LA jr8 interval is normal at 176 msec. QRS interval is normal at 80 msec. QT interval is normal at 410 msec. No Q waves. T waves are Normal. No ST changes noted. Clinical impression: Normal ECG. Interpreted by me. Reviewed by me. Administered Medications: 13:00 Drug: Zofran (Ondansetron) 4 mg Route: IVP; Site: right forearm; jg9 14:12 Follow up: Response: No adverse reaction; Nausea is decreased jg9 14:02 Drug: Rocephin (cefTRIAXone) 1 grams Route: IV; Rate: calculated rate; Infused Over: 30 jg9 mins; Site: right forearm; 14:43 Follow up: IV Status: Completed infusion; IV Intake: 50ml jg9 14:43 Dru mg of (Zithromax (azithromycin) 500 mg, NS 0.9% 250 ml) Route: IVPB; Infused jg9 Over: 1 hrs; Site: right forearm; 16:39 Drug: SOLU-Medrol (methylPrednisoLONE) 125 mg Route: IVP; Site: right forearm; jg9 Disposition Summary: 12/18/21 12:36 Hospitalization Ordered Hospitalization Status: Inpatient Admission 8 Provider: Izabela Lemos Location: Telemetry/MedSur (Inpatient) [facility] Condition: Stable jr8 Problem: new jr8 Symptoms: have improved jr8 Bed/Room Type: Standard [facility] Room Assignment: 418(12/18/21 18:39) bd Diagnosis - Pneumonia due to SARS-associated coronavirus jr8 - Respiratory failure, unspecified with hypoxia jr8 - Chronic kidney disease, stage 5 jr8 Forms: - Medication Reconciliation Form jr8 - SBAR form jr8 Signatures: Dispatcher [employer] EDMS Genesis Larson Irene, RN RN iw Roszak, Josh, PA PA jr8 Umu Kimbrough RN RN jg9 Corrections: (The following items were deleted from the chart) 10:57 10:32 Abdomen ordered. EDMS EDMS 10:58 10:34 Thorax Wo Con+CT.RAD.BRZ ordered. EDMS EDMS 12:27 11:30 CBC Smear Scan ordered. EDMS EDMS 18:39 12:36 jr8 bd
[2021-12-18] MEDS ORDERED: ONDANSETRON 4 MG/2 ML VIAL ONE ×2 (12:45→14:46)
[2021-12-18] MEDS ORDERED: NA CHLORIDE 0.9% 250 ML ONE (13:35)
[2021-12-18] MEDS ORDERED: CEFTRIAXONE 1000 MG/VIAL ONE (13:35)
[2021-12-18] MEDS ORDERED: AZITHROMYCIN 500 MG INJ IVPB ONE (13:35)
[2021-12-18] MEDS ORDERED: NA CHLORIDE 0.9% 50 ML ONE (13:35)
[2021-12-18] MEDS ORDERED: METHYLPREDNISOLONE 125 MG INJ ONE (16:02)
[2021-12-18] MEDS ORDERED: GLUCAGON 1 MG/VIAL IM PRN (19:06)
[2021-12-18] MEDS ORDERED: ACETAMINOPHEN 325 MG TABLET PO PRN (19:06)
[2021-12-18] MEDS ORDERED: ONDANSETRON 4 MG/2 ML VIAL IV PRN (19:06)
[2021-12-18] MEDS: INSULIN -REGULAR HUMAN 50 UNIT/0.5 ML ML SQ SCH ×2 (19:06→21:00)
[2021-12-18] MEDS ORDERED: D50W 25 GM/50 ML SYRINGE IV PRN (19:06)
[2021-12-18] MEDS ORDERED: D10W 125 ML IV PRN (19:17)
[2021-12-18] MEDS ORDERED: FAMOTIDINE 20 MG/2 ML VIAL IV SCH (21:00)
[2021-12-18] MEDS ORDERED: METHYLPREDNISOLONE 40 MG INJ IV SCH (21:00)
[2021-12-18] MEDS: HEPARIN 5000 UNIT/ML 1 ML VIAL SQ SCH (21:24)
[2021-12-19 00:40] VITALS: BMI 28.3
[2021-12-19 03:54] LABS: Absolute Lymphocytes (CBC) 0.4 K/uL (0.7-4.9); Hematocrit 34.3 % (39.6-49.0); Lymphocytes % 2.1 % (15.3-44.8); MCV 96.1 fL (80-100); MPV 8.5 fL (7.6-11.3); RBC Red Blood Cell Count 3.57 M/uL (4.33-5.43)
[2021-12-19 04:09] LABS: Ferritin 2969.1 ng/mL (26-388); Potassium 5.4 mmol/L (3.5-5.1)
[2021-12-19 04:51] LABS: Blood Morphology Comment NOT SEEN (NOT SEEN); Platelet Estimate ADEQ
[2021-12-19] MEDS ORDERED: VANCOMYCIN 1 GM in NA CHLORIDE 0.9% 250 ML IVPB ONE (07:30)
[2021-12-19] MEDS: INSULIN -REGULAR HUMAN 50 UNIT/0.5 ML ML SQ SCH ×5 (07:30→21:23)
[2021-12-19] MEDS: CEFTRIAXONE 1,000 MG in NA CHLORIDE 0.9% 50 ML IVPB SCH (07:54)
[2021-12-19] MEDS: FAMOTIDINE 20 MG/2 ML VIAL IV SCH (07:55)
[2021-12-19] MEDS: HEPARIN 5000 UNIT/ML 1 ML VIAL SQ SCH ×2 (07:55→21:12)
[2021-12-19] MEDS: GABAPENTIN 300 MG CAP PO SCH ×2 (07:55→21:10)
[2021-12-19] MEDS: ASPIRIN EC 81 MG TAB PO SCH (07:56)
[2021-12-19] MEDS: CLOPIDOGREL 75 MG TABLET PO SCH (07:56)
[2021-12-19] MEDS ORDERED: VANCOMYCIN 1 GM in NA CHLORIDE 0.9% 250 ML IVPB SCH (08:00)
[2021-12-19] MEDS: AZITHROMYCIN IV 250 MG in NA CHLORIDE 0.9% 250 ML IVPB SCH (08:08)
[2021-12-19] MEDS ORDERED: METHYLPREDNISOLONE 40 MG INJ IV SCH (09:00)
[2021-12-19] MEDS: MORPHINE 2 MG/ML SYR IV PRN ×2 (11:26→16:24)
--- NOTE | 2021-12-19 13:05 | EKG ---
Test Date: 2021-12-18 Test Time: 12:44:44 Automatic Maintainer: ARCHIE MEASUREMENT RESULTS: Intervals: Rate: 81 UT: 176 QRSD: 80 QT: 410 QTc: 476 [place]: P: 73 UT: 176 QRS: 166 T: 100 INTERPRETIVE STATEMENTS: Normal sinus rhythm Right axis deviation Septal infarct, age undetermined Abnormal ECG Compared to ECG 02/23/2021 19:39:10 Right-axis deviation now present Myocardial infarct finding now present ST (T wave) deviation no longer present Electronically Signed On 12-19-21 13:04:30 CDT by Justin Phillips
--- NOTE | 2021-12-19 15:34 | CON ---
Date of Consultation: 12/19/2021 Reason For Consultation: Elevated BUN and creatinine, hyperkalemia. History Of Present Illness: This is a 56-year-old gentleman, well known to me from dialysis with significant past medical history of diabetes complicated with neuropathy, nephropathy, hypertension, hyperlipidemia, CAD, PAD status post toe amputation, end-stage renal disease, on hemodialysis, Thursday, Thursday, Thursday, the patient was on the dialysis yesterday, the patient started complaining from abdominal pain without any nausea. On exam, the patient has severe tenderness on the abdomen. For that reason, the patient was referred to the hospital. In the hospital, the patient was COVID positive, CT showed pneumonia and enteritis. For that reason, the patient was admitted. Past Medical History: Includes; 1. Hypertension. 2. Hyperlipidemia. 3. End-stage renal disease, on hemodialysis Thursday, Thursday, Thursday at [facility] through left arm AV fistula. 4. Diabetes complicated with neuropathy and nephropathy. 5. CAD. 6. PAD, status post MTA. 7. Depression. 8. Insomnia. Allergies: TO APIXABAN. Home Medications: Include; 1. Insulin. 2. Gabapentin. 3. Aspirin. 4. Midodrine. 5. Renvela. Past Surgical History: Includes; 1. Angioplasty. 2. Foot debridement. 3. AV fistula. 4. MTA. Social History: Lives with father. Denied smoke, denied drinking, denied drugs abuse. Family History: Positive for diabetes. Review of Systems: Head and Neck: No red eye. No ear pain. GI: Has abdominal pain. Has nausea. No vomiting. : No polyuria. No dysuria. No hematuria. Meat Smoker: Not applicable. Respiratory: Has cough. Cardiovascular: No chest pain. Endocrine: No polydipsia. Skin: No rash. Neuro: Has neuropathy. Musculoskeletal: Has foot pain. Physical Examination: General: When I saw the patient; the lying in bed, in pain. Vital Signs: Blood pressure 146/66, pulse of 78, afebrile. Chest: Crackles bilateral, more prominent on the left side. Heart: S1, S2. Systolic murmur. Abdomen: Soft, tender. No guarding or rebound. Extremities: Left MTA, dressing on the right. Neurologic: Alert. No focality. Laboratory Data: WBC 20.6, H and H 11.2/34.3. Sodium 136, potassium 5.4, bicarb 26, BUN 39, creatinine 6.6, calcium 7.2, ferritin 2969. CT positive for pneumonia and enteritis. Blood culture 1 bottle positive for gram-positive cocci. Current Medications: The patient on include; 1. Azithromycin. 2. Ceftriaxone. 3. Vancomycin. 4. Plavix. 5. Atorvastatin. 6. Gabapentin. 7. Solu-Medrol. Assessment And Plan: 1. End-stage renal disease with marginal hyperkalemia. I am going to go ahead and arrange for dialysis tomorrow. The patient is going to be dialyzed on low- potassium bath. 2. Bacteremia. I am going to repeat a blood culture with dialysis tomorrow. 3. Hyperkalemia. The patient is going to be dialyzed on low-potassium bath. I do not see the need to treat currently as it is just marginal. 4. Anemia of chronic kidney disease. No need for CESIA given the level of hemoglobin. 5. COVID pneumonia. Continue current antibiotic. We will follow up with primary. 6. Enteritis. Continue current antibiotic. 7. Diabetes as by primary. 8. Congestive heart failure. We will challenge the patient tomorrow on dialysis. Thank you, Dr. Lemos for allowing us to participate in the care of your patient. Time spent examining the patient [id number], reviewing the data, lab and radiology, discussing the case with the patient, discussing the case with the nurse, discussing the case with hospitalist team more than 65 minutes. KISHORE Voice ID: [id number] Report ID: [id number] [facility] CENTERMariah
[2021-12-19] MEDS ORDERED: REMDESIVIR (EUA) 200 MG in NA CHLORIDE 0.9% 250 ML IV ONE (16:00)
[2021-12-19] MEDS ORDERED: dexAMETHasone 4 MG TAB PO SCH (21:00)
[2021-12-19] MEDS: ATORVASTATIN 40 MG TAB PO SCH (21:10)
[2021-12-19] MEDS: MELATONIN 5 MG TABLET PO SCH (21:10)
[2021-12-19] MEDS: METHYLPREDNISOLONE 125 MG INJ IV SCH (21:12)
[2021-12-20] MEDS: MORPHINE 2 MG/ML SYR IV PRN ×3 (04:24→18:36)
[2021-12-20 04:48] LABS: Albumin 2.4 g/dL (3.4-5.0); Bilirubin Total 0.6 mg/dL (0.2-1.0); Protein, Total 6.9 g/dL (6.4-8.2)
[2021-12-20 04:52] LABS: Potassium 5.9 mmol/L (3.5-5.1)
[2021-12-20] MEDS: INSULIN -REGULAR HUMAN 50 UNIT/0.5 ML ML SQ SCH ×4 (07:55→21:00)
[2021-12-20] MEDS: CEFTRIAXONE 1,000 MG in NA CHLORIDE 0.9% 50 ML IVPB SCH (07:57)
[2021-12-20] MEDS: HEPARIN 5000 UNIT/ML 1 ML VIAL SQ SCH ×2 (08:00→21:00)
[2021-12-20] MEDS: GABAPENTIN 300 MG CAP PO SCH ×2 (08:00→20:59)
[2021-12-20] MEDS: FAMOTIDINE 20 MG/2 ML VIAL IV SCH (08:00)
[2021-12-20] MEDS: METHYLPREDNISOLONE 125 MG INJ IV SCH (08:00)
[2021-12-20] MEDS: CLOPIDOGREL 75 MG TABLET PO SCH (08:00)
[2021-12-20] MEDS: ASPIRIN EC 81 MG TAB PO SCH (08:00)
[2021-12-20] MEDS: AZITHROMYCIN IV 250 MG in NA CHLORIDE 0.9% 250 ML IVPB SCH (08:10)
[2021-12-20] MEDS: METHYLPREDNISOLONE 40 MG INJ IV SCH ×2 (09:00→21:01)
--- NOTE | 2021-12-20 09:11 | HP ---
Date of Admission: 12/18/2021 Chief Complaint: Cough, shortness of breath, nausea, diarrhea. History Of Present Illness: Mr. Gambino is a pleasant 56-year-old male patient who has multiple ch ronic medical problems including end-stage renal disease, on hemodialysis, yesterday went to his dial ysis, and after the dialysis was done, he was sent to the emergency room as he has been having some c ough, chest congestion, shortness of breath, nausea, abdominal pain, and diarrhea. After the patient was evaluated in the emergency room, he was admitted to the hospital with COVID-19 infection, bilate ral pneumonia. When I saw him this morning, he was lying in bed not in any distress. Allergies: NO KNOWN ALLERGIES. Medications: According to office list, he is on aspirin 81 mg daily, clopidogrel 75 mg daily, atorva statin 40 mg daily at bedtime, gabapentin 300 mg 3 times a day, Lantus insulin 6 units subcutaneous i njection 2 times a day if fingerstick blood sugar glucose is higher than 150, midodrine 5 mg daily, o meprazole 20 mg daily, Renvela. Review of Systems: GI: As mentioned above. Respiratory: As mentioned above. Constitutional: As mentioned above. All other systems reviewed and negative. Past Medical History: Significant for stroke, diabetic neuropathy, obstructive sleep apnea, diabetes mellitus, hypertension, hyperlipidemia, coronary artery disease, gastroesophageal reflux disease, en d-stage renal disease, anemia due to chronic kidney disease, peripheral vascular disease. Past Surgical History: Cataract surgery, coronary artery stent placement, and coronary artery bypass surgery, cholecystectomy, left foot transmetatarsal amputation in 2020. Family History: Father has history of SC, congestive heart failure, diabetes, hypertension. Mother , had Alzheimer's disease. Sister has colitis. Social History: Negative for smoking and negative for alcohol use. Physical Examination: Vital Signs: Temperature 97, pulse 84, respiratory rate 19, blood pressure 182/88, oxygen saturation 100% on 2 L/minute nasal cannula. Height 5 feet 5 inches, weight 170 pounds. General: Awake, alert, oriented, not in distress. HEENT: Head atraumatic, normocephalic. Conjunctivae nonerythematous. Sclerae white. Mouth, no thr ush or edema noted. Ears/Nose, no mass, lesion, discharge noted. Neck: Supple. No JVD, lymph nodes, bruit, thyromegaly noted. Lungs: Presence of rales noted in both lung devlin. Heart: Normal heart sounds, no murmur or gallop. Abdomen: Soft, bowel sounds normal. No guarding, rigidity, tenderness, mass, hepatosplenomegaly, dis tention, or bruit noted. Extremities: Left foot has a transmetatarsal amputation. There is no open wound. Has hard thick sk in on the plantar aspect of the left foot but no open area. No evidence of any infection or swelling . Right foot exam is unremarkable. Skin: No rash, ulcer, cellulitis. Lymphatics: No lymph node enlargement in neck, supraclavicular, infraclavicular region. Neuro: No focal neurological deficit. Chest: Unremarkable. External Genitalia: Deferred. Rectal: Deferred. Laboratory Data: White count , hemoglobin 11.9, platelets 184. Today, white count 20.6, h emoglobin 11.2, platelets 160. Yesterday, bands were 20. Today, bands were 16. Yesterday, sodium 1 39, potassium 4.3, chloride 98, bicarb 32, BUN 31, creatinine 5.96, glucose 137. Today, sodium 136, potassium 5.4, chloride 101, bicarb 26, BUN 39, creatinine 6.68, glucose 171. Liver function tests u nremarkable. Lipase 25. COVID-19 test positive. Influenza A and B negative. CAT scan of the chest , abdomen, and pelvis done in the emergency room shows evidence of left upper lobe, left lower lobe, and right-sided pneumonia. His blood culture was reported positive as of this morning. His CRP is 3 58. Impression: 1.Bacterial pneumonia. 2.COVID-19 infection. 3.End-stage renal disease, on hemodialysis. 4.Anemia due to chronic kidney disease. 5.Hyperkalemia. 6.Hypertension. 7.Hyperlipidemia. 8.Coronary artery disease. 9.Gastroesophageal reflux disease. 10.Diabetes mellitus with chronic kidney disease. 11.Diabetic neuropathy. 12.Obstructive sleep apnea. 13.Acute respiratory failure with hypoxia. Plan: 1.We will admit the patient to the hospital for further evaluation and management of this problem. The patient is appropriate for inpatient and is expected to spend 2 midnights in the hospital. 2.The patient's oxygen saturation was 89% when he came into ER. He is on oxygen 2 L/minute. We milena l continue that. He was started on empiric antibiotic, ceftriaxone and azithromycin, got the first d ose in the emergency room yesterday. We will continue that today. Solu-Medrol which was started 80 mg 2 times a day, we will reduce the dose to 40 mg 2 times a day. Continue ceftriaxone and azithromy papa per order. We will start vancomycin considering positive blood culture which was reported this paige daly. Consult Dr. Yung from Pulmonary Service. We will also consult ms sql developer for dialysis support, and the patient did get dialysis yesterday after his presentation to the hospital because o f the IV contrast, and we will continue to follow with ms sql developer. Home medications will be contin ued per order. Diabetes will be managed with insulin sliding scale, and I will see him tomorrow for followup. The patient has received 3 doses of COVID-19 vaccine, and this was Pfizer vaccine, first d ose August 02, 2020, second dose August 23, 2020, and a booster dose, May 06, 2021. We will give h eparin 5000 units subcutaneous injection every 12 hours for DVT prophylaxis. GEORGINA/MODL Voice ID: [id number]
[2021-12-20] MEDS: REMDESIVIR (EUA) 100 MG in NA CHLORIDE 0.9% 250 ML IV SCH (09:20)
[2021-12-20] MEDS: GUAIFENESIN/CODEINE 5ML UCUP PO SCH ×3 (09:21→21:00)
--- NOTE | 2021-12-20 09:21 | P.PN ---
Subjective Date of Service: 12/20/21 Subjective: Other (Received HD today.) Physical Examination - Vital Signs Temperature: 97.3 F Blood Pressure: 96/44 Pulse: 77 Respirations: 19 Pulse Ox (%): 98 - Physical Exam General: In no apparent distress HEENT: Atraumatic, Normocephalic Neck: Supple, JVD not distended Respiratory: Other (symmetric chest expansion) Cardiovascular: No rubs, No murmurs Gastrointestinal: Soft and benign, No rebound Musculoskeletal: No clubbing Integumentary: No warmth Neurological: Normal speech, Normal tone Lymphatics: No axilla or inguinal lymphadenopathy Urinary: Other (no bladder distention) External genitalia: Deferred Rectal: Deferred - Studies Microbiology Data (last 24 hrs): 12/18/21 11:10 Blood - Blood Blood Culture Gram Stain - Final Assessment And Plan - Plan 1. ESRD. Received HD today. HD access L arm AVF. EDW 73 kgs. Renal diet. Monitor renal panel. 2. Hyperkalemia. HD received today using low K bath. 3. Anemia of chronic kidney disease. H/H at goal, monitor. 4. COVID pneumonia. Mngt per primary team. 5. Enteritis. Continue current antibiotic. 6. DM2. Mngt per primary team. 7. CHF. HD/UF as above.
[2021-12-20] MEDS ORDERED: LIDOCAINE 1% MPF 2 ML AMPULE SQ ONE (13:38)
[2021-12-20] MEDS ORDERED: MIDODRINE HCL 5 MG TABLET PO PRN (14:58)
--- NOTE | 2021-12-20 15:08 | PN ---
Date of Progress Note: 12/20/2021 Subjective: The patient was seen this morning for followup. No new complaints or problems reported by patient. He was lying in bed, not in distress. Objective: Vital Signs: Reviewed. HEENT: Unremarkable. Lungs: Clear to auscultation. Heart: Sounds normal. Abdomen: Soft. Bowel sounds normal. No guarding, rigidity, tenderness, distention. Extremities: No leg edema. Laboratory Data: Sodium 133, potassium 5.9, chloride 96, bicarb 24, BUN 61, creatinine 7.47, glucose 224. Impression: 1.Bacterial pneumonia. 2.Sepsis. 3.COVID-19 infection. 4.End-stage renal disease, on hemodialysis. 5.Hyperkalemia. 6.Anemia due to chronic kidney disease. Plan: We will go ahead and continue current vancomycin. We will continue ceftriaxone and Zithromax per order. The patient is remdesivir for COVID-19 infection. Currently on Solu-Medrol 80 mg 2 times a day and we will reduce dose to 40 mg 2 times a day and details were discussed with Dr. Dilshad rivera o agrees with that plan. We will also continue heparin 5000 units subcutaneous injection every 12 ho urs. I did ask him to contact senior physical therapist regarding this morning's potassium and see if they can arrange for dialysis earlier this morning instead of waiting. GEORGINA/MODL Voice ID: [id number] Report ID: [id number]
--- NOTE | 2021-12-20 16:34 | P.CNS ---
Date of Consult: 12/20/21 Reason for Consult: Pneumonia Chief Complaint: Pneumonia positive for coronavirus History of Present Illness: Patient is 56 years of age multiple medical problems including end-stage renal disease multiple amputations he is on hemodialysis M to the emergency room worsening cough congestion shortness of breath abdominal pain diarrhea bilateral pneumonia tested positive for COVID had dense bilateral consolidation appears to be fairly comfortable Allergies apixaban [From Eliquis] Allergy (Verified 08/08/20 03:16) Itching/Hives/Rash Home Medications: Melatonin [Melatonin*] 10 mg PO BEDTIME 09/29/12 Omeprazole [Prilosec] 20 mg PO DAILY 09/29/12 Aspirin [Aspirin EC 81 MG] 81 mg PO DAILY 08/08/20 Gabapentin 300 mg PO BID 12/18/21 Insulin Glargine,Hum.rec.anlog [Lantus] See Protocol SQ ACHS 12/18/21 Linagliptin [Tradjenta] 5 mg PO DAILY 12/18/21 Midodrine HCl 5 mg PO DAILY 12/18/21 - Past Medical/Surgical History Diabetic: Yes -: DM IDDM -: ESRD w/ dialysis -: HLD -: HTN -: GERD -: Insomnia -: Diabetic Neuropathy -: CABG - Family History Father Medical History: Diabetes Brother Medical History: Diabetes Sister Medical History: Diabetes - Social History Smoking Status: Never smoker Alcohol use: No CD- Drugs: No Caffeine use: No Place of Residence: Home Review of Systems 10-point ROS is otherwise unremarkable General: Weakness Respiratory: Cough, Shortness of Breath Physical Examination Temp Pulse Resp BP Pulse Ox 97.3 F 79 16 142/80 H 96 12/20/21 12:00 12/20/21 12:00 12/20/21 14:14 12/20/21 12:00 12/20/21 14:14 General: Alert, Oriented x3 HEENT: Atraumatic Neck: Supple Respiratory: Crackles/rales (Crackles bilateral) Gastrointestinal: Normal bowel sounds, Soft and benign - Problems (1) Pneumonia Current Visit: Yes Status: Acute Plan: Patient is 56 years of age end-stage renal disease multiple amputations admitted with bilateral pneumonia bilateral consolidations left greater than right white count is elevated blood cultures positive gram-positive cocci in clusters patient is on multiple antibiotics vital signs otherwise stable oxygenation satisfactory doubt coronavirus pneumonia agree with low-dose steroids Qualifiers: Laterality: unspecified laterality
[2021-12-20] MEDS: ATORVASTATIN 40 MG TAB PO SCH (20:59)
[2021-12-20] MEDS: MELATONIN 5 MG TABLET PO SCH (22:10)
[2021-12-21] MEDS: METHYLPREDNISOLONE 40 MG INJ IV SCH ×3 (08:53→20:37)
[2021-12-21] MEDS: CEFTRIAXONE 1,000 MG in NA CHLORIDE 0.9% 50 ML IVPB SCH ×2 (08:53→09:00)
[2021-12-21] MEDS: FAMOTIDINE 20 MG TAB PO SCH (08:54)
[2021-12-21] MEDS: CLOPIDOGREL 75 MG TABLET PO SCH (08:54)
[2021-12-21] MEDS: ASPIRIN EC 81 MG TAB PO SCH (08:54)
[2021-12-21] MEDS: HEPARIN 5000 UNIT/ML 1 ML VIAL SQ SCH ×2 (08:54→20:37)
[2021-12-21] MEDS: GABAPENTIN 300 MG CAP PO SCH ×2 (08:54→20:37)
[2021-12-21] MEDS: GUAIFENESIN/CODEINE 5ML UCUP PO SCH ×3 (08:54→20:36)
[2021-12-21] MEDS: INSULIN -REGULAR HUMAN 50 UNIT/0.5 ML ML SQ SCH ×4 (08:55→20:36)
[2021-12-21] MEDS: REMDESIVIR (EUA) 100 MG in NA CHLORIDE 0.9% 250 ML IV SCH (09:00)
[2021-12-21] MEDS ORDERED: AZITHROMYCIN 250 MG TAB PO SCH (09:00)
--- NOTE | 2021-12-21 10:39 | RAD REPORT ---
EXAM DESCRIPTION: Jarred Single View12/21/2021 9:22 am CLINICAL HISTORY: Chest pain COMPARISON: December 18, 2021 FINDINGS: Worsening in extensive left lung consolidation. Mild worsening in right lung alveolar opacities. Cardiomegaly. Postsurgical changes involve chest IMPRESSION: Worsening in bilateral pulmonary opacities probably pneumonia
[2021-12-21] MEDS ORDERED: FUROSEMIDE 40 MG TABLET PO ONE (11:04)
[2021-12-21] MEDS: levoFLOXacin 250 MG TAB PO SCH (12:30)
--- NOTE | 2021-12-21 13:00 | PN ---
Date of Progress Note: 12/21/2021 Subjective: The patient was seen this morning for followup. He was lying in bed, not in distress. Vital signs reviewed. The patient reports that his cough and abdominal pain is not any better and [facility] medicine is not helping as much, but morphine helps him better and he is requesting morphine. Objective: Vital Signs: Reviewed. HEENT: Unremarkable. Lungs: Bilateral good and equal air entry. Presence of rales in both lung devlin. Not in any respi ratory distress. Heart: Sounds normal. Abdomen: Soft. Bowel sounds normal. No guarding, rigidity, tenderness, distention. Extremities: No leg edema. Laboratory Data: Pending. Chest x-ray from today shows worsening of bilateral pneumonia. Impression: 1.Pneumonia. 2.COVID-19 infection. 3.End-stage renal disease, on hemodialysis. 4.Diabetes mellitus. 5.Hypertension. Plan: The patient is on multiple IV medications including remdesivir for COVID and his pneumonia, bu t as I understand by indicating with the nursing staff that we do not have any IV access available, a nd the patient is refusing for nursing staff put IV access without ultrasound guidance and nurses are not able to provide that particular service at this time at our hospital and patient is refusing for nursing staff to try another IV access, and I was notified about this just a while ago, so I have as ked the nurse to have packing house supervisor the patient and try to communicate with him regardi ng importance of having IV access for his IV medications for COVID infection as well as pneumonia, an d he is already planning on IV pain medication which is morphine, and without any IV access, we will not be able to provide treatment. I have also advised to communicate with Dr. Yung regarding wor sening of his pneumonia problem and also to call and find out from candle making supervisor if we can put a midli ne or PICC line for this patient. The patient had his dialysis yesterday. Overall prognosis is guar ded and I also asked to contact the patient's family to see if they can communicate with him where he will be a little bit more compliant with IV access attempts if nursing staff needs to go ahead and t ry for him. GEORGINA/MODL Voice ID: [id number] Report ID: [id number]
[2021-12-21] MEDS: CALCITROL 0.25 MCG CAP PO SCH (15:37)
--- NOTE | 2021-12-21 17:15 | PN ---
Subjective: This is a 56-year-old gentleman with end-stage renal disease, diabetes, hypertension. The patient was admitted to the hospital with abdominal pain, found to have COVID pneumonia. The patient's chest x-ray finding had been worsening compared on admission. The patient is still on nasal cannula. The patient continued to have leukocytosis. Physical Examination: Vital Signs: When I saw the patient blood pressure 170/89, pulse of 86, afebrile. Chest: Crackles up to the upper zone. Heart: S1, S2, systolic murmur. Abdomen: Soft, nontender. Extremities: Left MTA, right toe amputation. Neurological: Alert, oriented x3. No focality. Laboratory Data: As of the , WBC 20.6, H and H 11.2/34.3. Sodium 133, potassium 5.9, bicarb 24, BUN 61, creatinine 7.4, calcium 6.9, albumin 2.4, corrected calcium is 8.1. Current Medications: The patient is on; include: 1. Aspirin. 2. Remdesivir. 3. Ceftriaxone. 4. Levaquin. 5. Vancomycin. 6. Midodrine. 7. Plavix. 8. Tylenol. 9. Lasix. Assessment And Plan: End-stage renal disease, over volume. I am going to go ahead and do a session of dialysis today, only sequential. We will do 2 hour with challenging of the fluid. Discussed with the patient. The patient verbalized understanding. 1. Hypertension, currently blood pressure on the lower side. We will utilize blood pressure for ultrafiltration. Continue midodrine as needed. 2. Respiratory failure, multifactorial, secondary to pneumonia/COVID/over volume. We will challenge. The patient will do sequential today again and we will follow up. We will repeat chest x-ray tomorrow after dialysis to evaluate about the infiltration of worsening pneumonia or just over volume. 3. Hyperkalemia, status post dialysis yesterday. It should be corrected. 4. Hyponatremia, secondary to dilutional, secondary to renal failure and over volume, will be corrected with dialysis. 5. Hypocalcemia with secondary hyperparathyroid. I will start the patient on calcitriol. We will follow up. 6. Anemia of chronic kidney disease. H and H above 11. I will avoid CESIA for the time being. Time spent examining the patient [id number], reviewing the data, placing order, discussing with by bedside, discussing with staff member including charge nurse and nursing and hospitalist 45 minutes. KISHORE Voice ID: [id number] Report ID: [id number] FAIZA
[2021-12-21 17:22] LABS: Absolute Lymphocytes (CBC) 0.2 K/uL (0.7-4.9); Hematocrit 35.9 % (39.6-49.0); Lymphocytes % 2.4 % (15.3-44.8); MCV 95.4 fL (80-100); MPV 7.9 fL (7.6-11.3); RBC Red Blood Cell Count 3.76 M/uL (4.33-5.43)
[2021-12-21 17:44] LABS: Albumin 2.5 g/dL (3.4-5.0); Bilirubin Total 0.5 mg/dL (0.2-1.0); Potassium 5.2 mmol/L (3.5-5.1)
[2021-12-21] MEDS: MORPHINE 2 MG/ML SYR IV PRN (18:48)
[2021-12-21] MEDS: ATORVASTATIN 40 MG TAB PO SCH (20:37)
[2021-12-21] MEDS: DOXYCYCLINE 100 MG CAP PO SCH (20:37)
--- NOTE | 2021-12-21 23:06 | CON ---
Date of Consultation: 12/21/2021 Reason For Consultation: Poor peripheral IV access. Brief History Of Present Illness: Patient is a 56-year-old male with a past medical history of multi ple chronic medical problems including dialysis; hypertension; coronary artery disease; end-stage giuliana al disease, on hemodialysis through left arm AV fistula, who had some cough, chest congestion, shortn ess of breath, nausea, abdominal pain, diarrhea, beginning on 12/18/2021. He was evaluated in the em ergency room and found to have a COVID-19 infection, bilateral pneumonia. As such, he was brought to the hospital and placed in isolation and started on medical management per Dr. Lemos and Dr. Walter hoover was consulted for explosive specialist recommendations. During his admission, he had IV acce ss, which ultimately was lost and due to his preexisting medical conditions, nurses attempted to plac e multiple peripheral IVs with no success. Midline was requested. However, the midline nurse is cur rently in the emergency room and unavailable due to being busy and as such I was consulted for placem ent of a peripheral IV access or possible central venous access if peripheral access is unavailable. Past Medical History: Stroke, diabetic neuropathy, diabetes, obstructive sleep apnea, hypertension, hyperlipidemia, coronary artery disease, GERD, end-stage renal disease, anemia due to chronic kidney disease, peripheral vascular disease, COVID-19 infection. Past Surgical History: Includes cataract surgery, coronary artery stent placement, coronary artery b ypass surgery, 4 vessel bypass, cholecystectomy, left foot transmetatarsal amputation, replacement of a left arm brachiocephalic fistula with revision and stent placement. Family History: Significant for myocardial infarction, coronary artery disease, congestive heart lainey lure, diabetes, hypertension, Alzheimer's. Social History: He denies smoking, alcohol, recreational drug use. Review of Systems: 10-point review of systems other than HPI currently denies Physical Examination: Vital Signs: At the time of my examination, his vital signs were a BMI of 28.3. Temperature 97.6, p ulse 82, respiratory 16, blood pressure 153/75, SpO2 of 96% on 1 L nasal cannula. General: He is awake, alert, and oriented. He is watching the baseball game. He is conversive from a psychiatric standpoint. He answers questions appropriately. He is in good spirits. Talked about the baseball game. HEENT: Otherwise normocephalic. His sclerae are anicteric. His mucous membranes are moist. His or opharynx is clear. Neck: Supple without JVD. Chest: Normal expansion and excursion. Extremities: He has a focused examination of extremities. He has a left functional brachiocephalic fistula with dilatation consistent with possible development of pseudoaneurysm, but currently functio nal. Chest: He has a well-healed midline sternotomy scar. He has multiple enlarged blood vessels on his chest. Skin: Peripheral vessels were evident on skin examination. Right upper extremity had multiple IV at tempts unsuccessfully with dressings in place covering these IV attempts. Lower extremities, he has multiple small abrasions and wounds, which are well healed at this point with discoloration of the sk in consistent with peripheral arterial disease and diabetic effect to bilateral lower extremities. Laboratory Exam: He had a laboratory exam, which revealed a white blood cell count of 9.7, hemoglobi n is 11.1, hematocrit 35.9, platelet count is 202. His neutrophils are 93%. He had a sodium of 132, potassium 5.2, chloride 95, carbon dioxide 25, BUN 55, creatinine 5.8, glucose is 325. Total biliru bin 0.5, AST 13, ALT is 19, alkaline phosphatase is 142. Serology showed a positive COVID rapid RNA by PCR. He had a chest x-ray performed on 12/21 officially read as worsening bilateral pulmonary op acities, probably pneumonia. He also had a CT chest, abdomen, and pelvis, which was read as dense ai rspace opacities filling the majority of left upper lobe with scattered airspace opacities in his lef t lower lobe and right lung devlin. Bilateral pneumonia. The primary consideration. Correlation ne eded with any other clinical laboratory findings of infection, however, airspace opacities can also r epresent alveolar edema from volume overload. No acute findings in the abdomen and pelvis, minimally prominent small bowel loops are nonspecific. Enteritis is not entirely excluded. Assessment/plan: A 56-year-old male who presents with positive COVID infection and pneumonia, curren tly being treated medically with poor peripheral IV access. 1.I will attempt peripheral IV access, likely from one of his enlarged chest veins as they appear st raight and relatively easy to access. 2.If peripheral access is unobtainable at this time, I will discuss the risks, benefits, and alterna tives and placement of a central venous catheter including, but not limited to bleeding, infection, d amage to surrounding tissues, need for further operation and procedures, possible pneumothorax if att empt is made in the chest or neck area. The pulmonary risks are obviously not associated. Patient a grees to proceed as indicated and prefers the peripheral IV at this time and we will discuss placemen t of a midline with the nursing staff when availability occurs. SHAHZAD/ANT Voice ID: [id number] Report ID: [id number]
[2021-12-22] MEDS: MELATONIN 5 MG TABLET PO SCH ×2 (00:22→20:42)
[2021-12-22] MEDS: MORPHINE 2 MG/ML SYR IV PRN ×4 (05:28→20:55)
[2021-12-22 06:06] LABS: Albumin 2.4 g/dL (3.4-5.0); Bilirubin Total 0.5 mg/dL (0.2-1.0); Protein, Total 6.6 g/dL (6.4-8.2)
[2021-12-22 06:10] LABS: Potassium 5.6 mmol/L (3.5-5.1)
[2021-12-22] MEDS: INSULIN -REGULAR HUMAN 50 UNIT/0.5 ML ML SQ SCH ×4 (07:30→20:42)
[2021-12-22] MEDS: CLOPIDOGREL 75 MG TABLET PO SCH (08:41)
[2021-12-22] MEDS: GUAIFENESIN/CODEINE 5ML UCUP PO SCH ×3 (08:41→20:43)
[2021-12-22] MEDS: CEFTRIAXONE 1,000 MG in NA CHLORIDE 0.9% 50 ML IVPB SCH (08:41)
[2021-12-22] MEDS: HEPARIN 5000 UNIT/ML 1 ML VIAL SQ SCH ×2 (08:42→20:42)
[2021-12-22] MEDS: FAMOTIDINE 20 MG TAB PO SCH (08:42)
[2021-12-22] MEDS: GABAPENTIN 300 MG CAP PO SCH ×2 (08:42→20:42)
[2021-12-22] MEDS: METHYLPREDNISOLONE 40 MG INJ IV SCH (08:42)
[2021-12-22] MEDS: ASPIRIN EC 81 MG TAB PO SCH (08:42)
[2021-12-22] MEDS: DOXYCYCLINE 100 MG CAP PO SCH ×2 (08:42→20:41)
[2021-12-22] MEDS: REMDESIVIR (EUA) 100 MG in NA CHLORIDE 0.9% 250 ML IV SCH (09:29)
--- NOTE | 2021-12-22 09:38 | P.PN ---
Subjective Date of Service: 12/22/21 Chief Complaint: Pneumonia positive for coronavirus Subjective: Improving (Pain much better he is feeling better eating and drinking abdominal discomfort is also improved no diarrhea) Review of Systems General: Weakness Respiratory: Shortness of Breath Physical Examination - Vital Signs Temperature: 96.5 F Blood Pressure: 162/87 Pulse: 82 Respirations: 18 Pulse Ox (%): 99 - Physical Exam General: Alert, In no apparent distress, Oriented x3 Assessment And Plan - Current Problems (Diagnosis) (1) Pneumonia Current Visit: Yes Status: Acute Plan: Patient is 56 years of age with end-stage renal disease admitted with coronavirus pneumonia stability of superinfection with bacteria is got interstitial changes left worse than the right White count is back down to normal DC IV Rocephin continue with p.o. levofloxacin finish the course of remdesivir check procalcitonin if test within normal limits DC IV vancomycin continue with p.o. doxycycline reduce the dose of steroid is currently on room air most likely the blood cultures are contaminant Qualifiers: Laterality: unspecified laterality
--- NOTE | 2021-12-22 14:36 | PN ---
Date of Progress Note: 12/22/2021 Subjective: Patient was seen this morning for followup. No new complaints or problems reported by h im. He is sitting upright, eating breakfast. He is on oxygen nasal cannula half a liter per minute. Not in respiratory distress. Objective: Vital Signs: Reviewed. HEENT: Unremarkable. Lungs: Bilateral good equal air entry. Minimal rales noted in left lung. Overall much better than before. Heart: Sounds normal. Abdomen: Soft. Bowel sounds normal. No guarding, rigidity, tenderness, or distention. Extremities: No leg edema. Laboratory Data: Yesterday, white count was normal at 9.7, hemoglobin 11.7, platelets 202. This mor poncho, sodium 133, potassium 5.6, chloride 96, bicarb 25, BUN 63, creatinine 6.22, glucose 168. Impression: 1.Pneumonia. 2.COVID-19 infection. 3.End-stage renal disease, on hemodialysis. 4.Hyperkalemia. 5.Anemia due to chronic kidney disease. Plan: Yesterday, Dr. Guerra was consulted for central line placement and after he communicated with radiator cleaner, they decided not to do the central line and he was able to establish IV access on the right upper anterior abdominal wall area, which is functioning well. The patient is getting his IV m edications through this access. I did talk to Dr. Yung and I was not able to review his chest x- ray film because of difficulties we are having after the new upgrades, but he was able to review that and he has informed me that chest x-ray has shown improvement now to the extent that he recommends t hat the patient takes just oral doxycycline and Levaquin and no need for any more IV antibiotics. Hi s blood culture, it appears to be skin contamination, so there is no evidence of any sepsis. With th is much improvement overall, there is a good possibility we might be able to discharge him to go back home within next day to 2 days depending on his condition. GEORGINA/MODL Voice ID: [id number] Report ID: [id number]
--- NOTE | 2021-12-22 14:43 | PN ---
Date of Progress Note: 12/22/2021 Subjective: The patient was admitted with over volume, sepsis, and pneumonia, respiratory failure, found to have enteritis and pneumonia with COVID pneumonia. The patient continued to have leukocytosis. The patient had extra dialysis yesterday, tolerated well. We managed to remove 2700. Physical Examination: Vital Signs: When I saw the patient; blood pressure 157/84, pulse of 84, afebrile. Chest: Crackles bilateral, more on the right side. Heart: S1, S2. Systolic murmur. Abdomen: Soft, nontender. Extremity: Trace edema. MTA on the left, toe amputation on the right. Laboratory Data: WBC 9.7, H and H 11.7/35.9. Sodium 133, potassium 5.6, bicarb 25, BUN 63, creatinine 6.7, calcium 7.3. Current Medications: The patient on include; 1. Doxycycline. 2. Remdesivir. 3. Levaquin. 4. Midodrine. 5. Atorvastatin. 6. Gabapentin. 7. Lasix. 8. Lidocaine. 9. Dexamethasone. Assessment And Plan: 1. End-stage renal disease, over volume. I am going to continue the patient on dialysis. We will do dialysis tomorrow. We will challenge the patient and we will follow up. 2. Hypertension, currently hypotension. I patient is midodrine dependent. We will continue utilizing blood pressure for more ultrafiltration. 3. Hyperkalemia. We will dialyze the patient on low-potassium bath. 4. Hyponatremia, dilutional, going to be corrected with dialysis. 5. Pneumonia as by primary. 6. COVID as by primary. 7. Enteritis. Continue current antibiotic. Time spent examining the patient [id number], reviewing the data, placing order, discussing with by bedside, discussing with staff member including charge nurse and nursing and hospitalist 35 minutes. SONALI/ANT Voice ID: [id number] Report ID: [id number] FAIZA
[2021-12-22] MEDS: ATORVASTATIN 40 MG TAB PO SCH (20:41)
[2021-12-22] MEDS: dexAMETHasone 4 MG TAB PO SCH (20:42)
[2021-12-23] MEDS: MORPHINE 2 MG/ML SYR IV PRN ×3 (00:31→20:20)
[2021-12-23 06:32] LABS: Albumin 2.4 g/dL (3.4-5.0); Bilirubin Total 0.5 mg/dL (0.2-1.0); Protein, Total 6.6 g/dL (6.4-8.2)
[2021-12-23 06:42] LABS: Potassium 6.3 mmol/L (3.5-5.1)
[2021-12-23] MEDS ORDERED: INSULIN -REGULAR HUMAN 50 UNIT/0.5 ML ML IV ONE ×2 (07:22→16:33)
[2021-12-23] MEDS ORDERED: ALBUTEROL 2.5 MG/3 ML NEB SOL NEB ONE (07:22)
[2021-12-23] MEDS ORDERED: DEXTROSE 10%-WATER 250 ML IV ONE (07:30)
[2021-12-23] MEDS: INSULIN -REGULAR HUMAN 50 UNIT/0.5 ML ML SQ SCH ×4 (07:30→20:20)
[2021-12-23] MEDS: GABAPENTIN 300 MG CAP PO SCH ×2 (07:40→20:19)
[2021-12-23] MEDS: HEPARIN 5000 UNIT/ML 1 ML VIAL SQ SCH ×2 (07:40→20:20)
[2021-12-23] MEDS: FAMOTIDINE 20 MG TAB PO SCH (07:40)
[2021-12-23] MEDS: GUAIFENESIN/CODEINE 5ML UCUP PO SCH ×3 (07:40→20:19)
[2021-12-23] MEDS: CLOPIDOGREL 75 MG TABLET PO SCH (07:43)
[2021-12-23] MEDS: dexAMETHasone 4 MG TAB PO SCH ×2 (07:43→20:19)
[2021-12-23] MEDS: DOXYCYCLINE 100 MG CAP PO SCH ×2 (07:43→20:19)
[2021-12-23] MEDS: ASPIRIN EC 81 MG TAB PO SCH (07:45)
[2021-12-23] MEDS ORDERED: LIDOCAINE 1% MPF 2 ML AMPULE SQ ONE (08:30)
[2021-12-23] MEDS: REMDESIVIR (EUA) 100 MG in NA CHLORIDE 0.9% 250 ML IV SCH (09:14)
[2021-12-23] MEDS: levoFLOXacin 250 MG TAB PO SCH (11:27)
[2021-12-23] MEDS: CALCITROL 0.25 MCG CAP PO SCH (11:55)
--- NOTE | 2021-12-23 12:40 | RAD REPORT ---
EXAM DESCRIPTION: RAD - Chest Single View - 12/22/2021 12:41 am CLINICAL HISTORY: Pnuemonia. COMPARISON: None. TECHNIQUE: Single view AP chest radiograph(s). FINDINGS: Moderate interstitial thickening and patchy opacification in the left lung. Possible small left-sided pleural effusion. No pneumothorax. Mild cardiomegaly. Median sternotomy wires. IMPRESSION: Moderate interstitial thickening and patchy opacification in the left lung. Possible sma ll left-sided pleural effusion. Pneumonia is in the differential in the appropriate clinical setting. Electronically signed by: Ayaka Schultz MD 12/22/2021 1:00 AM CDT Due to temporary technical issues with the PACS/Fluency reporting system, reports are being signed by the in house radiologists without review as a courtesy to insure prompt reporting. The interpreting radiologist is fully responsible for the content of the report.
[2021-12-23] MEDS ORDERED: INSULIN -REGULAR HUMAN 50 UNIT/0.5 ML ML SQ SCH ×2 (14:29→16:30)
[2021-12-23] MEDS ORDERED: SODIUM BICARB 325 MG TAB PO ONE (15:00)
[2021-12-23 16:29] LABS: Potassium 5.5 mmol/L (3.5-5.1)
[2021-12-23] MEDS ORDERED: GLUCAGON 1 MG/VIAL IM PRN ×2 (16:30→17:41)
[2021-12-23] MEDS ORDERED: D50W 25 GM/50 ML SYRINGE IV PRN ×2 (16:30→17:41)
[2021-12-23] MEDS ORDERED: INSULIN 70/30 100 UNITS/ML SQ SCH (16:30)
[2021-12-23] MEDS ORDERED: D10W 125 ML IV PRN (17:52)
[2021-12-23] MEDS: MELATONIN 5 MG TABLET PO SCH (20:19)
[2021-12-23] MEDS: ATORVASTATIN 40 MG TAB PO SCH (20:19)
--- NOTE | 2021-12-23 23:38 | PN ---
Date of Progress Note: 12/23/2021 Chief Complaint: End-stage renal disease, on hemodialysis; fluid overload; hyperkalemia; uncontrolle d diabetes. Subjective: Patient was admitted to the hospital because of sepsis, pneumonia, respiratory failure. He was found to have enteritis and pneumonia related to COVID infection. Patient has severe leukocy tosis. Blood cultures were obtained and pending. Patient received dialysis on Thursday. Today, he is due dialysis, although he primarily refused to be dialyzed with COVID in the dialysis r oom. Subsequently, he agreed to have dialysis in the room and plan is to dialyze him today. Patient has uncontrolled diabetes. Blood glucose is up to 400. Patient recently was started on Decadron, w hich may be a factor of uncontrolled diabetes and insulin was adjusted for treatment of uncontrolled diabetes. Review of Systems: Patient denies fever or chills. Physical Examination: Chest: Normal Respiratory effort. Crackles present. Heart: S1, S2. Abdomen: Soft, benign. Extremities: Some edema present in both legs. Impression: 1.End-stage renal disease, fluid overload, shortness of breath, COVID pneumonia. Patient will have dialysis with ultrafiltration to control fluid overload. Provide management for hyperkalemia treatme nt. The patient will continue low-potassium diet. 2.Diabetes mellitus, uncontrolled. Insulin was adjusted. 3.History of intradialytic hypotension. Continue midodrine prior to dialysis to prevent hypotensive episode. 4.Hyperkalemia. Patient will have dialysis with 2 potassium bath. 5.Hyponatremia secondary to ongoing uncontrolled diabetes. 6.Hypocalcemia. Patient has hypoalbuminemia, corrected calcium is in low normal range. Continue to monitor and use dialysate with 2.5 calcium. 7.COVID with enteritis and pneumonia per primary team. EB/MODL Voice ID: [id number] Report ID: [id number]
--- NOTE | 2021-12-24 05:39 | PN ---
Date of Progress Note: 12/23/2021 Subjective: The patient was seen this morning for followup. No new complaints or problems reported by him. Lying in bed, not in any distress, on 1 L nasal cannula oxygen. Objective: Vital Signs: Reviewed. HEENT: Unremarkable. Lungs: Bilateral good equal entry with some rales noted in lung devlin. Not using any accessory mus cles of respiration. Heart: Heart sounds normal. Abdomen: Soft, bowel sounds normal. No guarding, rigidity, tenderness, distention. Extremities: No leg edema. Laboratory Data: Sodium 128, potassium 6.3, chloride 93, bicarb 24, BUN 84, creatinine 7.24, glucose 286. Impression: 1.Pneumonia. 2.COVID-19 infection. 3.Hyperkalemia. 4.End-stage renal disease, on hemodialysis. 5.Hypertension. 6.Diabetes mellitus. Plan: The patient's potassium came back high and nurse was advised to contact [facility], and they did plan to have dialysis for the patient and treatment order for elevated potassium was given by ne phrologist. Subsequently, the patient's blood sugar had gone up during the course of day today and h e required extra subcutaneous and dose of IV regular insulin. The patient refused to go for dialysis downstair and he wanted dialysis to be done at bedside as I was informed by the nursing staff and everett joshua on he even refused that, so [facility] is going to do dialysis tomorrow. His repeat potassium today was 5.6. Continue current treatment for pneumonia. GEORGINA/MODL Voice ID: [id number] Report ID: [id number]
[2021-12-24 06:30] LABS: Albumin 2.5 g/dL (3.4-5.0); Bilirubin Total 0.5 mg/dL (0.2-1.0); Protein, Total 6.3 g/dL (6.4-8.2)
[2021-12-24 06:34] LABS: Potassium 6.4 mmol/L (3.5-5.1)
[2021-12-24] MEDS ORDERED: SOD POLYSTYREN SUL 15 GM/60 ML UCUP PO ONE (07:17)
[2021-12-24] MEDS ORDERED: INSULIN -REGULAR HUMAN 50 UNIT/0.5 ML ML SQ ONE (07:18)
[2021-12-24] MEDS ORDERED: D50W 25 GM/50 ML SYRINGE IV ONE (07:19)
[2021-12-24] MEDS ORDERED: DEXTROSE 10%-WATER 250 ML IV ONE (07:30)
[2021-12-24] MEDS: INSULIN -REGULAR HUMAN 50 UNIT/0.5 ML ML SQ SCH ×2 (07:30→11:30)
[2021-12-24] MEDS ORDERED: DEXTROSE 10%-WATER 500 ML IV ONE (07:31)
[2021-12-24] MEDS: GABAPENTIN 300 MG CAP PO SCH (08:31)
[2021-12-24] MEDS: FAMOTIDINE 20 MG TAB PO SCH (08:31)
[2021-12-24] MEDS: CLOPIDOGREL 75 MG TABLET PO SCH (08:31)
[2021-12-24] MEDS: ASPIRIN EC 81 MG TAB PO SCH (08:31)
[2021-12-24] MEDS: DOXYCYCLINE 100 MG CAP PO SCH (08:31)
[2021-12-24] MEDS: GUAIFENESIN/CODEINE 5ML UCUP PO SCH ×2 (08:31→14:00)
[2021-12-24] MEDS: HEPARIN 5000 UNIT/ML 1 ML VIAL SQ SCH (08:31)
[2021-12-24] MEDS: dexAMETHasone 4 MG TAB PO SCH (08:31)
--- NOTE | 2021-12-24 08:39 | RAD REPORT ---
EXAM DESCRIPTION: RAD - Chest Single View - 12/24/2021 8:22 am CLINICAL HISTORY: pneumonia COMPARISON: December 22 TECHNIQUE: AP portable chest image was obtained 12/24/2021 8:22 am . FINDINGS: Lung volumes are reduced compared to the prior study. This accentuates the lung parenchyma l opacification pattern. There has been no improvement. Pleural and parenchymal disease is not felt t o be substantially different when adjusting for the lower lung volume. Trachea is midline. Heart size is stable. Central vasculature is mostly obscured by the lung parenchy mal disease. No measurable pleural effusion and no pneumothorax. No acute bony abnormality seen. No acute aortic findings suspected. IMPRESSION: Interstitial and alveolar opacification not substantially different from prior imaging. Low lung volume accentuates the lung parenchymal opacification.
[2021-12-24 08:46] VITALS: BP 160/61; TEMP 97
[2021-12-24] MEDS ORDERED: MIDODRINE HCL 5 MG TABLET PO SCH (09:00)
[2021-12-24 11:00] VITALS: O2SAT 98
[2021-12-24] MEDS ORDERED: REMDESIVIR (EUA) 100 MG in NA CHLORIDE 0.9% 250 ML IV ONE ×2 (13:30→15:00)
--- NOTE | 2021-12-24 14:42 | PN ---
Date of Progress Note: 12/24/2021 Subjective: The patient was admitted with enteritis, abdominal pain, found to have COVID pneumonia, and hyperkalemia. The patient yesterday refused dialysis. Physical Examination: Vital Signs: Blood pressure 160/60, pulse of 83, afebrile. Chest: Decreased entry right base. Heart: S1, S2. Systolic murmur. Abdomen: Soft, nontender. Extremity: MTA on the left, toe amputation on the right. Neurologic: Alert. No focality. Laboratory Data: WBC 9.7, H and H 11.7/35.9. Sodium 128, potassium 6.4, bicarb 24, BUN 98, creatinine 8.1, calcium 7.3. Current Medications: The patient on include doxycycline, Levaquin, midodrine, Plavix, gabapentin, sodium bicarb, Pepcid, insulin. Assessment And Plan: 1. End-stage renal disease, over volume, hyperkalemic and hyponatremic, going to be corrected with dialysis. We will dialyze the patient on low-potassium bath and we will raise the sodium to establish better volume control and better blood pressure to challenge the patient. 2. Over volume. We will challenge the patient. 3. Hypertension, currently hypotension. We will continue to use midodrine, decrease temperature, and use a high sodium bath to establish better blood pressure for the ultrafiltration. 4. Hyperkalemia. The patient is going to be dialyzed on low-potassium bath 1 K bath by the end of the treatment. 5. Pneumonia as by primary. 6. Enteritis. Continue current antibiotic. 7. Hyponatremia, dilutional, will be corrected with dialysis. Time spent examining the patient [id number], reviewing the data, placing order, discussing with by bedside, discussing with staff member including charge nurse and nursing and hospitalist 35 minutes. KISHORE Voice ID: [id number] Report ID: [id number] FAIZA
--- NOTE | 2021-12-25 19:48 | DS ---
Date of Discharge: 12/24/2021 Disposition: Discharged to go home. Physical Examination: HEENT: Unremarkable. Lungs: Clear to auscultation on the right side. Left side, some rales present. Not in any respirat ory distress. Heart: Sounds normal. Abdomen: Soft. Bowel sounds normal. No guarding, rigidity, tenderness, or distention. Extremities: No leg edema. Discharge Medications And Instructions: 1.Continue all prior home medications. 2.Take doxycycline 100 mg 2 times a day for 10 days. 3.Levaquin 250 mg every other day and prescription was given for 7 days. So, it will last for 14 da ys. 4.Follow up at my office in 2 weeks. Hospital Course: Mr. Gambino is a pleasant male patient with multiple comorbidities, came into the emergency room with complaints of cough, congestion, shortness of breath, and some abdominal discomf ort. Please see dictated H and P for more information. After the patient was evaluated in the emerg ency room, he was diagnosed as bilateral pneumonia, left side was lot more extensive than the right s mar and he was positive for COVID-19 as well. The patient was admitted to the hospital. He was star franklin on empiric antibiotic and Dr. Yung from Pulmonary was consulted. The patient received remdes ivir also for Covid-19 infection and for bacterial pneumonia, he received IV antibiotics. Subsequent ly, antibiotics were changed to doxycycline and Levaquin and overall his condition has improved. Ini tially, he was requiring oxygen and last couple of days, he was only on 0.5 L/minute nasal cannula ox ygen. Today, his oxygen was discontinued and room air oxygen saturation was normal. The patient rec eived dialysis support with help of his director on air. The patient was discharged to go home in sta e condition with above-mentioned medications and instructions. Final Diagnoses: 1.COVID-19 infection. 2.COVID-19 pneumonia. 3.End-stage renal disease, on hemodialysis. 4.Type 2 diabetes mellitus. 5.Hypertension. 6.Hyperlipidemia. 7.Peripheral vascular disease. 8.Anemia due to chronic kidney disease. 9.Hyperkalemia. GEORGINA/MODL Voice ID: [id number] Report ID: [id number]
== END 2021-12-24 17:43 | disposition home or self-care (01) | DRG 177 ==
LOC: ER 09:26 → ERHOLD 15:52 → 4TH 19:02
PROVIDERS: ADMIT Internal Medicine; ATTEND Internal Medicine
PROC: XW033E5 Introduction of Remdesivir Anti-infective into Peripheral Vein, Percutaneous Approach, New Technology Group 5 (ICD-10-PCS; principal; 2021-12-19)
PROC: 5A1D70Z Performance of Urinary Filtration, Intermittent, Less than 6 Hours Per Day (ICD-10-PCS; 2021-12-20)
PROC: 5A1D70Z Performance of Urinary Filtration, Intermittent, Less than 6 Hours Per Day (ICD-10-PCS; 2021-12-21)
PROC: 5A1D70Z Performance of Urinary Filtration, Intermittent, Less than 6 Hours Per Day (ICD-10-PCS; 2021-12-23)
PROC: 5A1D70Z Performance of Urinary Filtration, Intermittent, Less than 6 Hours Per Day (ICD-10-PCS; 2021-12-24)
DX: U07.1 COVID-19 (principal); J12.82 Pneumonia due to coronavirus disease 2019; J15.9 Unspecified bacterial pneumonia; N18.6 End stage renal disease; I12.0 Hypertensive chronic kidney disease with stage 5 chronic kidney disease or end stage renal disease; E87.1 Hypo-osmolality and hyponatremia; E11.22 Type 2 diabetes mellitus with diabetic chronic kidney disease; E78.5 Hyperlipidemia, unspecified; I73.9 Peripheral vascular disease, unspecified; D63.1 Anemia in chronic kidney disease; E87.5 Hyperkalemia; E83.51 Hypocalcemia; E88.09 Other disorders of plasma-protein metabolism, not elsewhere classified; E11.40 Type 2 diabetes mellitus with diabetic neuropathy, unspecified; E11.21 Type 2 diabetes mellitus with diabetic nephropathy; K52.9 Noninfective gastroenteritis and colitis, unspecified; Z99.2 Dependence on renal dialysis
CPT/HCPCS: 36415; 71045; 71260; 74177; 80048; 80053; 80061; 80202; 82728; 82947; 83690; 84145; 85025; 86140; 87040; 87205; 87804; 90935; 93005; 94640; 94760; 96365; 96375; 99285; J0248; J0456; J1644; J1815; J2270; J2405; J2920; J2930; J3370; J7050; J8540; Q9967; U0003